=== PATIENT | female | born 1955 | race Caucasian/White ===

== ENCOUNTER 2020-09-08 09:31 | Outpatient (CLI) | payer OTHER, SELFPAY | END 2020-09-08 09:32 | disposition home or self-care (01) | LOC: ANHCOVIDVC 09:32 | PROVIDERS: PCP Family Medicine | DX: Z23 Encounter for immunization (principal) | CPT/HCPCS: 0001A; 91300 ==

== ENCOUNTER 2020-09-29 09:30 | Outpatient (CLI) | payer OTHER, SELFPAY | END 2020-09-29 09:31 | disposition home or self-care (01) | LOC: ANHCOVIDVC 09:30 | PROVIDERS: PCP Family Medicine | DX: Z23 Encounter for immunization (principal) | CPT/HCPCS: 0002A; 91300 ==

== ENCOUNTER 2020-10-03 12:03 | Outpatient (CLI) | payer OTHER, SELFPAY ==
--- NOTE | ~2020-10-03 | XR_ITS ---
EXAMINATION:XR cervical spine 4-5V DATE: 10/03/2020 12:19 INDICATION: Neck pain TECHNIQUE: AP, lateral, lateral swimmers and odontoid views of the cervical spine are provided. COMPARISON: 10/15/2018 FINDINGS: Alignment is normal. The odontoid is intact. No fracture is identified. There is unchanged moderate loss of intervertebral disc space height at C5-6 and C6-7. The vertebral body heights are ma intained. Small degenerative osteophytes project from the anterior endplates of multiple vertebral rhea dies. There is moderate multilevel facet and uncovertebral joint osteoarthritis Prevertebral soft tis sues are normal. IMPRESSION: 1. Moderate cervical spondylosis without acute findings or significant interval change. Reviewed, dictated and finalized at location A.
== END 2020-10-03 12:04 | disposition home or self-care (01) ==
PROVIDERS: PCP Family Medicine; Visit Provider Physician Assistant
DX: M47.892 Other spondylosis, cervical region (principal)
CPT/HCPCS: 72050

== ENCOUNTER 2021-03-17 19:44 | Emergency (ER) | payer OTHER, SELFPAY ==
--- NOTE | ~2021-03-17 | CT_ITS ---
EXAMINATION: CT brain wo con DATE: 03/18/2021 00:43 INDICATION: Right hemiparesis. TECHNIQUE: Computed tomography (CT) of the head was performed without intravenous contrast. The mA wa s adjusted according to patient size. Iterative reconstruction technique was employed. The dose-lengt h product was 605.33 mGy-cm. COMPARISON: None FINDINGS: There is no intracranial hemorrhage, acute infarction, or abnormal intracranial mass lesion . There are scattered areas of low attenuation in the cerebral white matter, which is within normal l imits for the patient's age. The ventricles are normal in size. There is mild mucosal thickening in t he paranasal sinuses. The orbits are normal. There is a small left mastoid effusion. IMPRESSION: 1. Normal aging brain. Reviewed, dictated and finalized at location A. IMPRESSION: 1. Normal aging brain.
--- NOTE | ~2021-03-17 | XR_ITS ---
EXAMINATION: XR chest 2V DATE: 03/17/2021 20:43 INDICATION: Weakness. Right-sided numbness and sweats. TECHNIQUE: PA and lateral views of the chest were obtained. COMPARISON: None FINDINGS: The lungs are clear with no focal airspace opacities, pulmonary edema, pleural effusion or pneumothor ax. The cardiomediastinal silhouette is normal. There are bridging osteophytes at multiple levels in the midthoracic spine consistent with diffuse idiopathic skeletal hyperostosis (DISH). IMPRESSION: 1. No acute cardiopulmonary disease. Reviewed, dictated and finalized at location A.
[2021-03-17 20:06] VITALS: BP 147/81; PULSE 63; RESP 14; TEMP 36.8; O2SAT 99
--- NOTE | 2021-03-17 20:10 | ECG_ITS ---
Measurements Intervals [place] Rate: 64 P: 44 CT: 172 QRS: -5 QRSD: 82 T: 49 QT: 398 QTc: 411 Interpretive Statements SINUS RHYTHM EARLY PRECORDIAL R/S TRANSITION LOW QRS VOLTAGE IN PRECORDIAL LEADS BORDERLINE T WAVE ABNORMALITY- ANTERIOR LEADS BORDERLINE ECG Electronically Signed On 03-18-2021 6:24:50 CDT by Parminder Anderson D.O.
[2021-03-17 21:21] LABS: Basophils Absolute Auto 0.1 K/mm3 (0.0-0.1); Basophils Percent Auto 0.7 % (0.2-1.2); Eosinophils Percent Auto 0.5 % (0-4.4); Hematocrit 47.1 % (37.0-47.0); Hemoglobin 15.8 g/dL (12.0-15.0); Immature Granulocyte Absolute 0.05 K/mm3 (0.00-0.031); Immature Granulocyte Percent A 0.7 % (0-0.5); Lymphocytes Absolute Auto 1.21 K/mm3 (0.9-3.2); Lymphocytes Percent Auto 15.9 % (18.3-44.2); Mean Corpuscular HGB Conc 33.5 g/dl (32-36); Mean Corpuscular Hemoglobin 30.4 pg (26-34); Mean Corpuscular Volume 90.8 fl (80-100); Mean Platelet Volume 9.6 fl (7.4-10.4); Monocytes Absolute Auto 0.6 K/mm3 (0.1-0.6); Monocytes Percent Auto 8.3 % (2.6-8.5); Neutrophils Absolute Auto 5.6 K/mm3 (1.3-6.7); Neutrophils Percent Auto 73.9 % (45.5-73.1); Platelet Count Result 235 k/mm3 (150-375); Red Blood Count 5.19 M/mm3 (4.2-5.4); Red Cell Distribution Width 13.2 % (11.5-14.5); White Blood Count 7.6 K/mm3 (4.5-10.0)
[2021-03-17 21:26] LABS: Add Urine Microscopic? YES; Appearance Urine Clear (Clear); Bacteria Urine Trace /hpf; Bilirubin Urine Negative (Negative); Blood Urine Negative (Negative); Color Urine Yellow (Yellow); Glucose Urine UA Negative (Negative); Ketones Urine Negative (Negative); Leukocyte Esterase Ur Trace LEU/UL (Negative); Mucus Urine Rare /lpf; Nitrate Urine Negative (Negative); Protein Urine Negative (Negative); Squamous Epithelial Cell Urine Occasional /hpf (Few); Urobilinogen Urine Negative mg/dL (<2.0)
[2021-03-17 21:29] LABS: Alanine Aminotransferase 59 U/L (4-35); Albumin Level 4.7 g/dL (3.5-5.1); Alkaline Phosphatase 140 U/L (38-126); Anion Gap 10 mmol/L (8-16); Aspartate Amino Transferase 51 U/L (14-36); Bilirubin,Total 0.6 mg/dL (0.2-1.3); Blood Urea Nitrogen 18 mg/dL (7-17); Calcium 10.5 mg/dL (8.4-10.2); Carbon Dioxide 28 mmol/L (22-30); Chloride 102 mmol/L (98-107); Estimated CRCL calculation 82 ml/min; Estimated Glomerular Filt Rate > 60; Glucose 212 mg/dL (65-110); Potassium 4.7 mmol/L (3.4-5.0); Sodium 140 mmol/L (137-145)
[2021-03-17 22:08] VITALS: BP 157/100; PULSE 69; RESP 14; O2SAT 97
--- NOTE | 2021-03-18 00:15 | ED.WEAKNESS ---
HPI - Weakness General Chief complaint: Weakness Stated complaint: weakness Time Seen by Provider: 03/18/21 00:14 Source: patient Mode of arrival: ambulatory Limitations: no limitations History of Present Illness HPI Narrative: Patient is 65-year-old female complaining of generalized weakness that started today but states that she has been having the symptoms on and off for the past months . Patient also states that she is been having right arm pain that accompanied by hand numbness that has been constant x1 month. Patient states that she did yard work today which could have aggravated the right arm pain and the numbness. Patient denies any speech or visual disturbance, focal weakness, headache, dizziness, unsteady gait, chest pain, shortness of breath, nausea, vomiting, diaphoresis, fever or chills. Related Data Home Medications Medication Instructions Recorded Confirmed buspirone mg 03/18/21 cetirizine mg 03/18/21 duloxetine mg PO 03/18/21 fenofibrate micronized mg 03/18/21 hydrochlorothiazide 03/18/21 levothyroxine 03/18/21 metformin mg 03/18/21 nystatin-triamcinolone applic TOPICAL 03/18/21 Allergies Allergy/AdvReac Type Severity Reaction Status Date / Time No Known Allergies Allergy Verified 03/18/21 00:46 Review of Systems Review of Systems: All systems reviewed & are unremarkable except as noted in HPI and below Constitutional: Constitutional: Denies body ache(s), Denies chills, Denies excessive sweating, Denies fatigue, Denies fever(s), Denies headache(s), Denies lethargy, Denies malaise and Denies weight loss Eyes: Eyes: Denies blurry vision, Denies change in vision and Denies loss of vision ENT: Denies dizziness, Denies ear discharge, Denies headache(s), Denies lip swelling, Denies epistaxis, Denies nasal congestion, Denies neck pain, Denies throat swelling and Denies tongue swelling Cardiovascular: Cardiovascular: Denies chest pain, Denies chest pain at rest, Denies chest pain with activity, Denies diaphoresis, Denies rapid heart rate, Denies edema, Denies irregular heart rhythm, Denies lightheadedness, Denies palpitations, Denies dyspnea and Denies dyspnea on exertion Respiratory: Respiratory: Denies chest congestion, Denies cough, Denies hemoptysis, Denies dyspnea and Denies dyspnea on exertion Gastrointestinal: Gastrointestinal: Denies abdominal pain, Denies melena, Denies hematochezia, Denies diarrhea, Denies nausea, Denies vomiting and Denies hematemesis Musculoskeletal: Musculoskeletal: Denies abnormal gait, Denies deformity, Denies joint swelling, Denies limited range of motion, Denies neck pain and Denies numbness Neurologic: Denies Abnormal speech present, Denies abnormal gait, Denies confusion, Denies dizziness, Denies headache(s), Denies focal weakness, Denies loss of vision, Denies Other visual disturbances and Denies Sensory deficit (Neuro) Psychiatric: Psychiatric: Denies confusion, Denies depression, Denies auditory hallucinations, Denies homicidal ideation and Denies suicidal ideation Endocrine: Endocrine: Denies cold intolerance, Denies excessive sweating, Denies fatigue, Denies heat intolerance and Denies palpitations Hematologic/Lymphatic: Hematologic/Lymphatic: Denies easy bleeding and Denies easy bruising Allergic/Immunologic: Allergic/Immunologic: Denies lip swelling, Denies throat swelling and Denies tongue swelling PMFSH Comments Past medical history: Diabetes, hypertension, hyperlipidemia Family history: Negative for CVA or [place] Social history: Non-smoker no EtOH or drug use Exam Const: General: cooperative, comfortable, no acute distress, well developed, alert and awake; No confusion Nutritional Appearance: obese Orientation/consciousness: oriented to person, oriented to place, oriented to time, patient oriented x3 and No confusion Limitations: no limitations HENMT: Head: normal to inspection, normocephalic and atraumatic Ears: hearing grossly normal bilaterally, TM n
[2021-03-18 00:42] VITALS: PULSE 64; RESP 20; O2SAT 96
[2021-03-18 02:36] VITALS: BP 176/98; PULSE 60; RESP 18; O2SAT 97
== END 2021-03-18 02:34 | disposition home or self-care (01) ==
PROVIDERS: Emergency Medicine; Emergency Provider Emergency Medicine
DX: R53.1 Weakness (principal); E11.65 Type 2 diabetes mellitus with hyperglycemia; I10 Essential (primary) hypertension; E78.5 Hyperlipidemia, unspecified; Z79.84 Long term (current) use of oral hypoglycemic drugs; R94.31 Abnormal electrocardiogram [ECG] [EKG]
CPT/HCPCS: 36415; 70450; 71046; 80053; 81001; 85025; 87077; 87086; 87088; 87186; 93005; 99284

== ENCOUNTER 2021-06-14 11:56 | Outpatient (CLI) | payer OTHER, SELFPAY ==
--- NOTE | ~2021-06-14 | XR_ITS ---
XR_CERV2-3V_CR DATE: 06/14/2021 12:27 INDICATION: Radiculopathy, cervical region. 1.5 weeks postoperative. TECHNIQUE: AP, open-mouth, lateral, swimmer views COMPARISON: 10/03/2020 cervical spine FINDINGS: Status post anterior and interbody spinal fusion at C4-C7. There is moderately prominent degenerative disease at C7-T1. C1 and C2 are normally aligned and the odontoid process is intact. No fracture or dislocation or lock ed facet. There is mild prevertebral soft tissue swelling, which may be postoperative. No prevertebra l soft tissue subcutaneous emphysema. IMPRESSION: Mild prevertebral soft tissue swelling, which may be postoperative Status post anterior and interbody spinal fusion at C4-C7 Moderately prominent degenerative disc disease at C7-T1 Reviewed, dictated and finalized at Location A. Reviewed, dictated and finalized at location B. G[facility]
== END 2021-06-14 11:57 | disposition home or self-care (01) ==
PROVIDERS: PCP Family Medicine
DX: M47.23 Other spondylosis with radiculopathy, cervicothoracic region (principal); Z98.1 Arthrodesis status; M79.89 Other specified soft tissue disorders
CPT/HCPCS: 72040

== ENCOUNTER → 2021-10-29 10:41 | Outpatient (CLI) | payer MEDICARE, OTHER, SELFPAY ==
--- NOTE | ~2021-10-29 | MM_ITS ---
EXAMINATION: MM screening talita BI w anjum HISTORY: Screening mammogram TECHNIQUE: Craniocaudal and mediolateral oblique 3-D tomosynthesis images were obtained and synthetic 2-D images were generated. CAD analysis was submitted and interpreted. COMPARISON: 11/30/2018, 10/10/2017 bilateral screening mammogram examinations BREAST PARENCHYMAL COMPOSITION: There are scattered areas of fibroglandular density. FINDINGS: Stable mildly nodular appearing fibroglandular stroma including stable approximately 5.6 mm circumscribed nodular density anteriorly in the inner aspect of the mid medial right breast. There i s no evidence of suspicious mass, calcification, or architectural distortion to suggest malignancy in either breast. There has been no suspicious interval change. IMPRESSION: 1. No mammographic evidence of malignancy. 2. Recommend routine screening mammography in one year. BI-RADS Category 2: Benign finding(s). Reviewed, dictated and finalized at location A.
== END ==
PROVIDERS: PCP Physician Assistant; Visit Provider Physician Assistant
DX: Z12.31 Encounter for screening mammogram for malignant neoplasm of breast (principal)
CPT/HCPCS: 77063; 77067

== ENCOUNTER → 2022-09-10 11:14 | Outpatient (CLI) | payer MEDICARE, OTHER, SELFPAY ==
--- NOTE | ~2022-09-10 | XR_ITS ---
EXAMINATION: XR chest 2V 09/10/2022 12:17 INDICATION: Cough and congestion PROCEDURE: 2 view chest COMPARISON: Comparison to multiple prior studies sequentially, with oldest reviewed study dated 04/27. FINDINGS: The lungs are clear. The cardiomediastinal silhouette is within normal limits. There are no pleural effusions. There is no pneumothorax suspected. There are surgical changes of cervicothor acic fusion, partially visualized. IMPRESSION: 1: NO ACUTE CARDIOPULMONARY DISEASE. Reviewed, dictated and finalized at location A.
== END ==
PROVIDERS: PCP Physician Assistant
DX: R05.3 Chronic cough (principal)
CPT/HCPCS: 71046

== ENCOUNTER 2022-09-20 17:54 | Emergency (ER) | payer MEDICARE, OTHER, SELFPAY ==
[2022-09-20 18:14] VITALS: BP 131/60; PULSE 60; RESP 20; TEMP 36.8; O2SAT 100
--- NOTE | 2022-09-20 18:48 | ED.URI ---
HPI - URI/Sore Throat General Chief Complaint: Upper Respiratory Infection Stated Complaint: congestion,rt eye pain Time Seen by Provider: 09/20/22 18:49 Source: patient and RN notes reviewed Mode of arrival: ambulatory Limitations: no limitations History of Present Illness HPI Narrative: 67-year-old female presented for complaint of pain over the right eye, with sudden onset today after taking a nap. Rates pain 6/10, described as sharp and stabbing. She also endorses her chronic decreased hearing has been worse over the past few days with associated stuffy head, sinus congestion, bilateral ear pain, and mild cough for 3 weeks. She was seen by her PCP 10 days ago, chest x-ray was ordered and lisinopril was dc'd. States the cough is improved since stopping the medication. She has been taking cetirizine, Flonase, and Benadryl. Left ear tube in place, follows with cut off saw tender metal. Denies shortness of breath, wheezing, nausea, vomiting, diarrhea, fevers or chills. MD elicited complaint: cough Related Data Home Medications Medication Instructions Recorded Confirmed aspirin 81 mg tablet,delayed 81 mg PO DAILY 06/13/19 09/20/22 release (Aspir-) cetirizine 10 mg chewable tablet 10 mg PO DAILY 06/13/19 09/20/22 fenofibrate micronized 134 mg 134 mg PO DAILY 06/13/19 09/20/22 capsule hydrochlorothiazide 12.5 mg tablet 12.5 mg PO DAILY 06/13/19 09/20/22 krill oil 500 mg capsule 500 mg PO DAILY 06/13/19 09/20/22 levothyroxine 88 mcg tablet 88 mcg PO DAILY 06/13/19 09/20/22 multivitamin with minerals 1 cap PO DAILY 06/13/19 09/20/22 acetaminophen 650 mg 650 mg PO Q12H 07/22/20 09/20/22 tablet,extended release (Tylenol Arthritis Pain) buspirone 7.5 mg tablet 10 mg PO BID 07/22/20 09/20/22 clobetasol 0.05 % topical cream 1 applic topical DAILY 07/22/20 09/20/22 duloxetine 60 mg capsule,delayed 60 mg PO DAILY 07/22/20 09/20/22 release ibuprofen 200 mg capsule (Advil 200 mg PO Q6H PRN Pain 07/22/20 09/20/22 Liqui-Gel) metformin 500 mg tablet 1,000 mg PO DAILY 07/22/20 09/20/22 Allergies Allergy/AdvReac Type Severity Reaction Status Date / Time No Known Allergies Allergy Verified 09/20/22 18:08 Review of Systems Review of Systems: per HPI [facility] Past Medical History Medical History Achilles tendinitis of right lower extremity Alcoholism Anxiety Arthritis BMI greater than 40 Carpal tunnel syndrome Depression Diabetes Type II Drug dependence Ear pain Hearing loss High blood pressure High cholesterol History of depression Hypothyroid IBS (irritable bowel syndrome) Left knee DJD Light headedness NIRANJAN (obstructive sleep apnea) Osteoarthritis Osteoporosis Polycythemia Posterior calcaneal exostosis Right knee DJD Sinus pain Sleep disorder Tooth disorder Urinary frequency UTI (urinary tract infection) Vision loss Wears glasses Weight gain Surgical History Surgical History History of 1979 History of carpal tunnel release bilateral, 1994 History of cholecystectomy 1998 History of ear surgery Ear drums, [id number] History of hysterectomy 2000 Family History Family History Other Arthritis Bladder incontinence Cancer Depression Diabetes mellitus Heart disease Hypertension Nerve disorder Social History Social History Smoking packs per day: 1.5 Smoking cigarettes per day: 30.0 Years smoked: 24 Smoking pack-years: 36.00 Tobacco type: cigarettes Smoking end date: 06/26/97 Alcohol intake: never Alcohol use details: 2 per year Substance use: never Substance use type: does not use Living arrangements: with family Gender identity (if verbalized by the patient): Female Exam Narrative: GENERAL: mildly Ill-appearing, nontoxic
== END 2022-09-20 19:15 | disposition home or self-care (01) ==
PROVIDERS: Emergency Provider Nurse Practitioner Family; PCP Family Medicine
DX: R51.9 Headache, unspecified (principal); H66.002 Acute suppurative otitis media without spontaneous rupture of ear drum, left ear; F17.210 Nicotine dependence, cigarettes, uncomplicated; F41.9 Anxiety disorder, unspecified; F32.A Depression, unspecified; E11.9 Type 2 diabetes mellitus without complications; I10 Essential (primary) hypertension; E78.00 Pure hypercholesterolemia, unspecified; M17.0 Bilateral primary osteoarthritis of knee; M81.0 Age-related osteoporosis without current pathological fracture
CPT/HCPCS: 99213; G0463

== ENCOUNTER 2022-09-22 11:37 | Emergency (ER) | payer MEDICARE, OTHER, SELFPAY ==
[2022-09-22 11:42] VITALS: BP 126/89; PULSE 67; RESP 18; TEMP 36.9; O2SAT 100
--- NOTE | 2022-09-22 11:47 | ECG_ITS ---
Measurements Intervals [place] Rate: 59 P: 56 [place]: 172 QRS: 16 QRSD: 88 T: 55 QT: 403 QTc: 400 Interpretive Statements SINUS BRADYCARDIA LOW QRS VOLTAGE IN PRECORDIAL LEADS BORDERLINE ST-T WAVE ABNORMALITY- ANT/INF LEADS BASELINE WANDER- AVR, AVF, V2, V6 BORDERLINE ECG NO PREVIOUS ECG AVAILABLE FOR COMPARISON Electronically Signed On 09-22-2022 15:26:47 CDT by Parminder Anderson D.O.
--- NOTE | 2022-09-22 12:02 | ED.PSYCH ---
HPI - Psych General Chief Complaint: Psychiatric Symptoms Stated Complaint: SI Time Seen by Provider: 09/22/22 11:56 History of Present Illness HPI Narrative: 67-year-old female history of hypertension, dyslipidemia, hypothyroidism, anxiety and depression presents to the emergency room for evaluation of depression with suicidal ideation. Patient states that she has been depressed for significant length of time, her PCP recently increased her BuSpar. States recently has been having thoughts of hurting herself, does have a plan which includes turning on the gas. Reports having difficulty concentrating. Sleeping issues, overeating, thoughts of hopelessness. Patient is accompanied with family Related Data Home Medications Medication Instructions Recorded Confirmed aspirin 81 mg tablet,delayed 81 mg PO DAILY 06/13/19 09/20/22 release (Aspir-) cetirizine 10 mg chewable tablet 10 mg PO DAILY 06/13/19 09/20/22 fenofibrate micronized 134 mg 134 mg PO DAILY 06/13/19 09/20/22 capsule hydrochlorothiazide 12.5 mg tablet 12.5 mg PO DAILY 06/13/19 09/20/22 krill oil 500 mg capsule 500 mg PO DAILY 06/13/19 09/20/22 levothyroxine 88 mcg tablet 88 mcg PO DAILY 06/13/19 09/20/22 multivitamin with minerals 1 cap PO DAILY 06/13/19 09/20/22 acetaminophen 650 mg 650 mg PO Q12H 07/22/20 09/20/22 tablet,extended release (Tylenol Arthritis Pain) buspirone 7.5 mg tablet 10 mg PO BID 07/22/20 09/20/22 clobetasol 0.05 % topical cream 1 applic topical DAILY 07/22/20 09/20/22 duloxetine 60 mg capsule,delayed 60 mg PO DAILY 07/22/20 09/20/22 release ibuprofen 200 mg capsule (Advil 200 mg PO Q6H PRN Pain 07/22/20 09/20/22 Liqui-Gel) metformin 500 mg tablet 1,000 mg PO DAILY 07/22/20 09/20/22 Allergies Allergy/AdvReac Type Severity Reaction Status Date / Time No Known Allergies Allergy Verified 09/20/22 18:08 Review of Systems Review of Systems: CONSTITUTIONAL: Denies fever, chills, or sweats. EYES: Denies visual changes, redness, or discharge. ENT: Denies rhinorrhea, congestion, sore throat, or otalgia. CARDIOVASCULAR: Denies chest pain, palpitations, or edema. RESPIRATORY: Denies cough or dyspnea. GASTROINTESTINAL: Denies abdominal pain, nausea, vomiting, or diarrhea. GENITOURINARY: Denies dysuria or hematuria. SKIN: Denies rash or itching. MUSCULOSKELETAL: Denies back pain, joint pain, or myalgia. NEUROLOGIC: Denies headache, numbness, dizziness, or weakness. PSYCHIATRIC: Anxiety and depression per [facility] Past Medical History Medical History Achilles tendinitis of right lower extremity Alcoholism Anxiety Arthritis BMI greater than 40 Carpal tunnel syndrome Depression Diabetes Type II Drug dependence Ear pain Hearing loss High blood pressure High cholesterol History of depression Hypothyroid IBS (irritable bowel syndrome) Left knee DJD Light headedness NIRANJAN (obstructive sleep apnea) Osteoarthritis Osteoporosis Polycythemia Posterior calcaneal exostosis Right knee DJD Sinus pain Sleep disorder Tooth disorder Urinary frequency UTI (urinary tract infection) Vision loss Wears glasses Weight gain Surgical History Surgical History History of 1980 History of carpal tunnel release bilateral, 1994 History of cholecystectomy 1998 History of ear surgery Ear drums, [phone] History of hysterectomy 2000 Family History Family History Other Arthritis Bladder incontinence Cancer Depression Diabetes mellitus Heart disease Hypertension Nerve disorder Social History Social History Smoking packs per day: 1.5 Smoking cigarettes per day: 30.0 Years smoked: 24 Smoking pack-years: 36.00 Tobacco type: cigarettes Smoking end date: 06/26/97 Alcohol intake: n
[2022-09-22 12:14] VITALS: TEMP 36.4
[2022-09-22 12:16] LABS: Basophils Percent Auto 0.6 % (0.2-1.2); Eosinophils Absolute Auto 0.1 K/mm3 (0-0.3); Eosinophils Percent Auto 1.5 % (0-4.4); Hematocrit 49.1 % (37.0-47.0); Hemoglobin 15.8 g/dL (12.0-15.0); Immature Granulocyte Absolute 0.04 K/mm3 (0.00-0.031); Immature Granulocyte Percent A 0.7 % (0-0.5); Lymphocytes Absolute Auto 1.41 K/mm3 (0.9-3.2); Lymphocytes Percent Auto 26.1 % (18.3-44.2); Mean Corpuscular HGB Conc 32.2 g/dl (32-36); Mean Corpuscular Hemoglobin 28.7 pg (26-34); Mean Corpuscular Volume 89.3 fl (80-100); Mean Platelet Volume 9.4 fl (7.4-10.4); Monocytes Absolute Auto 0.4 K/mm3 (0.1-0.6); Monocytes Percent Auto 7.2 % (2.6-8.5); Neutrophils Absolute Auto 3.5 K/mm3 (1.3-6.7); Neutrophils Percent Auto 63.9 % (45.5-73.1); Platelet Count Result 289 k/mm3 (150-375); Red Cell Distribution Width 13.7 % (11.5-14.5); White Blood Count 5.4 K/mm3 (4.5-10.0)
[2022-09-22 12:24] LABS: Alanine Aminotransferase 50 U/L (6-35); Albumin Level 5.1 g/dL (3.5-5.1); Alkaline Phosphatase 142 U/L (38-126); Anion Gap 8 mmol/L (8-16); Aspartate Amino Transferase 52 U/L (14-36); Bilirubin,Total 0.8 mg/dL (0.2-1.3); Blood Urea Nitrogen 18 mg/dL (7-17); Carbon Dioxide 29 mmol/L (22-30); Chloride 103 mmol/L (98-107); Estimated CRCL calculation 90 ml/min; Estimated Glomerular Filt Rate > 60; Glucose 136 mg/dL (65-110); Potassium 3.9 mmol/L (3.4-5.0); Sodium 140 mmol/L (137-145)
[2022-09-22 12:29] LABS: Acetaminophen < 10 ug/mL (10-30); Ethanol < 10 mg/dL (<10); Salicylate < 1.0 mg/dL (2-20)
[2022-09-22 12:38] LABS: Amphetamine Screen Urine Negative (Negative); Barbiturate Screen Urine Negative (Negative); Benzodiazepines Screen Urine Negative (Negative); Cannabinoid Screen Urine Negative (Negative); Cocaine Screen Urine Negative (Negative); Methadone Screen Urine Negative (Negative); Opiate Screen Urine Negative (Negative); Phencyclidine Screen Urine Negative (Negative)
[2022-09-22 12:44] LABS: Appearance Urine Cloudy (Clear); Bacteria Urine None Seen /hpf; Bilirubin Urine Negative (Negative); Blood Urine Negative (Negative); Color Urine Yellow (Yellow); Glucose Urine UA Negative (Negative); Ketones Urine Negative (Negative); Leukocyte Esterase Ur Negative LEU/UL (Negative); Need Manual Microscopic Reviewed; Nitrate Urine Negative (Negative); Non Pathogenic Casts 0-2; Protein Urine Negative (Negative); Specific Grav Ur 1.018 (1.001-1.035); Squamous Epithelial Cell Urine Occasional /hpf (Few); Urobilinogen Urine 0.2 mg/dL (<2.0); WBC Urine 0-5 /hpf; pH Urine 5.5 (5.0-9.0)
[2022-09-22 12:45] LABS: Add Urine Microscopic? YES
[2022-09-22 12:53] LABS: SARS-CoV-2 RNA PCR Negative
[2022-09-22 14:38] VITALS: BP 160/98; PULSE 65; RESP 16; O2SAT 99
== END 2022-09-22 14:39 | disposition home or self-care (01) ==
PROVIDERS: Emergency Medicine; Emergency Provider Nurse Practitioner Family; PCP Family Medicine
DX: F32.A Depression, unspecified (principal); Z20.822 Contact with and (suspected) exposure to COVID-19; I10 Essential (primary) hypertension; E03.9 Hypothyroidism, unspecified; E78.00 Pure hypercholesterolemia, unspecified; F41.9 Anxiety disorder, unspecified; E11.9 Type 2 diabetes mellitus without complications; K58.9 Irritable bowel syndrome, unspecified; M17.0 Bilateral primary osteoarthritis of knee; M81.0 Age-related osteoporosis without current pathological fracture; D75.1 Secondary polycythemia; G47.33 Obstructive sleep apnea (adult) (pediatric); Z87.440 Personal history of urinary (tract) infections; Z87.891 Personal history of nicotine dependence; Z90.710 Acquired absence of both cervix and uterus; Z79.899 Other long term (current) drug therapy; Z79.84 Long term (current) use of oral hypoglycemic drugs; Z79.82 Long term (current) use of aspirin; R00.1 Bradycardia, unspecified; R94.31 Abnormal electrocardiogram [ECG] [EKG]
CPT/HCPCS: 36415; 80053; 80307; 81001; 84443; 85025; 93005; 99283; 99284; U0003; U0005

== ENCOUNTER 2022-10-08 15:53 | Emergency (ER) | payer MEDICARE, OTHER, SELFPAY ==
--- NOTE | 2022-10-08 16:17 | ED.EAR ---
HPI - Ear Problem General Chief complaint: Ear Stated complaint: rt ear pain Time Seen by Provider: 10/08/22 16:05 Source: patient Mode of arrival: ambulatory Limitations: no limitations History of Present Illness HPI Narrative: Ms. Bustos is a 67-year-old female patient presenting to the clinic today with complaints of right-sided ear pain x2 days. She reports that she is unable to hear out of it and she has got a lot a pressure in her head. States she has been recently treated for an ear infection of the left ear and was given Augmentin for that. She denies any fever or chills. She is concerned that her eardrum may be ruptured. Related Data Home Medications Medication Instructions Recorded Confirmed cetirizine 10 mg chewable tablet 10 mg PO DAILY 06/13/19 10/08/22 fenofibrate micronized 134 mg 134 mg PO DAILY 06/13/19 10/08/22 capsule hydrochlorothiazide 12.5 mg tablet 12.5 mg PO DAILY 06/13/19 10/08/22 krill oil 500 mg capsule 500 mg PO DAILY 06/13/19 10/08/22 levothyroxine 88 mcg tablet 88 mcg PO DAILY 06/13/19 10/08/22 multivitamin with minerals 1 cap PO DAILY 06/13/19 10/08/22 acetaminophen 650 mg 650 mg PO Q12H 07/22/20 10/08/22 tablet,extended release (Tylenol Arthritis Pain) buspirone 7.5 mg tablet 10 mg PO BID 07/22/20 10/08/22 clobetasol 0.05 % topical cream 1 applic topical DAILY 07/22/20 10/08/22 duloxetine 60 mg capsule,delayed 60 mg PO DAILY 07/22/20 10/08/22 release ibuprofen 200 mg capsule (Advil 200 mg PO Q6H PRN Pain 07/22/20 10/08/22 Liqui-Gel) metformin 500 mg tablet 1,000 mg PO DAILY 07/22/20 10/08/22 Allergies Allergy/AdvReac Type Severity Reaction Status Date / Time No Known Allergies Allergy Verified 10/08/22 16:14 Review of Systems Review of Systems: Pertinent positives per HPI. Patient denies any fever, chills, rash, headache, visual changes, dizziness, cough, shortness of breath, chest pain, palpitations, nausea, vomiting, diarrhea, constipation, abdominal pain, or any urinary issues. [facility] Past Medical History Medical History Achilles tendinitis of right lower extremity Alcoholism Anxiety Arthritis BMI greater than 40 Carpal tunnel syndrome Depression Diabetes Type II Drug dependence Ear pain Hearing loss High blood pressure High cholesterol History of depression Hypothyroid IBS (irritable bowel syndrome) Left knee DJD Light headedness NIRANJAN (obstructive sleep apnea) Osteoarthritis Osteoporosis Polycythemia Posterior calcaneal exostosis Right knee DJD Sinus pain Sleep disorder Tooth disorder Urinary frequency UTI (urinary tract infection) Vision loss Wears glasses Weight gain Surgical History Surgical History History of 1979 History of carpal tunnel release bilateral, 1994 History of cholecystectomy 1998 History of ear surgery Ear drums, [id number] History of hysterectomy 2000 Family History Family History Other Arthritis Bladder incontinence Cancer Depression Diabetes mellitus Heart disease Hypertension Nerve disorder Social History Social History Smoking packs per day: 1.5 Smoking cigarettes per day: 30.0 Years smoked: 24 Smoking pack-years: 36.00 Tobacco type: cigarettes Smoking end date: 06/26/97 Alcohol intake: never Alcohol use details: 2 per year Substance use: never Substance use type: does not use Living arrangements: with family Gender identity (if verbalized by the patient): Female Comments At the time of my signature, I reviewed and agree with the nursing past medical, surgical, social, and family history. There is no relevant family history pertinent to the patient complaint. Exam Narrative: General: Well-developed, well nou
[2022-10-08 17:59] VITALS: BP 137/60; PULSE 72; RESP 18; TEMP 36.5; O2SAT 98
== END 2022-10-08 16:20 | disposition home or self-care (01) ==
PROVIDERS: Emergency Provider Nurse Practitioner Family
DX: H66.91 Otitis media, unspecified, right ear (principal); F41.9 Anxiety disorder, unspecified; M19.90 Unspecified osteoarthritis, unspecified site; E11.9 Type 2 diabetes mellitus without complications; F32.A Depression, unspecified; E78.00 Pure hypercholesterolemia, unspecified; M17.0 Bilateral primary osteoarthritis of knee; M81.0 Age-related osteoporosis without current pathological fracture
CPT/HCPCS: 99213; G0463

== ENCOUNTER → 2023-01-16 12:13 | Outpatient (CLI) | payer MEDICARE, OTHER, SELFPAY ==
--- NOTE | ~2023-01-16 | MM_ITS ---
EXAMINATION: MM screening talita BI w anjum HISTORY: Screening mammogram, family history of breast cancer in her sister. TECHNIQUE: Craniocaudal and mediolateral oblique 3-D tomosynthesis images were obtained and synthetic 2-D images were generated. CAD analysis was submitted and interpreted. COMPARISON: 10/29/2021, 11/30/2018, 10/10/2017 BREAST PARENCHYMAL COMPOSITION: The breasts are almost entirely fatty. FINDINGS: No suspicious mass, calcification, or architectural distortion are identified in either naomi ast to suggest malignancy. There has been no suspicious interval change. IMPRESSION: 1. No mammographic evidence of malignancy. 2. Recommend routine screening mammography in one year. BI-RADS Category 1: Negative Reviewed, dictated and finalized at location A.
== END ==
PROVIDERS: PCP Physician Assistant; Visit Provider Physician Assistant
DX: Z12.31 Encounter for screening mammogram for malignant neoplasm of breast (principal)
CPT/HCPCS: 77063; 77067

== ENCOUNTER 2023-10-14 12:12 | Emergency (ER) | payer MEDICARE, OTHER, SELFPAY ==
--- NOTE | ~2023-10-14 | CT_ITS ---
EXAMINATION: CT BRAIN W/O DATE: 10/14/2023 12:42 INDICATION: Status post fall. Head injury. TECHNIQUE: Computed tomography (CT) of the head was performed without intravenous contrast. The dose- length product was 605.33 mGy-cm. COMPARISON: No prior studies for comparison. FINDINGS: Normal brain parenchymal volume for age. Normal alfredo-white differentiation. No acute intrac ranial hemorrhage, infarction, mass or mass effect. No ventriculomegaly or midline shift. Midline sagittal images demonstrate a normal corpus callosum, c raniovertebral junction and sella turcica. Basilar cisterns are patent. There are nasal fractures. There is deviation of the nasal septum to the left. There is a nasal septa l fracture. IMPRESSION: 1. No acute intracranial abnormality. 2: Mildly displaced nasal fractures. Reviewed, dictated and finalized at location A.
--- NOTE | ~2023-10-14 | CT_ITS ---
EXAMINATION: CT facial & cervical spine wo DATE: 10/14/2023 12:42 INDICATION: Status post fall. Facial and neck pain. TECHNIQUE: Computed tomography (CT) of the maxillofacial region and cervical spine was performed with out intravenous contrast. The dose-length product was 563.29 mGy-cm. Automated exposure control and i terative reconstruction technique were employed. COMPARISON: None FINDINGS: MAXILLOFACIAL CT: There are displaced nasal fractures. There is a nasal septal fracture with deviation to the left. Orb its are intact. Paranasal sinuses are pneumatized. Mandible within normal limits. Pterygoid plates an d zygomatic arches are normal. CERVICAL SPINE CT: Status post anterior cervical fusion and discectomy at C4-C7. There is dextroscoliosis. Odontoid proc ess is normal. There is multilevel uncinate hypertrophy. Lung apices are normal. There is moderate di sc narrowing and endplate hypertrophy at C7-T1. No evidence for perched facet. Craniovertebral juncti on is normal. IMPRESSION: 1. Displaced comminuted nasal fractures. Nasal septal fracture with deviation to the left. Reviewed, dictated and finalized at location A. IMPRESSION: 1. Displaced comminuted nasal fractures. Nasal septal fracture with deviation t o the left.
[2023-10-14 12:20] VITALS: BP 155/77; PULSE 71; RESP 16; TEMP 36.4; O2SAT 97
--- NOTE | 2023-10-14 12:22 | ED.FALL ---
HPI - Fall General Chief Complaint: Fall <Dereck Briscoe APRN - Last Filed: 10/14/23 16:16> Stated Complaint: face vs sidewalk <Dereck Briscoe APRN - Last Filed: 10/14/23 16:16> Time Seen by Provider: 10/14/23 12:21 <Dereck Briscoe APRN - Last Filed: 10/14/23 16:16> Source: patient <Dereck Briscoe APRN - Last Filed: 10/14/23 16:16> Mode of arrival: ambulatory <Dereck Briscoe APRN - Last Filed: 10/14/23 16:16> Limitations: no limitations <Dereck Briscoe APRN - Last Filed: 10/14/23 16:16> History of Present Illness HPI Narrative: Kristal is a 68-year-old female patient presenting to the emergency room today with complaints of falling down face first on the sidewalk just prior to arrival. She has a laceration to the bridge of her nose and abrasion to her forehead and nose. Right-sided epistaxis. Denies loss of consciousness-has some slight neck stiffness <Dereck Briscoe APRN - Last Filed: 10/14/23 16:16> Related Data Home Medications: Home Medications Medication Instructions Recorded Confirmed cetirizine 10 mg chewable tablet 10 mg PO DAILY 06/13/19 10/08/22 fenofibrate micronized 134 mg 134 mg PO DAILY 06/13/19 10/08/22 capsule hydrochlorothiazide 12.5 mg tablet 12.5 mg PO DAILY 06/13/19 10/08/22 krill oil 500 mg capsule 500 mg PO DAILY 06/13/19 10/08/22 levothyroxine 88 mcg tablet 88 mcg PO DAILY 06/13/19 10/08/22 multivitamin with minerals 1 cap PO DAILY 06/13/19 10/08/22 acetaminophen 650 mg 650 mg PO Q12H 07/22/20 10/08/22 tablet,extended release (Tylenol Arthritis Pain) buspirone 7.5 mg tablet 10 mg PO BID 07/22/20 10/08/22 clobetasol 0.05 % topical cream 1 applic topical DAILY 07/22/20 10/08/22 duloxetine 60 mg capsule,delayed 60 mg PO DAILY 07/22/20 10/08/22 release ibuprofen 200 mg capsule (Advil 200 mg PO Q6H PRN Pain 07/22/20 10/08/22 Liqui-Gel) metformin 500 mg tablet 1,000 mg PO DAILY 07/22/20 10/08/22 <Dereck Briscoe APRN - Last Filed: 10/14/23 16:16> Allergies/Adverse Reactions: Allergies Allergy/AdvReac Type Severity Reaction Status Date / Time No Known Allergies Allergy Verified 10/14/23 16:01 <Dereck Briscoe APRN - Last Filed: 10/14/23 16:16> Review of Systems Review of Systems: Pertinent positives per HPI. Patient denies any fever, chills, rash, headache, visual changes, dizziness, cough, runny nose, sore throat, shortness of breath, chest pain, palpitations, nausea, vomiting, diarrhea, constipation, abdominal pain, or any urinary issues. <Dereck Briscoe APRN - Last Filed: 10/14/23 16:16> [facility] Past Medical History Medical History: Medical History Achilles tendinitis of right lower extremity Alcoholism Anxiety Arthritis BMI greater than 40 Carpal tunnel syndrome Depression Diabetes Type II Drug dependence Ear pain Hearing loss High blood pressure High cholesterol History of depression Hypothyroid IBS (irritable bowel syndrome) Left knee DJD Light headedness NIRANJAN (obstructive sleep apnea) Osteoarthritis Osteoporosis Polycythemia Posterior calcaneal exostosis Right knee DJD Sinus pain Sleep disorder Tooth disorder Urinary frequency UTI (urinary tract infection) Vision loss Wears glasses Weight gain <Dereck Briscoe APRN - Last Filed: 10/14/23 16:16> Surgical History Surgical History: Surgical History History of 1979 History of carpal tunnel release bilateral, 1994 History of cholecystectomy 1998 History of ear surgery Ear drums, [id number] History of hysterectomy 2000 <Dereck Briscoe APRN - Last Filed: 10/14/23 16:16> Family History Family History: Family History Other Arthritis Bladder incontinence Cancer Depression
[2023-10-14 12:58] LABS: Glucose Point of Care 176 mg/dl (65-105)
[2023-10-14] MEDS: HYDROcodone/acetaminophen (*CRX) 7.5-325 MG TABLET 1 TAB PO (16:00)
[2023-10-14 16:33] VITALS: BP 152/67; PULSE 67; RESP 20; O2SAT 99
== END 2023-10-14 16:35 | disposition home or self-care (01) ==
PROVIDERS: Emergency Provider Nurse Practitioner Family; PCP Physician Assistant
DX: S02.2XXB Fracture of nasal bones, initial encounter for open fracture (principal); S00.81XA Abrasion of other part of head, initial encounter; R04.0 Epistaxis; I10 Essential (primary) hypertension; E11.9 Type 2 diabetes mellitus without complications; E78.00 Pure hypercholesterolemia, unspecified; E66.01 Morbid (severe) obesity due to excess calories; Z68.42 Body mass index [BMI] 45.0-49.9, adult; K58.9 Irritable bowel syndrome, unspecified; G47.33 Obstructive sleep apnea (adult) (pediatric); M17.0 Bilateral primary osteoarthritis of knee; M81.0 Age-related osteoporosis without current pathological fracture; F41.9 Anxiety disorder, unspecified; F32.A Depression, unspecified; Z87.440 Personal history of urinary (tract) infections; Z87.891 Personal history of nicotine dependence; Z90.49 Acquired absence of other specified parts of digestive tract; Z90.710 Acquired absence of both cervix and uterus; Z79.84 Long term (current) use of oral hypoglycemic drugs; W18.30XA Fall on same level, unspecified, initial encounter
CPT/HCPCS: 12011; 30901; 30903; 70450; 70486; 72125; 82948; 99284; A9270

== ENCOUNTER 2023-10-16 09:11 | Emergency (ER) | payer MEDICARE, OTHER, SELFPAY ==
[2023-10-16 09:26] VITALS: BP 137/67; PULSE 86; RESP 20; TEMP 36.2; O2SAT 96
--- NOTE | 2023-10-16 12:04 | ED.GENADULT ---
HPI - General Adult General Chief complaint: Unspecified Stated complaint: pt here to having nasal packing removed Time Seen by Provider: 10/16/23 11:50 History of Present Illness HPI narrative: Kristal Bustos is a 68 y/o female who presents today to get her rhino rockets removed from her nose. She was evaluated here 2 days ago after a fall and suffered nasal bone fracture/ and could not get her nose to stop bleeding and two rhino rockets were placed and told to return for removal if she could not get in to see her ENT Dr. Delong. She tried to get in to see her ENT and he will not see her since he is not affiliated with this [facility]. She denies any other complaints/ concerns with her nose / fall or injury Related Data Home Medications Medication Instructions Recorded Confirmed cetirizine 10 mg chewable tablet 10 mg PO DAILY 06/13/19 10/08/22 fenofibrate micronized 134 mg 134 mg PO DAILY 06/13/19 10/08/22 capsule hydrochlorothiazide 12.5 mg tablet 12.5 mg PO DAILY 06/13/19 10/08/22 krill oil 500 mg capsule 500 mg PO DAILY 06/13/19 10/08/22 levothyroxine 88 mcg tablet 88 mcg PO DAILY 06/13/19 10/08/22 multivitamin with minerals 1 cap PO DAILY 06/13/19 10/08/22 acetaminophen 650 mg 650 mg PO Q12H 07/22/20 10/08/22 tablet,extended release (Tylenol Arthritis Pain) buspirone 7.5 mg tablet 10 mg PO BID 07/22/20 10/08/22 clobetasol 0.05 % topical cream 1 applic topical DAILY 07/22/20 10/08/22 duloxetine 60 mg capsule,delayed 60 mg PO DAILY 07/22/20 10/08/22 release ibuprofen 200 mg capsule (Advil 200 mg PO Q6H PRN Pain 07/22/20 10/08/22 Liqui-Gel) metformin 500 mg tablet 1,000 mg PO DAILY 07/22/20 10/08/22 Allergies Allergy/AdvReac Type Severity Reaction Status Date / Time No Known Allergies Allergy Verified 10/16/23 09:12 Review of Systems Review of Systems: All systems reviewed & are unremarkable except as noted in HPI and below PMFSH Past Medical History Medical History Achilles tendinitis of right lower extremity Alcoholism Anxiety Arthritis BMI greater than 40 Carpal tunnel syndrome Depression Diabetes Type II Drug dependence Ear pain Hearing loss High blood pressure High cholesterol History of depression Hypothyroid IBS (irritable bowel syndrome) Left knee DJD Light headedness NIRANJAN (obstructive sleep apnea) Osteoarthritis Osteoporosis Polycythemia Posterior calcaneal exostosis Right knee DJD Sinus pain Sleep disorder Tooth disorder Urinary frequency UTI (urinary tract infection) Vision loss Wears glasses Weight gain Surgical History Surgical History History of 1979 History of carpal tunnel release bilateral, 1994 History of cholecystectomy 1998 History of ear surgery Ear drums, [id number] History of hysterectomy 2000 Family History Family History Other Arthritis Bladder incontinence Cancer Depression Diabetes mellitus Heart disease Hypertension Nerve disorder Social History Social History Smoking packs per day: 1.5 Smoking cigarettes per day: 30.0 Years smoked: 24 Smoking pack-years: 36.00 Tobacco type: cigarettes Smoking end date: 06/26/97 Alcohol intake: never Alcohol use details: 2 per year Substance use: never Substance use type: does not use Living arrangements: with family Gender identity (if verbalized by the patient): Female Exam Narrative: GENERAL: Well-appearing, well-nourished, and in no acute distress. HEAD: Normocephalic, atraumatic. EYES: PERRLA and EOMI. ENT Mucous membranes moist. Oropharynx without tonsillar hypertrophy exudate or other lesions. Bilateral rhino rockets in place and saturated with blood exteriorly NECK: Supple. No adenopathy or masses. No carotid bruits or JVD CHEST
[2023-10-16 12:57] VITALS: BP 135/62; PULSE 85; RESP 16; O2SAT 98
== END 2023-10-16 12:58 | disposition home or self-care (01) ==
PROVIDERS: Emergency Provider Nurse Practitioner Family; PCP Physician Assistant
DX: Z48.00 Encounter for change or removal of nonsurgical wound dressing (principal); I10 Essential (primary) hypertension; E11.9 Type 2 diabetes mellitus without complications; E78.00 Pure hypercholesterolemia, unspecified; E66.01 Morbid (severe) obesity due to excess calories; Z68.42 Body mass index [BMI] 45.0-49.9, adult; K58.9 Irritable bowel syndrome, unspecified; G47.33 Obstructive sleep apnea (adult) (pediatric); M17.0 Bilateral primary osteoarthritis of knee; M81.0 Age-related osteoporosis without current pathological fracture; F41.9 Anxiety disorder, unspecified; F32.A Depression, unspecified; Z87.440 Personal history of urinary (tract) infections; Z87.891 Personal history of nicotine dependence; Z90.49 Acquired absence of other specified parts of digestive tract; Z90.710 Acquired absence of both cervix and uterus; Z79.84 Long term (current) use of oral hypoglycemic drugs
CPT/HCPCS: 99281

== ENCOUNTER 2023-10-20 09:30 | Outpatient (CLI) | payer MEDICARE, OTHER, SELFPAY ==
--- NOTE | 2023-10-20 09:48 | ECG_ITS ---
SEE SCANNED COPY FOR CONFIRMED REPORT MTDD
[2023-10-20 10:08] LABS: Hematocrit 43.4 % (37.0-47.0); Hemoglobin 14.1 g/dL (12.0-15.0)
[2023-10-20 10:18] LABS: Anion Gap 6 mmol/L (4-12); Blood Urea Nitrogen 20 mg/dL (7-17); Calcium 10.7 mg/dL (8.4-10.2); Carbon Dioxide 29 mmol/L (22-30); Chloride 101 mmol/L (98-107); Estimated Glomerular Filt Rate 45; Glucose 174 mg/dL (65-110); INR 1.1; Potassium 4.8 mmol/L (3.4-5.0); Prothrombin Time 14.1 Seconds (11.1-14.7); Sodium 136 mmol/L (137-145)
[2023-10-20 10:19] LABS: Partial Thromboplastin Time 31.6 Seconds (22.3-36.8)
== END 2023-10-20 09:31 | disposition home or self-care (01) ==
LOC: ANHSURGERY 09:36
PROVIDERS: Anesthesiology; PCP Physician Assistant; Visit Provider Otolaryngology
DX: Z01.818 Encounter for other preprocedural examination (principal); D45 Polycythemia vera; E11.9 Type 2 diabetes mellitus without complications; I10 Essential (primary) hypertension
CPT/HCPCS: 36415; 80048; 85014; 85018; 85610; 85730; 93005

== ENCOUNTER 2023-10-23 03:34 | Day surgery (SDC) | payer MEDICARE, OTHER, SELFPAY ==
--- NOTE | 2023-10-19 09:42 | PC.NURSE ---
Report to the Outpatient Waiting Room, entrance under the green pavilion located off [facility], at time _1200 on date _10/23/23 . Planned Procedure Time: _2 PM . Time changes happen often and if your time is changed the preop area will call you the afternoon before. - You and your visitor will be asked to self-screen and do not enter if you have any COVID symptoms. - A mask is optional within the hospital at this time. Patients may have clear liquids (water, carbonated beverages, clear teas, apple juice) until 3 hours prior to surgery (11:00 AM )with a maximum of 20 ounces. - No food from midnight until time of surgery - Infants may have breast milk until 4 hours before surgery, formula 6 hours prior to surgery. - Children will be allowed to drink immediately following surgery. If applicable, please bring a bottle or sippy cup to assist with drinking. Juice, water, soda, and popsicles are readily available. For infants on formula, please bring formula the day of surgery. Pacifiers are allowed. Take the following medications with a SIP of water the morning of surgery: ___BUSPIRONE,DULOXETINE,LEVOTHYROXINE DO NOT STOP ANY OF YOUR OTHER PRESCRIPTION MEDICATIONS PRIOR TO SURGERY ?EXCEPT THE FOLLOWING Medications to discontinue per physician _HOLD ALL VITAMINS AND SUPPLEMENTS 3 DAYS PRE OP.LAST DOSE 10/19/23 Please no make-up, nail marshallese, hairspray, perfume, deodorant, or body powder the day of surgery. No jewelry (including any body piercings) or valuables the day of surgery, leave them at home. Please take a shower or bath the night before, or the morning of, surgery with an antibacterial soap. Wear comfortable, loose fitting clothing. Children are encouraged to wear pajamas. - Jewelry must be removed prior to entering the operating room. Rings and piercings that are not removed may be cut off. - The hospital will not accept responsibility for valuables. - Please leave all valuables, including medications, at home the day of surgery. If you are going home after surgery, a licensed class c driver must drive you home. - NO public transportation without another adult if you receive anesthesia. - We recommend that an adult stay with you for 24 hours following discharge. - We also recommend that you do not drive, make important decision, drink alcoholic beverages, or take any drugs that were not prescribed by your health care provider for at least 24 hours after your discharge time Follow any additional instructions given to you from your surgeon. If you or anyone in your household have experienced Covid symptoms in the past week, please notify your surgeon or the nurse liaison at the phone number below for possible testing. Telephone instructions given to ___PATIENT and asked if any additional questions and then verbalized understanding. Patient advised to call surgeon office or pre surgery nurse liaison [phone] if any additional questions.
[2023-10-19 09:57] VITALS: BMI 48.0
[2023-10-23] VITALS (8 sets, daily range): BP systolic 111–142; BP diastolic 58–91; PULSE 62–67; RESP 14–16; TEMP 36.8; O2SAT 96–100; BMI 45.8
[2023-10-23 12:34] LABS: Glucose Point of Care 105 mg/dl (65-105)
[2023-10-23] MEDS: OXYMETAZOLINE HCL 0.05% NAS 15 ML BTL (*BKC) 1 SPRAY NASAL (13:01)
[2023-10-23] MEDS: ACETAMINOPHEN 500 MG TABLET 1000 MG PO (13:01)
--- NOTE | 2023-10-23 13:04 | WPDANESEPPF ---
Anes - Initial Pre Proc Eval Procedure: Operation Date: 10/23/23 14:00 Proposed Procedures p Closed Reduction of Nasal Bone and Septal Fracture - Rico Upton MD Date/Time: 10/23/23 13:04 Surgeon: Rico Upton MD Pre Op Diagnosis: nasal fracture Patient Data Age: 68 Gender: F Height: 1.63 m Weight: 127.05 kg Allergies Allergy/AdvReac Type Severity Reaction Status Date / Time No Known Allergies Allergy Verified 10/19/23 09:21 Home Medications Medication Instructions Recorded Confirmed Type cetirizine 10 mg chewable tablet 10 mg PO DAILY 06/13/19 10/19/23 History fenofibrate micronized 134 mg 134 mg PO DAILY 06/13/19 10/19/23 History capsule krill oil 500 mg capsule 500 mg PO DAILY 06/13/19 10/19/23 History multivitamin with minerals 1 cap PO DAILY 06/13/19 10/19/23 History acetaminophen 650 mg 650 mg PO Q12H 07/22/20 10/19/23 History tablet,extended release (Tylenol Arthritis Pain) buspirone 7.5 mg tablet 15 mg PO BID 07/22/20 10/19/23 History clobetasol 0.05 % topical cream 1 applic topical DAILY 07/22/20 10/19/23 History duloxetine 60 mg capsule,delayed 60 mg PO DAILY 07/22/20 10/19/23 History release metformin 500 mg tablet 1,000 mg PO DAILY 07/22/20 10/19/23 History fluticasone propionate 50 2 spray intranasal DAILY 10/19/23 10/19/23 History mcg/actuation nasal spray,suspension (Flonase Allergy Relief) glipizide 10 mg tablet, extended 10 mg PO DAILY 10/19/23 10/19/23 History release 24 hr hydrochlorothiazide 25 mg tablet 25 mg PO DAILY 10/19/23 10/19/23 History levothyroxine 100 mcg tablet 100 mcg PO DAILY 10/19/23 10/19/23 History losartan 50 mg tablet 50 mg PO DAILY 10/19/23 10/19/23 History semaglutide 1 mg/dose (4 mg/3 mL) 1 mg subcut WEEKLY 10/19/23 10/19/23 History subcutaneous pen injector (Ozempic) Laboratory Tests 10/23/23 12:32 POC Capillary Glucose 105 mg/dl (65-105) Patient hx anesthesia problems: none Family hx anesthesia problems: none Results Review: All pre-operative results and documents have been reviewed as part of the pre-operative evaluation. [facility] Past Medical History Medical History Achilles tendinitis of right lower extremity Alcoholism Anxiety Arthritis BMI greater than 40 Carpal tunnel syndrome Depression Diabetes Type II Drug dependence Ear pain Hearing loss High blood pressure High cholesterol History of depression Hypothyroid IBS (irritable bowel syndrome) Left knee DJD Light headedness NIRANJAN (obstructive sleep apnea) Osteoarthritis Osteoporosis Polycythemia Posterior calcaneal exostosis Right knee DJD Sinus pain Sleep disorder Tooth disorder Urinary frequency UTI (urinary tract infection) Vision loss Wears glasses Weight gain Surgical History Surgical History History of 1979 History of carpal tunnel release bilateral, 1994 History of cholecystectomy 1998 History of ear surgery Ear drums, [id number] History of hysterectomy 2000 Family History Family History Other Arthritis Bladder incontinence Cancer Depression Diabetes mellitus Heart disease Hypertension Nerve disorder Social History Social History Smoking packs per day: 1.5 Smoking cigarettes per day: 30.0 Years smoked: 25 Smoking pack-years: 37.50 Smoking status: Former smoker Tobacco type: cigarettes Smoking end date: 06/26/97 Alcohol intake: never Alcohol use details: 2 per year Substance use: never Substance use type: does not use Living arrangements: with family Gender identity (if verbalized by the patient): Female Spiritual care concerns: No Anes - Eval Final PreProcedure Day of Procedure 10/23/23 13:04 Patient weight: morbidly obese H
[2023-10-23] MEDS: LACTATED RINGERS 1,000 ML 30 ML IV CONT (13:07)
--- NOTE | 2023-10-23 13:20 | WPDHPUPDATE1 ---
History and Physical Update Update Date/Time: 10/23/23 13:20 History and Physical has been reviewed, including an updated exam of the patient. There are NO changes in the patient's condition. Risks, benefits, and alternatives have been discussed and questions answered. Patient agrees to proceed with procedure.
[2023-10-23] MEDS: ceFAZolin 3 GM/D5W 100 ML 100 ML IVPB (13:45)
[2023-10-23] MEDS: LIDO 1%/EPINEPHRINE 1:100,000 50 ML VIAL INFILTRATE (13:52)
[2023-10-23 14:21] LABS: Glucose Point of Care 107 mg/dl (65-105)
--- NOTE | 2023-10-23 14:22 | P.OP_ITS ---
Procedure Note - Detailed Date of Procedure 10/23/23 Pre-op Diagnosis nasal fracture Post-op Diagnosis Same Procedure Performed Closed reduction nasal fracture and septal fracture Surgeon Rico Upton MD Anesthesia General Indications Nasal fracture, septal fracture Findings Left septal fracture, nasal bone fracture bilaterally. Nasal splint, no doyles needed. Description of Procedure On the date of the procedure, the patient was identified in the preoperative holding area. All questions were answered, consent was signed and verified and they were then brought to the OR and placed under general anesthesia via ETT. A timeout was performed verifying the correct patient identity and procedure to be performed which they were. The patient was prepped and draped for closed reduction of nasal bone fracture. The nasal bones were depressed and fractured bilaterally. Septum was fractured to the left. 1% lidocaine with 1:100,000 epinephrine was then infiltrated into the septum, turbinates, nasal dorsum via intercartilaginous injection and then bilateral infratrochlear nerve block performed. Afrin soaked cottonoids were placed bilaterally and allowed to sit for 5 minutes. Then, using a boise elevator to elevate the nasal bones, they were then reduced using digital manipulation externally combined with intranasal manipulation from the elevator. Several attempts made until satisfactory reduction of nasal bones. The appearance of the nasal bones were satisfactory. The nasal septum was pushed back to midline which was significantly straightened and remained so. Turbinates outfractured bilaterally. Afrin soaked cottonoids replaced for 5 minutes and hemostasis was obtained. Mastasol was applied to the skin, steri strips fashioned to cover the soft tissue envelope of the nose. A sara splint was then fashioned and placed over the nose. The cottonoids were removed. Care of the patient was returned to anesthesia who woke him up, removed the LMA and transferred them to PACU for r ecovery in stable condition without complication. Estimated Blood Loss 5 Drains No Packing No Pathology None sent Complications No immediate complications Condition Stable Disposition PACU
== END 2023-10-23 15:58 | disposition home or self-care (01) ==
PROVIDERS: PCP Physician Assistant; Visit Provider Otolaryngology
PROC: 0NSBXZZ Reposition Nasal Bone, External Approach (ICD-10-PCS; CPT 21315; principal; 2023-10-23 14:00)
DX: S02.2XXA Fracture of nasal bones, initial encounter for closed fracture (principal); I10 Essential (primary) hypertension; E11.9 Type 2 diabetes mellitus without complications; E78.00 Pure hypercholesterolemia, unspecified; F32.A Depression, unspecified; F41.9 Anxiety disorder, unspecified; E03.9 Hypothyroidism, unspecified; K58.9 Irritable bowel syndrome, unspecified; G47.33 Obstructive sleep apnea (adult) (pediatric); M81.0 Age-related osteoporosis without current pathological fracture; E66.01 Morbid (severe) obesity due to excess calories; Z68.42 Body mass index [BMI] 45.0-49.9, adult; Z79.84 Long term (current) use of oral hypoglycemic drugs; Z79.85 Long-term (current) use of injectable non-insulin antidiabetic drugs; Z98.890 Other specified postprocedural states; Z90.49 Acquired absence of other specified parts of digestive tract; Z87.891 Personal history of nicotine dependence; Z80.3 Family history of malignant neoplasm of breast; Z82.49 Family history of ischemic heart disease and other diseases of the circulatory system; W19.XXXA Unspecified fall, initial encounter
CPT/HCPCS: 21320; 82948; A9270; J0330; J0690; J1100; J2250; J2405; J2704; J3010; J7120

== ENCOUNTER 2024-02-23 14:55 | Outpatient (CLI) | payer MEDICARE, OTHER, SELFPAY ==
--- NOTE | ~2024-02-23 | MM_ITS ---
EXAMINATION: MM screening [facility] BI w anjum HISTORY: Screening TECHNIQUE: Craniocaudal and mediolateral oblique 3-D tomosynthesis images were obtained and synthetic 2-D images were generated. CAD analysis was submitted and interpreted. COMPARISON: Comparison to multiple prior studies sequentially, with oldest reviewed study dated 12/2018. BREAST PARENCHYMAL COMPOSITION: There are scattered areas of fibroglandular density. FINDINGS: There is no evidence of suspicious mass, calcification, or architectural distortion to sugg est malignancy in either breast. There has been no suspicious interval change. IMPRESSION: 1. No mammographic evidence of malignancy. 2. Recommend routine screening mammography in one year. BI-RADS Category 1: Negative Reviewed, dictated and finalized at location B.
== END 2024-02-23 14:56 | disposition home or self-care (01) ==
PROVIDERS: PCP Physician Assistant; Visit Provider Physician Assistant
DX: Z12.31 Encounter for screening mammogram for malignant neoplasm of breast (principal)
CPT/HCPCS: 77063; 77067

== ENCOUNTER 2024-03-28 08:49 | Emergency (ER) | payer MEDICARE, OTHER, SELFPAY ==
[2024-03-28 09:02] VITALS: BP 127/72; PULSE 65; RESP 20; TEMP 36.4; O2SAT 98
--- NOTE | 2024-03-28 09:09 | ED.URI ---
HPI - URI/Sore Throat General Chief Complaint: Skin/Abscess/Foreign Body Stated Complaint: sinus infection Time Seen by Provider: 03/28/24 09:10 Source: patient Mode of arrival: ambulatory Limitations: no limitations History of Present Illness HPI Narrative: Patient is a 61-year-old presents with 2 weeks sinus pressure, pain and congestion. Patient states prior to that she had 2 weeks of cold-like symptoms resolved. Patient then got flu shot. Denies any fever, chills, nausea vomiting, diarrhea sore throat, cough. Patient also report intermittent ear pain and pressure. Patient also complaining wound to back of head hairline she has had for past month. Patient states her CPAP rubs on is tender to touch. Related Data Home Medications Medication Instructions Recorded Confirmed cetirizine 10 mg chewable tablet 10 mg PO DAILY 06/13/19 03/28/24 fenofibrate micronized 134 mg 134 mg PO DAILY 06/13/19 03/28/24 capsule krill oil 500 mg capsule 500 mg PO DAILY 06/13/19 03/28/24 multivitamin with minerals 1 cap PO DAILY 06/13/19 03/28/24 acetaminophen 650 mg 650 mg PO Q12H 07/22/20 03/28/24 tablet,extended release (Tylenol Arthritis Pain) buspirone 7.5 mg tablet 15 mg PO BID 07/22/20 03/28/24 duloxetine 60 mg capsule,delayed 90 mg PO DAILY 07/22/20 03/28/24 release metformin 500 mg tablet 500 mg PO DAILY 07/22/20 03/28/24 fluticasone propionate 50 2 spray intranasal DAILY 10/19/23 03/28/24 mcg/actuation nasal spray,suspension (Flonase Allergy Relief) glipizide 10 mg tablet, extended 10 mg PO DAILY 10/19/23 03/28/24 release 24 hr hydrochlorothiazide 25 mg tablet 25 mg PO DAILY 10/19/23 03/28/24 levothyroxine 100 mcg tablet 100 mcg PO DAILY 10/19/23 03/28/24 losartan 50 mg tablet 50 mg PO DAILY 10/19/23 03/28/24 semaglutide 1 mg/dose (4 mg/3 mL) 2 mg subcut WEEKLY 10/19/23 03/28/24 subcutaneous pen injector (Ozempic) Allergies Allergy/AdvReac Type Severity Reaction Status Date / Time No Known Allergies Allergy Verified 03/28/24 09:17 Review of Systems Review of Systems: All systems reviewed & are unremarkable except as noted in HPI and below Constitutional: Constitutional: Denies body ache(s), Denies chills, Denies fatigue, Denies fever(s), Denies headache(s), Denies malaise and Denies weakness Eyes: Eyes: Denies blurry vision, Denies itchy eyes and Denies loss of vision ENT: Reports otalgia, Denies headache(s), Reports nasal congestion, Reports sinus pain, Reports sinus pressure and Denies sore throat Cardiovascular: Cardiovascular: Denies chest pain, Denies irregular heart rhythm and Denies dyspnea Respiratory: Respiratory: Reports cough and Denies dyspnea Gastrointestinal: Gastrointestinal: Denies abdominal pain, Denies diarrhea, Denies nausea and Denies vomiting Musculoskeletal: Musculoskeletal: Denies back pain, Denies myalgias and Denies arthralgias Integumentary/Breasts: Skin/Breast: Denies pruritus and Denies rash Neurologic: Denies headache(s), Denies loss of vision and Denies weakness Psychiatric: Psychiatric: Reports no additional psychiatric complaints Endocrine: Endocrine: Denies fatigue Allergic/Immunologic: Allergic/Immunologic: Denies itchy eyes PMFSH Past Medical History Medical History Achilles tendinitis of right lower extremity Alcoholism Anxiety Arthritis BMI greater than 40 Carpal tunnel syndrome Depression Diabetes Type II Drug dependence Ear pain Hearing loss High blood pressure High cholesterol History of depression Hypothyroid IBS (irritable bowel syndrome) Left knee DJD Light headedness NIRANJAN (obstructive sleep apnea) Osteoarthritis Osteoporosis Polycythemia Posterior calcaneal exostosis Right knee DJD Sinus pain Sleep disorder Tooth disorder Urinary frequency UTI (urinary tract infection) Vision loss Wears glasses Weight gain Surgical History Surgical History (Reviewed 03/28/24 @ 09:10
== END 2024-03-28 09:40 | disposition home or self-care (01) ==
PROVIDERS: Emergency Provider Nurse Practitioner Family; PCP Physician Assistant
DX: L73.9 Follicular disorder, unspecified (principal); J01.10 Acute frontal sinusitis, unspecified; Z87.891 Personal history of nicotine dependence; M19.90 Unspecified osteoarthritis, unspecified site; E11.9 Type 2 diabetes mellitus without complications; I10 Essential (primary) hypertension; E78.00 Pure hypercholesterolemia, unspecified; E03.9 Hypothyroidism, unspecified; M81.0 Age-related osteoporosis without current pathological fracture; M17.0 Bilateral primary osteoarthritis of knee; F41.9 Anxiety disorder, unspecified; F32.A Depression, unspecified; G47.30 Sleep apnea, unspecified
CPT/HCPCS: 99213; G0463

== ENCOUNTER 2024-06-16 11:33 | Emergency (ER) | payer MEDICARE, OTHER, SELFPAY ==
[2024-06-16 11:46] VITALS: BP 139/51; PULSE 63; RESP 18; TEMP 36.1; O2SAT 99
--- NOTE | 2024-06-16 12:21 | ED_ITS ---
HPI - URI/Sore Throat General Chief Complaint: Upper Respiratory Infection Stated Complaint: cold symptoms and ear clogging Time Seen by Provider: 06/16/24 12:21 Source: patient, RN notes reviewed and old records reviewed Mode of arrival: ambulatory Limitations: no limitations History of Present Illness HPI Narrative: 69 year old female who presents to [facility] with complaints of cold symptoms and bilateral ears feel clogged with decreased hearing and discomfort for the past 3 days. Patient also reports some sinus congestion and drainage, states some discomfort to right gums and palate states has been exposed to strep from grandson. Patient denies any acute cough denies any chest pain or any acute shortness of breath. Pateint reports chronic left ear infections since tube in ear fell out. states some drainage left ear. MD elicited complaint: rhinorrhea, nasal congestion and other (ears feel clogged) Pertinent past history: other (chronic ear problems) Onset (ago): day(s) (3) Pain scale (0-10): 4 Description of mucous: clear Able to tolerate fluids by mouth: Yes Treatments prior to arrival: acetaminophen and ibuprofen Related Data Home Medications ?Medication ?Instructions ?Recorded ?Confirmed ?Last Taken ?Type cetirizine 10 mg chewable tablet 10 mg PO DAILY 06/13/19 03/28/24 10/22/23 History fenofibrate micronized 134 mg 134 mg PO DAILY 06/13/19 03/28/24 10/22/23 History capsule krill oil 500 mg capsule 500 mg PO DAILY 06/13/19 03/28/24 3 Days Ago History ~10/20/23 multivitamin with minerals 1 cap PO DAILY 06/13/19 03/28/24 3 Days Ago History ~10/20/23 acetaminophen 650 mg 650 mg PO Q12H 07/22/20 03/28/24 10/22/23 History tablet,extended release (Tylenol Arthritis Pain) buspirone 7.5 mg tablet 15 mg PO BID 07/22/20 03/28/24 10/23/23 History duloxetine 60 mg capsule,delayed 90 mg PO DAILY 07/22/20 03/28/24 10/23/23 History release metformin 500 mg tablet 500 mg PO DAILY 07/22/20 03/28/24 10/22/23 History fluticasone propionate 50 2 spray intranasal DAILY 10/19/23 03/28/24 10/22/23 History mcg/actuation nasal spray,suspension (Flonase Allergy Relief) glipizide 10 mg tablet, extended 10 mg PO DAILY 10/19/23 03/28/24 10/22/23 History release 24 hr hydrochlorothiazide 25 mg tablet 25 mg PO DAILY 10/19/23 03/28/24 10/22/23 History levothyroxine 100 mcg tablet 100 mcg PO DAILY 10/19/23 03/28/24 10/23/23 History losartan 50 mg tablet 50 mg PO DAILY 10/19/23 03/28/24 10/22/23 History semaglutide 1 mg/dose (4 mg/3 mL) 2 mg subcut WEEKLY 10/19/23 03/28/24 10/21/23 History subcutaneous pen injector (Ozempic) clobetasol 0.05 % topical ointment topical 06/16/24 Unknown History Allergies Allergy/AdvReac Type Severity Reaction Status Date / Time No Known Allergies Allergy Verified 06/16/24 12:05 Review of Systems Review of Systems: CONSTITUTIONAL: Denies malaise, chills, sweats, or fever. EYES: Denies visual changes, redness, or discharge. ENT: Reports rhinorrhea, congestion, sinus pain,bilateral otalgia with decreased hearing, and sore throat. CARDIOVASCULAR: Denies chest pain, palpitations, or edema. RESPIRATORY: Reports cough.? Denies dyspnea. GASTROINTESTINAL: Denies abdominal pain, nausea, vomiting, diarrhea SKIN: Denies rash or itching. MUSCULOSKELETAL: Denies myalgia. NEUROLOGIC: Denies headache. All systems reviewed & are unremarkable except as noted in HPI and below PMFSH Past Medical History Medical History BMI greater than 40 Left knee DJD Right knee DJD Polycythemia UTI (urinary tract infection) Urinary frequency IBS (irritable bowel syndrome) Ear pain Wears glasses Light headedness Diabetes Type II NIRANJAN (obstructive sleep apnea) Posterior calcaneal exostosis Achilles tendinitis of right lower extremity Osteoporosis Alcoholism Depression Sinus pain Tooth disorder Weight gain Carpal tunnel syndrome Drug dependence Osteoarthritis Arthritis Sleep disorder History of depression Anxiety High cholesterol High blood pressure Hypothyroid Vision loss Hearing loss Surgical History Surgical History History of ear surgery Ear drums, [id number] History of hysterectomy 2000 History of cholecystectomy 1998 History of 1979 History of carpal tunnel release bilateral, 1994 Family History Family History Other Arthritis Bladder incontinence Cancer Depression Diabetes mellitus Heart disease Hypertension Nerve disorder Social History Social History Smoking packs per day: 1.5 Smoking cigarettes per day: 30.0 Years smoked: 25 Smoking pack-years: 37.50 Smoking status: Former smoker Tobacco type: cigarettes Smoking end date: 06/26/97 Alcohol intake: never Alcohol use details: 2 per year Substance use: never Substance use type: does not use Living arrangements: with family Gender identity (if verbalized by the patient): Female Spiritual care concerns: No Comments At time of signature, agree with nursing past medical, surgical, social and family history. There is no relevant family history pertinent to the presenting complaint Exam Narrative: GENERAL: Well-appearing, well-nourished, obese and in no acute distress. HEAD: Normocephalic EYES: PERRLA, conjunctivae clear ENT: Nares clear, turbinates edematous and erythematous, clear discharge. Mucous membranes moist. left TM red with purulent drainage, Right TM pearly alfredo with dull light reflex ; no tragal tenderness. Oropharynx erythematous without lesions. Tonsils not present and throat without exudate, no drooling, no hoarseness, no trismus, uvula midline.post nasal drainage NECK: Supple. No lymphadenopathy CHEST: Decreased breath sounds to auscultation, breath sounds equal. No wheezing, rhonchi, rales, or stridor. No respiratory distress, speaks in full sentences.no tachypnea, SAO2 99% on room air HEART: Regular rate and rhythm. No murmur heard. SKIN: Warm, dry, no rash. NEURO: Alert and oriented x3. PSYCH: Normal mood and affect Course Course Emergency Course: Patient is aware of diagnosis, understands and agrees to treatment plan.? Anticipatory guidance given.? Patient agrees to follow-up as directed and is aware of reasons to seek care at the emergency department. Portions of this record may have been created with voice recognition software Level of Care: [facility] Visit Vital Signs Vital signs: Vital Signs Temperature 36.1 C L 06/16/24 11:46 Pulse Rate 63 06/16/24 11:46 Respiratory Rate 18 06/16/24 11:46 Blood Pressure 139/51 L 06/16/24 11:46 Pulse Oximetry 99 06/16/24 11:46 Oxygen Delivery Room Air 06/16/24 11:46 Temperature 36.1 C L 06/16/24 11:46 Pulse Rate 63 06/16/24 11:46 Respiratory Rate 18 06/16/24 11:46 Blood Pressure 139/51 L 06/16/24 11:46 Pulse Oximetry 99 06/16/24 11:46 Oxygen Delivery Room Air 06/16/24 11:46 Reviewed MDM - URI/Sore Throat MDM Narrative Medical decision making narrative: Differential diagnosis considered: Welch virus, strep pharyngitis, allergic rhinitis, upper respiratory tract infection, sinusitis, rhinosinusitis, nasopharyngitis. viral pharyngitis, otitis media, otitis externa, pneumonia, bronchitis, viral cough syndrome, viral syndrome, and influenza.? Exam findings show no acute concerns or changes; patient is non-toxic appearing and is in no distress.? Patient is appropriate for outpatient treatment and follow-up. Differential Diagnosis Differential diagnosis: Likely upper respiratory infection, otitis media, viral infection and pharyngitis Medical Records Attestation: I reviewed the patient's medical records. Lab Data Attestation: I reviewed the patient's lab results. Critical Care Time Critical Care Time Critical Care Time: No Discharge Plan Discharge Clinical Impression: Acute left otitis media Patient Disposition: Home, Self-Care Condition: Stable Instructions: Antibiotic Form, Ear Infection (GEN) Additional Instructions: Increase fluids especially juices and water Sars-vrg-[id number] cough and cold medicine of your choice for your symptoms Zyrtec Claritin or Frahana daily may include Coricidin brand decongestant heat to the face 20-30 minutes 4-6 times a day for pain Salt water gargles, throat lozenges or throat sprays as desired Antibiotic as directed--finished the medication ear drops as prescribed If your symptoms persist, change or worsen significantly before you can contact your personal physician then please, without delay, go to the emergency department for further evaluation. Follow-up with PCP in 7-10 days or sooner if needed Follow up with PCP soon in regards to your blood pressure which is elevated above threshold for referral. Blood pressure above 120/80 may indicate pre- hypertension. 139/51 Tylenol or ibuprofen for any fever pain Patient Language: Micronesian Prescriptions: New ofloxacin 0.3 % drops 5 drp LEFT EAR BID 7 Days Qty: 10 0RF amoxicillin-pot clavulanate 875-125 mg tablet 1 tablet PO Q12H Qty: 20 0RF Rx Instructions: take all doses of this medication take with food recommend probiotics or eating activia yogurt while on this med No Action clobetasol 0.05 % ointment TOPICAL fenofibrate micronized 134 mg capsule 134 mg PO DAILY krill oil 500 mg capsule 500 mg PO DAILY multivitamin with minerals Capsule 1 cap PO DAILY cetirizine 10 mg tablet,chewable 10 mg PO DAILY metformin 500 mg tablet 500 mg PO DAILY duloxetine 60 mg capsule,delayed release(DR/EC) 90 mg PO DAILY Patient Comments: per patient home medication list 07/22/20 buspirone 7.5 mg tablet 15 mg PO BID acetaminophen [Tylenol Arthritis Pain] 650 mg tablet extended release 650 mg PO Q12H levothyroxine 100 mcg tablet 100 mcg PO DAILY Ozempic 1 mg/dose (4 mg/3 mL) pen injector 2 mg SUBCUT WEEKLY Patient Comments: TAKES ON FRIDAYS losartan 50 mg tablet 50 mg PO DAILY hydrochlorothiazide 25 mg tablet 25 mg PO DAILY glipizide 10 mg tablet extended release 24hr 10 mg PO DAILY fluticasone propionate [Flonase Allergy Relief] 50 mcg/actuation [place],Suspension 2 spray INTRANASAL DAILY Rx Instructions: administer into each nostril Follow-up/Referrals: Magdaleno,Franny Ulrich PA-C [Primary Care Provider] - Time of Disposition: 12:50 Quality [place] Scale Eyes: Open Verbal: Oriented and Alert Motor: Follows Commands [place] Total Score: 15
--- OUTSIDE RECORDS SUMMARY | 2024-06-23 15:08 | XMS_ITS | Continuity of Care Document ---
Author Name [facility] Organization [facility] Care Team Providers Care Hoist Cylinder Loader Name Role Phone [facility] Unavailable Unavailable Problems Combined list of problems from Department of [facility] and [facility] facilities. It does not include entries that were removed or entered in error. Problem Status Onset Date Problem Type Date of Resolution Comments Source Allergic Rhinitis ([facility] [id number]) Active Condition [facility] Anxiety ([facility] [id number]) Active Condition [facility] Depression ([facility] [id number]) Active Condition [facility] Diabetes Mellitus Type 2 ([facility] [id number]) Active Condition [facility] HTN - Hypertension ([facility] [id number]) Active Condition [facility] Hyperlipidemia ([facility] [id number]) Active Condition [facility] Hypothyroidism ([facility] [id number]) Active Condition [facility] Pain of right knee Active Condition [facility] Pes planus Active Condition [facility] surgeries Active Condition May 23 Entered By: ALYSSA HILARIO Comment: neck surgery C 2-3-4May 23, 2022 Entered By: ALYSSA HILARIO Comment: total hysterectomy 2021 Entered By: ALYSSA HILARIO Comment: cholecstectomy 2021 Entered By: ALYSSA HILARIO Comment: tonsillectomy-198 2021 Entered By: ALYSSA HILARIO Comment: Carpel tunnel b/l [facility] UI - Urinary incontinence Active Condition May 23, 2022 Entered By: ALYSSA HILARIO Comment: history of sleeve surgery [facility] Medications Combined list of outpatient medications from Department of [facility] and [facility] facilities.Medications provided include 1) outpatient medications from the last 15 months, and 2) patient-reported medications. Medication Details Route Status Patient Instructions Prescription Expires Prescription Number Last Dispense Date Ordering Provider Order Date Order Qty Source ACETAMINOPH EN 500MG TAB TAKE ONE TABLET BY MOUTH FOUR TIMES A DAY NEEDED ORAL ACTIVE HECTOR HILARIO A 2021 [facility] BUSPIRONE HCL 10MG TAB TAKE ONE TABLET BY MOUTH TWICE A DAY ORAL ACTIVE HECTOR HILARIO A 2021 [facility] CETIRIZINE HCL 10MG TAB TAKE ONE TABLET BY MOUTH ONCE A DAY ORAL ACTIVE HECTOR HILARIO A 2021 [facility] CLOBETASOL PROPIONATE 0.05% OINT,TOP APPLY LIGHTLY TO AFFECTED AREA(S) TWICE A DAY NEEDED [place] ACTIVE HECTOR HILARIO A 2021 [facility] CYCLOBENZAP RINE HCL 10MG TAB TAKE ONE TABLET BY MOUTH THREE TIMES A DAY NEEDED ORAL ACTIVE HECTOR HILARIO A 2022 [facility] DULOXETINE HCL 60MG CAP,EC TAKE 1 CAPSULE BY MOUTH ONCE A DAY ORAL ACTIVE HECTOR HILARIO A 2021 [facility] FENOFIBRATE 67MG CAP TAKE 2 CAPSULES BY MOUTH ONCE A DAY ORAL ACTIVE HECTOR HILARIO A 2021 [facility] FISH OIL 1000MG (500MG DHA/EPA) CAP,ORAL TAKE 1 CAPSULE BY MOUTH ONCE A DAY ORAL ACTIVE HECTOR HILARIO A 2021 [facility] FLUTICASONE PROPIONATE 50MCG/SPRAY SOLN,NASAL, 16GM INSTILL 1 SPRAY IN NOSTRIL( S) ONCE A DAY NEEDED NASAL ACTIVE HECTOR HILARIO A 2021 [facility] GLIPIZIDE 10MG TAB,SA TAKE ONE TABLET BY MOUTH EVERY MORNING ORAL ACTIVE HECTOR HILARIO A 2021 [facility] GLUCOSAMINE CAP/TAB TAKE BY MOUTH ONCE A DAY ORAL ACTIVE HECTOR HILARIO A 2021 [facility] HYDROCHLORO THIAZIDE 25MG TAB TAKE ONE TABLET BY MOUTH ONCE A DAY ORAL ACTIVE HECTOR HILARIO A 2021 [facility] LEVOTHYROXI NE NA 100MCG TAB (SYNTHROID) TAKE ONE TABLET BY MOUTH EVERY MORNING BEFORE A MEAL ORAL ACTIVE HECTOR HILARIO A 2021 [facility] METFORMIN HCL 500MG 24HR TAB,SA TAKE TWO TABLETS BY MOUTH ONCE A DAY ORAL ACTIVE HECTOR HILARIOA A 2021 [facility] MULTIVITAMI NS CAP/TAB TAKE ONE TABLET BY MOUTH ONCE A DAY ORAL ACTIVE HECTOR HILARIO A 2021 [facility] NYSTATIN [id number] PWDR,TOP APPLY LIGHTLY TO AFFECTED AREA(S) THREE TIMES A DAY [place] L ACTIVE HECTOR HILARIO A 2021 [facility] Allergies, Adverse Reactions, Alerts Combined list of allergies from Department of Defense and [facility] facilities. It does not include entries that were removed or entered in error. Substance Category Reaction Severity Reaction type Status Date Reported Comments Source DUST MITE FECES Propensity to adverse reaction (finding) Rhinitis active [address] [place] [address] MOLD Propensity to adverse reaction (finding) Rhinitis active [address] [place] [address] POLLEN Propensity to adverse reaction (finding) Rhinitis active [address] [place] [address] Social History Combined list of available smoking, tobacco, and other social history from [facility] facilities. Social History Type Response Date Comment Sourc e Tobacco smoking status [facility]IS [facility] FORMER USER 05/18/2022 [facility] of [facility]
--- OUTSIDE RECORDS SUMMARY | 2024-06-23 15:08 | XMS_ITS | Patient Health Summary ---
Author Organization [facility] Address [address] [place] [address] Care Team Providers Care Formula Mixer Name Role Phone Alex Browne MD Primary Care Provider Unav ailable Note from [facility],non-owned Affiliates and Associated Physician Practices is amultiple site organization consisting of ambulatory clinics and hospital sitesin [place], [place], [place] and [place]. This disclosure is being madepursuant to the Care Everywhere program and may not contain all information available regarding this patient. Last updated 18.[facility] Allergies * Levofloxacin(Other) Medications * Be aware that medications may not be up to date on this document. Alwaysverify current medications with the patient. * hydrochlorothiazide (MICROZIDE) 12.5 MG capsule Take 12.5 mg by mouth once daily. * levothyroxine (SYNTHROID) 75 MCG tablet Take 75 mcg by mouth daily before breakfast. * fenofibrate micronized (LOFIBRA) 134 MG capsule Take 134 mg by mouth once daily. Take with largest meal of the day. * fexofenadine (ALFRED) 180 MG tablet Take 180 mg by mouth once daily. * citalopram (CELEXA) 20 MG tablet Take 20 mg by mouth once daily. * citalopram (CELEXA) 10 MG tablet Take 10 mg by mouth once daily. * omeprazole (PRILOSEC) 20 MG capsule Take 20 mg by mouth daily before breakfast. * oxyCODONE-acetaminophen (PERCOCET) 5-325 MG tablet(Started 09/23/2013) Take 1 Tab by mouth every 6 hours as needed for Pain. * ibuprofen (MOTRIN) 600 MG tablet(Started 09/23/2013) Take 1 Tab by mouth every 6 hours as needed for Pain. Social History Tobacco Use Types Packs/Day Years Used Date Smoking Tobacco: Never Smokeless Tobacco: Never Alcohol Use Standard Drinks/Week Comments No 0 (1 standard drink = 0.6 oz pur e alcohol) Sex and Gender Information Value Date Recorded Sex Assigned at Not on file Gender Identity Not on file Sexual Orientation Not on file Last Filed Vital Signs Vital Sign Reading Time Taken Comments Blood Pressure 130/80 10/08/2013 11:15 AM CDT Pulse 60 09/23/2013 2:15 PM CDT Temperature 36.3 ??C (97.4 ??F) 09/23/2013 1:32 PM CD T Respiratory Rate 16 09/23/2013 2:15 PM CDT Oxygen Saturation 97% 09/23/2013 2:15 PM CDT Inhaled Oxygen Concentration - - Weight 116.1 kg (256 lb) 10/08/2013 11:15 AM CDT Height 162.6 cm (5' 4 ) 10/08/2013 11:15 AM CDT Body Mass Index 43.94 10/08/2013 11:15 AM CDT Medical Devices Implanted Type Area Appliance Technician Device Identifier Shelf Expiration Date Model / Serial / Lot Slng Walnut Subfascial Implanted:Qty: 1 on 09/23/2013 by Briseyda Brown MD at [facility] N/A: Vagina [employer] Systems 06/07/2016 [id number] / / [id number] Description:Implanted mid-ur ethral Procedures * PATHOLOGY TISSUE EXAM (STL)(Performed 09/23/2013) Performed for Female stress incontinence * BIOPSY VULVA(Performed 09/23/2013) Performed for Female stress incontinence, Acute lymphadenitis * CYSTOSCOPY (FLEXIBLE/RIGID)(Performed 09/23/2013) Performed for Female stress incontinence, Acute lymphadenitis * SLING OPERATION TRANSOBTURATOR(Performed 09/23/2013) Performed for Female stress incontinence, Acute lymphadenitis * BASIC METABOLIC PANEL (CALCIUM TOTAL)(Performed 09/23/2013) Performed for Preop examination * PATHOLOGY/GENETICS HISTORICAL-ONBASE(Performed 09/23/2013) * CBC W AUTO DIFFERENTIAL(Performed 09/03/2013) Performed for Female stress incontinence, Lichenification And Lichen Simplex Chronicus * XR CHEST 2VW(Performed 09/03/2013) Performed for Female stress incontinence * URINALYSIS - POINT OF CARE (AMB) [facility](Performed 09/03/2013) * LAB HISTORICAL RESULTS-ONBASE(Performed 09/03/2013) * CULTURE URINE COMPREHENSIVE(Performed 09/03/2013) * URINALYSIS - POINT OF CARE (AMB) [facility](Performed 08/28/2013) Results * GROSS + MICRO EXAM (STL) (09/23/2013 11:35 AM CDT) Case Report Surgical Pathology Report ? Case: [id number] ? -- Authorizing Provider: ??Briseyda Brown MD ?Ordering Provider: ?? Briseyda Brown MD ? Ordering Location: ? [facility] ? Collected: ? 09/23/2013 11:35 AM ? Pathologist: ? Yue Willard MD ? Received: ?09/23/2013 12:24 PM ?Signed Out: ?09/24/2013 ??1:38 PM (Final) ? Specimen: ?Labia Biopsy ? 09/24/2013 1:38 PM CDT [facility] Final Diagnosis 1. ??Vulva, biopsy: -- ??Lichen sclerosis et atrophicus -- ??Negative for dysplasia /elder 09/24/2013 1:38 PM T [facility] Gross Description Submitted fixed in formalin in one container labeled with the patient's name, Kristal Bustos, and vulva biopsy are two soft, yellow-mullen tissue fragments each measuring 0.4 cm in greatest dimension. The specimen is submitted in toto as A1. JULIANA/andrew 09/24/2013 1:38 PM CDT [facility] Microscopic Description Microscopic examination reveals vulvar tissue surfaced by stratified squamous mucosa that is atrophic and free of cytologic atypia or dysplasia. ??The underlying tissue shows hyalinization and homogenization ??with a mild chronic inflammatory infiltrate noted. 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 ??There is no evidence of granulomata or neoplasia. /alj 09/24/2013 1:38 PM CDT [facility] Synoptic Report 09/24/2013 1:38 PM CDT [facility] Pathology/Cytolo gy BIOPSY SPECIMEN / Unknown 09/23/2013 11:35 AM CDT 09/23/2013 12:24 PM CDT Briseyda Brown MD LAB - PATHOLOGY/CYTO LOGY ORDERABLES [facility] [address] [place] [address] * (ABNORMAL) BASIC METABOLIC PANEL (CALCIUM TOTAL) (09/23/2013 9:35 AM CDT) Glucose 97 74 - 106 mg/dL 09/23/2013 10:45 AM CDT [facility] Sodium 140 136 - 145 mmol/L 09/23/2013 10:45 AM CDT [facility] Potassium 3.7 3.5 - 5.1 mmol/L 09/23/2013 10:45 AM CDT [facility] Chloride 108(H) 98 - 107 mmol/L 09/23/2013 10:45 AM CDT [facility] CO2 27 22 - 31 mmol/L 09/23/2013 10:45 AM CDT [facility] Calcium 9.2 8.5 - 10.1 mg/dL 09/23/2013 10:45 AM CDT [facility] Anion Gap 5 5 - 15 mmol/L 09/23/2013 10:45 AM CDT [facility] BUN 20 7 - 21 mg/dL 09/23/2013 10:45 AM CDT [facility] Creatinine 0.63 0.50 - 1.30 mg/dL 09/23/2013 10:45 AM CDT [facility] eGFR by MDRD >60 >60 mL/min/1.7 3m2 09/23/2013 10:45 AM CDT [facility] eGFR by MDRD >60 >60 mL/min/1.7 3m2 09/23/2013 10:45 AM CDT [facility] Blood BLOOD SPECIMEN / Unknown Venipuncture / Unknown 09/23/2013 9:35 AM CDT 09/23/2013 10:05 AM CDT Lloyd Alexander DO LAB - CHEMISTRY BRYCE ROSAS [facility] [address] [place] [address] * PATHOLOGY/GENETICS HISTORICAL-ONBASE (09/23/2013) 09/23/2013 Narrative [facility] - 09/25/2013 9:00 AM CDT Historical Provider LAB - CHEMISTRY O RDERABLES [facility] [address] * (ABNORMAL) CBC W AUTO DIFFERENTIAL (09/03/2013 11:26 AM CDT) WBC 6.2 4.4 - 10.7 x10^9/L 09/03/2013 12:06 PM CDT [facility] RBC 5.30(H) 3.80 - 5.20 x10^12/L 09/03/2013 12:06 PM CDT [facility] Hemoglobin 15.8(H) 12.0 - 15.6 gm/dL 09/03/2013 12:06 PM CDT [facility] Hematocrit 46.5(H) 35.9 - 45.5 % 09/03/2013 12:06 PM CDT [facility] MCV 87.7 80.7 - 98.3 fl 09/03/2013 12:06 PM CDT [facility] MCH 29.8 26.7 - 34.0 pg 09/03/2013 12:06 PM CDT [facility] MCHC 34.0 30.8 - 35.9 gm/dL 09/03/2013 12:06 PM CDT [facility] Platelet Count 282 153 - 416 x10^9/L 09/03/2013 12:06 PM CDT [facility] RDW-CV 13.2 12.1 - 14.9 % 09/03/2013 12:06 PM CDT [facility] MPV 10.0 9.4 - 12.9 fl 09/03/2013 12:06 PM CDT [facility] Neutrophils % 58.1 44.0 - 73.0 % 09/03/2013 12:06 PM CDT [facility] Lymphocytes % 28.2 20.0 - 43.0 % 09/03/2013 12:06 PM CDT [facility] Monocytes % 10.9 5.0 - 13.0 % 09/03/2013 12:06 PM CDT [facility] Eosinophils % 1.8 0.0 - 6.0 % 09/03/2013 12:06 PM CDT [facility] Basophils % 0.5 0.0 - 2.0 % 09/03/2013 12:06 PM CDT [facility] Immature Granulocytes 0.5 0 - 1 % 09/03/2013 12:06 PM CDT [facility] Neutrophil Absolute 3.58 2.01 - 7.14 x10^9/L 09/03/2013 12:06 PM CDT [facility] Lymphocytes Absolute 1.74 1.07 - 3.94 x10^9/L 09/03/2013 12:06 PM CDT [facility] Monocytes Absolute 0.67 0.26 - 1.07 x10^9/L 09/03/2013 12:06 PM CDT [facility] Eosinophils Absolute 0.11 0 - 0.47 x10^9/L 09/03/2013 12:06 PM CDT [facility] Basophils Absolute 0.03 0 - 0.08 x10^9/L 09/03/2013 12:06 PM CDT [facility] Immature Granulocytes Absolute 0.03 0.00 - 0.06 x10^9/L 09/03/2013 12:06 PM CDT [facility] nRBC Auto 0 /100 WBC 09/03/2013 12:06 PM CDT [facility] Blood BLOOD SPECIMEN / Unknown Venipuncture / Unknown 09/03/2013 11:26 AM CDT 09/03/2013 11:42 AM CDT Briseyda Brown MD LAB - HEMATOLOGY ORD ERABLES Performing Organization Address [facility]/State/[facility] Co de Phone Number [facility] [address] [place] [address] * XR CHEST PA AND LATERAL ROUTINE CHEST (09/03/2013 11:10 AM CDT) Anatomical Region Laterality Modality Chest Radiographic Liz ging 09/03/2013 11:0 9 AM CDT Impressions 09/03/2013 11:10 AM CDT Clear lungs. Narrative 09/03/2013 11:10 AM CDT Chest x-ray 2 views. History: Cough. 2 views of the chest show normal heart size with normal vessels. Lungs are clear. Procedure Note Moy Rey MD - 09/03/2013 Chest x-ray 2 views. History: Cough. 2 views of the chest show normal heart size with normal vessels. Lungs are clear. IMPRESSION Clear lungs. Briseyda Brown MD DIAGNOSTIC IMAGING O RDERABLES * LAB HISTORICAL RESULTS-ONBASE (09/03/2013) 09/03/2013 [facility] - 09/04/2013 10:30 AM CDT Historical Provider LAB - CHEMISTRY O RDERABLES Performing Organization Address [facility] Co de Phone Number [facility] [address] * URINALYSIS - POINT OF CARE (AMB) [facility] (09/03/2013) Only the most recent of2 resultswithin the time period is included. Glucose UA [facility] Bilirubin UA PO[facility] Ketones UA [facility] Specific [place] UA [facility] Blood Urine POCT [facility] pH UA [facility] Protein [facility]A [facility] Urobilinogen UA [facility] Nitrite UA [facility] WBC UA [facility] Urine specimen (specimen) 09/03/2013 Narrative [facility] - 09/03/2013 PVR approx 10 cc's dip positive for leukocytes ( mod amount ) culture sent Briseyda Brown MD LAB - POINT OF CARE ORDERABLES Performing Organization Address [facility]/ZIP Co de Phone Number [facility] * CULTURE URINE COMPREHENSIVE (09/03/2013 12:00 AM CDT) Culture Urine Comprehensive Final report [facility] ([employer]) Result 1 Escherichia coli [facility] ([place]) Comment:1,000 Colonies/mL Antimicrobial Susceptibility [facility] ([employer]) Comment: ?? S = Susceptible; I = Intermediate; R = Resistant ? P = Positive; N = Negative ?MICS are expressed in micrograms per mL ?? Antibiotic ? RSLT#1 ?RSLT#2 ?RSLT#3 ?RSLT#4 Amoxicillin/Clavulanic Acid ?S<=2 Ampicillin ? S =4 Cefepime ? S<=1 Ceftriaxone ?S<=1 Cefuroxime ? S =4 Cephalothin ?I =16 Ciprofloxacin ?S<=0.25 Ertapenem ?S<=0.5 Gentamicin ? S<=1 Imipenem ? S<=1 Levofloxacin ? S<=0.12 Nitrofurantoin ? S<=16 Piperacillin ? S<=4 Tetracycline ? S<=1 Tobramycin ? S<=1 Trimethoprim/Sulfa ? S<=20 Urine specimen (specimen) 09/03/2013 09/03/2013 5:07 PM CDT Narrative [facility] ([facility]) - 09/05/2013 3:21 PM CDT From a straight cath Performed at: ??01 - [facility] [place] [id number] [facility], [place], [place] ??[id number] Buyer Assistant: Jose M Armas MD, Phone: ??[phone] Briseyda Brown MD LAB - MICROBIOLOGY O RDERABLES [facility] ([facility]) Care Teams Formula Mixer Relationship Specialty Start Date End Date Alex Browne MD PCP - General Family Medicine 09/03/13
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
--- OUTSIDE RECORDS SUMMARY | 2024-06-23 15:08 | XMS_ITS | Encounter Summary ---
Author Organization [facility] Address [address] [place] [address] Care Team Providers Care Women'S Garment Fitter Name Role Phone Alex Browne MD Primary Care Provider Unav ailable Reason for Visit * Auth/Cert - Closed Specialty Diagnoses / Procedures Referred By Michelle lozano Referred To Contact Diagnoses Female stress incontinence Acute lymphadenitis Procedures SLING OPERATION TRANSOBTURATOR CYSTOSCOPY Referral ID Status Reason Start Date Expiration Date Visits Re quested Visits Authorized [id number] Closed 1 1 Encounter Details Date Type Department Care Team (Late st Contact Info) Description 09/23/2013 10:40 AM CDT Anesthesia Event [facility] [address] [place] [address] Lloyd Alexander, DO [address] [facility] [address] Sarai Castellanos MD [address] [place] [address] Anesthesia Record Procedure Summary Procedure Name Responsible Anesthesiologist Anesthesia Start Time Anesthesia Stop Time SLING OPERATION TRANSOBTURATOR (Vagina ) Lloyd Alexander DO 09/23/13 1040 09/23/13 1157 Events Date Time Event Comment 09/23/2013 1023 1040 An Start 1040 An Start Data 1045 An Induction 1046 LMA 1146 AN LMA REMOVE 1148 an stop data 1148 Elect Sign The providers l isted as staff are the responsible providers for the case. 1149 ANPTO2 1157 An Stop Meds Name Total midazolam 1 mg/mL injection 2 mg fentaNYL injection 150 mcg lidocaine 2% injection 50 mg propofol (DIPRIVAN) injection 150 mg ondansetron injection 4 mg ketorolac (TORADOL) 30 mg/ml injection 3 0 mg ceFAZolin (ANCEF) IVPB 2 g 2 g dexamethasone (DECADRON) 4 mg/ml injecti on 4 mg atropine 0.4 mg/ml injection 0.4 mg scopolamine (TRANSDERM-SCOP) 1.5 MG patc h 1.5 mg 1.5 patch indigotindisulfonate (INDIGO CARMINE) 8 mg/ml injection 5 mL lactated ringers infusion 900 mL * Agents Name Insp. N2O Exp. Sevoflurane O2 Air Insp. Sevoflurane * Blood No blood administrations on file. Lines, Drains, and Airways Type Details Placement Removal Urethral Catheter 09/23/13; Surgery; General Anesthesia, Sedated 09/23/13 0000 by Osmany Angel RN Peripheral IV Date: 09/23/13; Time : 939; Orientation: Right; Placed By: Alex Connor RN; Tolerance: Well 09/23/13 0940 by Salud Lancaster RN 09/23/13 1440 by Tammy Connor RN LMA juan diego; Standard IV ; easy with oral airway mask; LMA; 4.0; CO2 Monitor, Bilateral breath sounds, Chest Auscultation; 09/23/13; 1146; juan [place]go 09/23/13 1050 by 09/23/13 1146 by Juan Dumont APRN-TAVIA RETIRED Procedural Site 09/23/13; 1056; Perineum; Other (Comment) (2 trocar sites); 09/23/13; 213009/23/13 1056 by Stella Kline RN 09/23/13 2131 by Generic, Auto Release documented in this encounter Social History Tobacco Use Types Packs/Day Years Used Date Smoking Tobacco: Never Smokeless Tobacco: Never Alcohol Use Standard Drinks/Week Comments No 0 (1 standard drink = 0.6 oz pur e alcohol) Sex and Gender Information Value Date Recorded Sex Assigned at Not on file Gender Identity Not on file Sexual Orientation Not on file documented as of this encounter Progress Notes * Lloyd Alexander DO - 09/23/2013 2:30 PM CDT ANESTHESIA POSTPROCEDURE EVALUATION Kristal Bustos is a 58 y.o. female Temp: 36.3 ??C Pulse: 60 Resp: 16 BP: 121/56 mmHg SpO2: 97 % Pain Rating Score #: 0 A postop evaluation was performed on this patient with the following assessment: no apparent anesthesia complications Mental status: sufficiently recovered from acute administration of anesthesia to participate in theevaluation and neurologic status has returned to expected level of consciousness. Level of consciousness: awake General appearance: in no acute distress Respiratory function: natural airway. Cardiac: stable Pain: comfortable/acceptable PONV: None Postop hydration: adequate. Final anesthesia type: general Patient may be released from anesthesia care. documented in this encounter Consult Notes * Alina Mccarthy APRN-SCHOOL LUNCH MANAGER - 09/23/2013 10:03 AM CDT Pre-anesthesia Evaluation Procedure(s) (LRB): SLING OPERATION TRANSOBTURATOR (N/A) CYSTOSCOPY () Vital Signs: Temp: [36.6 ??C] Pulse: [51] Resp: [16] BP: (135)/(68) SpO2: [97 %] BMI: Estimated Body mass index is 43.75 kg/(m^2) as calculated from the following: Height as of an earlier encounter on 09/23/13: 5' 4 (1.626 m). Weight as of an earlier encounter on 09/23/13: 255 lb(115.667 kg). History: Past Medical History Diagnosis Date ??? Arthritis ??? Depression ??? Heartburn ??? Cataract ??? HTN (hypertension) ??? Thyroid disease Past Surgical History Procedure Date ??? section ??? Tonsillectomy and adenoidectomy ??? Hysterectomy, total abdominal ??? Salpingo-oophorectomy ??? Cholecystectomy, laparoscopic reports that she has never smoked. She has never used smokeless tobacco. She reports that she does not drink alcohol or use illicit drugs. Allergies: is allergic to levaquin. Medications: Prescriptions prior to admission Medication Sig Dispense Refill ??? hydrochlorothiazide (MICROZIDE) 12.5 MG capsule Take 12.5 mg by mouth once daily. ??? levothyroxine (SYNTHROID) 75 MCG tablet Take 75 mcg by mouth daily before breakfast. ??? fenofibrate micronized (LOFIBRA) 134 MG capsule Take 134 mg by mouth once daily. Take with largest meal of the day. ??? fexofenadine (ALFRED) 180 MG tablet Take 180 mg by mouth once daily. ??? citalopram (CELEXA) 20 MG tablet Take 20 mg by mouth once daily. ??? citalopram (CELEXA) 10 MG tablet Take 10 mg by mouth once daily. ??? omeprazole (PRILOSEC) 20 MG capsule Take 20 mg by mouth daily before breakfast. No current facility-administered medications for this visit. No current outpatient prescriptions on file. Facility-Administered Medications Ordered in Other Visits: lactated ringers infusion, , Intravenous, pre-OP continuous, Sarai Castellanos MD, Last Rate: 20 mL/hr at 09/23/13 0940, 20 mL/hr at 09/23/13 0940; ceFAZolin (ANCEF) IVPB 2 g, 2 g, Intravenous, pre-OP once, Briseyda Brown MD Physical Exam: NPO status: no solids since midnight and no liquids within 2 hours Oriented to person, place and time Airway: II TM distance: >3 FB Mouth opening: >2.5 FB Neck ROM: full Dental exam findings: normal/ok Pulmonary exam: breath sounds CTA Heart sounds: S1 S2 Negative for anesthesia complications Reviewed labs Plan for Anesthesia: ASA Score: 2. Anesthesia plan: general Planned method of induction: intravenous Planned postop destination: PACU Anesthesia plan, risks and benefits discussed with patient Anesthesia consent: obtained Discussed anesthesia plan with: anesthesiologist. No results found for this basename: SODIUM:3,POTASSIUM:3,CHLORIDE:3,CO2:3,BUN:3,CREATININE:3,GLUCOSE:3,CALCIUM:3 in the last 29887 hours Component Name 09/03/13 1126 WBC 6.2 RBC 5.30* HGB 15.8* HCT 46.5* MCV 87.7 MCHC 34.0 RDW -- RDWCV 13.2 PLTCOUNT 282 NEUTPCT 58.1 LYMPHPCT 28.2 MONOCYTPCT 10.9 EOSINPCT 1.8 BASOPHILPCT 0.5 GRANSIMMPCT 0.5 LYMPHABS 1.74 MONOCYTABS 0.67 EOSINABS 0.11 BASOABS 0.03 IMMGRANSABS 0.03 NRBCAUTO 0 documented in this encounter Plan of Treatment Not on file documented as of this encounter Visit Diagnoses Not on filedocumented in this encounter Administered Medications Inactive Administered Medications - up to 3 most recent administrations Medication Order MAR Action Action Date Dose Rate Site atropine injection PRN, Other, Starting on Mon09/23/13 at 1104, Until Mon09/23/13 at 1157, Anesthesia Intra-op $ Given 09/23/2013 11:04 AM CDT 0.4 mg ceFAZolin (ANCEF) IVPB 2 g 2 g, at 100 mL/hr, Intravenous, PRE-OP ONCE, 1 dose, Before reconstitution, protect from light, Pre-op $ Given 09/23/2013 10:47 AM CDT 2 g dexamethasone (DECADRON) injection PRN, Nausea/Vomiting, Starting on Mon09/23/13 at 1054, Until Mon09/23/13 at 1157, Anesthesia Intra-op $ Given 09/23/2013 10:54 AM CDT 4 mg fentaNYL (SUBLIMAZE) injection PRN, Starting on Mon09/23/13 at 1050, Until Mon09/23/13 at 1157, Anesthesia Intra-op $ Given 09/23/2013 11:43 AM CDT 50 mcg $ Given 09/23/2013 11:02 AM CDT 50 mcg $ Given 09/23/2013 10:50 AM CDT 50 mcg indigotindisulfonate (INDIGO CARMINE) injection PRN, Starting on Mon09/23/13 at 1123, Until Mon09/23/13 at 1157, Anesthesia Intra-op $ Given 09/23/2013 11:23 AM CDT 5 mL ketorolac (TORADOL) injection PRN, Starting on Mon09/23/13 at 1134, Until Mon09/23/13 at 1157, Anesthesia Intra-op $ Given 09/23/2013 11:34 AM CDT 30 mg lidocaine (XYLOCAINE) 2 % injection PRN, Starting on Mon09/23/13 at 1045, Until Mon09/23/13 at 1157, Anesthesia Intra-op $ Given 09/23/2013 10:45 AM CDT 50 mg midazolam (VERSED) injection PRN, Starting on Mon09/23/13 at 1039, Until Mon09/23/13 at 1157, Anesthesia Intra-op $ Given 09/23/2013 10:39 AM CDT 2 mg ondansetron (ZOFRAN) injection PRN, Nausea/Vomiting, Starting on Mon09/23/13 at 1124, Until Mon09/23/13 at 1157, Anesthesia Intra-op $ Given 09/23/2013 11:24 AM CDT 4 mg propofol (DIPRIVAN) injection PRN, Starting on Mon09/23/13 at 1045, Until Mon09/23/13 at 1157, Anesthesia Intra-op $ Given 09/23/2013 10:45 AM CDT 150 mg scopolamine (TRANSDERM-SCOP) 1.5 MG patch 1.5 mg 1.5 mg, Administer over 72 Hours, PRE-OP ONCE, 1 dose, Apply patch behind the ear, do not cut patch, only 1 patch should be worn at a time and remove old patch before applying new patch.This patch may contain metal and is not compatible with MRI. Notify radiology of patch location upon arrival to MRI. $ Given 09/23/2013 10:39 AM CDT 1.5 patches documented in this encounter Care Teams Women'S Garment Fitter Relationship Specialty Start Date End Date Alex Browne MD PCP - General Family Medicine 09/03/13 documented as of this encounter
--- OUTSIDE RECORDS SUMMARY | 2024-06-23 15:08 | XMS_ITS | Referral Summary ---
Author Organization [facility] Address [address] [place] [address] [place] [address] Care Team Providers Care Merchandising Execution Manager Name Role Phone Alex Browne MD Primary Care Provider Unav ailable Source Comments [facility],non-owned Affiliates and Associated Physician Practices is amultiple site organization consisting of ambulatory clinics and hospital sitesin [place], [place], [place] and [place]. This disclosure is being madepursuant to the Care Everywhere program and may not contain all information available regarding this patient. Last updated 18.[facility] Allergies Active Allergy Reactions Criticality Noted Date Comments Levofloxacin Other 09/23/2013 Makes her anxious Medications * Be aware that medications may not be up to date on this document. Alwaysverify current medications with the patient. Medication Sig Dispensed Refills Start Date End Date Status hydrochlorothiazide (MICROZIDE) 12.5 MG capsule Take 12.5 mg by mouth once daily. Active levothyroxine (SYNTHROID) 75 MCG tablet Take 75 mcg by mouth daily before breakfast. Active fenofibrate micronized (LOFIBRA) 134 MG capsule Take 134 mg by mouth once daily. Take with largest meal of the day. Active fexofenadine (ALFRED) 180 MG tablet Take 180 mg by mouth once daily. Active citalopram (CELEXA) 20 MG tablet Take 20 mg by mouth once daily. Active citalopram (CELEXA) 10 MG tablet Take 10 mg by mouth once daily. Active omeprazole (PRILOSEC) 20 MG capsule Take 20 mg by mouth daily before breakfast. Active oxyCODONE-acetaminophe n (PERCOCET) 5-325 MG tablet Take 1 Tab by mouth every 6 hours as needed for Pain. 15 Tab 0 09/23/2013 Active ibuprofen (MOTRIN) 600 MG tablet Take 1 Tab by mouth every 6 hours as needed for Pain. 90 Tab 0 09/23/2013 Active Social History Tobacco Use Types Packs/Day Years [...] Mass Index 43.94 10/08/2013 11:15 AM CDT Plan of Treatment Not on file Medical Devices Implanted Type Area Seed Cleaning Machine Operator Device Identifier Shelf Expiration Date Model / Serial / Lot Slng [place] Subfascial Implanted:Qty: 1 on 09/23/2013 by Briseyda Brown MD at [facility] N/A: Vagina [employer] 06/07/2016 [id number] / / [id number] Description:Implanted mid-ur ethral Care Teams Merchandising Execution Manager Relationship Specialty Start Date End Date Alex Browne MD PCP - General Family Medicine 09/03/13
--- OUTSIDE RECORDS SUMMARY | 2024-06-23 15:08 | XMS_ITS | Clinical Summary ---
Author Organization [facility] Address [address] [place] [address] [place] [address] Care Team Providers Care Consulting Intern Name Role Phone Alex Browne MD Primary Care Provider Unav ailable Source Comments [facility],non-owned Affiliates and Associated Physician Practices is amultiple site organization consisting of ambulatory clinics and hospital sitesin [place], [place], [place] and [place]. This disclosure is being madepursuant to the Care Everywhere program and may not contain all information available regarding this patient. Last updated 18.[facility] Allergies Active Allergy Reactions Criticality Noted Date [...] for Pain. 90 Tab 0 09/23/2013 Active Family History Medical History Relation Name Comments Depression Brother Depression Father Diabetes Father CAD (Coronary Artery Disease) Mother Depression Mother Diabetes Mother Depression Sister Relation Name Status Comments Brother Father Mother Sister Social History Tobacco Use Types Packs/Day Years [...] 10/08/2013 11:15 AM CDT Plan of Treatment Health Maintenance Due Date Last Done Comments BONE DENSITY TESTING 1955 COLOGUARD (AGES 45-75) - COL ON CA SCREENING 1956 COLON MONITORING 1956 COLONOSCOPY - COLON CA SCREENING 1956 CT COLONOGRAPHY - COLON CA SCREENING 1956 Colorectal Cancer Screening 1956 FIT - COLON CA SCREENING 1956 FLEX SIG - COLON CA SCREENING 1956 LIPID TESTING 1956 MAMMOGRAM 1955 MEDICARE AWV ? 12 MONTHS 1956 HEPATITIS C SCREENING 03/19/1974 DTAP/TDAP/TD VACCINES (1 - Tdap) 1975 ZOSTER VACCINE (1 of 2) 2006 Respiratory Syncytial Virus (RSV) Vaccine Pt: or over 60 yrs (1 - Risk 60-74 years 1-dose series) 2016 PNEUMOCOCCAL VACCINE 65+ (1 of 1 - PCV) 2021 DEPRESSION SCREENING 06/26/2023 COVID-19 VACCINE ( - 2023-2 5 season) 2024 INFLUENZA VACCINE (#1) 2024 HEPATITIS B VACCINE Aged Out No longe r eligible based on patient's age to complete this topic HIB VACCINE Aged Out No longer eligi ble based on patient's age to complete this topic HPV VACCINE Aged Out No longer eligi ble based on patient's age to complete this topic MENINGOCOCCAL VACCINE Aged Out No yecenia venkatesh eligible based on patient's age to complete this topic Medical Devices Implanted Type Area Work Order Clerk Device Identifier Shelf Expiration Date Model / Serial / Lot Slng [place] Subfascial Implanted:Qty: 1 on 09/23/2013 by Briseyda Brown MD at [facility] N/A: [facility] 06/07/2016 [id number] / / [id number] Description:Implanted mid-ur ethral Care Teams Consulting Intern Relationship Specialty Start Date End Date Alex Browne MD PCP - General Family Medicine 09/03/13
--- OUTSIDE RECORDS SUMMARY | 2024-06-23 15:08 | XMS_ITS | Continuity of Care Document ---
Author Organization [facility] Address [address] [place] [id number] Care Team Providers Care Clothes Drier Repairer Name Role Phone Franny Dolan Primary Care Physician Encounter [facility] Financial Number [id number] Date(s): 06/03/21 - 06/03/[address] [id number] Discharge Disposition: Home or Self Care Attending Physician: Martha Wolff MD Admitting Physician: Martha Wolff MD Referring Physician: Franny Dolan Allergies, Adverse Reactions, Alerts No Known Allergies Functional Status 06/03/21 Activity Assistance Independent Medications Bactrim DS (800 mg-160 mg) oral tablet 1 tablet(s), Oral, bid, 10 day(s), 20 tablet(s), Tablet(s), 0, 0, 06/13/2021 1045, Print Requisition Start Date: 06/03/21 Stop Date: 06/13/21 Status: Ordered busPIRone 7.5 mg oral tablet 7.5 mg, 1 tablet(s), Oral, bid, Tablet(s) Start Date: 05/31/21 Status: Ordered Colace 100 mg oral capsule 100 mg, 1 capsule(s), Oral, bid, PRN, 60 capsule(s), Capsule(s), 0, 0, for constipation, Print Requisition Start Date: 06/03/21 Status: Ordered cyclobenzaprine 10 mg oral tablet 10 mg, 1 tablet(s), Oral, tid, 14 day(s), 90 tablet(s), Tablet(s), 0, 0, 06/17/2021 1047, Print Requisition Start Date: 06/03/21 Stop Date: 06/17/21 Status: Ordered DULoxetine 60 mg oral delayed release capsule 60 mg, 1 capsule(s), Oral, daily, Capsule(s) Start Date: 05/31/21 Status: Ordered fenofibrate 134 mg oral capsule 134 mg, 1 capsule(s), Oral, daily with breakfast, 30 capsule(s), Capsule(s), 0 Start Date: 05/31/21 Status: Ordered Flonase 50 mcg/inh nasal spray 1 spray(s), Nasal, daily, [place] Start Date: 05/31/21 Status: Ordered Glucosamine Chondroitin oral capsule See Instructions, 0, Instructions Replace Required Details Start Date: 06/03/21 Status: Ordered hydroCHLOROthiazide 12.5 mg oral tablet 12.5 mg, 1 tablet(s), Oral, daily Start Date: 05/31/21 Status: Ordered levothyroxine 100 mcg (0.1 mg) oral tablet 100 mcg, 1 tablet(s), Oral, daily before breakfast, Tablet(s) Start Date: 05/31/21 Status: Ordered MegaKrill oral capsule 1 tab, Oral, daily Start Date: 05/31/21 Status: Ordered metFORMIN 500 mg oral tablet 500 mg, 1 tablet(s), Oral, qhs, Tablet(s) Start Date: 05/31/21 Status: Ordered Multivitamin oral tablet 1 tablet(s), Oral, daily, 30 tablet(s), Tablet(s), 0 Start Date: 06/03/21 Status: Ordered oxyCODONE 10 mg oral tablet 1-2 tablet(s), Oral, [id number], PRN, 7 day(s), 90 tablet(s), Tablet(s), 0, 0, pain, 06/10/2021 1045, Print Requisition Start Date: 06/03/21 Stop Date: 06/10/21 Status: Ordered Tylenol Extra Strength 500 mg oral tablet 1,000 mg, 2 tablet(s), Oral, [id number], PRN, 120 tablet(s), Tablet(s), 0, for pain Start Date: 06/03/21 Status: Ordered ZyrTEC 10 mg oral tablet 10 mg, 1 tablet(s), Oral, daily, 90 tablet(s), Tablet(s), 0 Start Date: 05/31/21 Status: Ordered Mental Status 06/03/21 Orientation Oriented x 4 Problem List Diagnosis Diagnosis Type Effective Dates Health Status Clinical Service Informant Encounter for other specified special examinations 06/03/21 Non-Specified Procedures Procedure Date Related Diagnosis Body Site Status bladder sling 06/26/13 Completed Completed carpal tunnel release bilat Completed cholecystectomy Completed hysterectomy Completed tonsilectomy Completed Results Laboratory List Name Date Basic Metabolic Profile 06/03/21 Most recent to oldest [Reference Range]: 1 BUN [7-17 mg/dL] 12 mg/dL (06/03/21 5:48 AM) Calcium [8.4-10.2 mg/dL] 9.8 mg/dL (06/03/21 5:48 AM) Chloride [98-107 mmol/L] 99 mmol/L (06/03/21 5:48 AM) CO2 [22-30 mmol/L] 30 mmol/L (06/03/21 5:48 AM) Glucose [74-106 mg/dL] 161 mg/dL *H* (06/03/21 5:48 AM) Potassium [3.5-4.9 mmol/L] 4.4 mmol/L (06/03/21 5:48 AM) Sodium [137-145 mmol/L] 136 mmol/L *L* (06/03/21 5:48 AM) Creatinine [0.5-1.0 mg/dL] 0.7 mg/dL (06/03/21 5:48 AM) eGFR(4vMDRD) [>=60 mL/min/1.73m2] >60 mL /min/1.73m2 (06/03/21 5:48 AM) eCrCl(C-Gault) 1.3 mL/min/kg (06/03/21 5:48 AM) Anion Gap [7-16 mmol/L] 7 mmol/L (06/03/21 5:48 AM) Radiology Reports * Exam Date Time Procedure Performing Provider Status 06/03/21 10:50 AM FLUORO IN OR RM OVER 120 MINUTES Emma Gill Solar [employer] Sales Specialist; Auth (Verified) Notes: (FLUORO IN OR RM OVER 120 MINUTES) Reason For Exam: c4-7 fusion FLUORO IN OR RM OVER 120 MINUTES Fluoroscopic Guidance provided Intraoperatively DATE: 06/03/2021 10:50 HISTORY: Intraoperative guidance required PROCEDURE: Fluoroscopic images acquired during the operative procedure. Documentation of the surgical procedure will be provided by the Surgeon or the designee. IMPRESSION: Fluoroscopic guidance provided. Please see the Surgeon's Note for full details of the procedure performed. Dictating Physician: Checo Tubbs MD Releasing Physician: Checo Tubbs MD Signature Electronically Authorized Authorized Date/Time: 03-JUN-2021 11:23 am * Exam Date Time Procedure Performing Provider Status 04/14/21 7:35 AM MRI CERVICAL SPINE W/O CONTRAST Balbmichael wilhelm, Emma [employer] Sales Specialist; Modified Notes: (MRI CERVICAL SPINE W/O CONTRAST) Reason For Exam: outside MRI REFERENCE OUTSIDE EXAM ALICIAFREDRICK BOYCE The MRI REFERENCE OUTSIDE EXAM was imported on 04/14/2021 for reference only of an MRI C-spine from [facility]. This exam was not performed at [facility] or [facility]. No external report was available when this exam was imported to PACS. Dictating Physician: Radiology, Department OF Releasing Physician: Radiology, Department OF Signature Electronically Authorized Authorized Date/Time: 03-JUN-2021 09:37 am * Exam Date Time Procedure Performing Provider Status 10/03/20 7:35 AM CERVICAL SPINE 4 OR 5 VIEWS [email or web address]; Modified Notes: (CERVICAL SPINE 4 OR 5 VIEWS) Reason For Exam: outside X-RAY REFERENCE OUTSIDE EXAM ALICIA Lani BOYCE The X-RAY REFERENCE OUTSIDE EXAM was imported on 10/03/2020 for reference only of C-spine radiographs from [facility]. This exam was not performed at [facility] or [facility]. No external report was available when this exam was imported to PACS. Dictating Physician: Radiology, Department OF Releasing Physician: Radiology, Department OF Signature Electronically Authorized Authorized Date/Time: 03-JUN-2021 09:36 am Vital Signs Most recent to oldest [Reference Range]: 1 2 3 Temperature Axillary [35.8-36.7 DegC] 36.6 DegC (06/03/21 10:50 AM) Temperature Tympanic [35.8-37.3 DegC] 36.5 DegC (06/03/21 5:28 AM) Peripheral Pulse Rate [60-100 bpm] 57 bpm *L* (06/03/21 5:28 AM) Respiratory Rate [14-22 br/min] 16 br/min (06/03/21 4:35 PM) 16 br/min (06/03/21 3:00 PM) 16 br/min (06/03/21 1:40 PM) Blood Pressure [89-139/60-90 mm Hg] 138/56mm Hg (06/03/21 4:35 PM) 138/56mm Hg (06/03/21 3:00 PM) 143/90mm Hg *H* (06/03/21 1:40 PM) Oxygen Therapy Room air (06/03/21 4:35 PM) Room air (06/03/21 3:00 PM) Room air (06/03/21 12:15 PM) Height 163 cm (06/03/21 5:45 AM) 163 cm (06/03/21 5:31 AM) 163 cm (06/03/21 5:28 AM) Weight 126.2 kg (06/03/21 5:45 AM) 126.2 kg (06/03/21 5:31 AM) 126.2 kg (06/03/21 5:28 AM) Social History Social History Type Response Alcohol Current some day alc ohol user, 1-2 times per month Substance Abuse Never drug user Smoking Status Former smoker;Never; Tobacco Cessation Counseling Requested N/A; Stopped at age: 35; entered on: 05/31/21 Sex Medical Equipment Implanted Date:06/03/21Target Site:Unknown Description Quantity MRI Company Model DPH-GRAFT SOFT TISSUE OSTEOAMP 5CC 1 B [employer] Unknown SWATHI:No Information Assigning Authority: FDA CRYSTAL TIBOND INTERBODY 3 [employer] Unknown SWATHI:No Information Assigning Authority: FDA 42mm 3-LEVEL CERVICAL PLATE 1 [employer] Unknown SWATHI:No Information Assigning Authority: FDA SCREW SELF DRILLING VARIABLE 4.0MM X 14MM 6 ZAVATION Unknown SWATHI:No Information Assigning Authority: FDA 14mm FIXED ANGLE SCREW 2 NEWAGE Un known SWATHI:No Information Assigning Authority: FDA
--- OUTSIDE RECORDS SUMMARY | 2024-06-23 15:08 | XMS_ITS | Encounter Summary ---
Author Organization [facility] Address [facility] [place] [address] Care Team Providers Care Contact Center Director Name Role Phone Alex Browne MD Primary Care Provider Unav ailable Reason for Visit * Auth/Cert - Closed Specialty Diagnoses / Procedures Referred By Michelle lozano Referred To Contact Diagnoses Female stress incontinence Acute lymphadenitis Procedures SLING OPERATION TRANSOBTURATOR CYSTOSCOPY Referral ID Status Reason Start Date Expiration Date Visits Re quested Visits Authorized [id number] Closed 1 1 Encounter Details Date Type Department Care Team (Late st Contact Info) Description 09/23/2013 10:30 AM CDT - 09/23/2013 12:00 PM CDT Surgery [facility] [address] [place] [address] Briseyda Brown MD [address] [place] [address] SLING OPERATION TRANSOBTURATOR Surgery Details Date/Time Status Location OR Service Patient Class Case Class Case Type Trauma Case? 09/23/2013 10:30 AM Posted [facility] 10 Gynecology Surgery Day Care Elective > 5 days Panel 1 Procedure LRB Anes Op Region Wound Class Comments SLING OPERATION TRANSOBTURATOR N/A Vagina Clean Contaminated CYSTOSCOPY (FLEXIBLE/RIGID) Bladder Cl agustin Contaminated BIOPSY VULVA General Vulva Clean Contaminate d Surgeon Surgeon Role Service Panel Briseyda Brown MD Primary Gynecology 1 Jenna Nunes MD Resident - Assisting Gynecolo gy 1 documented in this encounter Social History Tobacco [...] encounter Discharge Instructions * Discharge Instructions* Tammy Connor RN - 09/23/2013 1:35 PM CDT Post-Operative [...] a problem. Phone numbers Dr. Brown - [phone] (office) [phone] (exchange) Tammy Tomlinson R.N. - [phone] Rupal Goodwin LPN - [phone] During the daytime hours, if I am not available, my partners in Urogynecology can help. They are Dr. Tammy Ballard, Dr. Lowell Harvey, Dr. Baxter. After hours, if I am not available, my partners in the Department of Obstetrics and Gynecology at [facility] will assist in answering your questions. Discharge [...] documented in this encounter H&P Notes * rBiseyda Brown MD - 09/16/2013 2:50 PM CDT [...] for this basename: ABORH in the last [id number] hours Component Name 09/03/13 1126 WBC 6.2 [...] 86 Leakage amount: moderate Voiding pressure study (SPICE MIXER): She voided via detrusor contraction and valsalva. [...] and vulvar biopsies x2 Surgeon: Dr. Brown Well Flow Operator: Jenna Nunes MD Type of anesthesia: General Complications: none EBL: 75 cc Urine output: 50 cc Drains: sandra catheter IV Fluids: crystalloid 1000 cc Brief findings: Intact bladder with bilateral ureteral jets noted on cystoscopy. The patient was taken to the operating room where general anesthesia was found to be adequate. She was then positioned in the dorsal lithotomy position in [facility]. She was prepped and draped in the [...] the documentation above. Briseyda Brown MD, PhD Sales Support Administrator, Department of Obstetrics And Gynecology Division of Female Pelvic Medicine and Reconstructive Surgery [facility] cc: Briseyda Brown MD, PhD documented in [...] Case Report Surgical Pathology Report ? Case: [id number] ? -- Authorizing Provider: ??Briseyda Brown MD ?Ordering Provider: ?? Briseyda Brown MD ? Ordering Location: ? [facility] ? Collected: ? 09/23/2013 11:35 AM ? Pathologist: ? Yue Willard MD ? Received: ?09/23/2013 12:24 PM ?Signed Out: ?09/24/2013 ??1:38 PM (Final) ? Specimen: ?Labia Biopsy ? 09/24/2013 1:38 PM CDT [facility] Final Diagnosis 1. ??Vulva, biopsy: -- ??Lichen sclerosis et atrophicus -- ??Negative for dysplasia GM/alj 09/24/2013 1:38 PM CDT [facility] Gross Description Submitted fixed in formalin in one container labeled with the patient's name, Kristal Bustos, and vulva biopsy are two soft, yellow-mullen tissue fragments each measuring 0.4 cm in greatest dimension. The specimen is submitted in toto as A1. JULIANA/andrew 09/24/2013 1:38 PM CDT [facility] Microscopic Description Microscopic examination reveals vulvar tissue surfaced by stratified squamous mucosa that is atrophic and free of cytologic atypia or dysplasia. ??The underlying tissue shows hyalinization and homogenization ??with a mild chronic inflammatory infiltrate noted. 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 ??There is no evidence of granulomata or neoplasia. GM/alj 09/24/2013 1:38 PM CDT [facility] Synoptic Report 09/24/2013 1:38 PM CDT [facility] Pathology/Cytolo gy BIOPSY SPECIMEN / Unknown 09/23/2013 11:35 AM CDT 09/23/2013 12:24 PM CDT Briseyda Brown MD LAB - PATHOLOGY/CYTO LOGY ORDERABLES [facility] [address] [place] [address] * (ABNORMAL) BASIC METABOLIC PANEL (CALCIUM TOTAL) (09/23/2013 9:35 AM CDT) Glucose 97 74 - 106 mg/dL 09/23/2013 10:45 AM CDT [facility] Sodium 140 136 - 145 mmol/L 09/23/2013 10:45 AM CDT [facility] Potassium 3.7 3.5 - 5.1 mmol/L 09/23/2013 10:45 AM CDT [facility] Chloride 108(H) 98 - 107 mmol/L 09/23/2013 10:45 AM CDT [facility] CO2 27 22 - 31 mmol/L 09/23/2013 10:45 AM CDT [facility] Calcium 9.2 8.5 - 10.1 mg/dL 09/23/2013 10:45 AM CDT [facility] Anion Gap 5 5 - 15 mmol/L 09/23/2013 10:45 AM CDT [facility] BUN 20 7 - 21 mg/dL 09/23/2013 10:45 AM CDT [facility] Creatinine 0.63 0.50 - 1.30 mg/dL 09/23/2013 10:45 AM CDT [facility] eGFR by MDRD >60 >60 mL/min/1.7 3m2 09/23/2013 10:45 AM CDT [facility] eGFR by MDRD >60 >60 mL/min/1.7 3m2 09/23/2013 10:45 AM CDT [facility] Blood BLOOD SPECIMEN / Unknown Venipuncture / Unknown 09/23/2013 9:35 AM CDT 09/23/2013 10:05 AM CDT Lloyd Alexander DO LAB - CHEMISTRY BRYCE ROSAS Performing Organization Address City/State/[facility] Co de Phone Number [facility] [address] [place] [address] documented in this encounter Visit Diagnoses Diagnosis Female stress incontinence- Primary Preop examination Preoperative examination, unspecified Female stress incontinence Acute lymphadenitis documented in this encounter Administered Medications Inactive Administered Medications - up to 3 most recent administrations Medication Order MAR Action Action Date Dose Rate Site 0.9% NaCl infusion PRN, Starting on Mon09/23/13 at 1134, Until Mon09/23/13 at 1154, Intra-op $ Given 09/23/2013 11:34 AM CDT 250 mL Operative Site 0.9% nacl irrigation solution PRN, Other, Starting on Mon09/23/13 at 1111, Until Mon09/23/13 at 1154, Intra-op $ Given 09/23/2013 11:11 AM CDT 1,000 mL Operative Site bupivacaine 0.5% - epinephrine 1:200,000 (PF) injection PRN, Starting on Mon09/23/13 at 1134, Until Mon09/23/13 at 1154, Intra-op $ Given 09/23/2013 11:34 AM CDT 7 mL Operative Site lactated ringers infusion at 20 mL/hr, [...] Pre-op 1047 ($ Given - Prov ider: Devi Pickard APRN-SUPERVISING FLOORPERSON) scopolamine (TRANSDERM-SCOP) 1.5 MG patch 1.5 mg [...] MRI. 1039 ($ Given - Prov ider: Devi Pickard APRN-TAVIA) Continuous Medication Order 09/21/2013 09/22/2013 09/23/2013 lactated ringers infusion (CANCELED) at 20 mL/hr, Intravenous, PRE-OP CONTINUOUS, Starting on Mon09/23/13 at 0930, Until Mon09/23/13 at 1631, Pre-op 0940 ($ New Bag/Syri nge - Provider: Tammy Connor RN)1154 (Anesthesia Volume Adjustment - Provider: Devi Pickard APRN-TAVIA) lactated ringers infusion (CANCELED) at 125 mL/hr, Intravenous, CONTINUOUS, Starting on Mon09/23/13 at 1200, Until Mon09/23/13 at 1631, PACU 1203 ($ New Bag/Syri nge - Provider: Osmany Angel, ERNESTO) PRN Medication Order 09/21/2013 09/22/2013 09/23/2013 0.9% [...] MD) documented in this encounter Care Teams Contact Center Director Relationship Specialty Start Date End Date Alex Browne MD PCP - General Family Medicine 09/03/13 documented as of this encounter
--- OUTSIDE RECORDS SUMMARY | 2024-06-23 15:09 | XMS_ITS | Encounter Summary ---
Author Organization [facility] Address [address] [place] [address]. [place] [address] [place] [address] Care Team Providers Care Metal Bonding Worker Name Role Phone Franny Dolan PA-C Primary Care Provider +1- [phone] Reason for Visit * Reason Onset Date Comments Refill Request 03/27/2024 Encounter Details Date Type Department Care Team (Late st Contact Info) Description 03/27/2024 Telephone [facility] Family Medicine - [place] [address] [place] [address] Franny Dolan PA-C [address] [place] [address] Refill Request Social History Tobacco Use Types Packs/Day Years Used Date Smoking Tobacco: Former Cigarettes Q uit: 1997 Smokeless Tobacco: Never Alcohol Use Standard Drinks/Week Comments Not Currently 0 (1 standard drink = 0.6 oz pur e alcohol) holidays only PHQ-2 Answer Date Recorded Patient Health Questionnaire-2 Score 6 11/28/2023 Comments No Sex and Gender Information Value Date Recorded Sex Assigned at Not on file Legal Sex Female 6:13 PM CDT Gender Identity Not on file Sexual Orientation Not on file documented as of this encounter Progress Notes * Debbie Medina - 03/27/2024 11:01 AM CDT Pt needs a refill on the following please and [facility] Metformin 500mg Hydrochlorothiazide 25mg Cetirizine 10mg Pt is out of metformin and is wanting to know if she can have a 2 week supply sent to [facility] in [place] to hold her over until she gets her [facility] order in documented in this encounter Plan of Treatment Upcoming Encounters Date Type Department Care Team (Late st Contact Info) Description 11/07/2024 9:40 AM CDT Office Visit [facility] Family Medicine - [place] [phone] Franny Dolan PA-C [address] [place] [address] documented as of this encounter Visit Diagnoses Diagnosis Type 2 diabetes mellitus with hyperglycemia, without long-term current use of insulin ([facility])- Primary Allergies Essential hypertension Unspecified essential hypertension documented in this encounter Additional Health Concerns Assessment Noted Time PHQ-9 Depression Total Score: 22 024 9:46 AM CDT documented as of this encounter Care Teams Metal Bonding Worker Relationship Specialty Start Date End Date Franny Dolan PA-C [address] [place] [address] PCP - General PHYSICIAN POINT OF CARE SPECIALIST 02/05/21 documented as of this encounter
--- OUTSIDE RECORDS SUMMARY | 2024-06-23 15:09 | XMS_ITS | Encounter Summary ---
Author Organization [facility] Address [address] [place] [address]. [place], [place] [address] [place] [address] Care Team Providers Care Service Restorer Emergency Name Role Phone Franny Dolan PA-C Primary Care Provider +1- [phone] Encounter Details Date Type Department Care Team (Latest Contact Info) Description 02/08/2024 Scan [facility] SRVCS Scanned, Doc Med Group Social History Tobacco Use Types Packs/Day Years [...] on file documented as of this encounter Plan of Treatment Upcoming Encounters Date Type Department Care Team (Late st Contact Info) Description 11/07/2024 9:40 AM CDT Office Visit [facility] Family Medicine - [place] [address] [place] [phone] Franny Dolan PA-C [address] [place] [address] documented as of this encounter Visit Diagnoses Not on filedocumented in this encounter Additional Health Concerns Assessment Noted Time PHQ-9 Depression Total Score: 22 024 9:46 AM CDT documented as of this encounter Care Teams Service Restorer Emergency Relationship Specialty Start Date End Date Franny Dolan PA-C [address] [place] [address] PCP - General PHYSICIAN PAINTER AND DECORATOR APPRENTICE 02/05/21 documented as of this encounter
--- OUTSIDE RECORDS SUMMARY | 2024-06-23 15:09 | XMS_ITS | Encounter Summary ---
Author Organization [facility] Address [address] [place] [address]. [place], [place] [address] [place] [address] Care Team Providers Care It Solutions Sales Consultant Name Role Phone Franny Dolan PA-C Primary Care Provider +1- [phone] Encounter Details Date Type Department Care Team (Latest Contact Info) Description 05/01/2024 Travel Social History Tobacco Use Types Packs/Day Years [...] Description 11/07/2024 9:40 AM CDT Office Visit [facility] Family Medicine - [place] [address] [place] [phone] Franny Dolan PA-C [address] [place] [phone] documented as of this encounter Visit Diagnoses Not on filedocumented in this encounter Additional Health Concerns Assessment Noted Time PHQ-9 Depression Total Score: 22 024 9:46 AM CDT documented as of this encounter Care Teams It Solutions Sales Consultant Relationship Specialty Start Date End Date Franny Dolan PA-C [address] [place] [address] PCP - General PHYSICIAN PER DIEM INTERPRETER 02/05/21 documented as of this encounter
--- OUTSIDE RECORDS SUMMARY | 2024-06-23 15:09 | XMS_ITS | Encounter Summary ---
Author Organization [facility] Address [address] [facility] [place] [address] Care Team Providers Care Plaster Molder Name Role Phone Alex Browne MD Primary Care Provider Unav ailable Encounter Details Date Type Department Care Team (Latest Contact Info) Description 09/03/2013 10:50 AM CDT - 09/03/2013 11:59 PM CDT Hospital Encounter [facility] Health Imaging Services [address] [place] [address] Briseyda Brown MD [address] [place] [address] Discharge Disposition: Home or Self Care Social History Tobacco Use Types Packs/Day Years Used Date Smoking Tobacco: Never Assessed Sex and Gender Information Value Date Recorded Sex Assigned at Not on file Gender Identity Not on file Sexual Orientation Not on file documented as of this encounter Miscellaneous Notes * Miscellaneous Scans - Document, Scanned - 09/09/2013 8:48 AM CDT * Miscellaneous Scans - Document, Scanned - 09/09/2013 8:20 AM CDT * Miscellaneous Scans - Document, Scanned - 09/05/2013 8:54 AM CDT documented in this encounter Plan of Treatment Not on file documented as of this encounter Procedures Procedure Name Priority Date/Time Associated Diagnosis Comments CBC W AUTO DIFFERENTIAL Routine 09/03/2013 11:26 AM CDT Female stress incontinence Lichenification And Lichen Simplex Chronicus XR CHEST 2VW Routine 09/03/2013 11:10 AM CDT Female stress incontinence documented in this encounter Results * (ABNORMAL) CBC W AUTO DIFFERENTIAL (09/03/2013 11:26 AM CDT) WBC 6.2 4.4 - 10.7 x10^9/L 09/03/2013 12:06 PM CDT [facility] RBC 5.30(H) 3.80 - 5.20 x10^12/L 09/03/2013 12:06 PM CDT [facility] Hemoglobin 15.8(H) 12.0 - 15.6 gm/dL 09/03/2013 12:06 PM CDT [facility] Hematocrit 46.5(H) 35.9 - 45.5 % 09/03/2013 12:06 PM CDT [facility] MCV 87.7 80.7 - 98.3 fl 09/03/2013 12:06 PM CDT [facility] MCH 29.8 26.7 - 34.0 pg 09/03/2013 12:06 PM CDT [facility] MCHC 34.0 30.8 - 35.9 gm/dL 09/03/2013 12:06 PM CDT [facility] Platelet Count 282 153 - 416 x10^9/L 09/03/2013 12:06 PM CDT [facility] RDW-CV 13.2 12.1 - 14.9 % 09/03/2013 12:06 PM CDT [facility] MPV 10.0 9.4 - 12.9 fl 09/03/2013 12:06 PM CDT [facility] Neutrophils % 58.1 44.0 - 73.0 % 09/03/2013 12:06 PM CDT [facility] Lymphocytes % 28.2 20.0 - 43.0 % 09/03/2013 12:06 PM CDT [facility] Monocytes % 10.9 5.0 - 13.0 % 09/03/2013 12:06 PM CDT [facility] Eosinophils % 1.8 0.0 - 6.0 % 09/03/2013 12:06 PM CDT [facility] Basophils % 0.5 0.0 - 2.0 % 09/03/2013 12:06 PM CDT [facility] Immature Granulocytes 0.5 0 - 1 % 09/03/2013 12:06 PM CDT [facility] Neutrophil Absolute 3.58 2.01 - 7.14 x10^9/L 09/03/2013 12:06 PM CDT [facility] Lymphocytes Absolute 1.74 1.07 - 3.94 x10^9/L 09/03/2013 12:06 PM CDT [facility] Monocytes Absolute 0.67 0.26 - 1.07 x10^9/L 09/03/2013 12:06 PM CDT [facility] Eosinophils Absolute 0.11 0 - 0.47 x10^9/L 09/03/2013 12:06 PM CDT [facility] Basophils Absolute 0.03 0 - 0.08 x10^9/L 09/03/2013 12:06 PM CDT [facility] Immature Granulocytes Absolute 0.03 0.00 - 0.06 x10^9/L 09/03/2013 12:06 PM CDT [facility] nRBC Auto 0 /100 WBC 09/03/2013 12:06 PM CDT [facility] Blood BLOOD SPECIMEN / Unknown Venipuncture / Unknown 09/03/2013 11:26 AM CDT 09/03/2013 11:42 AM CDT Briseyda Brown MD LAB - HEMATOLOGY ORD ERABLES Performing Organization Address City/State/[facility] Co de Phone Number [facility] [address] [place] [address] * XR CHEST PA AND LATERAL ROUTINE [...] Briseyda Brown MD DIAGNOSTIC IMAGING O RDERABLES documented in this encounter Visit Diagnoses Diagnosis Female stress incontinence- Primary Lichenification and lichen simplex chronicus documented in this encounter Care Teams Plaster Molder Relationship Specialty Start Date End Date Alex Browne MD PCP - General Family Medicine 09/03/13 documented as of this encounter
--- OUTSIDE RECORDS SUMMARY | 2024-06-23 15:09 | XMS_ITS | Encounter Summary ---
Author Organization [facility] Address [address] [place] [address]. [place], [place] [address] [place] [address] Care Team Providers Care Store Manager Name Role Phone Franny Dolan PA-C Primary Care Provider +1- [phone] Encounter Details Date Type Department Care Team (Latest Contact Info) Description 03/28/2024 Scan [facility] SRVCS Scanned, Doc [...] Description 11/07/2024 9:40 AM CDT Office Visit [facility] Family Medicine - [place] [address] [place] [phone] Franny Dolan PA-C [address] [place] [address] documented as of this encounter Visit Diagnoses Not on filedocumented in this encounter Additional Health Concerns Assessment Noted Time PHQ-9 Depression Total Score: 22 024 9:46 AM CDT documented as of this encounter Care Teams Store Manager Relationship Specialty Start Date End Date Franny Dolan PA-C [address] [place] [address] PCP - General PHYSICIAN SULFIDE HEAD OPERATOR 02/05/21 documented as of this encounter
--- OUTSIDE RECORDS SUMMARY | 2024-06-23 15:09 | XMS_ITS | Encounter Summary ---
Author Organization [facility] Address [address] [place] [address]. [place] [address] [place] [address] Care Team Providers Care It Applications Manager Name Role Phone Franny Dolan PA-C Primary Care Provider +1- [phone] Reason for Visit * Reason Comments Mammogram (SCAN) Encounter Details Date Type Department Care Team (Late Contact Info) Description 02/23/2024 Scan [facility] SRVCS Scanned, Doc Med Group Mammogram (SCAN) Social History Tobacco Use Types Packs/Day Years [...] Encounters Date Type Department Care Team (Late Contact Info) Description 11/07/2024 9:40 AM CDT Office Visit [facility] Family Medicine - [place] [address] [place] [phone] Franny Dolan PA-C [address] [place] [address] documented as of this encounter Procedures Procedure Name Priority Date/Time Associated Diagnosis Comments MAMMOGRAM GENERIC (SCAN ORDER) 02/23/2024 documented in this encounter Results * MAMMOGRAM GENERIC (SCAN ORDER) (02/23/2024) Anatomical Region Laterality Modality Other 02/23/2024 us Doc Med Group Scanned SCANNING Final Resu lt documented in this encounter Visit Diagnoses Not on filedocumented in this encounter Additional Health Concerns Assessment Noted Time PHQ-9 Depression Total Score: 22 024 9:46 AM CDT documented as of this encounter Care Teams It Applications Manager Relationship Specialty Start Date End Date Franny Dolan PA-C [address] [place] [address] PCP - General PHYSICIAN ENDLESS STEAMER TENDER 02/05/21 documented as of this encounter
--- OUTSIDE RECORDS SUMMARY | 2024-06-23 15:09 | XMS_ITS | Encounter Summary ---
Author Organization [facility] Address [address] [place] [address]. [place] [address] [place] [address] Care Team Providers Care Machine Adjuster Helper Name Role Phone Kami Edmond PA-C Primary Care Provider [phone] Reason for Visit * Reason Comments Follow Up Patient is here for follow up of lab results Encounter Details Date Type Department Care Team (Late st Contact Info) Description 05/01/2024 10:40 AM ENGINEERING MGR Office Visit [facility] - [place] [phone] Kami Edmond PA-C [address] [place] [id number] Follow Up (Patient is here for follow up of lab results) Social History Tobacco Use Types Packs/Day Years [...] Sign Reading Time Taken Comments Blood Pressure 120/75 05/01/2024 10:47 AM ENGINEERING MGR Pulse 60 05/01/2024 10:47 AM ENGINEERING MGR Temperature 36.4 ??C (97.5 ??F) 05/01/2024 1 0:47 AM ENGINEERING MGR Respiratory Rate 18 05/01/2024 10:4 7 AM ENGINEERING MGR Oxygen Saturation 98% 05/01/2024 10: 47 AM ENGINEERING MGR Inhaled Oxygen Concentration - - Weight 121.8 kg (268 lb 9.6 oz) 024 10:47 AM ENGINEERING MGR Height 162.6 cm (5' 4 ) 05/01/2024 10:4 7 AM ENGINEERING MGR per pt Body Mass Index 46.11 05/01/2024 10:47 AM ENGINEERING MGR documented in this encounter Progress Notes * Kami Edmond PA-C - 05/01/2024 10:40 AM CST Reason for Visit: Follow Up (Patient is here for follow up of lab results) History of Present Illness: Patient here for follow up depression/anxiety/HTN/DM. Takes medication daily without side effects. She feels the cymbalta is helping. Feels cymbalta is helping the depression/anxiety. Denies any crying episodes, depressive mood, anxiety or suicide thoughts on the medication. Sleeps and eats well. Does try to follow diet and walks some, but she stress eats so she needs to work on that. Tolerating ozempic well. A1c was 6. Last eye exam was earlier this year. She wears her CPAP for NIRANJAN. Denies anyother complaints. ROS: Review of Systems Constitutional: Negative for fever. Respiratory: Negative for shortness of breath. Cardiovascular: Negative for chest pain. Gastrointestinal: Negative for abdominal pain, blood in stool, constipation, diarrhea, nausea and vomiting. Genitourinary: Negative for dysuria, frequency and hematuria. Psychiatric/Behavioral: Negative for suicidal ideas. All other systems reviewed and are negative. Medications: Current Outpatient Medications: acetaminophen CR 650 MG Tab CR 8 hr tablet, Take 1 tablet (650 mg total) by mouth., Disp: , Rfl: busPIRone (BUSPAR) 15 MG tablet, take 1 tablet twice a day, Disp: 180 tablet, Rfl: 1 cetirizine (ZYRTEC) 10 MG tablet, Take 1 tablet (10 mg total) by mouth daily., Disp: 90 tablet, Rfl: 3 clobetasol (TEMOVATE) 0.05 % ointment, Apply topically 2 (two) times daily., Disp: , Rfl: DULoxetine (CYMBALTA) 60 MG capsule, TAKE 1 CAPSULE DAILY, Disp: 90 capsule, Rfl: 1 Fenofibrate 134 MG Cap, Take 1 capsule by mouth daily with breakfast., Disp: 90 capsule, Rfl: 1 fluticasone propionate 50 MCG/ACT nasal spray, 2 sprays by Nasal route daily., Disp: , Rfl: glipiZIDE XL 10 MG 24 hr tablet, Take 1 tablet (10 mg total) by mouth daily with breakfast. Do not break or crush tablet, Disp: 90 tablet, Rfl: 1 glucosamine-chondroitin 500-400 mg Tab tablet, Take 1 tablet by mouth 3 (three) times daily., Disp:, Rfl: hydroCHLOROthiazide (HYDRODIURIL) 25 MG tablet, Take 1 tablet (25 mg total) by mouth every morning., Disp: 90 tablet, Rfl: 1 KRILL OIL OR, , Disp: , Rfl: levothyroxine (SYNTHROID) 100 MCG tablet, Take 1 tablet (100 mcg total) by mouth every morning., Disp: 90 tablet, Rfl: 3 losartan (COZAAR) 50 MG tablet, Take 1 tablet (50 mg total) by mouth daily., Disp: 90 tablet, Rfl: 3 metFORMIN ER (GLUCOPHAGE-XR) 500 MG 24 hr tablet, Take 1 tablet (500 mg total) by mouth daily with breakfast., Disp: 90 tablet, Rfl: 1 Multiple Vitamin (MULTIVITAMIN) capsule, Take 1 capsule by mouth daily., Disp: , Rfl: mupirocin (BACTROBAN) 2 % ointment, Apply topically 2 (two) times daily., Disp: , Rfl: OZEMPIC 2 mg/dose injection (PEN), INJECT 2MG INTO THE SKIN ONCE A WEEK, Disp: 9 mL, Rfl: 0 Review of patient's allergies indicates: Allergen Reactions Pollen Extract Runny Nose Dust Mite Extract Runny Nose Molds & Smuts Runny Nose Past Medical History: Diagnosis Date Chronic kidney disease Depression Diabetes mellitus ([facility]/HCC) Disease of thyroid gland Hypertension Polycythemia vera ([facility] HHS/HCC) Past Surgical History: Procedure Laterality Date BACK SURGERY CATARACT EXTRACTION Bilateral COLONOSCOPY STOMA DX INCLUDING COLLJ SPEC SPX FOOT FRACTURE SURGERY 1997 Metatarsal HC KIT BLADDER SLING/SUSPENSION 2013 HYSTERECTOMY 2000 LAPAROSCOPIC CHOLECYSTECTOMY 2002 Social History Socioeconomic History Marital status: Tobacco Use Smoking status: Former Current packs/day: 0.00 Types: Cigarettes Quit date: 1997 Years since quittin.8 Smokeless tobacco: Never Vaping Use Vaping status: Never Used Substance and Sexual Activity Alcohol use: Not Currently Comment: holidays only Drug use: Never E-Cigarettes Questions Responses E-Cigarette Use Never User E-cigarette/Vaping Substances Questions Responses Nicotine No THC No CBD No Flavoring No E-cigarette/Vaping Devices Questions Responses Disposable No Pre-filled or Refillable Cartridge No Refillable Tank No Pre-filled Pod No Family History Problem Relation Name Age of Onset Diabetes Mother Hypertension Mother Heart Disease Mother Diabetes Father Hypertension Father Heart Disease Father Lung Disease Father Other (breast cancer) Sister Cervical cancer Sister Liver cancer Brother Family Status Relation Name Status Mother Father Sister Sister Alive Brother (Not Specified) No partnership data on file Physical Exam Vitals reviewed. Constitutional: Appearance: Normal appearance. She is obese. Neck: Thyroid: No thyromegaly. Cardiovascular: Rate and Rhythm: Normal rate and regular rhythm. Pulmonary: Effort: Pulmonary effort is normal. Breath sounds: Normal breath sounds. Musculoskeletal: Right lower leg: No edema. Left lower leg: No edema. Neurological: Mental Status: She is alert. Psychiatric: Mood and Affect: Mood normal. Filed Vitals: 05/01/24 1047 BP: 120/75 Pulse: 60 Resp: 18 Temp: 97.5 ??F (36.4 ??C) TempSrc: Skin SpO2: 98% Weight: 121.8 kg (268 lb 9.6 oz) Height: 1.626 m (5' 4 ) Diagnoses/Impression: 1. Essential hypertension CBC W/DIFF AUTOMATED COMPREHENSIVE METABOLIC PANEL 2. Generalized anxiety disorder 3. Moderate episode of recurrent major depressive disorder ([facility] HHS/[facility]) 4. Type 2 diabetes mellitus with hyperglycemia, without long-term current use of insulin ([facility] HHS/[facility]) COMPREHENSIVE METABOLIC PANEL ALBUMIN URINE RANDOM W/CREATININE HEMOGLOBIN, GLYCOSYLATED 5. Mixed hyperlipidemia LIPID PANEL Recommendations and Plan: Discussed labs with patient. Continue same meds for HTN, anxiety, depression, DM, and hyperlipidemia. Discussed diet and exercise. Will have covid and RSV vaccine at pharmacy. Will follow up in 6 months. Orders Placed This Encounter CBC W/DIFF AUTOMATED COMPREHENSIVE METABOLIC PANEL LIPID PANEL ALBUMIN URINE RANDOM W/CREATININE HEMOGLOBIN, GLYCOSYLATED mupirocin (BACTROBAN) 2 % ointment Reviewed and updated this visit by provider: Tobacco Allergies Meds Problems Med Hx Surg Hx Fam Hx KAMI EDMOND PA-C Referring Provider: No ref. provider found PCP: KAMI EDMOND PA-C NEERING MGR documented in this encounter Plan of Treatment Upcoming Encounters Date Type Department Care Team (Late st Contact Info) Description 11/07/2024 9:40 AM CDT Office Visit [facility] Family Medicine - [place] [phone] Kami Edmond PA-C [address] [place] [id number] Scheduled Orders Name Type Priority Associated Diagnoses Orde r Schedule CBC W/DIFF AUTOMATED Lab Routine Essential hypertension Expected: 10/29/2024, Expires: 05/01/2025 COMPREHENSIVE METABOLIC PANEL Lab Routine Essential hypertension Type 2 diabetes mellitus with hyperglycemia, without long-term current use of insulin ([facility]) Expected: 10/29/2024, Expires: 05/01/2025 LIPID PANEL Lab Routine Mixed hyperlipidemia Expected: 10/29/2024, Expires: 05/01/2025 ALBUMIN URINE RANDOM W/CREATININE Lab Routine Type 2 diabetes mellitus with hyperglycemia, without long-term current use of insulin ([facility]) Expected: 10/29/2024, Expires: 05/01/2025 HEMOGLOBIN, GLYCOSYLATED Lab Routine Type 2 diabetes mellitus with hyperglycemia, without long-term current use of insulin ([facility]) Expected: 10/29/2024, Expires: 05/01/2025 documented as of this encounter Visit Diagnoses Diagnosis Essential hypertension- Primary Unspecified essential hypertension Generalized anxiety disorder Moderate episode of recurrent major depressive disorder ([facility]) Type 2 diabetes mellitus with hyperglycemia, without long-term current use of insulin ([facility]) Mixed hyperlipidemia documented in this encounter Additional Health Concerns Assessment Noted Time PHQ-9 Depression Total Score: 22 024 9:46 AM CDT documented as of this encounter Care Teams Machine Adjuster Helper Relationship Specialty Start Date End Date Kami Edmond PA-C [address] [place] [id number] PCP - General PHYSICIAN ENGAGEMENT ENGINEER 02/05/21 documented as of this encounter
--- OUTSIDE RECORDS SUMMARY | 2024-06-23 15:09 | XMS_ITS | Clinical Summary ---
Author Organization [facility] Address [address] [place] [address]. [place] [address] [place] [address] Care Team Providers Care Infrastructure Software Engineer Name Role Phone Franny Dolan PA-C Primary Care Provider [phone]- [phone] Allergies Active Allergy Reactions Criticality Noted Date Comments Dust Mite Extract Runny Nose Low 02/20/2018 Molds & Smuts Runny Nose Low 02/20/2018 Pollen Extract Runny Nose 02/20/2018 Medications acetaminophen CR 650 MG Tab CR 8 hr tablet Take 1 tablet (650 mg total) by mouth. Active fluticasone propionate 50 MCG/ACT nasal spray 2 sprays by Nasal route daily. Active glucosamine-chond roitin 500-400 mg Tab tablet Take 1 tablet by mouth 3 (three) times daily. Active Multiple Vitamin (MULTIVITAMIN) capsule Take 1 capsule by mouth daily. Active KRILL OIL OR Active clobetasol (TEMOVATE) 0.05 % ointment Apply topically 2 (two) times daily. 05/23/20 22 Active levothyroxine (SYNTHROID) 100 MCG tabletIndications :Acquired hypothyroidism Take 1 tablet (100 mcg total) by mouth every morning. 90 tablet 3 10/18/19 24 Active losartan (COZAAR) 50 MG tabletIndications :Essential hypertension Take 1 tablet (50 mg total) by mouth daily. 90 tablet 3 10/18/19 24 Active DULoxetine (CYMBALTA) 60 MG capsuleIndication s:Moderate episode of recurrent major depressive disorder (CMS/HCC HHS/HCC),Generali zed anxiety disorder TAKE 1 CAPSULE DAILY 90 capsule 1 03/19/20 24 Active cetirizine (ZYRTEC) 10 MG tabletIndications :Allergies Take 1 tablet (10 mg total) by mouth daily. 90 tablet 3 03/27/20 24 Active metFORMIN ER (GLUCOPHAGE-XR) 500 MG 24 hr tabletIndications :Type 2 diabetes mellitus with hyperglycemia, without long-term current use of insulin ([facility] HHS/HCC) Take 1 tablet (500 mg total) by mouth daily with breakfast. 90 tablet 1 03/27/20 24 Active hydroCHLOROthiazi de (HYDRODIURIL) 25 MG tabletIndications :Essential hypertension Take 1 tablet (25 mg total) by mouth every morning. 90 tablet 1 03/27/20 24 Active busPIRone (BUSPAR) 15 MG tabletIndications :Generalized anxiety disorder take 1 tablet twice a day 180 tablet 1 04/17/20 24 Active mupirocin (BACTROBAN) 2 % ointment Apply topically 2 (two) times daily. 03/28/20 24 Active OZEMPIC 2 mg/dose injection (PEN)Indications: Type 2 diabetes mellitus with hyperglycemia, without long-term current use of insulin (CMS/HCC HHS/HCC),Morbid (severe) obesity due to excess calories ([facility]/HCC HHS/HCC) INJECT 2MG INTO THE SKIN ONCE A WEEK 9 mL 05/13/20 24 Active fenofibrate micronized (LOFIBRA) 134 MG capsuleIndication s:Mixed hyperlipidemia TAKE 1 CAPSULE DAILY WITH BREAKFAST 90 capsule 3 06/11/20 24 Active glipiZIDE XL (GLUCOTROL XL) 10 MG 24 hr tabletIndications :Type 2 diabetes mellitus with hyperglycemia, without long-term current use of insulin ([facility]/HCC HHS/HCC) TAKE 1 TABLET DAILY WITH BREAKFAST. DO NOT BREAK OR CRUSH TABLET 90 tablet 3 06/11/20 24 Active glipiZIDE XL 10 MG 24 hr tabletIndications :Type 2 diabetes mellitus with hyperglycemia, without long-term current use of insulin ([facility]/HCC HHS/HCC) Take 1 tablet (10 mg total) by mouth daily with breakfast. Do not break or crush tablet 90 tablet 1 01/01/20 24 024 Discontinued Fenofibrate 134 MG CapIndications:Mi xed hyperlipidemia Take 1 capsule by mouth daily with breakfast. 90 capsule 1 01/01/20 24 024 Discontinued Active Problems Problem Noted Date Diagnosed Date History of colon polyps 10/18/2022 Type 2 diabetes mellitus wit h hyperglycemia ([facility]) 05/30/2022 Generalized anxiety disorder 03/30/2022 Morbid (severe) obesity due to excess calories ([facility]) 03/02/2022 Body mass index (BMI) 45.0-49.9, adult ([facility]) 03/02/2022 Allergic conjunctivitis of both eyes 11/30/2021 Yeast infection of the skin 08/30/2021 Fatty liver 03/21/2021 Acquired hypothyroidism 02/09/2021 Allergies 02/09/2021 Moderate episode of recurren t major depressive disorder ([facility]) 02/09/2021 Essential hypertension 02/09/2021 Hyperlipidemia 02/09/2021 NIRANJAN (obstructive sleep apnea) 10/19/2020 Overview (02/09/2021): Last Assessment & Plan: Patient continue to wear her CPAP at 15 cm water pressure while sleeping. Her DME is [facility]. Secondary polycythemia 02/20/2018 Encounters Date Type Department Care Team Description 05/01/2024 10:40 AM INTERNAL COMMUNICATIONS SPECIALIST Office Visit [address] [phone] Franny Dolan PA-C Follow Up (Patient is here for follow up of lab results) 05/01/2024 Travel 03/28/2024 Scan Whistle INFO SRVCS Scanned, [facility] 03/27/[address] [phone] Franny Dolan PA-C Refill Request from Last 3 Months Immunizations Name Administration Dates Next Due Fluad influenza vaccine, Poli drivalent (aIIV4), Inactivated, adjuvanted, preservative free, 0.5 mL,IM use 04/05/2021 Flucelvax 6 Months+ (Prefill ed Syringe) 04/09/2019,04/02/2018 Fluzone High Dose - >Age 65 (Prefilled Syringe) 04/10/2022 Influenza (Generic) 06/04/2018 Influenza Adult (Generic) 03/28/2023,04/2021,03/15/2020,2018,04/02/2018,03/12/2017,03/26/2016 Pneumococcal (Pneumovax 23) 08/30/2021 Shingrix 03/26/2022,01/21/2022 Tdap (Generic) 02/08/2022 Family History Medical History Relation Comments Liver cancer Brother Diabetes Father Heart Disease Father Hypertension Father Lung Disease Father Diabetes Mother Heart Disease Mother Hypertension Mother breast cancer Sister 1 Cervical cancer Sister 2 Relation Status Comments Brother Father Mother Sister 1 Sister 2 Alive Social History Tobacco Use Types Packs/Day Years Used Date Smoking Tobacco: Former Cigarettes Q uit: 1997 Smokeless Tobacco: Never Tobacco Cessation:Counseling Given: Not Answered Alcohol Use Standard Drinks/Week Comments Not Currently [...] Comments Blood Pressure 120/75 05/01/2024 10:47 AM INTERNAL COMMUNICATIONS SPECIALIST Pulse 60 05/01/2024 10:47 AM INTERNAL COMMUNICATIONS SPECIALIST Temperature 36.4 ??C (97.5 ??F) 05/01/2024 1 0:47 AM INTERNAL COMMUNICATIONS SPECIALIST Respiratory Rate 18 05/01/2024 10:4 7 AM INTERNAL COMMUNICATIONS SPECIALIST Oxygen Saturation 98% 05/01/2024 10: 47 AM INTERNAL COMMUNICATIONS SPECIALIST Inhaled Oxygen Concentration - - Weight 121.8 kg (268 lb 9.6 oz) 024 10:47 AM INTERNAL COMMUNICATIONS SPECIALIST Height 162.6 cm (5' 4 ) 05/01/2024 10:4 7 AM INTERNAL COMMUNICATIONS SPECIALIST per pt Body Mass Index 46.11 05/01/2024 10:47 AM INTERNAL COMMUNICATIONS SPECIALIST Plan of Treatment Upcoming Encounters Date Type Department Care Team (Late st Contact Info) Description 11/07/2024 9:40 AM CDT Office Visit [facility] Family Medicine - [place] [phone] Franny Dolan PA-C [address] [place] [address] [phone] Health Maintenance Due Date Last Done Comments Kidney Health Evaluation 1955 RSV Immunization or 60+ Years (1 - Risk 60-74 years 1-dose series) 2016 Annual Medicare Wellness Visit 2021 Pneumococcal Vaccine: 65+ Years (2 of 2 - PCV) 08/30/2022 08/30/2021 COVID-19 Vaccine ( season) 2024 04/18/2023, 02/19/2022, 08/09/2021, Additional history exists Lipid Panel 08/23/2024 08/24/2023, 09/25, 11/24/2021, Additional history exists Hemoglobin A1C 10/24/2024 04/26/2024, 10/26, 08/24/2023, Additional history exists Diabetes: Retinopathy Eye Exam 04/27/2025 04/27/2023, 11/28/2021 Influenza Adult (#1) 2025 03/28/2023, 04/10/2022, 04/05/2021, Additional history exists Postponed from 03/26/2024 (Awaiting Documentation) Mammogram Screening 02/22/2026 02/23/2024, 01/16/2023, 10/29/2021, Additional history exists Colorectal Cancer Screening Colonoscopy (10 Years) 02/22/2027 02/22/2017 DTaP, Tdap and Td Vaccines (2 - Td or Tdap) 02/09/2032 02/08/2022 Dexa Scan (General) Completed 09/27/2016, 7 Zoster Vaccines Completed 03/26/2022, 01/21/2022 Hepatitis C Completed 01/24/2023 Meningococcal Vaccine Aged Out No yecenia venkatesh eligible based on patient's age to complete this topic RSV Immunizations Under 20 Months Aged Out No longer eligible based on patient's age to complete this topic Procedures Procedure Name Priority Date/Time Associated Diagnosis Comments COMPREHENSIVE METABOLIC PANEL Routine 04/26/2024 7:06 AM CDT Essential hypertension Type 2 diabetes mellitus with hyperglycemia, without long-term current use of insulin ([facility]/HCC HHS/HCC) HEMOGLOBIN, GLYCOSYLATED Routine 04/26/2024 7:06 AM CDT Type 2 diabetes mellitus with hyperglycemia, without long-term current use of insulin (CMS/HCC HHS/HCC) MAMMOGRAM GENERIC (SCAN ORDER) 02/23/2024 LIPID PANEL Routine 08/24/2023 7:50 AM INTERNAL COMMUNICATIONS SPECIALIST Mixed hyperlipidemia DIABETIC RETINOPATHY EXAM (NEGATIVE)(SCAN ORDER) Routine 04/27/2023 HEPATITIS C ANTIBODY W/RFX TO HCV RNA Routine 01/24/2023 8:15 AM CDT Need for hepatitis C screening test Elevated LFTs COLONOSCOPY GENERIC (SCAN ORDER) 02/22/2017 BONE DENSITY GENERIC (SCAN ORDER) 09/27/2016 from Last 3 Months or Most Recently Relevant to Health Maintenance Results * (ABNORMAL) HEMOGLOBIN, GLYCOSYLATED (04/26/2024 7:06 AM CDT) HGB A1C 6.0(H) <5.7 % of total Hgb [facility] [place] Comment: For someone without known diabetes, a hemoglobin A1c value between 5.7% and 6.4% is consistent with prediabetes and should be confirmed with a follow-up test. For someone with known diabetes, a value <7% indicates that their diabetes is well controlled. A1c targets should be individualized based on duration of diabetes, age, comorbid conditions, and other considerations. This assay result is consistent with an increased risk of diabetes. Currently, no consensus exists regarding use of hemoglobin A1c for diagnosis of diabetes for children. 04/26/2024 7:06 AM CDT 04/26/2024 7:07 AM CDT Narrative [facility] [place] [facility] - 04/27/2024 7:50 AM CDT FASTING:YES FASTING: YES Resulting Agency Comment Performing Organization Information: ?Site ID: [place] ?Name: [facility] ?Address: [address] [place] [address] ?Director: Shante Salvador us Franny Dolan PA-C LABORATORY Final Resu lt [facility] [place] [place] [address] [place] [address], * COMPREHENSIVE METABOLIC PANEL (04/26/2024 7:06 AM CDT) GLUCOSE 85 65 - 99 mg/dL [facility] [employer] [facility] Comment: ? Fasting reference interval BUN 12 7 - 25 mg/dL [facility] CREATININE S/P/B 0.76 0.50 - 1.05 mg/dL [facility] GFR ESTIMATE 85 > OR = 60 mL/min/1. 73m2 [facility] BUN CREATININE RATIO SEE NOTE: (calc) [facility] Comment: ?? Not Reported: BUN and Creatinine are within ?? reference range. ? SODIUM S/P/B 136 135 - 146 mmol/L [facility] POTASSIUM S/P/B 3.9 3.5 - 5.3 mmol/L [facility] A[place] CHLORIDE S/P/B 100 98 - 110 mmol/L [facility] CO2 30 20 - 32 mmol/L [facility] CALCIUM S/P/B 9.9 8.6 - 10.4 mg/dL [facility] TOTAL PROTEIN S/P/B 6.7 6.1 - 8.1 g/dL [facility] ALBUMIN S/P/B 4.2 3.6 - 5.1 g/dL [facility] [place] GLOBULIN 2.5 1.9 - 3.7 g/dL (calc) [facility] ALBUMIN/GLOBULI N RATIO 1.7 1.0 - 2.5 (calc) [facility] BILIRUBIN TOTAL S/P/B 0.5 0.2 - 1.2 mg/dL [facility] ALKALINE PHOSPHATASE S/P/B 92 37 - 153 U/L [facility] AST 28 10 - 35 U/L [facility] ALT 29 6 - 29 U/L [facility] 04/26/2024 7:06 AM CDT 04/26/2024 7:07 AM CDT Narrative [facility] [place] - 04/27/2024 7:50 AM CDT FASTING:YES FASTING: YES Resulting Agency Comment Performing Organization Information: ?Site ID: [place] ?Name: [facility] ?Address: [address] [address] ?Director: Shante Salvador MD Franny Dolan PAWilliamC LABORATORY Final Resu lt [facility] [place] [address] [id number], [place] * MAMMOGRAM GENERIC (SCAN ORDER) (02/23/2024) Anatomical Region Laterality Modality Other 02/23/2024 us [facility] Scanned SCANNING Final Resu lt * LIPID PANEL (08/24/2023 7:50 AM INTERNAL COMMUNICATIONS SPECIALIST) CHOLESTEROL 133 <200 mg/dL [facility] HDL 58 > OR = 50 mg/dL [facility] TRIGLYCERIDES 145 <150 mg/dL [facility] LDL (CALCULATED) 52 mg/dL (calc) [facility] Comment: Reference range: <100 Desirable range <100 mg/dL for primary prevention; ?? <70 mg/dL for patients with CHD or diabetic patients with > or = 2 CHD risk factors. LDL-C is now calculated using the Prakash calculation, which is a validated novel method providing better accuracy than the Friedewald equation in the estimation of LDL-C. Trino SS et al. CELSA. 2013;310(19): 6081-7550 (http://education.[employer] Guru.[employer]/faq/FDZ660) CHOL/HDL RATIO 2.3 <5.0 (calc) [facility] NON HDL CHOLESTEROL 75 <130 mg/dL (calc) [facility] Comment: For patients with diabetes plus 1 major ASCVD risk factor, treating to a non-HDL-C goal of <100 mg/dL (LDL-C of <70 mg/dL) is considered a therapeutic option. 08/24/2023 7:50 AM INTERNAL COMMUNICATIONS SPECIALIST 08/24/2023 7:51 AM INTERNAL COMMUNICATIONS SPECIALIST Narrative [facility] - 08/25/2023 3:40 AM INTERNAL COMMUNICATIONS SPECIALIST FASTING:YES FASTING: YES Resulting Agency Comment Performing Organization Information: ?Site ID: [place] ?Name: [facility] ?Address: [address] [place] [address] ?Director: Shante Salvador MD Franny TROYC LABORATORY Final Resu lt [facility] [place] [facility] [address] [place] [address], [place] * DIABETIC RETINOPATHY EXAM (NEGATIVE)(SCAN) (04/27/2023) [facility] Scanned SCANNING Final Resu lt Performing Organization Address City/[facility]/ZIP Co de Phone Number [facility] ON[facility] * HEPATITIS C ANTIBODY W/RFX TO HCV RNA (01/24/2023 8:15 AM CDT) HEPATITIS C AB NON-REACT SULAIMAN NON-REACT SULAIMAN [facility] Comment: HCV antibody was non-reactive. There is no laboratory evidence of HCV infection. In most cases, no further action is required. However, if recent HCV exposure is suspected, a test for HCV RNA (test code 69998) is suggested. For additional information please refer to http://education.[employer]/faq/AFM49g5 (This link is being provided for informational/ educational purposes only.) 01/24/2023 8:15 AM CDT 01/24/2023 8:17 AM CDT Narrative [facility] [place] - 01/25/2023 3:32 AM CDT FASTING:YES FASTING: YES Resulting Agency Comment Performing Organization Information: ?Site ID: [place] ?Name: [facility] ?Address: [address] [address] ?Director: Shante Salvador MD us Franny Dolan PA-C LABORATORY Final Resu lt [facility] [address] [address], * COLONOSCOPY GENERIC (02/22/2017) 02/22/2017 Narrative 02/22/2017 Ordered by an unspecified provider. us Documents Scanned SCANNING Final Result * BONE DENSITY GENERIC (09/27/2016) Anatomical Region Laterality Modality Other 09/27/2016 Narrative 09/27/2016 Ordered by an unspecified provider. us Documents Scanned SCANNING Final Result from Last 3 Months or Most Recently Relevant to Health Maintenance Insurance MEDICARE Care Teams Infrastructure Software Engineer Relationship Specialty Start Date End Date Franny Dolan PA-C [address] [place] [phone] PCP - General PHYSICIAN REEL TENDER 02/05/21
--- OUTSIDE RECORDS SUMMARY | 2024-06-23 15:09 | XMS_ITS | Encounter Summary ---
Author Organization [facility] Address [address] [place] [address]. [place], [place] [id number] [place] [address] Care Team Providers Care Non Cdl Driver Name Role Phone Franny Dolan PA-C Primary Care Provider [phone]- [phone] Encounter Details Date Type Department Care Team (Latest Contact Info) Description 01/29/2024 Travel Social History Tobacco Use Types Packs/Day [...] Description 11/07/2024 9:40 AM CDT Office Visit [facility] Family Medicine - [place] [address] [place] [phone] Franny Dolan PA-C [address] [place] [address] [phone] documented as of this encounter Visit Diagnoses Not on filedocumented in this encounter Additional Health Concerns Assessment Noted Time PHQ-9 Depression Total Score: 22 024 9:46 AM CDT documented as of this encounter Care Teams Non Cdl Driver Relationship Specialty Start Date End Date Franny Dolan PA-C [address] [place] [id number] PCP - General PHYSICIAN HUMAN RESOURCES ADMINISTRATOR 02/05/21 documented as of this encounter
--- OUTSIDE RECORDS SUMMARY | 2024-06-23 15:09 | XMS_ITS | Encounter Summary ---
Author Organization [facility] Address [address] [place] [address]. [place], [place] [address] [place] [address] Care Team Providers Care Nuclear Fuel Processing Technician Name Role Phone Kami Edmond PA-C Primary Care Provider +1- [phone] Reason for Referral * Imaging (Routine) - Authorized Specialty Diagnoses / Procedures Referred By Michelle t Referred To Contact RADIOLOGY Diagnoses Screening mammogram, encounter for Procedures MG SCREENING W JUAN WENDY DIGI Kami Edmond PA-C [address] [place] [address] Phone: tel: fax: [place] [address] Phone: tel: fax: Referral ID Status Reason Start Date Expiration Date V isits Requested Visits Authorized [id number] Authorized 01/29/2024 03/30/2025 1 1 Reason for Visit * Reason Comments Hypertension Diabetes Pt presents for foll ow up Encounter Details Date Type Department Care Team (Late st Contact Info) Description 01/29/2024 10:20 AM CDT Office Visit [facility] Family Medicine - [address] [phone] aKmi Edmond PA-C [address] [place] [address] Hypertension; Diabetes (Pt presents for follow up ) Social History Tobacco Use Types Packs/Day Years [...] Sign Reading Time Taken Comments Blood Pressure 106/61 01/29/2024 10:29 AM CDT Pulse 65 01/29/2024 10:29 AM CDT Temperature 36.4 ??C (97.6 ??F) 01/29/2024 1 0:29 AM CDT Respiratory Rate - - Oxygen Saturation 96% 01/29/2024 10: 29 AM CDT Inhaled Oxygen Concentration - - Weight 121.3 kg (267 lb 6.4 oz) 024 10:29 AM CDT Height 162.6 cm (5' 4 ) 01/29/2024 10:2 9 AM CDT Body Mass Index 45.9 01/29/2024 10:29 AM CDT documented in this encounter Progress Notes * Kami Edmond PA-C - 01/29/2024 10:20 AM CDT Reason for Visit: Hypertension and Diabetes (Pt presents for follow up ) History of Present Illness: Patient here for follow up depression/anxiety/HTN. Takes medication daily without side effects. Shefeels the increased cymbalta helped a lot. Feels cymbalta is helping the depression/anxiety. Deniesany crying episodes, depressive mood, anxiety or suicide thoughts on the medication. Sleeps and eats well. Does try to follow diet and walks some. Tolerating ozempic well. She wears her CPAP for NIRANJAN.Denies any other complaints. ROS: Review of Systems Constitutional: Negative [...] , Rfl: busPIRone (BUSPAR) 15 MG tablet, Take 1 tablet (15 mg total) by mouth 2 (two) times daily., Disp: 180 tablet, Rfl: 1 cetirizine (ZYRTEC) 10 MG tablet, Take 1 tablet (10 mg total) by mouth daily., Disp: 90 tablet, Rfl: 3 clobetasol (TEMOVATE) 0.05 % ointment, Apply topically 2 (two) times daily., Disp: , Rfl: DULoxetine (CYMBALTA) 30 MG capsule, Take 1 capsule (30 mg total) by mouth daily., Disp: 90 capsule, Rfl: 1 DULoxetine (CYMBALTA) 60 MG capsule, Take 1 capsule (60 mg total) by mouth daily., Disp: 90 capsule, Rfl: 1 Fenofibrate 134 [...] Disp:, Rfl: hydroCHLOROthiazide (HYDRODIURIL) 25 MG tablet, take 1 tablet every morning, Disp: 90 tablet, Rfl: 3 KRILL OIL OR, , Disp: , Rfl: [...] total) by mouth daily with breakfast., Disp: , Rfl: Multiple Vitamin (MULTIVITAMIN) capsule, Take 1 capsule by mouth daily., Disp: , Rfl: nystatin (MYCOSTATIN) powder, Apply topically 3 (three) times daily., Disp: 60 g, Rfl: 1 semaglutide (OZEMPIC) 2 mg/dose injection (PEN), Inject 2 mg into the skin once a week. Indications: Diabetes, Disp: 9 mL, Rfl: 0 Review of patient's allergies indicates: Allergen Reactions Pollen Extract Runny Nose Dust Mite Extract Runny Nose Molds & Smuts Runny Nose Past Medical History: Diagnosis Date Chronic kidney disease Depression Diabetes mellitus ([facility] HHS/HCC) Disease of thyroid gland Hypertension Polycythemia vera ([facility]) Past Surgical History: Procedure Laterality Date BACK SURGERY CATARACT EXTRACTION Bilateral COLONOSCOPY STOMA DX INCLUDING COLLJ SPEC SPX FOOT FRACTURE SURGERY 1997 Metatarsal HC KIT BLADDER SLING/SUSPENSION 2013 HYSTERECTOMY 2000 LAPAROSCOPIC CHOLECYSTECTOMY 2002 Social History Socioeconomic History Marital status: Tobacco Use Smoking status: Former Current packs/day: 0.00 Types: Cigarettes Quit date: 1997 Years since quittin.6 Smokeless tobacco: Never Vaping Use Vaping status: [...] Mood and Affect: Mood normal. Filed Vitals: 01/29/24 1029 BP: 106/61 Pulse: 65 Temp: 97.6 ??F (36.4 ??C) TempSrc: Temporal SpO2: 96% Weight: 121.3 kg (267 lb 6.4 oz) Height: 1.626 m (5' 4 ) Diagnoses/Impression: 1. Essential hypertension COMPREHENSIVE METABOLIC PANEL 2. Morbid (severe) obesity due to excess calories ([facility]) 3. Type 2 diabetes mellitus with hyperglycemia, without long-term current use of insulin ([facility]) HEMOGLOBIN, GLYCOSYLATED COMPREHENSIVE METABOLIC PANEL 4. Generalized anxiety disorder 5. Moderate episode of recurrent major depressive disorder ([facility]) 6. NIRANJAN (obstructive sleep apnea) 7. Screening mammogram, encounter for MG SCREENING W JUAN WENDY DIGI Recommendations and Plan: Discussed labs with patient. Continue same meds for HTN, DM, anxiety, and depression. Discussed diet and exercise for obesity. Will continue to wear her CPAP for NIRANJAN. Will have covid vaccine at pharmacy. Will follow up in 3 months. Orders Placed This Encounter HEMOGLOBIN, GLYCOSYLATED COMPREHENSIVE METABOLIC PANEL MG SCREENING W JUAN WENDY DIGI Reviewed and updated this visit by provider: Tobacco Allergies Meds Problems Med Hx Surg Hx Fam Hx KAMI EDMOND PA-C Referring Provider: No ref. provider found PCP: KAMI EDMOND PA-C documented in this encounter Plan of Treatment Upcoming Encounters Date Type Department Care Team (Late st Contact Info) Description 11/07/2024 9:40 AM CDT Office Visit [facility] Family Medicine - [address] [phone] Kami Edmond PA-C [address] [place] [phone] Scheduled Orders Name Type Priority Associated Diagnoses Orde r Schedule MG SCREENING W JUAN WENDY DIGI MAMMO Routine Screening mammogram, encounter for Expected: 01/29/2024, Expires: 03/30/2025 documented as of this encounter Procedures Procedure Name Priority Date/Time Associated Diagnosis Comments HEMOGLOBIN, GLYCOSYLATED Routine 04/26/2024 7:06 AM CDT Type 2 diabetes mellitus with hyperglycemia, without long-term current use of insulin ([facility] HHS/HCC) COMPREHENSIVE METABOLIC PANEL Routine 04/26/2024 7:06 AM CDT Essential hypertension Type 2 diabetes mellitus with hyperglycemia, without long-term current use of insulin ([facility] HHS/HCC) documented in this encounter Results * COMPREHENSIVE METABOLIC PANEL (04/26/2024 7:06 AM CDT) Pathologist [facility] GLUCOSE 85 65 - 99 mg/dL [employer] [facility] Comment: ? Fasting reference interval BUN 12 7 - 25 mg/dL [facility] CREATININE S/P/B 0.76 0.50 - 1.05 mg/dL [facility] GFR ESTIMATE 85 > OR = 60 mL/min/1. 73m2 [facility] [employer] [facility] BUN CREATININE RATIO SEE NOTE: (calc) [facility] Comment: ?? Not Reported: BUN and Creatinine are within ?? reference range. ? SODIUM S/P/B 136 135 - 146 mmol/L [facility] POTASSIUM S/P/B 3.9 3.5 - 5.3 mmol/L [facility] CHLORIDE S/P/B 100 98 - 110 mmol/L [facility] ANALISA CO2 30 20 - 32 mmol/L [facility] CALCIUM S/P/B 9.9 8.6 - 10.4 mg/dL [facility] TOTAL PROTEIN S/P/B 6.7 6.1 - 8.1 g/dL [facility] ALBUMIN S/P/B 4.2 3.6 - 5.1 g/dL [facility] GLOBULIN 2.5 1.9 - 3.7 g/dL (calc) [facility] ALBUMIN/GLOBULI N RATIO 1.7 1.0 - 2.5 (calc) [facility] BILIRUBIN TOTAL S/P/B 0.5 0.2 - 1.2 mg/dL [facility] ALKALINE PHOSPHATASE S/P/B 92 37 - 153 U/L [facility] AST 28 10 - 35 U/L [facility] ALT 29 6 - 29 U/L [facility] 04/26/2024 7:06 AM CDT 04/26/2024 7:07 AM CDT Narrative [facility] - 04/27/2024 7:50 AM CDT FASTING:YES FASTING: YES Resulting Agency Comment Performing Organization Information: ?Site ID: [id number] ?Name: [facility] Yol[facility] ?Address: [address] [address] ?Director: Shante Salvador MD us Kami Edmond PA-C LABORATORY Final Resu lt Performing Organization Address City/[facility]/ZIP Co de Phone Number [facility] [place] [address] [address], * (ABNORMAL) HEMOGLOBIN, GLYCOSYLATED (04/26/2024 7:06 AM CDT) HGB A1C 6.0(H) <5.7 % of total Hgb [facility] [place] Comment: For someone without known diabetes, [...] Performing Organization Information: ?Site ID: [id number] ?Name: [facility]ane[facility]ika[facility] ?Address: [address] [address] ?Director: Shante Salvador us Kami Edmond PA-C LABORATORY Final Resu lt [facility] [place] [id number] [place] [phone], documented in this encounter Visit Diagnoses Diagnosis Essential hypertension- Primary Unspecified essential hypertension Morbid (severe) obesity due to excess calories ([facility]) Type 2 diabetes mellitus with hyperglycemia, without long-term current use of insulin ([facility]) Generalized anxiety disorder Moderate episode of recurrent major depressive disorder ([facility]) NIRANJAN (obstructive sleep apnea) Obstructive sleep apnea (adult) (pediatric) Screening mammogram, encounter for documented in this encounter Additional Health Concerns Assessment Noted Time PHQ-9 Depression Total Score: 22 024 9:46 AM CDT documented as of this encounter Care Teams Nuclear Fuel Processing Technician Relationship Specialty Start Date End Date Kami Edmond PA-C [address] [place] [address]. [place] [address] PCP - General PHYSICIAN BELT CLEANER 02/05/21 documented as of this encounter
--- OUTSIDE RECORDS SUMMARY | 2024-06-23 15:10 | XMS_ITS | Encounter Summary ---
Author Organization [facility] Address [address] [place] [address]. [place], [place] [address] [place] [address] Care Team Providers Care Utility Systems Repairer Operator Name Role Phone Franny Dolan PA-C Primary Care Provider +1- [phone] Encounter Details Date Type Department Care Team (Latest Contact Info) Description 05/29/2023 Scan [facility] HEALTH INFO SRVCS Scanned, Doc Med Group Social History Tobacco Use Types Packs/Day Years Used Date Smoking Tobacco: Former Cigarettes Q uit: 1997 Smokeless Tobacco: Never Alcohol Use Standard Drinks/Week Comments Not Currently 0 (1 standard drink = 0.6 oz pur e alcohol) holidays only PHQ-2 Answer Date Recorded Patient Health Questionnaire-2 Score 1 01/03/2023 Comments No Sex and Gender Information Value Date Recorded Sex Assigned at Not on file Legal Sex Female 6:13 PM CDT Gender Identity Not on file Sexual Orientation Not on file documented as of this encounter Plan of Treatment Upcoming Encounters Date Type Department Care Team (Late st Contact Info) Description 11/07/2024 9:40 AM CDT Office Visit [facility] Family Medicine - [place] [address] [place] [phone] Franny Dolan PA-C [address] [place] [address] documented as of this encounter Visit Diagnoses Not on filedocumented in this encounter Additional Health Concerns Assessment Noted Time PHQ-9 Depression Total Score: 13 023 8:53 AM PROTOHISTORIAN documented as of this encounter Care Teams Utility Systems Repairer Operator Relationship Specialty Start Date End Date Franny Dolan PA-C [address] [place] [address] PCP - General PHYSICIAN SIDEWALK INSPECTOR 02/05/21 documented as of this encounter
--- OUTSIDE RECORDS SUMMARY | 2024-06-23 15:10 | XMS_ITS | Encounter Summary ---
Author Organization [facility] Address [address] [place] [address]. [place], [place] [address] [place] [address] Care Team Providers Care Prize Fighter Name Role Phone Kami Edmond PA-C Primary Care Provider +1- [phone] Reason for Referral * Imaging (Routine) - Closed Specialty Diagnoses / Procedures Referred By Michelle lozano Referred To Contact RADIOLOGY Diagnoses Elevated LFTs Procedures US ABD LIMITED Kami Edmond PA-C [address] [place] [address] Phone: tel: fax: Referral ID Status Reason Start Date Expiration Date Visits Re quested Visits Authorized [id number] Closed 01/30/2023 01/31/2024 1 1 Reason for Visit * Imaging (Routine) - Closed Specialty Diagnoses / Procedures Referred By Michelle lozano Referred To Contact RADIOLOGY Diagnoses Elevated LFTs Procedures US ABD LIMITED Kami Edmond PA-C [address] [place] [address] Phone: tel: fax: Referral ID Status Reason Start Date Expiration Date Visits Re quested Visits Authorized [id number] Closed 01/30/2023 01/31/2024 1 1 Encounter Details Date Type Department Care Team (Late st Contact Info) Description 04/20/2023 1:44 PM CDT - 04/20/2023 11:59 PM CDT Hospital Encounter [facility] [address] [place] [address] Kami Edmond PA-C [address] [place] [address] Discharge Disposition: Home or Self Care (Routine Discharge) Social History Tobacco Use Types Packs/Day Years [...] on file documented as of this encounter Medications at Time of Discharge acetaminophen CR 650 MG Tab CR 8 hr tablet Take 1 tablet (650 mg total) by mouth. clobetasol (TEMOVATE) 0.05 % ointment Apply topically 2 (two) times daily. 05/23/2022 fluticasone propionate 50 MCG/ACT nasal spray 2 sprays by Nasal route daily. glucosamine-chondroi tin 500-400 mg Tab tablet Take 1 tablet by mouth 3 (three) times daily. KRILL OIL OR Multiple Vitamin (MULTIVITAMIN) capsule Take 1 capsule by mouth daily. busPIRone (BUSPAR) 15 MG tabletIndications:Ge neralized anxiety disorder Take 1 tablet (15 mg total) by mouth 2 (two) times daily. 180 tablet 1 01/30/2023 4 cetirizine (ZYRTEC) 10 MG tabletIndications:Al lergies Take 1 tablet (10 mg total) by mouth daily. 90 tablet 3 02/14/2022 3 DULoxetine (CYMBALTA) 60 MG capsuleIndications:A nxiety,Moderate episode of recurrent major depressive disorder (CMS/HCC HHS/HCC) TAKE 1 CAPSULE(60 MG) BY MOUTH DAILY 90 capsule 1 07/04/2022 3 Fenofibrate 134 MG CapIndications:Mixed hyperlipidemia Take 1 capsule by mouth daily with breakfast. 90 capsule 1 01/30/2023 4 glipiZIDE XL (GLUCOTROL XL) 10 MG 24 hr tabletIndications:Ty pe 2 diabetes mellitus with hyperglycemia, without long-term current use of insulin ([facility] HHS/HCC) TAKE 1 TABLET BY MOUTH TWICE DAILY. DO NOT BREAK OR CRUSH TABLET 180 tablet 1 01/30/2023 4 hydroCHLOROthiazide (HYDRODIURIL) 25 MG tabletIndications:Es sential hypertension Take 1 tablet (25 mg total) by mouth every morning. 90 tablet 1 01/30/2023 3 levothyroxine (SYNTHROID) 100 MCG tabletIndications:Ac quired hypothyroidism Take 1 tablet (100 mcg total) by mouth every morning. 90 tablet 1 01/30/2023 3 losartan (COZAAR) 50 MG tabletIndications:Es sential hypertension Take 1 tablet (50 mg total) by mouth daily. 90 tablet 1 04/03/2023 4 metFORMIN ER (GLUCOPHAGE-XR) 500 MG 24 hr tabletIndications:Ty pe 2 diabetes mellitus with hyperglycemia, without long-term current use of insulin ([facility] HHS/HCC) TAKE 2 TABLETS EVERY DAY WITH BREAKFAST 180 tablet 1 04/17/2023 4 nystatin (MYCOSTATIN) powderIndications:Ye ast infection of the skin Apply topically 3 (three) times daily. 60 g 1 05/30/2022 4 semaglutide (OZEMPIC) 2 MG/3ML injection (PEN)Indications:Valentine betes Mellitus Inject 0.25 mg into the skin every 7 days. Indications: Diabetes 3 mL 1 03/09/2023 3 semaglutide (OZEMPIC) 2 MG/3ML injection (PEN)Indications:Valentine betes Mellitus Inject 0.5 mg into the skin every 7 days. Indications: Diabetes 3 mL 1 04/03/2023 4 documented as of this encounter Plan of Treatment Upcoming Encounters Date Type Department Care Team (Late st Contact Info) Description 11/07/2024 9:40 AM CDT Office Visit [facility] Family Medicine - [place] [place] [address] Kami Edmond PA-C [address] [place] [address] documented as of this encounter Procedures Procedure Name Priority Date/Time Associated Diagnosis Comments US ABD LIMITED Routine 04/20/2023 2:36 PM CDT Elevated LFTs documented in this encounter Results * US ABD LIMITED (04/20/2023 2:36 PM CDT) Anatomical Region Laterality Modality Abdomen Ultrasound 04/21/2023 11:4 9 AM CDT Impressions 04/21/2023 11:52 AM CDT =====IMPRESSION:===== 1. Findings of mild diffuse hepatic steatosis. No significant focal intrahepatic lesion. 2. Status post cholecystectomy, no biliary duct dilatation. Ordered By: KAMI EDMOND Interpreted By: Rashaun Crews MD, 04/21/2023 11:49 AM Narrative 04/21/2023 11:52 AM CDT EXAMINATION: Limited abdomen ultrasound: RUQ EXAM DATE/TIME: 04/20/2023 2:05 PM REASON FOR EXAM: ??elevated lfts, status post cholecystectomy ?? COMPARISON: None TECHNIQUE: An ultrasound examination of the RUQ was performed to assess grayscale appearance, color-flow characteristics and spectral doppler analysis. FINDINGS: Liver: There is mild diffuse increased liver echogenicity suggesting hepatic steatosis. No significant focal intrahepatic lesion. No gross abnormal nodular surface contour of the liver. Liver measures 17cm. in length. Pancreas: Obscured by bowel gas. Portal vein: Spectral analysis reveals normal hepatopedal flow. Gallbladder: Surgically absent ?? Common bile duct ??Suboptimally visualized due to overlying bowel gas. Common bile duct measures 0.8cm in diameter Right kidney: Small right renal cyst incidentally noted. This has a benign appearance and would not require any additional imaging evaluation. Other findings: No ascites. Procedure Note Rashaun Crews MD - 04/21/2023 EXAMINATION: Limited abdomen ultrasound: RUQ EXAM DATE/TIME: 04/20/2023 2:05 PM REASON FOR EXAM: elevated lfts, status post cholecystectomy COMPARISON: None TECHNIQUE: An ultrasound examination of the RUQ was performed to assessgrayscale appearance, color-flow characteristics and spectral doppleranalysis. FINDINGS: Liver: There is mild diffuse increased liver echogenicity suggestinghepatic steatosis. No significant focal intrahepatic lesion. No grossabnormal nodular surface contour of the liver. Liver measures 17cm. inlength. Pancreas: Obscured by bowel gas. Portal vein: Spectral analysis reveals normal hepatopedal flow. Gallbladder: Surgically absent Common bile duct Suboptimally visualized due to overlying bowel gas.Common bile duct measures 0.8cm in diameter Right kidney: Small right renal cyst incidentally noted. This has a benignappearance and would not require any additional imaging evaluation. Other findings: No ascites. =====IMPRESSION:===== 1. Findings of mild diffuse hepatic steatosis. No significant focalintrahepatic lesion. 2. Status post cholecystectomy, no biliary duct dilatation. Ordered By: KAMI EDMOND Interpreted By: Rashaun Crews MD, 04/21/2023 11:49 AM us Kami Edmond PA-C ULTRASOUND Final Resu lt documented in this encounter Visit Diagnoses Diagnosis Elevated LFTs Other abnormal blood chemistry documented in this encounter Additional Health Concerns Assessment Noted Time PHQ-9 Depression Total Score: 13 023 8:53 AM FIELD OPERATIONS COORDINATOR documented as of this encounter Care Teams Prize Fighter Relationship Specialty Start Date End Date Kami Edmond PA-C [address] [place] [address]. [place] [address] PCP - General PHYSICIAN FOLDER AND NOTCHER 02/05/21 documented as of this encounter
--- OUTSIDE RECORDS SUMMARY | 2024-06-23 15:10 | XMS_ITS | Encounter Summary ---
Author Organization [facility] Address [address] [place] [address]. [place], [place] [address] [place] [address] Care Team Providers Care Colorer Machine Name Role Phone Kami Edmond PA-C Primary Care Provider +1- [phone] Reason for Visit * Reason Onset Date Comments Medication Request 04/24/2023 Encounter Details Date Type Department Care Team (Late st Contact Info) Description 04/24/2023 Telephone [facility] Family Medicine - [employer] [address] [place] [address] Kami Edmond PA-C [address] [place] [address] Medication Request Social History Tobacco Use Types Packs/Day [...] as of this encounter Progress Notes * Lyndsey Steve - 04/24/2023 10:19 AM CDT .Refill request Kristal Bustos a patient of KAMI M MAYITO, PA-C requests a refill of cetirizine (ZYRTEC) 10 MG tablet 90day supply The patient would like this sent to the following pharmacy: [facility] - [place], [place] - [address] [facility] [address] [facility] [address] The next office visit: Next visit with KAMI EDMOND in FAMILY PRACTICE is on: 05/29/2023 in [facility] The last office visit: Last visit with KAMI EDMOND in FAMILY PRACTICE was on: 04/03/2023 in [place] [facility] documented in this encounter Plan of Treatment Upcoming Encounters Date Type Department Care Team (Late st Contact Info) Description 11/07/2024 9:40 AM CDT Office Visit [facility] Family Medicine - [address] [phone] Kami Edmond PA-C [address] [place] [address] documented as of this encounter Visit Diagnoses Diagnosis Allergies documented in this encounter Additional Health Concerns Assessment Noted Time PHQ-9 Depression Total Score: 13 023 8:53 AM COLD ROLL PACKER SHEET IRON documented as of this encounter Care Teams Colorer Machine Relationship Specialty Start Date End Date Kami Edmond PA-C [address] [place] [address] PCP - General PHYSICIAN MACHINE STACKER 02/05/21 documented as of this encounter
--- OUTSIDE RECORDS SUMMARY | 2024-06-23 15:10 | XMS_ITS | Encounter Summary ---
Author Organization [facility] Address [address] [place] [address]. [place], [place] [address] [place] [address] Care Team Providers Care Counterintelligence Specialist Name Role Phone Franny Dolan PA-C Primary Care Provider +1- [phone] Encounter Details Date Type Department Care Team (Latest Contact Info) Description 10/17/2023 Scan [facility] INFO SRVCS Scanned, Doc [...] Description 11/07/2024 9:40 AM CDT Office Visit [facility] Medical Group Family Medicine - [place] 100 [place] [phone] Franny Dolan PA-C 100 [place] [address] documented as of this encounter Visit Diagnoses Not on filedocumented in this encounter Additional Health Concerns Assessment Noted Time PHQ-9 Depression Total Score: 13 023 8:53 AM DRAW END HAND documented as of this encounter Care Teams Counterintelligence Specialist Relationship Specialty Start Date End Date Franny Dolan PA-C [address] [place] [address] PCP - General PHYSICIAN PERSONALIZED LIVING MANAGER 02/05/21 documented as of this encounter
--- OUTSIDE RECORDS SUMMARY | 2024-06-23 15:10 | XMS_ITS | Encounter Summary ---
Author Organization [facility] Address [address] [place] [address]. [place], [place] [address] [place] [address] Care Team Providers Care Switchboard Operator Name Role Phone Franny Dolan PA-C Primary Care Provider +1- [phone] Encounter Details Date Type Department Care Team (Latest Contact Info) Description 08/28/2023 Travel Social History Tobacco Use Types Packs/Day [...] Description 11/07/2024 9:40 AM CDT Office Visit [facility] Medical [facility] Family Medicine - [place] [address] [place] [phone] Franny Dolan PA-C [address] [place] [phone] documented as of this encounter Visit Diagnoses Not on filedocumented in this encounter Additional Health Concerns Assessment Noted Time PHQ-9 Depression Total Score: 13 023 8:53 AM DIRECTOR PHARMACEUTICAL documented as of this encounter Care Teams Switchboard Operator Relationship Specialty Start Date End Date Franny Dolan PA-C [address] [place] [address] PCP - General PHYSICIAN CHAIR MENDER 02/05/21 documented as of this encounter
--- OUTSIDE RECORDS SUMMARY | 2024-06-23 15:10 | XMS_ITS | Encounter Summary ---
Author Organization [facility] Address [address] [place] [address]. [place], [place] [address] [place] [address] Care Team Providers Care Fur Puller Name Role Phone Franny Dolan PA-C Primary Care Provider +1- [phone] Encounter Details Date Type Department Care Team (Latest Contact Info) Description 10/31/2023 Scan [facility] INFO SRVCS Scanned, Doc [...] Description 11/07/2024 9:40 AM CDT Office Visit [facility] Medical Group Family Medicine - [place] 100 [place] [phone] Franny Dolan PA-C 100 [place] [address] documented as of this encounter Visit Diagnoses Not on filedocumented in this encounter Additional Health Concerns Assessment Noted Time PHQ-9 Depression Total Score: 13 023 8:53 AM VP AD SALES WEST documented as of this encounter Care Teams Fur Puller Relationship Specialty Start Date End Date Franny Dolan PA-C [address] [place] [address] PCP - General PHYSICIAN CREW SCHEDULER 02/05/21 documented as of this encounter
--- OUTSIDE RECORDS SUMMARY | 2024-06-23 15:10 | XMS_ITS | Encounter Summary ---
Author Organization [facility] Address [address] [place] [address]. [place] [address] [place] [address] Care Team Providers Care First Helper Name Role Phone Kami Edmond PA-C Primary Care Provider +1- [phone] Reason for Visit * Reason Onset Date Comments Refill Request 01/01/2024 Encounter Details Date Type Department Care Team (Late st Contact Info) Description 01/01/2024 Telephone [facility] Medical Group Family Medicine - [place] 100 [place] [address] Kami Edmond PA-C 100 [place] [address] Refill Request Social History Tobacco [...] as of this encounter Progress Notes * Kelsey De La Paz - 01/01/2024 10:24 AM CDT Medication and strength: Glipizide 10 mg Fenofibrate 134 mg [facility] Call back #: [phone] Last office visit at this office: Last visit with AKMI EDMOND in FAMILY PRACTICE was on: 11/28/2023 in [facility] Future appointment scheduled: Future Appointments Date Time Provider Department Center 01/29/2024 10:20 AM Kami Edmond PA-C [facility] documented in this encounter Plan of Treatment Upcoming Encounters Date Type Department Care Team (Late st Contact Info) Description 11/07/2024 9:40 AM CDT Office Visit [facility] Medical Group Family Medicine - [place] [phone] Kami Edmond PA-C [address] [place] [address] documented as of this encounter Visit Diagnoses Diagnosis Type 2 diabetes mellitus with hyperglycemia, without long-term current use of insulin ([facility])- Primary Mixed hyperlipidemia documented in this encounter Additional Health Concerns Assessment Noted Time PHQ-9 Depression Total Score: 22 024 9:46 AM CDT documented as of this encounter Care Teams First Helper Relationship Specialty Start Date End Date Kami Edmond PA-C [address] [place] [address] [phone] PCP - General PHYSICIAN STENO TYPIST 02/05/21 documented as of this encounter
--- OUTSIDE RECORDS SUMMARY | 2024-06-23 15:10 | XMS_ITS | Encounter Summary ---
Author Organization [facility] Address [address] [place] [address]. [place], [place] [address] [place] [address] Care Team Providers Care Conference Planning Manager Name Role Phone Franny Dolan PA-C Primary Care Provider +1- [phone] Encounter Details Date Type Department Care Team (Latest Contact Info) Description 10/16/2023 Scan [facility] INFO SRVCS Scanned, Doc [...] Description 11/07/2024 9:40 AM CDT Office Visit [facility] Medical Group Family Medicine - [place] 100 [place] [phone] Franny Dolan PA-C 100 [place] [address] documented as of this encounter Visit Diagnoses Not on filedocumented in this encounter Additional Health Concerns Assessment Noted Time PHQ-9 Depression Total Score: 13 023 8:53 AM CRUDE OIL TREATER documented as of this encounter Care Teams Conference Planning Manager Relationship Specialty Start Date End Date Franny Dolan PA-C [address] [place] [address] PCP - General PHYSICIAN WORK DISTRIBUTOR 02/05/21 documented as of this encounter
--- OUTSIDE RECORDS SUMMARY | 2024-06-23 15:10 | XMS_ITS | Encounter Summary ---
Author Organization [facility] Address [address] [place] [address]. [place], [place] [address] [place] [address] Care Team Providers Care Industrial Controller Name Role Phone Franny Dolan PA-C Primary Care Provider +1- [phone] Encounter Details Date Type Department Care Team (Latest Contact Info) Description 11/02/2023 Scan [facility] INFO SRVCS Scanned, Doc [...] Description 11/07/2024 9:40 AM CDT Office Visit [facility] Medical Group Family Medicine - [place] 100 [place] [phone] Franny Dolan PA-C 100 [place] [address] documented as of this encounter Visit Diagnoses Not on filedocumented in this encounter Additional Health Concerns Assessment Noted Time PHQ-9 Depression Total Score: 13 023 8:53 AM ALL SOURCE COLLECTION MANAGER documented as of this encounter Care Teams Industrial Controller Relationship Specialty Start Date End Date Franny Dolan PA-C [address] [place] [address] PCP - General PHYSICIAN PUBLISHING SPECIALIST 02/05/21 documented as of this encounter
--- OUTSIDE RECORDS SUMMARY | 2024-06-23 15:10 | XMS_ITS | Encounter Summary ---
Author Organization [facility] Address [address] [place] [address]. [place] [address] [place] [address] Care Team Providers Care Machining Engineer Name Role Phone Kami Edmond PA-C Primary Care Provider +1- [phone] Reason for Visit * Reason Onset Date Comments Medication Problem 06/30/2023 Encounter Details Date Type Department Care Team (Late st Contact Info) Description 06/30/2023 Telephone [facility] Medical Group Family Medicine - [place] 100 [place] [address] Kami Edmond PA-C 100 [place] [address] Medication Problem Social History Tobacco Use Types Packs/Day Years [...] as of this encounter Progress Notes * Ann Armstrong MA - 06/30/2023 2:39 PM CST Rx sent POSTING SUPERVISOR * Lyndsey Steve - 06/30/2023 10:57 AM CST Refill request Kristal Bustos a patient of KAMI EDMOND PA-C requests a refill of DULoxetine (CYMBALTA) 60 MG capsule 90 day supply The patient would like this sent to the following pharmacy: [facility] - [place] [address] [facility] [address] The next office visit: Next visit with KAMI EDMOND in FAMILY PRACTICE is on: 08/28/2023 in [facility] The last office visit: Last visit with KAMI EDMOND in FAMILY PRACTICE [facility] POST[facility] SUPERVISOR POSTING SUPERVISOR documented in this encounter Plan of Treatment Upcoming Encounters Date Type Department Care Team (Late st Contact Info) Description 11/07/2024 9:40 AM CDT Office Visit [facility] Medical Group Family Medicine - [address] [phone] Kami Edmond PA-C [address] [place] [address] documented as of this encounter Visit Diagnoses Diagnosis Moderate episode of recurrent major depressive disorder ([facility]) Generalized anxiety disorder documented in this encounter Additional Health Concerns Assessment Noted Time PHQ-9 Depression Total Score: 13 023 8:53 AM BILLPOSTING SUPERVISOR documented as of this encounter Care Teams Machining Engineer Relationship Specialty Start Date End Date Kami Edmond PA-C [address] [place] [address] PCP - General PHYSICIAN FILING MACHINE OPERATOR 02/05/21 documented as of this encounter
--- OUTSIDE RECORDS SUMMARY | 2024-06-23 15:10 | XMS_ITS | Encounter Summary ---
Author Organization [facility] Address [address] [place] [address]. [place] [address] [place] [address] Care Team Providers Care Shipping Clerk Name Role Phone Kami Edmond PA-C Primary Care Provider +1- [phone] Reason for Visit * Reason Onset Date Comments Medication Request 10/18/2023 Encounter Details Date Type Department Care Team (Late st Contact Info) Description 10/18/2023 Telephone [facility] Medical Group Family Medicine - [place] 100 [place] [address] Kami Edmond PA-C 100 [place] [address] Medication Request Social History Tobacco [...] as of this encounter Progress Notes * Kami Edmond PA-C - 10/18/2023 4:39 PM CDT Scripts signed * Ann Armstrong MA - 10/18/2023 9:19 AM CDT RX's pended for physician approval * Lyndsey Steve - 10/18/2023 8:53 AM CDT .Refill request Kristal Bustos a patient of KAMI EDMOND PA-C requests a refill of levothyroxine (SYNTHROID) 100 MCG tablet 90 day supply losartan (COZAAR) 50 MG tablet 90 day suuply The patient would like this sent to the following pharmacy: [facility] - [address] [address] The next office visit: Next visit with KAMI EDMOND in FAMILY PRACTICE is on: 11/28/2023 in [facility] The last office visit: Last visit with KAMI EDMOND in FAMILY PRACTICE was on: 08/28/2023 in [facility] documented in this encounter Plan of Treatment Upcoming Encounters Date Type Department Care Team (Late st Contact Info) Description 11/07/2024 9:40 AM CDT Office Visit [facility] Medical Group Family Medicine - [place] [address] Kami Edmond PA-C [address] [place] [address] documented as of this encounter Visit Diagnoses Diagnosis Acquired hypothyroidism Unspecified hypothyroidism Essential hypertension Unspecified essential hypertension documented in this encounter Additional Health Concerns Assessment Noted Time PHQ-9 Depression Total Score: 13 023 8:53 AM SCORER HELPER documented as of this encounter Care Teams Shipping Clerk Relationship Specialty Start Date End Date Kami Edmond PA-C [address] [place] [address] PCP - General PHYSICIAN ASSISTANT CONTROLLER 02/05/21 documented as of this encounter
--- OUTSIDE RECORDS SUMMARY | 2024-06-23 15:10 | XMS_ITS | Encounter Summary ---
Author Organization [facility] Address [address] [place] [address]. [place] [address] [place] [address] Care Team Providers Care Supervisor Briar Shop Name Role Phone Kami Edmond PA-C Primary Care Provider +1- [phone] Reason for Visit * Reason Onset Date Comments Refill Request 11/07/2023 Encounter Details Date Type Department Care Team (Late st Contact Info) Description 11/07/2023 Telephone [facility] Medical Group Family Medicine - [place] 100 [place] [address] Kami Edmond PA-C 100 [place] [address] Refill Request Social History Tobacco [...] Notes * Kelsey De La Paz - 11/07/2023 10:01 AM CDT Medication and strength: buspirone 15 mg [facility] Call back #: [phone] Pt said [facility] and had to be initiated from the provider office Last office visit at this office: Last visit with KAMI EDMOND in FAMILY PRACTICE was on: 08/28/2023 in [facility] Future appointment scheduled: Future Appointments Date Time Provider Department Center 11/28/2023 9:40 AM Kami Edmond PA-C [facility] documented in this encounter Plan of Treatment Upcoming Encounters Date Type Department Care Team (Late st Contact Info) Description 11/07/2024 9:40 AM CDT Office Visit [facility] Medical Group Family Medicine - [place] [phone] Kami Edmond PA-C [address] [place] [address] documented as of this encounter Visit Diagnoses Diagnosis Generalized anxiety disorder documented in this encounter Additional Health Concerns Assessment Noted Time PHQ-9 Depression Total Score: 13 023 8:53 AM ACCOUNT DEVELOPMENT SPECIALIST documented as of this encounter Care Teams Supervisor Briar Shop Relationship Specialty Start Date End Date Kami Edmond PA-C [address] [place] [address] PCP - General PHYSICIAN COLLEGE ARCHIVIST 02/05/21 documented as of this encounter
--- OUTSIDE RECORDS SUMMARY | 2024-06-23 15:10 | XMS_ITS | Encounter Summary ---
Author Organization [facility] Address [address] [place] [address]. [place], [place] [address] [place] [address] Care Team Providers Care Bridge Contractor Name Role Phone Franny Dolan PA-C Primary Care Provider +1- [phone] Encounter Details Date Type Department Care Team (Latest Contact Info) Description 04/18/2023 Scan [facility] INFO SRVCS Scanned, Doc [...] Description 11/07/2024 9:40 AM CDT Office Visit [facility] Medical Group Family Medicine - [place] 100 [place] [phone] Franny Dolan PA-C 100 [place] [address] documented as of this encounter Visit Diagnoses Not on filedocumented in this encounter Additional Health Concerns Assessment Noted Time PHQ-9 Depression Total Score: 13 023 8:53 AM GALVANIZER ZINC documented as of this encounter Care Teams Bridge Contractor Relationship Specialty Start Date End Date Franny Dolan PA-C [address] [place] [address] PCP - General PHYSICIAN AIR BRAKE ADJUSTER 02/05/21 documented as of this encounter
--- OUTSIDE RECORDS SUMMARY | 2024-06-23 15:10 | XMS_ITS | Encounter Summary ---
Author Organization [facility] Address [address] [place] [address]. [place] [address] [place] [address] Care Team Providers Care Full Roll Inspector Name Role Phone Kami Edmond PA-C Primary Care Provider +1- [phone] Reason for Visit * Reason Comments Hypertension Hyperlipidemia Diabetes Pt presents for foll ow up with labs Encounter Details Date Type Department Care Team (Late st Contact Info) Description 11/28/2023 9:40 AM CDT Office Visit [facility] Medical Group Family Medicine - [place] [phone] Kami Edmond PA-C [address] [place] [address] [phone] Hypertension; Hyperlipidemia; Diabetes (Pt presents for follow up with labs ) Social History Tobacco Use Types Packs/Day [...] Sign Reading Time Taken Comments Blood Pressure 116/67 11/28/2023 9:39 AM CDT Pulse 62 11/28/2023 9:39 AM CDT Temperature 36.3 ??C (97.4 ??F) 11/28/2023 9:39 AM CD T Respiratory Rate - - Oxygen Saturation 98% 11/28/2023 9:39 AM CDT Inhaled Oxygen Concentration - - Weight 121.3 kg (267 lb 6.4 oz) 11/28/2023 9:39 AM CDT Height - - Body Mass Index 45.9 02/13/2023 10:22 AM CDT documented in this encounter Progress Notes * Kami Edmond PA-C - 11/28/2023 9:40 AM CDT Reason for Visit: Hypertension, Hyperlipidemia, and Diabetes (Pt presents for follow up with labs ) History of Present Illness: Patient here for follow up diabetes/HTN. Takes medications daily. Tries to follow low carb diet andwalks. Checks blood sugars daily. Fasting blood sugars usually under 120. Last HgbA1C was 5.9. Lasteye exam was 04/27/23. Feels gladys is helping the depression and anxiety some, but she still has a lot of depression and down days. Denies any anxiety or suicide thoughts on the medication. Sleeps and eats well. She is seeing concrete pipe plant supervisor. Denies any other concerns. ROS: Review of Systems Constitutional: Negative for fever. Respiratory: Negative for shortness of breath. Cardiovascular: Negative for chest pain. Gastrointestinal: Negative for abdominal pain, blood in stool, constipation, diarrhea, melena, nausea and vomiting. Genitourinary: Negative for dysuria, frequency and hematuria. Psychiatric/Behavioral: Positive for depression. Negative for self-injury and suicidal ideas. The patient is not nervous/anxious. All other systems reviewed and are negative. Medications: Current Outpatient Medications: acetaminophen CR 650 MG Tab CR 8 hr tablet, Take 1 tablet (650 mg total) by mouth., Disp: , Rfl: busPIRone (BUSPAR) 15 MG tablet, Take 1 tablet (15 mg total) by mouth 2 (two) times daily., Disp: 180 tablet, Rfl: 1 cetirizine (ZYRTEC) 10 MG tablet, TAKE 1 TABLET BY MOUTH EVERY DAY, Disp: 90 tablet, Rfl: 3 clobetasol (TEMOVATE) [...] Do not break or crush tablet, Disp: , Rfl: glucosamine-chondroitin 500-400 mg Tab tablet, Take 1 [...] Disp: 60 g, Rfl: 1 semaglutide (OZEMPIC) 1 mg/dose injection (PEN), Inject 1 mg into the skin once a week., Disp: 9 mL, Rfl: 1 semaglutide (OZEMPIC) 2 mg/dose injection (PEN), Inject 2 mg into the skin once a week. Indications: Diabetes, Disp: 9 mL, Rfl: 0 Review of patient's allergies indicates: Allergen Reactions Pollen Extract Runny Nose Dust Mite Extract Runny Nose Molds & Smuts Runny Nose Past Medical History: Diagnosis Date Chronic kidney disease Depression Diabetes mellitus ([facility]/HCC) Disease of thyroid gland Hypertension Polycythemia vera ([facility]HS/[facility]) Past Surgical History: Procedure Laterality Date BACK SURGERY CATARACT EXTRACTION Bilateral COLONOSCOPY STOMA DX INCLUDING COLLJ SPEC SPX FOOT FRACTURE SURGERY 1998 Metatarsal HC KIT BLADDER SLING/SUSPENSION 2014 HYSTERECTOMY 2001 LAPAROSCOPIC CHOLECYSTECTOMY 2003 Social History Socioeconomic History Marital status: Tobacco Use Smoking status: Former Current packs/day: 0.00 Types: Cigarettes Quit date: 1997 Years since quittin.4 Smokeless tobacco: Never Vaping Use Vaping status: [...] Mood and Affect: Mood normal. Filed Vitals: 11/28/23 0939 BP: 116/67 Pulse: 62 Temp: 97.4 ??F (36.3 ??C) TempSrc: Temporal SpO2: 98% Weight: 121.3 kg (267 lb 6.4 oz) Diagnoses/Impression: 1. Essential hypertension 2. Type 2 diabetes mellitus with hyperglycemia, without long-term current use of insulin ([facility]) semaglutide (OZEMPIC) 2 mg/dose injection (PEN) 3. Morbid (severe) obesity due to excess calories ([facility]) semaglutide (OZEMPIC) 2 mg/doseinjection (PEN) 4. Generalized anxiety disorder DULoxetine (CYMBALTA) 30 MG capsule 5. Moderate episode of recurrent major depressive disorder (CMS/HCC HHS/HCC) DULoxetine (CYMBALTA) 30 MG capsule Recommendations and Plan: Discussed labs with patient. She will decrease metformin to one daily for DM and increase ozempic to 2 mg weekly for DM and obesity. Continue same meds for HTN. Discussed diet and exercise for obesity. She will increase cymbalta to 90 mg taking a 30 mg and a 60 mg pill together for anxiety and depression. Will follow up in 2 months. Orders Placed This Encounter metFORMIN ER (GLUCOPHAGE-XR) 500 MG 24 hr tablet DULoxetine (CYMBALTA) 30 MG capsule semaglutide (OZEMPIC) 2 mg/dose injection (PEN) Reviewed and updated this visit by provider: Tobacco Allergies Meds Problems Med Hx Surg Hx Fam Hx KAMI EDMOND PA-C Referring Provider: No ref. provider found PCP: KAMI EDMOND PA-C documented in this encounter Plan of Treatment Upcoming Encounters Date Type Department Care Team (Late st Contact Info) Description 11/07/2024 9:40 AM CDT Office Visit [facility] Medical Group Family Medicine - [place] [phone] Kami Edmond PA-C [address] [place] [address] documented as of this encounter Visit Diagnoses Diagnosis Essential hypertension- Primary Unspecified essential hypertension Type 2 diabetes mellitus with hyperglycemia, without long-term current use of insulin (CMS/HCC HHS/HCC) Morbid (severe) obesity due to excess calories (CMS/HCC HHS/HCC) Generalized anxiety disorder Moderate episode of recurrent major depressive disorder (CMS/[facility] HHS/HCC) documented in this encounter Additional Health Concerns Assessment Noted Time PHQ-9 Depression Total Score: 22 024 9:46 AM CDT documented as of this encounter Care Teams Full Roll Inspector Relationship Specialty Start Date End Date Kami Edmond PA-C [address] [place] [address] PCP - General PHYSICIAN GLOBAL HEAD ADVERTISER SOLUTIONS 02/05/21 documented as of this encounter
--- OUTSIDE RECORDS SUMMARY | 2024-06-23 15:10 | XMS_ITS | Encounter Summary ---
Author Organization [facility] Address [address] [place] [address]. [place], [place] [address] [place] [address] Care Team Providers Care Portrait Studio Photographer Name Role Phone Franny Dolan PA-C Primary Care Provider +1- [phone] Encounter Details Date Type Department Care Team (Latest Contact Info) Description 05/29/2023 Travel Social History Tobacco Use Types Packs/Day [...] Description 11/07/2024 9:40 AM CDT Office Visit [facility] Medical Group Family Medicine - [place] [address] [place] [phone] Franny Dolan PA-C [address] [place] [address] [phone] documented as of this encounter Visit Diagnoses Not on filedocumented in this encounter Additional Health Concerns Assessment Noted Time PHQ-9 Depression Total Score: 13 023 8:53 AM LINK TRAINER OPERATOR documented as of this encounter Care Teams Portrait Studio Photographer Relationship Specialty Start Date End Date Franny Dolan PA-C [address] [place] [address] PCP - General PHYSICIAN MICRO PHOTOGRAPHER 02/05/21 documented as of this encounter
--- OUTSIDE RECORDS SUMMARY | 2024-06-23 15:10 | XMS_ITS | Encounter Summary ---
Author Organization [facility] Address [address] [place] [address]. [place], [place] [id number] [place] [address] Care Team Providers Care Cone Examiner Name Role Phone Kami Edmond PA-C Primary Care Provider +1- [phone] Reason for Visit * Reason Onset Date Comments Medication Request 03/09/2023 Encounter Details Date Type Department Care Team (Late st Contact Info) Description 03/09/2023 Telephone [facility] Medical [facility] Family Medicine - [place] [address] [place] [address] Kami Edmond PA-C 100 [place] [address] Medication Request Social History Tobacco [...] encounter Progress Notes * Lyndsey Steve - 03/09/2023 11:26 AM CDT .Refill request Kristal Bustos a patient of KAMI M MAYITO, PA-C requests a refill of semaglutide (OZEMPIC) 2 MG/3ML injection (PEN) PATIENT IS OUT TMRO The patient would like this sent to the following pharmacy: [facility] - [place], [place] - [address] [facility] [address] The next office visit: Next visit with KAMI EDMOND in FAMILY PRACTICE is on: 04/03/2023 in [facility] The last office visit: Last visit with KAMI EDMOND in FAMILY PRACTICE was on: 01/30/2023 in [facility] documented in this encounter Plan of Treatment Upcoming Encounters Date Type Department Care Team (Late st Contact Info) Description 11/07/2024 9:40 AM CDT Office Visit [facility] Medical Group Family Medicine - [place] [phone] Kami Edmond PA-C [address] [place] [address] documented as of this encounter Visit Diagnoses Diagnosis Type 2 diabetes mellitus with hyperglycemia, without long-term current use of insulin ([facility]) documented in this encounter Additional Health Concerns Assessment Noted Time PHQ-9 Depression Total Score: 13 023 8:53 AM LOOM CLEANER documented as of this encounter Care Teams Cone Examiner Relationship Specialty Start Date End Date Kami Edmond PA-C [address] [place] [id number] PCP - General PHYSICIAN BRAILLE TYPIST 02/05/21 documented as of this encounter
--- OUTSIDE RECORDS SUMMARY | 2024-06-23 15:10 | XMS_ITS | Encounter Summary ---
Author Organization [facility] Address [address] [place] [address]. [place], [place] [address] [place] [address] Care Team Providers Care Tack Coverer Name Role Phone Franny Dolan PA-C Primary Care Provider +1- [phone] Encounter Details Date Type Department Care Team (Latest Contact Info) Description 08/17/2023 Scan [facility] INFO SRVCS Scanned, Doc [...] Description 11/07/2024 9:40 AM CDT Office Visit [facility] Medical [facility] Family Medicine - [place] 100 [place] [phone] Franny Dolan PA-C 100 [place] [address] documented as of this encounter Visit Diagnoses Not on filedocumented in this encounter Additional Health Concerns Assessment Noted Time PHQ-9 Depression Total Score: 13 023 8:53 AM CURRENCY EXCHANGE SPECIALIST documented as of this encounter Care Teams Tack Coverer Relationship Specialty Start Date End Date Franny Dolan PA-C [address] [place] [address] PCP - General PHYSICIAN PLANE TENDER 02/05/21 documented as of this encounter
--- OUTSIDE RECORDS SUMMARY | 2024-06-23 15:10 | XMS_ITS | Encounter Summary ---
Author Organization [facility] Address [address] [place] [address]. [place] [address] [place] [address] Care Team Providers Care Account Review Specialist Name Role Phone Franny Dolan PA-C Primary Care Provider +1- [phone] Reason for Visit * Reason Comments Procedure (SCAN) Encounter Details Date Type Department Care Team (Late Contact Info) Description 10/23/2023 Scan HEALTH INFO SRVCS Scanned, Doc Med Group Procedure (SCAN) Social History Tobacco Use Types Packs/Day [...] Description 11/07/2024 9:40 AM CDT Office Visit [facility] Medical Group Family Medicine - [place] [address] [place] [phone] Franny Dolan PA-C [address] [place] [address] documented as of this encounter Procedures Procedure Name Priority Date/Time Associated Diagnosis Comments PROCEDURE GENERIC (SCAN ORDER) 10/23/2023 documented in this encounter Results * PROCEDURE GENERIC (SCAN ORDER) (10/23/2023) 10/23/2023 us Doc Med Group Scanned SCANNING Final Resu lt documented in this encounter Visit Diagnoses Not on filedocumented in this encounter Additional Health Concerns Assessment Noted Time PHQ-9 Depression Total Score: 13 023 8:53 AM GEOSPATIAL TECHNOLOGIST documented as of this encounter Care Teams Account Review Specialist Relationship Specialty Start Date End Date Franny Dolan PA-C [address] [place] [id number] PCP - General PHYSICIAN CCTV TECHNICIAN 02/05/21 documented as of this encounter
--- OUTSIDE RECORDS SUMMARY | 2024-06-23 15:10 | XMS_ITS | Encounter Summary ---
Author Organization [facility] Address [address] [place] [address]. [place] [address] [place] [address] Care Team Providers Care Applications Packager Name Role Phone Franny Dolan PA-C Primary Care Provider +1- [phone] Reason for Visit * Reason Comments Dilated Eye Exam (SCAN) Encounter Details Date Type Department Care Team (Late Contact Info) Description 04/27/2023 Scan HEALTH INFO SRVCS Scanned, Doc Med Group Dilated Eye Exam (SCAN) Social History Tobacco Use Types Packs/Day [...] Description 11/07/2024 9:40 AM CDT Office Visit [facility] Medical [facility] Family Medicine - [place] 100 [place] [phone] Franny Dolan PA-C 100 [place] [address] documented as of this encounter Procedures Procedure Name Priority Date/Time Associated Diagnosis Comments DIABETIC RETINOPATHY EXAM (NEGATIVE)(SCAN ORDER) Routine 04/27/2023 documented in this encounter Results * DIABETIC RETINOPATHY EXAM (NEGATIVE)(SCAN) (04/27/2023) us Doc Med Group Scanned SCANNING Final Resu lt [facility] documented in this encounter Visit Diagnoses Not on filedocumented in this encounter Additional Health Concerns Assessment Noted Time PHQ-9 Depression Total Score: 13 023 8:53 AM HOT BILLET SHEAR OPERATOR documented as of this encounter Care Teams Applications Packager Relationship Specialty Start Date End Date Franny Doaln PA-C [address] [place] [address] PCP - General PHYSICIAN PATENT LEGAL ASSISTANT 02/05/21 documented as of this encounter
--- OUTSIDE RECORDS SUMMARY | 2024-06-23 15:10 | XMS_ITS | Encounter Summary ---
Author Organization [facility] Address [address] [place] [address]. [place], [place] [address] [place] [address] Care Team Providers Care K9 Handler Name Role Phone Franny Dolan PA-C Primary Care Provider +1- [phone] Encounter Details Date Type Department Care Team (Latest Contact Info) Description 10/10/2023 Scan [facility] HEALTH INFO SRVCS Scanned, Doc [...] 9:40 AM CDT Office Visit [facility] Medical [facility] Family Medicine - [place] [address] [place] [phone] Franny Dolan PA-C [address] [place] [address] documented as of this encounter Visit Diagnoses Not on filedocumented in this encounter Additional Health Concerns Assessment Noted Time PHQ-9 Depression Total Score: 13 023 8:53 AM LIME HIDE INSPECTOR documented as of this encounter Care Teams K9 Handler Relationship Specialty Start Date End Date Franny Dolan PA-C [address] [place] [address] PCP - General PHYSICIAN BREADMAN 02/05/21 documented as of this encounter
--- OUTSIDE RECORDS SUMMARY | 2024-06-23 15:10 | XMS_ITS | Encounter Summary ---
Author Organization [facility] Address [address] [place] [address]. [place] [address] [place] [address] Care Team Providers Care Plant Utilities Engineer Name Role Phone Franny Dolan PA-C Primary Care Provider +1- [phone] Reason for Visit * Reason Comments Image (SCAN) Encounter Details Date Type Department Care Team (Latest Contact Info) Description 02/17/2023 Scan HEALTH INFO SRVCS Scanned, Doc Med Group Image (SCAN) Social History Tobacco Use Types Packs/Day [...] Description 11/07/2024 9:40 AM CDT Office Visit [facility] Medical Group Family Medicine - [place] 100 [place] [phone] Franny Dolan PA-C 100 [place] [address] documented as of this encounter Procedures Procedure Name Priority Date/Time Associated Diagnosis Comments ULTRASOUND GENERIC (SCAN ORDER) Routine 02/17/2023 documented in this encounter Results * ULTRASOUND (02/17/2023) Anatomical Region Laterality Modality Other us Doc Med Group Scanned SCANNING Final Resu lt documented in this encounter Visit Diagnoses Not on filedocumented in this encounter Additional Health Concerns Assessment Noted Time PHQ-9 Depression Total Score: 13 023 8:53 AM GRAVEL WHEELER documented as of this encounter Care Teams Plant Utilities Engineer Relationship Specialty Start Date End Date Franny Dolan PA-C [address] [place] [address] PCP - General PHYSICIAN KENNEL HELPER 02/05/21 documented as of this encounter
--- OUTSIDE RECORDS SUMMARY | 2024-06-23 15:10 | XMS_ITS | Encounter Summary ---
Author Organization [facility] Address [address] [place] [address]. [place], [place] [address] [place] [address] Care Team Providers Care Billet Cutter Name Role Phone Franny Dolan PA-C Primary Care Provider +1- [phone] Encounter Details Date Type Department Care Team (Latest Contact Info) Description 11/28/2023 Travel Social History Tobacco Use Types Packs/Day [...] Description 11/07/2024 9:40 AM CDT Office Visit [facility] Medical Group Family Medicine - [place] [address] [place] [phone] Franny Dolan PA-C [address] [place] [phone] documented as of this encounter Visit Diagnoses Not on filedocumented in this encounter Additional Health Concerns Assessment Noted Time PHQ-9 Depression Total Score: 22 024 9:46 AM CDT documented as of this encounter Care Teams Billet Cutter Relationship Specialty Start Date End Date Franny Dolan PA-C [address] [place] [address] PCP - General PHYSICIAN CUTTING MACHINE OPERATOR 02/05/21 documented as of this encounter
--- OUTSIDE RECORDS SUMMARY | 2024-06-23 15:10 | XMS_ITS | Encounter Summary ---
Author Organization [facility] Address [address] [place] [address]. [place], [place] [id number] [place] [address] Care Team Providers Care Railroad Purchasing Agent Name Role Phone Kami Edmond PA-C Primary Care Provider +1- [phone] Reason for Visit * Reason Comments Diabetes Hypertension Encounter Details Date Type Department Care Team (Late st Contact Info) Description 05/29/2023 10:00 AM RADIUS CORNER MACHINE OPERATOR Office Visit [facility] Family Medicine - [place] [address] [place] [phone] Kami Edmond PA-C [address] [place] [phone] Diabetes; Hypertension Social History Tobacco Use Types Packs/Day Years [...] Sign Reading Time Taken Comments Blood Pressure 135/80 05/29/2023 10:24 AM RADIUS CORNER MACHINE OPERATOR Pulse 61 05/29/2023 9:54 AM RADIUS CORNER MACHINE OPERATOR Temperature 36.3 ??C (97.4 ??F) 05/29/2023 9:54 AM CS T Respiratory Rate - - Oxygen Saturation 98% 05/29/2023 9:54 AM RADIUS CORNER MACHINE OPERATOR Inhaled Oxygen Concentration - - Weight 124.5 kg (274 lb 6.4 oz) 05/29/2023 9:54 AM RADIUS CORNER MACHINE OPERATOR Height - - Body Mass Index 47.1 02/13/2023 10:22 AM CDT documented in this encounter Progress Notes * Kami Edmond PA-C - 05/29/2023 10:00 AM CST Reason for Visit: Diabetes and Hypertension History of Present Illness: Patient here for follow up diabetes/HTN. Takes medications daily. Tries to follow low carb diet andwalks sometimes. Checks blood sugars daily. Fasting blood sugars usually 100-150. Last HgbA1C was 6.1. Last eye exam was 04/27/23. She is scheduled for cataracts surgery on 07/05/23 and needs clearanceform completed. She doesn't take blood thinners and is former smoker. She doesn't have CP or SOB and doesn't see rn postpartum or sweat band separator for any chronic heart or lung conditions. Feels cymbaltais helping the depression and anxiety. Denies any crying episodes, depressive mood, anxiety or suicide thoughts on the medication. Sleeps and eats well. 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 She is seeing television announcer for it. ROS: Review of Systems Constitutional: Negative for [...] , Rfl: DULoxetine (CYMBALTA) 60 MG capsule, Take 1 capsule (60 mg total) by mouth daily., Disp: 30 capsule, Rfl: 0 Fenofibrate 134 MG Cap, Take 1 capsule by mouth daily with breakfast., Disp: 90 capsule, Rfl: 1 fluticasone propionate 50 MCG/ACT nasal spray, 2 sprays by Nasal route daily., Disp: , Rfl: glipiZIDE XL (GLUCOTROL XL) 10 MG 24 hr tablet, TAKE 1 TABLET BY MOUTH TWICE DAILY. DO NOT BREAK ORCRUSH TABLET, Disp: 180 tablet, Rfl: 1 glucosamine-chondroitin 500-400 mg Tab [...] every morning., Disp: 90 tablet, Rfl: 1 losartan (COZAAR) 50 MG tablet, Take 1 tablet (50 mg total) by mouth daily., Disp: 90 tablet, Rfl: 1 metFORMIN ER (GLUCOPHAGE-XR) 500 MG 24 hr tablet, TAKE 2 TABLETS EVERY DAY WITH BREAKFAST, Disp: 180 tablet, Rfl: 1 Multiple Vitamin (MULTIVITAMIN) capsule, Take 1 capsule by mouth daily., Disp: , Rfl: nystatin (MYCOSTATIN) powder, Apply topically 3 (three) times daily., Disp: 60 g, Rfl: 1 semaglutide (OZEMPIC) 2 MG/3ML injection (PEN), Inject 0.5 mg into the skin every 7 days. Indications: Diabetes, Disp: 3 mL, Rfl: 1 Review of patient's allergies indicates: Allergen Reactions Pollen Extract Runny Nose Dust Mite Extract Runny Nose Molds & Smuts Runny Nose Past Medical History: Diagnosis Date Chronic kidney disease Depression Diabetes mellitus (HHS/HCC) (CMS/HCC) Disease of thyroid gland Hypertension Polycythemia vera (CMS/HCC) Past Surgical History: Procedure Laterality Date BACK SURGERY COLONOSCOPY FOOT FRACTURE SURGERY 1997 Metatarsal HC KIT BLADDER SLING/SUSPENSION 2013 HYSTERECTOMY 2000 LAPAROSCOPIC CHOLECYSTECTOMY 2003 Social History Socioeconomic History Marital status: Tobacco Use Smoking status: Former Types: Cigarettes Quit date: 1997 Years since quittin.9 Smokeless tobacco: Never Vaping Use Vaping Use: Never used Substance and Sexual Activity Alcohol use: Not [...] Father Sister Sister Alive Brother (Not Specified) Physical Exam Vitals reviewed. Constitutional: Appearance: Normal appearance. HENT: Head: Normocephalic. Neck: Thyroid: No thyromegaly. Cardiovascular: Rate and Rhythm: Normal rate and regular rhythm. Pulmonary: Effort: Pulmonary effort is normal. Breath sounds: Normal breath sounds. Musculoskeletal: Right lower leg: No edema. Left lower leg: No edema. Neurological: General: No focal deficit present. Mental Status: She is alert and oriented to person, place, and time. Psychiatric: Mood and Affect: Mood normal. Filed Vitals: 05/29/23 0954 05/29/23 1024 BP: (!) 142/77 135/80 Pulse: 61 Temp: 97.4 ??F (36.3 ??C) TempSrc: Temporal SpO2: 98% Weight: 124.5 kg (274 lb 6.4 oz) Diagnoses/Impression: 1. Essential hypertension COMPREHENSIVE METABOLIC PANEL CBC W/DIFF AUTOMATED 2. Moderate episode of recurrent major depressive disorder (CMS/HCC) DULoxetine (CYMBALTA) 60 MG capsule 3. Type 2 diabetes mellitus with hyperglycemia, without long-term current use of insulin (HHS/HCC) (CMS/HCC) COMPREHENSIVE METABOLIC PANEL HEMOGLOBIN, GLYCOSYLATED 4. Morbid (severe) obesity due to excess calories (CMS/HCC) 5. Generalized anxiety disorder DULoxetine (CYMBALTA) 60 MG capsule 6. Acquired hypothyroidism THYROID STIM HORMONE, TSH THYROXINE, FREE (FT4) 7. Mixed hyperlipidemia LIPID PANEL 8. Preoperative clearance 9. Age-related cataract of both eyes, unspecified age-related cataract type Recommendations and Plan: Discussed labs with patient. Continue same meds for depression, anxiety, HTN, DM, hypothyroid, and hyperlipidemia. Discussed diet and exercise for obesity. She is cleared for cataracts surgery, see form. She will have RSV vaccine at pharmacy. She will follow up in 3 months. Orders Placed This Encounter COMPREHENSIVE METABOLIC PANEL HEMOGLOBIN, GLYCOSYLATED LIPID PANEL THYROID STIM HORMONE, TSH THYROXINE, FREE (FT4) CBC W/DIFF AUTOMATED DULoxetine (CYMBALTA) 60 MG capsule Reviewed and updated this visit by provider: Tobacco Allergies Meds Problems Med Hx Surg Hx Fam Hx KAMI EDMOND PA-C Referring Provider: No ref. provider found PCP: KAMI EDMOND PA-C US CORNER MACHINE OPERATOR documented in this encounter Plan of Treatment Upcoming Encounters Date Type Department Care Team (Late st Contact Info) Description 11/07/2024 9:40 AM CDT Office Visit [facility] Family Medicine - [place] [phone] Kami Edmond PA-C [address] [place] [phone] documented as of this encounter Procedures Procedure Name Priority Date/Time Associated Diagnosis Comments HEMOGLOBIN, GLYCOSYLATED Routine 08/24/2023 7:50 AM RADIUS CORNER MACHINE OPERATOR Type 2 diabetes mellitus with hyperglycemia, without long-term current use of insulin ([facility] HHS/[facility]) COMPREHENSIVE METABOLIC PANEL Routine 08/24/2023 7:50 AM RADIUS CORNER MACHINE OPERATOR Essential hypertension Type 2 diabetes mellitus with hyperglycemia, without long-term current use of insulin ([facility] HHS/HCC) LIPID PANEL Routine 08/24/2023 7:50 AM RADIUS CORNER MACHINE OPERATOR Mixed hyperlipidemia CBC W/DIFF AUTOMATED Routine 08/24/2023 7:50 AM RADIUS CORNER MACHINE OPERATOR Essential hypertension THYROXINE, FREE (FT4) Routine 08/24/2023 7:50 AM RADIUS CORNER MACHINE OPERATOR Acquired hypothyroidism THYROID STIM HORMONE TSH Routine 08/24/2023 7:50 AM RADIUS CORNER MACHINE OPERATOR Acquired hypothyroidism documented in this encounter Results * (ABNORMAL) CBC W/DIFF AUTOMATED (08/24/2023 7:50 AM RADIUS CORNER MACHINE OPERATOR) WBC 5.3 3.8 - 10.8 Thousand/ uL [facility] RBC 5.38(H) 3.80 - 5.10 Million/u L [facility] HGB 16.0(H) 11.7 - 15.5 g/dL [facility] HCT 47.1(H) 35.0 - 45.0 % [facility] MCV 87.5 80.0 - 100.0 fL [facility] MCH 29.7 27.0 - 33.0 pg [facility] MCHC 34.0 32.0 - 36.0 g/dL [facility] RDW 12.9 11.0 - 15.0 % [facility] PLT 290 140 - 400 Thousand/ uL [facility] MPV 10.1 7.5 - 12.5 fL [facility] ABS. NEUTROPHILS 2,984 1,500 - 7,800 cells/uL [facility] ABS. LYMPHOCYTES 1,648 850 - 3,900 cells/uL [facility] ABS. MONOCYTES 557 200 - 950 cells/uL [facility] ABS. EOSINOPHILS 80 15 - 500 cells/uL [facility] ABS. BASOPHILS 32 0 - 200 cells/uL [facility] SEG NEUTROPHILS 56.3 % [facility] LYMPHOCYTES 31.1 % [facility] MONOCYTES 10.5 % [facility] EOSINOPHILS 1.5 % [facility] BASOPHILS 0.6 % [facility] 08/24/2023 7:50 AM RADIUS CORNER MACHINE OPERATOR 08/24/2023 7:51 AM RADIUS CORNER MACHINE OPERATOR Narrative [facility] - 08/25/2023 3:40 AM RADIUS CORNER MACHINE OPERATOR FASTING:YES FASTING: YES Resulting Agency Comment Performing Organization Information: ?Site ID: [place] ?Name: [facility] ?Address: [address] [address] ?Director: Shante Salvador MD Kami Edmond PA-C LABORATORY Final Resu lt [facility] [address] [place] [address], * THYROXINE, FREE (FT4) (08/24/2023 7:50 AM RADIUS CORNER MACHINE OPERATOR) FREE T4 1.2 0.8 - 1.8 ng/dL [facility] 08/24/2023 7:50 AM RADIUS CORNER MACHINE OPERATOR 08/24/2023 7:51 AM RADIUS CORNER MACHINE OPERATOR Narrative [facility] - 08/25/2023 3:40 AM RADIUS CORNER MACHINE OPERATOR FASTING:YES FASTING: YES Resulting Agency Comment Performing Organization Information: ?Site ID: [place] ?Name: [facility] ?Address: [address] [place] [id number] ?Director: Shante Salvador MD Kami Edmond PA-C LABORATORY Final Resu lt Performing Organization Address City/[facility]/ZIP Co de Phone Number [facility] [address] [facility] [place] [address], [place] * THYROID STIM HORMONE, TSH (08/24/2023 7:50 AM RADIUS CORNER MACHINE OPERATOR) TSH 0.71 0.40 - 4.50 mIU/L [facility] 08/24/2023 7:50 AM RADIUS CORNER MACHINE OPERATOR 08/24/2023 7:51 AM RADIUS CORNER MACHINE OPERATOR Narrative [facility] - 08/25/2023 3:40 AM RADIUS CORNER MACHINE OPERATOR FASTING:YES FASTING: YES Resulting Agency Comment Performing Organization Information: ?Site ID: [place] ?Name: [facility] ?Address: [address] [place] [phone] ?Director: Shante Salvador MD Kami M Magdaleno PA-C LABORATORY Final Resu lt Performing Organization Address City/[facility]/ZIP Co de Phone Number [facility] [address] [address], [place] * LIPID PANEL (08/24/2023 7:50 AM RADIUS CORNER MACHINE OPERATOR) CHOLESTEROL 133 <200 mg/dL [facility] HDL 58 > OR = 50 mg/dL [facility] TRIGLYCERIDES 145 <150 mg/dL [facility] LDL (CALCULATED) 52 mg/dL (calc) [facility] Comment: Reference range: <100 Desirable range <100 mg/dL for primary prevention; ?? <70 mg/dL for patients with CHD or diabetic patients with > or = 2 CHD risk factors. LDL-C is now calculated using the Prakash calculation, which is a validated novel method providing better accuracy than the Friedewald equation in the estimation of LDL-C. Trnio LOPEZ et al. CELSA. 2013;310(19): 1841-4816 (http://education.[employer]/faq/WWT778) CHOL/HDL RATIO 2.3 <5.0 (calc) [facility] NON HDL CHOLESTEROL 75 <130 mg/dL (calc) [facility] Comment: For patients with diabetes plus 1 major ASCVD risk factor, treating to a non-HDL-C goal of <100 mg/dL (LDL-C of <70 mg/dL) is considered a therapeutic option. 08/24/2023 7:50 AM RADIUS CORNER MACHINE OPERATOR 08/24/2023 7:51 AM RADIUS CORNER MACHINE OPERATOR Narrative [facility] - 08/25/2023 3:40 AM RADIUS CORNER MACHINE OPERATOR FASTING:YES FASTING: YES Resulting Agency Comment Performing Organization Information: ?Site ID: [place] ?Name: [facility] ?Address: [address] [place] [address] ?Director: Shante Salvador MD Kami Edmond PA-C LABORATORY Final Resu lt Performing Organization Address City/[facility]/ZIP Co de Phone Number [facility] [address] [place] [address], * HEMOGLOBIN, GLYCOSYLATED (08/24/2023 7:50 AM RADIUS CORNER MACHINE OPERATOR) HGB A1C 5.5 <5.7 % of total Hgb [facility] [place] Comment: For the purpose of screening for the presence of diabetes: <5.7% ? Consistent with the absence of diabetes 5.7-6.4% ?Consistent with increased risk for diabetes ?(prediabetes) > or =6.5% ??Consistent with diabetes This assay result is consistent with a decreased risk of diabetes. Currently, no consensus exists regarding use of hemoglobin A1c for diagnosis of diabetes in children. According to [place] Diabetes Association (ADA) guidelines, hemoglobin A1c <7.0% represents optimal control in non- diabetic patients. Different metrics may apply to specific patient populations. Standards of Medical Care in Diabetes(ADA). ? This test was performed on the [employer] Knife Operator c8000 platform. Please be advised that [facility] will move hemoglobin A1c testing to the [employer] platform soon. In general, direct comparison of the results from different platforms is not recommended. 08/24/2023 7:50 AM RADIUS CORNER MACHINE OPERATOR 08/24/2023 7:51 AM RADIUS CORNER MACHINE OPERATOR Narrative [facility] - 08/25/2023 3:40 AM RADIUS CORNER MACHINE OPERATOR FASTING:YES FASTING: YES Resulting Agency Comment Performing Organization Information: ?Site ID: [place] ?[facility] ?Address: [address] [place] [phone] ?Director: Shante Salvador us Kami Edmond PA-C LABORATORY Final Resu lt [facility] [address], * (ABNORMAL) COMPREHENSIVE METABOLIC PANEL (08/24/2023 7:50 AM RADIUS CORNER MACHINE OPERATOR) GLUCOSE 138(H) 65 - 99 mg/dL [facility] Comment: ? Fasting reference interval For someone without known diabetes, a glucose value >125 mg/dL indicates that they may have diabetes and this should be confirmed with a follow-up test. BUN 14 7 - 25 mg/dL [facility] CREATININE S/P/B 0.90 0.50 - 1.05 mg/dL [facility] GFR ESTIMATE 70 > OR = 60 mL/min/1. 73m2 [facility] BUN CREATININE RATIO SEE NOTE: 6 (calc) [facility] Comment: ?? Not Reported: BUN and Creatinine are within ?? reference range. ? SODIUM S/P/B 138 135 - 146 mmol/L [facility] POTASSIUM S/P/B 4.8 3.5 - 5.3 mmol/L [facility] CHLORIDE S/P/B 100 98 - 110 mmol/L [facility] CO2 30 20 - 32 mmol/L [facility] CALCIUM S/P/B 10.3 8.6 - 10.4 mg/dL [facility] TOTAL PROTEIN S/P/B 7.1 6.1 - 8.1 g/dL [facility] ALBUMIN S/P/B 4.5 3.6 - 5.1 g/dL [facility] GLOBULIN 2.6 1.9 - 3.7 g/dL (calc) [facility] ALBUMIN/GLOBULI N RATIO 1.7 1.0 - 2.5 (calc) [facility] BILIRUBIN TOTAL S/P/B 0.6 0.2 - 1.2 mg/dL [facility] ALKALINE PHOSPHATASE S/P/B 94 37 - 153 U/L [facility] AST 35 10 - 35 U/L [facility] ALT 34(H) 6 - 29 U/L [facility] 08/24/2023 7:50 AM RADIUS CORNER MACHINE OPERATOR 08/24/2023 7:51 AM RADIUS CORNER MACHINE OPERATOR Narrative [facility] - 08/25/2023 3:40 AM RADIUS CORNER MACHINE OPERATOR FASTING:YES FASTING: YES Resulting Agency Comment Performing Organization Information: ?Site ID: [place] ?Name: [facility] ?Address: [address] [address] ?Director: Shante Salvador MD us Kami Edmond PA-C LABORATORY Final Resu lt [facility] [address] [place] [address], documented in this encounter Visit Diagnoses Diagnosis Essential hypertension- Primary Unspecified essential hypertension Moderate episode of recurrent major depressive disorder ([facility]) Type 2 diabetes mellitus with hyperglycemia, without long-term current use of insulin ([facility]) Morbid (severe) obesity due to excess calories ([facility]) Generalized anxiety disorder Acquired hypothyroidism Unspecified hypothyroidism Mixed hyperlipidemia Preoperative clearance Preoperative examination, unspecified Age-related cataract of both eyes, unspecified age-related cataract type documented in this encounter Additional Health Concerns Assessment Noted Time PHQ-9 Depression Total Score: 13 023 8:53 AM RADIUS CORNER MACHINE OPERATOR documented as of this encounter Care Teams Railroad Purchasing Agent Relationship Specialty Start Date End Date Kami Edmond PA-C [address] [place] [address] PCP - General PHYSICIAN DOWELER 02/05/21 documented as of this encounter
--- OUTSIDE RECORDS SUMMARY | 2024-06-23 15:10 | XMS_ITS | Encounter Summary ---
Author Organization [facility] Address [address] [place] [address]. [place], [place] [address] [place] [address] Care Team Providers Care Casino Slot Supervisor Name Role Phone Franny Dolan PA-C Primary Care Provider +1- [phone] Encounter Details Date Type Department Care Team (Latest Contact Info) Description 04/20/2023 Travel Social History Tobacco Use Types Packs/Day [...] [facility] Family Medicine - [place] [address] [place] [phone] Franny Dolan PA-C [address] [place] [phone] documented as of this encounter Visit Diagnoses Not on filedocumented in this encounter Additional Health Concerns Assessment Noted Time PHQ-9 Depression Total Score: 13 023 8:53 AM DEPARTMENT HELPER documented as of this encounter Care Teams Casino Slot Supervisor Relationship Specialty Start Date End Date Franny Dolan PA-C [address] [place] [address] PCP - General PHYSICIAN HEART SURGEON 02/05/21 documented as of this encounter
--- OUTSIDE RECORDS SUMMARY | 2024-06-23 15:10 | XMS_ITS | Encounter Summary ---
Author Organization [facility] Address [address] [place] [address]. [place], [place] [phone] [place] [address] Care Team Providers Care Telegraphic Service Dispatcher Name Role Phone Franny Dolan PA-C Primary Care Provider +1- [phone] Encounter Details Date Type Department Care Team (Latest Contact Info) Description 04/03/2023 Travel Social History Tobacco Use Types Packs/Day [...] Description 11/07/2024 9:40 AM CDT Office Visit [facility] Family Medicine - [place] [address] [place] [phone] Franny Dolan PA-C [address] [place] [address] [phone] documented as of this encounter Visit Diagnoses Not on filedocumented in this encounter Additional Health Concerns Assessment Noted Time PHQ-9 Depression Total Score: 13 023 8:53 AM FELT CARBONIZER documented as of this encounter Care Teams Telegraphic Service Dispatcher Relationship Specialty Start Date End Date Franny Dolan PA-C [address] [place] [phone] PCP - General PHYSICIAN SALVAGE MEND WORKER 02/05/21 documented as of this encounter
--- OUTSIDE RECORDS SUMMARY | 2024-06-23 15:10 | XMS_ITS | Encounter Summary ---
Author Organization [facility] Address [address] [place] [address]. [place] [address] [place] [address] Care Team Providers Care Fiscal Services Director Name Role Phone Franny Dolan PA-C Primary Care Provider +1- [phone] Encounter Details Date Type Department Care Team (Late st Contact Info) Description 04/27/2023 [place] Message Enc [address] [phone] Franny Dolan PA-C [address] [place] [phone] results Social History Tobacco Use Types Packs/Day Years Used Date Smoking Tobacco: Former Cigarettes Q uit: 1998 Smokeless Tobacco: Never Alcohol Use Standard Drinks/Week [...] Description 11/07/2024 9:40 AM CDT Office Visit [address] [phone] Franny Dolan PA-C [address] [place] [address] documented as of this encounter Visit Diagnoses Not on filedocumented in this encounter Additional Health Concerns Assessment Noted Time PHQ-9 Depression Total Score: 13 023 8:53 AM WHEEL ALIGNMENT TECHNICIAN documented as of this encounter Care Teams Fiscal Services Director Relationship Specialty Start Date End Date Franny Dolan PA-C [address] [place] [address] - [address] PH[address] GRADER OPERATOR 02/05/21 documented as of this encounter
--- OUTSIDE RECORDS SUMMARY | 2024-06-23 15:10 | XMS_ITS | Encounter Summary ---
Author Organization [facility] Address [address] [place] [address]. [place] [address] [place] [address] Care Team Providers Care Refuse Laborer Name Role Phone Franny Dolan PA-C Primary Care Provider +1- [phone] Reason for Visit * Reason Comments CT (SCAN) Encounter Details Date Type Department Care Team (Latest Contact Info) Description 10/14/2023 Scan [facility] Scanned, Doc Med Group CT (SCAN) Social History Tobacco Use Types Packs/Day [...] Description 11/07/2024 9:40 AM CDT Office Visit [facility] Medical Group Family Medicine - [place] [address] [place] [phone] Franny Dolan PA-C [address] [place] [address] documented as of this encounter Procedures Procedure Name Priority Date/Time Associated Diagnosis Comments CT GENERIC 10/14/2023 CT GENERIC 10/14/2023 documented in this encounter Results * CT GENERIC (10/14/2023) Anatomical Region Laterality Modality Other 10/14/2023 us Doc Med Group Scanned SCANNING Final Resu lt * CT GENERIC (10/14/2023) Anatomical Region Laterality Modality Other 10/14/2023 us Doc Med Group Scanned SCANNING Final Resu lt documented in this encounter Visit Diagnoses Not on filedocumented in this encounter Additional Health Concerns Assessment Noted Time PHQ-9 Depression Total Score: 13 023 8:53 AM SOCIAL WORKER MASTERS documented as of this encounter Care Teams Refuse Laborer Relationship Specialty Start Date End Date Franny Dolan PA-C [address] [place] [address]. [place] [address] PCP - General PHYSICIAN PATTERNMAKER HELPER 02/05/21 documented as of this encounter
--- OUTSIDE RECORDS SUMMARY | 2024-06-23 15:10 | XMS_ITS | Encounter Summary ---
Author Organization [facility] Address [address] [place] [address]. [place] [address] [place] [address] Care Team Providers Care Vehicle Dismantler Name Role Phone Kami Edmond PA-C Primary Care Provider +1- [phone] Reason for Visit * Reason Onset Date Comments Refill Request 12/05/2023 Encounter Details Date Type Department Care Team (Late st Contact Info) Description 12/05/2023 Telephone [facility] Family Medicine - [place] [address] [place] [address] Kami Edmond PA-C 100 [place] [address] Refill Request Social History Tobacco [...] Notes * Kelsey De La Paz - 12/05/2023 9:00 AM CDT Medication and strength: cetrizine 10 mg Pharmacy: [facility] Call back #: [phone] Last office visit at this office: Last visit with KAMI EDMOND in FAMILY PRACTICE was on: 11/28/2023 in [facility] Future appointment scheduled: Future Appointments Date Time Provider Department Center 01/29/2024 10:20 AM Kami Edmond PA-C [id number] documented in this encounter Plan of Treatment Upcoming Encounters Date Type Department Care Team (Late st Contact Info) Description 11/07/2024 9:40 AM CDT Office Visit [facility] Family Medicine - [place] [address] Kami Emdond PA-C [address] [place] [address] documented as of this encounter Visit Diagnoses Diagnosis Allergies documented in this encounter Additional Health Concerns Assessment Noted Time PHQ-9 Depression Total Score: 22 024 9:46 AM CDT documented as of this encounter Care Teams Vehicle Dismantler Relationship Specialty Start Date End Date Kami Edmond PA-C [address] [place] [address] PCP - General PHYSICIAN SOCIAL WORK COORDINATOR 02/05/21 documented as of this encounter
--- OUTSIDE RECORDS SUMMARY | 2024-06-23 15:10 | XMS_ITS | Encounter Summary ---
Author Organization [facility] Address [address] [place] [address]. [place] [address] [place] [address] Care Team Providers Care Accounting System Expert Name Role Phone Kami Edmond PA-C Primary Care Provider +1- [phone] Reason for Visit * Reason Comments Hypertension Hyperlipidemia Diabetes Hypothyroidism Pt presents for foll ow up w labs Encounter Details Date Type Department Care Team (Late st Contact Info) Description 08/28/2023 9:40 AM BULK DELIVERY DRIVER Office Visit [facility] Family Medicine - [place] [phone] Kami Edmond PA-C [address] [place] [phone] Hypertension; Hyperlipidemia; Diabetes; Hypothyroidism (Pt presents for follow up w labs ) Social History Tobacco Use Types Packs/Day Years Used Date Smoking Tobacco: Former Cigarettes Q uit: 1998 Smokeless Tobacco: Never Tobacco Cessation:Counseling Given: Not [...] Reading Time Taken Comments Blood Pressure 135/80 08/28/2023 9:58 AM BULK DELIVERY DRIVER Pulse 61 08/28/2023 9:32 AM BULK DELIVERY DRIVER Temperature 36.4 ??C (97.5 ??F) 08/28/2023 9:32 AM CS T Respiratory Rate - - Oxygen Saturation 98% 08/28/2023 9:32 AM BULK DELIVERY DRIVER Inhaled Oxygen Concentration - - Weight 125.2 kg (276 lb) 08/28/2023 9:32 AM BULK DELIVERY DRIVER Height - - Body Mass Index 47.38 02/13/2023 10:22 AM CDT documented in this encounter Progress Notes * Kami Edmond PA-C - 08/28/2023 9:40 AM CST Reason for Visit: Hypertension, Hyperlipidemia, Diabetes, and Hypothyroidism (Pt presents for follow up w labs ) History of Present Illness: Patient here for follow up diabetes/HTN. Takes medications daily. Tries to follow low carb diet andwalks sometimes. Checks blood sugars daily. Fasting blood sugars usually 100-120. Last HgbA1C was 5.5. Last eye exam was 04/27/23. Feels mota is helping the depression and anxiety. Denies any crying episodes, depressive mood, anxiety or suicide thoughts on the medication. Sleeps and eats well. She is seeing [employer]. She tripped walking in June, but it aggrevated her sciatica again. Shetakes tylenol for it. She is a little better, but the sciatica goes down the right leg from her back when she moves. She does exercises at home for sciatica as she has had it in the past. She feels like her left is clogged and somewhat painful. She had a cold in Jul and had drainage from it. ROS: Review of Systems Constitutional: Negative for fever. HENT: Positive for ear pain. Negative for congestion, ear discharge, hearing loss and sore throat. Respiratory: Negative for cough and shortness of breath. Cardiovascular: Negative for chest pain. Gastrointestinal: Negative for abdominal pain, blood in stool, constipation, diarrhea, melena, nausea and vomiting. Genitourinary: Negative for dysuria, frequency and hematuria. Musculoskeletal: Positive for back pain. Psychiatric/Behavioral: Negative for suicidal ideas. All other systems reviewed and are negative. Medications: Current Outpatient Medications: acetaminophen CR 650 MG Tab CR 8 hr tablet, Take 1 tablet (650 mg total) by mouth., Disp: , Rfl: amoxicillin-clavulanate (AUGMENTIN) 875-125 MG tablet, Take 1 tablet (875 mg total) by mouth 2 (two) times daily for 10 days., Disp: 20 tablet, Rfl: 0 busPIRone (BUSPAR) 15 MG tablet, Take 1 tablet (15 mg total) by mouth 2 (two) times daily., Disp: 180 tablet, Rfl: 1 cetirizine (ZYRTEC) 10 MG tablet, TAKE 1 TABLET BY MOUTH EVERY DAY, Disp: 90 tablet, Rfl: 3 clobetasol (TEMOVATE) 0.05 % ointment, Apply topically 2 (two) times daily., Disp: , Rfl: cyclobenzaprine (FLEXERIL) 10 MG tablet, Take 1 tablet (10 mg total) by mouth 3 (three) times dailyas needed for Muscle Spasms., Disp: 30 tablet, Rfl: 0 DULoxetine (CYMBALTA) 60 MG capsule, Take 1 capsule (60 mg total) by mouth daily., Disp: 90 capsule, Rfl: 1 Fenofibrate 134 MG Cap, Take 1 capsule by mouth daily with breakfast., Disp: 90 capsule, Rfl: 1 fluconazole (DIFLUCAN) 150 MG tablet, Take 1 tablet (150 mg total) by mouth once for 1 dose., Disp:2 tablet, Rfl: 0 fluticasone propionate 50 MCG/ACT nasal spray, 2 [...] , Rfl: levothyroxine (SYNTHROID) 100 MCG tablet, take 1 tablet every morning, Disp: 90 tablet, Rfl: 3 losartan (COZAAR) [...] a week., Disp: 9 mL, Rfl: 1 Review of patient's allergies indicates: Allergen Reactions Pollen Extract Runny Nose Dust Mite Extract Runny Nose Molds & Smuts Runny Nose Past Medical History: Diagnosis Date Chronic kidney disease Depression Diabetes mellitus (HHS/HCC) ([facility]/HCC) Disease of thyroid gland Hypertension Polycythemia vera ([facility]/HCC) Past Surgical History: Procedure Laterality Date BACK SURGERY CATARACT EXTRACTION Bilateral COLONOSCOPY FOOT FRACTURE SURGERY 1997 Metatarsal HC KIT BLADDER SLING/SUSPENSION 2014 HYSTERECTOMY 2001 LAPAROSCOPIC CHOLECYSTECTOMY 2003 Social History Socioeconomic History Marital status: Tobacco Use Smoking status: Former Types: Cigarettes Quit date: 1997 Years since quittin.1 Smokeless tobacco: Never Vaping Use Vaping Use: [...] Constitutional: Appearance: Normal appearance. HENT: Head: Normocephalic. Right Ear: Tympanic membrane normal. Comments: Left tm red Mouth/Throat: Mucous membranes are moist. No posterior oropharyngeal erythema. Oropharynx is clear. Neck: Thyroid: No thyromegaly. Cardiovascular: Rate and Rhythm: Normal rate and regular rhythm. Pulmonary: Effort: Pulmonary effort is normal. Breath sounds: Normal breath sounds. Musculoskeletal: Lumbar back: Tenderness present. Decreased range of motion. Right lower leg: No edema. Left lower leg: No edema. Neurological: Mental Status: She is alert. Psychiatric: Mood and Affect: Mood normal. Filed Vitals: 08/28/23 0932 08/28/23 0958 BP: (!) 143/81 135/80 Pulse: 61 Temp: 97.5 ??F (36.4 ??C) TempSrc: Temporal SpO2: 98% Weight: 125.2 kg (276 lb) Diagnoses/Impression: 1. Essential hypertension COMPREHENSIVE METABOLIC PANEL losartan (COZAAR) 50 MG tablet 2. Type 2 diabetes mellitus with hyperglycemia, without long-term current use of insulin ([facility]/HCC) ([facility]) COMPREHENSIVE METABOLIC PANEL HEMOGLOBIN, GLYCOSYLATED semaglutide (OZEMPIC) 1 mg/dose injection (PEN) 3. Morbid (severe) obesity due to excess calories ([facility]) semaglutide (OZEMPIC) 1 mg/dose injection (PEN) 4. Mixed hyperlipidemia 5. Acquired hypothyroidism 6. Moderate episode of recurrent major depressive disorder ([facility]) DULoxetine (CYMBALTA) 60 MG capsule 7. Generalized anxiety disorder DULoxetine (CYMBALTA) 60 MG capsule 8. Sciatica of right side cyclobenzaprine (FLEXERIL) 10 MG tablet 9. Acute otitis media, unspecified otitis media type amoxicillin-clavulanate (AUGMENTIN) 875-125 MGtablet 10. Acute vaginitis fluconazole (DIFLUCAN) 150 MG tablet Recommendations and Plan: Discussed labs with patient. She will increase ozempic to 1 mg daily for DM and obesity. Continue same meds for HTN, DM, hyperlipidemia, hypothyroid, depression, and anxiety. Discussed diet and exercise for obesity. She will take flexeril for sciatica, warned of drowsiness and will call if not better. She will take augmentin for otitis media and she will follow up with ENT if not better. Will follow up in 6 months. Orders Placed This Encounter COMPREHENSIVE METABOLIC PANEL HEMOGLOBIN, GLYCOSYLATED glipiZIDE XL 10 MG 24 hr tablet semaglutide (OZEMPIC) 1 mg/dose injection (PEN) losartan (COZAAR) 50 MG tablet DULoxetine (CYMBALTA) 60 MG capsule cyclobenzaprine (FLEXERIL) 10 MG tablet fluconazole (DIFLUCAN) 150 MG tablet amoxicillin-clavulanate (AUGMENTIN) 875-125 MG tablet Reviewed and updated this visit by provider: Tobacco Allergies Meds Problems Med Hx Surg Hx Fam Hx KAMI EDMOND PA-C Referring Provider: No ref. provider found PCP: KAMI EDMOND PA-C DELIVERY DRIVER documented in this encounter Plan of Treatment Upcoming Encounters Date Type Department Care Team (Late st Contact Info) Description 11/07/2024 9:40 AM CDT Office Visit [facility] Family Medicine - [place] [phone] Kami Edmond PA-C [address] [place] [address] documented as of this encounter Procedures Procedure Name Priority Date/Time Associated Diagnosis Comments HEMOGLOBIN, GLYCOSYLATED Routine 11/23/2023 7:35 AM CDT Type 2 diabetes mellitus with hyperglycemia, without long-term current use of insulin ([facility] HHS/HCC) COMPREHENSIVE METABOLIC PANEL Routine 11/23/2023 7:35 AM CDT Essential hypertension Type 2 diabetes mellitus with hyperglycemia, without long-term current use of insulin ([facility] HHS/[facility]) documented in this encounter Results * (ABNORMAL) HEMOGLOBIN, GLYCOSYLATED (11/23/2023 7:35 AM CDT) HGB A1C 5.9(H) <5.7 % of total Hgb [facility] [place] Comment: For someone without known diabetes, [...] A1c for diagnosis of diabetes for children. ? This test was performed on the Naila prema c503 platform. Effective 09/11/23, a change in test platforms from the Garza Sausage Tier to the Naila prema c503 may have shifted HbA1c results compared to historical results. Based on laboratory validation testing conducted at [facility], the Naila platform relative to the Garza platform had an average increase in HbA1c value of < or = 0.3%. This difference is within accepted variability established by the National Glycohemoglobin Standardization Program. Note that not all individuals will have had a shift in their results and direct comparisons between historical and current results for testing conducted on different platforms is not recommended. 11/23/2023 7:35 AM CDT 11/23/2023 7:36 AM CDT Narrative Resulting Agency Comment Performing Organization Information: ?Site ID: [place] ?Name: [facility] ?Address: [address] [place] [id number] ?Director: Shante Salvador Kami Edmond PA-C LABORATORY Final Resu lt [facility] [id number] * (ABNORMAL) COMPREHENSIVE METABOLIC PANEL (11/23/2023 7:35 AM CDT) GLUCOSE 130(H) 65 - 99 mg/dL [facility] Comment: ? Fasting reference interval For someone without known diabetes, a glucose value >125 mg/dL indicates that they may have diabetes and this should be confirmed with a follow-up test. BUN 14 7 - 25 mg/dL [facility] CREATININE S/P/B 0.84 0.50 - 1.05 mg/dL [facility] GFR ESTIMATE 76 > OR = 60 mL/min/1. 73m2 [facility] BUN CREATININE RATIO SEE NOTE: (calc) [facility] Comment: ?? Not Reported: BUN and Creatinine are within ?? reference range. ? SODIUM S/P/B 138 135 - 146 mmol/L [facility] POTASSIUM S/P/B 4.8 3.5 - 5.3 mmol/L [facility] CHLORIDE S/P/B 102 98 - 110 mmol/L [facility] CO2 26 20 - 32 mmol/L [facility] CALCIUM S/P/B 9.8 8.6 - 10.4 mg/dL [facility] TOTAL PROTEIN S/P/B 6.5 6.1 - 8.1 g/dL [facility] ALBUMIN S/P/B 4.2 3.6 - 5.1 g/dL [facility] GLOBULIN 2.3 1.9 - 3.7 g/dL (calc) [facility] ALBUMIN/GLOBULI N RATIO 1.8 1.0 - 2.5 (calc) [facility] BILIRUBIN TOTAL S/P/B 0.6 0.2 - 1.2 mg/dL [facility] ALKALINE PHOSPHATASE S/P/B 92 37 - 153 U/L [facility] AST 31 10 - 35 U/L [facility] ALT 31(H) 6 - 29 U/L [facility] 11/23/2023 7:35 AM CDT 11/23/2023 7:36 AM CDT Narrative Resulting Agency Comment Performing Organization Information: ?Site ID: [place] ?Name: [facility] ?Address: [address] [place] [address] ?Director: Shante Salvador MD us Kami Edmond PA-C LABORATORY Final Resu lt [facility] [address] [place], [place] [address] documented in this encounter Visit Diagnoses Diagnosis Essential hypertension- Primary Unspecified essential hypertension Type 2 diabetes mellitus with hyperglycemia, without long-term current use of insulin ([facility]) Morbid (severe) obesity due to excess calories ([facility]) Mixed hyperlipidemia Acquired hypothyroidism Unspecified hypothyroidism Moderate episode of recurrent major depressive disorder ([facility]) Generalized anxiety disorder Sciatica of right side Sciatica Acute otitis media, unspecified otitis media type Acute vaginitis Vaginitis and vulvovaginitis, unspecified documented in this encounter Additional Health Concerns Assessment Noted Time PHQ-9 Depression Total Score: 13 07/26/ 023 8:53 AM BULK DELIVERY DRIVER documented as of this encounter Care Teams Accounting System Expert Relationship Specialty Start Date End Date Kami Edmond PA-C [address] [place] [id number] PCP - General PHYSICIAN GAS PLANT REPAIRER 02/05/21 documented as of this encounter
--- OUTSIDE RECORDS SUMMARY | 2024-06-23 15:10 | XMS_ITS | Encounter Summary ---
Author Organization [facility] Address [address] [place] [address]. [place] [address] [place] [address] Care Team Providers Care Information Systems Planner Name Role Phone Kami Edmond PA-C Primary Care Provider +1- [phone] Reason for Visit * Reason Onset Date Comments Medication Request 07/18/2023 Encounter Details Date Type Department Care Team (Late st Contact Info) Description 07/18/2023 Telephone [facility] Family Medicine - [place] [address] [place] [address] Kami Edmond PA-C 100 [place] [address] Medication Request Social History Tobacco [...] Progress Notes * Ann Armstrong MA - 07/18/2023 10:23 AM CST Rx sent ERT PIANIST * Lyndsey Steve - 07/18/2023 9:33 AM CST .Refill request Kristal Raygozaa Juli a patient of KAMI EDMOND PA-C requests a refill of semaglutide (OZEMPIC) 2 MG/3ML injection (PEN) she won't have enough for Monday07/21/23 Please call with any questions [phone] The patient would like this sent to the following pharmacy: [id number] - [place], [place] - [address] [facility] [address] [facility] [id number] The next office visit: Next visit with KAMI EDMOND in FAMILY PRACTICE is on: 08/28/2023 in [facility] The last office visit: Last visit with KAMI EDMOND in FAMILY PRACTICE was on: 05/29/2023 in [facility] ERT PIANIST documented in this encounter Plan of Treatment Upcoming Encounters Date Type Department Care Team (Late st Contact Info) Description 11/07/2024 9:40 AM CDT Office Visit [facility] Family Medicine [address] [phone] Kami Edmond PA-C [address] [place] [address] documented as of this encounter Visit Diagnoses Diagnosis Type 2 diabetes mellitus with hyperglycemia, unspecified whether watermaster insulin use ([facility]) documented in this encounter Additional Health Concerns Assessment Noted Time PHQ-9 Depression Total Score: 13 023 8:53 AM CONCERT PIANIST documented as of this encounter Care Teams Information Systems Planner Relationship Specialty Start Date End Date Kami Edmond PA-C [address] [place] [address] PCP - General PHYSICIAN ORGANIC SECTION TECHNICAL LEAD 02/05/21 documented as of this encounter
--- OUTSIDE RECORDS SUMMARY | 2024-06-23 15:10 | XMS_ITS | Encounter Summary ---
Author Organization [facility] Address [address] [place] [address]. [place], [place] [address] [place] [address] Care Team Providers Care Lease Administration Supervisor Name Role Phone Franny Dolan PA-C Primary Care Provider +1- [phone] Encounter Details Date Type Department Care Team (Latest Contact Info) Description 01/20/2024 Scan [facility] SRVCS Scanned, Doc [...] 9:40 AM CDT Office Visit [facility] Family Medicine - [place] 100 [place] [phone] Franny Dolan PA-C [address] [place] [address] documented as of this encounter Visit Diagnoses Not on filedocumented in this encounter Additional Health Concerns Assessment Noted Time PHQ-9 Depression Total Score: 22 024 9:46 AM CDT documented as of this encounter Care Teams Lease Administration Supervisor Relationship Specialty Start Date End Date Franny Dolan PA-C [address] [place] [address] PCP - General PHYSICIAN CYBER OPERATOR 02/05/21 documented as of this encounter
--- OUTSIDE RECORDS SUMMARY | 2024-06-23 15:10 | XMS_ITS | Encounter Summary ---
Author Organization [facility] Address [address] [place] [address]. [place], [place] [address] [place] [address] Care Team Providers Care Polymer Engineer Name Role Phone Franny Dolan PA-C Primary Care Provider +1- [phone] Encounter Details Date Type Department Care Team (Latest Contact Info) Description 09/08/2023 Scan [facility] INFO SRVCS Scanned, Doc [...] Description 11/07/2024 9:40 AM CDT Office Visit [facility] Family Medicine - [place] [address] [place] [phone] Franny Dolan PA-C [address] [place] [address] documented as of this encounter Visit Diagnoses Not on filedocumented in this encounter Additional Health Concerns Assessment Noted Time PHQ-9 Depression Total Score: 13 023 8:53 AM BEHAVIORAL HEALTH PROFESSIONAL documented as of this encounter Care Teams Polymer Engineer Relationship Specialty Start Date End Date Franny Dolan PA-C [address] [place] [address] PCP - General PHYSICIAN SHIPPING LEAD PERSON 02/05/21 documented as of this encounter
--- OUTSIDE RECORDS SUMMARY | 2024-06-23 15:10 | XMS_ITS | Encounter Summary ---
Author Organization [facility] Address [address] [place] [address]. [place] [address] [place] [address] Care Team Providers Care Service Now Developer Name Role Phone Kami Edmond PA-C Primary Care Provider +1- [phone] Reason for Visit * Reason Comments Hypertension Pt presents for foll ow up Diabetes Encounter Details Date Type Department Care Team (Late st Contact Info) Description 04/03/2023 11:20 AM CDT Office Visit [facility] Family Medicine - [place] [phone] Kami Edmond PA-C [address] [place] [phone] Hypertension (Pt presents for follow up ); Diabetes Social History Tobacco Use Types Packs/Day Years [...] Sign Reading Time Taken Comments Blood Pressure 145/80 04/03/2023 11:36 AM CDT Pulse 61 04/03/2023 11:02 AM CDT Temperature 36.7 ??C (98 ??F) 04/03/2023 11:02 AM CDT Respiratory Rate - - Oxygen Saturation 98% 04/03/2023 11:02 AM CDT Inhaled Oxygen Concentration - - Weight 125 kg (275 lb 9.6 oz) 04/03/2023 11:02 A M CDT Height - - Body Mass Index 47.31 02/13/2023 10:22 AM CDT documented in this encounter Progress Notes * Kami Edmond PA-C - 04/03/2023 11:20 AM CDT Reason for Visit: Hypertension (Pt presents for follow up ) and Diabetes History of Present Illness: Patient here for follow up diabetes/HTN. Takes medications daily. She started ozempic and has been tolerating it well. Tries to follow low carb diet. Hasn't been testing her BS daily. Last HgbA1C was8.8. Last eye exam was over a year. Her BP is high at home also. Denies any complaints. ROS: Review of Systems Respiratory: Negative for shortness of breath. Cardiovascular: Negative for chest pain. Psychiatric/Behavioral: Negative for suicidal ideas. All [...] DULoxetine (CYMBALTA) 60 MG capsule, TAKE 1 CAPSULE(60 MG) BY MOUTH DAILY, Disp: 90 capsule, Rfl: 1 Fenofibrate [...] (GLUCOPHAGE-XR) 500 MG 24 hr tablet, Take 2 tablets (1,000 mg total) by mouth daily with breakfast., Disp: 90 tablet, Rfl: 1 Multiple Vitamin (MULTIVITAMIN) capsule, Take 1 capsule by mouth daily., Disp: , Rfl: nystatin (MYCOSTATIN) powder, Apply topically 3 (three) times daily., Disp: 60 g, Rfl: 1 semaglutide (OZEMPIC) 2 MG/3ML injection (PEN), Inject 0.25 mg into the skin every 7 days. Indications: Diabetes, Disp: 3 mL, Rfl: 1 semaglutide (OZEMPIC) 2 MG/3ML injection [...] Metatarsal HC KIT BLADDER SLING/SUSPENSION 2013 HYSTERECTOMY 2001 LAPAROSCOPIC CHOLECYSTECTOMY 2003 Social History Socioeconomic History Marital status: Tobacco Use Smoking status: Former Types: Cigarettes Quit date: 1997 Years since quittin.7 Smokeless tobacco: Never Vaping Use Vaping Use: [...] Exam Vitals reviewed. Constitutional: Appearance: Normal appearance. Neck: Thyroid: No thyromegaly. Cardiovascular: Rate and Rhythm: Normal rate and regular rhythm. Pulmonary: Effort: Pulmonary effort is normal. Breath sounds: Normal breath sounds. Musculoskeletal: Right lower leg: No edema. Left lower leg: No edema. Neurological: Mental Status: She is alert. Psychiatric: Mood and Affect: Mood normal. Filed Vitals: 04/03/23 1102 04/03/23 1136 BP: (!) 148/88 (!) 145/80 Pulse: 61 Temp: 98 ??F (36.7 ??C) TempSrc: Temporal SpO2: 98% Weight: 125 kg (275 lb 9.6 oz) Diagnoses/Impression: 1. Essential hypertension COMPREHENSIVE METABOLIC PANEL losartan (COZAAR) 50 MG tablet 2. Type 2 diabetes mellitus with hyperglycemia, unspecified whether alf insulin use (HHS/HCC)([facility]) COMPREHENSIVE METABOLIC PANEL HEMOGLOBIN, GLYCOSYLATED ALBUMIN URINE RANDOM semaglutide (OZEMPIC) 2 MG/3ML injection (PEN) 3. Morbid (severe) obesity due to excess calories ([facility]) 4. Elevated LFTs Recommendations and Plan: Continue same meds for HTN and DM. She will add losartan for HTN. She will increase ozempic to 05. Mg weekly for DM. Discussed limiting salt and cafeine. Discussed monitoring blood pressure at home and call if above 140/90 consistently. Needs to bring blood pressure log to follow up appointment to [facility] par[facility]. Can also bring blood pressure machine to visit to check for accuracy in the office. Discussed diet and exercise for diabetes and obesity. She has eye exam scheduled. She will have covid and RSV at pharmacy. She was given US abdominal order printout and scheduling phone number to call herselfto schedule. She will follow up in May. Orders Placed This Encounter COMPREHENSIVE METABOLIC PANEL HEMOGLOBIN, GLYCOSYLATED ALBUMIN URINE RANDOM clobetasol (TEMOVATE) 0.05 % ointment semaglutide (OZEMPIC) 2 MG/3ML injection (PEN) losartan (COZAAR) 50 MG tablet Reviewed and updated this visit [...] [facility] [place] [phone] Kami Edmond PA-C [address] [place] [phone] documented as of this encounter Procedures Procedure Name Priority Date/Time Associated Diagnosis Comments HEMOGLOBIN, GLYCOSYLATED Routine 05/02/2023 8:39 AM AVIATION MAINTENANCE INSTRUCTOR Type 2 diabetes mellitus with hyperglycemia, unspecified whether mainframe architect insulin use ([facility]) ALBUMIN URINE RANDOM W/CREATININE Routine 05/02/2023 8:39 AM AVIATION MAINTENANCE INSTRUCTOR Type 2 diabetes mellitus with hyperglycemia, unspecified whether alf insulin use ([facility]) COMPREHENSIVE METABOLIC PANEL Routine 05/02/2023 8:39 AM AVIATION MAINTENANCE INSTRUCTOR Essential hypertension Type 2 diabetes mellitus with hyperglycemia, unspecified whether mainframe architect insulin use ([facility]) documented in this encounter Results * ALBUMIN URINE RANDOM (05/02/2023 8:39 AM AVIATION MAINTENANCE INSTRUCTOR) CREATININE RANDOM (U) 116 20 - 275 mg/dL [facility] MICROALBUMIN (U) 0.8 See Note: mg/dL [facility] Comment: Reference Range: Reference Range Not established MICROALB/CREAT 7 <30 mcg/mg creat [facility] Comment: The ADA defines abnormalities in albumin excretion as follows: Albuminuria Category ?Result (mcg/mg creatinine) Normal to Mildly increased ?? <30 Moderately increased ? 30-299 Severely increased ? > OR = 300 The ADA recommends that at least two of three specimens collected within a 3-6 month period be abnormal before considering a patient to be within a diagnostic category. URINE SPECIMEN / Unknown 05/02/2023 8:39 AM AVIATION MAINTENANCE INSTRUCTOR 05/02/2023 8:40 AM AVIATION MAINTENANCE INSTRUCTOR Narrative [facility] - [facility] - 05/03/2023 3:56 PM AVIATION MAINTENANCE INSTRUCTOR FASTING:YES FASTING: YES Resulting Agency Comment Performing Organization Information: ?Site ID: [id number] ?Name: [facility] ?Address: [address] [facility] [place] [address] ?Director: Shante Salvador MD us Kami Edmond PA-C URINE ORDERABLES Final Res ult [facility] - [facility] [address] [place], [place] [address] * (ABNORMAL) HEMOGLOBIN, GLYCOSYLATED (05/02/2023 8:39 AM AVIATION MAINTENANCE INSTRUCTOR) HGB A1C 6.1(H) <5.7 % of total Hgb [facility] [place] Comment: For someone without known diabetes, [...] A1c for diagnosis of diabetes for children. 05/02/2023 8:39 AM AVIATION MAINTENANCE INSTRUCTOR 05/02/2023 8:40 AM AVIATION MAINTENANCE INSTRUCTOR Narrative [facility] - [facility] ORDERS - 05/03/2023 3:56 PM AVIATION MAINTENANCE INSTRUCTOR FASTING:YES FASTING: YES Resulting Agency Comment Performing Organization Information: ?Site ID: SL ?Name: [facility] ?Address: [facility] [address] ?Director: Shante Salvador us Kami Edmond PA-C LABORATORY Final Resu lt [facility] - [facility] [address], * (ABNORMAL) COMPREHENSIVE METABOLIC PANEL (05/02/2023 8:39 AM AVIATION MAINTENANCE INSTRUCTOR) GLUCOSE 89 65 - 99 mg/dL [facility] Comment: ? Fasting reference interval BUN 16 7 - 25 mg/dL [facility] CREATININE S/P/B 0.83 0.50 - 1.05 mg/dL [facility] GFR ESTIMATE 77 > OR = 60 mL/min/1. 73m2 [facility] BUN CREATININE RATIO SEE NOTE: (calc) [facility] Comment: ?? Not Reported: BUN and Creatinine are within ?? reference range. ? SODIUM S/P/B 139 135 - 146 mmol/L [facility] POTASSIUM S/P/B 4.3 3.5 - 5.3 mmol/L [facility] CHLORIDE S/P/B 101 98 - 110 mmol/L [facility] CO2 29 20 - 32 mmol/L [facility] CALCIUM S/P/B 10.3 8.6 - 10.4 mg/dL [facility] TOTAL PROTEIN S/P/B 7.1 6.1 - 8.1 g/dL [facility] ALBUMIN S/P/B 4.3 3.6 - 5.1 g/dL [facility] GLOBULIN 2.8 1.9 - 3.7 g/dL (calc) [facility] ALBUMIN/GLOBULI N RATIO 1.5 1.0 - 2.5 (calc) [facility] BILIRUBIN TOTAL S/P/B 0.7 0.2 - 1.2 mg/dL [facility] ALKALINE PHOSPHATASE S/P/B 99 37 - 153 U/L [facility] AST 36(H) 10 - 35 U/L [facility] ALT 35(H) 6 - 29 U/L [facility] 05/02/2023 8:39 AM AVIATION MAINTENANCE INSTRUCTOR 05/02/2023 8:40 AM AVIATION MAINTENANCE INSTRUCTOR Narrative [facility] - [facility] ORDERS - 05/03/2023 3:56 PM AVIATION MAINTENANCE INSTRUCTOR FASTING:YES FASTING: YES Resulting Agency Comment Performing Organization Information: ?Site ID: [id number] ?Name: [facility] ?Address: [address] [place] [address] ?Director: Shante Salvador MD us Kami Edmond PA-C LABORATORY Final Resu lt [facility] - [facility]DERS [facility] [address] [place] [address], documented in this encounter Visit Diagnoses Diagnosis Essential hypertension- Primary Unspecified essential hypertension Type 2 diabetes mellitus with hyperglycemia, unspecified whether alf insulin use ([facility] HHS/HCC) Morbid (severe) obesity due to excess calories ([facility]) Elevated LFTs Other abnormal blood chemistry documented in this encounter Additional Health Concerns Assessment Noted Time PHQ-9 Depression Total Score: 13 023 8:53 AM AVIATION MAINTENANCE INSTRUCTOR documented as of this encounter Care Teams Service Now Developer Relationship Specialty Start Date End Date Kami Edmond PA-C [address] [place] [address]. [place] [address] PCP - General PHYSICIAN MATHEMATICS TEACHER 02/05/21 documented as of this encounter
--- OUTSIDE RECORDS SUMMARY | 2024-06-23 15:11 | XMS_ITS | Encounter Summary ---
Author Organization [facility] Address [address] [place] [address]. [place] [address] [place] [address] Care Team Providers Care Buggy Loader Name Role Phone Franny Dolan PA-C Primary Care Provider +1- [phone] Reason for Visit * Reason Comments PFT (SCAN) Encounter Details Date Type Department Care Team (Latest Contact Info) Description 12/22/2022 Scan [facility] Scanned, Doc Med Group PFT (SCAN) Social History Tobacco Use Types Packs/Day Years Used Date Smoking Tobacco: Former Cigarettes Q uit: 1997 Smokeless Tobacco: Never Alcohol Use Standard Drinks/Week Comments Not Currently 0 (1 standard drink = 0.6 oz pur e alcohol) holidays only PHQ-2 Answer Date Recorded Patient Health Questionnaire-2 Score 4 07/26/2022 Comments No Sex and Gender Information Value [...] [facility] Family Medicine - [place] [address] [place] [phone] Franny Dolan PA-C [address] [place] [address] documented as of this encounter Procedures Procedure Name Priority Date/Time Associated Diagnosis Comments PFT GENERIC (SCAN ORDER) 12/22/2022 documented in this encounter Results * PFT GENERIC (12/22/2022) 12/22/2022 us Doc Med Group Scanned SCANNING Final Resu lt documented in this encounter Visit Diagnoses Not on filedocumented in this encounter Additional Health Concerns Assessment Noted Time PHQ-9 Depression Total Score: 13 023 8:53 AM WOUND SPECIALIST documented as of this encounter Care Teams Buggy Loader Relationship Specialty Start Date End Date Franny Dolan PA-C [address] [place] [phone] PCP - General PHYSICIAN TRAVEL CLERK 02/05/21 documented as of this encounter
--- OUTSIDE RECORDS SUMMARY | 2024-06-23 15:11 | XMS_ITS | Encounter Summary ---
Author Organization [facility] Address [address] [place] [address]. [place], [place] [address] [place] [address] Care Team Providers Care Building Energy Consultant Name Role Phone Kami Edmond PA-C Primary Care Provider +1- [phone] Reason for Referral * Consultation (Routine) - Closed Specialty Diagnoses / Procedures Referred By Contpascual t Referred To Contact Sewer - Foot & Ankle Surgery / PODIATRY Diagnoses Encounter for nail care Procedures OFFICE/OUTPT VISIT,NEW,LEVL III OFFICE/OUTPT VISIT,NEW,LEVL IV OFFICE/OUTPT VISIT,NEW,LEVL V OFFICE/OUTPT VISIT,EST,LEVL III OFFICE/OUTPT VISIT,EST,LEVL IV OFFICE/OUTPT VISIT,EST,LEVL V Kami Edmond PA-C [address] [place] [address] Phone: tel: fax: Lakhwinder Whitehead DPM Phone: tel: fax: Referral ID Status Reason Start Date Expiration Date V isits Requested Visits Authorized [id number] Closed Specialty Services 01/30/2023 03/01/2024 99 99 * Imaging (Routine) - Closed Specialty Diagnoses / Procedures Referred By Contpascual t Referred To Contact RADIOLOGY Diagnoses Elevated LFTs Procedures US ABD LIMITED Kami Edmond PA-C [address] [place] [address] Phone: tel: fax: Referral ID Status Reason Start Date Expiration Date Visits Re quested Visits Authorized [id number] Closed 01/30/2023 01/31/2024 1 1 Reason for Visit * Reason Comments Hypertension Encounter Details Date Type Department Care Team (Late st Contact Info) Description 01/30/2023 11:20 AM CDT Office Visit [facility] Family Medicine - [place] [address] [place] [phone] Kami Edmond PA-C [address] [place] [address] Hypertension Social History Tobacco Use Types Packs/Day [...] Sign Reading Time Taken Comments Blood Pressure 145/90 01/30/2023 11:59 AM CDT Pulse 62 01/30/2023 11:17 AM CDT Temperature 36.4 ??C (97.5 ??F) 01/30/2023 1 1:17 AM CDT Respiratory Rate - - Oxygen Saturation 97% 01/30/2023 11: 17 AM CDT Inhaled Oxygen Concentration - - Weight 128.2 kg (282 lb 9.6 oz) 023 11:17 AM CDT Height - - Body Mass Index 48.51 01/03/2023 10:03 AM CDT documented in this encounter Progress Notes * Kami Edmond PA-C - 01/30/2023 11:20 AM CDT Reason for Visit: Hypertension History of Present Illness: Patient here for follow up diabetes/HTN/hyperlipidemia. Takes medications daily. Her diet hasn't been as good lately. Checks blood sugars daily. Fasting blood sugars usually 150-160. Last HgbA1C was 8.8. She needs referral to hydraulic riveter for diabetic nail care. She has been having left ear pain and drainage for a few days. Denies fever, congestion, sore throat, and cough. She has vertigo when she moves only, but thinks it is related to her ear pain. Denies any complaints. ROS: Review of Systems Constitutional: Negative for fever. HENT: Positive for ear discharge and ear pain. Negative for congestion and sore throat. Respiratory: Negative for shortness of breath. Cardiovascular: Negative for chest pain. Psychiatric/Behavioral: Negative for self-injury and suicidal ideas. All other systems reviewed and are negative. Medications: Current Outpatient Medications: acetaminophen CR 650 MG Tab CR 8 hr tablet, Take 1 tablet (650 mg total) by mouth., Disp: , Rfl: azithromycin (ZITHROMAX) 250 MG tablet, Take 2 tablets by mouth on day one then 1 daily for four days., Disp: 6 tablet, Rfl: 0 busPIRone (BUSPAR) 15 MG tablet, Take 1 tablet (15 mg total) by mouth 2 (two) times daily., Disp: 180 tablet, Rfl: 1 cetirizine (ZYRTEC) 10 MG tablet, Take 1 tablet (10 mg total) by mouth daily., Disp: 90 tablet, Rfl: 3 DULoxetine (CYMBALTA) 60 MG capsule, TAKE 1 [...] every morning., Disp: 90 tablet, Rfl: 1 levothyroxine (SYNTHROID) 100 MCG tablet, Take 1 tablet (100 mcg total) by mouth every morning., Disp: 90 tablet, Rfl: 1 meclizine (ANTIVERT) 12.5 MG tablet, Take 1 tablet (12.5 mg total) by mouth 3 (three) times daily as needed., Disp: 30 tablet, Rfl: 0 metFORMIN ER (GLUCOPHAGE-XR) 500 MG 24 hr [...] days. Indications: Diabetes, Disp: 3 mL, Rfl: 0 Review of patient's allergies indicates: Allergen Reactions Pollen Extract Runny Nose Dust Mite Extract Runny Nose Molds & Smuts Runny Nose Past Medical History: Diagnosis Date Depression Diabetes mellitus ([facility]HCC) ([facility]) Disease of thyroid gland Hypertension Polycythemia vera (HHS/HCC) ([facility]/HCC) Past Surgical History: Procedure Laterality Date BACK SURGERY COLONOSCOPY HC KIT BLADDER SLING/SUSPENSION 2014 HYSTERECTOMY 2001 LAPAROSCOPIC CHOLECYSTECTOMY 2003 Social History Socioeconomic History Marital status: Tobacco Use Smoking status: Former Types: Cigarettes Quit date: 1997 Years since quittin.6 Smokeless tobacco: Never Vaping Use Vaping Use: [...] Relation Name Age of Onset Diabetes Mother Diabetes Father Family Status Relation Name Status Mother Father Physical Exam Vitals reviewed. Constitutional: Appearance: Normal appearance. HENT: Head: Normocephalic. Right Ear: Tympanic membrane normal. Comments: Left TM red, blue tube present Mouth/Throat: Mucous membranes are moist. No posterior oropharyngeal erythema. Oropharynx is clear. Neck: Thyroid: No thyromegaly. Cardiovascular: Rate and Rhythm: Normal rate and regular rhythm. Pulmonary: Effort: Pulmonary effort is normal. Breath sounds: Normal breath sounds. Musculoskeletal: Right lower leg: No edema. Left lower leg: No edema. Neurological: Mental Status: She is alert. Psychiatric: Mood and Affect: Mood normal. Filed Vitals: 01/30/23 1117 01/30/23 1159 BP: (!) 158/72 (!) 145/90 Pulse: 62 Temp: 97.5 ??F (36.4 ??C) TempSrc: Temporal SpO2: 97% Weight: 128.2 kg (282 lb 9.6 oz) Diagnoses/Impression: 1. Elevated LFTs US ABD LIMITED 2. Type 2 diabetes mellitus with hyperglycemia, without long-term current use of insulin (HHS/HCC) ([facility]/HCC) semaglutide (OZEMPIC) 2 MG/3ML injection (PEN) glipiZIDE XL (GLUCOTROL XL) 10 MG 24 hr tablet metFORMIN ER (GLUCOPHAGE-XR) 500 MG 24 hr tablet 3. Mixed hyperlipidemia Fenofibrate 134 MG Cap 4. Essential hypertension hydroCHLOROthiazide (HYDRODIURIL) 25 MG tablet 5. Acquired hypothyroidism levothyroxine (SYNTHROID) 100 MCG tablet 6. Generalized anxiety disorder busPIRone (BUSPAR) 15 MG tablet 7. Encounter for nail care Ambulatory referral to Podiatry ([facility]) 8. Non-recurrent acute serous otitis media of left ear azithromycin (ZITHROMAX) 250 MG tablet 9. Vertigo meclizine (ANTIVERT) 12.5 MG tablet Recommendations and Plan: Discussed labs with patient. Continue same meds for hyperlipidemia, HTN, hypothyroid, and anxiety. Continue same meds for DM and add ozempic weekly for DM. Discussed diet and exercise for DM. She will have liver US for elevated LFTs and recommended weight loss for possible fatty liver. Discussed limiting salt and cafeine. Discussed monitoring blood pressure at home and call if above 140/90 consistently. Needs to bring blood pressure log to follow up appointment to review. Can also bring blood pressure machine to visit to check for accuracy in the office. She will take zpack for otitis media and follow up with her ENT if not better. She will follow up in 1-2 months. Orders Placed This Encounter Ambulatory referral to Podiatry ([facility]) US ABD LIMITED semaglutide (OZEMPIC) 2 MG/3ML injection (PEN) Fenofibrate 134 MG Cap glipiZIDE XL (GLUCOTROL XL) 10 MG 24 hr tablet hydroCHLOROthiazide (HYDRODIURIL) 25 MG tablet levothyroxine (SYNTHROID) 100 MCG tablet metFORMIN ER (GLUCOPHAGE-XR) 500 MG 24 hr tablet busPIRone (BUSPAR) 15 MG tablet azithromycin (ZITHROMAX) 250 MG tablet meclizine (ANTIVERT) 12.5 MG tablet Reviewed and updated this visit by provider: Tobacco Allergies Meds Problems Med Hx Surg Hx Fam Hx KAMI EDMOND PA-C Referring Provider: No ref. provider found PCP: KAMI EDMOND PA-C Cosigned by Alexx Pires II, MD at 01/30/2023 9:36 PM CDT documented in this encounter Plan of Treatment Upcoming Encounters Date Type Department Care Team (Late st Contact Info) Description 11/07/2024 9:40 AM CDT Office Visit [facility] Family Medicine - [address] [phone] Kami Edmond PA-C [address] [place] [phone] Scheduled Referrals Name Type Priority Associated Diagnoses Orde r Schedule Ambulatory referral to Podiatry ([facility]) Referral Routine Encounter for nail care Ordered: 01/30/2023 documented as of this encounter Results * US ABD LIMITED [...] in this encounter Visit Diagnoses Diagnosis Elevated LFTs- Primary Other abnormal blood chemistry Type 2 diabetes mellitus with hyperglycemia, without long-term current use of insulin ([facility] HHS/HCC) Mixed hyperlipidemia Essential hypertension Unspecified essential hypertension Acquired hypothyroidism Unspecified hypothyroidism Generalized anxiety disorder Encounter for nail care Non-recurrent acute serous otitis media of left ear Vertigo Dizziness and giddiness Elevated LFTs Other abnormal blood chemistry documented in this encounter Additional Health Concerns Assessment Noted Time PHQ-9 Depression Total Score: 13 023 8:53 AM REGISTERED NURSE NURSERY documented as of this encounter Care Teams Building Energy Consultant Relationship Specialty Start Date End Date Kami Edmond PA-C [address] [place] [address] PCP - General PHYSICIAN ACCOUNT ADMINISTRATOR 02/05/21 documented as of this encounter
--- OUTSIDE RECORDS SUMMARY | 2024-06-23 15:11 | XMS_ITS | Encounter Summary ---
Author Organization [facility] Address [address] [place] [address]. [place], [place] [id number] [place] [address] Care Team Providers Care Customer Specialist Name Role Phone Franny Dolan PA-C Primary Care Provider +1- [phone] Reason for Referral * Procedure (Routine) - Closed Specialty Diagnoses / Procedures Referred By Contac t Referred To Contact Diagnoses Chronic cough Dyspnea, unspecified type Procedures Complete PFT (pre/post [place], Lung Vol, Diff Capacity) (08794, 41911, 86674, 54191) Franny Dolan PA-C [address] [place] [address] Phone: tel: fax: Referral ID Status Reason Start Date Expiration Date Visits Re quested Visits Authorized [id number] Closed 08/17/2022 09/17/2023 1 1 Reason for Visit * Procedure (Routine) - Closed Specialty Diagnoses / Procedures Referred By Contac t Referred To Contact Diagnoses Chronic cough Dyspnea, unspecified type Procedures Complete PFT (pre/post [place], Lung Vol, Diff Capacity) (33893, 83236, 63644, 32535) Franny Dolan PA-C [address] [place] [address] Phone: tel: fax: Referral ID Status Reason Start Date Expiration Date Visits Re quested Visits Authorized [id number] Closed 08/17/2022 09/17/2023 1 1 Encounter Details Date Type Department Care Team (Late st Contact Info) Description 12/22/2022 5:35 AM CDT - 12/22/2022 11:59 PM CDT Hospital Encounter [facility] Respiratory Therapy [address] [place] [address] Franny Dolan PA-C [address] [place] [address] Discharge Disposition: Home or Self Care (Routine [...] tablet by mouth 3 (three) times daily. Multiple Vitamin (MULTIVITAMIN) capsule Take 1 capsule by mouth daily. busPIRone (BUSPAR) 15 MG tabletIndications:Ge neralized anxiety disorder Take 1 tablet (15 mg total) by mouth 2 (two) times daily. 180 tablet 1 08/17/2022 3 cetirizine (ZYRTEC) 10 MG tabletIndications:Al lergies Take 1 tablet (10 mg total) by mouth daily. 90 tablet 3 02/14/2022 3 DULoxetine (CYMBALTA) 60 MG capsuleIndications:A nxiety,Moderate episode of recurrent major depressive disorder ([facility] HHS/HCC) TAKE 1 CAPSULE(60 MG) BY MOUTH DAILY 90 capsule 1 07/04/2022 3 fenofibrate micronized 134 MG capsuleIndications:M ixed hyperlipidemia Take 1 capsule (134 mg total) by mouth daily. with food. 90 capsule 3 01/05/2022 3 glipiZIDE XL (GLUCOTROL XL) 10 MG 24 hr tabletIndications:Ty pe 2 diabetes mellitus without complication, without long-term current use of insulin ([facility] HHS/HCC) TAKE 1 TABLET BY MOUTH TWICE DAILY. DO NOT BREAK OR CRUSH TABLET 180 tablet 1 09/15/2022 3 hydroCHLOROthiazide (HYDRODIURIL) 25 MG tabletIndications:Es sential hypertension TAKE 1 TABLET(25 MG) BY MOUTH EVERY MORNING 30 tablet 5 06/28/2022 3 levothyroxine (SYNTHROID) 100 MCG tabletIndications:Ac quired hypothyroidism TAKE 1 TABLET BY MOUTH EVERY MORNING 90 tablet 1 11/03/2022 3 metFORMIN ER (GLUCOPHAGE XR) 500 MG 24 hr tabletIndications:Ty pe 2 diabetes mellitus without complication, without long-term current use of insulin ([facility] HHS/HCC) Take 1 tablet (500 mg total) by mouth daily with breakfast. 30 tablet 5 05/30/2022 3 nystatin (MYCOSTATIN) powderIndications:Ye ast infection of the skin Apply topically 3 (three) times daily. 60 g 1 05/30/2022 4 documented as of this encounter Procedure Notes * Jessi Pineda MD - 12/22/2022 6:00 AM CDTAssociated Order(s): PULMONARY FUNCTION TEST [facility] PULMONARY FUNCTION TEST REPORT Kristal Bustos INTERPRETATION Please see scanned PFT report for raw values, flow-volume loop, and therapist's comments. Spirometry: Prebronchodilator FVC 3.00 L, 102% predicted. FEV1 2.31 L, 100% predicted. FEV1/FVC 77%. Postbronchodilator FVC 2.83 L, 96% predicted. FEV1 2.24 L, 97% predicted. FEV1/FVC 79%. Less than significant response to bronchodilator. Lung volumes: TLC 93% predicted, RV 83% predicted, ERV 149% predicted. Diffusing capacity: Unadjusted DLCO 103% predicted. IMPRESSION: 1. Spirometry within normal limits 2. Less than significant response to bronchodilators this does not preclude use, clinical correlation advised 3. Total lung capacity within normal limits 4. Unadjusted DLCO within normal limits JESSI PINEDA MD documented in this encounter Plan of Treatment Upcoming Encounters Date Type Department Care Team (Late st Contact Info) Description 11/07/2024 9:40 AM CDT Office Visit [facility] Family Medicine - [place] [address] [place] [phone] Franny Dolan PA-C [address] [place] [address] documented as of this encounter Procedures Procedure Name Priority Date/Time Associated Diagnosis Comments PULMONARY FUNCTION TEST Routine 12/22/2022 6:00 AM CDT Chronic cough Dyspnea, unspecified type documented in this encounter Results * Complete PFT (pre/post [place], Lung Vol, Diff Capacity) (22166, 10068, 17216, 83780) (12/22/2022 6:00 AM CDT) Narrative [facility] - 12/22/2022 6:00 AM CDT Jessi Pineda MD ? 12/25/2022 ??8:46 AM ?? [facility] PULMONARY FUNCTION TEST REPORT Kristal Bustos INTERPRETATION Please see scanned PFT report for raw values, flow-volume loop, and therapist's comments. Spirometry: Prebronchodilator FVC 3.00 L, 102% predicted. ??FEV1 2.31 L, 100% predicted. ??FEV1/FVC 77%. Postbronchodilator FVC 2.83 L, 96% predicted. ??FEV1 2.24 L, 97% predicted. ??FEV1/FVC 79%. Less than significant response to bronchodilator. Lung volumes: TLC 93% predicted, RV 83% predicted, ERV 149% predicted. Diffusing capacity: Unadjusted DLCO 103% predicted. IMPRESSION: 1. ??Spirometry within normal limits 2. ??Less than significant response to bronchodilators this does not preclude use, clinical correlation advised 3. ??Total lung capacity within normal limits 4. ??Unadjusted DLCO within normal limits JESSI PINEDA MD Procedure Note Jessi Pineda MD - 12/22/2022 6:00 AM CDT [facility] PULMONARY FUNCTION TEST REPORT Kristal Bustos INTERPRETATION Please see scanned PFT report for raw values, flow-volume loop, andtherapist's comments. Spirometry: Prebronchodilator FVC 3.00 L, 102% predicted. FEV1 2.31 L, 100%predicted. FEV1/FVC 77%. Postbronchodilator FVC 2.83 L, 96% predicted. FEV1 2.24 L, 97% predicted.FEV1/FVC 79%. Less than significant response to bronchodilator. Lung volumes: TLC 93% predicted, RV 83% predicted, ERV 149% predicted. Diffusing capacity: Unadjusted DLCO 103% predicted. IMPRESSION: 1. Spirometry within normal limits 2. Less than significant response to bronchodilators this does notpreclude use, clinical correlation advised 3. Total lung capacity within normal limits 4. Unadjusted DLCO within normal limits JESSI PINEDA MD us Franny Dolan PA-C PFT ORDERABLES Final Resu lt [facility] [address] [place] [address], [place] [phone] documented in this encounter Visit Diagnoses Diagnosis Chronic cough Cough Dyspnea, unspecified type documented in this encounter Administered Medications Inactive Administered Medications - up to 3 most recent administrations Medication Order MAR Action Action Date Dose Rate Site albuterol sulfate HFA 108 (90 Base) MCG/ACT inhaler 2 puff 2 puff, Inhalation, Once, 1 dose, On Dara 12/22/22 at 0600 Given 12/22/2022 6:10 AM CDT 2 puffs documented in this encounter Additional Health Concerns Assessment Noted Time PHQ-9 Depression Total Score: 13 023 8:53 AM SERVER SECURITY ADMINISTRATOR documented as of this encounter Care Teams Customer Specialist Relationship Specialty Start Date End Date Franny Dolan PA-C [address] [place] [address]. [place] [address] PCP - General PHYSICIAN ENGINE TURNER 02/05/21 documented as of this encounter
--- OUTSIDE RECORDS SUMMARY | 2024-06-23 15:11 | XMS_ITS | Encounter Summary ---
Author Organization [facility] Address [address] [place] [address]. [place] [address] [place] [address] Care Team Providers Care Manual Equipment Mechanic Name Role Phone Franny Dolan PA-C Primary Care Provider +1- [phone] Reason for Visit * Reason Comments New Patient Pt here for toenail fungus left foot. Thinks she may have injured it a while ago. * Consultation (Routine) - Closed Specialty Diagnoses / Procedures Referred By Michelle lozano Referred To Contact Carpet Technician - Foot & Ankle Surgery / PODIATRY Diagnoses Encounter for nail care Procedures OFFICE/OUTPT VISIT,NEW,LEVL III OFFICE/OUTPT VISIT,NEW,LEVL IV OFFICE/OUTPT VISIT,NEW,LEVL V OFFICE/OUTPT VISIT,EST,LEVL III OFFICE/OUTPT VISIT,EST,LEVL IV OFFICE/OUTPT VISIT,EST,LEVL V Franny Dolan PA-C [address] [place] [address] Phone: tel: fax: Lakhwinder Whitehead DPM Phone: tel: fax: Referral ID Status Reason Start Date Expiration Date V isits Requested Visits Authorized [id number] Closed Specialty Services 01/30/2023 03/01/2024 99 99 Encounter Details Date Type Department Care Team (Late st Contact Info) Description 02/13/2023 10:00 AM CDT Office Visit [facility] - [place] [address] [place] [address] Adore Barahona NP-C [address] [place] [address] New Patient (Pt here for toenail fungus left foot. Thinks she may have injured it a while ago. ) Social History Tobacco Use Types Packs/Day Years Used Date Smoking Tobacco: Former Cigarettes Q uit: 1997 Smokeless Tobacco: Never Tobacco Cessation:Counseling Given: No Alcohol Use Standard Drinks/Week Comments Not Currently [...] Sign Reading Time Taken Comments Blood Pressure 164/90 02/13/2023 10:22 AM CDT Pulse 59 02/13/2023 10:22 AM CDT Temperature - - Respiratory Rate - - Oxygen Saturation 97% 02/13/2023 10:22 AM CDT Inhaled Oxygen Concentration - - Weight 125.6 kg (277 lb) 02/13/2023 10:22 AM CDT Height 162.6 cm (5' 4 ) 02/13/2023 10:22 AM CDT Body Mass Index 47.55 02/13/2023 10:22 AM CDT documented in this encounter Progress Notes * DIMAS Landry - 02/13/2023 10:00 AM CDTSummary: gc Podiatry Visit Form Reason for Visit: New Patient (Pt here for toenail fungus left foot. Thinks she may have injured it a while ago. ) History of Present Illness: Patient is here today for diabetic foot check and concerns for thick toenail and fungal infection. Last hgb A1c was 8.2. She does check feet daily. He/She does/doesn't moisturize feet daily. ROS: Review of Systems All other systems reviewed and are negative. [...] every morning., Disp: 90 tablet, Rfl: 1 metFORMIN ER [...] Indications: Diabetes, Disp: 3 mL, Rfl: 0 azithromycin (ZITHROMAX) 250 MG tablet, Take 2 tablets by mouth on day one then 1 daily for four days., Disp: 6 tablet, Rfl: 0 Review of patient's allergies indicates: Allergen Reactions Pollen Extract Runny Nose Dust Mite Extract Runny Nose Molds & Smuts Runny Nose Past Medical History: Diagnosis Date Chronic kidney disease Depression Diabetes mellitus ([facility]/HCC) ([facility]) Disease of thyroid gland Hypertension Polycythemia vera ([facility]/HCC) ([facility]) Past Surgical History: Procedure Laterality Date BACK SURGERY COLONOSCOPY FOOT FRACTURE SURGERY 1997 Metatarsal HC KIT BLADDER SLING/SUSPENSION 2014 HYSTERECTOMY 2000 LAPAROSCOPIC CHOLECYSTECTOMY 2002 Social History Socioeconomic History Marital status: Tobacco Use Smoking status: Former Types: Cigarettes Quit date: 1997 Years since quittin.6 Smokeless tobacco: Never Vaping Use Vaping Use: Never used Substance and Sexual Activity Alcohol use: Not Currently Comment: holidays only Drug use: Never Family History Problem Relation Name Age of Onset Diabetes Mother Hypertension Mother Heart Disease Mother Diabetes Father Hypertension Father Heart Disease Father Lung Disease Father Other (breast cancer) Sister Cervical cancer Sister Liver cancer Brother Constitutional: No distress Psych: Mood & Effect: Oriented To: person, place, time Vascular: Dorsalis pedis, posterior tibial pulse 2/4 bilateral. CFT less than 3 seconds bilateral digits 1-5 bilateral. Musculoskeletal: Dorsiflexors, plantar flexors, inverters and everters to both lower extremities 5/5 bilateral and symmetrical. Pronation bilateral. Range of Motion: Subtalar, midtarsal and MTPJ range of motion normal bilateral and symmetrical. Decreased ankle joint dorsiflexion bilateral. Gait/Station: Stable Dermatologic Inspection: Normal hair growth and good skin turgor. Nails: Left 4th nail thick and discolored Neurologic: Sharp, dull sensations are intact bilateral. DTRs are normal bilateral and symmetrical.Normal plantar response. Diagnoses/Impression: 1. Type 2 diabetes mellitus with diabetic polyneuropathy, without long-term current use of insulin ([facility]) ([facility]) 2. Onychomycosis 3. Onychogryphosis 4. Callus of foot Recommendations and Plan: Pathology and treatment options were discussed with the patient today. GAS sent. Use Cerave SA to heels and other severe dry areas. Patient was educated on importance of moisturizing feet twice a dayand checking feet daily for any callus or other skin changes. The importance of good glycemic control discussed. Follow-up in 6-12 months for DM foot check-sooner if needed. ADORE BARAHONA documented in this encounter Plan of Treatment Upcoming Encounters Date Type Department Care Team (Late st Contact Info) Description 11/07/2024 9:40 AM CDT Office Visit [facility] Family Medicine - [place] [address] [place] [address] Franny Dolan PA-C [address] [place] [address] documented as of this encounter Results * Pathology (02/15/2023 12:00 AM CDT) COPATH REPORT ?[facility] ? [address] ? [place], [place] ??[id number] ? [id number] ? Department of Pathology ? Pathology Report ? SURGICAL FINAL REPORT Patient Name: ALICIA BOYCE ? : 1955 (Age: 67) ? Location: [facility] Gender: F ?Collected Date: 02/15/2023 [facility] Rec #: [id number] ?Date Received: 02/15/2023 Date Reported: 02/16/2023 Provider: AODRE COCHRAN Specimen(s) Toenail Final Pathologic Diagnosis TOENAIL CLIPPINGS: ? PARAKERATOTIC SCALE ? GMS STAIN IS POSITIVE FOR HYPHAE FUNGAL FORMS Electronically Signed Out ? JEMIMA MELARA MD Pathologist ATB:pb Microscopic Description: GMS stain is examined. The special stain control(s) performed as expected. Clinical History Onychomycosis Gross Description Received is a single formalin-filled container labeled with the patient's name (Alicia Boyce), date of (1955), and additionally labeled toenail clippings. ??The specimen consists of seven fragments of friable white-mullen to yellow-white nail, ranging from 0.3 cm up to 1.7 cm in greatest dimension, with a thickness up to 0.2 cm. ??The specimen is submitted in toto in following fixation with DINO. :pb Billing Fee Code(s): 84854, [address] [facility] 02/15/2023 02/15/2023 11: 00 AM CDT Comment:Toenail us Adore Barahona CUTTER INSPECTOR-C PATHOLOGY/CYTOLOGY ORDERABL ES Final Result [facility] [address] [place] [address], documented in this encounter Visit Diagnoses Diagnosis Type 2 diabetes mellitus with diabetic polyneuropathy, without long-term current use of insulin ([facility])- Primary Onychomycosis Dermatophytosis of nail Onychogryphosis Other specified disease of nail Callus of foot Corns and callosities documented in this encounter Additional Health Concerns Assessment Noted Time PHQ-9 Depression Total Score: 13 023 8:53 AM AIR EXPORT AGENT documented as of this encounter Care Teams Manual Equipment Mechanic Relationship Specialty Start Date End Date Franny Dolan PA-C [address] [place] [address] PCP - General PHYSICIAN GARMENT FINISHER 02/05/21 documented as of this encounter
--- OUTSIDE RECORDS SUMMARY | 2024-06-23 15:11 | XMS_ITS | Encounter Summary ---
Author Organization [facility] Address [address] [place] [address]. [place] [address] [place] [address] Care Team Providers Care Film Archivist Name Role Phone Franny Dolan PA-C Primary Care Provider +1- [phone] Reason for Visit * Reason Comments ECG (SCAN) Encounter Details Date Type Department Care Team (Latest Contact Info) Description 02/17/2023 Scan [facility] HE[facility] INFO SRVCS Scanned, Doc Med Group ECG (SCAN) Social History Tobacco Use Types Packs/Day [...] Description 11/07/2024 9:40 AM CDT Office Visit [facility] Family Medicine - [place] [address] [place] [phone] Franny Dolan PA-C [address] [place] [address] documented as of this encounter Procedures Procedure Name Priority Date/Time Associated Diagnosis Comments ECG GENERIC (SCAN ORDER) 02/17/2023 documented in this encounter Results * ECG GENERIC (02/17/2023) 02/17/2023 us Doc Med Group Scanned SCANNING Final Resu lt documented in this encounter Visit Diagnoses Not on filedocumented in this encounter Additional Health Concerns Assessment Noted Time PHQ-9 Depression Total Score: 13 023 8:53 AM REDUCER documented as of this encounter Care Teams Film Archivist Relationship Specialty Start Date End Date Franny Dolan PA-C [address] [place] [phone] PCP - General PHYSICIAN MACHINE LEARNING INTERN 02/05/21 documented as of this encounter
--- OUTSIDE RECORDS SUMMARY | 2024-06-23 15:11 | XMS_ITS | Encounter Summary ---
Author Organization [facility] Address [address] [place] [address]. [place], [place] [address] [place] [address] Care Team Providers Care Electrical Engineering Technologist Name Role Phone Franny Dolan PA-C Primary Care Provider +1- [phone] Encounter Details Date Type Department Care Team (Latest Contact Info) Description 09/22/2022 Scan [facility] INFO SRVCS Scanned, Doc Med Group Social History Tobacco Use Types Packs/Day Years Used Date Smoking Tobacco: Former Cigarettes Q uit: 1997 Smokeless Tobacco: Never Alcohol Use Standard Drinks/Week Comments Yes 0 (1 standard drink = 0.6 oz [...] Description 11/07/2024 9:40 AM CDT Office Visit [facility] Family Medicine - [place] [address] [place] [phone] Franny Dolan PA-C [address] [place] [address] documented as of this encounter Visit Diagnoses Not on filedocumented in this encounter Additional Health Concerns Assessment Noted Time PHQ-9 Depression Total Score: 13 023 8:53 AM PELOTA MAKER documented as of this encounter Care Teams Electrical Engineering Technologist Relationship Specialty Start Date End Date Franny Dolan PA-C [address] [place] [address] PCP - General PHYSICIAN HIGH SCHOOL SOCIAL STUDIES TEACHER 02/05/21 documented as of this encounter
--- OUTSIDE RECORDS SUMMARY | 2024-06-23 15:11 | XMS_ITS | Encounter Summary ---
Author Organization [facility] Address [address] [place] [address]. [place], [place] [address] [place] [address] Care Team Providers Care [place] Police Lieutenant Name Role Phone Franny Dolan PA-C Primary Care Provider +1- [phone] Encounter Details Date Type Department Care Team (Latest Contact Info) Description 12/22/2022 Travel Social History Tobacco Use Types Packs/Day [...] Description 11/07/2024 9:40 AM CDT Office Visit [facility] Family Medicine - [place] [address] [place] [phone] Franny Dolan PA-C [address] [place] [phone] documented as of this encounter Visit Diagnoses Not on filedocumented in this encounter Additional Health Concerns Assessment Noted Time PHQ-9 Depression Total Score: 13 023 8:53 AM STEAM STATION SUPERVISOR documented as of this encounter Care Teams [place] [employer] Lieutenant Relationship Specialty Start Date End Date Franny Dolan PA-C [address] [place] [address] PCP - General PHYSICIAN PIERCING MACHINE OPERATOR 02/05/21 documented as of this encounter
--- OUTSIDE RECORDS SUMMARY | 2024-06-23 15:11 | XMS_ITS | Encounter Summary ---
Author Organization [facility] Address [address] [place] [address]. [place] [address] [place] [address] Care Team Providers Care Switchboard Operator Supervisor Name Role Phone Franny Dolan PA-C Primary Care Provider +1- [phone] Reason for Visit * Reason Comments Image (SCAN) Encounter Details Date Type Department Care Team (Latest Contact Info) Description 09/10/2022 Scan HEALTH INFO SRVCS Scanned, Doc Med [...] on file Sexual Orientation Not on file COVID-19 Exposure Response Date Recorded In the last 10 days, have yo u been in contact with someone who was confirmed or suspected to have Coronavirus/COVID-19? No / Unsure 08/17/2022 10:34 AM GAS BLENDER documented as of this encounter Plan of Treatment Upcoming Encounters Date Type Department Care Team (Late st Contact Info) Description 11/07/2024 9:40 AM CDT Office Visit [facility] Family Medicine - [place] [address] [place] [phone] Franny Dolan PA-C [address] [place] [address] documented as of this encounter Procedures Procedure Name Priority Date/Time Associated Diagnosis Comments IMAGE GENERIC 09/10/2022 documented in this encounter Results * IMAGE GENERIC (09/10/2022) Anatomical Region Laterality Modality Other 09/10/2022 us Doc Med Group Scanned SCANNING Final Resu lt documented in this encounter Visit Diagnoses Not on filedocumented in this encounter Additional Health Concerns Assessment Noted Time PHQ-9 Depression Total Score: 13 023 8:53 AM GAS BLENDER documented as of this encounter Care Teams Switchboard Operator Supervisor Relationship Specialty Start Date End Date Franny Dolan PA-C [address] [place] [address] [place] [address] PCP - General PHYSICIAN FOOTWEAR STITCHER 02/05/21 documented as of this encounter
--- OUTSIDE RECORDS SUMMARY | 2024-06-23 15:11 | XMS_ITS | Encounter Summary ---
Author Organization [facility] Address [address] [place] [address]. [place], [place] [phone] [place] [address] Care Team Providers Care Storm Sash Maker Name Role Phone Franny Dolan PA-C Primary Care Provider +1- [phone] Encounter Details Date Type Department Care Team (Latest Contact Info) Description 09/20/2022 Scan [facility] HE[facility] INFO SRVCS Scanned, Doc [...] Description 11/07/2024 9:40 AM CDT Office Visit [facility] Family Medicine - [place] [address] [place] [phone] Franny Dolan PA-C [address] [place] [address] documented as of this encounter Visit Diagnoses Not on filedocumented in this encounter Additional Health Concerns Assessment Noted Time PHQ-9 Depression Total Score: 13 023 8:53 AM RESEARCH LIBRARIAN documented as of this encounter Care Teams Storm Sash Maker Relationship Specialty Start Date End Date Franny Dolan PA-C [address] [place] [address] PCP - General PHYSICIAN CHARGING OPERATOR 02/05/21 documented as of this encounter
--- OUTSIDE RECORDS SUMMARY | 2024-06-23 15:11 | XMS_ITS | Encounter Summary ---
Author Organization [facility] Address [address] [place] [address]. [place], [place] [address] [place] [address] Care Team Providers Care Electronic Gaming Device Supervisor Name Role Phone Franny Dolan PA-C Primary Care Provider +1- [phone] Encounter Details Date Type Department Care Team (Latest Contact Info) Description 02/13/2023 Travel Social History Tobacco Use Types Packs/Day [...] [facility] Family Medicine - [place] [address] [place] [phone] Franny Dolan PA-C [address] [place] [address] [phone] documented as of this encounter Visit Diagnoses Not on filedocumented in this encounter Additional Health Concerns Assessment Noted Time PHQ-9 Depression Total Score: 13 023 8:53 AM PLATE ROLLER documented as of this encounter Care Teams Electronic Gaming Device Supervisor Relationship Specialty Start Date End Date Franny Dolan PA-C [address] [place] [phone] PCP - General PHYSICIAN GUIDE TOUR 02/05/21 documented as of this encounter
--- OUTSIDE RECORDS SUMMARY | 2024-06-23 15:11 | XMS_ITS | Encounter Summary ---
Author Organization [facility] Address [address] [place] [address]. [place] [address] [place] [address] Care Team Providers Care Game Programer Name Role Phone Franny Dolan PA-C Primary Care Provider +1- [phone] Encounter Details Date Type Department Care Team (Latest Contact Info) Description 10/18/2022 Travel Social History Tobacco Use Types Packs/Day [...] suspected to have Coronavirus/COVID-19? No / Unsure 10/18/2022 11:20 AM CDT documented as of this encounter Plan of Treatment Upcoming Encounters Date Type Department Care Team (Late st Contact Info) Description 11/07/2024 9:40 AM CDT Office Visit [facility] Family Medicine - [place] [address] [place] [phone] Franny Dolan PA-C [address] [place] [address] documented as of this encounter Visit Diagnoses Not on filedocumented in this encounter Additional Health Concerns Assessment Noted Time PHQ-9 Depression Total Score: 13 023 8:53 AM CREDIT REPORT CHECKER documented as of this encounter Care Teams Game Programer Relationship Specialty Start Date End Date Franny Dolan PA-C [address] [place] [address] PCP - General PHYSICIAN MATERIAL HANDLING CREW SUPERVISOR 02/05/21 documented as of this encounter
--- OUTSIDE RECORDS SUMMARY | 2024-06-23 15:11 | XMS_ITS | Encounter Summary ---
Author Organization [facility] Address [address] [place] [address]. [place], [place] [address] [place] [address] Care Team Providers Care Lead Web Application Developer Name Role Phone Franny Dolan PA-C Primary Care Provider +1- [phone] Encounter Details Date Type Department Care Team (Latest Contact Info) Description 01/30/2023 Travel Social History Tobacco Use Types Packs/Day [...] Description 11/07/2024 9:40 AM CDT Office Visit [facility] Family Medicine - [place] [address] [place] [phone] Franny Dolan PA-C [address] [place] [address] [phone] documented as of this encounter Visit Diagnoses Not on filedocumented in this encounter Additional Health Concerns Assessment Noted Time PHQ-9 Depression Total Score: 13 023 8:53 AM MAINTENANCE REPRESENTATIVE documented as of this encounter Care Teams Lead Web Application Developer Relationship Specialty Start Date End Date Franny Dolan PA-C [address] [place] [address] PCP - General PHYSICIAN FREEZING MACHINE OPERATOR 02/05/21 documented as of this encounter
--- OUTSIDE RECORDS SUMMARY | 2024-06-23 15:11 | XMS_ITS | Encounter Summary ---
Author Organization [facility] Address [address] [place] [address]. [place], [place] [address] [place] [address] Care Team Providers Care Seismic Prospecting Supervisor Name Role Phone Franny Dolan PA-C Primary Care Provider +1- [phone] Encounter Details Date Type Department Care Team (Latest Contact Info) Description 01/03/2023 Travel Social History Tobacco Use Types Packs/Day [...] Description 11/07/2024 9:40 AM CDT Office Visit [facility] Family Medicine - [place] [address] [place] [phone] Franny Dolan PA-C [address] [place] [address] [phone] documented as of this encounter Visit Diagnoses Not on filedocumented in this encounter Additional Health Concerns Assessment Noted Time PHQ-9 Depression Total Score: 13 023 8:53 AM DINING SERVICE SUPERVISOR documented as of this encounter Care Teams Seismic Prospecting Supervisor Relationship Specialty Start Date End Date Franny Dolan PA-C [address] [place] [address] PCP - General PHYSICIAN RN REHABILITATION 02/05/21 documented as of this encounter
--- OUTSIDE RECORDS SUMMARY | 2024-06-23 15:11 | XMS_ITS | Encounter Summary ---
Author Organization [facility] Address [address] [place] [address]. [place], [place] [address] [place] [address] Care Team Providers Care Clay Miller Name Role Phone Franny Dolan PA-C Primary Care Provider +1- [phone] Encounter Details Date Type Department Care Team (Latest Contact Info) Description 02/14/2023 5:49 PM CDT - 02/14/2023 11:59 PM CDT Hospital Encounter [facility] [address] [place] [address] Adore Wise, RIP AND GROOVE MACHINE OPERATOR-C [address] [place] [address] Discharge Disposition: Home or Self Care (Routine [...] capsule Take 1 capsule by mouth daily. azithromycin (ZITHROMAX) 250 MG tabletIndications:No n-recurrent acute serous otitis media of left ear Take 2 tablets by mouth on day one then 1 daily for four days. 6 tablet 01/30/2023 3 busPIRone (BUSPAR) 15 MG tabletIndications:Ge neralized anxiety disorder Take 1 tablet (15 mg total) by mouth 2 (two) times daily. 180 tablet 1 01/30/2023 4 cetirizine (ZYRTEC) 10 MG tabletIndications:Al lergies Take 1 tablet (10 mg total) by mouth daily. 90 tablet 3 02/14/2022 3 DULoxetine (CYMBALTA) 60 MG capsuleIndications:A nxiety,Moderate episode of recurrent major depressive disorder ([facility]/HCC HHS/HCC) TAKE 1 CAPSULE(60 MG) BY MOUTH DAILY 90 capsule 1 07/04/2022 3 Fenofibrate 134 MG CapIndications:Mixed hyperlipidemia Take 1 capsule by mouth daily with breakfast. 90 capsule 1 01/30/2023 4 glipiZIDE XL (GLUCOTROL XL) 10 MG 24 hr tabletIndications:Ty pe 2 diabetes mellitus with hyperglycemia, without long-term current use of insulin ([facility] HHS/HCC) TAKE 1 TABLET BY MOUTH TWICE DAILY. DO NOT BREAK OR CRUSH TABLET 180 tablet 1 01/30/2023 4 hydroCHLOROthiazide (HYDRODIURIL) 25 MG tabletIndications:Es sential hypertension Take 1 tablet (25 mg total) by mouth every morning. 90 tablet 1 01/30/2023 3 levothyroxine (SYNTHROID) 100 MCG tabletIndications:Ac quired hypothyroidism Take 1 tablet (100 mcg total) by mouth every morning. 90 tablet 1 01/30/2023 3 metFORMIN ER (GLUCOPHAGE-XR) 500 MG 24 hr tabletIndications:Ty pe 2 diabetes mellitus with hyperglycemia, without long-term current use of insulin ([facility]/HCC [facility]/HCC) Take 2 tablets (1,000 mg total) by mouth daily with breakfast. 90 tablet 1 01/30/2023 3 nystatin (MYCOSTATIN) powderIndications:Ye ast infection of the skin Apply topically 3 (three) times daily. 60 g 1 05/30/2022 4 semaglutide (OZEMPIC) 2 MG/3ML injection (PEN)Indications:Valentine betes Mellitus Inject 0.25 mg into the skin every 7 days. Indications: Diabetes 3 mL 01/30/2023 3 documented as of this encounter Plan of Treatment Upcoming Encounters Date Type Department Care Team (Late st Contact Info) Description 11/07/2024 9:40 AM CDT Office Visit [facility] Family Medicine - [place] [address] [place] [phone] Franny Dolan PA-C [address] [place] [address] documented as of this encounter Procedures Procedure Name Priority Date/Time Associated Diagnosis Comments PATHOLOGY Routine 02/15/2023 12:00 AM CDT Onychomycosis documented in this encounter Results * Pathology (02/15/2023 12:00 AM CDT) COPATH REPORT ?[facility] ? [address] [facility]. ? [place], [place] ??[address] ? [id number] ? Department of Pathology ? Pathology Report ? SURGICAL FINAL REPORT Patient Name: ALICIA BOYCE ? : 1955 (Age: 67) ? Location: [facility] Gender: F ?Collected Date: 02/15/2023 Med Rec #: [id number] ?Date Received: 02/15/2023 Date Reported: 02/16/2023 Provider: ADORE COCHRAN Specimen(s) Toenail Final Pathologic Diagnosis TOENAIL [...] fixation with DINO. :pb Billing Fee Code(s): 51909, [address]179 [facility] 02/15/2023 02/15/2023 11: 00 AM CDT Comment:Toenail us Adore Wise RIP AND GROOVE MACHINE OPERATOR-C PATHOLOGY/CYTOLOGY ORDERABL ES Final Result [facility] [address] [place] [address], documented in this encounter Visit Diagnoses Diagnosis Onychomycosis Dermatophytosis of nail documented in this encounter Additional Health Concerns Assessment Noted Time PHQ-9 Depression Total Score: 13 023 8:53 AM ADULT LITERACY INSTRUCTOR documented as of this encounter Care Teams Clay Miller Relationship Specialty Start Date End Date Franny Dolan PA-C [address] [place] [address] [phone] PCP - General PHYSICIAN SEISMIC INTERPRETER 02/05/21 documented as of this encounter
--- OUTSIDE RECORDS SUMMARY | 2024-06-23 15:11 | XMS_ITS | Encounter Summary ---
Author Organization [facility] Address [address] [place] [address]. [place] [address] [place] [address] Care Team Providers Care Gasoline Engine Inspector Name Role Phone Franny Dolan PA-C Primary Care Provider +1- [phone] Encounter Details Date Type Department Care Team (Late st Contact Info) Description 12/27/2022 Universal Roboticst Message Enc [address] [phone] Franny Dolan PA-C [address] [place] [address] results Social History Tobacco Use Types [...] Description 11/07/2024 9:40 AM CDT Office Visit [address] [phone] Franny Dolan PA-C [address] [place] [address] documented as of this encounter Visit Diagnoses Not on filedocumented in this encounter Additional Health Concerns Assessment Noted Time PHQ-9 Depression Total Score: 13 023 8:53 AM RN CLINICAL documented as of this encounter Care Teams Gasoline Engine Inspector Relationship Specialty Start Date End Date Franny Dolan PA-C [address] [place] [address] PCP - General PHYSICIAN TOOL AND DIE ENGINEER 02/05/21 documented as of this encounter
--- OUTSIDE RECORDS SUMMARY | 2024-06-23 15:11 | XMS_ITS | Encounter Summary ---
Author Organization [facility] Address [address] [place] [address]. [place], [place] [address] [place] [address] Care Team Providers Care Employment Training Specialist Name Role Phone Kami Edmond PA-C Primary Care Provider +1- [phone] Reason for Referral * Consultation (Routine) - Closed Specialty Diagnoses / Procedures Referred By Contact Referred To Contact GASTROENTEROLOGY Diagnoses Screening for colon cancer History of colon polyps Procedures OFFICE/OUTPT VISIT,NEW,LEVL III OFFICE/OUTPT VISIT,NEW,LEVL IV OFFICE/OUTPT VISIT,NEW,LEVL V OFFICE/OUTPT VISIT,EST,LEVL III OFFICE/OUTPT VISIT,EST,LEVL IV OFFICE/OUTPT VISIT,EST,LEVL V Kami Edmond PA-C [address] [place] [address] Phone: tel: fax: [facility] - [facility] [address] [facility], [address] [place] [address] Phone: tel: fax: Referral ID Status Reason Start Date Expiration Date Visits Re quested Visits Authorized [id number] Closed 10/18/2022 11/19/2023 1 1 Scheduling Instructions Needs repeat colonoscopy * Imaging (Routine) - Closed Specialty Diagnoses / Procedures Referred By Contac t Referred To Contact RADIOLOGY Diagnoses Screening mammogram, encounter for Procedures MG SCREENING W JUAN WENDY DIGI Kami Edmond PA-C [address] [place] [address] Phone: tel: fax: [facility] [address] [facility] [address] [place] [address] Phone: tel: fax: Referral ID Status Reason Start Date Expiration Date V isits Requested Visits Authorized [id number] Closed Mammogram 10/18/2022 10/19/2023 99 99 Reason for Visit * Reason Comments Hypertension Pt presents to f.u f or htn and labs Encounter Details Date Type Department Care Team (Late st Contact Info) Description 10/18/2022 11:40 AM CDT Office Visit [facility] Medical Group Family Medicine [address] [phone] Kami Edmond PA-C [address] [place] [address] [phone] Hypertension (Pt presents to f.u for htn and labs ) Social History Tobacco Use Types [...] AM CDT documented as of this encounter Last Filed Vital Signs Vital Sign Reading Time Taken Comments Blood Pressure 129/70 10/18/2022 11:28 AM CDT Pulse 59 10/18/2022 11:28 AM CDT Temperature 36.2 ??C (97.2 ??F) 10/18/2022 1 1:28 AM CDT Respiratory Rate - - Oxygen Saturation 96% 10/18/2022 11: 28 AM CDT Inhaled Oxygen Concentration - - Weight 126.7 kg (279 lb 6.4 oz) 023 11:28 AM CDT Height - - Body Mass Index 46.49 08/17/2022 11:04 AM ADMISSIONS MANAGER RN documented in this encounter Progress Notes * Kami Edmond PA-C - 10/18/2022 11:40 AM CDT Reason for Visit: Hypertension (Pt presents to . for htn and labs ) History of Present Illness: Patient here for follow up diabetes/HTN/hyperlipidemia/hypothyroid. Takes medications daily. Tries to follow low carb diet and exercise. Last HgbA1C was 6.8. Her cough has went away with stopping lisinopril. Denies any complaints. ROS: Review of Systems Respiratory: Negative for cough and shortness of [...] MOUTH DAILY, Disp: 90 capsule, Rfl: 1 fenofibrate micronized 134 MG capsule, Take 1 capsule (134 mg total) by mouth daily. with food., Disp: 90 capsule, Rfl: 3 fluticasone propionate 50 MCG/ACT nasal spray, 2 sprays by Nasal route daily., Disp: , Rfl: glipiZIDE XL (GLUCOTROL XL) 10 MG 24 hr tablet, TAKE 1 TABLET BY MOUTH TWICE DAILY. DO NOT BREAK ORCRUSH TABLET, Disp: 180 tablet, Rfl: 1 glucosamine-chondroitin 500-400 mg Tab tablet, Take 1 tablet by mouth 3 (three) times daily., Disp:, Rfl: hydroCHLOROthiazide (HYDRODIURIL) 25 MG tablet, TAKE 1 TABLET(25 MG) BY MOUTH EVERY MORNING, Disp: 30 tablet, Rfl: 5 levothyroxine (SYNTHROID) 100 MCG tablet, Take 1 tablet (100 mcg total) by mouth every morning., Disp: 90 tablet, Rfl: 1 metFORMIN ER (GLUCOPHAGE XR) 500 MG 24 hr tablet, Take 1 tablet (500 mg total) by mouth daily with breakfast., Disp: 30 tablet, Rfl: 5 Multiple Vitamin (MULTIVITAMIN) capsule, Take 1 capsule by mouth daily., Disp: , Rfl: nystatin (MYCOSTATIN) powder, Apply topically 3 (three) times daily., Disp: 60 g, Rfl: 1 Review of patient's allergies indicates: Allergen Reactions Pollen Extract Runny Nose Dust Mite Extract Runny Nose Molds & Smuts Runny Nose Past Medical History: Diagnosis Date Diabetes mellitus (CMS/HCC) Disease of thyroid gland Hypertension History reviewed. No pertinent surgical history. Social History Socioeconomic History Marital status: Tobacco Use Smoking status: Former Types: Cigarettes Quit date: 1997 Years since quittin.3 Smokeless tobacco: Never Vaping Use Vaping Use: [...] Mood and Affect: Mood normal. Filed Vitals: 10/18/22 1128 BP: 129/70 Pulse: (!) 59 Temp: 97.2 ??F (36.2 ??C) TempSrc: Temporal SpO2: 96% Weight: 126.7 kg (279 lb 6.4 oz) Diagnoses/Impression: 1. Essential hypertension 2. Type 2 diabetes mellitus without complication, without long-term current use of insulin (CMS/HCC) HEMOGLOBIN, GLYCOSYLATED COMPREHENSIVE METABOLIC PANEL 3. Need for hepatitis C screening test HEPATITIS C ANTIBODY W/RFX TO HCV RNA 4. Elevated LFTs COMPREHENSIVE METABOLIC PANEL HEPATITIS C ANTIBODY W/RFX TO HCV RNA 5. Screening mammogram, encounter for MG SCREENING W JUAN WENDY DIGI 6. Screening for colon cancer Ambulatory referral to Gastroenterology ( ) 7. History of colon polyps Ambulatory referral to Gastroenterology ( ) 8. Mixed hyperlipidemia 9. Acquired hypothyroidism 10. Morbid (severe) obesity due to excess calories (CMS/HCC) Recommendations and Plan: Discussed labs with patient. Continue same meds for HTN, DM, hyperlipidemia, and hypothyroid. Discussed diet and exercise for obesity. She will follow up in 3 months. Orders Placed This Encounter HEMOGLOBIN, GLYCOSYLATED COMPREHENSIVE METABOLIC PANEL HEPATITIS C ANTIBODY W/RFX TO HCV RNA Ambulatory referral to Gastroenterology ( ) MG SCREENING W JUAN WENDY DIGI DISCONTD: busPIRone (BUSPAR) 10 MG tablet Reviewed and updated this visit by provider: Tobacco Allergies Meds Problems Med Hx Surg Hx Fam Hx KAMI EDMOND PA-C Referring Provider: No ref. provider found PCP: KAMI EDMOND PA-C documented in this encounter Plan of Treatment Upcoming Encounters Date Type Department Care Team (Late st Contact Info) Description 11/07/2024 9:40 AM CDT Office Visit [facility] Family Medicine - [place] [phone] Kami Edmond PA-C [address] [place] [address] [phone] Scheduled Referrals Name Type Priority Associated Diagnoses Orde r Schedule Ambulatory referral to Gastroenterology ([facility] [place]) Referral Routine Screening for colon cancer History of colon polyps Ordered: 10/18/2022 documented as of this encounter Procedures Procedure Name Priority Date/Time Associated Diagnosis Comments HEPATITIS C ANTIBODY W/RFX TO HCV RNA Routine 01/24/2023 8:15 AM CDT Need for hepatitis C screening test Elevated LFTs HEMOGLOBIN, GLYCOSYLATED Routine 01/24/2023 8:15 AM CDT Type 2 diabetes mellitus without complication, without long-term current use of insulin (CMS/HCC HHS/HCC) COMPREHENSIVE METABOLIC PANEL Routine 01/24/2023 8:15 AM CDT Type 2 diabetes mellitus without complication, without long-term current use of insulin (CMS/HCC HHS/HCC) Elevated LFTs MG SCREENING W JUAN WENDY DIGI Routine 01/16/2023 12:00 AM CDT Screening mammogram, encounter for documented in this encounter Results * HEPATITIS C ANTIBODY W/RFX TO HCV RNA (01/24/2023 8:15 AM CDT) HEPATITIS C AB NON-REACT SULAIMAN NON-REACT SULAIMAN [facility] Comment: HCV antibody was non-reactive. There is no laboratory evidence of HCV infection. In most cases, no further action is required. However, if recent HCV exposure is suspected, a test for HCV RNA (test code 22829) is suggested. For additional information please refer to http://education.Accellion.PaymentWorks/faq/EQN13e1 (This link is being provided for informational/ educational purposes only.) 01/24/2023 8:15 AM CDT 01/24/2023 8:17 AM CDT Narrative [facility] - 01/25/2023 3:32 AM CDT FASTING:YES FASTING: YES Resulting Agency Comment Performing Organization Information: ?Site ID: [id number] ?Name: [facility] ?Address: [address] [address] ?Director: Shante Salvador MD us Kami Edmond PA-C LABORATORY Final Resu lt [employer] [facility] [address] [address] [id number], * (ABNORMAL) COMPREHENSIVE METABOLIC PANEL (01/24/2023 8:15 AM CDT) GLUCOSE 173(H) 65 - 99 mg/dL [place] Comment: ? Fasting reference interval For someone without known diabetes, a glucose value >125 mg/dL indicates that they may have diabetes and this should be confirmed with a follow-up test. BUN 16 7 - 25 mg/dL [place] CREATININE S/P/B 0.83 0.50 - 1.05 mg/dL [place] GFR ESTIMATE 78 > OR = 60 mL/min/1. 73m2 [place] BUN CREATININE RATIO SEE NOTE: (calc) [place] Comment: ?? Not Reported: BUN and Creatinine are within ?? reference range. ? SODIUM S/P/B 137 135 - 146 mmol/L [place] POTASSIUM S/P/B 4.5 3.5 - 5.3 mmol/L [place] CHLORIDE S/P/B 98 98 - 110 mmol/L [place] CO2 30 20 - 32 mmol/L [place] CALCIUM S/P/B 10.6(H) 8.6 - 10.4 mg/dL [place] TOTAL PROTEIN S/P/B 7.5 6.1 - 8.1 g/dL [place] ALBUMIN S/P/B 4.6 3.6 - 5.1 g/dL [place] GLOBULIN 2.9 1.9 - 3.7 g/dL (calc) [place] ALBUMIN/GLOBULIN RATIO 1.6 1.0 - 2.5 (calc) [place] BILIRUBIN TOTAL S/P/B 0.9 0.2 - 1.2 mg/dL [facility] [employer], [place] ALKALINE PHOSPHATASE S/P/B 135 37 - 153 U/L [facility] [employer], [place] AST 55(H) 10 - 35 U/L [place] ALT 46(H) 6 - 29 U/L [facility] [employer], [place] 01/24/2023 8:15 AM CDT 01/24/2023 8:17 AM CDT Narrative [facility] - 01/25/2023 3:32 AM CDT FASTING:YES FASTING: YES Resulting Agency Comment Performing Organization Information: ?Site ID: [id number] ?Name: [facility] ?Address: [address] [place] [id number] ?Director: Shante Salvador us Kami Edmond PA-C LABORATORY Final Resu lt [facility] [address] [address], * (ABNORMAL) HEMOGLOBIN, GLYCOSYLATED (01/24/2023 8:15 AM CDT) HGB A1C 8.8(H) <5.7 % of total Hgb [facility] [employer], [place] Comment: For someone without known diabetes, a hemoglobin A1c value of 6.5% or greater indicates that they may have diabetes and this should be confirmed with a follow-up test. For someone with known diabetes, a value <7% indicates that their diabetes is well controlled and a value greater than or equal to 7% indicates suboptimal control. A1c targets should be individualized based on duration of diabetes, age, comorbid conditions, and other considerations. Currently, no consensus exists regarding use of hemoglobin A1c for diagnosis of diabetes for children. ?? 01/24/2023 8:15 AM CDT 01/24/2023 8:17 AM CDT Narrative [facility] - 01/25/2023 3:32 AM CDT FASTING:YES FASTING: YES Resulting Agency Comment Performing Organization Information: ?Site ID: [id number] ?Name: [facility] ?Address: [facility] [place] [address] ?Director: Shante Salvador us Kami Edmond PA-C LABORATORY Final Resu lt [facility] [address] [place] [address], [place] * MG SCREENING W JUAN WENDY DIGI (01/16/2023 12:00 AM CDT) Anatomical Region Laterality Modality Breast Bilateral Mammography 01/16/2023 us Kami Edmond PA-C MAMMO Final Resu lt documented in this encounter Visit Diagnoses Diagnosis Essential hypertension- Primary Unspecified essential hypertension Type 2 diabetes mellitus without complication, without long-term current use of insulin (CMS/HCC HHS/HCC) Need for hepatitis C screening test Special screening examination for other specified viral diseases Elevated LFTs Other abnormal blood chemistry Screening mammogram, encounter for Screening for colon cancer Special screening for malignant neoplasms, colon History of colon polyps Personal history of colonic polyps Mixed hyperlipidemia Acquired hypothyroidism Unspecified hypothyroidism Morbid (severe) obesity due to excess calories (CMS/HCC HHS/HCC) documented in this encounter Additional Health Concerns Assessment Noted Time PHQ-9 Depression Total Score: 13 023 8:53 AM ADMISSIONS MANAGER RN documented as of this encounter Care Teams Employment Training Specialist Relationship Specialty Start Date End Date Kami Edmond PA-C [address] [place] [phone] PCP - General PHYSICIAN CONGREGATIONAL CARE PASTOR 02/05/21 documented as of this encounter
--- OUTSIDE RECORDS SUMMARY | 2024-06-23 15:11 | XMS_ITS | Encounter Summary ---
Author Organization [facility] Address [address] [place] [address]. [place] [address] [place] [address] Care Team Providers Care All Source Intelligence Name Role Phone Franny Dolan PA-C Primary Care Provider [phone]- [phone] Reason for Visit * Reason Comments New Patient Referral colon denvere wicho (Hx colon polyps) * Consultation/Treatment (Routine) - Closed Specialty Diagnoses / Procedures Referred By Contact Referred To Contact Nurse Practitioner Family / GASTROENTEROLOGY Diagnoses Screening for colon cancer History of colon polyps Screening for colon cancer/ History of colon polyps Procedures NEW PATIENT Franny Dolan PA-C [address] [place] [address] Phone: tel: fax: Jenna Garza NP [address] [facility] [address] [place] [address] Phone: tel:[phone] fax:[phone] Referral ID Status Reason Start Date Expiration Date Visits Re quested Visits Authorized [id number] Closed 01/03/2023 01/04/2024 99 99 Encounter Details Date Type Department Care Team (Late st Contact Info) Description 01/03/2023 10:00 AM CDT Office Visit [facility] Multispecialty Care - [facility] [address] [place] [address] Franny Dolan PA-C [address] [place] [address] [place] [address] Jenna Garza NP [address] [facility] [address] [place] [address] New Patient (Referral colon screening (Hx colon polyps)) Social History Tobacco Use Types Packs/Day Years [...] Sign Reading Time Taken Comments Blood Pressure 138/82 01/03/2023 11:00 AM CDT Pulse 64 01/03/2023 10:03 AM CDT Temperature 36.1 ??C (97 ??F) 01/03/2023 10:03 AM CDT Respiratory Rate 22 01/03/2023 10:03 AM CDT Oxygen Saturation 97% 01/03/2023 10:03 AM CDT Inhaled Oxygen Concentration - - Weight 125.6 kg (277 lb) 01/03/2023 10:03 AM CDT Height 162.6 cm (5' 4 ) 01/03/2023 10:03 AM CDT Body Mass Index 47.55 01/03/2023 10:03 AM CDT documented in this encounter Patient Instructions * Patient Instructions* Jenna Garza NP - 01/03/2023 10:00 AM CDT It is recommended to consume 20-35 grams of fiber per day and at least 64 ounces/2 liters of water per day. Below are the common foods with fiber content listed for you. This will help with normal bowel movements. ?? 2018 [employer]. and/or its affiliates. All Rights Reserved. Amount of fiber in different foods Food Serving Grams of fiber Fruits Apple (with skin) 1 medium apple 4.4 Banana 1 medium banana 3.1 Oranges 1 orange 3.1 Prunes 1 cup, pitted 12.4 Juices Apple, unsweetened, with added ascorbic acid 1 cup 0.5 Grapefruit, white, canned, sweetened 1 cup 0.2 Grape, unsweetened, with added ascorbic acid 1 cup 0.5 Emanuel 1 cup 0.7 Vegetables Cooked Green beans 1 cup 4.0 Carrots 1/2 cup sliced 2.3 Peas 1 cup 8.8 Potato (baked, with skin) 1 medium potato 3.8 Raw Marion (with peel) 1 cucumber 1.5 Lettuce 1 cup shredded 0.5 Tomato 1 medium tomato 1.5 Spinach 1 cup 0.7 Legumes Baked beans, canned, no salt added 1 cup 13.9 Kidney beans, canned 1 cup 13.6 Larson beans, canned 1 cup 11.6 Lentils, boiled 1 cup 15.6 Breads, pastas, flours Bran muffins 1 medium muffin 5.2 Oatmeal, cooked 1 cup 4.0 White bread 1 slice 0.6 Whole-wheat bread 1 slice 1.9 Pasta and rice, cooked Macaroni 1 cup 2.5 Rice, brown 1 cup 3.5 Rice, white 1 cup 0.6 Spaghetti (regular) 1 cup 2.5 Nuts Almonds 1/2 cup 8.7 Peanuts 1/2 cup 7.9 To learn how much fiber and other nutrients are in different foods, visit the [place] Department of Agriculture (USDA) National Nutrient Database at: http://www.nal.usda.gov/fnic/foodcomp/search/. Created using data from the USDA National Nutrient Database for Standard Reference. Available at http://www.nal.usda.gov/fnic/foodcomp/search/. Graphic 13733 Version 4.0 documented in this encounter Progress Notes * Jenna Garza NP - 01/03/2023 10:00 AM CDT Images from the original note were not included. GASTROENTEROLOGY CONSULT 01/03/2023 11:35 AM Reason for Visit: New Patient (Referral colon screening (Hx colon polyps)) History of Present Illness: Kristal Bustos is a 67-year-old female who presents today for ascreening colonoscopy. Referral placed by PCP HECTOR Mendez. Last colonoscopy was in 2017 withtwo inflammatory colon polyps noted and a 10 year recommended repeat screening. Patient has had several previous colonoscopies all with negative findings per pt report. No family h/o colon CA. Reports chronic intermittent diarrhea for past 6 years. Has noticed a trend with diarrhea, often occurs when she eats take-out or at a restaurant. Reports fecal urgency with the diarrhea. Remaining BM are regular. Typically has a BM daily with diarrhea episode 1-2 times monthly. Denies melena, hematochezia, constipation, abdominal pain, N/V, dysphagia, or heartburn. Appetite appropriate. No unexplained weight loss. S/P cholecystectomy in 2002, however intermittent diarrhea more recent since last colonoscopy. Colonoscopy in 2017 noted mild reactive changes with two inflammatory polyps. Told she has IBS. There has been no changes to her bowel habits or worsening symptoms. No anemia noted in labs. No hx of hepatitis infection. No prior blood transfusions NSAID/Anticoagulant use: None EGD: >10 yrs ago Colonoscopy: 02/22/[address] Shepherd Previous colonoscopies with neg findings per pt report Past Medical History: Diagnosis Date Depression Diabetes mellitus (CMS/HCC) Disease of thyroid gland Hypertension Polycythemia vera (CMS/HCC) Past Surgical History: Procedure Laterality Date BACK SURGERY COLONOSCOPY HC KIT BLADDER SLING/SUSPENSION 2013 HYSTERECTOMY 2001 LAPAROSCOPIC CHOLECYSTECTOMY 2003 Family History Problem Relation Name Age of Onset Diabetes Mother Diabetes Father Social History Tobacco Use Smoking status: Former Types: Cigarettes Quit date: 1997 Years since quittin.5 Smokeless tobacco: Never Vaping Use Vaping Use: Never used Substance Use Topics Alcohol use: Not Currently Comment: holidays only Drug use: Never Outpatient Medications Marked as Taking for the 01/03/23 encounter (Office Visit) with Jenna Garza NP Medication Sig Dispense Refill acetaminophen CR 650 MG Tab CR 8 hr tablet Take 1 tablet (650 mg total) by mouth. busPIRone (BUSPAR) 15 MG tablet Take 1 tablet (15 mg total) by mouth 2 (two) times daily. 180 tablet 1 cetirizine (ZYRTEC) 10 MG tablet Take 1 tablet (10 mg total) by mouth daily. 90 tablet 3 DULoxetine (CYMBALTA) 60 MG capsule TAKE 1 CAPSULE(60 MG) BY MOUTH DAILY 90 capsule 1 Fenofibrate 134 MG Cap TAKE 1 CAPSULE(134 MG) BY MOUTH DAILY WITH FOOD 90 capsule 3 fluticasone propionate 50 MCG/ACT nasal spray 2 sprays by Nasal route daily. glipiZIDE XL (GLUCOTROL XL) 10 MG 24 hr tablet TAKE 1 TABLET BY MOUTH TWICE DAILY. DO NOT BREAK OR CRUSH TABLET 180 tablet 1 glucosamine-chondroitin 500-400 mg Tab tablet Take 1 tablet by mouth 3 (three) times daily. hydroCHLOROthiazide (HYDRODIURIL) 25 MG tablet TAKE 1 TABLET(25 MG) BY MOUTH EVERY MORNING 30 tablet 5 levothyroxine (SYNTHROID) 100 MCG tablet TAKE 1 TABLET BY MOUTH EVERY MORNING 90 tablet 1 metFORMIN ER (GLUCOPHAGE XR) 500 MG 24 hr tablet Take 1 tablet (500 mg total) by mouth daily with breakfast. 30 tablet 5 Multiple Vitamin (MULTIVITAMIN) capsule Take 1 capsule by mouth daily. nystatin (MYCOSTATIN) powder Apply topically 3 (three) times daily. 60 g 1 Review of patient's allergies indicates: Allergen Reactions Pollen Extract Runny Nose Dust Mite Extract Runny Nose Molds & Smuts Runny Nose REVIEW OF SYSTEMS: Review of Systems Constitutional: Negative for fatigue and fever. Respiratory: Negative for shortness of breath. Cardiovascular: Negative for leg swelling. Gastrointestinal: Per HPI Musculoskeletal: Negative for joint swelling. Skin: Negative for rash. Neurological: Negative for dizziness and headaches. Psychiatric/Behavioral: The patient is not nervous/anxious. PHYSICAL EXAM: Filed Vitals: 01/03/23 1003 BP: (!) 142/82 Pulse: 64 Resp: 22 Temp: 97 ??F (36.1 ??C) TempSrc: Temporal SpO2: 97% Weight: 125.6 kg (277 lb) Height: 5' 4 (1.626 m) Wt Readings from Last 1 Encounters: 01/03/23 125.6 kg (277 lb) Physical Exam Vitals reviewed. Constitutional: Appearance: Normal appearance. Cardiovascular: Rate and Rhythm: Normal rate and regular rhythm. Pulmonary: Breath sounds: Normal breath sounds. No wheezing. Abdominal: General: Bowel sounds are normal. There is no distension. Palpations: Abdomen is soft. There is no mass. Tenderness: There is no abdominal tenderness. There is no guarding or rebound. Hernia: No hernia is present. Musculoskeletal: Right lower leg: No edema. Left lower leg: No edema. Skin: General: Skin is warm and dry. Findings: No rash. Neurological: Mental Status: She is alert and oriented to person, place, and time. Psychiatric: Mood and Affect: Mood normal. Behavior: Behavior normal. Labs: Lab Results Component Value Date WBC 5.9 05/13/2021 RBC 5.38 (H) 05/13/2021 HGB 15.7 (H) 05/13/2021 HCT 48.6 (H) 05/13/2021 RDW 12.9 05/13/2021 PLT 259 05/13/2021 NA 138 10/17/2022 K 4.0 10/17/2022 CL 101 10/17/2022 GLU 133 (H) 10/17/2022 BUN 15 10/17/2022 CR 0.77 10/17/2022 GFRNON 75 11/24/2021 GFR 87 11/24/2021 CA 10.0 10/17/2022 ALB 4.1 10/17/2022 ALT 40 (H) 10/17/2022 AST 43 (H) 10/17/2022 ALKP 118 10/17/2022 Imaging: None Endoscopies: 02/22/[address] Shepherd 4 mm ascending colon (inflammatory) polyp; 4-5 mm transverse colon (inflammatory) polyp; 1 cm submucosal lipoma in ascending colon, remaining exam normal Previous colonoscopies with neg findings per pt report EGD >10 yrs ago Assessment 1. Encounter to establish care 2. Irritable bowel syndrome with diarrhea Recommendations/Plan: Reviewed previous colonoscopy findings and recommendations Given there has been no change in patient's bowel habits and she has no additional risk factors indicating more frequent screening patient agrees to wait until 2026 for her next screening colonoscopy Patient advised to f/u if she has any changes to her bowel habits, hematochezia, or anemia to consider soon colonoscopy It is recommended to consume 20-35 grams of fiber per day and at least 64 ounces/2 liters of water per day. All questions answered Risks/Benefits/Options: Risks, benefits and alternatives of the procedure(s) were discussed which can include but are not limited to: discomfort, missing lesions, allergic or adverse reaction to the sedation, perforation ofthe bowel or upper GI tract which may require hospitalization and surgery, bleeding, infection, aspiration. All questions were answered, patient is in agreement to proceed as planned. Orders placed this encounter: No orders of the defined types were placed in this encounter. Jenna Garza NP Gastroenterology Cosigned by Weston Burgos MD at 05/08/2023 6:04 PM INSPECTOR FINAL ASSEMBLY MECHANICAL ECTOR FINAL ASSEMBLY MECHANICAL documented in this encounter Plan of Treatment Upcoming Encounters Date Type Department Care Team (Late st Contact Info) Description 11/07/2024 9:40 AM CDT Office Visit [facility] Medical Group Family Medicine - [address] [phone] Franny Dolan PA-C [address] [place] [address] documented as of this encounter Visit Diagnoses Diagnosis Encounter to establish care- Primary Other reasons for seeking consultation Irritable bowel syndrome with diarrhea Irritable bowel syndrome documented in this encounter Additional Health Concerns Assessment Noted Time PHQ-9 Depression Total Score: 13 023 8:53 AM INSPECTOR FINAL ASSEMBLY MECHANICAL documented as of this encounter Care Teams All Source Intelligence Relationship Specialty Start Date End Date Franny Dolan PA-C [address] [place] [address] PCP - General PHYSICIAN VENUE COORDINATOR 02/05/21 documented as of this encounter
--- OUTSIDE RECORDS SUMMARY | 2024-06-23 15:12 | XMS_ITS | Encounter Summary ---
Author Organization [facility] Address [address] [place] [address]. [place], [place] [id number] [place] [address] Care Team Providers Care Invasive Cardiovascular Technologist Name Role Phone Franny Dolan PA-C Primary Care Provider +1- [phone] Encounter Details Date Type Department Care Team (Latest Contact Info) Description 03/26/2022 Scan [facility] HEALTH INFO SRVCS Scanned, Doc Med Group Social History Tobacco Use Types Packs/Day Years Used Date Smoking Tobacco: Former Cigarettes Q uit: 1997 Smokeless Tobacco: Never Alcohol Use Standard Drinks/Week Comments Yes 0 (1 standard drink = 0.6 oz pur e alcohol) holidays only PHQ-2 Answer Date Recorded PHQ-2 Score - If the patient scores above 3, please move on to questions 3-9 0 11/30/2021 Comments No Sex and Gender Information Value Date Recorded Sex Assigned at Not on file Legal Sex Female 6:13 PM CDT Gender Identity Not on file Sexual Orientation Not on file COVID-19 Exposure Response Date Recorded In the last 10 days, have yo u been in contact with someone who was confirmed or suspected to have Coronavirus/COVID-19? No / Unsure 03/30/2022 10:29 AM CDT documented as of this encounter Plan of Treatment Upcoming Encounters Date Type Department Care Team (Late st Contact Info) Description 11/07/2024 9:40 AM CDT Office Visit [facility] Family Medicine - [place] [address] [place] [phone] Franny Dolan PA-C [address] [place] [address] documented as of this encounter Visit Diagnoses Not on filedocumented in this encounter Additional Health Concerns Assessment Noted Time PHQ-9 Depression Total Score: 0 05/12/20 21 9:32 AM METAL MOULDER documented as of this encounter Care Teams Invasive Cardiovascular Technologist Relationship Specialty Start Date End Date Franny Dolan PA-C [address] [place] [address] [place] [address] PCP - General PHYSICIAN STEWARD DISHWASHER 02/05/21 documented as of this encounter
--- OUTSIDE RECORDS SUMMARY | 2024-06-23 15:12 | XMS_ITS | Encounter Summary ---
Author Organization [facility] Address [address] [place] [address]. [place] [address] [place] [address] Care Team Providers Care Hand Clipper Name Role Phone Franny Dolan PA-C Primary Care Provider +1- [phone] Reason for Visit * Reason Comments Image (SCAN) Encounter Details Date Type Department Care Team (Latest Contact Info) Description 06/14/2021 Scan HEALTH INFO SRVCS Scanned, Documents Image (SCAN) Social History Tobacco Use Types Packs/Day Years Used Date Smoking Tobacco: Former Cigarettes Q uit: 1997 Smokeless Tobacco: Never Alcohol Use Standard Drinks/Week Comments Yes 0 (1 standard drink = 0.6 oz pur e alcohol) holidays only PHQ-2 Answer Date Recorded PHQ-2 Score - If the patient scores above 3, please move on to questions 3-9 0 05/12/2021 Comments No Sex and Gender Information Value Date Recorded Sex Assigned at Not on file Legal Sex Female 6:13 PM CDT Gender Identity Not on file Sexual Orientation Not on file COVID-19 Exposure Response Date Recorded In the last month, have you been in contact with someone who was confirmed or suspected to have Coronavirus / COVID-19? No / Unsure 05/30/2021 2:23 PM NETWORK ENGINEER ADMINISTRATOR documented as of this encounter Plan of Treatment Upcoming Encounters Date Type Department Care Team (Late st Contact Info) Description 11/07/2024 9:40 AM CDT Office Visit [facility] Medical Group Family Medicine - [place] [address] [place] [phone] Franny Dolan PA-C [address] [place] [address] documented as of this encounter Procedures Procedure Name Priority Date/Time Associated Diagnosis Comments IMAGE GENERIC 06/14/2021 documented in this encounter Results * IMAGE GENERIC (06/14/2021) Anatomical Region Laterality Modality Other 06/14/2021 Narrative 06/14/2021 Ordered by an unspecified provider. us Documents Scanned SCANNING Final Result documented in this encounter Visit Diagnoses Not on filedocumented in this encounter Additional Health Concerns Assessment Noted Time PHQ-9 Depression Total Score: 0 05/12/20 9:32 AM NETWORK ENGINEER ADMINISTRATOR documented as of this encounter Care Teams Hand Clipper Relationship Specialty Start Date End Date Franny Dolan PA-C [address] [place] [address] PCP - General PHYSICIAN WATER PUMP SERVICER 02/05/21 documented as of this encounter
--- OUTSIDE RECORDS SUMMARY | 2024-06-23 15:12 | XMS_ITS | Encounter Summary ---
Author Organization [facility] Address [address] [place] [address]. [place] [address] [place] [address] Care Team Providers Care Broker Assistant Name Role Phone Franny Dolan PA-C Primary Care Provider +1- [phone] Encounter Details Date Type Department Care Team (Latest Contact Info) Description 04/05/2021 Scan HEALTH INFO SRVCS Scanned, Documents Social History Tobacco Use Types Packs/Day Years Used Date Smoking Tobacco: Former Cigarettes Q uit: 1997 Smokeless Tobacco: Never Alcohol Use Standard Drinks/Week Comments Yes 0 (1 standard drink = 0.6 oz pur e alcohol) holidays only PHQ-2 Answer Date Recorded PHQ-2 Score - If the patient scores above 3, please move on to questions 3-9 4 02/09/2021 Comments No Sex and Gender Information Value Date Recorded Sex Assigned at Not on file Legal Sex Female 6:13 PM CDT Gender Identity Not on file Sexual Orientation Not on file COVID-19 Exposure Response Date Recorded In the last month, have you been in contact with someone who was confirmed or suspected to have Coronavirus / COVID-19? No / Unsure 03/22/2021 10:56 AM CDT documented as of this encounter Plan of Treatment Upcoming Encounters Date Type Department Care Team (Late st Contact Info) Description 11/07/2024 9:40 AM CDT Office Visit [facility] Medical Group Family Medicine - [place] [address] [place] [phone] Franny Dolan PA-C [address] [place] [address] documented as of this encounter Visit Diagnoses Not on filedocumented in this encounter Additional Health Concerns Assessment Noted Time PHQ-9 Depression Total Score: 13 021 11:45 AM CDT documented as of this encounter Care Teams Broker Assistant Relationship Specialty Start Date End Date Franny Dolan PA-C [address] [place] [address] PCP - General PHYSICIAN OTR REFRIGERATED CDL TRUCK DRIVER 02/05/21 documented as of this encounter
--- OUTSIDE RECORDS SUMMARY | 2024-06-23 15:12 | XMS_ITS | Encounter Summary ---
Author Organization [facility] Address [address] [place] [address]. [place], [place] [address] [place] [address] Care Team Providers Care Vehicle Body Builder Name Role Phone Franny Dolan PA-C Primary Care Provider +1- [phone] Encounter Details Date Type Department Care Team (Latest Contact Info) Description 03/22/2021 Travel Social History Tobacco Use Types Packs/Day [...] Description 11/07/2024 9:40 AM CDT Office Visit [facility] Medical Group Family Medicine - [place] [address] [place] [phone] Franny Dolan PA-C [address] [place] [address] documented as of this encounter Visit Diagnoses Not on filedocumented in this encounter Additional Health Concerns Assessment Noted Time PHQ-9 Depression Total Score: 13 021 11:45 AM CDT documented as of this encounter Care Teams Vehicle Body Builder Relationship Specialty Start Date End Date Franny Dolan PA-C [address] [place] [address] PCP - General PHYSICIAN GROCERY TEAM MEMBER 02/05/21 documented as of this encounter
--- OUTSIDE RECORDS SUMMARY | 2024-06-23 15:12 | XMS_ITS | Encounter Summary ---
Author Organization [facility] Address [address] [place] [address]. [place] [address] [place] [address] Care Team Providers Care Telemarketing Representative Name Role Phone Kami Edmond PA-C Primary Care Provider [phone] Reason for Visit * Reason Comments Anxiety 4 mon follow with la bs Encounter Details Date Type Department Care Team (Late st Contact Info) Description 02/09/2021 10:50 AM CDT Office Visit [facility] Family [facility] - [place] [phone] Kami Edmond PA-C [address] [place] [phone] Anxiety (4 mon follow with labs) Social History Tobacco Use Types Packs/Day Years Used Date Smoking Tobacco: Former Cigarettes Q uit: 1997 Smokeless Tobacco: Never Tobacco Cessation:Counseling Given: No Alcohol Use Standard Drinks/Week Comments Yes 0 [...] have Coronavirus / COVID-19? No / Unsure 02/09/2021 10:19 AM CDT documented as of this encounter Last Filed Vital Signs Vital Sign Reading Time Taken Comments Blood Pressure 135/74 02/09/2021 11:54 AM CDT Pulse 60 02/09/2021 11:48 AM CDT Temperature 35.8 ??C (96.5 ??F) 02/09/2021 11:48 AM C DT Respiratory Rate 20 02/09/2021 11:48 AM CDT Oxygen Saturation 94% 02/09/2021 11:48 AM CDT Inhaled Oxygen Concentration - - Weight 125.2 kg (276 lb) 02/09/2021 11:48 AM CDT Height 165.1 cm (5' 5 ) 02/09/2021 11:48 AM CDT Body Mass Index 45.93 02/09/2021 11:48 AM CDT documented in this encounter Progress Notes * Kami Edmond PA-C - 02/09/2021 10:50 AM CDT Reason for Visit: Anxiety (4 mon follow with labs) History of Present Illness: Patient here for follow up anxiety. She feels anxiety and depression is stable with cymbalta. She denies suicide thoughts, emotional crying, and anxiety with the medication. She is not as good on diet as she was previously. She takes her medications daily. She has been having yeast under her left breast again and needs her cream refilled. She has issues with boils on and off, but currently the ones that were under her arms have healed. No other refills needed today. ROS: Review of Systems Skin: Positive for rash. Psychiatric/Behavioral: Positive for depression. Negative for suicidal ideas. The patient is nervous/anxious. All other systems reviewed and are negative. Medications: Current Outpatient Medications: ??? acetaminophen CR 650 MG Tab CR 8 hr tablet, Take 650 mg by mouth., Disp: , Rfl: ??? aspirin EC (ASPIRIN EC) 81 MG tablet, Take 81 mg by mouth daily., Disp: , Rfl: ??? busPIRone 7.5 MG tablet, Take 1 tablet (7.5 mg total) by mouth 2 (two) times daily., Disp: 180 tablet, Rfl: 1 ??? cetirizine 10 MG tablet, , Disp: , Rfl: ??? clobetasol 0.05 % ointment, Apply topically 2 (two) times daily., Disp: , Rfl: ??? DULoxetine 60 MG capsule, , Disp: , Rfl: ??? fenofibrate micronized 134 MG capsule, Take 134 mg by mouth daily., Disp: , Rfl: ??? fluticasone propionate 50 MCG/ACT nasal spray, 2 sprays by Nasal route daily., Disp: , Rfl: ??? glucosamine-chondroitin 500-400 mg Tab tablet, Take 1 tablet by mouth 3 (three) times daily., Disp: , Rfl: ??? hydroCHLOROthiazide 12.5 MG capsule, Take 12.5 mg by mouth daily., Disp: , Rfl: ??? metFORMIN 500 MG tablet, Take 500 mg by mouth 2 (two) times daily. , Disp: , Rfl: ??? Multiple Vitamin (MULTIVITAMIN) capsule, Take 1 capsule by mouth daily., Disp: , Rfl: ??? nystatin-triamcinolone cream, Apply topically 2 (two) times daily as needed. apply to affected area, Disp: 60 g, Rfl: 1 ??? SYNTHROID 100 MCG tablet, , Disp: , Rfl: Allergies Allergen Reactions ??? Pollen Extract Runny Nose ??? Bee Pollen Runny Nose Tree pollen ??? Dust Mite Extract Runny Nose ? ? Molds & Smuts Runny Nose History reviewed. No pertinent past medical history. History reviewed. No pertinent surgical history. Social History Socioeconomic History ??? Marital status: Spouse name: Not on file ??? Number of children: Not on file ??? Years of education: Not on file ??? Highest education level: Not on file Occupational History ??? Not on file Tobacco Use ??? Smoking status: Former Smoker Quit date: 1998 Years since quittin.6 ??? Smokeless tobacco: Never Used Substance and Sexual Activity ??? Alcohol use: Yes Comment: holidays only ??? Drug use: Never ??? Sexual activity: Not on file Other Topics Concern ??? Not on file Social History Narrative ??? Not on file Social Determinants of Health Financial Resource Strain: ??? Difficulty of Paying Living Expenses: Food Insecurity: ??? Worried About Running Out of Food in the Last Year: ??? Ran Out of Food in the Last Year: Transportation Needs: ??? Lack of Transportation (Medical): ??? Lack of Transportation (Non-Medical): Physical Activity: ??? Days of Exercise per Week: ??? Minutes of Exercise per Session: Stress: ??? Feeling of Stress : Social Connections: ??? Frequency of Communication with Friends and Family: ??? Frequency of Social Gatherings with Friends and Family: ??? Attends [employer] Services: ??? Active Member of Clubs or Organizations: ??? Attends Club or Organization Meetings: ??? Marital Status: Intimate Partner Violence: ??? Fear of Current or Ex-Partner: ??? Emotionally Abused: ??? Physically Abused: ??? Sexually Abused: E-Cigarettes Questions Responses E-Cigarette Use Never User E-cigarette/Vaping Substances Questions Responses Nicotine No THC No CBD No Flavoring No E-cigarette/Vaping Devices Questions Responses Disposable No Pre-filled or Refillable Cartridge No Refillable Tank No Pre-filled Pod No No family history on file. No family status information on file. Physical Exam Vitals reviewed. Constitutional: Appearance: Normal appearance. Neck: Thyroid: No thyromegaly. Cardiovascular: Rate and Rhythm: Normal rate and regular rhythm. Pulmonary: Effort: Pulmonary effort is normal. Breath sounds: Normal breath sounds. Musculoskeletal: Right lower leg: No edema. Left lower leg: No edema. Skin: Comments: Red cutaneous yeast rash present under her left breast Neurological: Mental Status: She is alert. Psychiatric: Mood and Affect: Mood normal. Filed Vitals: 02/09/21 1148 02/09/21 1154 BP: (!) 133/113 135/74 Pulse: 60 Resp: 20 Temp: 96.5 ??F (35.8 ??C) TempSrc: Oral SpO2: 94% Weight: 125.2 kg (276 lb) Height: 5' 5 (1.651 m) Diagnoses/Impression: 1. Hypothyroidism, unspecified type THYROXINE, FREE (FT4) THYROID STIM HORMONE, TSH 2. Anxiety 3. Moderate episode of recurrent major depressive disorder (CMS/HCC) 4. Type 2 diabetes mellitus without complication, without long-term current use of insulin (CMS/HCC) COMPREHENSIVE METABOLIC PANEL HEMOGLOBIN, GLYCOSYLATED ALBUMIN URINE RANDOM 5. Hyperlipidemia, unspecified hyperlipidemia type LIPID PANEL 6. Yeast infection of the skin nystatin-triamcinolone cream Recommendations and Plan: Discuss labs with patient. Continue same meds. Discussed diet and exercise. Orders Placed This Encounter ??? COMPREHENSIVE METABOLIC PANEL ??? HEMOGLOBIN, GLYCOSYLATED ??? THYROXINE, FREE (FT4) ??? LIPID PANEL ??? THYROID STIM HORMONE, TSH ??? ALBUMIN URINE RANDOM ??? DISCONTD: Ibuprofen Powder ??? acetaminophen CR 650 MG Tab CR 8 hr tablet ??? aspirin EC (ASPIRIN EC) 81 MG tablet ??? DISCONTD: cefUROXime 250 MG tablet ??? cetirizine 10 MG tablet ??? DISCONTD: citalopram 10 MG tablet ??? DISCONTD: citalopram 20 MG tablet ??? clobetasol 0.05 % ointment ??? DISCONTD: cyclobenzaprine 10 MG tablet ??? DULoxetine 60 MG capsule ??? DISCONTD: DULoxetine 60 MG capsule ??? DISCONTD: DULoxetine 30 MG capsule ??? DISCONTD: DULoxetine 30 MG capsule ??? fenofibrate micronized 134 MG capsule ??? DISCONTD: fenofibrate micronized 134 MG capsule ??? DISCONTD: fexofenadine 180 MG tablet ??? DISCONTD: fluconazole 150 MG tablet ??? DISCONTD: fluconazole 150 MG tablet ??? fluticasone propionate 50 MCG/ACT nasal spray ??? glucosamine-chondroitin 500-400 mg Tab tablet ??? hydroCHLOROthiazide 12.5 MG capsule ??? DISCONTD: hydroCHLOROthiazide 12.5 MG tablet ??? DISCONTD: levothyroxine 88 MCG tablet ??? SYNTHROID 100 MCG tablet ??? DISCONTD: levothyroxine 75 MCG tablet ??? metFORMIN 500 MG tablet ??? DISCONTD: metFORMIN 500 MG tablet ??? Multiple Vitamin (MULTIVITAMIN) capsule ??? DISCONTD: nystatin-triamcinolone cream ??? DISCONTD: nystatin-triamcinolone cream ??? DISCONTD: omeprazole 20 MG capsule ??? DISCONTD: busPIRone 7.5 MG tablet ??? nystatin-triamcinolone cream Reviewed and updated this visit by provider: Tobacco Allergies Meds Problems Med Hx Surg Hx Fam Hx KAMI EMDOND PA-C Referring Provider: No ref. provider found PCP: KAMI EDMOND PA-C documented in this encounter Plan of Treatment Upcoming Encounters Date Type Department Care Team (Late st Contact Info) Description 11/07/2024 9:40 AM CDT Office Visit [facility] Family Medicine - [place] [phone] Kami Edmond PA-C [address] [place] [phone] documented as of this encounter Procedures Procedure Name Priority Date/Time Associated Diagnosis Comments ALBUMIN URINE RANDOM W/CREATININE Routine 05/05/2021 12:08 PM [employer] SALESPERSON Type 2 diabetes mellitus without complication, without long-term current use of insulin ([facility] HHS/HCC) HEMOGLOBIN, GLYCOSYLATED Routine 05/05/2021 8:19 AM [employer] SALESPERSON Type 2 diabetes mellitus without complication, without long-term current use of insulin ([facility] HHS/HCC) COMPREHENSIVE METABOLIC PANEL Routine 05/05/2021 8:19 AM [employer] SALESPERSON Type 2 diabetes mellitus without complication, without long-term current use of insulin ([facility] HHS/HCC) LIPID PANEL Routine 05/05/2021 8:19 AM [employer] SALESPERSON Hyperlipidemia, unspecified hyperlipidemia type THYROXINE, FREE (FT4) Routine 05/05/2021 8:19 AM [employer] SALESPERSON Hypothyroidism, unspecified type THYROID STIM HORMONE TSH Routine 05/05/2021 8:19 AM [employer] SALESPERSON Hypothyroidism, unspecified type documented in this encounter Results * ALBUMIN URINE RANDOM (05/05/2021 12:08 PM [employer] SALESPERSON) CREATININE RANDOM URINE 66 20 - 275 mg/dL [facility] MICROALBUMIN (U) 0.7 See Note: mg/dL [facility] Comment: Reference Range: Reference Range Not established MICROALB/CREAT 11 <30 mcg/mg creat [facility] Comment: The ADA defines abnormalities in albumin [...] a diagnostic category. URINE SPECIMEN / Unknown 05/05/2021 12:08 PM [employer] SALESPERSON 05/05/2021 12:09 PM [employer] SALESPERSON Kami TROYC URINE ORDERABLES Final Res ult Performing Organization Address [facility] Co de Phone Number [facility] [address] [place] [address] * THYROID STIM HORMONE, TSH (05/05/2021 8:19 AM AUT[employer] SALESPERSON) TSH 2.72 0.40 - 4.50 mIU/L [facility] 05/05/2021 8:19 AM AUT[employer] SALESPERSON 05/05/2021 8:20 AM [employer] SALESPERSON Narrative [facility] - 05/06/2021 4:52 AM [employer] SALESPERSON FASTING:YES FASTING: YES Kami TROYC LABORATORY Final Resu lt Performing Organization Address [facility] Co de Phone Number [facility] [address] [place] [address] * (ABNORMAL) LIPID PANEL (05/05/2021 8:19 AM [employer] SALESPERSON) CHOLESTEROL 147 <200 mg/dL [facility] HDL 57 > OR = 50 mg/dL [facility] TRIGLYCERIDES 195(H) <150 mg/dL [facility] LDL (CALCULATED) 63 mg/dL (calc) [facility] Comment: Reference range: <100 Desirable range <100 mg/dL for primary prevention; ?? <70 mg/dL for patients with CHD or diabetic patients with > or = 2 CHD risk factors. LDL-C is now calculated using the Prakash calculation, which is a validated novel method providing better accuracy than the Friedewald equation in the estimation of LDL-C. Trino SS et al. CELSA. 2013;310(80): 3525-0919 (http://education.[place]ia/faq/XSO353) CHOL/HDL RATIO 2.6 <5.0 (calc) [facility] NON HDL CHOLESTEROL 90 <130 mg/dL (calc) [facility] Comment: For patients with diabetes plus 1 major ASCVD risk factor, treating to a non-HDL-C goal of <100 mg/dL (LDL-C of <70 mg/dL) is considered a therapeutic option. 05/05/2021 8:19 AM [employer] SALESPERSON 05/05/2021 8:20 AM [employer] SALESPERSON Narrative [facility] - 05/06/2021 4:52 AM AUT[employer] SALESPERSON FASTING:YES FASTING: YES Kami Edmond PA-C LABORATORY Final Resu lt Performing Organization Address [facility] Co de Phone Number [facility] [address] [place] [address] * THYROXINE, FREE (FT4) (05/05/2021 8:19 AM [employer] SALESPERSON) Pathologist [facility] FREE T4 1.1 0.8 - 1.8 ng/dL [facility] 05/05/2021 8:1 9 AM [employer] SALESPERSON 05/05/2021 8:20 AM [employer] SALESPERSON Narrative [facility] - 05/06/2021 4:52 AM [employer] SALESPERSON FASTING:YES FASTING: YES Kami Edmond PA-C LABORATORY Final Resu lt Performing Organization Address [facility]/ZIP Co de Phone Number [facility] [address] [place] [address] * (ABNORMAL) HEMOGLOBIN, GLYCOSYLATED (05/05/2021 8:19 AM [employer] SALESPERSON) HGB A1C 6.6(H) <5.7 % of [facility]gb [facility] 05/05/2021 8:19 AM [employer] SALESPERSON 05/05/2021 8:20 AM [employer] SALESPERSON Narrative [facility] - 05/06/2021 4:52 AM [employer] SALESPERSON FASTING:YES FASTING: YES us Kami Edmond PA-C LABORATORY Final Resu lt [facility] [address] [place] [address] * (ABNORMAL) COMPREHENSIVE METABOLIC PANEL (05/05/2021 8:19 AM [employer] SALESPERSON) GLUCOSE 140(H) 65 - 99 mg/dL [facility] Comment: ? Fasting reference interval For someone without known diabetes, a glucose value >125 mg/dL indicates that they may have diabetes and this should be confirmed with a follow-up test. BUN 11 7 - 25 mg/dL [facility] CREATININE S/P/B 0.76 0.50 - 0.99 mg/dL [facility] Comment: For patients >49 years of age, the reference limit for Creatinine is approximately 13% higher for people identified as -Malaysian. EGFR NON-AFR. AMER. 82 > OR = 60 mL/min/1 .73m2 [facility] EGFR AFR. AMER. 95 > OR = 60 mL/min/1 .73m2 [facility] BUN CREATININE RATIO NOT APPLICABLE 6 - 22 (calc) [facility] SODIUM S/P/B 140 135 - 146 mmol/L [facility] POTASSIUM S/P/B 4.5 3.5 - 5.3 mmol/L [facility] CHLORIDE S/P/B 101 98 - 110 mmol/L [facility] CO2 27 20 - 32 mmol/L [facility] CALCIUM S/P/B 10.3 8.6 - 10.4 mg/dL [facility] TOTAL PROTEIN S/P/B 6.8 6.1 - 8.1 g/dL [facility] ALBUMIN S/P/B 4.3 3.6 - 5.1 g/dL [facility] GLOBULIN 2.5 1.9 - 3.7 g/dL (calc) [facility] ALBUMIN/GLOBULIN RATIO 1.7 1.0 - 2.5 (calc) [facility] BILIRUBIN TOTAL S/P/B 0.6 0.2 - 1.2 mg/dL [facility] ALKALINE PHOSPHATASE S/P/B 101 37 - 153 U/L [facility] AST 29 10 - 35 U/L [facility] ALT 37(H) 6 - 29 U/L [facility] 05/05/2021 8:19 AM [employer] SALESPERSON 05/05/2021 8:20 AM [employer] SALESPERSON Narrative [facility] - 05/06/2021 4:52 AM [employer] SALESPERSON FASTING:YES FASTING: YES us Kami Edmond PA-C LABORATORY Final Resu lt [facility] [address] [place] [address] documented in this encounter Visit Diagnoses Diagnosis Hypothyroidism, unspecified type- Primary Anxiety Anxiety state, unspecified Moderate episode of recurrent major depressive disorder ([facility]) Type 2 diabetes mellitus without complication, without long-term current use of insulin ([facility]) Hyperlipidemia, unspecified hyperlipidemia type Yeast infection of the skin Candidiasis of skin and nails documented in this encounter Additional Health Concerns Assessment Noted Time PHQ-9 Depression Total Score: 13 021 11:45 AM CDT documented as of this encounter Care Teams Telemarketing Representative Relationship Specialty Start Date End Date Kami Edmond PA-C [address] [place] [phone] PCP - General PHYSICIAN JAVASCRIPT DEVELOPER 02/05/21 documented as of this encounter
--- OUTSIDE RECORDS SUMMARY | 2024-06-23 15:12 | XMS_ITS | Encounter Summary ---
Author Organization [facility] Address [address] [place] [address]. [place] [address] [place] [address] Care Team Providers Care Limehouse Worker Name Role Phone Kami Edmond PA-C Primary Care Provider +1- [phone] Reason for Visit * Reason Comments Follow Up - Diabetes with labs COVID-19 Need test due to Marifer deangelo Encounter Details Date Type Department Care Team (Late st Contact Info) Description 05/31/2021 10:20 AM COUNTER ATTENDANT Office Visit [facility] Family Medicine - [place] [phone] Kami Edmond PA-C [address] [place] [address] [phone] Follow Up - Diabetes (with labs); COVID-19 (Need test due to Surgery ) Social History Tobacco Use Types Packs/Day [...] COVID-19? No / Unsure 05/30/2021 2:23 PM COUNTER ATTENDANT documented as of this encounter Last Filed Vital Signs Vital Sign Reading Time Taken Comments Blood Pressure 134/76 05/31/2021 10:51 AM COUNTER ATTENDANT Pulse 56 05/31/2021 10:51 AM COUNTER ATTENDANT Temperature 36.6 ??C (97.9 ??F) 05/31/2021 1 0:51 AM COUNTER ATTENDANT Respiratory Rate 18 05/31/2021 10:5 1 AM COUNTER ATTENDANT Oxygen Saturation 98% 05/31/2021 10: 51 AM COUNTER ATTENDANT Inhaled Oxygen Concentration - - Weight 125.7 kg (277 lb 3.2 oz) 021 10:51 AM COUNTER ATTENDANT Height - - Body Mass Index 47.58 05/12/2021 9:32 AM COUNTER ATTENDANT documented in this encounter Progress Notes * Kami Edmond PA-C - 05/31/2021 10:20 AM CST Reason for Visit: Follow Up - Diabetes (with labs) and COVID-19 (Need test due to Surgery ) History of Present Illness: Patient here for follow up diabetes. Takes medications daily. Tries to follow low carb diet. Checksblood sugars a few days a week. Fasting blood sugars usually less than 130. Last HgbA1C was 6.6. Last eye exam was in 2019. Denies any complaints. She is having surgery and needs to have a COVID test done. Feels cymbalta and buspar are helping the depression and anxiety. Denies any crying episodes, depressive mood, anxiety or suicide thoughts on the medication. Sleeps and eats well. She sees Dr. Staley for polycythemia. ROS: Review of Systems Respiratory: Negative for shortness of breath. Cardiovascular: Negative for chest pain. Psychiatric/Behavioral: Negative for suicidal ideas. All other systems reviewed and are negative. Medications: Current Outpatient Medications: acetaminophen CR 650 MG Tab CR 8 hr tablet, Take 650 mg by mouth., Disp: , Rfl: aspirin EC (ASPIRIN EC) 81 MG tablet, Take 81 mg by mouth daily., Disp: , Rfl: busPIRone 7.5 MG tablet, Take 1 tablet (7.5 mg total) by mouth 2 (two) times daily., Disp: 180 tablet, Rfl: 1 CETIRIZINE 10 MG tablet, TAKE 1 TABLET DAILY, Disp: 90 tablet, Rfl: 3 clobetasol 0.05 % ointment, Apply topically 2 (two) times daily., Disp: , Rfl: DULOXETINE 60 MG capsule, TAKE 1 CAPSULE DAILY, Disp: 90 capsule, Rfl: 3 fenofibrate micronized 134 MG capsule, Take 1 capsule (134 mg total) by mouth daily., Disp: 90 capsule, Rfl: 1 fluticasone propionate 50 MCG/ACT nasal spray, 2 sprays by Nasal route daily., Disp: , Rfl: glucosamine-chondroitin 500-400 mg Tab tablet, Take 1 tablet by mouth 3 (three) times daily., Disp:, Rfl: hydroCHLOROthiazide 12.5 MG capsule, Take 12.5 mg by mouth daily., Disp: , Rfl: METFORMIN 500 MG tablet, TAKE 1 TABLET TWICE A DAY, Disp: 180 tablet, Rfl: 0 Multiple Vitamin (MULTIVITAMIN) capsule, Take 1 capsule by mouth daily., Disp: , Rfl: nystatin powder, Apply topically 3 (three) times daily., Disp: 60 g, Rfl: 1 nystatin-triamcinolone cream, Apply topically 2 (two) times daily as needed. apply to affected area, Disp: 60 g, Rfl: 1 SYNTHROID 100 MCG tablet, Take 1 tablet (100 mcg total) by mouth every morning., Disp: 90 tablet, Rfl: 1 Allergies Allergen Reactions Pollen Extract Runny Nose Bee Pollen Runny Nose Tree pollen Dust Mite Extract Runny Nose Molds & Smuts Runny Nose History reviewed. No pertinent past medical history. History reviewed. No pertinent surgical history. Social History Socioeconomic History Marital status: Spouse name: Not on file Number of children: Not on file Years of education: Not on file Highest education level: Not on file Occupational History Not on file Tobacco Use Smoking status: Former Smoker Quit date: 1997 Years since quittin.9 Smokeless tobacco: Never Used Vaping Use Vaping Use: Never used Substance and Sexual Activity Alcohol use: Yes Comment: holidays only Drug use: Never Sexual activity: Not on file Other Topics Concern Not on file Social History Narrative Not on file Social Determinants of Health Financial Resource Strain: Not on file Food Insecurity: Not on file Transportation Needs: Not on file Physical Activity: Not on file Stress: Not on file Social Connections: Not on file Intimate Partner Violence: Not on file E-Cigarettes Questions Responses E-Cigarette Use Never User [...] Mood and Affect: Mood normal. Filed Vitals: 05/31/21 1051 BP: 134/76 Pulse: 56 Resp: 18 Temp: 97.9 ??F (36.6 ??C) TempSrc: Temporal SpO2: 98% Weight: 125.7 kg (277 lb 3.2 oz) Diagnoses/Impression: 1. Pre-operative clearance CORONAVIRUS (COVID-19) ANTIGEN CORONAVIRUS (COVID 19) PCR ([facility]) 2. Essential hypertension 3. Hypothyroidism, unspecified type 4. Type 2 diabetes mellitus without complication, without long-term current use of insulin ([facility]) 5. Polycythemia 6. Mixed hyperlipidemia 7. Moderate episode of recurrent major depressive disorder ([facility]) 8. Anxiety Recommendations and Plan: Discuss labs with patient. Continue same meds, no refills needed today per patient. Discussed diet and exercise. She will call herself and schedule eye exam. Discussed rapid COVID test negative, PCR sent also as she is needing for neck surgery. She will follow up with specialists as scheduled. She will follow up in 3 months with A1c in office. Orders Placed This Encounter CORONAVIRUS (COVID-19) ANTIGEN CORONAVIRUS (COVID 19) PCR ([facility]) Reviewed and updated this visit by provider: Tobacco Allergies Meds Problems Med Hx Surg Hx Fam Hx KAMI EDMOND PA-C Referring Provider: No ref. provider found PCP: KAMI EDMOND PA-C Cosigned by Alex Browne MD at 06/11/2021 8:26 AM COUNTER ATTENDANT TER ATTENDANT TER ATTENDANT TER ATTENDANT documented in this encounter Plan of Treatment Upcoming Encounters Date Type Department Care Team (Late st Contact Info) Description 11/07/2024 9:40 AM CDT Office Visit [facility] Family Medicine [address] [phone] Kami Edmond PA-C [address] [place] [phone] documented as of this encounter Procedures Procedure Name Priority Date/Time Associated Diagnosis Comments CORONAVIRUS (COVID 19) PCR Routine 05/31/2021 11:17 AM COUNTER ATTENDANT Pre-operative clearance CORONAVIRUS (COVID-19) ANTIGEN Today 05/31/2021 Pre-operative clearance documented in this encounter Results * CORONAVIRUS (COVID 19) PCR ([facility]) (05/31/2021 11:17 AM COUNTER ATTENDANT) SPEC DESCRIPTION NASAL 05/31/20 11:17 AM COUNTER ATTENDANT [facility] CORONAVIRUS SARS COV 2 PCR (RESP) NEGATIVE NEGATIVE 06/01/2021 11:59 PM COUNTER ATTENDANT [facility] Comment: THE SARS-CoV-2 TEST HAS BEEN AUTHORIZED BY THE FDA UNDER AN EUA FOR USE BY AUTHORIZED LABORATORIES. PERFORMED BY NUCLEIC ACID AMPLIFICATION PCR FIRST TEST UNKNOWN 05/31/2021 11:17 AM [facility] EMPLOYED IN HEALTHCARE NO 05/31/2021 11:17 AM [facility] SYMPTOMATIC DEFINED BY CDC NO 05/31/2021 11:17 AM [facility] HOSPITALIZATION STATUS NO 05/31/2021 11:17 AM COUNTER ATTENDANT [facility] PATIENT IN ICU NO 05/31/2021 11:17 AM COUNTER ATTENDANT [facility] RESIDENT OF [facility] NO 05/31/2021 11:17 AM COUNTER ATTENDANT [facility] NASOPHARYNGEAL SWAB / Unknown 05/31/2021 11:17 AM COUNTER ATTENDANT Kami Edmond PA-C MICROBIOLOGY - GENERAL ORD ERABLES Final Result [facility] [address] [place] [address], [place] [phone] * CORONAVIRUS (COVID-19) ANTIGEN (05/31/2021) CORONAVIRUS ANTIGEN [place] NEGATIVE NEGATIVE [facility],[place] Internal Control: VALID VALID [facility],[place] Specimen from nose (specimen) NASAL STRUCTURE / Unknown 05/31/2021 Kami Edmond PA-C MICROBIOLOGY - GENERAL ORD ERABLES Final Result [facility],[place] [address] [place] [address], [place] [phone] documented in this encounter Visit Diagnoses Diagnosis Pre-operative clearance- Primary Preoperative examination, unspecified Essential hypertension Unspecified essential hypertension Hypothyroidism, unspecified type Type 2 diabetes mellitus without complication, without long-term current use of insulin ([facility]) Polycythemia Polycythemia vera Mixed hyperlipidemia Moderate episode of recurrent major depressive disorder ([facility]) Anxiety Anxiety state, unspecified documented in this encounter Additional Health Concerns Infection Onset Date Last Indicated Resolved Time COVID-19 Rule Out 05/31/2021 05/31/2021 05/31/2021 11:28 AM COUNTER ATTENDANT Assessment Noted Time PHQ-9 Depression Total Score: 0 05/12/20 9:32 AM COUNTER ATTENDANT documented as of this encounter Care Teams Limehouse Worker Relationship Specialty Start Date End Date Kami Edmond PA-C [address] [place] [id number] PCP - General PHYSICIAN GRINDER SET UP OPERATOR 02/05/21 documented as of this encounter
--- OUTSIDE RECORDS SUMMARY | 2024-06-23 15:12 | XMS_ITS | Encounter Summary ---
Author Organization [facility] Address [address] [place] [address]. [place] [address] [place] [address] Care Team Providers Care Pharmacy Technician Inpatient Name Role Phone Franny Dolan PA-C Primary Care Provider +1- [phone] Reason for Visit * Reason Comments Mammogram (SCAN) Encounter Details Date Type Department Care Team (Late Contact Info) Description 10/29/2021 Scan [facility] INFO SRVCS Scanned, Documents Mammogram (SCAN) Social History Tobacco Use Types [...] 9:40 AM CDT Office Visit [facility] Family Medicine - [place] [address] [place] [phone] Franny Dolan PA-C [address] [place] [address] documented as of this encounter Procedures Procedure Name Priority Date/Time Associated Diagnosis Comments MAMMOGRAM GENERIC (SCAN ORDER) 10/29/2021 documented in this encounter Results * MAMMOGRAM GENERIC (10/29/2021) Anatomical Region Laterality Modality Other 10/29/2021 Narrative 10/29/2021 Ordered by an unspecified provider. us Documents Scanned SCANNING Final Result documented in this encounter Visit Diagnoses Not on filedocumented in this encounter Additional Health Concerns Assessment Noted Time PHQ-9 Depression Total Score: 0 05/12/20 21 9:32 AM ELECTRONICS ENGINEER documented as of this encounter Care Teams Pharmacy Technician Inpatient Relationship Specialty Start Date End Date Franny Dolan PA-C [address] [place] [phone] PCP - General PHYSICIAN COMMUNITY LIVING COACH 02/05/21 documented as of this encounter
--- OUTSIDE RECORDS SUMMARY | 2024-06-23 15:12 | XMS_ITS | Encounter Summary ---
Author Organization [facility] Address [address] [place] [address]. [place], [place] [id number] [place] [address] Care Team Providers Care Print Buyer Name Role Phone Franny Dolan PA-C Primary Care Provider +1- [phone] Encounter Details Date Type Department Care Team (Latest Contact Info) Description 11/30/2021 Travel Social History Tobacco Use Types Packs/Day [...] suspected to have Coronavirus/COVID-19? No / Unsure 11/30/2021 8:50 AM CDT documented as of this encounter Plan of Treatment Upcoming Encounters Date Type Department Care Team (Late st Contact Info) Description 11/07/2024 9:40 AM CDT Office Visit [facility] Family Medicine - [place] [address] [place] [phone] Franny Dolan PA-C [address] [place] [phone] documented as of this encounter Visit Diagnoses Not on filedocumented in this encounter Additional Health Concerns Assessment Noted Time PHQ-9 Depression Total Score: 0 05/12/20 21 9:32 AM MACHINE RUG CLEANER documented as of this encounter Care Teams Print Buyer Relationship Specialty Start Date End Date Franny Dolan PA-C [address] [place] [id number] PCP - General PHYSICIAN SHAFT SINKER 02/05/21 documented as of this encounter
--- OUTSIDE RECORDS SUMMARY | 2024-06-23 15:12 | XMS_ITS | Encounter Summary ---
Author Organization [facility] Address [address] [place] [address]. [place] [address] [place] [address] Care Team Providers Care Explosive Ordnance Disposal Manager Name Role Phone Franny Dolan PA-C Primary Care Provider +1- [phone] Reason for Visit * Reason Onset Date Comments Medication Information 07/12/2022 Encounter Details Date Type Department Care Team (Late st Contact Info) Description 07/12/2022 Telephone [facility] Family Medicine - [place] [address] [place] [phone] Franny Dolan PA-C [address] [place] [address] Medication Information Social History Tobacco Use Types Packs/Day Years [...] as of this encounter Progress Notes * Perry Samayoa MA - 07/14/2022 10:03 AM CST Called and LVM informing the patient to give us a call back with more information of the psychiatric office number so that we can retreive office note from them. NGING FUNERAL DIRECTOR * Franny Dolan PA-C - 07/13/2022 8:43 AM CST Please let her know that we can discuss at her Jul apt. Also see if we can get the last office notefrom the psychiatrist office NGING FUNERAL DIRECTOR * Peyton Carlson MA - 07/12/2022 4:33 PM CST Per pts Dr did not order new more like a suggestion NGING FUNERAL DIRECTOR * Franny Dolan PA-C - 07/12/2022 4:15 PM CST Please call to see if this was just an FYI that she is starting this NGING FUNERAL DIRECTOR * Shannon Munoz - 07/12/2022 11:09 AM CST Patient came in office today stating that she is seeing Aneesh Cullen MD. Patient stated that the doctor above recommended this medication. Aripiprazole 0.5 MG. If any questions: [phone] EXT: [id number] NGING FUNERAL DIRECTOR documented in this encounter Plan of Treatment Upcoming Encounters Date Type Department Care Team (Late st Contact Info) Description 11/07/2024 9:40 AM CDT Office Visit [facility] Family Medicine - [place] [address] [place] [phone] Franny Dolan PA-C [address] [place] [phone] documented as of this encounter Visit Diagnoses Not on filedocumented in this encounter Additional Health Concerns Assessment Noted Time PHQ-9 Depression Total Score: 0 05/12/20 21 9:32 AM ARRANGING FUNERAL DIRECTOR documented as of this encounter Care Teams Explosive Ordnance Disposal Manager Relationship Specialty Start Date End Date Franny Dolan PA-C [address] [place] [phone] PCP - General PHYSICIAN SUPERVISOR HARVESTING 02/05/21 documented as of this encounter
--- OUTSIDE RECORDS SUMMARY | 2024-06-23 15:12 | XMS_ITS | Encounter Summary ---
Author Organization [facility] Address [facility] [place] [address] [place] [address] Care Team Providers Care Fermentation Scientist Name Role Phone Kami Edmond PA-C Primary Care Provider +1- [phone] Reason for Referral * Procedure (Routine) - Closed Specialty Diagnoses / Procedures Referred By Contpascual t Referred To Contact Diagnoses Chronic cough Dyspnea, unspecified type Procedures Complete PFT (pre/post [place], Lung Vol, Diff Capacity) (07366, 30579, 15666, 40167) Kami Edmond PA-C [address] [place] [address] Phone: tel: fax: Referral ID Status Reason Start Date Expiration Date Visits Re quested Visits Authorized [id number] Closed 08/17/2022 09/17/2023 1 1 AL ACCOUNTING CLERK Reason for Visit * Reason Comments Hypertension Encounter Details Date Type Department Care Team (Late st Contact Info) Description 08/17/2022 11:00 AM FISCAL ACCOUNTING CLERK Office Visit [facility] Family Medicine - [place] [phone] Kami Edmond PA-C [address] [place] [address] Hypertension Social History Tobacco Use Types Packs/Day [...] Coronavirus/COVID-19? No / Unsure 08/17/2022 10:34 AM FISCAL ACCOUNTING CLERK documented as of this encounter Last Filed Vital Signs Vital Sign Reading Time Taken Comments Blood Pressure 150/90 08/17/2022 11:51 AM FISCAL ACCOUNTING CLERK Pulse 70 08/17/2022 11:04 AM FISCAL ACCOUNTING CLERK Temperature 36.6 ??C (97.9 ??F) 08/17/2022 1 1:04 AM FISCAL ACCOUNTING CLERK Respiratory Rate 18 08/17/2022 11:0 4 AM FISCAL ACCOUNTING CLERK Oxygen Saturation 98% 08/17/2022 11: 04 AM FISCAL ACCOUNTING CLERK Inhaled Oxygen Concentration - - Weight 125.9 kg (277 lb 9.6 oz) 023 11:04 AM FISCAL ACCOUNTING CLERK Height 165.1 cm (5' 5 ) 08/17/2022 11:0 4 AM FISCAL ACCOUNTING CLERK Body Mass Index 46.2 08/17/2022 11:04 AM FISCAL ACCOUNTING CLERK documented in this encounter Progress Notes * Kami Edmond PA-C - 08/17/2022 11:00 AM CST Reason for Visit: Hypertension History of Present Illness: Patient here for hypertension follow up. Takes all medication daily. Tries to follow diet. She never started the lisinopril, somehow she never got it at the pharmacy. She has been having a cough constantly for a few weeks. She denies fever, sore throat, congestion, and ear pain. She feels it is tight in her chest and hard to breath with the weather changes. She takes flonase and zyrtec for allergies. She is wondering about asthma testing. She used to smoke when she was younger. Denies chest pain. She has been overwhelmed the last several weeks with remodeling her bedroom and family issues with her children. She can't stop worrying about things. She feels her depression has been ok. ROS: Review of Systems Constitutional: Negative for fever. HENT: Negative for congestion, ear pain and sore throat. Respiratory: Positive for cough and shortness of breath. Cardiovascular: Negative for chest pain. Psychiatric/Behavioral: Negative for depression, self-injury and suicidal ideas. The patient is nervous/anxious. All other systems reviewed and are negative. Medications: Current Outpatient Medications: ??? acetaminophen CR 650 MG Tab CR 8 hr tablet, Take 650 mg by mouth., Disp: , Rfl: ??? albuterol sulfate HFA 108 (90 Base) MCG/ACT inhaler, Inhale 2 puffs into the lungs every 6 (six) hours as needed for Wheezing., Disp: 18 g, Rfl: 0 ??? benzonatate (TESSALON PERLES) 100 MG capsule, Take 1 capsule (100 mg total) by mouth 3 (three) times daily as needed for Cough., Disp: 20 capsule, Rfl: 0 ??? busPIRone (BUSPAR) 15 MG tablet, Take 1 tablet (15 mg total) by mouth 2 (two) times daily., Disp: 180 tablet, Rfl: 1 ??? cetirizine (ZYRTEC) 10 MG tablet, Take 1 tablet (10 mg total) by mouth daily., Disp: 90 tablet,Rfl: 3 ??? cyclobenzaprine 10 MG tablet, Take 10 mg by mouth., Disp: , Rfl: ??? DULoxetine (CYMBALTA) 60 MG capsule, TAKE 1 CAPSULE(60 MG) BY MOUTH DAILY, Disp: 90 capsule, Rfl: 1 ??? fenofibrate micronized 134 MG capsule, Take 1 capsule (134 mg total) by mouth daily. with food., Disp: 90 capsule, Rfl: 3 ??? fluticasone propionate 50 MCG/ACT nasal spray, 2 sprays by Nasal route daily., Disp: , Rfl: ??? glipiZIDE XL (GLUCOTROL XL) 10 MG 24 hr tablet, TAKE 1 TABLET BY MOUTH TWICE DAILY. DO NOT BREAK OR CRUSH TABLET, Disp: 180 tablet, Rfl: 1 ??? glucosamine-chondroitin 500-400 mg Tab tablet, Take 1 tablet by mouth 3 (three) times daily., Disp: , Rfl: ??? hydroCHLOROthiazide (HYDRODIURIL) 25 MG tablet, TAKE 1 TABLET(25 MG) BY MOUTH EVERY MORNING, Disp: 30 tablet, Rfl: 5 ??? levothyroxine (SYNTHROID) 100 MCG tablet, Take 1 tablet (100 mcg total) by mouth every morning., Disp: 90 tablet, Rfl: 1 ??? lisinopril (PRINIVIL) 10 MG tablet, Take 1 tablet (10 mg total) by mouth daily., Disp: 30 tablet, Rfl: 5 ??? metFORMIN ER (GLUCOPHAGE XR) 500 MG 24 hr tablet, Take 1 tablet (500 mg total) by mouth daily with breakfast., Disp: 30 tablet, Rfl: 5 ??? Multiple Vitamin (MULTIVITAMIN) capsule, Take 1 capsule by mouth daily., Disp: , Rfl: ??? nystatin (MYCOSTATIN) powder, Apply topically 3 (three) times daily., Disp: 60 g, Rfl: 1 Allergies Allergen Reactions ??? Pollen Extract Runny Nose ??? Bee Pollen Runny Nose Tree pollen ??? Dust Mite Extract Runny Nose ? ? Molds & Smuts Runny Nose History reviewed. No pertinent past medical history. History reviewed. No pertinent surgical history. Social History Socioeconomic History ??? Marital status: Tobacco Use ??? Smoking status: Former Types: Cigarettes Quit date: 1997 Years since quittin.1 ??? Smokeless tobacco: Never Vaping Use ??? Vaping Use: Never used Substance and Sexual Activity ??? Alcohol use: Yes Comment: holidays only ??? Drug use: Never E-Cigarettes Questions Responses E-Cigarette Use Never User E-cigarette/Vaping Substances Questions Responses Nicotine No THC No CBD No Flavoring No E-cigarette/Vaping Devices Questions Responses Disposable No Pre-filled or Refillable Cartridge No Refillable Tank No Pre-filled Pod No Family History Problem Relation Name Age of Onset ??? Diabetes Mother ??? Diabetes Father Family Status Relation Name Status ??? Mother ??? Father Physical Exam Vitals reviewed. Constitutional: Appearance: Normal appearance. Neck: Thyroid: No thyromegaly. Cardiovascular: Rate and Rhythm: Normal rate and regular rhythm. Pulmonary: Effort: Pulmonary effort is normal. Breath sounds: Normal breath sounds. Musculoskeletal: Right lower leg: No edema. Left lower leg: No edema. Neurological: Mental Status: She is alert. Psychiatric: Mood and Affect: Mood is anxious. Filed Vitals: 08/17/22 1104 08/17/22 1151 BP: (!) 153/80 (!) 150/90 Pulse: 70 Resp: 18 Temp: 97.9 ??F (36.6 ??C) TempSrc: Temporal SpO2: 98% Weight: 125.9 kg (277 lb 9.6 oz) Height: 5' 5 (1.651 m) Diagnoses/Impression: 1. Essential hypertension lisinopril (PRINIVIL) 10 MG tablet 2. Morbid (severe) obesity due to excess calories ([facility]) 3. Body mass index (BMI) 45.0-49.9, adult ([facility]) 4. Chronic cough benzonatate (TESSALON PERLES) 100 MG capsule Complete PFT (pre/post [place], Lung Vol, Diff Capacity) (28529, 02298, 82788, 73703) 5. Dyspnea, unspecified type Complete PFT (pre/post [place], Lung Vol, Diff Capacity) (02111, 28003, 04676, 98185) albuterol sulfate HFA 108 (90 Base) MCG/ACT inhaler 6. Allergy, subsequent encounter albuterol sulfate HFA 108 (90 Base) MCG/ACT inhaler 7. Generalized anxiety disorder busPIRone (BUSPAR) 15 MG tablet Recommendations and Plan: She will start the lisinopril for HTN, resent to pharmacy. Continue same meds for HTN, and allergies. Discussed diet and exercise. She will use tessalon perles and albuterol prn. She will have PFT toevaluate cough and shortness of breath for possible COPD or asthma. She will increase buspar for anxiety. She will follow up in September/October. Orders Placed This Encounter ??? Complete PFT (pre/post [place], Lung Vol, Diff Capacity) (89025, 97316, 23661, 92766) ??? lisinopril (PRINIVIL) 10 MG tablet ??? benzonatate (TESSALON PERLES) 100 MG capsule ??? albuterol sulfate HFA 108 (90 Base) MCG/ACT inhaler ??? busPIRone (BUSPAR) 15 MG tablet Reviewed and updated this visit by provider: Tobacco Allergies Meds Problems Med Hx Surg Hx Fam Hx KAMI EDMOND PA-C Referring Provider: No ref. provider found PCP: KAMI EDMOND PA-C AL ACCOUNTING CLERK documented in this encounter Plan of Treatment Upcoming Encounters Date Type Department Care Team (Late st Contact Info) Description 11/07/2024 9:40 AM CDT Office Visit [facility] Family Medicine - [place] [phone] Kami Edmond PA-C [address] [place] [address] documented as of this encounter Results * Complete PFT (pre/post [place], Lung Vol, Diff Capacity) (37512, 18457, 28260, 85775) (12/22/2022 6:00 AM CDT) Narrative [facility] - 12/22/2022 6:00 AM CDT Sal Chang MD ? 12/25/2022 ??8:46 AM ?? [facility] PULMONARY FUNCTION TEST REPORT Kristal Bustos INTERPRETATION [...] limits 4. ??Unadjusted DLCO within normal limits SAL CHANG MD Procedure Note Sal Chang MD - 12/22/2022 6:00 AM CDT [facility] PULMONARY FUNCTION TEST REPORT Kristal Bustos INTERPRETATION [...] limits 4. Unadjusted DLCO within normal limits SAL CHANG MD Kami Edmond PA-C PFT ORDERABLES Final Resu lt [facility] [address] [place] [address], documented in this encounter Visit Diagnoses Diagnosis Essential hypertension- Primary Unspecified essential hypertension Morbid (severe) obesity due to excess calories ([facility]) Body mass index (BMI) 45.0-49.9, adult ([facility]) Chronic cough Cough Dyspnea, unspecified type Allergy, subsequent encounter Generalized anxiety disorder Chronic cough Cough Dyspnea, unspecified type documented in this encounter Additional Health Concerns Assessment Noted Time PHQ-9 Depression Total Score: 13 023 8:53 AM FISCAL ACCOUNTING CLERK documented as of this encounter Care Teams Fermentation Scientist Relationship Specialty Start Date End Date Kami Edmond PA-C [address] [place] [address] PCP - General PHYSICIAN ASSISTANT COUNSEL 02/05/21 documented as of this encounter
--- OUTSIDE RECORDS SUMMARY | 2024-06-23 15:12 | XMS_ITS | Encounter Summary ---
Author Organization [facility] Address [address] [place] [address]. [place], [place] [id number] [place] [address] Care Team Providers Care Recruiter Manager Name Role Phone Franny Dolan PA-C Primary Care Provider +1- [phone] Encounter Details Date Type Department Care Team (Latest Contact Info) Description 09/10/2021 Scan HEALTH INFO SRVCS Scanned, Documents Social [...] Recorded In the last 10 days, have stacy u been in contact with someone who was confirmed or suspected to have Coronavirus/COVID-19? No / Unsure 08/30/2021 9:31 AM UNDERGRADUATE INTERN documented as of this encounter Plan of Treatment Upcoming Encounters Date Type Department Care Team (Late st Contact Info) Description 11/07/2024 9:40 AM CDT Office Visit [facility] Family Medicine - [place] [address] [place] [phone] Franny Dolan PA-C [address] [place] [address] documented as of this encounter Visit Diagnoses Not on filedocumented in this encounter Additional Health Concerns Assessment Noted Time PHQ-9 Depression Total Score: 0 05/12/20 21 9:32 AM UNDERGRADUATE INTERN documented as of this encounter Care Teams Recruiter Manager Relationship Specialty Start Date End Date Franny Dolan PA-C [address] [place] [phone] PCP - General PHYSICIAN HURL SHAKER 02/05/21 documented as of this encounter
--- OUTSIDE RECORDS SUMMARY | 2024-06-23 15:12 | XMS_ITS | Encounter Summary ---
Author Organization [facility] Address [address] [place] [address]. [place] [address] [place] [address] Care Team Providers Care History Faculty Member Name Role Phone Kami Edmond PA-C Primary Care Provider +1- [phone] Reason for Visit * Reason Onset Date Comments Refill Request 01/05/2022 Encounter Details Date Type Department Care Team (Late st Contact Info) Description 01/05/2022 Telephone [facility] Family Medicine - [employer] [address] [place] [address] Kami Edmond PA-C [address] [place] [address] Refill Request Social History Tobacco [...] as of this encounter Progress Notes * Marie Kwong - 01/05/2022 1:45 PM CDT Aide from [facility] called on pt behalf needing a prescription refill for: DULOXENTINE 60 MG tablet (take 1 capsule daily) FENOFIBRATE MICRONIZED 134 MG capsule (take 1 capsule daily) Last visit with KAMI EDMOND in FAMILY PRACTICE was on: 11/30/2021 in [facility] [place] [facility] Next visit with KAMI EDMOND in FAMILY PRACTICE is on: 03/02/2022 in [facility] please send all/NEW prescriptions to go to [facility] in [place] documented in this encounter Plan of Treatment Upcoming Encounters Date Type Department Care Team (Late st Contact Info) Description 11/07/2024 9:40 AM CDT Office Visit [facility] Family Medicine [address] [phone] Kami Edmond PA-C [address] [place] [address] documented as of this encounter Visit Diagnoses Diagnosis Anxiety Anxiety state, unspecified Moderate episode of recurrent major depressive disorder (CMS/HCC [facility]/HCC) Mixed hyperlipidemia documented in this encounter Additional Health Concerns Assessment Noted Time PHQ-9 Depression Total Score: 0 05/12/20 21 9:32 AM TUBE CARRIER documented as of this encounter Care Teams History Faculty Member Relationship Specialty Start Date End Date Kami Edmond PA-C [address] [place] [phone] PCP - General PHYSICIAN DRUM MAKER 02/05/21 documented as of this encounter
--- OUTSIDE RECORDS SUMMARY | 2024-06-23 15:12 | XMS_ITS | Encounter Summary ---
Author Organization [facility] Address [address] [place] [address]. [place], [place] [phone] [place] [address] Care Team Providers Care Sales Development Executive Name Role Phone Franny Dolan PA-C Primary Care Provider +1- [phone] Encounter Details Date Type Department Care Team (Latest Contact Info) Description 03/02/2022 Travel Social History Tobacco Use Types Packs/Day [...] suspected to have Coronavirus/COVID-19? No / Unsure 03/02/2022 9:35 AM CDT documented as of this encounter Plan of Treatment Upcoming Encounters Date Type Department Care Team (Late st Contact Info) Description 11/07/2024 9:40 AM CDT Office Visit [facility] Family Medicine - [place] [address] [place] [phone] Franny Dolan PA-C [address] [place] [address] documented as of this encounter Visit Diagnoses Not on filedocumented in this encounter Additional Health Concerns Assessment Noted Time PHQ-9 Depression Total Score: 0 05/12/20 21 9:32 AM INVESTIGATOR OPERATOR documented as of this encounter Care Teams Sales Development Executive Relationship Specialty Start Date End Date Franny Dolan PA-C [address] [place] [address] PCP - General PHYSICIAN BUILDING PRESSURE WASHER 02/05/21 documented as of this encounter
--- OUTSIDE RECORDS SUMMARY | 2024-06-23 15:12 | XMS_ITS | Encounter Summary ---
Author Organization [facility] Address [address] [place] [address]. [place] [address] [place] [address] Care Team Providers Care Core Filer Name Role Phone Franny Dolan PA-C Primary Care Provider +1- [phone] Encounter Details Date Type Department Care Team (Late st Contact Info) Description 05/31/2021 Orders Only [facility] Family Medicine - [place] [address] [place] [phone] Franny Dolan PA-C [address] [place] [address] Social History Tobacco Use Types Packs/Day Years [...] COVID-19? No / Unsure 05/30/2021 2:23 PM DUCK BILL OPERATOR documented as of this encounter Plan of Treatment Upcoming Encounters Date Type Department Care Team (Late st Contact Info) Description 11/07/2024 9:40 AM CDT Office Visit [facility] Family Medicine - [place] [address] [place] [phone] Franny Dolan PA-C [address] [place] [address] documented as of this encounter Visit Diagnoses Diagnosis Preop examination Preoperative examination, unspecified documented in this encounter Additional Health Concerns Infection Onset Date Last Indicated Resolved Time COVID-19 Rule Out 05/31/2021 05/31/2021 05/31/2021 11:28 AM DUCK BILL OPERATOR COVID-19 Rule Out 05/31/2021 05/31/2021 06/01/2021 11:59 PM DUCK BILL OPERATOR Assessment Noted Time PHQ-9 Depression Total Score: 0 05/12/20 9:32 AM DUCK BILL OPERATOR documented as of this encounter Care Teams Core Filer Relationship Specialty Start Date End Date Franny Dolan PA-C [address] [place] [address] PCP - General PHYSICIAN GLASS CURVATURE GAUGER 02/05/21 documented as of this encounter
--- OUTSIDE RECORDS SUMMARY | 2024-06-23 15:12 | XMS_ITS | Encounter Summary ---
Author Organization [facility] Address [address] [place] [address]. [place] [address] [place] [address] Care Team Providers Care Access Manager Name Role Phone Kami Edmond PA-C Primary Care Provider +1- [phone] Reason for Visit * Reason Comments Skin Problem skin breaking out rhea th under arms, numbness both hands Encounter Details Date Type Department Care Team (Late st Contact Info) Description 03/22/2021 11:00 AM CDT Office Visit [facility] Family Medicine - [place] [phone] Kami Edmond PA-C [address] [place] [address] Skin Problem (skin breaking out both under arms, numbness both hands ) Social History Tobacco Use Types Packs/Day [...] Sign Reading Time Taken Comments Blood Pressure 128/86 03/22/2021 11:10 AM CDT Pulse 67 03/22/2021 11:10 AM CDT Temperature 36.4 ??C (97.6 ??F) 03/22/2021 11:10 AM C DT Respiratory Rate 20 03/22/2021 11:10 AM CDT Oxygen Saturation 98% 03/22/2021 11:10 AM CDT Inhaled Oxygen Concentration - - Weight 123.8 kg (273 lb) 03/22/2021 11:10 AM CDT Height 162.6 cm (5' 4 ) 03/22/2021 11:10 AM CDT Body Mass Index 46.86 03/22/2021 11:10 AM CDT documented in this encounter Progress Notes * Kami Edmond PA-C - 03/22/2021 11:00 AM CDT Reason for Visit: Skin Problem (skin breaking out both under arms, numbness both hands ) History of Present Illness: [facility] She felt weak and shaky the day she went to ER.She had labs, CT, and chest xray and all were normal except blood sugar high and UTI per patient. She did have a UTI on urine and was given bactrim for 3 days. She feels better now. She denies dysuria, or frequent urine. She is having some neck pain and some arm numbness on and off for a few weeks. She has apt with Dr. Wolff an ortho she got from her insurance company when she called them. She isdoing better. She has been having rash under her breasts and in her groin folds for a year. She uses the nystatin/triamcinolone cream and it isn't better. She is worse now because she constantly sweats. She always gets yeast infection on antibiotics so can she have a diflucan like usual. ROS: Review of Systems Respiratory: Negative for shortness of breath. Cardiovascular: Negative for chest pain. Genitourinary: Negative for dysuria and frequency. Psychiatric/Behavioral: Negative for suicidal ideas. All other [...] by mouth daily., Disp: , Rfl: ??? fluconazole (DIFLUCAN) 150 MG tablet, Take 1 tablet (150 mg total) by mouth once for 1 dose., Disp: 1 tablet, Rfl: 0 ??? fluticasone propionate 50 MCG/ACT nasal spray, [...] mouth daily., Disp: , Rfl: ??? nystatin powder, Apply topically 3 (three) times daily., Disp: 60 g, Rfl: 1 ??? nystatin-triamcinolone cream, Apply topically 2 (two) [...] ??? Smoking status: Former Smoker Quit date: 1997 Years since quittin.7 ??? Smokeless tobacco: Never Used Substance and [...] Gatherings with Friends and Family: ??? Attends Rastafarian Services: ??? Active Member of Clubs or [...] Left lower leg: No edema. Skin: Comments: Bilateral inguinal folds and under bilateral breasts red yeast rash Neurological: Mental Status: She is alert. Psychiatric: Mood and Affect: Mood normal. Filed Vitals: 03/22/21 1110 BP: 128/86 Pulse: 67 Resp: 20 Temp: 97.6 ??F (36.4 ??C) TempSrc: Temporal SpO2: 98% Weight: 123.8 kg (273 lb) Height: 5' 4 (1.626 m) PainSc: 0 (0-10 Scale) Diagnoses/Impression: 1. Yeast infection of the skin nystatin powder 2. Yeast infection of the vagina fluconazole (DIFLUCAN) 150 MG tablet Recommendations and Plan: Discussed keeping her folds as dry as possible and padding between skin folds with nonstick paddingto decrease irritation. She will try nystatin powder and diflucan. She has a follow up apt for April after her labs that she plans to keep. I will review ER records when we get them. She will finish bactrim as UTI is getting better. Orders Placed This Encounter ??? nystatin powder ??? fluconazole (DIFLUCAN) 150 MG tablet Reviewed and updated this visit by provider: KAMI EDMOND PA-C Referring Provider: No ref. provider found PCP: KAMI EDMOND PA-C documented in this encounter Plan of Treatment Upcoming Encounters Date Type Department Care Team (Late st Contact Info) Description 11/07/2024 9:40 AM CDT Office Visit [facility] Family Medicine - [address] [phone] Kami Edmond PA-C [address] [place] [address] documented as of this encounter Visit Diagnoses Diagnosis Yeast infection of the skin- Primary Candidiasis of skin and nails Yeast infection of the vagina Candidiasis of vulva and vagina documented in this encounter Additional Health Concerns Assessment Noted Time PHQ-9 Depression Total Score: 13 021 11:45 AM CDT documented as of this encounter Care Teams Access Manager Relationship Specialty Start Date End Date Kami Edmond PA-C [address] [place] [address] PCP - General PHYSICIAN FARM EQUIPMENT MAINTENANCE SUPERVISOR 02/05/21 documented as of this encounter
--- OUTSIDE RECORDS SUMMARY | 2024-06-23 15:12 | XMS_ITS | Encounter Summary ---
Author Organization [facility] Address [address] [place] [address]. [place], [place] [address] [place] [address] Care Team Providers Care Internet Marketing Director Name Role Phone Franny Dolan PA-C Primary Care Provider +1- [phone] Encounter Details Date Type Department Care Team (Latest Contact Info) Description 02/09/2021 Travel Social History Tobacco Use Types Packs/Day [...] Description 11/07/2024 9:40 AM CDT Office Visit [facility] Family Medicine [place] [address] [place] [phone] Franny Dolan PA-C [address] [place] [address] documented as of this encounter Visit Diagnoses Not on filedocumented in this encounter Additional Health Concerns Assessment Noted Time PHQ-9 Depression Total Score: 13 021 11:45 AM CDT documented as of this encounter Care Teams Internet Marketing Director Relationship Specialty Start Date End Date Franny Dolan PA-C [address] [place] [address] PCP - General PHYSICIAN EMPLOYMENT CONSULTANT 02/05/21 documented as of this encounter
--- OUTSIDE RECORDS SUMMARY | 2024-06-23 15:12 | XMS_ITS | Encounter Summary ---
Author Organization [facility] Address [address] [place] [address]. [place], [place] [address] [place] [address] Care Team Providers Care Dog Groomer Name Role Phone Alex Browne MD Primary Care Provider Unav pritiable Franny Dolan PA-C Primary Care Provider +1- [phone] Encounter Details Date Type Department Care Team (Late st Contact Info) Description 02/04/2021 Orders Only [address] [phone] Alex Browne MD Social History Tobacco Use Types Packs/Day Years Used Date Smoking Tobacco: Never Assessed Comments Unknown Sex and Gender Information Value Date Recorded Sex Assigned at Not on file Legal Sex Female 6:13 PM CDT Gender Identity Not on file Sexual Orientation Not on file documented as of this encounter Plan of Treatment Upcoming Encounters Date Type Department Care Team (Late st Contact Info) Description 11/07/2024 9:40 AM CDT Office Visit [address] [phone] Franny Dolan PA-C [address] [place] [address] documented as of this encounter Procedures Procedure Name Priority Date/Time Associated Diagnosis Comments HEMOGLOBIN, GLYCOSYLATED Routine 02/04/2021 9:39 AM CDT COMPREHENSIVE METABOLIC PANEL Routine 02/04/2021 9:39 AM CDT documented in this encounter Results * (ABNORMAL) HEMOGLOBIN, GLYCOSYLATED (02/04/2021 9:39 AM CDT) HGB A1C 6.8(H) <5.7 % of total Hgb [facility] 02/04/2021 9:39 AM CDT 02/04/2021 9:39 AM CDT Narrative [facility] - 02/05/2021 2:56 AM CDT FASTING:YES COLLECTION KIT GIVEN TO PATIENT. PATIENT ADVISED TO RETURN. FASTING: YES us Alex Browne MD LABORATORY Final Resul t [facility] [address] [place] [address] * (ABNORMAL) COMPREHENSIVE METABOLIC PANEL (02/04/2021 9:39 AM CDT) GLUCOSE 158(H) 65 - 99 mg/dL [facility] Comment: ? Fasting reference interval For someone without known diabetes, a glucose value >125 mg/dL indicates that they may have diabetes and this should be confirmed with a follow-up test. BUN 15 7 - 25 mg/dL [facility] CREATININE S/P/B 0.96 0.50 - 0.99 mg/dL [facility] Comment: For patients >49 years of age, the reference limit for Creatinine is approximately 13% higher for people identified as -Algerian. EGFR NON-AFR. AMER. 62 > OR = 60 mL/min/1 .73m2 [facility] EGFR AFR. AMER. 72 > OR = 60 mL/min/1 .73m2 [facility] BUN CREATININE RATIO NOT APPLICABLE 6 - 22 (calc) [facility] SODIUM S/P/B 139 135 - 146 mmol/L [facility] POTASSIUM S/P/B 4.3 3.5 - 5.3 mmol/L [facility] CHLORIDE S/P/B 102 98 - 110 mmol/L [facility] CO2 23 20 - 32 mmol/L [facility] CALCIUM S/P/B 10.5(H) 8.6 - 10.4 mg/dL [facility] TOTAL PROTEIN S/P/B 6.6 6.1 - 8.1 g/dL [facility] ALBUMIN S/P/B 4.5 3.6 - 5.1 g/dL [facility] GLOBULIN 2.1 1.9 - 3.7 g/dL (calc) [facility] ALBUMIN/GLOBULIN RATIO 2.1 1.0 - 2.5 (calc) [facility] BILIRUBIN TOTAL S/P/B 0.6 0.2 - 1.2 mg/dL [facility] ALKALINE PHOSPHATASE S/P/B 100 37 - 153 U/L [facility] AST 44(H) 10 - 35 U/L [facility] ALT 55(H) 6 - 29 U/L [facility] 02/04/2021 9:39 AM CDT 02/04/2021 9:39 AM CDT Narrative [facility] - 02/05/2021 2:56 AM CDT FASTING:YES COLLECTION KIT GIVEN TO PATIENT. PATIENT ADVISED TO RETURN. FASTING: YES us Alex Browne MD LABORATORY Final Resul t [facility] [address] [place] [address] documented in this encounter Visit Diagnoses Not on filedocumented in this encounter Care Teams Dog Groomer Relationship Specialty Start Date End Date Alex Browne MD PCP - General 08/29/14 02/04/21 Franny Dolan PA-C [address] [place] [address]. [place] [address] PCP - General PHYSICIAN DATA CONVERSION OPERATOR 02/05/21 documented as of this encounter
--- OUTSIDE RECORDS SUMMARY | 2024-06-23 15:12 | XMS_ITS | Encounter Summary ---
Author Organization [facility] Address [address] [place] [address]. [place] [address] [place] [address] Care Team Providers Care Renderer Name Role Phone Kami Edmond PA-C Primary Care Provider [phone]- [phone] Encounter Details Date Type Department Care Team (Late st Contact Info) Description 05/12/2021 10:30 AM PHOTOGRAPHIC REPRODUCTION TECHNICIAN - 05/12/2021 11:59 PM [email or web address] Hospital Encounter [facility] Cardiology EKG [address] [place], [place] [phone] Kami Edmond PA-C [address] [place] [address] Discharge Disposition: Home or Self Care (Routine [...] have Coronavirus / COVID-19? No / Unsure 05/12/2021 9:12 AM PHOTOGRAPHIC REPRODUCTION TECHNICIAN documented as of this encounter Medications at Time of Discharge acetaminophen CR 650 MG Tab CR 8 hr tablet Take 1 tablet (650 mg total) by mouth. fluticasone propionate 50 MCG/ACT nasal spray 2 sprays by Nasal route daily. glucosamine-chondroi tin 500-400 mg Tab tablet Take 1 tablet by mouth 3 (three) times daily. Multiple Vitamin (MULTIVITAMIN) capsule Take 1 capsule by mouth daily. aspirin EC 81 MG tablet Take 81 mg by mouth daily. 2 busPIRone 7.5 MG tabletIndications:An xiety Take 1 tablet (7.5 mg total) by mouth 2 (two) times daily. 180 tablet 1 02/08/2021 2 CETIRIZINE 10 MG tabletIndications:Al lergies TAKE 1 TABLET DAILY 90 tablet 3 04/26/2021 2 clobetasol 0.05 % ointment Apply topically 2 (two) times daily. 2 DULOXETINE 60 MG capsuleIndications:A nxiety,Moderate episode of recurrent major depressive disorder ([facility] HHS/HCC) TAKE 1 CAPSULE DAILY 90 capsule 3 04/08/2021 2 fenofibrate micronized 134 MG capsuleIndications:M ixed hyperlipidemia Take 1 capsule (134 mg total) by mouth daily. 90 capsule 1 05/12/2021 2 hydroCHLOROthiazide 12.5 MG capsule Take 12.5 mg by mouth daily. 2 METFORMIN 500 MG tabletIndications:Ty pe 2 diabetes mellitus without complication, without long-term current use of insulin ([facility] HHS/HCC) TAKE 1 TABLET TWICE A DAY 180 tablet 05/10/2021 2 nystatin powderIndications:Ye ast infection of the skin Apply topically 3 (three) times daily. 60 g 1 03/22/2021 2 nystatin-triamcinolo ne creamIndications:Yea st infection of the skin Apply topically 2 (two) times daily as needed. apply to affected area 60 g 1 02/09/2021 2 SYNTHROID 100 MCG tabletIndications:Hy pothyroidism, unspecified type Take 1 tablet (100 mcg total) by mouth every morning. 90 tablet 1 05/12/2021 3 documented as of this encounter Plan of Treatment Upcoming Encounters Date Type Department Care Team (Late st Contact Info) Description 11/07/2024 9:40 AM CDT Office Visit [facility] Family Medicine - [place] [address] [place] [phone] Kami Edmond PA-C [address] [place] [address] documented as of this encounter Procedures Procedure Name Priority Date/Time Associated Diagnosis Comments ECG 12-LEAD Routine 05/12/2021 11:16 AM PHOTOGRAPHIC REPRODUCTION TECHNICIAN Fatty liver documented in this encounter Results * ECG 12 lead (05/12/2021 11:16 AM PHOTOGRAPHIC REPRODUCTION TECHNICIAN) 05/12/2021 11:1 6 AM PHOTOGRAPHIC REPRODUCTION TECHNICIAN Narrative [facility] - 05/12/2021 12:41 PM PHOTOGRAPHIC REPRODUCTION TECHNICIAN ?[facility] ? [address] [facility] ? Test Date: ?2021-05-12 Pat Name: ? ALICIA BOYCE ?Department: ? Room: ? Gender: ? Female ? State Federal Relations Deputy Director: ?? CDN : ?1955 ? Requested By: KAMI ESPINOZAULTS Order Number: [id number] ? Reading : ?? Dimitri Holman ? Measurements Intervals ?[place] ? Rate: ? 56 ? P: ?72 [place]: ? 175 ?QRS: ?8 QRSD: ? 97 ? T: ?26 QT: ? 415 ? QTc: ?402 ? Interpretive Statements SINUS BRADYCARDIA LOW QRS VOLTAGE IN PRECORDIAL LEADS Compared to ECG 03/01/2013 10:00:24 No significant changes OGRAPHIC REPRODUCTION TECHNICIAN Procedure Note Dimitri Holman MD - 05/12/2021 [facility] [place] Test Date: 2021-05-12 Pat Name: ALICIA BOYCE Department: Room: Gender: Female State Federal Relations Deputy Director: GEETA : 1955 Requested By: KAMI EDMOND Order Number: [id number] Reading MD: Dimitri Holman Measurements Intervals [place] Rate: 56 P: 72 [place]: 175 QRS: 8 QRSD: 97 T: 26 QT: 415 QTc: 402 Interpretive Statements SINUS BRADYCARDIA LOW QRS VOLTAGE IN PRECORDIAL LEADS Compared to ECG 03/01/2013 10:00:24 No significant changes OGRAPHIC REPRODUCTION TECHNICIAN us Kami Edmond PA-C ECG ORDERABLES Final Resu lt [facility] ([facility] documented in this encounter Visit Diagnoses Diagnosis Fatty liver- Primary Other chronic nonalcoholic liver disease documented in this encounter Additional Health Concerns Assessment Noted Time PHQ-9 Depression Total Score: 0 05/12/20 21 9:32 AM PHOTOGRAPHIC REPRODUCTION TECHNICIAN documented as of this encounter Care Teams Renderer Relationship Specialty Start Date End Date Kami Edmond PA-C [address] [place] [address] PCP - General PHYSICIAN SULFIDE HEAD OPERATOR 02/05/21 documented as of this encounter
--- OUTSIDE RECORDS SUMMARY | 2024-06-23 15:12 | XMS_ITS | Encounter Summary ---
Author Organization [facility] Address [address] [place] [address]. [place] [address] [place] [address] Care Team Providers Care Aeronautical Drafter Name Role Phone Kami Edmond PA-C Primary Care Provider +1- [phone] Reason for Referral * Imaging (Routine) - Closed Specialty Diagnoses / Procedures Referred By Contpascual t Referred To Contact RADIOLOGY Diagnoses Screening mammogram, encounter for Procedures MG SCREENING W JUAN WENDY DIGI Kami Edmond PA-C [address] [place] [address] Phone: tel: fax: [address] [place] [address] Phone: tel: fax: Referral ID Status Reason Start Date Expiration Date Visits Re quested Visits Authorized [id number] Closed 08/30/2021 09/30/2022 1 1 ING SAW OPERATOR Reason for Visit * Reason Comments Diabetes Patient here for fol low up diabetes. Encounter Details Date Type Department Care Team (Late st Contact Info) Description 08/30/2021 9:40 AM TILTING SAW OPERATOR Office Visit [facility] Family Medicine - [address] [phone] Kami Edmond PA-C [address] [place] [address] Diabetes (Patient here for follow up diabetes. ) Social History Tobacco Use Types Packs/Day [...] Coronavirus/COVID-19? No / Unsure 08/30/2021 9:31 AM TILTING SAW OPERATOR documented as of this encounter Last Filed Vital Signs Vital Sign Reading Time Taken Comments Blood Pressure 136/84 08/30/2021 9:44 AM TILTING SAW OPERATOR Pulse 68 08/30/2021 9:44 AM TILTING SAW OPERATOR Temperature 36.3 ??C (97.3 ??F) 08/30/2021 9:44 AM CS T Respiratory Rate - - Oxygen Saturation 97% 08/30/2021 9:44 AM TILTING SAW OPERATOR Inhaled Oxygen Concentration - - Weight 121.1 kg (267 lb) 08/30/2021 9:44 AM TILTING SAW OPERATOR Height 162.6 cm (5' 4 ) 08/30/2021 9:44 AM TILTING SAW OPERATOR Body Mass Index 45.83 08/30/2021 9:44 AM TILTING SAW OPERATOR documented in this encounter Progress Notes * Kami Edmond PA-C - 08/30/2021 9:40 AM CST Reason for Visit: Diabetes (Patient here for follow up diabetes. ) History of Present Illness: Patient here for follow up diabetes. Takes medications daily. Tries to follow low carb diet. Checksblood sugars daily. Fasting blood sugars have been higher at 180. HgbA1C was 7.4 today. Last eye exam was over a year. She wears CPAP every night. Denies any complaints. ROS: Review of Systems [...] daily., Disp: 180 tablet, Rfl: 1 ??? CETIRIZINE 10 MG tablet, TAKE 1 TABLET DAILY, Disp: 90 tablet, Rfl: 3 ??? clobetasol 0.05 % ointment, Apply topically 2 (two) times daily., Disp: , Rfl: ??? cyclobenzaprine 10 MG tablet, Take 10 mg by mouth., Disp: , Rfl: ??? docusate sodium 100 MG capsule, , Disp: , Rfl: ??? DULOXETINE 60 MG capsule, TAKE 1 CAPSULE DAILY, Disp: 90 capsule, Rfl: 3 ??? fenofibrate micronized 134 MG capsule, Take 1 capsule (134 mg total) by mouth daily., Disp: 90 capsule, Rfl: 1 ??? fluticasone propionate 50 MCG/ACT nasal spray, 2 sprays by Nasal route daily., Disp: , Rfl: ??? glucosamine-chondroitin 500-400 mg Tab tablet, Take 1 tablet by mouth 3 (three) times daily., Disp: , Rfl: ??? hydroCHLOROthiazide 12.5 MG capsule, Take 12.5 mg by mouth daily., Disp: , Rfl: ??? METFORMIN 500 MG tablet, TAKE 1 TABLET TWICE A DAY, Disp: 180 tablet, Rfl: 3 ??? Multiple Vitamin (MULTIVITAMIN) capsule, Take 1 capsule by mouth daily., Disp: , Rfl: ??? nystatin powder, Apply topically 3 (three) times daily., Disp: 60 g, Rfl: 1 ??? nystatin-triamcinolone cream, Apply topically 2 (two) times daily as needed. apply to affected area, Disp: 60 g, Rfl: 1 ??? SYNTHROID 100 MCG tablet, Take 1 tablet (100 mcg total) by mouth every morning., Disp: 90 tablet, Rfl: 1 ??? fluconazole (DIFLUCAN) 200 MG tablet, Take 1 tablet (200 mg total) by mouth daily for 7 days., Disp: 7 tablet, Rfl: 0 Allergies Allergen Reactions ??? Pollen Extract Runny [...] Former Smoker Quit date: 1997 Years since quittin.1 ??? Smokeless tobacco: Never Used Vaping Use ??? Vaping Use: Never used [...] Mood and Affect: Mood normal. Filed Vitals: 08/30/21 0944 BP: 136/84 Pulse: 68 Temp: 97.3 ??F (36.3 ??C) TempSrc: Temporal SpO2: 97% Weight: 121.1 kg (267 lb) Height: 5' 4 (1.626 m) PainSc: 0 (0-10 Scale) Diagnoses/Impression: 1. Screening mammogram, encounter for MG SCREENING W JUAN WENDY DIGI 2. Need for prophylactic vaccination against Streptococcus pneumoniae (pneumococcus) [99469] Pneumovax 23 (Pneumococcal) 3. Type 2 diabetes mellitus without complication, without long-term current use of insulin ([facility]) A1C (BACK OFFICE) COMPREHENSIVE METABOLIC PANEL HEMOGLOBIN, GLYCOSYLATED 4. Essential hypertension COMPREHENSIVE METABOLIC PANEL 5. NIRANJAN (obstructive sleep apnea) 6. Yeast infection of the skin nystatin powder 7. Mixed hyperlipidemia LIPID PANEL 8. Hypothyroidism, unspecified type THYROXINE, FREE (FT4) THYROID STIM HORMONE, TSH Recommendations and Plan: Discuss hbga1c with patient. Continue same meds. Discussed low carb diet and exercise. She will schedule diabetic eye exam on her own. She will wear her CPAP nightly. She will have mammogram when scheduled. She will follow up in 3 months with labs. Orders Placed This Encounter ??? A1C (BACK OFFICE) ??? COMPREHENSIVE METABOLIC PANEL ??? LIPID PANEL ??? THYROXINE, FREE (FT4) ??? THYROID STIM HORMONE, TSH ??? HEMOGLOBIN, GLYCOSYLATED ??? MG SCREENING W JUAN WENDY DIGI ??? [60212] Pneumovax 23 (Pneumococcal) ??? nystatin powder Reviewed and updated this visit by provider: Tobacco Allergies Meds Problems Med Hx Surg Hx Fam Hx KAMI EDMOND PA-C Referring Provider: No ref. provider found PCP: KAMI EDMOND PA-C Cosigned by Alex Browne MD at 09/03/2021 5:33 PM TILTING SAW OPERATOR ING SAW OPERATOR ING SAW OPERATOR documented in this encounter Plan of Treatment Upcoming Encounters Date Type Department Care Team (Late st Contact Info) Description 11/07/2024 9:40 AM CDT Office Visit [facility] Family Medicine - [address] [phone] Kami Edmond PA-C [address] [place] [address] Scheduled Orders Name Type Priority Associated Diagnoses Orde r Schedule MG SCREENING W JUAN WENDY DIGI MAMMO Routine Screening mammogram, encounter for Ordered: 08/30/2021 documented as of this encounter Procedures Procedure Name Priority Date/Time Associated Diagnosis Comments HEMOGLOBIN, GLYCOSYLATED Routine 11/24/2021 7:09 AM CDT Type 2 diabetes mellitus without complication, without long-term current use of insulin ([facility]) COMPREHENSIVE METABOLIC PANEL Routine 11/24/2021 7:09 AM CDT Type 2 diabetes mellitus without complication, without long-term current use of insulin ([facility]) Essential hypertension LIPID PANEL Routine 11/24/2021 7:09 AM CDT Mixed hyperlipidemia THYROXINE, FREE (FT4) Routine 11/24/2021 7:09 AM CDT Hypothyroidism, unspecified type THYROID STIM HORMONE TSH Routine 11/24/2021 7:09 AM CDT Hypothyroidism, unspecified type HEMOGLOBIN, GLYCOSYLATED Today 08/30/2021 Type 2 diabetes mellitus without complication, without long-term current use of insulin ([facility]) documented in this encounter Results * (ABNORMAL) HEMOGLOBIN, GLYCOSYLATED (11/24/2021 7:09 AM CDT) HGB A1C 7.8(H) <5.7 % of total Hgb [facility] Comment: For someone without known diabetes, a [...] for diagnosis of diabetes for children. ?? 11/24/2021 7:09 AM CDT 11/24/2021 7:10 AM CDT Kami Edmond PA-C LABORATORY Final Resu lt [facility] [address] [place] [address] * THYROID STIM HORMONE, TSH (11/24/2021 7:09 AM CDT) TSH 3.26 0.40 - 4.50 mIU/L [facility] 11/24/2021 7:09 AM CDT 11/24/2021 7:10 AM CDT Kami Edmond PA-C LABORATORY Final Resu lt Performing Organization Address [facility] Co de Phone Number [facility] [address] [place] [address] * THYROXINE, FREE (FT4) (11/24/2021 7:09 AM CDT) FREE T4 1.1 0.8 - 1.8 ng/dL [facility] 11/24/2021 7:09 AM CDT 11/24/2021 7:10 AM CDT Kami Edmond PA-C LABORATORY Final Resu lt Performing Organization Address [facility] Co de Phone Number [facility] [address] [place] [address] * LIPID PANEL (11/24/2021 7:09 AM CDT) CHOLESTEROL 133 <200 mg/dL [facility] HDL 62 > OR = 50 mg/dL [facility] TRIGLYCERIDES 142 <150 mg/dL [facility] LDL (CALCULATED) 48 mg/dL (calc) [facility] Comment: Reference range: <100 Desirable range <100 mg/dL for primary prevention; ?? <70 mg/dL for patients with CHD or diabetic patients with > or = 2 CHD risk factors. LDL-C is now calculated using the Prakash calculation, which is a validated novel method providing better accuracy than the Friedewald equation in the estimation of LDL-C. Trino SS et al. CELSA. 2013;310(72): 5906-5061 (http://education.Venustech/faq/IUF770) CHOL/HDL RATIO 2.1 <5.0 (calc) [facility] NON HDL CHOLESTEROL 71 <130 mg/dL (calc) [facility] Comment: For patients with diabetes plus 1 major ASCVD risk factor, treating to a non-HDL-C goal of <100 mg/dL (LDL-C of <70 mg/dL) is considered a therapeutic option. 11/24/2021 7:09 AM CDT 11/24/2021 7:10 AM CDT us Kami Edmond PA-C LABORATORY Final Resu lt [facility] [address] [place] [address] * (ABNORMAL) COMPREHENSIVE METABOLIC PANEL (11/24/2021 7:09 AM CDT) Pathologist [facility] GLUCOSE 157(H) 65 - 99 mg/dL [facility] Comment: ? Fasting reference interval For someone without known diabetes, a glucose value >125 mg/dL indicates that they may have diabetes and this should be confirmed with a follow-up test. BUN 12 7 - 25 mg/dL [facility] CREATININE S/P/B 0.82 0.50 - 0.99 mg/dL [facility] Comment: For patients >49 years of age, the reference limit for Creatinine is approximately 13% higher for people identified as -Nicaraguan. EGFR NON-AFR. AMER. 75 > OR = 60 mL/min/1 .73m2 [facility] EGFR AFR. AMER. 87 > OR = 60 mL/min/1 .73m2 [facility] BUN CREATININE RATIO NOT APPLICABLE 6 - 22 (calc) [facility] SODIUM S/P/B 136 135 - 146 mmol/L [facility] POTASSIUM S/P/B 4.5 3.5 - 5.3 mmol/L [facility] CHLORIDE S/P/B 98 98 - 110 mmol/L [facility] CO2 26 20 - 32 mmol/L [facility] CALCIUM S/P/B 10.2 8.6 - 10.4 mg/dL [facility] TOTAL PROTEIN S/P/B 7.3 6.1 - 8.1 g/dL [facility] ALBUMIN S/P/B 4.3 3.6 - 5.1 g/dL [facility] GLOBULIN 3.0 1.9 - 3.7 g/dL (calc) [facility] ALBUMIN/GLOBULIN RATIO 1.4 1.0 - 2.5 (calc) [facility] BILIRUBIN TOTAL S/P/B 0.7 0.2 - 1.2 mg/dL [facility] ALKALINE PHOSPHATASE S/P/B 138 37 - 153 U/L [facility] AST 30 10 - 35 U/L [facility] ALT 32(H) 6 - 29 U/L [facility] 11/24/2021 7:09 AM CDT 11/24/2021 7:10 AM CDT us Kami Edmond PA-C LABORATORY Final Resu lt [facility] [address] [address] [address] * A1C (BACK OFFICE) (08/30/2021) HGB A1C 7.4 % MG-[address] 08/30/2021 us Kami Edmond PA-C LABORATORY Final Resu lt -[facility] [address] [place] [address], documented in this encounter Visit Diagnoses Diagnosis Screening mammogram, encounter for- Primary Need for prophylactic vaccination against Streptococcus pneumoniae (pneumococcus) Need for prophylactic vaccination against streptococcus pneumoniae (pneumococcus) Type 2 diabetes mellitus without complication, without long-term current use of insulin ([facility]) Essential hypertension Unspecified essential hypertension NIRANJAN (obstructive sleep apnea) Obstructive sleep apnea (adult) (pediatric) Yeast infection of the skin Candidiasis of skin and nails Mixed hyperlipidemia Hypothyroidism, unspecified type documented in this encounter Additional Health Concerns Assessment Noted Time PHQ-9 Depression Total Score: 0 05/12/20 21 9:32 AM TILTING SAW OPERATOR documented as of this encounter Care Teams Aeronautical Drafter Relationship Specialty Start Date End Date Kami Edmond PA-C [address] [place] [address]. [place] [address] PCP - General PHYSICIAN STORE DETECTIVE 02/05/21 documented as of this encounter
--- OUTSIDE RECORDS SUMMARY | 2024-06-23 15:12 | XMS_ITS | Encounter Summary ---
Author Organization [facility] Address [address] [place] [address]. [place], [place] [address] [place] [address] Care Team Providers Care Exceptional Needs Teacher Name Role Phone Franny Dolan PA-C Primary Care Provider +1- [phone] Encounter Details Date Type Department Care Team (Latest Contact Info) Description 05/12/2021 Travel Social History Tobacco Use Types Packs/Day [...] COVID-19? No / Unsure 05/12/2021 9:12 AM INSURANCE RISK MANAGER documented as of this encounter Plan of Treatment Upcoming Encounters Date Type Department Care Team (Late st Contact Info) Description 11/07/2024 9:40 AM CDT Office Visit [facility] Family Medicine - [place] [address] [place] [phone] Franny Dolan PA-C [address] [place] [address] documented as of this encounter Visit Diagnoses Not on filedocumented in this encounter Additional Health Concerns Assessment Noted Time PHQ-9 Depression Total Score: 0 05/12/20 21 9:32 AM INSURANCE RISK MANAGER documented as of this encounter Care Teams Exceptional Needs Teacher Relationship Specialty Start Date End Date Franny Dolan PA-C [address] [place] [address] PCP - General PHYSICIAN BUSINESS OPERATIONS SPECIALIST 02/05/21 documented as of this encounter
--- OUTSIDE RECORDS SUMMARY | 2024-06-23 15:12 | XMS_ITS | Encounter Summary ---
Author Organization [facility] Address [address] [place] [address]. [place] [address] [place] [address] Care Team Providers Care Gardener Florist Name Role Phone Franny Dolan PA-C Primary Care Provider +1- [phone] Encounter Details Date Type Department Care Team (Late st Contact Info) Description 05/31/2021 - 05/31/2021 11:59 PM SANITARY PLUMBER Hospital Encounter [facility] [address] [facility] [place] [address] Franny Dolan PA-C [address] [facility] [place] [address] Discharge Disposition: Home or Self Care [...] COVID-19? No / Unsure 05/30/2021 2:23 PM SANITARY PLUMBER documented as of this encounter Medications at [...] 1 02/08/2021 2 CETIRIZINE 10 MG tabletIndications:Al ritu TAKE 1 TABLET DAILY 90 tablet 3 04/26/2021 2 clobetasol 0.05 % ointment Apply topically 2 (two) times daily. 2 DULOXETINE 60 MG capsuleIndications:A nxiety,Moderate episode of recurrent major depressive disorder ([facility]) TAKE 1 CAPSULE DAILY 90 capsule 3 04/08/2021 2 fenofibrate micronized 134 MG capsuleIndications:M ixed hyperlipidemia Take 1 capsule (134 mg total) by mouth daily. 90 capsule 1 05/12/2021 2 hydroCHLOROthiazide 12.5 MG capsule Take 12.5 mg by mouth daily. 2 METFORMIN 500 MG tabletIndications:Ty pe 2 diabetes mellitus without complication, without long-term current use of insulin ([facility]) TAKE 1 TABLET TWICE A DAY 180 [...] Description 11/07/2024 9:40 AM CDT Office Visit [facility] Family Medicine - [address] [address] Franny Dolan PA-C [address] [place] [address] documented as of this encounter Visit Diagnoses Not on filedocumented in this encounter Additional Health Concerns Infection Onset Date Last Indicated Resolved Time COVID-19 Rule Out 05/31/2021 05/31/2021 05/31/2021 11:28 AM SANITARY PLUMBER COVID-19 Rule Out 05/31/2021 05/31/2021 06/01/2021 11:59 PM SANITARY PLUMBER Assessment Noted Time PHQ-9 Depression Total Score: 0 05/12/20 9:32 AM SANITARY PLUMBER documented as of this encounter Care Teams Gardener Florist Relationship Specialty Start Date End Date Franny Dolan PA-C [address] [place] [address] PCP - General PHYSICIAN WORLD TRAVEL COUNSELOR 02/05/21 documented as of this encounter
--- OUTSIDE RECORDS SUMMARY | 2024-06-23 15:12 | XMS_ITS | Encounter Summary ---
Author Organization [facility] Address [address] [place] [address]. [place], [place] [address] [place] [address] Care Team Providers Care Tire Regrooving Machine Operator Name Role Phone Alex Browne MD Primary Care Provider Unav ailable Encounter Details Date Type Department Care Team (Latest Contact Info) Description 01/18/2021 Scan HEALTH INFO SRVCS Scanned, Documents Social [...] Description 11/07/2024 9:40 AM CDT Office Visit [facility] Family Medicine - [place] [address] [place] [address] Franny Dolan PA-C 100 [place] [address] documented as of this encounter Visit Diagnoses Not on filedocumented in this encounter Care Teams Tire Regrooving Machine Operator Relationship Specialty Start Date End Date Alex Browne MD PCP - General 08/29/14 02/04/21 documented as of this encounter
--- OUTSIDE RECORDS SUMMARY | 2024-06-23 15:12 | XMS_ITS | Encounter Summary ---
Author Organization [facility] Address [address] [place] [address]. [place] [address] [place] [address] Care Team Providers Care Assistant Store Manager Name Role Phone Franny Dolan PA-C Primary Care Provider +1- [phone] Reason for Visit * Reason Onset Date Comments Other 08/23/2022 Encounter Details Date Type Department Care Team (Late st Contact Info) Description 08/23/2022 Telephone [facility] Medical [facility] Family Medicine - [place] [address] [place] [address] Franny Dolan PA-C [address] [place] [address] Other Social History Tobacco Use Types Packs/Day Years [...] Coronavirus/COVID-19? No / Unsure 08/17/2022 10:34 AM OTOLARYNGOLOGY REP documented as of this encounter Plan of Treatment Upcoming Encounters Date Type Department Care Team (Late st Contact Info) Description 11/07/2024 9:40 AM CDT Office Visit [facility] Medical [facility] Family Medicine - [place] [address] [place] [address] Franny Dolan PA-C [address] [place] [address] documented as of this encounter Visit Diagnoses Not on filedocumented in this encounter Additional Health Concerns Assessment Noted Time PHQ-9 Depression Total Score: 13 023 8:53 AM OTOLARYNGOLOGY REP documented as of this encounter Care Teams Assistant Store Manager Relationship Specialty Start Date End Date Franny Dolan PA-C [address] [place] [address] PCP - General PHYSICIAN DUTY OFFICER 02/05/21 documented as of this encounter
--- OUTSIDE RECORDS SUMMARY | 2024-06-23 15:12 | XMS_ITS | Encounter Summary ---
Author Organization [facility] Address [address] [place] [address]. [place] [address] [place] [address] Care Team Providers Care Geospatial Specialist Name Role Phone Kami Edmond PA-C Primary Care Provider +1- [phone] Reason for Referral * Medication Prior Authorization - Closed Specialty Diagnoses / Procedures Referred By Michelle t Referred To Contact Diagnoses Acute vaginitis Kami Edmond PA-C [address] [place] [address] Phone: tel: fax: Referral ID Status Reason Start Date Expiration Date Visits Re quested Visits Authorized [id number] Closed 1 1 AND VENT AIRCRAFT MECHANIC Reason for Visit * Reason Comments Hypertension Pt present for hyper tension follow up. Encounter Details Date Type Department Care Team (Late st Contact Info) Description 05/30/2022 10:20 AM HEAT AND VENT AIRCRAFT MECHANIC Office Visit [facility] Medical Group Family Medicine - [place] [phone] Kami Edmond PA-C [address] [place] [address] Hypertension (Pt present for hypertension follow up.) Social History Tobacco Use Types Packs/Day Years [...] suspected to have Coronavirus/COVID-19? No / Unsure 05/30/2022 10:08 AM HEAT AND VENT AIRCRAFT MECHANIC documented as of this encounter Last Filed Vital Signs Vital Sign Reading Time Taken Comments Blood Pressure 150/80 05/30/2022 11:13 AM HEAT AND VENT AIRCRAFT MECHANIC Pulse 56 05/30/2022 10:33 AM HEAT AND VENT AIRCRAFT MECHANIC Temperature 36.4 ??C (97.5 ??F) 05/30/2022 10:[address] Respiratory Rate - - Oxygen Saturation 97% 05/30/2022 10:33 AM HEAT AND VENT AIRCRAFT MECHANIC Inhaled Oxygen Concentration - - Weight 126.1 kg (278 lb) 05/30/2022 10:33 AM HEAT AND VENT AIRCRAFT MECHANIC Height - - Body Mass Index 47.72 03/30/2022 10:42 AM CDT documented in this encounter Progress Notes * Kami Edmond PA-C - 05/30/2022 10:20 AM CST Reason for Visit: Hypertension (Pt present for hypertension follow up.) History of Present Illness: Patient here for follow up diabetes. Takes medications daily. Tries to follow low carb diet and exercise. Checks blood sugars daily. Fasting blood sugars usually around 180. Today HgbA1C was 7.8. Shehas problems tolerating metformin due to diarrhea when increased to 2 daily. She is going to start seeing Leandro Granados a psychologist for anxiety and depression. She has a yeast infection from her last antibiotics she was on. She still has right arm/hand numbness and was diagnosed with ulnar nerveproblems with a specialist. She can't tolerate the brace he gave her and she wishes to see a different specialist. ROS: Review of Systems Respiratory: Negative for shortness of breath. Cardiovascular: Negative for chest pain. Psychiatric/Behavioral: Positive for depression. Negative for self-injury and suicidal ideas. The patient is nervous/anxious. All other systems reviewed and are negative. Medications: Current Outpatient Medications: ??? acetaminophen CR 650 MG Tab CR 8 hr tablet, Take 650 mg by mouth., Disp: , Rfl: ??? azithromycin (ZITHROMAX) 250 MG tablet, Take 2 tablets by mouth on day one then 1 daily for four days., Disp: 6 tablet, Rfl: 0 ??? busPIRone (BUSPAR) 10 MG tablet, TAKE 1 TABLET(10 MG) BY MOUTH TWICE DAILY, Disp: 60 tablet, Rfl: 1 ??? cetirizine (ZYRTEC) 10 MG tablet, Take 1 tablet (10 mg total) by mouth daily., Disp: 90 tablet,Rfl: 3 ??? DULoxetine 60 MG capsule, Take 1 capsule (60 mg total) by mouth daily., Disp: 90 capsule, Rfl: 1 ??? fenofibrate micronized 134 MG capsule, Take 1 capsule (134 mg total) by mouth daily. with food., Disp: 90 capsule, Rfl: 3 ??? fluconazole (DIFLUCAN) 150 MG tablet, Take 1 tablet (150 mg total) by mouth once for 1 dose., Disp: 1 tablet, Rfl: 0 ??? fluticasone propionate 50 MCG/ACT nasal spray, 2 sprays by Nasal route daily., Disp: , Rfl: ??? glipiZIDE XL 10 MG 24 hr tablet, Take 1 tablet (10 mg total) by mouth 2 (two) times a day for 30 days. Do not break or crush tablet, Disp: 60 tablet, Rfl: 1 ??? glucosamine-chondroitin 500-400 mg Tab tablet, Take 1 tablet by mouth 3 (three) times daily., Disp: , Rfl: ??? hydroCHLOROthiazide (HYDRODIURIL) 25 MG tablet, Take 1 tablet (25 mg total) by mouth every morning., Disp: 30 tablet, Rfl: 5 ??? lisinopril (PRINIVIL) 10 MG tablet, Take [...] daily., Disp: 60 g, Rfl: 1 ??? SYNTHROID 100 MCG tablet, Take 1 tablet (100 mcg total) by mouth every morning., Disp: 90 tablet, Rfl: 1 ??? cyclobenzaprine 10 MG tablet, Take 10 mg by mouth., Disp: , Rfl: ??? docusate sodium 100 MG capsule, , Disp: , Rfl: Allergies Allergen Reactions [...] Cigarettes Quit date: 1997 Years since quittin.9 ??? Smokeless tobacco: Never Vaping Use ??? [...] and Affect: Mood is anxious. Filed Vitals: 05/30/22 1033 05/30/22 1113 BP: (!) 156/81 (!) 150/80 Pulse: 56 Temp: 97.5 ??F (36.4 ??C) TempSrc: Temporal SpO2: 97% Weight: 126.1 kg (278 lb) Results for orders placed or performed in visit on 05/30/22 A1C (BACK OFFICE) Result Value Ref Range HGB A1C 7.8 % Diagnoses/Impression: 1. Type 2 diabetes mellitus without complication, without long-term current use of insulin ([facility]) A1C (BACK OFFICE) metFORMIN ER (GLUCOPHAGE XR) 500 MG 24 hr tablet glipiZIDE XL 10 MG 24 hr tablet COMPREHENSIVE METABOLIC PANEL HEMOGLOBIN, GLYCOSYLATED 2. Essential hypertension lisinopril (PRINIVIL) 10 MG tablet COMPREHENSIVE METABOLIC PANEL 3. Mixed hyperlipidemia LIPID PANEL 4. Acquired hypothyroidism THYROID STIM HORMONE, TSH THYROXINE, FREE (FT4) 5. Acute vaginitis fluconazole (DIFLUCAN) 150 MG tablet 6. Yeast infection of the skin nystatin (MYCOSTATIN) powder Recommendations and Plan: Discussed A1c with patient. Continue same meds. Will add lisinopril 10 mg daily. She will decrease metfornin 500 mg once daily and increase glipizide 10 mg bid. Discussed low carb diet and exercise.She will follow up in 1 month for blood pressure check. She will call with the name of her ortho ifshe needs referral for them to see her for her ulnar nerve problems. She will follow up in 3 months with labs. Orders Placed This Encounter ??? A1C (BACK OFFICE) ??? COMPREHENSIVE METABOLIC PANEL ??? LIPID PANEL ??? THYROID STIM HORMONE, TSH ??? THYROXINE, FREE (FT4) ??? HEMOGLOBIN, GLYCOSYLATED ??? metFORMIN ER (GLUCOPHAGE XR) 500 MG 24 hr tablet ??? glipiZIDE XL 10 MG 24 hr tablet ??? lisinopril (PRINIVIL) 10 MG tablet ??? fluconazole (DIFLUCAN) 150 MG tablet ??? nystatin (MYCOSTATIN) powder Reviewed and updated this visit by provider: Tobacco Allergies Meds Problems Med Hx Surg Hx Fam Hx KAMI EDMOND PA-C Referring Provider: No ref. provider found PCP: KAMI EDMOND PA-C AND VENT AIRCRAFT MECHANIC documented in this encounter Plan of Treatment Upcoming Encounters Date Type Department Care Team (Late st Contact Info) Description 11/07/2024 9:40 AM CDT Office Visit [facility] Medical Group Family Medicine - [place] [phone] Kami Edmond PA-C [address] [place] [address]. [place] [address] Scheduled Orders Name Type Priority Associated Diagnoses Orde r Schedule COMPREHENSIVE METABOLIC PANEL Lab Routine Type 2 diabetes mellitus without complication, without long-term current use of insulin ([facility]) Essential hypertension Expected: 08/28/2022, Expires: 05/30/2023 LIPID PANEL Lab Routine Mixed hyperlipidemia Expected: 08/28/2022, Expires: 05/30/2023 THYROID STIM HORMONE, TSH Lab Routine Acquired hypothyroidism Expected: 08/28/2022, Expires: 05/30/2023 THYROXINE, FREE (FT4) Lab Routine Acquired hypothyroidism Expected: 08/28/2022, Expires: 05/30/2023 HEMOGLOBIN, GLYCOSYLATED Lab Routine Type 2 diabetes mellitus without complication, without long-term current use of insulin ([facility]) Expected: 08/28/2022, Expires: 05/30/2023 documented as of this encounter Procedures Procedure Name Priority Date/Time Associated Diagnosis Comments HEMOGLOBIN, GLYCOSYLATED Today 05/30/2022 10:53 AM HEAT AND VENT AIRCRAFT MECHANIC Type 2 diabetes mellitus without complication, without long-term current use of insulin ([facility]) documented in this encounter Results * A1C (BACK OFFICE) (05/30/2022 10:53 AM HEAT AND VENT AIRCRAFT MECHANIC) HGB A1C 7.8 % [id number] 05/30/2022 10:5 3 AM HEAT AND VENT AIRCRAFT MECHANIC us Kami Edmond PA-C LABORATORY Final Resu lt [id number] [address] [place] [address], [place] [phone] documented in this encounter Visit Diagnoses Diagnosis Type 2 diabetes mellitus without complication, without long-term current use of insulin ([facility])- Primary Essential hypertension Unspecified essential hypertension Mixed hyperlipidemia Acquired hypothyroidism Unspecified hypothyroidism Acute vaginitis Vaginitis and vulvovaginitis, unspecified Yeast infection of the skin Candidiasis of skin and nails documented in this encounter Additional Health Concerns Assessment Noted Time PHQ-9 Depression Total Score: 0 05/12/20 21 9:32 AM HEAT AND VENT AIRCRAFT MECHANIC documented as of this encounter Care Teams Geospatial Specialist Relationship Specialty Start Date End Date Kami Edmond PA-C [address] [place] [address] PCP - General PHYSICIAN STOCK SPECULATOR 02/05/21 documented as of this encounter
--- OUTSIDE RECORDS SUMMARY | 2024-06-23 15:12 | XMS_ITS | Encounter Summary ---
Author Organization [facility] Address [address] [place] [address]. [place], [place] [address] [place] [address] Care Team Providers Care Treating Inspector Name Role Phone Franny Dolan PA-C Primary Care Provider +1- [phone] Encounter Details Date Type Department Care Team (Latest Contact Info) Description 11/30/2021 Scan HEALTH INFO SRVCS Scanned, Documents Social [...] [facility] Family Medicine - [place] [address] [place] [phone] Franny Dolan PA-C [address] [place] [address] documented as of this encounter Visit Diagnoses Not on filedocumented in this encounter Additional Health Concerns Assessment Noted Time PHQ-9 Depression Total Score: 0 05/12/20 21 9:32 AM PAIRER ODDS documented as of this encounter Care Teams Treating Inspector Relationship Specialty Start Date End Date Franny Dolan PA-C [address] [place] [address] [place] [address] PCP - General PHYSICIAN GAS SPECIALIST 02/05/21 documented as of this encounter
--- OUTSIDE RECORDS SUMMARY | 2024-06-23 15:12 | XMS_ITS | Encounter Summary ---
Author Organization [facility] Address [address] [place] [address]. [place], [place] [address] [place] [address] Care Team Providers Care Business Resiliency Manager Name Role Phone Franny Dolan PA-C Primary Care Provider +1- [phone] Encounter Details Date Type Department Care Team (Latest Contact Info) Description 05/30/2022 Travel Social History Tobacco Use Types Packs/Day [...] Coronavirus/COVID-19? No / Unsure 05/30/2022 10:08 AM RECYCLING TECH documented as of this encounter Plan of Treatment Upcoming Encounters Date Type Department Care Team (Late st Contact Info) Description 11/07/2024 9:40 AM CDT Office Visit [facility] Family Medicine - [place] [address] [place] [phone] Franny Dolan PA-C [address] [place] [address] documented as of this encounter Visit Diagnoses Not on filedocumented in this encounter Additional Health Concerns Assessment Noted Time PHQ-9 Depression Total Score: 0 05/12/20 21 9:32 AM RECYCLING TECH documented as of this encounter Care Teams Business Resiliency Manager Relationship Specialty Start Date End Date Franny Dolan PA-C [address] [place] [address] PCP - General PHYSICIAN HARNESS AND BAG INSPECTOR 02/05/21 documented as of this encounter
--- OUTSIDE RECORDS SUMMARY | 2024-06-23 15:12 | XMS_ITS | Encounter Summary ---
Author Organization [facility] Address [address] [place] [address]. [place], [place] [address] [place] [address] Care Team Providers Care Public Opinion Survey Taker Name Role Phone Franny Dolan PA-C Primary Care Provider +1- [phone] Encounter Details Date Type Department Care Team (Latest Contact Info) Description 07/26/2022 Travel Social History Tobacco Use Types Packs/Day [...] suspected to have Coronavirus/COVID-19? No / Unsure 07/26/2022 8:38 AM FLORAL DESIGNER documented as of this encounter Plan of Treatment Upcoming Encounters Date Type Department Care Team (Late st Contact Info) Description 11/07/2024 9:40 AM CDT Office Visit [facility] Medical Group Family Medicine - [place] [address] [place] [phone] Franny Dolan PA-C [address] [place] [address] documented as of this encounter Visit Diagnoses Not on filedocumented in this encounter Additional Health Concerns Assessment Noted Time PHQ-9 Depression Total Score: 13 023 8:53 AM FLORAL DESIGNER documented as of this encounter Care Teams Public Opinion Survey Taker Relationship Specialty Start Date End Date Franny Dolan PA-C [address] [place] [address] PCP - General PHYSICIAN SERVICE TECH/WELDER 02/05/21 documented as of this encounter
--- OUTSIDE RECORDS SUMMARY | 2024-06-23 15:12 | XMS_ITS | Encounter Summary ---
Author Organization [facility] Address [address] [place] [address]. [place] [address] [place] [address] Care Team Providers Care Petroleum Sampler Name Role Phone Franny Dolan PA-C Primary Care Provider +1- [phone] Encounter Details Date Type Department Care Team (Latest Contact Info) Description 07/21/2021 Travel Social History Tobacco Use Types Packs/Day [...] or suspected to have Coronavirus / COVID-19? Yes 07/21/2021 8:50 AM KNUCKLE STRAP SEWER documented as of this encounter Plan of Treatment Upcoming Encounters Date Type Department Care Team (Late st Contact Info) Description 11/07/2024 9:40 AM CDT Office Visit [facility] Medical Group Family Medicine - [place] [address] [place] [phone] Franny Dolan PA-C [address] [place] [address] documented as of this encounter Visit Diagnoses Not on filedocumented in this encounter Additional Health Concerns Assessment Noted Time PHQ-9 Depression Total Score: 0 05/12/20 21 9:32 AM KNUCKLE STRAP SEWER documented as of this encounter Care Teams Petroleum Sampler Relationship Specialty Start Date End Date Franny Dolan PA-C [address] [place] [address] PCP - General PHYSICIAN OIL PIPELINE DISPATCHER 02/05/21 documented as of this encounter
--- OUTSIDE RECORDS SUMMARY | 2024-06-23 15:12 | XMS_ITS | Encounter Summary ---
Author Organization [facility] Address [address] [place] [address]. [place] [address] [place] [address] Care Team Providers Care Director Of Accounts Receivable Name Role Phone Franny Dolan PA-C Primary Care Provider +1- [phone] Encounter Details Date Type Department Care Team (Latest Contact Info) Description 02/08/2022 Scan HEALTH INFO SRVCS Scanned, Documents Social [...] Description 11/07/2024 9:40 AM CDT Office Visit [facility] Medical Group Family Medicine - [place] [address] [place] [phone] Franny Dolan PA-C 100 [place], [place] [phone] documented as of this encounter Visit Diagnoses Not on filedocumented in this encounter Additional Health Concerns Assessment Noted Time PHQ-9 Depression Total Score: 0 05/12/20 9:32 AM CORE BLOWER documented as of this encounter Care Teams Director Of Accounts Receivable Relationship Specialty Start Date End Date Franny Dolan PA-C [address] [place] [address] PCP - General PHYSICIAN WELLNESS INSTRUCTOR 02/05/21 documented as of this encounter
--- OUTSIDE RECORDS SUMMARY | 2024-06-23 15:12 | XMS_ITS | Encounter Summary ---
Author Organization [facility] Address [address] [place] [address]. [place] [address] [place] [address] Care Team Providers Care Patrol Lady Name Role Phone Franny Dolan PA-C Primary Care Provider +1- [phone] Reason for Visit * Reason Onset Date Comments Other 05/31/2021 Encounter Details Date Type Department Care Team (Late st Contact Info) Description 05/31/2021 Telephone [facility] Medical Group Family Medicine - [place] [address] [place] [phone] Franny Dolan PA-C [address] [place] [address] Other Social History Tobacco Use Types [...] COVID-19? No / Unsure 05/30/2021 2:23 PM PRIMARY CLINICIAN documented as of this encounter Progress Notes * Ann Armstrong MA - 05/31/2021 3:44 PM CST BHAVIN Todd said she sent all results to [facility] ARY CLINICIAN * Ann Armstrong MA - 05/31/2021 3:38 PM CST Called the office back to clarify what exactly they need and spoke with Florecita. Florecita informed me that they need CBC, CMP, UA and EKG results ARY CLINICIAN * Janeth Solorzano - 05/31/2021 2:12 PM CST [facility] is asking for labs for surgical clearance Office [phone] Fax [phone] ARY CLINICIAN documented in this encounter Plan of Treatment Upcoming Encounters Date Type Department Care Team (Late st Contact Info) Description 11/07/2024 9:40 AM CDT Office Visit [facility] Medical Group Family Medicine - [place] [phone] Franny Dolan PA-C [address] [place] [address] documented as of this encounter Visit Diagnoses Not on filedocumented in this encounter Additional Health Concerns Infection Onset Date Last Indicated Resolved Time COVID-19 Rule Out 05/31/2021 05/31/2021 05/31/2021 11:28 AM PRIMARY CLINICIAN COVID-19 Rule Out 05/31/2021 05/31/2021 06/01/2021 11:59 PM PRIMARY CLINICIAN Assessment Noted Time PHQ-9 Depression Total Score: 0 05/12/20 9:32 AM PRIMARY CLINICIAN documented as of this encounter Care Teams Patrol Lady Relationship Specialty Start Date End Date Franny Dolan PA-C [address] [place] [address] PCP - General PHYSICIAN HABILITATION ASSISTANT 02/05/21 documented as of this encounter
--- OUTSIDE RECORDS SUMMARY | 2024-06-23 15:12 | XMS_ITS | Encounter Summary ---
Author Organization [facility] Address [address] [place] [address]. [place], [place] [address] [place] [address] Care Team Providers Care Records Management Analyst Name Role Phone Franny Dolan PA-C Primary Care Provider +1- [phone] Encounter Details Date Type Department Care Team (Latest Contact Info) Description 06/11/2021 Scan HEALTH INFO SRVCS Scanned, Documents Social [...] COVID-19? No / Unsure 05/30/2021 2:23 PM ASSOCIATE PUBLISHER documented as of this encounter Plan of Treatment Upcoming Encounters Date Type Department Care Team (Late st Contact Info) Description 11/07/2024 9:40 AM CDT Office Visit [facility] Family Medicine - [place] [address] [place] [phone] Franny Dolan PA-C [address] [place] [address] documented as of this encounter Visit Diagnoses Not on filedocumented in this encounter Additional Health Concerns Assessment Noted Time PHQ-9 Depression Total Score: 0 05/12/20 21 9:32 AM ASSOCIATE PUBLISHER documented as of this encounter Care Teams Records Management Analyst Relationship Specialty Start Date End Date Franny Dolan PA-C [address] [place] [address] PCP - General PHYSICIAN PRODUCTION PLANNING MANAGER 02/05/21 documented as of this encounter
--- OUTSIDE RECORDS SUMMARY | 2024-06-23 15:12 | XMS_ITS | Encounter Summary ---
Author Organization [facility] Address [address] [place] [address]. [place] [address] [place] [address] Care Team Providers Care Copying Machine Mechanic Name Role Phone Alex Browne MD Primary Care Provider Unav ailable Reason for Visit * Reason Comments Lab (SCAN) Encounter Details Date Type Department Care Team (Latest Contact Info) Description 12/24/2020 Scan [facility] HEALTH INFO SRVCS Scanned, Documents Lab (SCAN) Social History Tobacco Use Types Packs/Day [...] [facility] Family Medicine - [place] [address] [place] [address] Franny Dolan PA-C [address] [place] [address] documented as of this encounter Procedures Procedure Name Priority Date/Time Associated Diagnosis Comments OUTSIDE LAB (SCAN ORDER) Routine 12/24/2020 documented in this encounter Results * OUTSIDE LAB (SCAN) (12/24/2020) HGB A1C 7.2 % [facility] 12/24/2020 us Documents Scanned SCANNING Final Result [facility] documented in this encounter Visit Diagnoses Not on filedocumented in this encounter Care Teams Copying Machine Mechanic Relationship Specialty Start Date End Date Alex Browne MD PCP - General 08/29/14 02/04/21 documented as of this encounter
--- OUTSIDE RECORDS SUMMARY | 2024-06-23 15:12 | XMS_ITS | Encounter Summary ---
Author Organization [facility] Address [address] [place] [address]. [place], [place] [address] [place] [address] Care Team Providers Care Manager Transit Name Role Phone Franny Dolan PA-C Primary Care Provider +1- [phone] Encounter Details Date Type Department Care Team (Latest Contact Info) Description 02/19/2022 Scan MG HEALTH INFO SRVCS Scanned, Doc [...] 11/07/2024 9:40 AM CDT Office Visit [facility] Family Medicine - [place] [address] [place] [phone] Franny Dolan PA-C [address] [place] [address] documented as of this encounter Visit Diagnoses Not on filedocumented in this encounter Additional Health Concerns Assessment Noted Time PHQ-9 Depression Total Score: 0 05/12/20 21 9:32 AM SET OFF BLOCKER documented as of this encounter Care Teams Manager Transit Relationship Specialty Start Date End Date Franny Dolan PA-C [address] [place] [address] [place] [address] PCP - General PHYSICIAN BRIMMER BLOCKER 02/05/21 documented as of this encounter
--- OUTSIDE RECORDS SUMMARY | 2024-06-23 15:12 | XMS_ITS | Encounter Summary ---
Author Organization [facility] Address [address] [place] [address]. [place], [place] [address] [place] [address] Care Team Providers Care Stained Glass Joiner Name Role Phone Franny Dolan PA-C Primary Care Provider +1- [phone] Encounter Details Date Type Department Care Team (Latest Contact Info) Description 08/30/2021 Travel Social History Tobacco Use Types Packs/Day [...] Coronavirus/COVID-19? No / Unsure 08/30/2021 9:31 AM DOG DAYCARE PROVIDER documented as of this encounter Plan of Treatment Upcoming Encounters Date Type Department Care Team (Late st Contact Info) Description 11/07/2024 9:40 AM CDT Office Visit [facility] Family Medicine - [place] [address] [place] [phone] Franny Dolan PA-C [address] [place] [address] documented as of this encounter Visit Diagnoses Not on filedocumented in this encounter Additional Health Concerns Assessment Noted Time PHQ-9 Depression Total Score: 0 05/12/20 21 9:32 AM DOG DAYCARE PROVIDER documented as of this encounter Care Teams Stained Glass Joiner Relationship Specialty Start Date End Date Franny Dolan PA-C [address] [place] [address] PCP - General PHYSICIAN FOOD DEHYDRATOR OPERATOR 02/05/21 documented as of this encounter
--- OUTSIDE RECORDS SUMMARY | 2024-06-23 15:12 | XMS_ITS | Encounter Summary ---
Author Organization [facility] Address [address] [place] [address]. [place] [address] [place] [address] Care Team Providers Care Nurse Anesthetist Name Role Phone Franny Dolan PA-C Primary Care Provider +1- [phone] Reason for Visit * Reason Onset Date Comments Medication Request 04/26/2022 Encounter Details Date Type Department Care Team (Late st Contact Info) Description 04/26/2022 Telephone [facility] Family Medicine - [place] [address] [place] [address] Franny Dolan PA-C [address] [place] [address] Medication Request Social History Tobacco [...] AM CDT documented as of this encounter Progress Notes * Ann Armstrong MA - 04/27/2022 8:53 AM CDT Franny sent Payam wray and naida igl to the pharmacy for patient/patient was informed and advisedto make an apt if she's no better after taking medications * Ann Armstrong MA - 04/26/2022 5:12 PM CDT Spoke with patient and she said her symptoms mainly consist of cough and runny nose but it's been going on for about 5 days Covid test negative She uses [facility] In [place] * Franny Dolan PA-C - 04/26/2022 5:09 PM CDT Please find out more specifics on symptoms? * Ann Armstrong MA - 04/26/2022 1:36 PM CDT Please advise * Janeth Solorzano - 04/26/2022 1:14 PM CDT Pt is asking if you can call in something for symptoms of persisent cough and running. Pt has had that for about 5 days. covid test was negative. brenda In max Pt [phone] Home [phone] documented in this encounter Plan of Treatment Upcoming Encounters Date Type Department Care Team (Late st Contact Info) Description 11/07/2024 9:40 AM CDT Office Visit [facility] Medical Group Family Medicine - [place] [phone] Franny Dolan PA-C [address] [place] [address] documented as of this encounter Visit Diagnoses Diagnosis Acute cough- Primary Acute non-recurrent maxillary sinusitis documented in this encounter Additional Health Concerns Assessment Noted Time PHQ-9 Depression Total Score: 0 05/12/20 21 9:32 AM CANDY SUPERVISOR documented as of this encounter Care Teams Nurse Anesthetist Relationship Specialty Start Date End Date Franny Dolan PA-C [address] [place] [address] PCP - General PHYSICIAN HOME ATTENDANT 02/05/21 documented as of this encounter
--- OUTSIDE RECORDS SUMMARY | 2024-06-23 15:12 | XMS_ITS | Encounter Summary ---
Author Organization [facility] Address [address] [place] [address]. [place] [address] [place] [address] Care Team Providers Care Manufacturing Controller Name Role Phone Alex Browne MD Primary Care Provider Franny Bellamy PA-C Primary Care Provider +1- [phone] Encounter Details Date Type Department Care Team (Late st Contact Info) Description 02/01/2021 Orders Only [facility] Medical [facility] Family Medicine - [place] [phone] Adore Samayoa MA Social History Tobacco Use Types Packs/Day Years Used Date Smoking Tobacco: Never Assessed PHQ-2 Answer Date Recorded PHQ-2 Score - If the patient scores above 3, please move on to questions 3-9 4 02/09/2021 Comments Unknown Sex and Gender Information Value Date Recorded Sex Assigned at Not on file Legal Sex Female 6:13 PM CDT Gender Identity Not on file Sexual Orientation Not on file documented as of this encounter Progress Notes * Ely Sexton MA - 02/08/2021 12:32 PM CDT Please approve or deny * Adore Samayoa MA - 02/05/2021 12:30 PM CDT I looked in paper chart and it looks like she goes to [facility] off of [address] * Adore Samayoa MA - 02/04/2021 9:39 AM CDT Lmovm to call office with pharmacy info * Ann Armstrong MA - 02/03/2021 12:34 PM CDT LMOM asking which pharmacy she uses documented in this encounter Plan of Treatment Upcoming Encounters Date Type Department Care Team (Late st Contact Info) Description 11/07/2024 9:40 AM CDT Office Visit [facility] Medical Group Family Medicine - [address] [phone] Franny Dolan PA-C [address] [place] [address] documented as of this encounter Visit Diagnoses Diagnosis Anxiety- Primary Anxiety state, unspecified documented in this encounter Care Teams Manufacturing Controller Relationship Specialty Start Date End Date Alex Browne MD PCP - General 08/29/14 02/04/21 Franny Dolan PA-C [address] [place] [address] PCP - General PHYSICIAN GEOSCIENCE TECHNICIAN 02/05/21 documented as of this encounter
--- OUTSIDE RECORDS SUMMARY | 2024-06-23 15:12 | XMS_ITS | Encounter Summary ---
Author Organization [facility] Address [address] [place] [address]. [place], [place] [address] [place] [address] Care Team Providers Care Community Center Coordinator Name Role Phone Franny Dolan PA-C Primary Care Provider +1- [phone] Encounter Details Date Type Department Care Team (Latest Contact Info) Description 03/30/2022 Travel Social History Tobacco Use Types Packs/Day [...] [facility] Family Medicine - [place] [address] [place] [phone] Franny Dolan PA-C [address] [place] [address] documented as of this encounter Visit Diagnoses Not on filedocumented in this encounter Additional Health Concerns Assessment Noted Time PHQ-9 Depression Total Score: 0 05/12/20 21 9:32 AM ALUMINUM BOATS ASSEMBLER documented as of this encounter Care Teams Community Center Coordinator Relationship Specialty Start Date End Date Franny Dolan PA-C [address] [place] [address] PCP - General PHYSICIAN COUNTY HISTORIAN 02/05/21 documented as of this encounter
--- OUTSIDE RECORDS SUMMARY | 2024-06-23 15:12 | XMS_ITS | Encounter Summary ---
Author Organization [facility] Address [address] [place] [address]. [place] [address] [place] [address] Care Team Providers Care Blanking Press Operator Name Role Phone Franny Dolan PA-C Primary Care Provider +1- [phone] Reason for Visit * Reason Comments Dilated Eye Exam (SCAN) Encounter Details Date Type Department Care Team (Late Contact Info) Description 11/28/2021 Scan HEALTH INFO SRVCS Scanned, Documents Dilated Eye Exam (SCAN) Social History Tobacco [...] [facility] Family [facility] - [place] [address] [place] [phone] Franny Dolan PA-C 100 [place] [address] documented as of this encounter Procedures Procedure Name Priority Date/Time Associated Diagnosis Comments DIABETIC RETINOPATHY EXAM (NEGATIVE)(SCAN ORDER) Routine 11/28/2021 documented in this encounter Results * DIABETIC RETINOPATHY EXAM (NEGATIVE)(SCAN) (11/28/2021) us Documents Scanned SCANNING Final Result [facility] documented in this encounter Visit Diagnoses Not on filedocumented in this encounter Additional Health Concerns Assessment Noted Time PHQ-9 Depression Total Score: 0 05/12/20 21 9:32 AM APPLICATIONS SYSTEM ANALYST documented as of this encounter Care Teams Blanking Press Operator Relationship Specialty Start Date End Date Franny Dolan PA-C [address] [place] [address] PCP - General PHYSICIAN POT FLUXER 02/05/21 documented as of this encounter
--- OUTSIDE RECORDS SUMMARY | 2024-06-23 15:12 | XMS_ITS | Encounter Summary ---
Author Organization [facility] Address [address] [place] [address]. [place] [address] [place] [address] Care Team Providers Care Barrel Washer Machine Name Role Phone Kami Edmond PA-C Primary Care Provider +1- [phone] Reason for Visit * Reason Comments Follow Up - Diabetes Encounter Details Date Type Department Care Team (Late st Contact Info) Description 03/30/2022 10:40 AM CDT [facility] Family Medicine - [place] [address] [place] [phone] Kami Edmond PA-C [address] [place] [address] Follow Up - Diabetes Social History Tobacco Use Types Packs/Day [...] Sign Reading Time Taken Comments Blood Pressure 156/80 03/30/2022 11:12 AM CDT Pulse 64 03/30/2022 10:42 AM CDT Temperature 35.6 ??C (96.1 ??F) 03/30/2022 10:42 AM C DT Respiratory Rate 18 03/30/2022 10:42 AM CDT Oxygen Saturation 96% 03/30/2022 10:42 AM CDT Inhaled Oxygen Concentration - - Weight 123.8 kg (273 lb) 03/30/2022 10:42 AM CDT Height 162.6 cm (5' 4 ) 03/30/2022 10:42 AM CDT Body Mass Index 46.86 03/30/2022 10:42 AM CDT documented in this encounter Progress Notes * Kami Edmond PA-C - 03/30/2022 10:40 AM CDT Reason for Visit: Follow Up - Diabetes History of Present Illness: Patient here for follow up depression/anxiety. Takes medication daily without side effects. Feels medication is helping the depression and anxiety. Denies any crying episodes, depressive mood, anxiety or suicide thoughts on the medication. Sleeps and eats well. Her blood sugars fasting on her log are still running 150- 200 most days. She does have lots of diarrhea on the metformin. She has been try ing to watch her diet more. ROS: Review of Systems Respiratory: Negative for shortness of breath. Cardiovascular: Negative for chest pain. Gastrointestinal: Positive for diarrhea. Psychiatric/Behavioral: Negative for self-injury and suicidal ideas. All other systems reviewed and are negative. Medications: Current Outpatient Medications: ??? acetaminophen CR 650 MG Tab CR 8 hr tablet, Take 650 mg by mouth., Disp: , Rfl: ??? busPIRone (BUSPAR) 10 MG tablet, Take 1 tablet (10 mg total) by mouth 2 (two) times daily., Disp: 60 tablet, Rfl: 0 ??? cetirizine (ZYRTEC) 10 MG tablet, Take 1 tablet (10 mg total) by mouth daily., Disp: 90 tablet,Rfl: 3 ??? cyclobenzaprine 10 MG tablet, Take 10 mg by mouth., Disp: , Rfl: ??? docusate sodium 100 MG capsule, , Disp: , Rfl: ??? DULoxetine 60 MG capsule, Take 1 capsule (60 mg total) by mouth daily., Disp: 90 capsule, Rfl: 1 ??? fenofibrate micronized 134 MG capsule, Take 1 capsule (134 mg total) by mouth daily. with food., Disp: 90 capsule, Rfl: 3 ??? fluticasone propionate 50 MCG/ACT nasal spray, 2 sprays by Nasal route daily., Disp: , Rfl: ??? glipiZIDE XL (GLIPIZIDE XL) 10 MG 24 hr tablet, Take 1 tablet (10 mg total) by mouth daily withbreakfast. Do not break or crush tablet, Disp: 30 tablet, Rfl: 5 ??? glucosamine-chondroitin 500-400 mg Tab tablet, Take 1 tablet by mouth 3 (three) times daily., Disp: , Rfl: ??? hydroCHLOROthiazide (HYDRODIURIL) 25 MG tablet, Take 1 tablet (25 mg total) by mouth every morning., Disp: 30 tablet, Rfl: 5 ??? metFORMIN ER (GLUCOPHAGE XR) 500 MG 24 hr tablet, Take 2 tablets (1,000 mg total) by mouth daily with breakfast., Disp: 30 tablet, Rfl: 5 ??? Multiple Vitamin (MULTIVITAMIN) capsule, Take 1 capsule by mouth daily., Disp: , Rfl: ??? SYNTHROID 100 MCG tablet, Take 1 tablet (100 mcg total) by mouth every morning., Disp: 90 tablet, Rfl: 1 Allergies Allergen Reactions ??? Pollen Extract Runny Nose ??? Bee Pollen Runny Nose Tree pollen ??? Dust Mite Extract Runny Nose ? ? Molds & Smuts Runny Nose History reviewed. No pertinent past medical history. History reviewed. No pertinent surgical history. Social History Socioeconomic History ??? Marital status: Tobacco Use ??? Smoking status: Former Smoker Quit date: 1997 Years since quittin.7 ??? Smokeless tobacco: Never Used Vaping Use [...] and Affect: Mood is anxious. Filed Vitals: 03/30/22 1042 03/30/22 1112 BP: (!) 152/94 (!) 156/80 Pulse: 64 Resp: 18 Temp: 96.1 ??F (35.6 ??C) TempSrc: Temporal SpO2: 96% Weight: 123.8 kg (273 lb) Height: 5' 4 (1.626 m) Diagnoses/Impression: 1. Essential hypertension hydroCHLOROthiazide (HYDRODIURIL) 25 MG tablet 2. Moderate episode of recurrent major depressive disorder (CMS/HCC) 3. Generalized anxiety disorder 4. Type 2 diabetes mellitus without complication, without long-term current use of insulin (CMS/HCC) metFORMIN ER (GLUCOPHAGE XR) 500 MG 24 hr tablet glipiZIDE XL (GLIPIZIDE XL) 10 MG 24 hr tablet Recommendations and Plan: Reviewed her blood sugar log and she is still high. Will change metformin to XR hoping to help the diarrhea. She will increase glipizide XL 10 mg daily. She will continue to improve her low carb diet. She will increase HCTZ 25mg daily. She will continue same medications. She will follow up in 1-2 months. Orders Placed This Encounter ??? metFORMIN ER (GLUCOPHAGE XR) 500 MG 24 hr tablet ??? glipiZIDE XL (GLIPIZIDE XL) 10 MG 24 hr tablet ??? hydroCHLOROthiazide (HYDRODIURIL) 25 MG tablet Reviewed and updated this visit by provider: KAMI EDMOND PA-C Referring Provider: No ref. provider found PCP: KAMI EDMOND PA-C documented in this encounter Plan of Treatment Upcoming Encounters Date Type Department Care Team (Late st Contact Info) Description 11/07/2024 9:40 AM CDT [facility] Family [facility] - [place] [phone] Kami Edmond PA-C [address] [place] [address] documented as of this encounter Visit Diagnoses Diagnosis Essential hypertension- Primary Unspecified essential hypertension Moderate episode of recurrent major depressive disorder ([facility] HHS/HCC) Generalized anxiety disorder Type 2 diabetes mellitus without complication, without long-term current use of insulin ([facility] HHS/HCC) documented in this encounter Additional Health Concerns Assessment Noted Time PHQ-9 Depression Total Score: 0 05/12/20 9:32 AM COMMUNICATION COORDINATOR documented as of this encounter Care Teams Barrel Washer Machine Relationship Specialty Start Date End Date Kami Edmond PA-C [address] [place] [address] PCP - General PHYSICIAN PULP AND PAPER TESTER 02/05/21 documented as of this encounter
--- OUTSIDE RECORDS SUMMARY | 2024-06-23 15:12 | XMS_ITS | Encounter Summary ---
Author Organization [facility] Address [address] [place] [address]. [place] [address] [place] [address] Care Team Providers Care Precision Machining Instructor Name Role Phone Franny Dolan PA-C Primary Care Provider +1- [phone] Encounter Details Date Type Department Care Team (Latest Contact Info) Description 09/09/2022 Scan MG HEALTH INFO SRVCS Scanned, Doc [...] Coronavirus/COVID-19? No / Unsure 08/17/2022 10:34 AM WASTE DISPOSAL PLANT OPERATOR documented as of this encounter Plan of Treatment Upcoming Encounters Date Type Department Care Team (Late st Contact Info) Description 11/07/2024 9:40 AM CDT Office Visit [facility] Group Family Medicine - [place] [address] [place] [phone] Franny Dolan PA-C [address] [place] [address] documented as of this encounter Visit Diagnoses Not on filedocumented in this encounter Additional Health Concerns Assessment Noted Time PHQ-9 Depression Total Score: 13 023 8:53 AM WASTE DISPOSAL PLANT OPERATOR documented as of this encounter Care Teams Precision Machining Instructor Relationship Specialty Start Date End Date Franny Dolan PA-C [address] [place] [address] PCP - General PHYSICIAN QUILLER MACHINE FIXER 02/05/21 documented as of this encounter
--- OUTSIDE RECORDS SUMMARY | 2024-06-23 15:12 | XMS_ITS | Encounter Summary ---
Author Organization [facility] Address [address] [place] [address]. [place] [address] [place] [address] Care Team Providers Care Carpenter Supervisor Name Role Phone Kami Edmond PA-C Primary Care Provider +1- [phone] Reason for Visit * Reason Comments Pre-Op Exam cervical spine surge ry on June 03 Encounter Details Date Type Department Care Team (Late st Contact Info) Description 05/12/2021 9:20 AM WAX CUTTER Office Visit [facility] Family Medicine - [place] [phone] Kami Edmond PA-C [address] [place] [address] Pre-Op Exam (cervical spine surgery on June 03) Social History Tobacco Use Types Packs/Day Years [...] COVID-19? No / Unsure 05/12/2021 9:12 AM WAX CUTTER documented as of this encounter Last Filed Vital Signs Vital Sign Reading Time Taken Comments Blood Pressure 132/86 05/12/2021 9:32 AM WAX CUTTER Pulse 57 05/12/2021 9:32 AM WAX CUTTER Temperature 36.2 ??C (97.1 ??F) 05/12/2021 9:32 AM CS T Respiratory Rate 20 05/12/2021 9:32 AM WAX CUTTER Oxygen Saturation 97% 05/12/2021 9:32 AM WAX CUTTER Inhaled Oxygen Concentration - - Weight 124.7 kg (275 lb) 05/12/2021 9:32 AM WAX CUTTER Height 162.6 cm (5' 4 ) 05/12/2021 9:32 AM WAX CUTTER Body Mass Index 47.2 05/12/2021 9:32 AM WAX CUTTER documented in this encounter Progress Notes * Kami Edmond PA-C - 05/12/2021 9:20 AM CST Reason for Visit: Pre-Op Exam (cervical spine surgery on June 03) History of Present Illness: Patient here for preop clearance for ACDF C4-7 at [facility] with Dr. Hunter on June 03, 2021. She has had neck pain for several months and it causes right arm numbness. She denies chest pain, dizziness and shortness of breath. She is a nonsmoker. She doesn't see cardiology for any cardiacdiagnosis. She has no history of heart or lung problems. ROS: Review of Systems Respiratory: Negative for shortness of breath. Cardiovascular: Negative for chest pain. Musculoskeletal: Positive for neck pain. Psychiatric/Behavioral: Negative for suicidal ideas. All other systems reviewed and are negative. Medications: Current Outpatient Medications: ??? acetaminophen CR 650 MG Tab CR 8 hr tablet, Take 650 mg by mouth., Disp: , Rfl: ??? busPIRone 7.5 MG tablet, Take 1 tablet (7.5 mg total) by mouth 2 (two) times daily., Disp: 180 tablet, Rfl: 1 ??? CETIRIZINE 10 MG tablet, TAKE 1 TABLET DAILY, Disp: 90 tablet, Rfl: 3 ??? clobetasol 0.05 % ointment, Apply topically 2 (two) times daily., Disp: , Rfl: ??? DULOXETINE 60 MG [...] A DAY, Disp: 180 tablet, Rfl: 0 ??? Multiple Vitamin (MULTIVITAMIN) capsule, Take 1 [...] morning., Disp: 90 tablet, Rfl: 1 ??? aspirin EC (ASPIRIN EC) 81 MG tablet, Take 81 mg by mouth daily., Disp: , Rfl: Allergies Allergen Reactions ??? [...] Former Smoker Quit date: 1997 Years since quittin.8 ??? Smokeless tobacco: Never Used Vaping Use [...] Vitals reviewed. Constitutional: Appearance: Normal appearance. HENT: Right Ear: Tympanic membrane normal. Left Ear: Tympanic membrane normal. Nose: Nose normal. Mouth/Throat: Oropharynx is clear and moist and mucous membranes are normal. No posterior oropharyngeal edema or posterior oropharyngeal erythema. Neck: Thyroid: No thyromegaly. Cardiovascular: Rate and Rhythm: Normal rate and regular rhythm. Pulmonary: Effort: Pulmonary effort is normal. Breath sounds: Normal breath sounds. Abdominal: General: Bowel sounds are normal. Palpations: Abdomen is soft. Tenderness: There is no abdominal tenderness. Musculoskeletal: Right lower leg: No edema. Left lower leg: No edema. Skin: General: Skin is warm and dry. Findings: No rash. Neurological: Mental Status: She is alert. Psychiatric: Mood and Affect: Mood normal. Filed Vitals: 05/12/21 0932 BP: 132/86 Pulse: 57 Resp: 20 Temp: 97.1 ??F (36.2 ??C) TempSrc: Oral SpO2: 97% Weight: 124.7 kg (275 lb) Height: 5' 4 (1.626 m) PainSc: 0 (0-10 Scale) Diagnoses/Impression: 1. Hypothyroidism, unspecified type SYNTHROID 100 MCG tablet 2. Mixed hyperlipidemia fenofibrate micronized 134 MG capsule 3. Preop examination URINALYSIS CBC W/DIFF AUTOMATED ECG 12 lead (Hosp Performed) Recommendations and Plan: She will have her UA, labs, and EKG done for preop clearance. She will reschedule her regular follow up apt. Orders Placed This Encounter ??? URINALYSIS ??? CBC W/DIFF AUTOMATED ??? fenofibrate micronized 134 MG capsule ??? SYNTHROID 100 MCG tablet ??? ECG 12 lead (Hosp Performed) Reviewed and updated this visit by provider: Tobacco Allergies Meds Problems Med Hx Surg Hx Fam Hx KAMI EDMOND PA-C Referring Provider: No ref. provider found PCP: KAMI EDMOND PA-C CUTTER documented in this encounter Plan of Treatment Upcoming Encounters Date Type Department Care Team (Late st Contact Info) Description 11/07/2024 9:40 AM CDT Office Visit [facility] Family Medicine - [address] [phone] Kami Edmond PA-C [address] [place] [phone] Scheduled Orders Name Type Priority Associated Diagnoses Orde r Schedule ECG 12 lead (Hosp Performed) EKG-NonRad Routine Preop examination Expected: 05/12/2021, Expires: 05/12/2022 documented as of this encounter Procedures Procedure Name Priority Date/Time Associated Diagnosis Comments URINALYSIS Routine 05/13/2021 12:32 PM WAX CUTTER Preop examination CBC W/DIFF AUTOMATED Routine 05/13/2021 12:32 PM WAX CUTTER documented in this encounter Results * (ABNORMAL) CBC W/DIFF AUTOMATED (05/13/2021 12:32 PM WAX CUTTER) WBC 5.9 3.8 - 10.8 Thousand/u L [facility] RBC 5.38(H) 3.80 - 5.10 Million/uL [facility] HGB 15.7(H) 11.7 - 15.5 g/dL [facility] HCT 48.6(H) 35.0 - 45.0 % [facility] MCV 90.3 80.0 - 100.0 fL [facility] MCH 29.2 27.0 - 33.0 pg [facility] MCHC 32.3 32.0 - 36.0 g/dL [facility] RDW 12.9 11.0 - 15.0 % [facility] PLT 259 140 - 400 Thousand/u L [facility] MPV 10.7 7.5 - 12.5 fL [facility] ABS. NEUTROPHILS 4,095 1,500 - 7,800 cells/uL [facility] ABS. LYMPHOCYTES 1,298 850 - 3,900 cells/uL [facility] ABS. MONOCYTES 419 200 - 950 cells/uL [facility] ABS. EOSINOPHILS 59 15 - 500 cells/uL [facility] ABS. BASOPHILS 30 0 - 200 cells/uL [facility] SEG NEUTROPHILS 69.4 % [facility] LYMPHOCYTES 22.0 % [facility] MONOCYTES 7.1 % [facility] EOSINOPHILS 1.0 % [facility] BASOPHILS 0.5 % [facility] 05/13/2021 12:3 2 PM WAX CUTTER 05/13/2021 12:33 PM WAX CUTTER us Kami Edmond PA-C LABORATORY Final Resu lt [facility] [address] [place] [address] * URINALYSIS (05/13/2021 12:32 PM WAX CUTTER) COLOR (U) YELLOW YELLOW [facility] APPEARANCE SEMEN CLEAR CLEAR [facility] SPECIFIC GRAVITY (U) 1.006 1.001 - 1.035 [facility] PH (U) 6.0 5.0 - 8.0 [facility] URINE GLUCOSE NEGATIVE NEGATIVE [facility] KETONE (U) NEGATIVE NEGATIVE [facility] BLOOD (U) NEGATIVE NEGATIVE [facility] PROTEIN (U) NEGATIVE NEGATIVE [facility] URINE SPECIMEN OBTAINED BY CLEAN CATCH PROCEDURE / Unknown 05/13/2021 12:32 PM WAX CUTTER 05/13/2021 12:33 PM WAX CUTTER us Kami Edmond PA-C URINE ORDERABLES Final Res ult [facility] [address] [address] [address] documented in this encounter Visit Diagnoses Diagnosis Hypothyroidism, unspecified type- Primary Mixed hyperlipidemia Preop examination Preoperative examination, unspecified documented in this encounter Additional Health Concerns Assessment Noted Time PHQ-9 Depression Total Score: 0 05/12/20 21 9:32 AM WAX CUTTER documented as of this encounter Care Teams Carpenter Supervisor Relationship Specialty Start Date End Date Kami Edmond PA-C [address] [place] [address] PCP - General PHYSICIAN ASSEMBLIES AND INSTALLATIONS INSPECTOR 02/05/21 documented as of this encounter
--- OUTSIDE RECORDS SUMMARY | 2024-06-23 15:12 | XMS_ITS | Encounter Summary ---
Author Organization [facility] Address [address] [place] [address]. [place], [place] [address] [place] [address] Care Team Providers Care Technical Marketing Engineer Name Role Phone Franny Dolan PA-C Primary Care Provider +1- [phone] Encounter Details Date Type Department Care Team (Latest Contact Info) Description 04/10/2022 Scan HEALTH INFO SRVCS Scanned, Doc Med [...] OF [facility] Family Medicine - [place] [address] [place] [phone] Franny Dolan PA-C [address] [place] [address] documented as of this encounter Visit Diagnoses Not on filedocumented in this encounter Additional Health Concerns Assessment Noted Time PHQ-9 Depression Total Score: 0 05/12/20 21 9:32 AM DENTAL INSURANCE BILLER documented as of this encounter Care Teams Technical Marketing Engineer Relationship Specialty Start Date End Date Franny Dolan PA-C [address] [place] [address] [place] [address] PCP - General PHYSICIAN TRACK LAYING SUPERVISOR 02/05/21 documented as of this encounter
--- OUTSIDE RECORDS SUMMARY | 2024-06-23 15:12 | XMS_ITS | Encounter Summary ---
Author Organization [facility] Address [address] [place] [address]. [place] [address] [place] [address] Care Team Providers Care Tent Worker Name Role Phone Kami Edmond PA-C Primary Care Provider +1- [phone] Reason for Visit * Reason Comments Follow Up 3 month follow up Encounter Details Date Type Department Care Team (Late st Contact Info) Description 03/02/2022 9:40 AM CDT Office Visit [facility] Family Medicine - [place] [phone] Kami Edmond PA-C [address] [place] [phone] Follow Up (3 month follow up/) Social History Tobacco Use Types Packs/Day Years [...] Sign Reading Time Taken Comments Blood Pressure 129/77 03/02/2022 9:53 AM CDT Pulse 63 03/02/2022 9:53 AM CDT Temperature 36.3 ??C (97.3 ??F) 03/02/2022 9:53 AM CD T Respiratory Rate - - Oxygen Saturation 97% 03/02/2022 9:53 AM CDT Inhaled Oxygen Concentration - - Weight 125.6 kg (276 lb 12.8 oz) 03/02/2022 9:53 AM CDT Height 162.6 cm (5' 4 ) 03/02/2022 9:53 AM CDT Body Mass Index 47.51 03/02/2022 9:53 AM CDT documented in this encounter Progress Notes * Kami Edmond PA-C - 03/02/2022 9:40 AM CDT Reason for Visit: Follow Up (3 month follow up/) History of Present Illness: Patient here for follow up diabetes. Takes medications daily. Tries to follow low carb diet, but she has been stress eating. Her HgbA1C was 10.4 today. Last eye exam was less than a year ago. She hasbeen more overwhelmed and anxious the last few weeks. She denies crying and suicide thouhgts. She lacks some motivation. ROS: Review of Systems Respiratory: Negative for [...] , Rfl: ??? glipiZIDE XL (GLIPIZIDE XL) 5 MG 24 hr tablet, Take 1 tablet (5 mg total) by mouth daily with breakfast. Do not break or crush tablet, Disp: 90 tablet, Rfl: 1 ??? glucosamine-chondroitin 500-400 mg [...] Former Smoker Quit date: 1997 Years since quittin.6 ??? Smokeless tobacco: Never Used Vaping Use [...] and Affect: Mood is anxious. Filed Vitals: 03/02/22 0953 BP: 129/77 Pulse: 63 Temp: 97.3 ??F (36.3 ??C) TempSrc: Temporal SpO2: 97% Weight: 125.6 kg (276 lb 12.8 oz) Height: 5' 4 (1.626 m) Diagnoses/Impression: 1. Essential hypertension 2. Type 2 diabetes mellitus without complication, without long-term current use of insulin ([facility]) A1C (BACK OFFICE) glipiZIDE XL (GLIPIZIDE XL) 5 MG 24 hr tablet 3. Moderate episode of recurrent major depressive disorder ([facility]) 4. Anxiety busPIRone (BUSPAR) 10 MG tablet Recommendations and Plan: Discuss hgba1c with patient. Continue same meds. Will add glipizide XL 5 mg daily, (avoid increasing metformin due to causes diarrhea). Discussed low carb diet and exercise. She will increase her buspar to 10 mg bid and follow up in 1 month. Orders Placed This Encounter ??? A1C (BACK OFFICE) ??? busPIRone (BUSPAR) 10 MG tablet ??? glipiZIDE XL (GLIPIZIDE XL) 5 MG 24 hr tablet Reviewed and updated this visit by provider: KAMI EDMOND PA-C Referring Provider: No ref. provider found PCP: KAMI EDMOND PA-C documented in this encounter Plan of Treatment Upcoming Encounters Date Type Department Care Team (Late st Contact Info) Description 11/07/2024 9:40 AM CDT Office Visit [facility] Family Medicine - [place] [phone] Kami Edmond PA-C [address] [place] [phone] documented as of this encounter Procedures Procedure Name Priority Date/Time Associated Diagnosis Comments HEMOGLOBIN, GLYCOSYLATED Today 03/02/2022 Type 2 diabetes mellitus without complication, without long-term current use of insulin ([facility]) documented in this encounter Results * (ABNORMAL) A1C (BACK OFFICE) (03/02/2022) HGB A1C 10.4([place]) % -[facility] 03/02/2022 us Kami Edmond PA-C LABORATORY Final Resu lt -[facility] [address] [place] [address], documented in this encounter Visit Diagnoses Diagnosis Essential hypertension- Primary Unspecified essential hypertension Type 2 diabetes mellitus without complication, without long-term current use of insulin ([facility]) Moderate episode of recurrent major depressive disorder ([facility]) Anxiety Anxiety state, unspecified documented in this encounter Additional Health Concerns Assessment Noted Time PHQ-9 Depression Total Score: 0 05/12/20 21 9:32 AM FILER FINISH documented as of this encounter Care Teams Tent Worker Relationship Specialty Start Date End Date Kami Edmond PA-C [address] [place] [phone] PCP - General PHYSICIAN AUTOMATION QA TESTER 02/05/21 documented as of this encounter
--- OUTSIDE RECORDS SUMMARY | 2024-06-23 15:12 | XMS_ITS | Encounter Summary ---
Author Organization [facility] Address [facility] [place] [address] [place] [address] Care Team Providers Care Axle Bearing Polisher Name Role Phone Kami Edmond PA-C Primary Care Provider +1- [phone] Reason for Visit * Reason Comments URI Symptoms, diahrrea, chills, fever, sleeping a lot, sinus pain in ear and forehead. has symptom on Encounter Details Date Type Department Care Team (Late st Contact Info) Description 07/21/2021 10:00 AM ENVIRONMENTAL CHANGE ANALYST Telemedicine [facility] Family Medicine - [place] [address] [place] [address] Kami Edmond PA-C [address] [place] [address] URI (Symptoms, diahrrea, chills, fever, sleeping a lot, sinus pain in ear and forehead. has symptom on ) Social History Tobacco Use Types Packs/Day [...] Coronavirus / COVID-19? Yes 07/21/2021 8:50 AM ENVIRONMENTAL CHANGE ANALYST documented as of this encounter Progress Notes * Kami Edmond PA-C - 07/21/2021 10:00 AM CST Reason for Visit: URI (Symptoms, diahrrea, chills, fever, sleeping a lot, sinus pain in ear and forehead. hassymptom on ) History of Present Illness: Patient on telephone visit for congestion and cough for 7 days. She has had a fever on and off of 101.6, chills, and Diarrhea. She has had ear pain bilaterally and her left ear is draining. She sees Dr. Zamarripa usually for ENT and has had tubes in the past. Denies sore throat, abdominal pain, shortness of breath, nausea and vomiting. Tried tylenol and mucinex without relief. Her tested positive for COVID on 07/12/21 and she got sick a few days later. She was never tested for COVID, but isassuming that she has COVID. ROS: Review of Systems Constitutional: Positive for chills and fever. HENT: Positive for congestion, ear discharge and ear pain. Negative for sore throat. Respiratory: Positive for cough. Negative for shortness of breath. Cardiovascular: Negative for chest pain. Gastrointestinal: Positive for diarrhea. Negative for abdominal pain, blood in stool, change in bowel habit, nausea and vomiting. All other systems reviewed and are negative. Medications: Current Outpatient Medications: ??? acetaminophen CR 650 MG Tab CR 8 hr tablet, Take 650 mg by mouth., Disp: , Rfl: ??? amoxicillin-clavulanate (AUGMENTIN) 875-125 MG tablet, Take 1 tablet (875 mg total) by mouth 2 (two) times daily for 10 days., Disp: 20 tablet, Rfl: 0 ??? aspirin EC (ASPIRIN EC) 81 MG tablet, Take 81 mg by mouth daily., Disp: , Rfl: ??? benzonatate (TESSALON PERLES) 100 MG capsule, Take 1 capsule (100 mg total) by mouth 3 (three) times daily as needed for Cough., Disp: 20 capsule, Rfl: 0 ??? busPIRone 7.5 MG tablet, Take 1 [...] reviewed. No pertinent surgical history. Social History Tobacco Use ??? Smoking status: Former Smoker Quit date: 1997 Years since quittin.0 ??? Smokeless tobacco: Never Used Vaping Use ??? Vaping Use: Never used Substance Use Topics ??? Alcohol use: Yes Comment: holidays only ??? Drug use: Never Family History Problem Relation Name Age of Onset ??? Diabetes Mother ??? Diabetes Father There were no vitals filed for this visit. Diagnoses/Impression: 1. Cough benzonatate (TESSALON PERLES) 100 MG capsule 2. Acute non-recurrent sinusitis, unspecified location 3. Otalgia of both ears amoxicillin-clavulanate (AUGMENTIN) 875-125 MG tablet Recommendations and Plan: She should go to [facility] for COVID test, but she needs to stay home as she has been doing since it is likely that she has COVID. She will increase rest and fluids. Take tylenol for fever, flonase OTC for congestion, and Tessalon perles for cough. Will stay home until her symptoms resolve. She will take augmentin for the ear pain and drainage and she will schedule a follow up with her ENTon her own. Call if the symptoms worsen. Go to the ER if experiences shortness of breath. Orders Placed This Encounter ??? cyclobenzaprine 10 MG tablet ??? docusate sodium 100 MG capsule ??? amoxicillin-clavulanate (AUGMENTIN) 875-125 MG tablet ??? benzonatate (TESSALON PERLES) 100 MG capsule Reviewed and updated this visit by provider: Tobacco Allergies Meds Problems Med Hx Surg Hx Fam Hx I had a brief patient communication by Telephone for URI/ear pain. I responded to the patient by Telephone with the following recommendations Augmentin. Prior to communication, I educated patient on insurance cost-sharing and obtained verbal consent. Total Time Spent in Minutes: 9 minutes. Patient completed the visit from her home and I completed the visit form the office. KAMI EDMOND PA-C Referring Provider: No ref. provider found PCP: KAMI EDMOND PA-C RONMENTAL CHANGE ANALYST documented in this encounter Plan of Treatment Upcoming Encounters Date Type Department Care Team (Late st Contact Info) Description 11/07/2024 9:40 AM CDT Office Visit [facility] Family Medicine - [place] [address] [place] [address] Kami Edmond PA-C [address] [place] [address] documented as of this encounter Visit Diagnoses Diagnosis Cough- Primary Acute non-recurrent sinusitis, unspecified location Otalgia of both ears Otalgia, unspecified documented in this encounter Additional Health Concerns Assessment Noted Time PHQ-9 Depression Total Score: 0 05/12/20 21 9:32 AM ENVIRONMENTAL CHANGE ANALYST documented as of this encounter Care Teams Axle Bearing Polisher Relationship Specialty Start Date End Date Kami Edmond PA-C [address] [place] [address] PCP - General PHYSICIAN CULINARY CHEF 02/05/21 documented as of this encounter
--- OUTSIDE RECORDS SUMMARY | 2024-06-23 15:12 | XMS_ITS | Encounter Summary ---
Author Organization [facility] Address [address] [place] [address]. [place] [address] [place] [address] Care Team Providers Care Oceanographic Meteorologist Name Role Phone Franny Dolan PA-C Primary Care Provider +1- [phone] Encounter Details Date Type Department Care Team (Late st Contact Info) Description 02/14/2022 Orders Only [facility] Family Medicine - [place] [address] [place] [address] Adore Samayoa MA Social History Tobacco Use [...] as of this encounter Progress Notes * Adore Samayoa MA - 02/14/2022 5:01 PM CDT We got a fax over from [facility] that patient would like to get her cetirizine from them not instead of mailorder. documented in this encounter Plan of Treatment Upcoming Encounters Date Type Department Care Team (Late st Contact Info) Description 11/07/2024 9:40 AM CDT Office Visit [facility] Family Medicine - [place] [address] [place] [address] Franny Dolan PA-C [address] [place] [phone] documented as of this encounter Visit Diagnoses Diagnosis Allergies documented in this encounter Additional Health Concerns Assessment Noted Time PHQ-9 Depression Total Score: 0 05/12/20 9:32 AM CLOTH DOFFER documented as of this encounter Care Teams Oceanographic Meteorologist Relationship Specialty Start Date End Date Franny Dolan PA-C [address] [place] [address] PCP - General PHYSICIAN NEWSPAPER PEDDLER 02/05/21 documented as of this encounter
--- OUTSIDE RECORDS SUMMARY | 2024-06-23 15:12 | XMS_ITS | Encounter Summary ---
Author Organization [facility] Address [address] [place] [address]. [place] [address] [place] [address] Care Team Providers Care Reversing Mill Roller Name Role Phone Franny Dolan PA-C Primary Care Provider +1- [phone] Encounter Details Date Type Department Care Team (Late st Contact Info) Description 08/23/2021 Orders Only [facility] [place] [phone] Alexx Pires II, MD [address] [place] [address] Social History Tobacco Use Types [...] Description 11/07/2024 9:40 AM CDT Office Visit [facility] [place] [address] [place] [phone] Franny Dolan PA-C [address] [place] [address] documented as of this encounter Visit Diagnoses Diagnosis Candidiasis of female genitalia- Primary Candidiasis of vulva and vagina documented in this encounter Additional Health Concerns Assessment Noted Time PHQ-9 Depression Total Score: 0 05/12/20 9:32 AM SENIOR TALENT ACQUISITION SPECIALIST documented as of this encounter Care Teams Reversing Mill Roller Relationship Specialty Start Date End Date Franny Dolan PA-C [address] [place] [address] PCP - General PHYSICIAN VISUAL DEVELOPER 02/05/21 documented as of this encounter
--- OUTSIDE RECORDS SUMMARY | 2024-06-23 15:12 | XMS_ITS | Encounter Summary ---
Author Organization [facility] Address [address] [place] [address]. [place] [address] [place] [address] Care Team Providers Care Knitting Machine Mechanic Name Role Phone Franny Dolan PA-C Primary Care Provider +1- [phone] Reason for Visit * Reason Onset Date Comments Surgery Questions 06/02/2021 Encounter Details Date Type Department Care Team (Late st Contact Info) Description 06/02/2021 Telephone [facility] Family Medicine - [place] [address] [place] [address] Franny Dolan PA-C [address] [place] [address] Surgery Questions Social History Tobacco Use Types Packs/Day Years [...] COVID-19? No / Unsure 05/30/2021 2:23 PM MED SURG RN documented as of this encounter Progress Notes * Deb Tobin MA - 06/02/2021 12:17 PM CST Patient informed that her Covid test result faxed SURG RN * Anabel Rios - 06/02/2021 11:58 AM CST Needs to have results of Covid-19 test sent to [phone] Fax number to [facility] SURG RN documented in this encounter Plan of Treatment Upcoming Encounters Date Type Department Care Team (Late st Contact Info) Description 11/07/2024 9:40 AM CDT Office Visit [facility] Family Medicine - [address] [phone] Franny Dolan PA-C [address] [place] [address] documented as of this encounter Visit Diagnoses Not on filedocumented in this encounter Additional Health Concerns Assessment Noted Time PHQ-9 Depression Total Score: 0 05/12/20 9:32 AM MED SURG RN documented as of this encounter Care Teams Knitting Machine Mechanic Relationship Specialty Start Date End Date Franny Dolan PA-C [address] [place] [address] PCP - General PHYSICIAN MANAGER INTERFACE 02/05/21 documented as of this encounter
--- OUTSIDE RECORDS SUMMARY | 2024-06-23 15:12 | XMS_ITS | Encounter Summary ---
Author Organization [facility] Address [address] [place] [address]. [place] [address] [place] [address] Care Team Providers Care Manager Internal Name Role Phone Franny Dolan PA-C Primary Care Provider +1- [phone] Reason for Visit * Reason Onset Date Comments Medication Request 07/20/2022 Encounter Details Date Type Department Care Team (Late st Contact Info) Description 07/20/2022 Telephone [facility] Family Medicine - [place] [address] [place] [address] Franny Dolan PA-C [address] [place] [address] Medication Request Social History Tobacco [...] as of this encounter Progress Notes * Franny Dolan PA-C - 07/20/2022 3:18 PM CST I would prefer to discuss with her at her appointment R RESOURCE ENGINEER * Janeth Solorzano - 07/20/2022 1:46 PM CST Pt is asking for abilify to be prescribed. brenda santana Pt [phone] R RESOURCE ENGINEER documented in this encounter Plan of Treatment Upcoming Encounters Date Type Department Care Team (Late st Contact Info) Description 11/07/2024 9:40 AM CDT Office Visit [facility] Family Medicine - [address] [phone] Franny Dolan PA-C [address] [place] [address] documented as of this encounter Visit Diagnoses Not on filedocumented in this encounter Additional Health Concerns Assessment Noted Time PHQ-9 Depression Total Score: 0 05/12/20 21 9:32 AM WATER RESOURCE ENGINEER documented as of this encounter Care Teams Manager Internal Relationship Specialty Start Date End Date Franny Dolan PA-C [address] [place] [address] PCP - General PHYSICIAN INVESTMENT COUNSELOR 02/05/21 documented as of this encounter
--- OUTSIDE RECORDS SUMMARY | 2024-06-23 15:12 | XMS_ITS | Encounter Summary ---
Author Organization [facility] Address [address] [place] [address]. [place] [address] [place] [address] Care Team Providers Care Bookkeeping Teacher Name Role Phone Kami Edmond PA-C Primary Care Provider +1- [phone] Reason for Visit * Reason Onset Date Comments Refill Request 10/01/2021 Encounter Details Date Type Department Care Team (Late st Contact Info) Description 10/01/2021 Telephone [facility] Family Medicine - [place] [address] [place] [phone] Kami Edmond PA-C 100 [place] [address] Refill Request Social History Tobacco [...] Progress Notes * Deb Tobin MA - 10/01/2021 10:45 AM CDT Outpatient Medications Marked as Taking for the 4/8/22 encounter (Telephone) with Kami Edmond PA-C Medication Sig Dispense Refill ??? busPIRone 7.5 MG tablet Take 1 tablet (7.5 mg total) by mouth 2 (two) times daily. 180 tablet 1 Medication refill request for: Last visit with MAYITO KAMI M in FAMILY PRACTICE was on: 08/30/2021 in [facility] Next visit with KAMI EDMOND in FAMILY PRACTICE is on: 11/30/2021 in [facility] Please sign pending Rx * Anabel Rios - 10/01/2021 10:35 AM CDT Call back [phone] Pt called and said that she is only going to be using [facility]. [facility] in [address] She is needing a refill on medications busPIRone 7.5 MG tablet 90 days Last appt august 30 nxt appt 11/30/2021 at 9:20 AM documented in this encounter Plan of Treatment Upcoming Encounters Date Type Department Care Team (Late st Contact Info) Description 11/07/2024 9:40 AM CDT Office Visit [facility] Family Medicine - [address] [phone] Kami Edmond PA-C [address] [place] [address] documented as of this encounter Visit Diagnoses Diagnosis Anxiety Anxiety state, unspecified documented in this encounter Additional Health Concerns Assessment Noted Time PHQ-9 Depression Total Score: 0 05/12/20 21 9:32 AM CHIEF LOCK TENDER OPERATOR documented as of this encounter Care Teams Bookkeeping Teacher Relationship Specialty Start Date End Date Kami Edmond PA-C [address] [place] [address] PCP - General PHYSICIAN BRICK OFF BEARER 02/05/21 documented as of this encounter
--- OUTSIDE RECORDS SUMMARY | 2024-06-23 15:12 | XMS_ITS | Encounter Summary ---
Author Organization [facility] Address [address] [place] [address]. [place] [address] [place] [address] Care Team Providers Care Molecular Biology Scientist Name Role Phone Franny Dolan PA-C Primary Care Provider +1- [phone] Encounter Details Date Type Department Care Team (Latest Contact Info) Description 09/01/2022 Scan [facility] Scanned, Doc [...] Coronavirus/COVID-19? No / Unsure 08/17/2022 10:34 AM SENIOR MAINFRAME PROGRAMMER ANALYST documented as of this encounter Plan of Treatment Upcoming Encounters Date Type Department Care Team (Late st Contact Info) Description 11/07/2024 9:40 AM CDT Office Visit [facility] Medical [facility] Family Medicine - [place] [address] [place] [phone] Franny Dolan PA-C [address] [place] [address] documented as of this encounter Visit Diagnoses Not on filedocumented in this encounter Additional Health Concerns Assessment Noted Time PHQ-9 Depression Total Score: 13 023 8:53 AM SENIOR MAINFRAME PROGRAMMER ANALYST documented as of this encounter Care Teams Molecular Biology Scientist Relationship Specialty Start Date End Date Franny Dolan PA-C [address] [place] [address] PCP - General PHYSICIAN TEACHER LEARNING DISABLED 02/05/21 documented as of this encounter
--- OUTSIDE RECORDS SUMMARY | 2024-06-23 15:12 | XMS_ITS | Encounter Summary ---
Author Organization [facility] Address [address] [place] [address]. [place] [address] [place] [address] Care Team Providers Care Mother'S Helper Name Role Phone Franny Dolan PA-C Primary Care Provider +1- [phone] Encounter Details Date Type Department Care Team (Latest Contact Info) Description 05/30/2021 Travel Social History Tobacco Use Types Packs/Day [...] COVID-19? No / Unsure 05/30/2021 2:23 PM LEISURE TRAVEL AGENT documented as of this encounter Plan of Treatment Upcoming Encounters Date Type Department Care Team (Late st Contact Info) Description 11/07/2024 9:40 AM CDT Office Visit [facility] Family Medicine - [place] [address] [place] [phone] Franny Dolan PA-C [address] [place] [address] documented as of this encounter Visit Diagnoses Not on filedocumented in this encounter Additional Health Concerns Assessment Noted Time PHQ-9 Depression Total Score: 0 05/12/20 21 9:32 AM LEISURE TRAVEL AGENT documented as of this encounter Care Teams Mother'S Helper Relationship Specialty Start Date End Date Franny Dolan PA-C [address] [place] [address] PCP - General PHYSICIAN LINE TESTER 02/05/21 documented as of this encounter
--- OUTSIDE RECORDS SUMMARY | 2024-06-23 15:12 | XMS_ITS | Encounter Summary ---
Author Organization [facility] Address [address] [place] [address]. [place] [address] [place] [address] Care Team Providers Care Busboy Name Role Phone Kami Edmond PA-C Primary Care Provider +1- [phone] Reason for Visit * Reason Comments Diabetes Patient here for fol low up diabetes and labs Encounter Details Date Type Department Care Team (Late st Contact Info) Description 11/30/2021 9:20 AM CDT Office Visit [facility] Medical [facility] Family Medicine - [place] [phone] Kami Edmond PA-C [address] [place] [address] Diabetes (Patient here for follow up diabetes and labs) Social History Tobacco Use Types Packs/Day [...] Sign Reading Time Taken Comments Blood Pressure 138/86 11/30/2021 9:47 AM CDT Pulse 69 11/30/2021 9:02 AM CDT Temperature 36.4 ??C (97.5 ??F) 11/30/2021 9:02 AM CD T Respiratory Rate - - Oxygen Saturation 95% 11/30/2021 9:02 AM CDT Inhaled Oxygen Concentration - - Weight 124.3 kg (274 lb) 11/30/2021 9:02 AM CDT Height 162.6 cm (5' 4 ) 11/30/2021 9:02 AM CDT Body Mass Index 47.03 11/30/2021 9:02 AM CDT documented in this encounter Progress Notes * Kami Edmond PA-C - 11/30/2021 9:20 AM CDT Reason for Visit: Diabetes (Patient here for follow up diabetes and labs) History of Present Illness: Patient here for follow up diabetes. Takes medications daily. Tries to follow low carb diet and exercise. Checks blood sugars daily. Fasting blood sugars usually range from 130 to 180. Last HgbA1C was 7.8. Last eye exam was 11/28/21. She has only been taking one metformin a day to help her diarrhea. Her diet hasn't been as good as it was. Feels cymbalta is helping the depression and anxiety. Deniesany crying episodes, depressive mood, anxiety or suicide thoughts on the medication. She has been having some watery eyes and itchy eyes for the last week. She denies any vision changes and dischargein the eyes. ROS: Review of Systems Eyes: Positive for itching. Negative for pain, discharge, redness and visual disturbance. Respiratory: Negative for shortness of breath. Cardiovascular: Negative for chest pain. Psychiatric/Behavioral: Negative for self-injury and suicidal ideas. All other systems reviewed and are negative. Medications: Current Outpatient Medications: ??? acetaminophen CR 650 MG Tab CR 8 hr tablet, Take 650 mg by mouth., Disp: , Rfl: ??? aspirin EC 81 MG tablet, Take 81 mg by mouth daily., Disp: , Rfl: ??? busPIRone 7.5 MG tablet, Take 1 tablet (7.5 mg total) by mouth 2 (two) times daily., Disp: 180 tablet, Rfl: 1 ??? CETIRIZINE 10 MG tablet, TAKE 1 TABLET DAILY, Disp: 90 tablet, Rfl: 3 ??? ciprofloxacin-dexamethasone otic suspension, ADMINISTER 3 DROPS INTO THE LEFT EAR 2 (TWO) TIMESA DAY FOR 14 DAYS, Disp: , Rfl: ??? clobetasol 0.05 % ointment, Apply topically 2 (two) times daily., Disp: , Rfl: ??? cyclobenzaprine 10 MG tablet, Take 10 mg by mouth., Disp: , Rfl: ??? docusate sodium 100 MG capsule, , Disp: , Rfl: ??? DULOXETINE 60 MG capsule, TAKE 1 CAPSULE DAILY, Disp: 90 capsule, Rfl: 3 ??? FENOFIBRATE MICRONIZED 134 MG capsule, TAKE 1 CAPSULE DAILY, Disp: 90 capsule, Rfl: 3 ??? fluconazole 100 MG tablet, , Disp: , Rfl: ??? fluticasone propionate 50 [...] area, Disp: 60 g, Rfl: 1 ??? olopatadine 0.2 % Solution, Place 1 drop into both eyes daily., Disp: 2.5 mL, Rfl: 0 ??? sulfamethoxazole-trimethoprim 800-160 MG tablet, Take 1 tablet by mouth 2 (two) times daily., Disp: , Rfl: ??? SYNTHROID 100 MCG tablet, Take 1 tablet (100 mcg total) by mouth every morning., Disp: 90 tablet, Rfl: 1 ??? Tdap (ADACEL) 5-2-15.5 LF-MCG/0.5 injection, Inject 0.5 mLs into the muscle once for 1 dose., Disp: 0.5 mL, Rfl: 0 ??? zoster vaccine (SHINGRIX) (SHINGRIX) injection, Inject 0.5 mLs into the muscle once for 1 dose., Disp: 1 each, Rfl: 0 Allergies Allergen Reactions ??? Pollen Extract Runny Nose ??? Bee Pollen Runny Nose Tree pollen ??? Dust Mite Extract Runny Nose ? ? Molds & Smuts Runny Nose History reviewed. No pertinent past medical history. History reviewed. No pertinent surgical history. Social History Socioeconomic History ??? Marital status: Tobacco Use ??? Smoking status: Former Smoker Quit date: 1997 Years since quittin.4 ??? Smokeless tobacco: Never Used Vaping Use [...] Constitutional: Appearance: Normal appearance. HENT: Head: Normocephalic. Eyes: Conjunctiva/sclera: Conjunctivae normal. Pupils: Pupils are equal, round, and reactive to light. Neck: Thyroid: No thyromegaly. Cardiovascular: Rate and Rhythm: Normal rate and regular rhythm. Pulmonary: Effort: Pulmonary effort is normal. Breath sounds: Normal breath sounds. Musculoskeletal: Right lower leg: No edema. Left lower leg: No edema. Neurological: Mental Status: She is alert. Psychiatric: Mood and Affect: Mood normal. Filed Vitals: 11/30/21 0902 11/30/21 0947 BP: (!) 168/83 138/86 Pulse: 69 Temp: 97.5 ??F (36.4 ??C) TempSrc: Temporal SpO2: 95% Weight: 124.3 kg (274 lb) Height: 5' 4 (1.626 m) PainSc: 0 (0-10 Scale) Diagnoses/Impression: 1. Need for shingles vaccine zoster vaccine (SHINGRIX) (SHINGRIX) injection 2. Essential hypertension 3. Type 2 diabetes mellitus without complication, without long-term current use of insulin ([facility]) 4. Mixed hyperlipidemia 5. Hypothyroidism, unspecified type 6. Moderate episode of recurrent major depressive disorder (CMS/HCC) 7. Anxiety 8. Need for Tdap vaccination Tdap (ADACEL) 5-2-15.5 LF-MCG/0.5 injection 9. Allergic conjunctivitis of both eyes olopatadine 0.2 % Solution Recommendations and Plan: Discussed labs with patient. Continue same meds. She will try to increase metformin to BID again ifshe can tolerate the diarrhea. Discussed low carb diet and exercise. Discussed limiting salt and cafeine. Discussed monitoring blood pressure at home and call if above 140/90 consistently. Needs to bring blood pressure log to follow up appointment to review. Can also bring blood pressure machine tovisit to check for accuracy in the office. She will have her shingles and tdap vaccines at pharmacy. She will try pataday eye drops. If her eyes continue to itch and feel watery she will schedule with her eye doctor. She will follow up in 3 months with [id number] in office. Orders Placed This Encounter ??? fluconazole 100 MG tablet ??? ciprofloxacin-dexamethasone otic suspension ??? sulfamethoxazole-trimethoprim 800-160 MG tablet ??? Tdap (ADACEL) 5-2-15.5 LF-MCG/0.5 injection ??? zoster vaccine (SHINGRIX) (SHINGRIX) injection ??? olopatadine 0.2 % Solution Reviewed and updated this visit by provider: [...] [facility] Family [facility] - [place] [address] [place] [phone] Kami Edmond PA-C [address] [place] [address] documented as of this encounter Visit Diagnoses Diagnosis Need for shingles vaccine- Primary Need for prophylactic vaccination and inoculation against other viral diseases Essential hypertension Unspecified essential hypertension Type 2 diabetes mellitus without complication, without long-term current use of insulin ([facility]) Mixed hyperlipidemia Hypothyroidism, unspecified type Moderate episode of recurrent major depressive disorder ([facility]) Anxiety Anxiety state, unspecified Need for Tdap vaccination Need for prophylactic vaccination with combined ikqvvjkebw-kdnzprk-rsbrepbsg (DTP) vaccine Allergic conjunctivitis of both eyes Other chronic allergic conjunctivitis documented in this encounter Additional Health Concerns Assessment Noted Time PHQ-9 Depression Total Score: 0 05/12/20 9:32 AM CLINICAL NURSING PROFESSOR documented as of this encounter Care Teams Busboy Relationship Specialty Start Date End Date Kami Edmond PA-C [address] [place] [address] PCP - General PHYSICIAN PATIENT CARRIER 02/05/21 documented as of this encounter
--- OUTSIDE RECORDS SUMMARY | 2024-06-23 15:12 | XMS_ITS | Encounter Summary ---
Author Organization [facility] Address [address] [place] [address]. [place] [address] [place] [address] Care Team Providers Care Frothing Machine Operator Name Role Phone Franny Dolan PA-C Primary Care Provider +1- [phone] Reason for Visit * Reason Onset Date Comments Medication Request 08/19/2021 Encounter Details Date Type Department Care Team (Late st Contact Info) Description 08/19/2021 Telephone [facility] Family Medicine - [place] [address] [place] [address] Franny Dolan PA-C [address] [place] [address] Medication Request Social History Tobacco Use [...] Coronavirus / COVID-19? Yes 07/21/2021 8:50 AM LITIGATION ASSISTANT documented as of this encounter Progress Notes * Anabel Rios - 08/23/2021 1:08 PM CST I managed to press the wrong button on the phone. I thought I had accidentally hung up the phone onthe pt, but actually transferred her back to a [place] line. Dr. Pires answered the phone and said that he would have something called in for the pt for theyeast infection. I called her back to verify what happened and said that Dr. Pires answered the call GATION ASSISTANT * Deb Tobin MA - 08/23/2021 8:29 AM CST I think so yes, I tried to call her but no answer GATION ASSISTANT * Franny Dolan PA-C - 08/22/2021 6:21 PM CST Does she mean diflucan? This is for yeast infection, confirm that she needs medication for yeast infection. GATION ASSISTANT * Deb Tobin MA - 08/19/2021 11:52 AM CST I don't see Diazepam on patient med list GATION ASSISTANT * Marie Kwong - 08/19/2021 11:40 AM CST Pt is needing a prescription for diazepam, Pt usually gets yeast infections after antibiotics. Pt uses [facility] in [place], [place] Can be reached @ [phone] GATION ASSISTANT documented in this encounter Plan of Treatment Upcoming Encounters Date Type Department Care Team (Late st Contact Info) Description 11/07/2024 9:40 AM CDT Office Visit [facility] Family Medicine - [place] [phone] Franny Dolan PA-C [address] [place], [place] [address] documented as of this encounter Visit Diagnoses Not on filedocumented in this encounter Additional Health Concerns Assessment Noted Time PHQ-9 Depression Total Score: 0 05/12/20 21 9:32 AM LITIGATION ASSISTANT documented as of this encounter Care Teams Frothing Machine Operator Relationship Specialty Start Date End Date Franny Dolan PA-C [address] [place] [address] PCP - General PHYSICIAN WOOD CARVER 02/05/21 documented as of this encounter
--- OUTSIDE RECORDS SUMMARY | 2024-06-23 15:12 | XMS_ITS | Encounter Summary ---
Author Organization [facility] Address [address] [place] [address]. [place], [place] [address] [place] [address] Care Team Providers Care Coloring Room Man Name Role Phone Franny Dolan PA-C Primary Care Provider +1- [phone] Encounter Details Date Type Department Care Team (Latest Contact Info) Description 08/17/2022 Travel Social History Tobacco Use Types Packs/Day [...] Coronavirus/COVID-19? No / Unsure 08/17/2022 10:34 AM CSO documented as of this encounter Plan of Treatment Upcoming Encounters Date Type Department Care Team (Late st Contact Info) Description 11/07/2024 9:40 AM CDT Office Visit [facility] Family Medicine - [place] [address] [place] [phone] Franny Dolan PA-C [address] [place] [address] documented as of this encounter Visit Diagnoses Not on filedocumented in this encounter Additional Health Concerns Assessment Noted Time PHQ-9 Depression Total Score: 13 023 8:53 AM CSO documented as of this encounter Care Teams Coloring Room Man Relationship Specialty Start Date End Date Franny Dolan PA-C [address] [place] [address] PCP - General PHYSICIAN FLEXO FOLDER GLUER OPERATOR 02/05/21 documented as of this encounter
--- OUTSIDE RECORDS SUMMARY | 2024-06-23 15:12 | XMS_ITS | Encounter Summary ---
Author Organization [facility] Address [address] [place] [address]. [place] [address] [place] [address] Care Team Providers Care Hospice Volunteer Coordinator Name Role Phone Kami Edmond PA-C Primary Care Provider [phone] Reason for Visit * Reason Comments UTI Patient present for possible UTI Encounter Details Date Type Department Care Team (Late st Contact Info) Description 07/26/2022 8:40 AM VAMP SEAMER Office Visit [facility] Family Medicine - [place] [phone] Kami Edmond PA-C [address] [place] [phone] UTI (Patient present for possible UTI) Social History Tobacco Use Types Packs/Day Years [...] Coronavirus/COVID-19? No / Unsure 07/26/2022 8:38 AM VAMP SEAMER documented as of this encounter Last Filed Vital Signs Vital Sign Reading Time Taken Comments Blood Pressure 145/70 07/26/2022 9:29 AM VAMP SEAMER Pulse 66 07/26/2022 8:58 AM VAMP SEAMER Temperature 36.1 ??C (96.9 ??F) 07/26/2022 8:58 AM CS T Respiratory Rate 18 07/26/2022 8:58 AM VAMP SEAMER Oxygen Saturation 98% 07/26/2022 8:58 AM VAMP SEAMER Inhaled Oxygen Concentration - - Weight 126.4 kg (278 lb 9.6 oz) 07/26/2022 8:58 AM VAMP SEAMER Height 165.1 cm (5' 5 ) 07/26/2022 8:58 AM VAMP SEAMER Body Mass Index 46.36 07/26/2022 8:58 AM VAMP SEAMER documented in this encounter Progress Notes * Kami Edmond PA-C - 07/26/2022 8:40 AM CST Reason for Visit: UTI (Patient present for possible UTI) History of Present Illness: Patient here for possible UTI. She has urine odor for about 1 week. She denies fever, dysuria, urine frequency, low back pain, hematuria, abdominal pain, flank pain, diarrhea, constipation, blood in stool, and melena. She denies vaginal discharge. She gets yeast infections on antibiotics and will need diflucan. She would like to get her labs before her follow up apt and needs the order to do sooner. She saw a psychiatrist for her depression and it was suggested she add abilify to her cymbalta. He didn't prescribe the abilify and she was told to discuss getting script with her PCP. She has follow up with him in a few months. Her depression was worse and she has been feeling it is getting better the last few weeks. Denies suicide thoughts. ROS: Review of Systems Constitutional: Negative for fever. Respiratory: Negative for shortness of breath. Cardiovascular: Negative for chest pain. Gastrointestinal: Negative for abdominal pain, blood in stool, change in bowel habit, constipation,diarrhea, heartburn, melena, nausea and vomiting. Genitourinary: Negative for dysuria, flank pain, frequency, hematuria, urgency and vaginal discharge. Psychiatric/Behavioral: Positive for depression. Negative for self-injury and suicidal ideas. All other systems reviewed and are negative. Medications: Current Outpatient Medications: ??? acetaminophen CR 650 MG Tab CR 8 hr tablet, Take 650 mg by mouth., Disp: , Rfl: ??? busPIRone (BUSPAR) 10 MG tablet, TAKE 1 TABLET(10 MG) BY MOUTH TWICE DAILY, Disp: 60 tablet, Rfl: 1 ??? cetirizine (ZYRTEC) 10 MG tablet, Take 1 tablet (10 mg total) by mouth daily., Disp: 90 tablet,Rfl: 3 ??? ciprofloxacin (CIPRO) 500 MG tablet, Take 1 tablet (500 mg total) by mouth 2 (two) times daily for 7 days., Disp: 14 tablet, Rfl: 0 ??? DULoxetine (CYMBALTA) 60 MG capsule, TAKE [...] daily., Disp: 60 g, Rfl: 1 ??? cyclobenzaprine 10 MG tablet, Take 10 mg by mouth., Disp: , Rfl: ??? fluconazole (DIFLUCAN) 150 MG tablet, , Disp: , Rfl: Allergies Allergen [...] Types: Cigarettes Quit date: 1997 Years since quittin.0 ??? Smokeless tobacco: Never Vaping Use ??? [...] Mood and Affect: Mood normal. Filed Vitals: 07/26/22 0858 07/26/22 0929 BP: (!) 148/83 (!) 145/70 Pulse: 66 Resp: 18 Temp: 96.9 ??F (36.1 ??C) TempSrc: Skin SpO2: 98% Weight: 126.4 kg (278 lb 9.6 oz) Height: 5' 5 (1.651 m) Results for orders placed or performed in visit on 07/26/22 URINALYSIS AUTO DIP Result Value Ref Range COLOR (U) YELLOW TRANSPARENCY CLEAR GLUCOSE (U) NEGATIVE NEGATIVE MG/DL BILIRUBIN (U) NEGATIVE NEGATIVE U KETONES NEGATIVE NEGATIVE MG/DL Specific [place] (U) 1.025 1.001 - 1.035 BLOOD TRACE (Hemolyzed) NEGATIVE U PH 6.0 5.0 - 9.0 PROTEIN (U) NEGATIVE NEGATIVE mg/dL UROBILINOGEN 2.0 0.2 - 1.0 EU/dL = mg/dL NITRITES NEGATIVE NEGATIVE MG/DL LEUKOCYTE ESTERASE 1+ (SMALL) NEGATIVE Diagnoses/Impression: 1. Abnormal urine odor URINALYSIS AUTO DIP 2. Cystitis ciprofloxacin (CIPRO) 500 MG tablet 3. Acute vaginitis fluconazole (DIFLUCAN) 150 MG tablet 4. Essential hypertension COMPREHENSIVE METABOLIC PANEL 5. Acquired hypothyroidism THYROID STIM HORMONE, TSH THYROXINE, FREE (FT4) levothyroxine (SYNTHROID) 100 MCG tablet 6. Mixed hyperlipidemia LIPID PANEL 7. Type 2 diabetes mellitus with hyperglycemia, without long-term current use of insulin ([facility]) COMPREHENSIVE METABOLIC PANEL HEMOGLOBIN, GLYCOSYLATED 8. Moderate episode of recurrent major depressive disorder ([facility]) Recommendations and Plan: She will have labs done. Continue same meds for HTN and depression. Discussed UA results were positive for cystitis/ UTI with patient. She will take cipro 500 mg for cystitis/UTI and diflucan. Discussed depression and adding abilify along with the side effects. She has also read about the side effects and is unsure she wants to start abilify due to side effects. Her depression has been improving recently so she prefers to observe for now and not add abilify yet. She will keep her follow up in afew weeks to reassess at her regular apt I spent 35 minutes today reviewing the patient's medical record, obtaining history, performing an exam, ordering medications, tests, and/or procedures, documenting in the medical record, referring and/or communicating with other health care providers, counseling and educating the patient, reviewingand communicating test results and coordinating care. Orders Placed This Encounter ??? URINALYSIS AUTO DIP ??? COMPREHENSIVE METABOLIC PANEL ??? HEMOGLOBIN, GLYCOSYLATED ??? THYROID STIM HORMONE, TSH ??? THYROXINE, FREE (FT4) ??? LIPID PANEL ??? fluconazole (DIFLUCAN) 150 MG tablet ??? ciprofloxacin (CIPRO) 500 MG tablet ??? fluconazole (DIFLUCAN) 150 MG tablet ??? levothyroxine (SYNTHROID) 100 MCG tablet Reviewed and updated this visit by provider: Tobacco Allergies Meds Problems Med Hx Surg Hx Fam Hx KAMI EDMOND PA-C Referring Provider: No ref. provider found PCP: KAMI EDMOND PA-C SEAMER documented in this encounter Plan of Treatment Upcoming Encounters Date Type Department Care Team (Late st Contact Info) Description 11/07/2024 9:40 AM CDT Office Visit [facility] Family Medicine - [place] [phone] Kami Edmond PA-C [address] [place] [phone] documented as of this encounter Procedures Procedure Name Priority Date/Time Associated Diagnosis Comments HEMOGLOBIN, GLYCOSYLATED Routine 10/17/2022 7:17 AM CDT Type 2 diabetes mellitus with hyperglycemia, without long-term current use of insulin ([facility]) COMPREHENSIVE METABOLIC PANEL Routine 10/17/2022 7:17 AM CDT Essential hypertension Type 2 diabetes mellitus with hyperglycemia, without long-term current use of insulin ([facility]) LIPID PANEL Routine 10/17/2022 7:17 AM CDT Mixed hyperlipidemia THYROXINE, FREE (FT4) Routine 10/17/2022 7:17 AM CDT Acquired hypothyroidism THYROID STIM HORMONE TSH Routine 10/17/2022 7:17 AM CDT Acquired hypothyroidism URINALYSIS AUTO DIP Today 07/26/2022 Abnormal urine odor documented in this encounter Results * (ABNORMAL) LIPID PANEL (10/17/2022 7:17 AM CDT) Pathologist [facility] CHOLESTEROL 142 <200 mg/dL [facility] HDL 54 > OR = 50 mg/dL [facility] TRIGLYCERIDES 156(H) <150 mg/dL [facility] LDL (CALCULATED) 65 mg/dL (calc) [facility] Comment: Reference range: <100 Desirable range <100 mg/dL for primary prevention; ?? <70 mg/dL for patients with CHD or diabetic patients with > or = 2 CHD risk factors. LDL-C is now calculated using the Prakash calculation, which is a validated novel method providing better accuracy than the Friedewald equation in the estimation of LDL-C. Trino SS et al. CELSA. 2013;310(19): 3236-8408 (http://education.Matchpoint Careers/faq/QRI772) CHOL/HDL RATIO 2.6 <5.0 (calc) [facility] NON HDL CHOLESTEROL 88 <130 mg/dL (calc) [facility] Comment: For patients with diabetes plus 1 major ASCVD risk factor, treating to a non-HDL-C goal of <100 mg/dL (LDL-C of <70 mg/dL) is considered a therapeutic option. 10/17/2022 7:17 AM CDT 10/17/2022 7:19 AM CDT Narrative [facility] - 10/18/2022 2:19 AM CDT FASTING:YES FASTING: YES Resulting Agency Comment Performing Organization Information: ?Site ID: [place] ?Name: [facility] ?Address: [address] [place] [address] ?Director: Shante Salvador MD us Kami Edmond PA-C LABORATORY Final Resu lt [facility] - [facility] [address] [place] [address], * THYROXINE, FREE (FT4) (10/17/2022 7:17 AM CDT) [facility] FREE T4 1.2 0.8 - 1.8 ng/dL [facility] 10/17/2022 7:17 AM CDT 10/17/2022 7:19 AM CDT Narrative [facility] - 10/18/2022 2:19 AM CDT FASTING:YES FASTING: YES Resulting Agency Comment Performing Organization Information: ?Site ID: [place] ?Name: [facility] ?Address: [address] [place] [address] [place] [address] ?Director: Shante Salvador MD Kami TROYC LABORATORY Final Resu lt Performing Organization Address City/[facility]/ZIP Co de Phone Number [facility] - [facility] TH[facility] [address] [address], * THYROID STIM HORMONE, TSH (10/17/2022 7:17 AM CDT) TSH 2.09 0.40 - 4.50 mIU/L [facility] 10/17/2022 7:17 AM CDT 10/17/2022 7:19 AM CDT Narrative [facility] - 10/18/2022 2:19 AM CDT FASTING:YES FASTING: YES Resulting Agency Comment Performing Organization Information: ?Site ID: SHAMIKA ?Name: [facility] ?Address: [address] [place] [phone] ?Director: Shante Salvador MD Kami Edmond PA-C LABORATORY Final Resu lt [facility] [id number] [place] [address], * (ABNORMAL) HEMOGLOBIN, GLYCOSYLATED (10/17/2022 7:17 AM CDT) HGB A1C 6.8(H) <5.7 % of total Hgb [facility] [place] Comment: For someone without known diabetes, [...] for diagnosis of diabetes for children. ?? 10/17/2022 7:17 AM CDT 10/17/2022 7:19 AM CDT Narrative [facility] - 10/18/2022 2:19 AM CDT FASTING:YES FASTING: YES Resulting Agency Comment Performing Organization Information: ?Site ID: [place] ?[facility]: [facility] ?Address: [address] [place] [phone] ?Director: Shante Salvador us Kami Edmond PA-C LABORATORY Final Resu lt [facility] [address], * (ABNORMAL) COMPREHENSIVE METABOLIC PANEL (10/17/2022 7:17 AM CDT) [facility] GLUCOSE 133(H) 65 - 99 mg/dL [facility] Comment: ? Fasting reference interval For someone without known diabetes, a glucose value >125 mg/dL indicates that they may have diabetes and this should be confirmed with a follow-up test. BUN 15 7 - 25 mg/dL [facility] CREATININE S/P/B 0.77 0.50 - 1.05 mg/dL [facility] GFR ESTIMATE 85 > OR = 60 mL/min/1 .73m2 [facility] Comment: The eGFR is based on the CKD-EPI 2020 equation. To calculate the new eGFR from a previous Creatinine or Cystatin C result, go to https://www.kidney.org/professionals/ kdoqi/gfr%5Fcalculator BUN CREATININE RATIO NOT APPLICABLE (calc) [facility] SODIUM S/P/B 138 135 - 146 mmol/L [facility] POTASSIUM S/P/B 4.0 3.5 - 5.3 mmol/L [facility] ANALISA CHLORIDE S/P/B 101 98 - 110 mmol/L [facility] CO2 26 20 - 32 mmol/L [facility] CALCIUM S/P/B 10.0 8.6 - 10.4 mg/dL [facility] TOTAL PROTEIN S/P/B 7.0 6.1 - 8.1 g/dL [facility] ALBUMIN S/P/B 4.1 3.6 - 5.1 g/dL [facility] GLOBULIN 2.9 1.9 - 3.7 g/dL (calc) [facility] ALBUMIN/GLOBULI N RATIO 1.4 1.0 - 2.5 (calc) [facility] BILIRUBIN TOTAL S/P/B 0.5 0.2 - 1.2 mg/dL [facility] ALKALINE PHOSPHATASE S/P/B 118 37 - 153 U/L [facility] AST 43(H) 10 - 35 U/L [facility] ALT 40(H) 6 - 29 U/L [facility] 10/17/2022 7:17 AM CDT 10/17/2022 7:19 AM CDT Narrative [facility] - 10/18/2022 2:19 AM CDT FASTING:YES FASTING: YES Resulting Agency Comment Performing Organization Information: ?Site ID: [place] ?Name: [facility] ?Address: [address] [place] [address] ?Director: Shante Salvador MD us Kami Edmond PA-C LABORATORY Final Resu lt [facility] [address] [place] [address], * URINALYSIS AUTO DIP (07/26/2022) COLOR (U) YELLOW MG-[address],[place] TRANSPARENCY CLEAR MG-[address],[place] GLUCOSE (U) NEGATIVE NEGATIVE MG/DL MG-[address],[place] BILIRUBIN (U) NEGATIVE NEGATIVE MG-[address],[place] KETONES MG/DL (U) NEGATIVE NEGATIVE MG/DL MG-[address],[place] SPECIFIC GRAVITY (U) 1.025 1.001 - 1.035 MG-[address],[place] BLOOD (U) TRACE (Hemolyzed) NEGATIVE MG-[address],[place] U PH 6.0 5.0 - 9.0 MG-[address],[place] PROTEIN (U) NEGATIVE NEGATIVE mg/dL MG-[address],[place] UROBILINOGEN 2.0 0.2 - 1.0 EU/dL = mg/dL MG-[address],[place] NITRITES NEGATIVE NEGATIVE MG/DL MG-[address],[place] LEUKOCYTES (U) 1+ (SMALL) NEGATIVE MG-[address],[place] URINE SPECIMEN OBTAINED BY CLEAN CATCH PROCEDURE / Unknown 07/26/2022 us Kami Edmond PA-C URINE ORDERABLES Final Res ult MG-[address],[place] [address] [place] [address], documented in this encounter Visit Diagnoses Diagnosis Abnormal urine odor- Primary Other nonspecific finding on examination of urine Cystitis Cystitis, unspecified Acute vaginitis Vaginitis and vulvovaginitis, unspecified Essential hypertension Unspecified essential hypertension Acquired hypothyroidism Unspecified hypothyroidism Mixed hyperlipidemia Type 2 diabetes mellitus with hyperglycemia, without long-term current use of insulin ([facility]) Moderate episode of recurrent major depressive disorder ([facility]) documented in this encounter Additional Health Concerns Assessment Noted Time PHQ-9 Depression Total Score: 13 023 8:53 AM VAMP SEAMER documented as of this encounter Care Teams Hospice Volunteer Coordinator Relationship Specialty Start Date End Date Kami Edmond PA-C [address] [facility] [place] [address] PCP - General PHYSICIAN NUTRITIONAL SERVICES COOK 02/05/21 documented as of this encounter
--- OUTSIDE RECORDS SUMMARY | 2024-06-23 15:13 | XMS_ITS | Encounter Summary ---
Author Organization [facility] Address [address] [place] [address]. [place], [place] [phone] [place] [address] Care Team Providers Care Lead Database Administrator Name Role Phone Alex Browne MD Primary Care Provider Unav ailable Reason for Visit * Reason Comments Lab (SCAN) Encounter Details Date Type Department Care Team (Latest Contact Info) Description 05/26/2020 Scan [facility] HEALTH INFO SRVCS Scanned, Documents [...] Description 11/07/2024 9:40 AM CDT Office Visit [facility] Family Medicine - [place] [address] [place] [address] Franny Dolan PA-C 100 [place] [address] documented as of this encounter Procedures Procedure Name Priority Date/Time Associated Diagnosis Comments OUTSIDE LAB (SCAN ORDER) 05/26/2020 documented in this encounter Results * OUTSIDE LAB (SCAN) (05/26/2020) 05/26/2020 Narrative 05/26/2020 Ordered by an unspecified provider. us Documents Scanned SCANNING Final Result documented in this encounter Visit Diagnoses Not on filedocumented in this encounter Care Teams Lead Database Administrator Relationship Specialty Start Date End Date Alex Browne MD PCP - General 08/29/14 02/04/21 documented as of this encounter
--- OUTSIDE RECORDS SUMMARY | 2024-06-23 15:13 | XMS_ITS | Encounter Summary ---
Author Organization [facility] Address [address] [place] [address]. [place], [place] [phone] [place] [address] Care Team Providers Care Planer Off Bearer Name Role Phone Alex Browne MD Primary Care Provider Unav ailable Encounter Details Date Type Department Care Team (Latest Contact Info) Description 08/20/2019 Scan HEALTH INFO SRVCS Scanned, Documents Social [...] Description 11/07/2024 9:40 AM CDT Office Visit [facility] Family Medicine - [place] [address] [place] [phone] Franny Dolan PA-C 100 [place] [address] documented as of this encounter Visit Diagnoses Not on filedocumented in this encounter Care Teams Planer Off Bearer Relationship Specialty Start Date End Date Alex Browne MD PCP - General 08/29/14 02/04/21 documented as of this encounter
--- OUTSIDE RECORDS SUMMARY | 2024-06-23 15:13 | XMS_ITS | Encounter Summary ---
Author Organization [facility] Address [address] [place] [address]. [place], [place] [address] [place] [address] Care Team Providers Care Carburetor Specialist Name Role Phone Alex Browne MD Primary Care Provider Unav ailable Reason for Visit * Reason Comments Sleep Study (SCAN) Encounter Details Date Type Department Care Team (Late Contact Info) Description 04/12/2018 Scan HEALTH INFO SRVCS Scanned, Documents Sleep Study (SCAN) Social History Tobacco Use Types Packs/Day Years Used Date Smoking Tobacco: Never Assessed Comments Unknown Sex and Gender Information Value Date Recorded Sex Assigned at Not on file Legal Sex Female 6:13 PM CDT Gender Identity Not on file Sexual Orientation Not on file documented as of this encounter Plan of Treatment Upcoming Encounters Date Type Department Care Team ([facility] Contact Info) Description 11/07/2024 9:40 AM CDT Office Visit [facility] Family Medicine - [place] [address] [place] [address] Franny Dolan PA-C 100 [place] [address] documented as of this encounter Procedures Procedure Name Priority Date/Time Associated Diagnosis Comments SLEEP STUDY GENERIC (SCAN ORDER) 04/12/2018 documented in this encounter Results * SLEEP STUDY GENERIC (04/12/2018) 04/12/2018 Narrative 04/12/2018 Ordered by an unspecified provider. us Documents Scanned SCANNING Final Result documented in this encounter Visit Diagnoses Not on filedocumented in this encounter Care Teams Carburetor Specialist Relationship Specialty Start Date End Date Alex Browne MD PCP - General 08/29/14 02/04/21 documented as of this encounter
--- OUTSIDE RECORDS SUMMARY | 2024-06-23 15:13 | XMS_ITS | Encounter Summary ---
Author Organization [facility] Address [address] [place] [address]. [place], [place] [address] [place] [address] Care Team Providers Care Legal Examiner Name Role Phone Alex Browne MD Primary Care Provider Unav ailable Encounter Details Date Type Department Care Team (Latest Contact Info) Description 03/15/2020 Scan HEALTH INFO SRVCS Scanned, Documents Social [...] Description 11/07/2024 9:40 AM CDT Office Visit [facility] Family Medicine - [place] [address] [place] [address] Franny Dolan PA-C 100 [place] [address] documented as of this encounter Visit Diagnoses Not on filedocumented in this encounter Care Teams Legal Examiner Relationship Specialty Start Date End Date Alex Browne MD PCP - General 08/29/14 02/04/21 documented as of this encounter
--- OUTSIDE RECORDS SUMMARY | 2024-06-23 15:13 | XMS_ITS | Encounter Summary ---
Author Organization [facility] Address [address] [place] [address]. [place] [address] [place] [address] Care Team Providers Care Business Objects Analyst Name Role Phone Alex Browne MD Primary Care Provider Unav ailable Reason for Visit * Reason Comments Image (SCAN) Encounter Details Date Type Department Care Team (Latest Contact Info) Description 10/15/2018 Scan HEALTH INFO SRVCS Scanned, Documents Image [...] Description 11/07/2024 9:40 AM CDT Office Visit [facility] Family Medicine - [place] [address] [place] [address] Franny Dolan PA-C [address] [place] [address] documented as of this encounter Procedures Procedure Name Priority Date/Time Associated Diagnosis Comments IMAGE GENERIC 10/15/2018 IMAGE GENERIC 10/15/2018 IMAGE GENERIC 10/15/2018 IMAGE GENERIC 10/15/2018 documented in this encounter Results * IMAGE GENERIC (10/15/2018) Anatomical Region Laterality Modality Other 10/15/2018 Narrative 10/15/2018 Ordered by an unspecified provider. us Documents Scanned SCANNING Final Result * IMAGE GENERIC (10/15/2018) Anatomical Region Laterality Modality Other 10/15/2018 Narrative 10/15/2018 Ordered by an unspecified provider. us Documents Scanned SCANNING Final Result * IMAGE GENERIC (10/15/2018) Anatomical Region Laterality Modality Other 10/15/2018 Narrative 10/15/2018 Ordered by an unspecified provider. us Documents Scanned SCANNING Final Result * IMAGE GENERIC (10/15/2018) Anatomical Region Laterality Modality Other 10/15/2018 Narrative 10/15/2018 Ordered by an unspecified provider. us Documents Scanned SCANNING Final Result documented in this encounter Visit Diagnoses Not on filedocumented in this encounter Care Teams Business Objects Analyst Relationship Specialty Start Date End Date Alex Browne MD PCP - General 08/29/14 02/04/21 documented as of this encounter
--- OUTSIDE RECORDS SUMMARY | 2024-06-23 15:13 | XMS_ITS | Encounter Summary ---
Author Organization [facility] Address [address] [place] [address]. [place] [address] [place] [address] Care Team Providers Care Tablet Tester Name Role Phone Alex Browne MD Primary Care Provider Unav ailable Reason for Visit * Reason Comments Lab (SCAN) Encounter Details Date Type Department Care Team (Latest Contact Info) Description 03/31/2020 Scan [facility] HEALTH INFO SRVCS Scanned, Documents [...] [facility] Family [facility] - [place] 100 [place] [address] Franny Dolan PA-C 100 [place] [address] documented as of this encounter Procedures Procedure Name Priority Date/Time Associated Diagnosis Comments OUTSIDE LAB (SCAN ORDER) Routine 03/31/2020 documented in this encounter Results * OUTSIDE LAB (SCAN) (03/31/2020) HGB A1C 6.1 % [facility] ONBASE 03/31/2020 us Documents Scanned SCANNING Final Result [facility] ONBASE documented in this encounter Visit Diagnoses Not on filedocumented in this encounter Care Teams Tablet Tester Relationship Specialty Start Date End Date Alex Browne MD PCP - General 08/29/14 02/04/21 documented as of this encounter
--- OUTSIDE RECORDS SUMMARY | 2024-06-23 15:13 | XMS_ITS | Encounter Summary ---
Author Organization [facility] Address [address] [place] [address]. [place], [place] [address] [place] [address] Care Team Providers Care Tool Dispatcher Name Role Phone Alex Browne MD Primary Care Provider Unav ailable Reason for Visit * Reason Comments Lab (SCAN) Encounter Details Date Type Department Care Team (Latest Contact Info) Description 06/30/2019 Scan [facility] HEALTH INFO SRVCS Scanned, Documents [...] [facility] - [place] 100 [place] [address] Franny Dolan PA-C 100 [place] [address] documented as of this encounter Procedures Procedure Name Priority Date/Time Associated Diagnosis Comments OUTSIDE LAB (SCAN ORDER) 06/30/2019 documented in this encounter Results * OUTSIDE LAB (SCAN) (06/30/2019) 06/30/2019 Narrative 06/30/2019 Ordered by an unspecified provider. us Documents Scanned SCANNING Final Result documented in this encounter Visit Diagnoses Not on filedocumented in this encounter Care Teams Tool Dispatcher Relationship Specialty Start Date End Date Alex Browne MD PCP - General 08/29/14 02/04/21 documented as of this encounter
--- OUTSIDE RECORDS SUMMARY | 2024-06-23 15:13 | XMS_ITS | Encounter Summary ---
Author Organization [facility] Address [address] [place] [address]. [place], [place] [address] [place] [address] Care Team Providers Care Linen Room Custodian Name Role Phone Alex Browne MD Primary Care Provider Unav ailable Encounter Details Date Type Department Care Team (Latest Contact Info) Description 06/12/2020 Scan HEALTH INFO SRVCS Scanned, Documents Social [...] [facility] - [place] 100 [place] [address] Franny Dolan PA-C 100 [place] [address] documented as of this encounter Visit Diagnoses Not on filedocumented in this encounter Care Teams Linen Room Custodian Relationship Specialty Start Date End Date Alex Browne MD PCP - General 08/29/14 02/04/21 documented as of this encounter
--- OUTSIDE RECORDS SUMMARY | 2024-06-23 15:13 | XMS_ITS | Encounter Summary ---
Author Organization [facility] Address [address] [place] [address]. [place] [address] [place] [address] Care Team Providers Care Pharmaceutical Laboratory Technician Name Role Phone Alex Browne MD Primary Care Provider Unav ailable Reason for Visit * Reason Comments Lab (SCAN) Encounter Details Date Type Department Care Team (Latest Contact Info) Description 04/17/2019 Scan [facility] HEALTH INFO SRVCS Scanned, Documents [...] [facility] - [place] 100 [place] [address] Franny Dolan PA-C 100 [place] [address] documented as of this encounter Procedures Procedure Name Priority Date/Time Associated Diagnosis Comments OUTSIDE LAB (SCAN ORDER) Routine 04/17/2019 documented in this encounter Results * OUTSIDE LAB (SCAN) (04/17/2019) 04/17/2019 us Documents Scanned SCANNING Final Result [facility] [address] [place] [address] documented in this encounter Visit Diagnoses Not on filedocumented in this encounter Care Teams Pharmaceutical Laboratory Technician Relationship Specialty Start Date End Date Alex Browne MD PCP - General 08/29/14 02/04/21 documented as of this encounter
--- OUTSIDE RECORDS SUMMARY | 2024-06-23 15:13 | XMS_ITS | Encounter Summary ---
Author Organization [facility] Address [address] [place] [address]. [place], [place] [address] [place] [address] Care Team Providers Care Bonderite Operator Name Role Phone Alex Browne MD Primary Care Provider Unav ailable Encounter Details Date Type Department Care Team (Latest Contact Info) Description 09/29/2020 Scan HEALTH INFO SRVCS Scanned, Documents Social [...] [facility] Family Medicine - [place] 100 [place] [address] Franny Dolan PA-C 100 [place] [address] documented as of this encounter Visit Diagnoses Not on filedocumented in this encounter Care Teams Bonderite Operator Relationship Specialty Start Date End Date Alex Browne MD PCP - General 08/29/14 02/04/21 documented as of this encounter
--- OUTSIDE RECORDS SUMMARY | 2024-06-23 15:13 | XMS_ITS | Encounter Summary ---
Author Organization [facility] [place] Address [address] [place] [address]. [place], [place] [address] [place] [address] Care Team Providers Care Solar Sales Specialist Name Role Phone Alex Browne MD Primary Care Provider Unav ailable Reason for Visit * Reason Comments Procedure (SCAN) Encounter Details Date Type Department Care Team (Late Contact Info) Description 07/16/2019 Scan [facility] HEALTH INFO SRVCS Scanned, Documents Procedure (SCAN) Social History Tobacco Use Types [...] [facility] Family [facility] - [place] 100 [place] [address] Franny Dolan PA-C 100 [place] [address] documented as of this encounter Procedures Procedure Name Priority Date/Time Associated Diagnosis Comments PROCEDURE GENERIC (SCAN ORDER) 07/16/2019 documented in this encounter Results * PROCEDURE GENERIC (07/16/2019) 07/16/2019 Narrative 07/16/2019 Ordered by an unspecified provider. us Documents Scanned SCANNING Final Result documented in this encounter Visit Diagnoses Not on filedocumented in this encounter Care Teams Solar Sales Specialist Relationship Specialty Start Date End Date Alex Browne MD PCP - General 08/29/14 02/04/21 documented as of this encounter
--- OUTSIDE RECORDS SUMMARY | 2024-06-23 15:13 | XMS_ITS | Encounter Summary ---
Author Organization [facility] Address [address] [place] [address]. [place], [place] [address] [place] [address] Care Team Providers Care Lime Kiln Tender Name Role Phone Alex Browne MD Primary Care Provider Unav ailable Encounter Details Date Type Department Care Team (Latest Contact Info) Description 01/15/2019 Scan HEALTH INFO SRVCS Scanned, Documents Social [...] Description 11/07/2024 9:40 AM CDT Office Visit [facility] Family Medicine - [place] 100 [place] [address] Franny Dolan PA-C 100 [place] [address] documented as of this encounter Visit Diagnoses Not on filedocumented in this encounter Care Teams Lime Kiln Tender Relationship Specialty Start Date End Date Alex Browne MD PCP - General 08/29/14 02/04/21 documented as of this encounter
--- OUTSIDE RECORDS SUMMARY | 2024-06-23 15:13 | XMS_ITS | Encounter Summary ---
Author Organization [facility] Address [address] [place] [address]. [place], [place] [address] [place] [address] Care Team Providers Care Planer Stone Name Role Phone Alex Browne MD Primary Care Provider Unav ailable Encounter Details Date Type Department Care Team (Latest Contact Info) Description 04/05/2018 Scan HEALTH INFO SRVCS Scanned, Documents Social [...] Description 11/07/2024 9:40 AM CDT Office Visit [facility] Family Medicine - [place] 100 [place] [address] Franny Dolan PA-C 100 [place] [address] documented as of this encounter Visit Diagnoses Not on filedocumented in this encounter Care Teams Planer Stone Relationship Specialty Start Date End Date Alex Browne MD PCP - General 08/29/14 02/04/21 documented as of this encounter
--- OUTSIDE RECORDS SUMMARY | 2024-06-23 15:13 | XMS_ITS | Encounter Summary ---
Author Organization [facility] Address [address] [place] [address]. [place], [place] [address] [place] [address] Care Team Providers Care Bellmaker Name Role Phone Alex Browne MD Primary Care Provider Unav ailable Reason for Visit * Reason Comments Ultrasound (SCAN) Encounter Details Date Type Department Care Team (Late Contact Info) Description 02/27/2018 Scan HEALTH INFO SRVCS Scanned, Documents Ultrasound (SCAN) Social History Tobacco Use Types Packs/Day [...] [facility] Family Medicine - [place] 100 [place] [address] Franny Dolan PA-C 100 [place] [address] documented as of this encounter Procedures Procedure Name Priority Date/Time Associated Diagnosis Comments ULTRASOUND GENERIC (SCAN ORDER) 02/27/2018 documented in this encounter Results * ULTRASOUND GENERIC (02/27/2018) Anatomical Region Laterality Modality Other 02/27/2018 Narrative 02/27/2018 Ordered by an unspecified provider. us Documents Scanned SCANNING Final Result documented in this encounter Visit Diagnoses Not on filedocumented in this encounter Care Teams Bellmaker Relationship Specialty Start Date End Date Alex Browne MD PCP - General 08/29/14 02/04/21 documented as of this encounter
--- OUTSIDE RECORDS SUMMARY | 2024-06-23 15:13 | XMS_ITS | Encounter Summary ---
Author Organization [facility] Address [address] [place] [address]. [place] [address] [place] [address] Care Team Providers Care Epic Radiant Analyst Name Role Phone Alex Browne MD Primary Care Provider Unav ailable Reason for Visit * Reason Comments Lab (SCAN) Encounter Details Date Type Department Care Team (Latest Contact Info) Description 09/12/2019 Scan [facility] HEALTH INFO SRVCS Scanned, Documents [...] [facility] Family [facility] - [place] 100 [place] [address] Franny Dolan PA-C 100 [place] [address] documented as of this encounter Procedures Procedure Name Priority Date/Time Associated Diagnosis Comments OUTSIDE LAB (SCAN ORDER) Routine 09/12/2019 documented in this encounter Results * OUTSIDE LAB (SCAN) (09/12/2019) HGB A1C 9.3 % [facility] ONBASE 09/12/2019 us Documents Scanned SCANNING Final Result [facility] ONBASE documented in this encounter Visit Diagnoses Not on filedocumented in this encounter Care Teams Epic Radiant Analyst Relationship Specialty Start Date End Date Alex Browne MD PCP - General 08/29/14 02/04/21 documented as of this encounter
--- OUTSIDE RECORDS SUMMARY | 2024-06-23 15:13 | XMS_ITS | Encounter Summary ---
Author Organization [facility] Address [address] [place] [address]. [place] [address] [place] [address] Care Team Providers Care Bull Float Finisher Name Role Phone Alex Browne MD Primary Care Provider Unav ailable Reason for Visit * Reason Comments Lab (SCAN) Encounter Details Date Type Department Care Team (Latest Contact Info) Description 2020 Scan [facility] HEALTH INFO SRVCS Scanned, Documents [...] [facility] - [place] 100 [place] [address] Franny Dolan PA-C 100 [place] [address] documented as of this encounter Procedures Procedure Name Priority Date/Time Associated Diagnosis Comments OUTSIDE LAB COVID-19 (SCAN ORDER) Routine 2020 documented in this encounter Results * OUTSIDE LAB COVID-19 (SCAN) (2020) CORONAVIRUS SARS COV 2 PCR (RESP) NOT DETECTED NOT DETECTED [facility] ONBASE 2020 us Documents Scanned SCANNING Final Result [facility] ONBASE documented in this encounter Visit Diagnoses Not on filedocumented in this encounter Care Teams Bull Float Finisher Relationship Specialty Start Date End Date Alex Browne MD PCP - General 08/29/14 02/04/21 documented as of this encounter
--- OUTSIDE RECORDS SUMMARY | 2024-06-23 15:13 | XMS_ITS | Encounter Summary ---
Author Organization [facility] Address [address] [place] [address]. [place] [address] [place] [address] Care Team Providers Care It Web Development Consultant Name Role Phone Alex Browne MD Primary Care Provider Unav ailable Reason for Visit * Reason Comments Image (SCAN) Encounter Details Date Type Department Care Team (Latest Contact Info) Description 08/21/2020 Scan HEALTH INFO SRVCS Scanned, Documents Image [...] [facility] Family Medicine - [place] 100 [place] [address] Franny Dolan PA-C 100 [place] [address] documented as of this encounter Procedures Procedure Name Priority Date/Time Associated Diagnosis Comments IMAGE GENERIC 08/21/2020 IMAGE GENERIC 08/21/2020 documented in this encounter Results * IMAGE GENERIC (08/21/2020) Anatomical Region Laterality Modality Other 08/21/2020 Narrative 08/21/2020 Ordered by an unspecified provider. us Documents Scanned SCANNING Final Result * IMAGE GENERIC (08/21/2020) Anatomical Region Laterality Modality Other 08/21/2020 Narrative 08/21/2020 Ordered by an unspecified provider. us Documents Scanned SCANNING Final Result documented in this encounter Visit Diagnoses Not on filedocumented in this encounter Care Teams It Web Development Consultant Relationship Specialty Start Date End Date Alex Browne MD PCP - General 08/29/14 02/04/21 documented as of this encounter
--- OUTSIDE RECORDS SUMMARY | 2024-06-23 15:13 | XMS_ITS | Encounter Summary ---
Author Organization [facility] Address [address] [place] [address]. [place], [place] [address] [place] [address] Care Team Providers Care Ammonium Nitrate Crystallizer Name Role Phone Alex Browne MD Primary Care Provider Unav ailable Encounter Details Date Type Department Care Team (Latest Contact Info) Description 10/22/2018 Scan HEALTH INFO SRVCS Scanned, Documents Social [...] [facility] - [place] 100 [place] [address] Franny Dolan PA-C 100 [place] [address] documented as of this encounter Visit Diagnoses Not on filedocumented in this encounter Care Teams Ammonium Nitrate Crystallizer Relationship Specialty Start Date End Date Alex Browne MD PCP - General 08/29/14 02/04/21 documented as of this encounter
--- OUTSIDE RECORDS SUMMARY | 2024-06-23 15:13 | XMS_ITS | Encounter Summary ---
Author Organization [facility] Address [address] [place] [address]. [place], [place] [address] [place] [address] Care Team Providers Care Medical Referral Coordinator Name Role Phone Alex Browne MD Primary Care Provider Unav ailable Encounter Details Date Type Department Care Team (Latest Contact Info) Description 07/30/2019 Scan HEALTH INFO SRVCS Scanned, Documents Social [...] [facility] Family Medicine - [place] 100 [place] [address] Franny Dolan PA-C 100 [place] [address] documented as of this encounter Visit Diagnoses Not on filedocumented in this encounter Care Teams Medical Referral Coordinator Relationship Specialty Start Date End Date Alex Browne MD PCP - General 08/29/14 02/04/21 documented as of this encounter
--- OUTSIDE RECORDS SUMMARY | 2024-06-23 15:13 | XMS_ITS | Encounter Summary ---
Author Organization [facility] Address [address] [place] [address]. [place], [place] [address] [place] [address] Care Team Providers Care Marine Engine Driver Name Role Phone Alex Browne MD Primary Care Provider Unav ailable Encounter Details Date Type Department Care Team (Latest Contact Info) Description 03/29/2018 Scan HEALTH INFO SRVCS Scanned, Documents Social [...] Description 11/07/2024 9:40 AM CDT Office Visit [facility] Family Medicine - [place] 100 [place] [address] Franny Dolan PA-C 100 [place] [address] documented as of this encounter Visit Diagnoses Not on filedocumented in this encounter Care Teams Marine Engine Driver Relationship Specialty Start Date End Date Alex Browne MD PCP - General 08/29/14 02/04/21 documented as of this encounter
--- OUTSIDE RECORDS SUMMARY | 2024-06-23 15:13 | XMS_ITS | Encounter Summary ---
Author Organization [facility] Address [address] [place] [address]. [place], [place] [address] [place] [address] Care Team Providers Care Reed Polisher Name Role Phone Alex Browne MD Primary Care Provider Unav ailable Encounter Details Date Type Department Care Team (Latest Contact Info) Description 12/02/2019 Scan HEALTH INFO SRVCS Scanned, Documents Social [...] Description 11/07/2024 9:40 AM CDT Office Visit [facility] Family Medicine - [place] 100 [place] [address] Franny Dolan PA-C 100 [place] [address] documented as of this encounter Visit Diagnoses Not on filedocumented in this encounter Care Teams Reed Polisher Relationship Specialty Start Date End Date Alex Browne MD PCP - General 08/29/14 02/04/21 documented as of this encounter
--- OUTSIDE RECORDS SUMMARY | 2024-06-23 15:13 | XMS_ITS | Encounter Summary ---
Author Organization [facility] Address [address] [place] [address]. [place], [place] [address] [place] [address] Care Team Providers Care Roll Scale Man Name Role Phone Alex Browne MD Primary Care Provider Unav ailable Reason for Visit * Reason Comments Sleep Study (SCAN) Encounter Details Date Type Department Care Team (Late Contact Info) Description 04/18/2018 Scan HEALTH INFO SRVCS Scanned, Documents Sleep [...] Upcoming Encounters Date Type Department Care Team ([facility] Contact Info) Description 11/07/2024 9:40 AM CDT Office Visit [facility] Family Medicine - [place] 100 [place] [address] Franny Dolan PA-C 100 [place] [address] documented as of this encounter Procedures Procedure Name Priority Date/Time Associated Diagnosis Comments SLEEP STUDY GENERIC (SCAN ORDER) 04/18/2018 documented in this encounter Results * SLEEP STUDY GENERIC (04/18/2018) 04/18/2018 Narrative 04/18/2018 Ordered by an unspecified provider. us Documents Scanned SCANNING Final Result documented in this encounter Visit Diagnoses Not on filedocumented in this encounter Care Teams Roll Scale Man Relationship Specialty Start Date End Date Alex Browne MD PCP - General 08/29/14 02/04/21 documented as of this encounter
--- OUTSIDE RECORDS SUMMARY | 2024-06-23 15:13 | XMS_ITS | Encounter Summary ---
Author Organization [facility] Address [address] [place] [address]. [place], [place] [address] [place] [address] Care Team Providers Care Circular Ripsaw Operator Name Role Phone Alex Browne MD Primary Care Provider Unav ailable Encounter Details Date Type Department Care Team (Latest Contact Info) Description 06/13/2018 Scan HEALTH INFO SRVCS Scanned, Documents Social [...] Description 11/07/2024 9:40 AM CDT Office Visit [facility] Family Medicine - [place] 100 [place] [address] Franny Dolan PA-C 100 [place] [address] documented as of this encounter Visit Diagnoses Not on filedocumented in this encounter Care Teams Circular Ripsaw Operator Relationship Specialty Start Date End Date Alex Browne MD PCP - General 08/29/14 02/04/21 documented as of this encounter
--- OUTSIDE RECORDS SUMMARY | 2024-06-23 15:13 | XMS_ITS | Encounter Summary ---
Author Organization [facility] Address [address] [place] [address]. [place], [place] [address] [place] [address] Care Team Providers Care Area Captain Name Role Phone Alex Browne MD Primary Care Provider Unav ailable Encounter Details Date Type Department Care Team (Latest Contact Info) Description 01/27/2020 Scan HEALTH INFO SRVCS Scanned, Documents Social [...] [facility] Family [facility] - [place] 100 [place] [address] Franny Dolan PA-C [address] [place] [address] documented as of this encounter Visit Diagnoses Not on filedocumented in this encounter Care Teams Area Captain Relationship Specialty Start Date End Date Alex Browne MD PCP - General 08/29/14 02/04/21 documented as of this encounter
--- OUTSIDE RECORDS SUMMARY | 2024-06-23 15:13 | XMS_ITS | Encounter Summary ---
Author Organization [facility] Address [address] [place] [address]. [place], [place] [address] [place] [address] Care Team Providers Care Asphalt Plant Laborer Name Role Phone Alex Browne MD Primary Care Provider Unav ailable Reason for Visit * Reason Comments Lab (SCAN) Encounter Details Date Type Department Care Team (Latest Contact Info) Description 09/04/2018 Scan MG HEALTH INFO SRVCS Scanned, Documents [...] 11/07/2024 9:40 AM CDT Office Visit [facility] Family Medicine - [place] 100 [place] [address] Franny Dolan PA-C 100 [place] [address] documented as of this encounter Procedures Procedure Name Priority Date/Time Associated Diagnosis Comments OUTSIDE LAB (SCAN ORDER) 09/04/2018 documented in this encounter Results * OUTSIDE LAB (SCAN) (09/04/2018) 09/04/2018 Narrative 09/04/2018 Ordered by an unspecified provider. us Documents Scanned SCANNING Final Result documented in this encounter Visit Diagnoses Not on filedocumented in this encounter Care Teams Asphalt Plant Laborer Relationship Specialty Start Date End Date Alex Browne MD PCP - General 08/29/14 02/04/21 documented as of this encounter
--- OUTSIDE RECORDS SUMMARY | 2024-06-23 15:13 | XMS_ITS | Encounter Summary ---
Author Organization [facility] Address [address] [place] [address]. [place] [address] [place] [address] Care Team Providers Care Sander Portable Machine Name Role Phone Alex Browne MD Primary Care Provider Unav ailable Reason for Visit * Reason Comments Lab (SCAN) Encounter Details Date Type Department Care Team (Latest Contact Info) Description 04/10/2018 Scan MG HEALTH INFO SRVCS Scanned, Documents [...] [facility] Family [facility] - [place] 100 [place] [address] Franny Dolan PA-C 100 [place] [address] documented as of this encounter Procedures Procedure Name Priority Date/Time Associated Diagnosis Comments OUTSIDE LAB (SCAN ORDER) 04/10/2018 OUTSIDE LAB (SCAN ORDER) 04/10/2018 documented in this encounter Results * OUTSIDE LAB (SCAN) (04/10/2018) 04/10/2018 Narrative 04/10/2018 Ordered by an unspecified provider. us Documents Scanned SCANNING Final Result * OUTSIDE LAB (SCAN) (04/10/2018) 04/10/2018 Narrative 04/10/2018 Ordered by an unspecified provider. us Documents Scanned SCANNING Final Result documented in this encounter Visit Diagnoses Not on filedocumented in this encounter Care Teams Sander Portable Machine Relationship Specialty Start Date End Date Alex Browne MD PCP - General 08/29/14 02/04/21 documented as of this encounter
--- OUTSIDE RECORDS SUMMARY | 2024-06-23 15:13 | XMS_ITS | Encounter Summary ---
Author Organization [facility] Address [address] [place] [address]. [place], [place] [address] [place] [address] Care Team Providers Care Sewing Machine Mechanic Name Role Phone Alex Browne MD Primary Care Provider Unav ailable Encounter Details Date Type Department Care Team (Latest Contact Info) Description 03/12/2018 Scan HEALTH INFO SRVCS Scanned, Documents Social [...] [facility] Family Medicine - [place] 100 [place] [address] Franny Dolan PA-C 100 [place] [address] documented as of this encounter Visit Diagnoses Not on filedocumented in this encounter Care Teams Sewing Machine Mechanic Relationship Specialty Start Date End Date Alex Browne MD PCP - General 08/29/14 02/04/21 documented as of this encounter
--- OUTSIDE RECORDS SUMMARY | 2024-06-23 15:13 | XMS_ITS | Encounter Summary ---
Author Organization [facility] Address [address] [place] [address]. [place], [place] [address] [place] [address] Care Team Providers Care Office Machine Repair Shop Supervisor Name Role Phone Alex Browne MD Primary Care Provider Unav ailable Reason for Visit * Reason Comments Lab (SCAN) Encounter Details Date Type Department Care Team (Latest Contact Info) Description 08/27/2019 Scan MG HEALTH INFO SRVCS Scanned, Documents [...] [facility] Family Medicine - [place] 100 [place] [address] Franny Dolan PA-C 100 [place] [address] documented as of this encounter Procedures Procedure Name Priority Date/Time Associated Diagnosis Comments OUTSIDE LAB (SCAN ORDER) 08/27/2019 documented in this encounter Results * OUTSIDE LAB (SCAN) (08/27/2019) 08/27/2019 Narrative 08/27/2019 Ordered by an unspecified provider. us Documents Scanned SCANNING Final Result documented in this encounter Visit Diagnoses Not on filedocumented in this encounter Care Teams Office Machine Repair Shop Supervisor Relationship Specialty Start Date End Date Alex Browne MD PCP - General 08/29/14 02/04/21 documented as of this encounter
--- OUTSIDE RECORDS SUMMARY | 2024-06-23 15:13 | XMS_ITS | Encounter Summary ---
Author Organization [facility] Address [address] [place] [address]. [place], [place] [address] [place] [address] Care Team Providers Care Seeing Eye Dog Trainer Name Role Phone Alex Browne MD Primary Care Provider Unav ailable Encounter Details Date Type Department Care Team (Latest Contact Info) Description 07/21/2020 Scan HEALTH INFO SRVCS Scanned, Documents Social [...] Description 11/07/2024 9:40 AM CDT Office Visit [facility] Family Medicine - [place] 100 [place] [address] Franny Dolan PA-C 100 [place] [address] documented as of this encounter Visit Diagnoses Not on filedocumented in this encounter Care Teams Seeing Eye Dog Trainer Relationship Specialty Start Date End Date Alex Browne MD PCP - General 08/29/14 02/04/21 documented as of this encounter
--- OUTSIDE RECORDS SUMMARY | 2024-06-23 15:13 | XMS_ITS | Encounter Summary ---
Author Organization [facility] Address [address] [place] [address]. [place], [place] [address] [place] [address] Care Team Providers Care Front Maker Lockstitch Name Role Phone Alex Browne MD Primary Care Provider Unav ailable Encounter Details Date Type Department Care Team (Latest Contact Info) Description 04/16/2019 Scan HEALTH INFO SRVCS Scanned, Documents Social [...] 9:40 AM CDT Office Visit [facility] Family Medicine - [place] 100 [place] [address] Franny Dolan PA-C 100 [place] [address] documented as of this encounter Visit Diagnoses Not on filedocumented in this encounter Care Teams Front Maker Lockstitch Relationship Specialty Start Date End Date Alex Browne MD PCP - General 08/29/14 02/04/21 documented as of this encounter
--- OUTSIDE RECORDS SUMMARY | 2024-06-23 15:13 | XMS_ITS | Encounter Summary ---
Author Organization [facility] Address [address] [place] [address]. [place], [place] [address] [place] [address] Care Team Providers Care Tank Builder Helper Name Role Phone Alex Browne MD Primary Care Provider Unav ailable Encounter Details Date Type Department Care Team (Latest Contact Info) Description 02/05/2018 Scan HEALTH INFO SRVCS Scanned, Documents Social [...] [facility] Family [facility] - [place] 100 [place] [address] Franny Dolan PA-C 100 [place] [address] documented as of this encounter Visit Diagnoses Not on filedocumented in this encounter Care Teams Tank Builder Helper Relationship Specialty Start Date End Date Alex Browne MD PCP - General 08/29/14 02/04/21 documented as of this encounter
--- OUTSIDE RECORDS SUMMARY | 2024-06-23 15:13 | XMS_ITS | Encounter Summary ---
Author Organization [facility] Address [address] [place] [address]. [place], [place] [address] [place] [address] Care Team Providers Care Sand Molder Name Role Phone Alex Browne MD Primary Care Provider Unav ailable Encounter Details Date Type Department Care Team (Latest Contact Info) Description 09/11/2018 Scan HEALTH INFO SRVCS Scanned, Documents Social [...] Description 11/07/2024 9:40 AM CDT Office Visit [facility] Family Medicine - [place] 100 [place] [address] Franny Dolan PA-C 100 [place] [address] documented as of this encounter Visit Diagnoses Not on filedocumented in this encounter Care Teams Sand Molder Relationship Specialty Start Date End Date Alex Browne MD PCP - General 08/29/14 02/04/21 documented as of this encounter
--- OUTSIDE RECORDS SUMMARY | 2024-06-23 15:13 | XMS_ITS | Encounter Summary ---
Author Organization [facility] Address [address] [place] [address]. [place], [place] [address] [place] [address] Care Team Providers Care Appliance Fixer Name Role Phone Alex Browne MD Primary Care Provider Unav ailable Reason for Visit * Reason Comments Image (SCAN) Encounter Details Date Type Department Care Team (Latest Contact Info) Description 10/03/2020 Scan HEALTH INFO SRVCS Scanned, Documents Image [...] [facility] - [place] 100 [place] [address] Franny Dolan PA-C 100 [place] [address] documented as of this encounter Procedures Procedure Name Priority Date/Time Associated Diagnosis Comments IMAGE GENERIC 10/03/2020 documented in this encounter Results * IMAGE GENERIC (10/03/2020) Anatomical Region Laterality Modality Other 10/03/2020 Narrative 10/03/2020 Ordered by an unspecified provider. us Documents Scanned SCANNING Final Result documented in this encounter Visit Diagnoses Not on filedocumented in this encounter Care Teams Appliance Fixer Relationship Specialty Start Date End Date Alex Browne MD PCP - General 08/29/14 02/04/21 documented as of this encounter
--- OUTSIDE RECORDS SUMMARY | 2024-06-23 15:13 | XMS_ITS | Encounter Summary ---
Author Organization [facility] Address [address] [place] [address]. [place], [place] [address] [place] [address] Care Team Providers Care Seafood Clerk Name Role Phone Alex Browne MD Primary Care Provider Unav ailable Encounter Details Date Type Department Care Team (Latest Contact Info) Description 07/26/2018 Scan HEALTH INFO SRVCS Scanned, Documents Social [...] Description 11/07/2024 9:40 AM CDT Office Visit [facility] Family Medicine - [place] 100 [place] [address] Franny Dolan PA-C 100 [place] [address] documented as of this encounter Visit Diagnoses Not on filedocumented in this encounter Care Teams Seafood Clerk Relationship Specialty Start Date End Date Alex Browne MD PCP - General 08/29/14 02/04/21 documented as of this encounter
--- OUTSIDE RECORDS SUMMARY | 2024-06-23 15:13 | XMS_ITS | Encounter Summary ---
Author Organization [facility] Address [address] [place] [address]. [place], [place] [address] [place] [address] Care Team Providers Care Filtration Plant Operator Name Role Phone Alex Browne MD Primary Care Provider Unav ailable Reason for Visit * Reason Comments Image (SCAN) Encounter Details Date Type Department Care Team (Latest Contact Info) Description 06/13/2019 Scan HEALTH INFO SRVCS Scanned, Documents Image [...] [facility] - [place] 100 [place] [address] Franny Dolan PA-C 100 [place] [address] documented as of this encounter Procedures Procedure Name Priority Date/Time Associated Diagnosis Comments IMAGE GENERIC 06/13/2019 documented in this encounter Results * IMAGE GENERIC (06/13/2019) Anatomical Region Laterality Modality Other 06/13/2019 Narrative 06/13/2019 Ordered by an unspecified provider. us Documents Scanned SCANNING Final Result documented in this encounter Visit Diagnoses Not on filedocumented in this encounter Care Teams Filtration Plant Operator Relationship Specialty Start Date End Date Alex Browne MD PCP - General 08/29/14 02/04/21 documented as of this encounter
--- OUTSIDE RECORDS SUMMARY | 2024-06-23 15:13 | XMS_ITS | Encounter Summary ---
Author Organization [facility] Address [address] [place] [address]. [place], [place] [address] [place] [address] Care Team Providers Care Field Sampling Technician Name Role Phone Alex Browne MD Primary Care Provider Unav ailable Encounter Details Date Type Department Care Team (Latest Contact Info) Description 09/30/2020 Scan HEALTH INFO SRVCS Scanned, Documents Social [...] [facility] Family Medicine - [place] 100 [place] [address] Franny Dolan PA-C 100 [place] [address] documented as of this encounter Visit Diagnoses Not on filedocumented in this encounter Care Teams Field Sampling Technician Relationship Specialty Start Date End Date Alex Browne MD PCP - General 08/29/14 02/04/21 documented as of this encounter
--- OUTSIDE RECORDS SUMMARY | 2024-06-23 15:13 | XMS_ITS | Encounter Summary ---
Author Organization [facility] Address [address] [place] [address]. [place], [place] [address] [place] [address] Care Team Providers Care Operation Research Analyst Name Role Phone Alex Browne MD Primary Care Provider Unav ailable Encounter Details Date Type Department Care Team (Latest Contact Info) Description 07/10/2019 Scan HEALTH INFO SRVCS Scanned, Documents Social [...] 11/07/2024 9:40 AM CDT Office Visit [facility] Family Medicine - [place] 100 [place] [address] Franny Dolan PA-C 100 [place] [address] documented as of this encounter Visit Diagnoses Not on filedocumented in this encounter Care Teams Operation Research Analyst Relationship Specialty Start Date End Date Alex Browne MD PCP - General 08/29/14 02/04/21 documented as of this encounter
--- OUTSIDE RECORDS SUMMARY | 2024-06-23 15:13 | XMS_ITS | Encounter Summary ---
Author Organization [facility] Address [address] [place] [address]. [place] [address] [place] [address] Care Team Providers Care Investigative Research Specialist Name Role Phone Alex Browne MD Primary Care Provider Unav ailable Reason for Visit * Reason Comments Image (SCAN) Encounter Details Date Type Department Care Team (Latest Contact Info) Description 09/19/2018 Scan MG HEALTH INFO SRVCS Scanned, Documents Image (SCAN) [...] [facility] Family [facility] - [place] 100 [place] [address] Franny Dolan PA-C 100 [place] [address] documented as of this encounter Procedures Procedure Name Priority Date/Time Associated Diagnosis Comments IMAGE GENERIC 09/19/2018 IMAGE GENERIC 09/19/2018 IMAGE GENERIC 09/19/2018 IMAGE GENERIC 09/19/2018 IMAGE GENERIC 09/19/2018 documented in this encounter Results * IMAGE GENERIC (09/19/2018) Anatomical Region Laterality Modality Other 09/19/2018 Narrative 09/19/2018 Ordered by an unspecified provider. us Documents Scanned SCANNING Final Result * IMAGE GENERIC (09/19/2018) Anatomical Region Laterality Modality Other 09/19/2018 Narrative 09/19/2018 Ordered by an unspecified provider. us Documents Scanned SCANNING Final Result * IMAGE GENERIC (09/19/2018) Anatomical Region Laterality Modality Other 09/19/2018 Narrative 09/19/2018 Ordered by an unspecified provider. us Documents Scanned SCANNING Final Result * IMAGE GENERIC (09/19/2018) Anatomical Region Laterality Modality Other 09/19/2018 Narrative 09/19/2018 Ordered by an unspecified provider. us Documents Scanned SCANNING Final Result * IMAGE GENERIC (09/19/2018) Anatomical Region Laterality Modality Other 09/19/2018 Narrative 09/19/2018 Ordered by an unspecified provider. us Documents Scanned SCANNING Final Result documented in this encounter Visit Diagnoses Not on filedocumented in this encounter Care Teams Investigative Research Specialist Relationship Specialty Start Date End Date Alex Browne MD PCP - General 08/29/14 02/04/21 documented as of this encounter
--- OUTSIDE RECORDS SUMMARY | 2024-06-23 15:13 | XMS_ITS | Encounter Summary ---
Author Organization [facility] Address [address] [place] [address]. [place], [place] [address] [place] [address] Care Team Providers Care Laborer Marine Terminal Name Role Phone Alex Browne MD Primary Care Provider Unav ailable Encounter Details Date Type Department Care Team (Latest Contact Info) Description 12/17/2018 Scan HEALTH INFO SRVCS Scanned, Documents Social [...] [facility] Family Medicine - [place] 100 [place] [address] Franny Dolan PA-C 100 [place] [address] documented as of this encounter Visit Diagnoses Not on filedocumented in this encounter Care Teams Laborer Marine Terminal Relationship Specialty Start Date End Date Alex Browne MD PCP - General 08/29/14 02/04/21 documented as of this encounter
--- OUTSIDE RECORDS SUMMARY | 2024-06-23 15:13 | XMS_ITS | Encounter Summary ---
Author Organization [facility] Address [address] [place] [address]. [place], [place] [address] [place] [address] Care Team Providers Care Rn Security Name Role Phone Alex Browne MD Primary Care Provider Unav ailable Encounter Details Date Type Department Care Team (Latest Contact Info) Description 11/15/2019 Scan HEALTH INFO SRVCS Scanned, Documents Social [...] [facility] Family Medicine - [place] 100 [place] [address] Franny Dolan PA-C 100 [place] [address] documented as of this encounter Visit Diagnoses Not on filedocumented in this encounter Care Teams Rn Security Relationship Specialty Start Date End Date Alex Browne MD PCP - General 08/29/14 02/04/21 documented as of this encounter
--- OUTSIDE RECORDS SUMMARY | 2024-06-23 15:13 | XMS_ITS | Encounter Summary ---
Author Organization [facility] Address [address] [place] [address]. [place], [place] [address] [place] [address] Care Team Providers Care Patient Representative Name Role Phone Alex Browne MD Primary Care Provider Unav ailable Encounter Details Date Type Department Care Team (Latest Contact Info) Description 01/06/2020 Scan HEALTH INFO SRVCS Scanned, Documents Social [...] [facility] Family Medicine - [place] 100 [place] [address] Franny Dolan PA-C 100 [place] [address] documented as of this encounter Visit Diagnoses Not on filedocumented in this encounter Care Teams Patient Representative Relationship Specialty Start Date End Date Alex Browne MD PCP - General 08/29/14 02/04/21 documented as of this encounter
--- OUTSIDE RECORDS SUMMARY | 2024-06-23 15:13 | XMS_ITS | Encounter Summary ---
Author Organization [facility] Address [address] [place] [address]. [place], [place] [address] [place] [address] Care Team Providers Care Ingot Buggy Operator Name Role Phone Alex Browne MD Primary Care Provider Unav ailable Reason for Visit * Reason Comments Lab (SCAN) Encounter Details Date Type Department Care Team (Latest Contact Info) Description 10/11/2018 Scan MG HEALTH INFO SRVCS Scanned, Documents [...] Description 11/07/2024 9:40 AM CDT Office Visit [facility] Family Medicine - [place] 100 [place] [address] Franny Dolan PA-C 100 [place] [address] documented as of this encounter Procedures Procedure Name Priority Date/Time Associated Diagnosis Comments OUTSIDE LAB (SCAN ORDER) 10/11/2018 documented in this encounter Results * OUTSIDE LAB (SCAN) (10/11/2018) 10/11/2018 Narrative 10/11/2018 Ordered by an unspecified provider. us Documents Scanned SCANNING Final Result documented in this encounter Visit Diagnoses Not on filedocumented in this encounter Care Teams Ingot Buggy Operator Relationship Specialty Start Date End Date Alex Browne MD PCP - General 08/29/14 02/04/21 documented as of this encounter
--- OUTSIDE RECORDS SUMMARY | 2024-06-23 15:13 | XMS_ITS | Encounter Summary ---
Author Organization [facility] Address [address] [place] [address]. [place], [place] [address] [place] [address] Care Team Providers Care Back Hand Name Role Phone Alex Browne MD Primary Care Provider Unav ailable Encounter Details Date Type Department Care Team (Latest Contact Info) Description 06/29/2020 Scan HEALTH INFO SRVCS Scanned, Documents Social [...] [facility] Family Medicine - [place] 100 [place] [address] Franny Dolan PA-C 100 [place] [address] documented as of this encounter Visit Diagnoses Not on filedocumented in this encounter Care Teams Back Hand Relationship Specialty Start Date End Date Alex Browne MD PCP - General 08/29/14 02/04/21 documented as of this encounter
--- OUTSIDE RECORDS SUMMARY | 2024-06-23 15:13 | XMS_ITS | Encounter Summary ---
Author Organization [facility] Address [address] [place] [address]. [place], [place] [address] [place] [address] Care Team Providers Care Stock Patcher Name Role Phone Alex Browne MD Primary Care Provider Unav ailable Encounter Details Date Type Department Care Team (Latest Contact Info) Description 08/19/2020 Scan HEALTH INFO SRVCS Scanned, Documents Social [...] [facility] Family [facility] - [place] 100 [place] [address] Franny Dolan PA-C 100 [place] [address] documented as of this encounter Visit Diagnoses Not on filedocumented in this encounter Care Teams Stock Patcher Relationship Specialty Start Date End Date Alex Browne MD PCP - General 08/29/14 02/04/21 documented as of this encounter
--- OUTSIDE RECORDS SUMMARY | 2024-06-23 15:14 | XMS_ITS | Encounter Summary ---
Author Organization [facility] Address [address] [place] [address]. [place] [address] [place] [address] Care Team Providers Care Receiving Specialist Name Role Phone Alex Browne MD Primary Care Provider Unav ailable Reason for Visit * Reason Comments Bone Density Report (SCAN) Encounter Details Date Type Department Care Team (Late Contact Info) Description 09/27/2016 Scan HEALTH INFO SRVCS Scanned, Documents Bone Density Report (SCAN) Social History Tobacco Use Types Packs/Day [...] Description 11/07/2024 9:40 AM CDT Office Visit [facility] Family Medicine - [place] 100 [place] [phone] Franny Dolan PA-C 100 [place] [address] documented as of this encounter Procedures Procedure Name Priority Date/Time Associated Diagnosis Comments BONE DENSITY GENERIC (SCAN ORDER) 09/27/2016 documented in this encounter Results * BONE DENSITY GENERIC (09/27/2016) Anatomical Region Laterality Modality Other 09/27/2016 Narrative 09/27/2016 Ordered by an unspecified provider. us Documents Scanned SCANNING Final Result documented in this encounter Visit Diagnoses Not on filedocumented in this encounter Care Teams Receiving Specialist Relationship Specialty Start Date End Date Alex Browne MD PCP - General 08/29/14 02/04/21 documented as of this encounter
--- OUTSIDE RECORDS SUMMARY | 2024-06-23 15:14 | XMS_ITS | Encounter Summary ---
Author Organization [facility] Address [address] [place] [address]. [place], [place] [address] [place] [address] Care Team Providers Care Cotton Factor Name Role Phone Alex Browne MD Primary Care Provider Unav ailable Encounter Details Date Type Department Care Team (Latest Contact Info) Description 02/08/2017 Scan HEALTH INFO SRVCS Scanned, Documents Social [...] [facility] Family Medicine - [place] 100 [place] [address] Franny Dolan PA-C 100 [place] [address] documented as of this encounter Visit Diagnoses Not on filedocumented in this encounter Care Teams Cotton Factor Relationship Specialty Start Date End Date Alex Browne MD PCP - General 08/29/14 02/04/21 documented as of this encounter
--- OUTSIDE RECORDS SUMMARY | 2024-06-23 15:14 | XMS_ITS | Encounter Summary ---
Author Organization [facility] Address [address] [place] [address]. [place], [place] [address] [place] [address] Care Team Providers Care Filter Tank Operator Name Role Phone Alex Browne MD Primary Care Provider Unav ailable Encounter Details Date Type Department Care Team (Latest Contact Info) Description 10/19/2017 Scan HEALTH INFO SRVCS Scanned, Documents Social [...] [facility] - [place] 100 [place] [address] Franny Dolan PA-C 100 [place] [address] documented as of this encounter Visit Diagnoses Not on filedocumented in this encounter Care Teams Filter Tank Operator Relationship Specialty Start Date End Date Alex Browne MD PCP - General 08/29/14 02/04/21 documented as of this encounter
--- OUTSIDE RECORDS SUMMARY | 2024-06-23 15:14 | XMS_ITS | Encounter Summary ---
Author Organization [facility] Address [address] [place] [address]. [place], [place] [address] [place] [address] Care Team Providers Care Warehouser Name Role Phone Alex Browne MD Primary Care Provider Unav ailable Reason for Visit * Reason Comments Image (SCAN) Encounter Details Date Type Department Care Team (Latest Contact Info) Description 06/17/2017 Scan MG HEALTH INFO SRVCS Scanned, Documents [...] 11/07/2024 9:40 AM CDT Office Visit [facility] Family Medicine - [place] 100 [place] [address] Franny Dolan PA-C 100 [place] [address] documented as of this encounter Procedures Procedure Name Priority Date/Time Associated Diagnosis Comments IMAGE GENERIC 06/17/2017 documented in this encounter Results * IMAGE GENERIC (06/17/2017) Anatomical Region Laterality Modality Other 06/17/2017 Narrative 06/17/2017 Ordered by an unspecified provider. us Documents Scanned SCANNING Final Result documented in this encounter Visit Diagnoses Not on filedocumented in this encounter Care Teams Warehouser Relationship Specialty Start Date End Date Alex Browne MD PCP - General 08/29/14 02/04/21 documented as of this encounter
--- OUTSIDE RECORDS SUMMARY | 2024-06-23 15:14 | XMS_ITS | Encounter Summary ---
Author Organization [facility] Address [address] [place] [address]. [place] [address] [place] [address] Care Team Providers Care Rolling Up Machine Operator Name Role Phone Alex Browne MD Primary Care Provider Unav ailable Reason for Visit * Reason Comments CT (SCAN) Image (SCAN) Encounter Details Date Type Department Care Team (Late Contact Info) Description 05/17/2017 Scan HEALTH INFO SRVCS Scanned, Documents CT (SCAN); Image (SCAN) Social History Tobacco Use Types [...] Description 11/07/2024 9:40 AM CDT Office Visit [facility] Family Medicine - [place] 100 [place] [phone] Franny Dolan PA-C 100 [place] [address] documented as of this encounter Procedures Procedure Name Priority Date/Time Associated Diagnosis Comments CT GENERIC 05/17/2017 IMAGE GENERIC 05/17/2017 documented in this encounter Results * IMAGE GENERIC (05/17/2017) Anatomical Region Laterality Modality Other 05/17/2017 Narrative 05/17/2017 Ordered by an unspecified provider. us Documents Scanned SCANNING Final Result * CT GENERIC (05/17/2017) Anatomical Region Laterality Modality Other 05/17/2017 Narrative 05/17/2017 Ordered by an unspecified provider. us Documents Scanned SCANNING Final Result documented in this encounter Visit Diagnoses Not on filedocumented in this encounter Care Teams Rolling Up Machine Operator Relationship Specialty Start Date End Date Alex Browne MD PCP - General 08/29/14 02/04/21 documented as of this encounter
--- OUTSIDE RECORDS SUMMARY | 2024-06-23 15:14 | XMS_ITS | Encounter Summary ---
Author Organization [facility] Address [address] [place] [address]. [place] [address] [place] [address] Care Team Providers Care Residence Director Name Role Phone Alex Browne MD Primary Care Provider Unav ailable Encounter Details Date Type Department Care Team (Late st Contact Info) Description 02/22/[address] [facility] [address] Ganesh Shepherd MD [facility] [address] [address] Social History Tobacco Use Types Packs/Day Years [...] [facility] - [place] 100 [place] [phone] Franny Dolan PA-C 100 [place] [address] documented as of this encounter Visit Diagnoses Not on filedocumented in this encounter Care Teams Residence Director Relationship Specialty Start Date End Date Alex Browne MD PCP - General 08/29/14 02/04/21 documented as of this encounter
--- OUTSIDE RECORDS SUMMARY | 2024-06-23 15:14 | XMS_ITS | Encounter Summary ---
Author Organization [facility] Address [address] [place] [address]. [place] [address] [place] [address] Care Team Providers Care Airport Manager Name Role Phone Alex Browne MD Primary Care Provider Unav ailable Reason for Visit * Reason Comments Lab (SCAN) Pathology (SCAN) Encounter Details Date Type Department Care Team (Late Contact Info) Description 09/02/2016 Scan HEALTH INFO SRVCS Scanned, Documents Lab (SCAN); Pathology (SCAN) Social History Tobacco Use Types Packs/Day [...] [facility] Family Medicine - [place] 100 [place] [phone] Franny Dolan PA-C 100 [place] [address] documented as of this encounter Procedures Procedure Name Priority Date/Time Associated Diagnosis Comments PATHOLOGY GENERIC (SCAN ORDER) 09/02/2016 OUTSIDE LAB (SCAN ORDER) 09/02/2016 documented in this encounter Results * PATHOLOGY GENERIC (09/02/2016) 09/02/2016 Narrative 09/02/2016 Ordered by an unspecified provider. us Documents Scanned SCANNING Final Result * OUTSIDE LAB (SCAN) (09/02/2016) 09/02/2016 Narrative 09/02/2016 Ordered by an unspecified provider. us Documents Scanned SCANNING Final Result documented in this encounter Visit Diagnoses Not on filedocumented in this encounter Care Teams Airport Manager Relationship Specialty Start Date End Date Alex Browne MD PCP - General 08/29/14 02/04/21 documented as of this encounter
--- OUTSIDE RECORDS SUMMARY | 2024-06-23 15:14 | XMS_ITS | Encounter Summary ---
Author Organization [facility] Address [address] [place] [address]. [place], [place] [address] [place] [address] Care Team Providers Care Orchestra Leader Name Role Phone Alex Browne MD Primary Care Provider Unav ailable Encounter Details Date Type Department Care Team (Latest Contact Info) Description 11/02/2017 Scan HEALTH INFO SRVCS Scanned, Documents Social [...] [facility] Family Medicine - [place] 100 [place] [address] Franny Dolan PA-C 100 [place] [address] documented as of this encounter Visit Diagnoses Not on filedocumented in this encounter Care Teams Orchestra Leader Relationship Specialty Start Date End Date Alex Browne MD PCP - General 08/29/14 02/04/21 documented as of this encounter
--- OUTSIDE RECORDS SUMMARY | 2024-06-23 15:14 | XMS_ITS | Encounter Summary ---
Author Organization [facility] Address [address] [place] [address]. [place], [place] [address] [place] [address] Care Team Providers Care Texturing Machine Fixer Name Role Phone Alex Browne MD Primary Care Provider Unav ailable Encounter Details Date Type Department Care Team (Latest Contact Info) Description 09/12/2016 Scan HEALTH INFO SRVCS Scanned, Documents Social [...] Office Visit [facility] Family Medicine - [place] 100 [place] [address] Franny Dolan PA-C 100 [place] [address] documented as of this encounter Visit Diagnoses Not on filedocumented in this encounter Care Teams Texturing Machine Fixer Relationship Specialty Start Date End Date Alex Browne MD PCP - General 08/29/14 02/04/21 documented as of this encounter
--- OUTSIDE RECORDS SUMMARY | 2024-06-23 15:14 | XMS_ITS | Encounter Summary ---
Author Organization [facility] Address [address] [place] [address]. [place] [address] [place] [address] Care Team Providers Care Vending Machine Collector Name Role Phone Alex Browne MD Primary Care Provider Unav ailAlex Baig MD Primary Care Provider Unav ailable Alex Browne MD Primary Care Provider Unav ailable Encounter Details Date Type Department Care Team (Late Contact Info) Description 03/22/2013 Abstract [facility] [place] [address] Alex Browne MD Social History Tobacco Use [...] [facility] - [place] 100 [place] [phone] Franny Dolan PA-C 100 [place] [address] documented as of this encounter Visit Diagnoses Diagnosis Screening for osteoporosis Special screening for osteoporosis documented in this encounter Care Teams Vending Machine Collector Relationship Specialty Start Date End Date Alex Browne MD PCP - General 08/29/14 02/04/21 Alex Browne MD PCP - General 05/08/13 08/28/14 Alex Browne MD PCP - General 03/22/13 05/07/13 documented as of this encounter
--- OUTSIDE RECORDS SUMMARY | 2024-06-23 15:14 | XMS_ITS | Encounter Summary ---
Author Organization [facility] Address [address] [place] [address]. [place] [address] [place] [address] Care Team Providers Care Voip Network Engineer Name Role Phone Alex Browne MD Primary Care Provider Unav Alex Ren MD Primary Care Provider Unav ailable Alex Browne MD Primary Care Provider Unav ailable Alex Browne MD Primary Care Provider Unav ailable Reason for Visit * Reason Comments Ultrasound (SCAN) Encounter Details Date Type Department Care Team (Late st Contact Info) Description 05/16/2012 Scan HEALTH INFO SRVCS Scanned, Documents Ultrasound [...] [facility] Family [facility] - [place] 100 [place] [phone] Franny Dolan PA-C 100 [place] [address] documented as of this encounter Procedures Procedure Name Priority Date/Time Associated Diagnosis Comments ULTRASOUND GENERIC (SCAN ORDER) 05/16/2012 documented in this encounter Results * ULTRASOUND GENERIC (05/16/2012) Anatomical Region Laterality Modality Other 05/16/2012 Narrative 05/16/2012 Ordered by an unspecified provider. us Documents Scanned SCANNING Final Result documented in this encounter Visit Diagnoses Not on filedocumented in this encounter Care Teams Voip Network Engineer Relationship Specialty Start Date End Date Alex Browne MD PCP - General 08/29/14 02/04/21 Alex Browne MD PCP - General 05/08/13 08/28/14 Alex Browne MD PCP - General 03/22/13 05/07/13 Alex Browne MD PCP - General 03/01/13 03/21/13 documented as of this encounter
--- OUTSIDE RECORDS SUMMARY | 2024-06-23 15:14 | XMS_ITS | Encounter Summary ---
Author Organization [facility] Address [address] [place] [address]. [place], [place] [address] [place] [address] Care Team Providers Care Hogshead Packer Name Role Phone Alex Browne MD Primary Care Provider Unav ailable Encounter Details Date Type Department Care Team (Latest Contact Info) Description 04/27/2017 Scan HEALTH INFO SRVCS Scanned, Documents Social [...] Description 11/07/2024 9:40 AM CDT Office Visit [facility] Family Medicine - [place] 100 [place] [address] Franny Dolan PA-C 100 [place] [address] documented as of this encounter Visit Diagnoses Not on filedocumented in this encounter Care Teams Hogshead Packer Relationship Specialty Start Date End Date Alex Browne MD PCP - General 08/29/14 02/04/21 documented as of this encounter
--- OUTSIDE RECORDS SUMMARY | 2024-06-23 15:14 | XMS_ITS | Encounter Summary ---
Author Organization [facility] Address [address] [place] [address]. [place], [place] [address] [place] [address] Care Team Providers Care Head Of Data Name Role Phone Alex Browne MD Primary Care Provider Unav ailable Encounter Details Date Type Department Care Team (Latest Contact Info) Description 11/27/2017 Scan HEALTH INFO SRVCS Scanned, Documents Social [...] [facility] Family [facility] - [place] 100 [place] [address] Franny Dolan PA-C 100 [place] [address] documented as of this encounter Visit Diagnoses Not on filedocumented in this encounter Care Teams Head Of Data Relationship Specialty Start Date End Date Alex Browne MD PCP - General 08/29/14 02/04/21 documented as of this encounter
--- OUTSIDE RECORDS SUMMARY | 2024-06-23 15:14 | XMS_ITS | Encounter Summary ---
Author Organization [facility] Address [address] [place] [address]. [place], [place] [address] [place] [address] Care Team Providers Care Civil Engineering Drafter Name Role Phone Alex Browne MD Primary Care Provider Unav ailable Encounter Details Date Type Department Care Team (Latest Contact Info) Description 05/03/2017 Scan HEALTH INFO SRVCS Scanned, Documents Social [...] [facility] - [place] 100 [place] [address] Franny Dolan PA-C 100 [place] [address] documented as of this encounter Visit Diagnoses Not on filedocumented in this encounter Care Teams Civil Engineering Drafter Relationship Specialty Start Date End Date Alex Browne MD PCP - General 08/29/14 02/04/21 documented as of this encounter
--- OUTSIDE RECORDS SUMMARY | 2024-06-23 15:14 | XMS_ITS | Encounter Summary ---
Author Organization [facility] Address [address] [place] [address]. [place], [place] [address] [place] [address] Care Team Providers Care Health Policy Analyst Name Role Phone Alex Browne MD Primary Care Provider Unav ailable Reason for Visit * Reason Comments Lab (SCAN) Encounter Details Date Type Department Care Team (Latest Contact Info) Description 05/04/2017 Scan MG HEALTH INFO SRVCS Scanned, Documents [...] Description 11/07/2024 9:40 AM CDT Office Visit [facility] Family Medicine - [place] 100 [place] [address] Franny Dolan PA-C 100 [place] [address] documented as of this encounter Procedures Procedure Name Priority Date/Time Associated Diagnosis Comments OUTSIDE LAB (SCAN ORDER) 05/04/2017 documented in this encounter Results * OUTSIDE LAB (SCAN) (05/04/2017) 05/04/2017 Narrative 05/04/2017 Ordered by an unspecified provider. us Documents Scanned SCANNING Final Result documented in this encounter Visit Diagnoses Not on filedocumented in this encounter Care Teams Health Policy Analyst Relationship Specialty Start Date End Date Alex Browne MD PCP - General 08/29/14 02/04/21 documented as of this encounter
--- OUTSIDE RECORDS SUMMARY | 2024-06-23 15:14 | XMS_ITS | Encounter Summary ---
Author Organization [facility] Address [address] [place] [address]. [place] [address] [place] [address] Care Team Providers Care Editor Greeting Card Name Role Phone Alex Browne MD Primary Care Provider Unav ailable Alex Browne MD Primary Care Provider Unav ailable Encounter Details Date Type Department Care Team (Late st Contact Info) Description 05/08/2013 Abstract [place] [address] Alex Browne MD Social History Tobacco Use [...] [facility] Family Medicine - [place] 100 [place] [phone] Franny Dolan PA-C 100 [place] [address] documented as of this encounter Visit Diagnoses Diagnosis Benign essential hypertension Essential hypertension, benign documented in this encounter Care Teams Editor Greeting Card Relationship Specialty Start Date End Date Alex Browne MD PCP - General 08/29/14 02/04/21 Alex Browne MD PCP - General 05/08/13 08/28/14 documented as of this encounter
--- OUTSIDE RECORDS SUMMARY | 2024-06-23 15:14 | XMS_ITS | Encounter Summary ---
Author Organization [facility] Address [address] [place] [address]. [place] [address] [place] [address] Care Team Providers Care Head Bucker Name Role Phone Alex Browne MD Primary Care Provider Unav Alex Ren MD Primary Care Provider Unav ailable Alex Browne MD Primary Care Provider Unav ailable Alex Browne MD Primary Care Provider Unav ailable Encounter Details Date Type Department Care Team (Late Contact Info) Description 03/01/2013 Abstract [place] [address] Alex Browne MD Social History Tobacco Use [...] 11/07/2024 9:40 AM CDT Office Visit [facility] Family Medicine - [place] 100 [place] [phone] Franny Dolan PA-C 100 [place] [address] documented as of this encounter Visit Diagnoses Diagnosis Mixed hyperlipidemia documented in this encounter Care Teams Head Bucker Relationship Specialty Start Date End Date Alex Browne MD PCP - General 08/29/14 02/04/21 Alex Browne MD PCP - General 05/08/13 08/28/14 Alex Browne MD PCP - General 03/22/13 05/07/13 Alex Browne MD PCP - General 03/01/13 03/21/13 documented as of this encounter
--- OUTSIDE RECORDS SUMMARY | 2024-06-23 15:14 | XMS_ITS | Encounter Summary ---
Author Organization [facility] Address [address] [place] [address]. [place] [address] [place] [address] Care Team Providers Care Rn Clinical Appeals Name Role Phone Alex Browne MD Primary Care Provider Unav ailable Reason for Visit * Reason Comments Lab (SCAN) Encounter Details Date Type Department Care Team (Latest Contact Info) Description 01/29/2018 Scan MG HEALTH INFO SRVCS Scanned, Documents [...] [facility] - [place] 100 [place] [address] Franny Dolan PA-C 100 [place] [address] documented as of this encounter Procedures Procedure Name Priority Date/Time Associated Diagnosis Comments OUTSIDE LAB (SCAN ORDER) 01/29/2018 OUTSIDE LAB (SCAN ORDER) 01/29/2018 documented in this encounter Results * OUTSIDE LAB (SCAN) (01/29/2018) 01/29/2018 Narrative 01/29/2018 Ordered by an unspecified provider. us Documents Scanned SCANNING Final Result * OUTSIDE LAB (SCAN) (01/29/2018) 01/29/2018 Narrative 01/29/2018 Ordered by an unspecified provider. us Documents Scanned SCANNING Final Result documented in this encounter Visit Diagnoses Not on filedocumented in this encounter Care Teams Rn Clinical Appeals Relationship Specialty Start Date End Date Alex Browne MD PCP - General 08/29/14 02/04/21 documented as of this encounter
--- OUTSIDE RECORDS SUMMARY | 2024-06-23 15:14 | XMS_ITS | Encounter Summary ---
Author Organization [facility] Address [address] [place] [address]. [place], [place] [address] [place] [address] Care Team Providers Care Crop Duster Helper Name Role Phone Alex Browne MD Primary Care Provider Unav ailable Reason for Visit * Reason Comments Lab (SCAN) Encounter Details Date Type Department Care Team (Latest Contact Info) Description 07/28/2017 Scan MG HEALTH INFO SRVCS Scanned, Documents [...] [facility] - [place] 100 [place] [address] Franny Dolan PA-C 100 [place] [address] documented as of this encounter Procedures Procedure Name Priority Date/Time Associated Diagnosis Comments OUTSIDE LAB (SCAN ORDER) 07/28/2017 documented in this encounter Results * OUTSIDE LAB (SCAN) (07/28/2017) 07/28/2017 Narrative 07/28/2017 Ordered by an unspecified provider. us Documents Scanned SCANNING Final Result documented in this encounter Visit Diagnoses Not on filedocumented in this encounter Care Teams Crop Duster Helper Relationship Specialty Start Date End Date Alex Browne MD PCP - General 08/29/14 02/04/21 documented as of this encounter
--- OUTSIDE RECORDS SUMMARY | 2024-06-23 15:14 | XMS_ITS | Encounter Summary ---
Author Organization [facility] Address [address] [place] [address]. [place], [place] [address] [place] [address] Care Team Providers Care Motor Vehicle Light Assembler Name Role Phone Alex Browne MD Primary Care Provider Unav ailable Encounter Details Date Type Department Care Team (Latest Contact Info) Description 01/09/2017 Scan HEALTH INFO SRVCS Scanned, Documents Social [...] [facility] - [place] 100 [place] [address] Franny Dolan PA-C 100 [place] [address] documented as of this encounter Visit Diagnoses Not on filedocumented in this encounter Care Teams Motor Vehicle Light Assembler Relationship Specialty Start Date End Date Alex Browne MD PCP - General 08/29/14 02/04/21 documented as of this encounter
--- OUTSIDE RECORDS SUMMARY | 2024-06-23 15:14 | XMS_ITS | Encounter Summary ---
Author Organization [facility] Address [address] [place] [address]. [place], [place] [address] [place] [address] Care Team Providers Care Election Supervisor Name Role Phone Alex Browne MD Primary Care Provider Unav ailable Encounter Details Date Type Department Care Team (Latest Contact Info) Description 04/05/2017 Scan HEALTH INFO SRVCS Scanned, Documents Social [...] [facility] Family Medicine - [place] 100 [place] [address] Franny Dolan PA-C 100 [place] [address] documented as of this encounter Visit Diagnoses Not on filedocumented in this encounter Care Teams Election Supervisor Relationship Specialty Start Date End Date Alex Browne MD PCP - General 08/29/14 02/04/21 documented as of this encounter
--- OUTSIDE RECORDS SUMMARY | 2024-06-23 15:14 | XMS_ITS | Encounter Summary ---
Author Organization [facility] Address [address] [place] [address]. [place], [place] [address] [place] [address] Care Team Providers Care Training Manager Name Role Phone Alex Browne MD Primary Care Provider Unav ailable Encounter Details Date Type Department Care Team (Latest Contact Info) Description 08/21/2017 Scan HEALTH INFO SRVCS Scanned, Documents Social [...] [facility] Family [facility] - [place] 100 [place] [address] Franny Dolan PA-C 100 [place] [address] documented as of this encounter Visit Diagnoses Not on filedocumented in this encounter Care Teams Training Manager Relationship Specialty Start Date End Date Alex Browne MD PCP - General 08/29/14 02/04/21 documented as of this encounter
--- OUTSIDE RECORDS SUMMARY | 2024-06-23 15:14 | XMS_ITS | Encounter Summary ---
Author Organization [facility] Address [address] [place] [address]. [place], [place] [address] [place] [address] Care Team Providers Care House Admin Name Role Phone Alex Browne MD Primary Care Provider Unav ailable Reason for Visit * Reason Comments Lab (SCAN) Encounter Details Date Type Department Care Team (Latest Contact Info) Description 06/14/2017 Scan MG HEALTH INFO SRVCS Scanned, Documents [...] 11/07/2024 9:40 AM CDT Office Visit [facility] Family Medicine - [place] 100 [place] [address] Franny Dolan PA-C 100 [place] [address] documented as of this encounter Procedures Procedure Name Priority Date/Time Associated Diagnosis Comments OUTSIDE LAB (SCAN ORDER) 06/14/2017 documented in this encounter Results * OUTSIDE LAB (SCAN) (06/14/2017) 06/14/2017 Narrative 06/14/2017 Ordered by an unspecified provider. us Documents Scanned SCANNING Final Result documented in this encounter Visit Diagnoses Not on filedocumented in this encounter Care Teams House Admin Relationship Specialty Start Date End Date Alex Browne MD PCP - General 08/29/14 02/04/21 documented as of this encounter
--- OUTSIDE RECORDS SUMMARY | 2024-06-23 15:14 | XMS_ITS | Encounter Summary ---
Author Organization [facility] Address [facility] [place] [address] [place] [address] Care Team Providers Care Cold Press Operator Name Role Phone Alex Browne MD Primary Care Provider Unav ailAlex Baig MD Primary Care Provider Unav ailable Alex Browne MD Primary Care Provider Unav ailable Alex Browne MD Primary Care Provider Unav ailable Encounter Details Date Type Department Care Team (Late st Contact Info) Description 03/01/2013 Abstract [place] [address] Valentino Hamm MD [address] [place] [address] Social History Tobacco Use Types Packs/Day Years [...] [facility] Family Medicine - [place] 100 [place] [phone] Franny Dolan PA-C 100 [place] [address] documented as of this encounter Visit Diagnoses Diagnosis Pre-operative examination Preoperative examination, unspecified documented in this encounter Care Teams Cold Press Operator Relationship Specialty Start Date End Date Alex Browne MD PCP - General 08/29/14 02/04/21 Alex Browne MD PCP - General 05/08/13 08/28/14 Alex Browne MD PCP - General 03/22/13 05/07/13 Alex Browne MD PCP - General 03/01/13 03/21/13 documented as of this encounter
--- OUTSIDE RECORDS SUMMARY | 2024-06-23 15:14 | XMS_ITS | Encounter Summary ---
Author Organization [facility] Address [address] [place] [address]. [place], [place] [address] [place] [address] Care Team Providers Care Family Day Care Provider Name Role Phone Alex Browne MD Primary Care Provider Unav ailable Encounter Details Date Type Department Care Team (Latest Contact Info) Description 05/25/2017 Scan HEALTH INFO SRVCS Scanned, Documents Social [...] Description 11/07/2024 9:40 AM CDT Office Visit [facility] Family Medicine - [place] 100 [place] [address] Franny Dolan PA-C 100 [place] [address] documented as of this encounter Visit Diagnoses Not on filedocumented in this encounter Care Teams Family Day Care Provider Relationship Specialty Start Date End Date Alex Browne MD PCP - General 08/29/14 02/04/21 documented as of this encounter
--- OUTSIDE RECORDS SUMMARY | 2024-06-23 15:14 | XMS_ITS | Encounter Summary ---
Author Organization [facility] Address [address] [place] [address]. [place], [place] [address] [place] [address] Care Team Providers Care Commercial Baker Helper Name Role Phone Alex Browne MD Primary Care Provider Unav ailable Encounter Details Date Type Department Care Team (Latest Contact Info) Description 02/24/2017 Scan HEALTH INFO SRVCS Scanned, Documents Social [...] Description 11/07/2024 9:40 AM CDT Office Visit [facility] Family Medicine - [place] [address] [place] [address] Franny Dolan PA-C 100 [place] [address] documented as of this encounter Visit Diagnoses Not on filedocumented in this encounter Care Teams Commercial Baker Helper Relationship Specialty Start Date End Date Alex Browne MD PCP - General 08/29/14 02/04/21 documented as of this encounter
--- OUTSIDE RECORDS SUMMARY | 2024-06-23 15:14 | XMS_ITS | Encounter Summary ---
Author Organization [facility] Address [address] [place] [address]. [place] [address] [place] [address] Care Team Providers Care Filler Sifter Machine Name Role Phone Alex Browne MD Primary Care Provider Unav ailable Reason for Visit * Reason Comments Pathology (SCAN) Colonoscopy Report (SCAN) Encounter Details Date Type Department Care Team (Late Contact Info) Description 02/22/2017 Scan HEALTH INFO SRVCS Scanned, Documents Pathology (SCAN); Colonoscopy Report (SCAN) Social History Tobacco Use Types [...] Description 11/07/2024 9:40 AM CDT Office Visit [facility] Family Medicine - [place] 100 [place] [address] Franny Dolan PA-C 100 [place] [address] documented as of this encounter Procedures Procedure Name Priority Date/Time Associated Diagnosis Comments PATHOLOGY GENERIC (SCAN ORDER) 02/22/2017 PATHOLOGY GENERIC (SCAN ORDER) 02/22/2017 COLONOSCOPY GENERIC (SCAN ORDER) 02/22/2017 documented in this encounter Results * PATHOLOGY GENERIC (02/22/2017) 02/22/2017 Narrative 02/22/2017 Ordered by an unspecified provider. us Documents Scanned SCANNING Final Result * PATHOLOGY GENERIC (02/22/2017) 02/22/2017 Narrative 02/22/2017 Ordered by an unspecified provider. us Documents Scanned SCANNING Final Result * COLONOSCOPY GENERIC (02/22/2017) 02/22/2017 Narrative 02/22/2017 Ordered by an unspecified provider. us Documents Scanned SCANNING Final Result documented in this encounter Visit Diagnoses Not on filedocumented in this encounter Care Teams Filler Sifter Machine Relationship Specialty Start Date End Date Alex Browne MD PCP - General 08/29/14 02/04/21 documented as of this encounter
--- OUTSIDE RECORDS SUMMARY | 2024-06-23 15:14 | XMS_ITS | Encounter Summary ---
Author Organization [facility] Address [address] [place] [address]. [place], [place] [address] [place] [address] Care Team Providers Care Loin Puller Name Role Phone Alex Browne MD Primary Care Provider Unav ailable Encounter Details Date Type Department Care Team (Latest Contact Info) Description 08/02/2017 Scan HEALTH INFO SRVCS Scanned, Documents Social [...] [facility] - [place] 100 [place] [address] Franny Dolan PA-C 100 [place] [address] documented as of this encounter Visit Diagnoses Not on filedocumented in this encounter Care Teams Loin Puller Relationship Specialty Start Date End Date Alex Browne MD PCP - General 08/29/14 02/04/21 documented as of this encounter
--- OUTSIDE RECORDS SUMMARY | 2024-06-23 15:14 | XMS_ITS | Encounter Summary ---
Author Organization [facility] Address [address] [place] [address]. [place], [place] [address] [place] [address] Care Team Providers Care Dope Sprayer Name Role Phone Alex Browne MD Primary Care Provider Unav ailable Encounter Details Date Type Department Care Team (Late st Contact Info) Description 08/29/[address] [facility] [place] [address] Alex Browne MD Social History Tobacco Use [...] [facility] Family [facility] - [place] [address] [place] [address] Franny Dolan PA-C 100 [place] [address] documented as of this encounter Visit Diagnoses Diagnosis Urinary tract infection Urinary tract infection, site not specified documented in this encounter Care Teams Dope Sprayer Relationship Specialty Start Date End Date Alex Browne MD PCP - General 08/29/14 02/04/21 documented as of this encounter
--- OUTSIDE RECORDS SUMMARY | 2024-06-23 15:15 | XMS_ITS | Encounter Summary ---
Author Organization [facility] Address [address] [place] [address]. [place] [address] [place] [address] Care Team Providers Care Pathologist Assistant Name Role Phone Alex Browne MD Primary Care Provider Unav Alex Ren MD Primary Care Provider Unav ailAlex Baig MD Primary Care Provider Unav ailable Alex Browne MD Primary Care Provider Unav ailable Encounter Details Date Type Department Care Team (Late st Contact Info) Description 07/14/2010 Abstract [facility] [facility] [address] Alex Browne MD Social History Tobacco Use [...] [facility] - [place] 100 [place] [phone] Franny Dolan PA-C 100 [place] [address] documented as of this encounter Visit Diagnoses Diagnosis Cervicalgia documented in this encounter Care Teams Pathologist Assistant Relationship Specialty Start Date End Date Alex Browne MD PCP - General 08/29/14 02/04/21 Alex Browne MD PCP - General 05/08/13 08/28/14 Alex Browne MD PCP - General 03/22/13 05/07/13 Alex Browne MD PCP - General 03/01/13 03/21/13 documented as of this encounter
--- OUTSIDE RECORDS SUMMARY | 2024-06-23 15:15 | XMS_ITS | Encounter Summary ---
Author Organization [facility] Address [address] [place] [address]. [place] [address] [place] [address] Care Team Providers Care Crystalizer Operator Name Role Phone Alex Browne MD Primary Care Provider UnaAlex Garcia MD Primary Care Provider Unav ailAlex Baig MD Primary Care Provider Unav ailAlex Baig MD Primary Care Provider Unav ailable Reason for Visit * Reason Comments Mammogram (SCAN) Encounter Details Date Type Department Care Team (Late st Contact Info) Description 05/14/2012 Scan HEALTH INFO SRVCS Scanned, Documents Mammogram (SCAN) [...] Description 11/07/2024 9:40 AM CDT Office Visit [facility] Family Medicine - [place] 100 [place] [phone] Franny Dolan PA-C 100 [place] [address] documented as of this encounter Procedures Procedure Name Priority Date/Time Associated Diagnosis Comments MAMMOGRAM GENERIC (SCAN ORDER) 05/14/2012 documented in this encounter Results * MAMMOGRAM GENERIC (05/14/2012) Anatomical Region Laterality Modality Other 05/14/2012 Narrative 05/14/2012 Ordered by an unspecified provider. us Documents Scanned SCANNING Final Result documented in this encounter Visit Diagnoses Not on filedocumented in this encounter Care Teams Crystalizer Operator Relationship Specialty Start Date End Date Alex Browne MD PCP - General 08/29/14 02/04/21 Alex Browne MD PCP - General 05/08/13 08/28/14 Alex Browne MD PCP - General 03/22/13 05/07/13 Alex Browne MD PCP - General 03/01/13 03/21/13 documented as of this encounter
--- OUTSIDE RECORDS SUMMARY | 2024-06-23 15:15 | XMS_ITS | Encounter Summary ---
Author Organization [facility] Address [facility] [place] [address] [place] [address] Care Team Providers Care Gas Line Servicer Name Role Phone Alex Browne MD Primary Care Provider Unav ailAlex Baig MD Primary Care Provider Unav ailable Alex Browne MD Primary Care Provider Unav ailable Alex Browne MD Primary Care Provider Unav ailable Encounter Details Date Type Department Care Team (Late st Contact Info) Description 06/17/2010 [address] [facility] [address] [facility] [place] [address] Maria Teresa Lofton MD [address] [place] [address] Social History Tobacco Use Types Packs/Day Years [...] AM CDT Office Visit [facility] Family Medicine - [place] 100 [place] [phone] Franny Dolan PA-C 100 [place] [address] documented as of this encounter Visit Diagnoses Diagnosis Injury, other and unspecified, knee, leg, ankle, and foot documented in this encounter Care Teams Gas Line Servicer Relationship Specialty Start Date End Date Alex Browne MD PCP - General 08/29/14 02/04/21 Alex Browne MD PCP - General 05/08/13 08/28/14 Alex Browne MD PCP - General 03/22/13 05/07/13 Alex Browne MD PCP - General 03/01/13 03/21/13 documented as of this encounter
--- OUTSIDE RECORDS SUMMARY | 2024-06-23 15:15 | XMS_ITS | Encounter Summary ---
Author Organization [facility] Address [address] [place] [address]. [place] [address] [place] [address] Care Team Providers Care Weather Strip Mechanic Name Role Phone Alex Browne MD Primary Care Provider Unav Alex Ren MD Primary Care Provider Unav ailAlex Baig MD Primary Care Provider Unav ailable Alex Browne MD Primary Care Provider Unav ailable Encounter Details Date Type Department Care Team (Late st Contact Info) Description 12/21/[address] [facility] [address] [place], [place] [phone] Luis Fernando Edouard MD Social History Tobacco Use Types Packs/Day [...] [facility] Family [facility] - [place] 100 [place] [phone] Franny Dolan PA-C 100 [place] [address] documented as of this encounter Visit Diagnoses Not on filedocumented in this encounter Care Teams Weather Strip Mechanic Relationship Specialty Start Date End Date Alex Browne MD PCP - General 08/29/14 02/04/21 Alex Browne MD PCP - General 05/08/13 08/28/14 Alex Browne MD PCP - General 03/22/13 05/07/13 Alex Browne MD PCP - General 03/01/13 03/21/13 documented as of this encounter
--- OUTSIDE RECORDS SUMMARY | 2024-06-23 15:15 | XMS_ITS | Encounter Summary ---
Author Organization [facility] Address [facility] [place] [address] [place] [address] Care Team Providers Care Integrated Circuit Ic Layout Designer Name Role Phone Alex Browne MD Primary Care Provider Unav ailAlex Baig MD Primary Care Provider Unav ailable Alex Browne MD Primary Care Provider Unav ailable Alex Browne MD Primary Care Provider Unav ailable Encounter Details Date Type Department Care Team (Late st Contact Info) Description 06/18/2004 Abstract [facility] [address] [place] [address] Su See MD [address] [place] [address] Social History Tobacco Use Types Packs/Day Years [...] [facility] - [place] 100 [place] [phone] Franny Dolan PA-C 100 [place] [address] documented as of this encounter Visit Diagnoses Not on filedocumented in this encounter Care Teams Integrated Circuit Ic Layout Designer Relationship Specialty Start Date End Date Alex Browne MD PCP - General 08/29/14 02/04/21 Alex Browne MD PCP - General 05/08/13 08/28/14 Alex Browne MD PCP - General 03/22/13 05/07/13 Alex Browne MD PCP - General 03/01/13 03/21/13 documented as of this encounter
--- OUTSIDE RECORDS SUMMARY | 2024-06-23 15:15 | XMS_ITS | Encounter Summary ---
Author Organization [facility] Address [facility] [place] [address] [place] [address] Care Team Providers Care Rn Progressive Care Name Role Phone Alex Browne MD Primary Care Provider Unav ailAlex Baig MD Primary Care Provider Unav ailAlex Baig MD Primary Care Provider Unav ailable Alex Browne MD Primary Care Provider Unav ailable Encounter Details Date Type Department Care Team (Late st Contact Info) Description 11/21/2002 Abstract [place] [address] [facility] [address] [place], [place] [phone] Luis Fernando Edouard MD Social History Tobacco [...] [facility] - [place] 100 [place] [phone] Franny Dolan PA-C 100 [place] [address] documented as of this encounter Visit Diagnoses Not on filedocumented in this encounter Care Teams Rn Progressive Care Relationship Specialty Start Date End Date Alex Browne MD PCP - General 08/29/14 02/04/21 Alex Browne MD PCP - General 05/08/13 08/28/14 Alex Browne MD PCP - General 03/22/13 05/07/13 Alex Browne MD PCP - General 03/01/13 03/21/13 documented as of this encounter
--- OUTSIDE RECORDS SUMMARY | 2024-06-23 15:15 | XMS_ITS | Encounter Summary ---
Author Organization [facility] Address [address] [place] [address]. [place] [address] [place] [address] Care Team Providers Care Auction Block Clerk Name Role Phone Alex Browne MD Primary Care Provider Unav Alex Ren MD Primary Care Provider Unav ailAlex Baig MD Primary Care Provider Unav ailable Alex Browne MD Primary Care Provider Unav ailable Encounter Details Date Type Department Care Team (Late Contact Info) Description 07/02/2009 Abstract [facility] [address] [place], [place] [phone] Alex Browne MD Social History Tobacco Use [...] [facility] Family [facility] - [place] 100 [place] [phone] Franny Dolan PA-C 100 [place] [address] documented as of this encounter Visit Diagnoses Not on filedocumented in this encounter Care Teams Auction Block Clerk Relationship Specialty Start Date End Date Alex Browne MD PCP - General 08/29/14 02/04/21 Alex Browne MD PCP - General 05/08/13 08/28/14 Alex Browne MD PCP - General 03/22/13 05/07/13 Alex Browne MD PCP - General 03/01/13 03/21/13 documented as of this encounter
--- OUTSIDE RECORDS SUMMARY | 2024-06-23 15:15 | XMS_ITS | Encounter Summary ---
Author Organization [facility] Address [address] [place] [address]. [place] [address] [place] [address] Care Team Providers Care Post Doc Fellowship Name Role Phone Alex Browne MD Primary Care Provider Unav Alex Ren MD Primary Care Provider Unav ailAlex Baig MD Primary Care Provider Unav ailable Alex Browne MD Primary Care Provider Unav ailable Encounter Details Date Type Department Care Team (Late st Contact Info) Description 12/11/2003 Abstract [facility] [address] [place], [place] [phone] Luis Fernando Edouard MD Social History Tobacco [...] [facility] Family Medicine - [place] 100 [place] [phone] Franny Dolan PA-C 100 [place] [address] documented as of this encounter Visit Diagnoses Not on filedocumented in this encounter Care Teams Post Doc Fellowship Relationship Specialty Start Date End Date Alex Browne MD PCP - General 08/29/14 02/04/21 Alex Browne MD PCP - General 05/08/13 08/28/14 Alex Browne MD PCP - General 03/22/13 05/07/13 Alex Browne MD PCP - General 03/01/13 03/21/13 documented as of this encounter
--- OUTSIDE RECORDS SUMMARY | 2024-06-23 15:15 | XMS_ITS | Encounter Summary ---
Author Organization [facility] Address [address] [place] [address]. [place] [address] [place] [address] Care Team Providers Care Bin Packer Name Role Phone Alex Browne MD Primary Care Provider Unav ailAlex Baig MD Primary Care Provider Unav ailable Alex Browne MD Primary Care Provider Unav ailable Alex Browne MD Primary Care Provider Unav ailable Encounter Details Date Type Department Care Team (Late st Contact Info) Description 05/07/[address] [facility] [address] [place], [place] [phone] Luis Fernando Edouard MD Social History Tobacco [...] [facility] Family [facility] - [place] 100 [place] [phone] Franny Dolan PA-C 100 [place] [address] documented as of this encounter Visit Diagnoses Not on filedocumented in this encounter Care Teams Bin Packer Relationship Specialty Start Date End Date Alex Browne MD PCP - General 08/29/14 02/04/21 Alex Browne MD PCP - General 05/08/13 08/28/14 Alex Browne MD PCP - General 03/22/13 05/07/13 Alex Browne MD PCP - General 03/01/13 03/21/13 documented as of this encounter
--- OUTSIDE RECORDS SUMMARY | 2024-06-23 15:25 | XMS_ITS | Encounter Summary ---
Author Organization [facility] Address [address] [place] [address] Phone Care Team Providers Care Chicken Hatchery Helper Name Role Phone Alex Browne MD Primary Care Provider [phone] Encounter Details Date Type Department Care Team (Late st Contact Info) Description 09/09/2022 12:00 PM CDT Lab [facility] [address] [address] Lab, [facility] Secondary polycythemia Social History Tobacco Use Types Packs/Day Years Used Date Smoking Tobacco: Former Cigarettes Smokeless Tobacco: Never Alcohol Use Standard Drinks/Week Comments No 0 (1 standard drink = 0.6 oz pur e alcohol) PHQ-2 Answer Date Recorded Total Score - Questions 1-9 0 08/24 Sexually Active Control Partners Comments Yes Male hysterectomy Comments No Sex and Gender Information Value Date Recorded Sex Assigned at Not on file Legal Sex Female 10:28 AM CDT Gender Identity Not on file Sexual Orientation Not on file COVID-19 Exposure Response Date Recorded In the last 10 days, have yo u been in contact with someone who was confirmed or suspected to have Coronavirus/COVID-19? No / Unsure 09/09/2022 10:10 AM CDT documented as of this encounter Functional Status * Question Answer Date of Assessment Author Little interest or pleasure in doing things Not at all 09/09/2022 11:16 AM CDT Yasmeen Garrison, RMA Feeling down, depressed, or hopeless Not at all 09/09/2022 11:16 AM CDT Yasmeen Garrison RMA * Over the past 2 weeks, how often have you been bothered by any of the following problems? Question Answer Date of Assessment Author Patient Health Questionnaire -2 Score 0 09/09/2022 11:16 AM CDT Yasmeen Garrison RMA documented as of this encounter Plan of Treatment Upcoming Encounters Date Type Department Care Team (Late st Contact Info) Description 09/06/2024 10:00 AM CDT Office Visit [facility] [address] [place] [address] Basil Staley, [address] [place] [address] documented as of this encounter Procedures Procedure Name Priority Date/Time Associated Diagnosis Comments COMPLETE BLOOD COUNT (CBC) WITH DIFF Routine 09/09/2022 12:01 PM CDT Secondary polycythemia documented in this encounter Results * (ABNORMAL) COMPLETE BLOOD COUNT (CBC) WITH DIFF (09/09/2022 12:01 PM CDT) WBC 6.6 4.0 - 10.0 10*3/uL [facility] HGB 15.4 11.2 - 15.7 g/dL [facility] HCT 46.1(H) 34.1 - 44.9 % [facility] PLT 245 163 - 369 10*3/uL [facility] MPV 10.1 9.4 - 12.4 fL [facility] RBC 5.34(H) 3.93 - 5.22 10*6/uL [facility] MCV 86 79 - 95 fL [facility] MCH 28.8 25.6 - 32.2 pg [facility] MCHC 33.4 32.2 - 36.5 g/dL [facility] RDW 13.8 11.6 - 14.4 % [facility] Absolute Neutrophil Count 4,271 cells/uL [facility] Absolute Seg Count 4,271 1,440 - 6,600 cells/uL [facility] Absolute Lymph Count 1,708 760 - 4,000 cells/uL [facility] Absolute [place] Count 460 160 - 1,200 cells/uL [facility] Absolute Eos Count 131 0 - 300 cells/uL [facility] Segmented Neutrophils 65 36 - 66 % [facility] Lymphocytes 26 19 - 40 % [facility] Monocytes 7 4 - 12 % [facility] Eosinophils 2 0 - 3 % [facility] WBC Estimate Normal [facility] Platelet Estimate Normal [facility] RBC Morphology Normal [facility] Blood 09/09/2022 12:0 1 PM CDT Narrative [facility] - 09/09/2022 3:05 PM CDT Release to patient->Immediate us Ann Sullivan APRN, QUILLER MACHINE FIXER HEMATOLOGY ORDERA BLES Final Result [facility] [address] [place] [address], documented in this encounter Visit Diagnoses Diagnosis Secondary polycythemia Polycythemia, secondary documented in this encounter Additional Health Concerns Assessment Noted Time PHQ-9 Depression Total Score: 0 06/12/20 20 10:52 AM TELEPHONE SERVICES SALES REPRESENTATIVE documented as of this encounter Care Teams Chicken Hatchery Helper Relationship Specialty Start Date End Date Alex Browne MD [address] [place] [address] PCP - General Family Medicine 02/14/18 documented as of this encounter
--- OUTSIDE RECORDS SUMMARY | 2024-06-23 15:25 | XMS_ITS | Clinical Summary ---
Author Organization [facility] Address [address], [facility] [address] [place] [address] Phone Care Team Providers Care Under Presser Name Role Phone Alex Browne MD Primary Care Provider Allergies Active Allergy Reactions Criticality Noted Date Comments Bee Pollen Runny Nose Low 02/20/2018 Dust Mite Extract Runny Nose 02/20/2018 Molds & Smuts Runny Nose 02/20/2018 Pollen Extract Runny Nose 02/20/2018 Medications cetirizine (ZYRTEC) 10 MG TabletIndicatio ns:Polycythemia ,Abnormal liver enzymes daily. 02/07/2018 Active Fenofibrate Micronized 134 MG CapsuleIndicati ons:Polycythemi a,Abnormal liver enzymes 10/24/2017 Activ e hydroCHLOROthia zide 25 MG TabletIndicatio ns:Polycythemia ,Abnormal liver enzymes Take 25 mg by mouth daily. 12/20/2017 Active levothyroxine (SYNTHROID) 100 MCG TabletIndicatio ns:Polycythemia ,Abnormal liver enzymes Take 100 mcg by mouth daily. 0 02/06/2018 Active clobetasol (TEMOVATE) 0.05 % OintmentIndicat ions:Polycythem ia,Abnormal liver enzymes Apply 2 times daily. Active acetaminophen (TYLENOL) 650 MG Tablet Controlled Release Take 650 mg by mouth every 6 hours as needed. Active metFORMIN (GLUCOPHAGE) 500 MG Tablet Take 500 mg by mouth daily. 05/26/2020 Active DULoxetine (CYMBALTA) [address] Particles 04/20/2020 Active fluticasone (FLONASE) 50 MCG/ACT Suspension 2 Sprays by Nasal route. Active busPIRone (BUSPAR) 10 MG Tablet Take 10 mg by mouth. Active nystatin 526243 UNIT/GM Powder Apply. 03/22/2021 Acti ve glipiZIDE (GLUCOTROL XL) 10 MG TABLET SR 24 HR TAKE 1 TABLET BY MOUTH TWICE DAILY. DO NOT BREAK OR CRUSH TABLET 05/30/2022 Active Multiple Vitamin (MULTIVITAMIN PO) Take by mouth. Active glucosamine-cho ndroitin 500-400 MG Capsule Take 1 Capsule by mouth 3 times daily. Active losartan (COZAAR) 50 MG Tablet 08/28/2023 Active cyclobenzaprine (FLEXERIL) 10 MG Tablet 08/28/2023 Active Ozempic, 1 MG/DOSE, 4 MG/3ML Solution Pen-injector INJECT 1MG INTO SKIN ONCE A WEEK 08/29/2023 Active Active Problems Problem Noted Date Diagnosed Date Fatty liver 03/21/2021 Type 2 diabetes mellitus wit hout complication, without long-term current use of insulin 02/09/2021 Moderate episode of recurrent major depressive d isorder 02/09/2021 Hypothyroidism 02/09/2021 Hyperlipidemia 02/09/2021 Essential hypertension 02/09/2021 NIRANJAN (obstructive sleep apnea) 10/19/2020 Overview (09/08/2022): Last Assessment & Plan: Due to the patient stating that she is snoring under the mask and an worsening of her secondary polycythemia, I have increased his CPAP pressure to 17 cm of water pressure. The patient will continue to follow up with Oncology for the polycythemia and has a CBC ordered prior to her next visit. DME company [employer]. The patient also received an order for full set of supplies. Patient is benefitting from CPAP Last Assessment & Plan: Patient continue to wear her CPAP at 15 cm water pressure while sleeping. Her DME is [facility]. Secondary polycythemia 02/20/2018 Abnormal liver enzymes 02/20/2018 Immunizations Immunization Administration Dates Next Due Influenza Vaccine 06/04/2018 Influenza Vaccine, MDCK,quad rivalent, pres free 04/09/2019,04/02/2018 Influenza Vaccine, Quadrivalent, PF 03/15/2020,0 03/12/2017,03/26/2016 Influenza Vaccine,unspecified Formulation 2022 Influenza, High-dose, Quadrivalent 03/28/2023, Influenza, Quadrivalent, Adjuvanted 04/05/2021 Pneumococcal Vaccine Adult - 23 Valent TDAP Vaccine 02/08/2022 Zoster Vaccine Recombinant 03/26/2022,01/21/2022 Family History Medical History Relation Name Comments Heart Attack Father Heart Disease Mother Cancer Sister Relation Name Status Comments Father Mother Sister Social History Tobacco Use [...] Sign Reading Time Taken Comments Blood Pressure 130/84 09/08/2023 10:51 AM CDT Pulse 71 09/08/2023 10:51 AM CDT Temperature 36.6 ??C (97.8 ??F) 09/08/2023 1 0:51 AM CDT Respiratory Rate 18 09/08/2023 10:5 1 AM CDT Oxygen Saturation 96% 09/08/2023 10: 51 AM CDT Inhaled Oxygen Concentration - - Weight 125.7 kg (277 lb 3.2 oz) 024 10:51 AM CDT Height 162.6 cm (5' 4 ) 09/08/2023 10:5 1 AM CDT Body Mass Index 47.58 09/08/2023 10:51 AM CDT Plan of Treatment Upcoming Encounters Date Type Department Care Team (Late st Contact Info) Description 09/06/2024 10:00 AM CDT [facility] Visit [facility] [address] [address] Basil Staley, DO [address] [place] [address] Health Maintenance Due Date Last Done Comments Diabetes: Eye Exam 1955 Diabetes: Foot Exam 1955 Colonoscopy 2001 Colorectal Cancer Screening 2001 Cologuard 2006 Immunochemical Fecal Occult Blood 2006 Respiratory Syncytial Virus (RSV) Immunization (Adult) (1 - Risk 60-74 years 1-dose series) 2016 DEXA Bone Density 09/27/2018 09/27/2016 Pneumococcal Immunization (50+ years) (2 of 2 - PCV) 08/30/2022 08/30/2021 Diabetes: Nephropathy Screening 09/10/2022 09/10/2021, 06/10/2020, 12/17/2019, Additional history exists Diabetes: Hemoglobin A1c 02/22/2024 024, 01/24/2023, 08/30/2021, Additional history exists Influenza Immunization (#1) 2024 100 08/2022, 03/28/2023, 04/10/2022, Additional history exists SARS-COV-2 Immunization ( season) 2024 04/18/2023, 02/19/2022, 08/09/2021, Additional history exists Mammogram 01/16/2025 01/16/2023, 04/0 09/2016, 09/25/2015, Additional history exists Td Immunization Every 10 Years (Adults With 1 Tdap) 02/09/2032 02/08/2022 Pneumococcal Immunization Combined Discontinued 08/30/2021 DTaP/Tdap/Td Immunization Discontinued 02/08/2022 Zoster Immunization Completed 03/26/2022, Hepatitis C Virus (HCV) Screening Completed 01/24/2023 Hepatitis B Immunization Aged Out No longer eligible based on patient's age to complete this topic Meningococcal Immunization (ACWY) Aged Out No longer eligible based on patient's age to complete this topic Rotavirus Immunization Aged Out No lo nger eligible based on patient's age to complete this topic Procedures Procedure Name Priority Date/Time Associated Diagnosis Comments CMP (COMPREHENSIVE METABOLIC PANEL) Routine 09/10/2021 10:02 AM CDT Secondary polycythemia from Last 3 Months or Most Recently Relevant to Health Maintenance Results * (ABNORMAL) CMP (COMPREHENSIVE METABOLIC PANEL) (09/10/2021 10:02 AM CDT) Glucose 257(H) 70 - 105 mg/dL [facility] Blood Urea Nitrogen 16 7 - 25 mg/dL [facility] Creatinine 0.8 0.6 - 1.2 mg/dL [facility] Sodium 140 136 - 145 mEq/L [facility] Potassium 3.8 3.5 - 5.1 mEq/L [facility] Chloride 105 98 - 107 mEq/L [facility] Bicarbonate 27 21 - 31 mEq/L [facility] Total Bilirubin 0.6 0.3 - 1.0 mg/dL [facility] Alk. Phosphatase 111(H) 34 - 104 U/L [facility] Aspartate Aminotransferase 44(H) 13 - 39 U/L [facility] Alanine Aminotransferase 47 7 - 52 U/L [facility] Total Protein 6.7 6.4 - 8.9 g/dL [facility] Albumin 4.2 3.5 - 5.7 g/dL [facility] Calcium 9.9 8.6 - 10.3 mg/dL [facility] Anion Gap 11.8 7.0 - 15.0 mEq/L [facility] Globulin 2.5 2.0 - 3.5 g/dL [facility] EGFR 81 >60 ml/min/1. 73m2 [facility] Comment: This eGFR is calculated using 2020 CKD-EPI Creatinine equation without race modifier based on the NKF-ASN task force recommendations Blood 09/10/2021 10:0 2 AM CDT Narrative [facility] - 09/10/2021 10:51 AM CDT IS THE PATIENT REQUIRED TO BE FASTING FOR 8 HOURS?->No Release to patient->Immediate us Jonathan Crews PAC CHEMISTRY ORDERABLES Final Result [facility] [address] [place] [address], from Last 3 Months or Most Recently Relevant to Health Maintenance Insurance MEDICARE [employer] [facility] Care Teams Under Presser Relationship Specialty Start Date End Date [place], Alex L, MD [address] [place] [address] PCP - General Family Medicine 02/14/18
--- OUTSIDE RECORDS SUMMARY | 2024-06-23 15:25 | XMS_ITS | Encounter Summary ---
Author Organization [facility] Address [address] [place] [address] Phone Care Team Providers Care Sustainable Systems Analyst Name Role Phone Alex Browne MD Primary Care Provider [phone] Reason for Visit * Reason Comments Follow-up Encounter Details Date Type Department Care Team (Latest Contact Info) Description 06/12/2020 10:30 AM IDENTIFICATION PRINTING MACHINE SETTER Office Visit [facility] [address] [place] [address] Basil Staley, DO [address] [place] [address] Polycythemia (Primary Dx) Social History Tobacco Use Types Packs/Day Years Used Date Smoking Tobacco: Former Cigarettes Smokeless Tobacco: Never Alcohol Use Standard Drinks/Week Comments No 0 (1 standard drink = 0.6 oz pur e alcohol) PHQ-2 Answer Date Recorded Total Score - Questions 1-9 0 05/26 Sexually Active Control Partners Comments Yes Male [...] have Coronavirus / COVID-19? No / Unsure 06/12/2020 10:21 AM IDENTIFICATION PRINTING MACHINE SETTER documented as of this encounter Last Filed Vital Signs Vital Sign Reading Time Taken Comments Blood Pressure 118/70 06/12/2020 10:48 AM IDENTIFICATION PRINTING MACHINE SETTER Pulse 69 06/12/2020 10:48 AM IDENTIFICATION PRINTING MACHINE SETTER Temperature 36.2 ??C (97.1 ??F) 06/12/2020 10:[address] Respiratory Rate 18 06/12/2020 10:48 AM IDENTIFICATION PRINTING MACHINE SETTER Oxygen Saturation 95% 06/12/2020 10:48 AM IDENTIFICATION PRINTING MACHINE SETTER Inhaled Oxygen Concentration - - Weight 123.4 kg (272 lb) 06/12/2020 10:48 AM IDENTIFICATION PRINTING MACHINE SETTER Height 162.6 cm (5' 4 ) 06/12/2020 10:48 AM IDENTIFICATION PRINTING MACHINE SETTER Body Mass Index 46.69 06/12/2020 10:48 AM IDENTIFICATION PRINTING MACHINE SETTER documented in this encounter Progress Notes * Basil Staley DO - 06/12/2020 10:30 AM CST Patient: Kirstal Bustos Age: 65 y.o. : 1955 Encounter Dept: [facility] Encounter Date: 06/12/2020 Care Team: Current Providers PCP: Alex Browne MD Encounter Provider: Basil Staley DO Referring Provider: not found Consulting Physician: Basil Staley DO PATIENT IDENTIFICATION: This patient is a very pleasant 65-year-old female. HISTORY OF PRESENT ILLNESS: Kristal is doing well. No complaints. She is tolerating her CPAP well. She continues on her thiazide diuretic. No change in her condition. DIAGNOSIS: 1. 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 PAST TREATMENT: 1. None. CURRENT TREATMENT: 1. CPAP for sleep apnea. 2. Thiazide diuretic. TREATMENT GUIDELINES: Not applicable. PROGNOSIS: Not applicable. EXPECTED RESPONSE TO TREATMENT: Not applicable. EXPECTED QUALITY OF LIFE DURING TREATMENT: Not applicable. ECOG: Not applicable. PAIN: No pain. PLAN FOR PAIN: Not applicable. CODE STATUS: Not addressed. ASSESSMENT: 1. Polycythemia, JAK2 negative, likely secondary to diuretics and sleep apnea, undiagnosed. 2. Steatohepatitis. PLAN: 1. Repeat CBC, LDH in one year. 2. Patient???s polycythemia continues to improve. 3. Continue treatment of sleep apnea which will likely continue to cause resolution of her secondary polycythemia. 4. Followup in one year. REVIEW OF SYSTEMS: See HPI; otherwise, 12-point review of systems is negative. PHYSICAL EXAM: GENERAL: Patient is awake, alert and oriented x3. HEENT: Normocephalic, atraumatic, PERRLA, EOMI. Sclerae nonicteric, conjunctivae normal. Nasopharynx negative. Tongue normal, uvula midline, no thrush, no mucosal lesions present. NECK: Supple. No cervical, supraclavicular, or axillary lymphadenopathy. Thyroid not palpable. LUNGS: Clear to auscultation and percussion in all lung lopez, no focal wheezes, rales, or rhonchi. HEART: Regular rhythm and rate. Normal S1, S2, no S3, S4, no murmur, or rub. ABDOMEN: No hepatosplenomegaly, masses, ascites, areas of tenderness, bruits, or hernias. EXTREMITIES: No clubbing, cyanosis, or edema. SKIN: No ecchymosis, petechiae, or rashes. NEURO: Nonfocal. MUSCULOSKELETAL: No joint tenderness or effusion. No spine tenderness. LABORATORY/PATHOLOGY/IMAGING NOTES: 1. CBC shows hematocrit improved down to 47. 2. Ultrasound shows no tumors in liver, kidneys, abdomen. It does show steatohepatitis. 3. JAK2 negative. 4. EPO normal. Basil Staley, DO, FACOI/rmd Vitals: Vitals: 06/12/20 1048 BP: 118/70 BP Location: Right Arm BP Position: Sitting BP Cuff Size: Regular Pulse: 69 Resp: 18 Temp: 97.1 ??F (36.2 ??C) TempSrc: Temporal SpO2: 95% Weight: 272 lb (123.4 kg) Height: 5' 4 (1.626 m) Body surface area is 2.36 meters squared. Body mass index is 46.69 kg/m??. Allergies: Allergies Allergen Reactions ??? Dust Mite Extract Runny Nose ? ? Molds & Smuts Runny Nose ??? Pollen Extract Runny Nose ??? Bee Pollen Runny Nose PMH/SgH/FH/SH: Past medical, surgical, family and social histories were reviewed at this visit. Past Medical History Positives Diagnosis Date ??? Abnormal liver enzymes 02/20/2018 ??? Arthritis ??? Diabetes mellitus (HCC) ??? Hypertension ??? Polycythemia 02/20/2018 ??? Thyroid disease Past Surgical History: Procedure Laterality Date ??? BLADDER SUSPENSION ??? SECTION ??? HC [facility] ENDO CARPEL TUNNEL KIT DYONICS ??? HYSTERECTOMY ??? INNER EAR SURGERY ??? REMOVAL GALLBLADDER ??? TONSILLECTOMY ??? TUBAL LIGATION Family History Problem Relation Age of Onset ??? Heart Disease Mother ??? Heart Attack Father ??? Cancer Sister Family Status Relation Name Status ??? Mother ??? Father ??? Sister Social History Socioeconomic History ??? Marital status: Unknown Spouse name: Not on file ??? Number of children: Not on file ??? Years of education: Not on file ??? Highest education level: Not on file Tobacco Use ??? Smoking status: Former Smoker Types: Cigarettes ??? Smokeless tobacco: Never Used Substance and Sexual Activity ??? Alcohol use: No ??? Drug use: No ??? Sexual activity: Yes Partners: Male Comment: hysterectomy Oncology History: Oncology History No history exists. Cancer Staging: Cancer Staging No matching staging information was found for the patient. Cumulative dose Purpose/Goal Comments Lifetime Dose Tracking No doses have been documented on this patient for the following tracked chemicals: Doxorubicin, Epirubicin, Idarubicin, Daunorubicin, Mitoxantrone, Bleomycin Current Medications: Outpatient Encounter Medications as of 06/12/2020 Medication Sig Dispense Refill ??? acetaminophen (Tylenol 8 Hour) 650 MG Tablet Controlled Release Take 650 mg by mouth every 6 hours as needed. ??? aspirin EC 81 MG Tablet Delayed Response Take 81 mg by mouth. ??? cetirizine (ZYRTEC) 10 MG Tablet daily. ??? clobetasol (TEMOVATE) 0.05 % Ointment Apply 2 times daily. ??? DULoxetine (CYMBALTA) [address] Particles ??? Fenofibrate Micronized 134 MG Capsule ??? fluticasone (FLONASE) 50 MCG/ACT Suspension 2 Sprays by Nasal route. ??? hydroCHLOROthiazide 12.5 MG Tablet ??? IBUPROFEN PO Take by mouth. ??? levothyroxine (SYNTHROID) 100 MCG Tablet Take 100 mcg by mouth daily. 0 ??? [DISCONTINUED] Meloxicam 15 MG Tablet ??? metFORMIN (GLUCOPHAGE) 500 MG Tablet Take 500 mg by mouth daily. ??? [DISCONTINUED] METFORMIN HCL PO Take by mouth. No facility-administered encounter medications on file as of 06/12/2020. Labs: Lab on 06/10/2020 Component Date Value Ref Range Status ??? LDH 06/10/2020 151 140 - 271 U/L Final ??? Glucose 06/10/2020 217* 70 - 105 mg/dL Final ??? Blood Urea Nitrogen 06/10/2020 14 7 - 25 mg/dL Final ??? Creatinine 06/10/2020 0.9 0.6 - 1.2 mg/dL Final ??? Sodium 06/10/2020 140 136 - 145 mEq/L Final ??? Potassium 06/10/2020 3.8 3.5 - 5.1 mEq/L Final ??? Chloride 06/10/2020 103 98 - 107 mEq/L Final ??? Bicarbonate 06/10/2020 27 21 - 31 mEq/L Final ??? Total Bilirubin 06/10/2020 0.5 0.3 - 1.0 mg/dL Final ??? Alk. Phosphatase 06/10/2020 114* 34 - 104 U/L Final ??? Aspartate Aminotransferase 06/10/2020 28 13 - 39 U/L Final ??? Alanine Aminotransferase 06/10/2020 39 7 - 52 U/L Final ??? Total Protein 06/10/2020 6.6 6.4 - 8.9 g/dL Final ??? Albumin 06/10/2020 4.3 3.5 - 5.7 g/dL Final ??? Calcium 06/10/2020 10.5* 8.6 - 10.2 mg/dL Final ??? Anion Gap 06/10/2020 13.8 7.0 - 15.0 mEq/L Final ??? Globulin 06/10/2020 2.3 2.0 - 3.5 g/dL Final ? ? EGFR (Non ) 06/10/2020 >60 >60 ml/min Final ? ? EGFR () 06/10/2020 >60 >60 ml/min Final ??? WBC 06/10/2020 5.5 4.0 - 10.0 10*3/uL Final ??? HGB 06/10/2020 15.6 11.2 - 15.7 g/dL Final ??? HCT 06/10/2020 47.1* 34.1 - 44.9 % Final ??? PLT 06/10/2020 242 163 - 369 10*3/uL Final ??? MPV 06/10/2020 9.8 9.4 - 12.4 fL Final ??? RBC 06/10/2020 5.41* 3.93 - 5.22 10*6/uL Final ??? MCV 06/10/2020 87 79 - 95 fL Final ??? MCH 06/10/2020 28.8 25.6 - 32.2 pg Final ??? MCHC 06/10/2020 33.1 32.2 - 36.5 g/dL Final ??? RDW 06/10/2020 13.7 11.6 - 14.4 % Final ??? Absolute Neutrophil Count 06/10/2020 3,435 cells/uL Final ??? Absolute Seg Count 06/10/2020 3,435 1,440 - 6,600 cells/uL Final ??? Absolute Lymph Count 06/10/2020 1,496 760 - 4,000 cells/uL Final ??? Absolute [place] Count 06/10/2020 499 160 - 1,200 cells/uL Final ??? Absolute Eos Count 06/10/2020 111 0 - 300 cells/uL Final ??? Segmented Neutrophils 06/10/2020 62 36 - 66 % Final ??? Lymphocytes 06/10/2020 27 19 - 40 % Final ??? Monocytes 06/10/2020 9 4 - 12 % Final ??? Eosinophils 06/10/2020 2 0 - 3 % Final ??? WBC Estimate 06/10/2020 Normal Final ??? Platelet Estimate 06/10/2020 Normal Final ??? RBC Morphology 06/10/2020 Normal Final TIFICATION PRINTING MACHINE SETTER TIFICATION PRINTING MACHINE SETTER documented in this encounter Plan of Treatment Upcoming Encounters Date Type Department Care Team (Late st Contact Info) Description 09/06/2024 10:00 AM CDT Office Visit [facility] [address] [place] [address] Basil Staley DO [address] [place] [phone] documented as of this encounter Results * LACTATE DEHYDROGENASE (LD) (06/07/2021 9:16 AM IDENTIFICATION PRINTING MACHINE SETTER) LDH 154 140 - 271 U/L [facility] Blood 06/07/2021 9:16 AM IDENTIFICATION PRINTING MACHINE SETTER Narrative [facility] - 06/07/2021 10:13 AM IDENTIFICATION PRINTING MACHINE SETTER Release to patient->Immediate us Basil Staley DO CHEMISTRY ORDERABLES Final Res ult [facility] [address] [place] [address], documented in this encounter Visit Diagnoses Diagnosis Polycythemia- Primary Polycythemia vera Polycythemia Polycythemia vera documented in this encounter Additional Health Concerns Assessment Noted Time PHQ-9 Depression Total Score: 0 06/12/20 10:52 AM IDENTIFICATION PRINTING MACHINE SETTER documented as of this encounter Care Teams Sustainable Systems Analyst Relationship Specialty Start Date End Date Alex Browne MD [address] [place] [address] PCP - General Family Medicine 02/14/18 documented as of this encounter
--- OUTSIDE RECORDS SUMMARY | 2024-06-23 15:25 | XMS_ITS | Encounter Summary ---
Author Organization [employer] Care Team Providers Care Prescription Clerk Name Role Phone Alex Browne MD Primary Care Provider [phone] Encounter Details Date Type Department Care Team (Latest Contact Info) Description 06/10/2020 Travel Social History Tobacco Use Types Packs/Day Years Used Date Smoking Tobacco: Former Cigarettes Smokeless Tobacco: Never Alcohol Use Standard Drinks/Week Comments No 0 (1 standard drink = 0.6 oz pur e alcohol) PHQ-2 Answer Date Recorded PHQ-2 Score 0 03/09/2019 Sexually Active Control Partners Comments Yes Male [...] have Coronavirus / COVID-19? No / Unsure 06/10/2020 8:35 AM DRIVER WHEELCHAIR documented as of this encounter Plan of Treatment Upcoming Encounters Date Type Department Care Team (Late st Contact Info) Description 09/06/2024 10:00 AM CDT Office Visit [facility] [place] [address] [place] [address] Basil Staley, [address] [place] [address] documented as of this encounter Visit Diagnoses Not on filedocumented in this encounter Additional Health Concerns Assessment Noted Time PHQ-9 Depression Total Score: 0 12/15/19 19 10:19 AM CDT documented as of this encounter Care Teams Prescription Clerk Relationship Specialty Start Date End Date Alex Browne MD [address] [place] [address] PCP - General Family Medicine 02/14/18 documented as of this encounter
--- OUTSIDE RECORDS SUMMARY | 2024-06-23 15:25 | XMS_ITS | Encounter Summary ---
Author Organization [employer] Care Team Providers Care Rig Hand Name Role Phone Alex Browne MD Primary Care Provider [phone] Encounter Details Date Type Department Care Team (Latest Contact Info) Description 09/08/2023 Travel Social History Tobacco Use Types Packs/Day [...] on file documented as of this encounter Functional Status * Question Answer Date of Assessment Author Little interest or pleasure in doing things Not at all 09/08/2023 10:49 AM CDT Yasmeen Garrison RMA Feeling down, depressed, or hopeless Not at all 09/08/2023 10:49 AM CDT Bladimir Yasmeen A, RMA * Over the past 2 weeks, how often have you been bothered by any of the following problems? Question Answer Date of Assessment Author Patient Health Questionnaire -2 Score 0 09/08/2023 10:49 AM CDT Yasmeen Garrison RMA documented as of this encounter Plan of Treatment Upcoming Encounters Date Type Department Care Team (Late st Contact Info) Description 09/06/2024 10:00 AM CDT Office Visit [facility] [address] [address] Basil Staley, DO [address] [place] [id number] documented as of this encounter Visit Diagnoses Not on filedocumented in this encounter Additional Health Concerns Assessment Noted Time PHQ-9 Depression Total Score: 0 06/12/20 20 10:52 AM STRADDLE BUG DRIVER documented as of this encounter Care Teams Rig Hand Relationship Specialty Start Date End Date Alex Browne MD [address] [place] [address] PCP - General Family Medicine 02/14/18 documented as of this encounter
--- OUTSIDE RECORDS SUMMARY | 2024-06-23 15:25 | XMS_ITS | Encounter Summary ---
Author Organization [employer] Care Team Providers Care Battery Technician Name Role Phone Alex Browne MD Primary Care Provider [phone] Encounter Details Date Type Department Care Team (Latest Contact Info) Description 06/11/2021 Travel Social History Tobacco Use Types Packs/Day [...] have Coronavirus / COVID-19? No / Unsure 06/11/2021 10:21 AM INDIAN TRADER documented as of this encounter Plan of Treatment Upcoming Encounters Date Type Department Care Team (Late st Contact Info) Description 09/06/2024 10:00 AM CDT Office Visit [facility] [place] [address] [place] [address] Basil Staley DO [address] [place] [address] documented as of this encounter Visit Diagnoses Not on filedocumented in this encounter Additional Health Concerns Assessment Noted Time PHQ-9 Depression Total Score: 0 06/12/20 20 10:52 AM INDIAN TRADER documented as of this encounter Care Teams Battery Technician Relationship Specialty Start Date End Date Alex Browne MD [address] [place] [address] PCP - General Family Medicine 02/14/18 documented as of this encounter
--- OUTSIDE RECORDS SUMMARY | 2024-06-23 15:25 | XMS_ITS | Encounter Summary ---
Author Organization [facility] Address [address] [place] [address] Phone Care Team Providers Care Production Internship Name Role Phone Alex Browne MD Primary Care Provider Encounter Details Date Type Department Care Team ([facility] Contact Info) Description 06/07/2021 10:30 AM DYNAMIC BALANCER SET UP WORKER Lab [facility] [address] [phone] Lab, [facility] Polycythemia Social History Tobacco Use Types Packs/Day Years [...] have Coronavirus / COVID-19? No / Unsure 06/07/2021 9:14 AM DYNAMIC BALANCER SET UP WORKER documented as of this encounter Plan of Treatment Upcoming Encounters Date Type Department Care Team ([facility] Contact Info) Description 09/06/2024 10:00 AM CDT Office Visit [facility] [address] [phone] Basil Staley, DO [address] [place] [address] documented as of this encounter Procedures Procedure Name Priority Date/Time Associated Diagnosis Comments CBC WITH AUTO DIFF OH Routine 06/07/2021 9:16 AM DYNAMIC BALANCER SET UP WORKER LACTATE DEHYDROGENASE (LD) Routine 06/07/2021 9:16 AM DYNAMIC BALANCER SET UP WORKER Polycythemia documented in this encounter Results * (ABNORMAL) CBC WITH AUTO DIFF OH (06/07/2021 9:16 AM DYNAMIC BALANCER SET UP WORKER) WBC 7.7 4.0 - 10.0 10*3/uL [facility] HGB 16.5(H) 11.2 - 15.7 g/dL [facility] HCT 49.0(H) 34.1 - 44.9 % [facility] PLT 270 163 - 369 10*3/uL [facility] MPV 9.7 9.4 - 12.4 fL [facility] RBC 5.68(H) 3.93 - 5.22 10*6/uL [facility] MCV 86 79 - 95 fL [facility] MCH 29.0 25.6 - 32.2 pg [facility] MCHC 33.7 32.2 - 36.5 g/dL [facility] RDW 13.4 11.6 - 14.4 % [facility] Neutrophils % 66.5(H) 36.0 - 66.0 % [facility] Lymphocytes % 20.5 19.0 - 40.0 % [facility] Monocytes % 10.8 4.1 - 12.1 % [facility] Eosinophils % 0.7 0.0 - 3.5 % [facility] Basophils % 0.5 0.0 - 1.0 % [facility] Absolute Neutrophils 5.1 1.4 - 6.6 10*3/uL [facility] Absolute Lymphocytes 1.6 0.8 - 4.0 10*3/uL [facility] Absolute Monocytes 0.8 0.2 - 1.2 10*3/uL [facility] Absolute Eosinophils 0.1 0.0 - 0.4 10*3/uL [facility] Absolute Basophils 0.0 0.0 - 0.1 10*3/uL [facility] 06/07/2021 9:16 AM DYNAMIC BALANCER SET UP WORKER us Basil Staley DO LAB SEND OUTS Final Result [facility] [address] [place] [address], [place] [phone] * LACTATE DEHYDROGENASE (LD) (06/07/2021 9:16 AM DYNAMIC BALANCER SET UP WORKER) LDH 154 140 - 271 U/L [facility] Blood 06/07/2021 9:16 AM DYNAMIC BALANCER SET UP WORKER Narrative [facility] - 06/07/2021 10:13 AM DYNAMIC BALANCER SET UP WORKER Release to patient->Immediate us Basil Staley DO CHEMISTRY ORDERABLES Final Res ult Performing Organization Address City/[facility]/ZIP Co de Phone Number [facility] [address] [place] [address], documented in this encounter Visit Diagnoses Diagnosis Polycythemia Polycythemia vera documented in this encounter Additional Health Concerns Assessment Noted Time PHQ-9 Depression Total Score: 0 06/12/20 20 10:52 AM DYNAMIC BALANCER SET UP WORKER documented as of this encounter Care Teams Production Internship Relationship Specialty Start Date End Date Alex Browne MD [address] [place] [address] PCP - General Family Medicine 02/14/18 documented as of this encounter
--- OUTSIDE RECORDS SUMMARY | 2024-06-23 15:25 | XMS_ITS | Encounter Summary ---
Author Organization [employer] Care Team Providers Care Final Inspector And Tester Name Role Phone Alex Browne MD Primary Care Provider [phone] Encounter Details Date Type Department Care Team (Latest Contact Info) Description 2020 Travel Social History Tobacco Use Types Packs/Day [...] have Coronavirus / COVID-19? No / Unsure 2020 9:01 AM CDT documented as of this encounter Plan of Treatment Upcoming Encounters Date Type Department Care Team (Late st Contact Info) Description 09/06/2024 10:00 AM CDT Office Visit [facility] [address] [place] [address] Basil Staley, [address] [place] [address] documented as of this encounter Visit Diagnoses Not on filedocumented in this encounter Additional Health Concerns Infection Onset Date Last Indicated Resolved Time COVID - 19 2020 2020 04/20/2020 12:1 8 AM CDT Assessment Noted Time PHQ-9 Depression Total Score: 0 12/15/19 19 10:19 AM CDT documented as of this encounter Care Teams Final Inspector And Tester Relationship Specialty Start Date End Date Alex Browne MD [address] [place] [address] PCP - General Family Medicine 02/14/18 documented as of this encounter
--- OUTSIDE RECORDS SUMMARY | 2024-06-23 15:25 | XMS_ITS | Encounter Summary ---
Author Organization [facility] Address [address] [place] [address] Phone Care Team Providers Care Appliance Counselor Name Role Phone Alex Browne MD Primary Care Provider [phone] Encounter Details Date Type Department Care Team ([facility] Contact Info) Description 06/10/2020 10:00 AM PROFESSOR IN FAMILY STUDIES Lab [facility] [address] [phone] Lab, [facility] Iron deficiency anemia due to chronic blood loss (Primary Dx) Social History Tobacco Use Types [...] COVID-19? No / Unsure 06/12/2020 10:21 AM PROFESSOR IN FAMILY STUDIES documented as of this encounter Plan of Treatment Upcoming Encounters Date Type Department Care Team (Late Contact Info) Description 09/06/2024 10:00 AM CDT Office Visit [facility] [address] [phone] Basil Staley, DO [address] [place] [phone] documented as of this encounter Procedures Procedure Name Priority Date/Time Associated Diagnosis Comments LACTATE DEHYDROGENASE (LD) Routine 06/10/2020 8:44 AM PROFESSOR IN FAMILY STUDIES Iron deficiency anemia due to chronic blood loss CMP (COMPREHENSIVE METABOLIC PANEL) Routine 06/10/2020 8:44 AM PROFESSOR IN FAMILY STUDIES Iron deficiency anemia due to chronic blood loss COMPLETE BLOOD COUNT (CBC) WITH DIFF Routine 06/10/2020 8:44 AM PROFESSOR IN FAMILY STUDIES Iron deficiency anemia due to chronic blood loss documented in this encounter Results * LACTATE DEHYDROGENASE (LD) (06/10/2020 8:44 AM PROFESSOR IN FAMILY STUDIES) LDH 151 140 - 271 U/L [facility] Blood 06/10/2020 8:44 AM PROFESSOR IN FAMILY STUDIES Narrative [facility] - 06/10/2020 9:41 AM PROFESSOR IN FAMILY STUDIES Release to patient->Immediate us Basil Staley DO CHEMISTRY ORDERABLES Final Res ult [facility] [place] [facility] [address] [place] [address], * (ABNORMAL) CMP (COMPREHENSIVE METABOLIC PANEL) (06/10/2020 8:44 AM PROFESSOR IN FAMILY STUDIES) Glucose 217(H) 70 - 105 mg/dL [facility] [place] Blood Urea Nitrogen 14 7 - 25 mg/dL [facility] [place] Creatinine 0.9 0.6 - 1.2 mg/dL [facility] [place] Sodium 140 136 - 145 mEq/L [facility] [place] Potassium 3.8 3.5 - 5.1 mEq/L [facility] [place] Chloride 103 98 - 107 mEq/L [facility] [place] Bicarbonate 27 21 - 31 mEq/L [facility] [place] Total Bilirubin 0.5 0.3 - 1.0 mg/dL [facility] [place] Alk. Phosphatase 114(H) 34 - 104 U/L [facility] [place] Aspartate Aminotransferase 28 13 - 39 U/L [facility] [place] Alanine Aminotransferase 39 7 - 52 U/L [facility] [place] Total Protein 6.6 6.4 - 8.9 g/dL [facility] [place] Albumin 4.3 3.5 - 5.7 g/dL [facility] [place] Calcium 10.5(H) 8.6 - 10.2 mg/dL [facility] [place] Anion Gap 13.8 7.0 - 15.0 mEq/L [facility] [place] Globulin 2.3 2.0 - 3.5 g/dL [facility] [place] EGFR (Non ) >60 >60 ml/min [facility] [place] EGFR () >60 >60 ml/min [facility] [place] Blood 06/10/2020 8:44 AM PROFESSOR IN FAMILY STUDIES Narrative [facility] - 06/10/2020 9:41 AM PROFESSOR IN FAMILY STUDIES IS THE PATIENT REQUIRED TO BE FASTING FOR 8 HOURS?->No Release to patient->Immediate Basil Staley DO CHEMISTRY ORDERABLES Final Res ult [facility] [address] [place] [address], * (ABNORMAL) COMPLETE BLOOD COUNT (CBC) WITH DIFF (06/10/2020 8:44 AM PROFESSOR IN FAMILY STUDIES) WBC 5.5 4.0 - 10.0 10*3/uL [facility] [place] HGB 15.6 11.2 - 15.7 g/dL [facility] [place] HCT 47.1(H) 34.1 - 44.9 % [facility] [place] PLT 242 163 - 369 10*3/uL [facility] [place] MPV 9.8 9.4 - 12.4 fL [facility] [place] RBC 5.41(H) 3.93 - 5.22 10*6/uL [facility] [place] MCV 87 79 - 95 fL [facility] [place] MCH 28.8 25.6 - 32.2 pg [facility] [place] MCHC 33.1 32.2 - 36.5 g/dL [facility] [place] RDW 13.7 11.6 - 14.4 % [facility] Absolute Neutrophil Count 3,435 cells/uL [facility] Absolute Seg Count 3,435 1,440 - 6,600 cells/uL [facility] [place] Absolute Lymph Count 1,496 760 - 4,000 cells/uL [facility] Absolute [place] Count 499 160 - 1,200 cells/uL [facility] [place] Absolute Eos Count 111 0 - 300 cells/uL [facility] [place] Segmented Neutrophils 62 36 - 66 % [facility] [place] Lymphocytes 27 19 - 40 % [facility] Monocytes 9 4 - 12 % [facility] [place] Eosinophils 2 0 - 3 % [facility] WBC Estimate Normal [facility] [place] Platelet Estimate Normal [facility] [place] RBC Morphology Normal [facility] [place] Blood 06/10/2020 8:44 AM PROFESSOR IN FAMILY STUDIES Narrative [facility] [place] - 06/10/2020 10:00 AM PROFESSOR IN FAMILY STUDIES Release to patient->Immediate us Basil Staley DO HEMATOLOGY ORDERABLES Final Re sult [facility] [place] [address] [place] [address], documented in this encounter Visit Diagnoses Diagnosis Iron deficiency anemia due to chronic blood loss- Primary Iron deficiency anemia secondary to blood loss (chronic) documented in this encounter Additional Health Concerns Assessment Noted Time PHQ-9 Depression Total Score: 0 12/15/19 19 10:19 AM CDT documented as of this encounter Care Teams Appliance Counselor Relationship Specialty Start Date End Date Alex Browne MD [address] [place] [address] PCP - General Family Medicine 02/14/18 documented as of this encounter
--- OUTSIDE RECORDS SUMMARY | 2024-06-23 15:25 | XMS_ITS | Encounter Summary ---
Author Organization [employer] Care Team Providers Care Marine Scientist Name Role Phone Alex Browne MD Primary Care Provider [phone] Encounter Details Date Type Department Care Team (Latest Contact Info) Description 06/12/2020 Travel Social History Tobacco Use Types Packs/Day [...] COVID-19? No / Unsure 06/12/2020 10:21 AM FARM EQUIPMENT TECHNICIAN documented as of this encounter Plan of Treatment Upcoming Encounters Date Type Department Care Team (Late st Contact Info) Description 09/06/2024 10:00 AM CDT Office Visit [facility] [address] [place] [address] Basil Staley, [address] [place] [address] documented as of this encounter Visit Diagnoses Not on filedocumented in this encounter Additional Health Concerns Assessment Noted Time PHQ-9 Depression Total Score: 0 06/12/20 20 10:52 AM FARM EQUIPMENT TECHNICIAN documented as of this encounter Care Teams Marine Scientist Relationship Specialty Start Date End Date Alex Browne MD [address] [place] [address] PCP - General Family Medicine 02/14/18 documented as of this encounter
--- OUTSIDE RECORDS SUMMARY | 2024-06-23 15:25 | XMS_ITS | Encounter Summary ---
Author Organization [employer] Care Team Providers Care Bench Worker Name Role Phone Alex Browne MD Primary Care Provider [phone] Encounter Details Date Type Department Care Team (Latest Contact Info) Description 09/10/2021 Travel Social History Tobacco Use Types Packs/Day [...] suspected to have Coronavirus/COVID-19? No / Unsure 09/10/2021 9:58 AM CDT documented as of this encounter Plan of Treatment Upcoming Encounters Date Type Department Care Team (Late st Contact Info) Description 09/06/2024 10:00 AM CDT Office Visit [facility] [address] [place] [address] Basil Staley, [address] [place] [address] documented as of this encounter Visit Diagnoses Not on filedocumented in this encounter Additional Health Concerns Assessment Noted Time PHQ-9 Depression Total Score: 0 12/18/20 20 10:52 AM CAR BODY MECHANIC documented as of this encounter Care Teams Bench Worker Relationship Specialty Start Date End Date Alex Browne MD [address] [place] [address] PCP - General Family Medicine 02/14/18 documented as of this encounter
--- OUTSIDE RECORDS SUMMARY | 2024-06-23 15:25 | XMS_ITS | Encounter Summary ---
Author Organization [facility] Address [address] [facility] [place] [address] Phone Care Team Providers Care Wardrobe Specialist Name Role Phone Alex Browne MD Primary Care Provider [phone]- [phone] Reason for Visit * Reason Comments COVID-19 Encounter Details Date Type Department Care Team ([facility] Contact Info) Description 2020 11:00 AM CDT Telemedicine [facility] [address] [place] [address] Alejandra Roe, PAC [address] [place] [address] Fever, unspecified fever cause (Primary Dx); Chills; Myalgia; Weakness; Fatigue, unspecified type; Nasal congestion; Sore throat; Shortness of breath; Diarrhea, unspecified type; Hypertension, unspecified type; History of thyroid disease; History of diabetes mellitus Discharge Disposition: Discharged to home or Selfcare Social History Tobacco Use Types Packs/Day Years [...] as of this encounter Progress Notes * Alejandra Roe, PAC - 2020 11:00 AM CDT Images from the original note were not included. [facility] SUBJECTIVE Chief Complaint Patient presents with ??? COVID-19 Kristal Bustos is a 65 y.o. female with PMH HTN, thyroid disease, polycythemia, DM type 2 who presents with fever up to max of 101.9 degrees, chills, myalgias, weakness, fatigue, nasal congestion, sore throat, SOB in the evenings, diarrhea since 03/20. History obtained from . Denies known exposure to covid. Retired. Denies recent travel. Denies cough, CP, palpitations, n/v. Denies tobacco use. Denies history of asthma or allergic rhinitis. Tried ibuprofen. Has not checked BS. Allergies Allergen Reactions ??? Dust Mite Extract Runny Nose ? ? Molds & Smuts Runny Nose ??? Pollen Extract Runny Nose Past Medical History Positives Diagnosis Date ??? Abnormal liver enzymes 02/20/2018 ??? Arthritis ??? Hypertension ??? Polycythemia 02/20/2018 ??? Thyroid disease Social History Substance and Sexual Activity Alcohol Use No Social History Tobacco Use Smoking Status Former Smoker ??? Types: Cigarettes Smokeless Tobacco Never Used Current Outpatient Medications on File Prior to Visit Medication Sig Dispense Refill ??? acetaminophen (Tylenol 8 Hour) 650 MG Tablet Controlled Release Take 650 mg by mouth every 6 hours as needed. ??? cetirizine (ZYRTEC) 10 MG Tablet daily. ??? clobetasol (TEMOVATE) 0.05 % Ointment Apply 2 times daily. ??? Fenofibrate Micronized 134 MG Capsule ??? hydroCHLOROthiazide 12.5 MG Tablet ??? IBUPROFEN PO Take by mouth. ??? levothyroxine (SYNTHROID) 88 MCG Tablet Take 88 mcg by mouth daily. 0 ??? Meloxicam 15 MG Tablet ??? METFORMIN HCL PO Take by mouth. No current facility-administered medications on file prior to visit. Patient Active Problem List Diagnosis ??? Polycythemia ??? Abnormal liver enzymes Review of Systems Constitutional: Positive for chills, fatigue and fever. Negative for appetite change and diaphoresis. HENT: Positive for congestion, postnasal drip, rhinorrhea and sore throat. Negative for ear pain, facial swelling, sinus pressure, sneezing, trouble swallowing and voice change. Eyes: Negative for discharge, redness and itching. Respiratory: Positive for shortness of breath. Negative for cough, chest tightness and wheezing. Cardiovascular: Negative for chest pain and palpitations. Gastrointestinal: Negative for abdominal pain, blood in stool, constipation, diarrhea, nausea and vomiting. Musculoskeletal: Positive for myalgias. Negative for neck pain and neck stiffness. Skin: Negative for rash. Allergic/Immunologic: Negative for environmental allergies and immunocompromised state. Neurological: Positive for weakness. Negative for dizziness, light-headedness and headaches. All other systems reviewed and are negative. Chief complaint and all history documented by ancillary staff were reviewed and verified with additions or corrections as appropriate. OBJECTIVE Unable to assess Physical Exam Unable to assess ASSESSMENT/PLAN Education (as applicable): - Discussed further in-person evaluation including option of ED visit at this time. Pt declined further evaluation at this time. Pt would like to use conservative management and remain home. Discussed risks associated with this decision and pt voices understanding. - Patient counseled to remain at home unless symptoms get worse. If symptoms worsen, the patient was counseled to call back to their PCP office (or this triage line if no PCP) or go to ED immediatelyfor severe symptoms. - If symptomatic or symptoms develop within those 14 days of quarantine, stay home until these three things have happened: - No fever for 24 hours (without the use of medicine) AND - Other symptoms have improved (ie cough, SOB) AND - at least 10 days have passed since your symptoms first appeared - Patient to push fluid intake and take Tylenol PRN for fever, body aches. - If you do not live alone: segregate yourself, use a separate bathroom if possible, sleep in a separate area, have no/limited family time, and the person with symptoms is not to prepare food for others. - Per CDC: Employers should not require a positive COVID-19 test result or a healthcare provider's note for employees who are sick to validate their illness, qualify for sick leave, or to return to work. [facility] is not providing excuse for work notes or return to work notes at this time per CDC recommendations. Caller verbalizes understanding of the above information. Recommended disposition of Home self-care supported by the above documentation. Patient agreed withdisposition. Diagnoses and all orders for this visit: Fever, unspecified fever cause - SARS-COV-2 BY PCR Chills - SARS-COV-2 BY PCR Myalgia - SARS-COV-2 BY PCR Weakness - SARS-COV-2 BY PCR Fatigue, unspecified type - SARS-COV-2 BY PCR Nasal congestion - SARS-COV-2 BY PCR Sore throat - SARS-COV-2 BY PCR Shortness of breath - SARS-COV-2 BY PCR Diarrhea, unspecified type - SARS-COV-2 BY PCR [facility] notified patient needs to be scheduled for COVID testing Patient was assessed via telephone for a duration of 0-15 minutes. Patient verbally consented for this service to be performed. - Alejandra Roe, PAC documented in this encounter Plan of Treatment Upcoming Encounters Date Type Department Care Team (Late st Contact Info) Description 09/06/2024 10:00 AM CDT Office Visit [facility] [address] [address] Basil Staley, [address] [place] [phone] documented as of this encounter Procedures Procedure Name Priority Date/Time Associated Diagnosis Comments SARS-COV-2 BY MOLECULAR Routine 2020 11:01 AM CDT Fever, unspecified fever cause Chills Myalgia Weakness Fatigue, unspecified type Nasal congestion Sore throat Shortness of breath Diarrhea, unspecified type documented in this encounter Results * SARS-COV-2 BY PCR (2020 11:01 AM CDT) SARSCOV2 NOT DETECTED (Referenc e Range for this test is Not Detected) [facility] THERMOF[facility] FAST DX 03/24/2020 3:33 PM CDT [facility] Swab NASOPHARYNGEAL STRUCTURE / Unknown Non-Phlebotomy Collection / Unknown 2020 11:01 AM CDT 2020 11:01 AM CDT Narrative [facility] - 03/24/2020 3:33 PM CDT Authorized Fact Sheets about this test for providers and patients are available at: https://www.fda.gov/medical-devices/ljqfyyuys-rxxszpaiem-dsjbqlq-devices/emergen cy-us e-authorizations us Alejandra BRIDGES MICROBIOLOGY - GENERAL OR DERABLES Final Result [facility] [address] [place] [address], documented in this encounter Visit Diagnoses Diagnosis Fever, unspecified fever cause- Primary Chills Chills (without fever) Myalgia Mylagia and myositis, unspecified Weakness Other malaise and fatigue Fatigue, unspecified type Nasal congestion Other diseases of nasal cavity and sinuses Sore throat Acute pharyngitis Shortness of breath Diarrhea, unspecified type Hypertension, unspecified type History of thyroid disease Personal history of other endocrine, metabolic, and immunity disorders History of diabetes mellitus Personal history of other endocrine, metabolic, and immunity disorders documented in this encounter Additional Health Concerns Infection Onset Date Last Indicated Resolved Time COVID - 19 2020 2020 04/20/2020 12:1 8 AM CDT Assessment Noted Time PHQ-9 Depression Total Score: 0 12/15/19 19 10:19 AM CDT documented as of this encounter Care Teams Wardrobe Specialist Relationship Specialty Start Date End Date Alex Browne MD [address] [place] [address] PCP - General Family Medicine 02/14/18 documented as of this encounter
--- OUTSIDE RECORDS SUMMARY | 2024-06-23 15:25 | XMS_ITS | Encounter Summary ---
Author Organization [facility] Address [address] [place] [address] Phone Care Team Providers Care Front Desk Manager Name Role Phone Alex Browne MD Primary Care Provider [phone]- [phone] Reason for Referral * Radiology Services (Routine) - Closed Specialty Diagnoses / Procedures Referred By Michelle lozano Referred To Contact Radiology Diagnoses Chronic cough Procedures XR CHEST 2 VIEWS Ann Sullivan APRN, CASS [address] [place] [address] Phone: tel: fax: Referral ID Status Reason Start Date Expiration Date Visits Re quested Visits Authorized [id number] Closed 09/09/2022 1 1 Reason for Visit * Reason Comments Follow-up Encounter Details Date Type Department Care Team (Late st Contact Info) Description 09/09/2022 10:30 AM CDT Office Visit [facility] [address] [phone] Ann Sullivan, ANISA, CASINO DUTY MANAGER [address] [place] [phone] Secondary polycythemia (Primary Dx); Chronic cough Social History Tobacco Use Types Packs/Day Years Used Date Smoking Tobacco: Former Cigarettes Smokeless Tobacco: Never Tobacco Cessation:Counseling Given: Not Answered Alcohol Use Standard Drinks/Week Comments No 0 [...] Sign Reading Time Taken Comments Blood Pressure 140/82 09/09/2022 11:16 AM CDT Pulse 60 09/09/2022 11:16 AM CDT Temperature 36.4 ??C (97.5 ??F) 09/09/2022 1 1:16 AM CDT Respiratory Rate 18 09/09/2022 11:1 6 AM CDT Oxygen Saturation 98% 09/09/2022 11: 16 AM CDT Inhaled Oxygen Concentration - - Weight 128.4 kg (283 lb 1.6 oz) 023 11:16 AM CDT Height 162.6 cm (5' 4 ) 09/09/2022 11:1 6 AM CDT Body Mass Index 48.59 09/09/2022 11:16 AM CDT documented in this encounter Functional Status * Question Answer Date of Assessment Author Little interest or pleasure in doing things Not at all 09/09/2022 11:16 AM CDT Kings Garrisona A, RMA Feeling down, depressed, or hopeless Not at all 09/09/2022 11:16 AM CDT Bladimir, Yasmeen A, RMA * Over the past 2 weeks, how often have you been bothered by any of the following problems? Question Answer Date of Assessment Author Patient Health Questionnaire -2 Score 0 09/09/2022 11:16 AM CDT Bladimir Yasmeen A, RMA documented as of this encounter Progress Notes * Ann Orona, DRAW HAND, CASINO DUTY MANAGER - 09/09/2022 10:30 AM CDT Images from the original note were not included. Patient: Kristal Bustos Age: 67 y.o. : 1955 Encounter Dept: [facility] Encounter Date: 09/09/2022 Care Team: Current Providers PCP: Alex Browne MD Encounter Provider: Ann Orona APRN, CNP Referring Provider: not found Nurse Practitioner: Ann Orona APRN, CNP PATIENT IDENTIFICATION: This patient is a very pleasant 66-year-old female. HISTORY OF PRESENT ILLNESS: Ms. Kristal Bustos returns to clinic for follow-up of her polycythemiasecondary to sleep apnea. Since her last visit, Kristal states she has been doing fairly well. She has had a dry cough and some shortness of breath for the last four months. She was started on Lisinopril around that time. However, patient is not sure if she actually started it or not. She saw her PCP at the end of July, and was referred for PFT's to rule out COPD. Since seeing her PCP, she has for certain started the Lisinopril and feels her cough has worsened. The cough is dry. No mucous production. She also develops cold sweats after the coughing spells. She has tried Flonase and Zyrtec with not much relief. She continues to wear her CPAP, but the coughing is making it difficult. She denies any fevers, chest pain, abdominal pain, or bleeding. She stopped smoking back in 1997. DIAGNOSIS: 1. Polycythemia likely secondary sleep apnea PAST TREATMENT: 1. None. CURRENT TREATMENT: 1. CPAP for sleep apnea. 2. Thiazide diuretic. TREATMENT GUIDELINES: Not applicable. PROGNOSIS: Not applicable. EXPECTED RESPONSE TO TREATMENT: Not applicable. EXPECTED QUALITY OF LIFE DURING TREATMENT: Not applicable. ECOG: Not applicable. PAIN: No pain. PLAN FOR PAIN: Not applicable. CODE STATUS: Not addressed. END OF LIFE: ASSESSMENT: 1. Polycythemia, JAK2 negative, likely secondary to diuretics and sleep apnea, undiagnosed. 2. Steatohepatitis. PLAN: 1. At this time, I discussed with Kristal that clinically she is doing stable. 2. Repeat CBC today. 3. Continue CPAP for obstructive sleep apnea. 4. I will send her for a chest x-ray for her cough to rule out infectious process. I do suspect loraine could be secondary to her Lisinopril since it is a dry cough. I instructed her to stop the medication and we will see if the cough improves. I will update her PCP. They may need to consider switching her to an ARB. 5. I will have the patient return to clinic for follow-up with office visit in one year. 6. I encouraged the patient to call with any questions, problems, or concerns that she may have. Dr. Staley was present in the clinic to answer any questions. TIME SPENT: REVIEW OF SYSTEMS: See HPI; otherwise, 12-point [...] spine tenderness. LABORATORY/PATHOLOGY/IMAGING NOTES: 1. CBC shows white count 3.7, hemoglobin 14.2, hematocrit 42.9, platelets 215. 2. Ultrasound shows no tumors in liver, kidneys, abdomen. It does show steatohepatitis. 3. JAK2 negative. 4. EPO normal. Basil Staley DO, IJEOMA Orona, DNP, TEST DESK SUPERVISOR-BC Vitals: Vitals: 09/09/22 1116 BP: 140/82 BP Location: Left Arm BP Position: Sitting BP Cuff Size: Regular Pulse: 60 Resp: 18 Temp: 97.5 ??F (36.4 ??C) TempSrc: Temporal SpO2: 98% Weight: 283 lb 1.6 oz (128.4 kg) Height: 5' 4 (1.626 m) Body surface area is 2.41 meters squared. Body mass index is 48.59 kg/m??. Pain Score: 0 - No pain Allergies: Allergies Allergen Reactions ??? Dust Mite [...] History Socioeconomic History ??? Marital status: Unknown Tobacco Use ??? Smoking status: Former Types: Cigarettes ??? Smokeless tobacco: Never Vaping Use ??? [...] tracked chemicals: Doxorubicin, Epirubicin, Idarubicin, Daunorubicin, Mitoxantrone, Bleomycin, Ifosfamide, Methotrexate, Cyclophosphamide, Cisplatin, Carboplatin Current Medications: Outpatient Encounter Medications as of 09/09/2022 Medication Sig Dispense Refill ??? acetaminophen (TYLENOL) 650 MG Tablet Controlled Release Take 650 mg by mouth every 6 hours as needed. ??? [DISCONTINUED] aspirin EC 81 MG Tablet Delayed Response Take 81 mg by mouth. ??? busPIRone (BUSPAR) 10 MG Tablet Take 10 mg by mouth. ??? cetirizine (ZYRTEC) 10 MG Tablet daily. ??? clobetasol (TEMOVATE) 0.05 % Ointment Apply 2 times daily. ??? [DISCONTINUED] cyclobenzaprine (FLEXERIL) 10 MG Tablet Take 10 mg by mouth 3 times daily as needed. ??? [DISCONTINUED] docusate sodium 100 MG Capsule ??? DULoxetine (CYMBALTA) [address] Particles ??? Fenofibrate Micronized 134 MG Capsule ??? fluticasone (FLONASE) 50 MCG/ACT Suspension 2 Sprays by Nasal route. ??? glipiZIDE (GLUCOTROL XL) 10 MG TABLET SR 24 HR TAKE 1 TABLET BY MOUTH TWICE DAILY. DO NOT BREAKOR CRUSH TABLET ??? glucosamine-chondroitin 500-400 MG Capsule Take 1 Capsule by mouth 3 times daily. ??? hydroCHLOROthiazide 25 MG Tablet Take 25 mg by mouth daily. ??? levothyroxine (SYNTHROID) 100 MCG Tablet Take 100 mcg by mouth daily. 0 ??? lisinopril (PRINIVIL, ZESTRIL) 10 MG Tablet Take 10 mg by mouth. ??? metFORMIN (GLUCOPHAGE) 500 MG Tablet Take 500 mg by mouth daily. ??? Multiple Vitamin (MULTIVITAMIN PO) Take by mouth. ??? nystatin [id number] UNIT/GM Powder Apply. ??? [DISCONTINUED] sulfamethoxazole-trimethoprim DS (Bactrim DS) 800-160 MG Tablet Take 1 Tablet bymouth 2 times daily. No facility-administered encounter medications on file as of 09/09/2022. Labs: No visits with results within 7 Day(s) from this visit. Latest known visit with results is: Lab on 09/10/2021 Component Date Value Ref Range Status ??? Glucose 09/10/2021 257 (H) 70 - 105 mg/dL Final ??? Blood Urea Nitrogen 09/10/2021 16 7 - 25 mg/dL Final ??? Creatinine 09/10/2021 0.8 0.6 - 1.2 mg/dL Final ??? Sodium 09/10/2021 140 136 - 145 mEq/L Final ??? Potassium 09/10/2021 3.8 3.5 - 5.1 mEq/L Final ??? Chloride 09/10/2021 105 98 - 107 mEq/L Final ??? Bicarbonate 09/10/2021 27 21 - 31 mEq/L Final ??? Total Bilirubin 09/10/2021 0.6 0.3 - 1.0 mg/dL Final ??? Alk. Phosphatase 09/10/2021 111 (H) 34 - 104 U/L Final ??? Aspartate Aminotransferase 09/10/2021 44 (H) 13 - 39 U/L Final ??? Alanine Aminotransferase 09/10/2021 47 7 - 52 U/L Final ??? Total Protein 09/10/2021 6.7 6.4 - 8.9 g/dL Final ??? Albumin 09/10/2021 4.2 3.5 - 5.7 g/dL Final ??? Calcium 09/10/2021 9.9 8.6 - 10.3 mg/dL Final ??? Anion Gap 09/10/2021 11.8 7.0 - 15.0 mEq/L Final ??? Globulin 09/10/2021 2.5 2.0 - 3.5 g/dL Final ? ? EGFR 09/10/2021 81 >60 ml/min/1.73m2 Final Comment: This eGFR is calculated using 2020 CKD-EPI Creatinine equation without race modifier based on the NKF-ASN task force recommendations ??? WBC 09/10/2021 3.7 (L) 4.0 - 10.0 10*3/uL Final ??? HGB 09/10/2021 14.2 11.2 - 15.7 g/dL Final ??? HCT 09/10/2021 42.9 34.1 - 44.9 % Final ??? PLT 09/10/2021 215 163 - 369 10*3/uL Final ??? MPV 09/10/2021 9.6 9.4 - 12.4 fL Final ??? RBC 09/10/2021 4.93 3.93 - 5.22 10*6/uL Final ??? MCV 09/10/2021 87 79 - 95 fL Final ??? MCH 09/10/2021 28.8 25.6 - 32.2 pg Final ??? MCHC 09/10/2021 33.1 32.2 - 36.5 g/dL Final ??? RDW 09/10/2021 14.8 (H) 11.6 - 14.4 % Final ??? Absolute Neutrophil Count 09/10/2021 2,239 cells/uL Final ??? Absolute Seg Count 09/10/2021 2,239 1,440 - 6,600 cells/uL Final ??? Absolute Lymph Count 09/10/2021 1,138 760 - 4,000 cells/uL Final ??? Absolute Dukes Count 09/10/2021 110 (L) 160 - 1,200 cells/uL Final ??? Absolute Eos Count 09/10/2021 184 0 - 300 cells/uL Final ??? Segmented Neutrophils 09/10/2021 61 36 - 66 % Final ??? Lymphocytes 09/10/2021 31 19 - 40 % Final ??? Monocytes 09/10/2021 3 (L) 4 - 12 % Final ??? Eosinophils 09/10/2021 5 (H) 0 - 3 % Final ??? WBC Estimate 09/10/2021 Normal Final ??? Platelet Estimate 09/10/2021 Normal Final ??? RBC Morphology 09/10/2021 Normal Final Cosigned by Basil Staley DO at 09/13/2022 9:37 PM CDT documented in this encounter Plan of Treatment Upcoming Encounters Date Type Department Care Team (Late st Contact Info) Description 09/06/2024 10:00 AM CDT Office Visit [facility] [address] [phone] Basil Staley DO [address] [place] [phone] Scheduled Orders Name Type Priority Associated Diagnoses Orde r Schedule XR CHEST 2 VIEWS Imaging Routine Chronic cough Expected: 09/09/2022, Expires: 12/08/2022 documented as of this encounter Results * (ABNORMAL) COMPLETE BLOOD COUNT (CBC) WITH DIFF (09/09/2022 12:01 PM CDT) WBC 6.6 4.0 - 10.0 10*3/uL [facility] HGB 15.4 11.2 - 15.7 g/dL [facility] HCT 46.1(H) 34.1 - 44.9 % [facility] PLT 245 163 - 369 10*3/uL [facility] MPV 10.1 9.4 - 12.4 fL [facility] RBC 5.34(H) 3.93 - 5.22 10*6/uL [facility] MCV 86 79 - 95 fL [facility] MCH 28.8 25.6 - 32.2 pg [facility] MCHC 33.4 32.2 - 36.5 g/dL [facility] RDW 13.8 11.6 - 14.4 % [facility] Absolute Neutrophil Count 4,271 cells/uL [facility] Absolute Seg Count 4,271 1,440 - 6,600 cells/uL [facility] Absolute Lymph Count 1,708 760 - 4,000 cells/uL [facility] Absolute Dukes Count 460 160 - 1,200 cells/uL [facility] Absolute Eos Count 131 0 - 300 cells/uL [facility] Segmented Neutrophils 65 36 - 66 % [facility] Lymphocytes 26 19 - 40 % [facility] Monocytes 7 4 - 12 % [facility] Eosinophils 2 0 - 3 % [facility] [place] WBC Estimate Normal [facility] Platelet Estimate Normal [facility] RBC Morphology Normal [facility] Blood 09/09/2022 12:0 1 PM CDT Narrative [facility] - 09/09/2022 3:05 PM CDT Release to patient->Immediate us Ann Sullivan DRAW HAND, CASINO DUTY MANAGER HEMATOLOGY ORDERA BLES Final Result [facility] [address] [place] [address], documented in this encounter Visit Diagnoses Diagnosis Secondary polycythemia- Primary Polycythemia, secondary Chronic cough Cough Secondary polycythemia Polycythemia, secondary documented in this encounter Additional Health Concerns Assessment Noted Time PHQ-9 Depression Total Score: 0 06/12/20 10:52 AM DIRECTOR OF ARCHIVES documented as of this encounter Care Teams Front Desk Manager Relationship Specialty Start Date End Date Alex Browne MD [address] [place] [address] PCP - General Family Medicine 02/14/18 documented as of this encounter
--- OUTSIDE RECORDS SUMMARY | 2024-06-23 15:25 | XMS_ITS | Encounter Summary ---
Author Organization [facility] Address [address] [place] [address] Phone Care Team Providers Care Avionics Electronics Technician Name Role Phone Alex Browne MD Primary Care Provider [phone]- [phone] Encounter Details Date Type Department Care Team (Late Contact Info) Description 09/10/2021 10:15 AM CDT Lab [facility] [address] [phone] Lab, [facility] Secondary polycythemia Social History Tobacco Use [...] AM CDT Office Visit [facility] [address] [phone] Basil Staley, DO [address] [place] [phone] documented as of this encounter Procedures Procedure Name Priority Date/Time Associated Diagnosis Comments CMP (COMPREHENSIVE METABOLIC PANEL) Routine 09/10/2021 10:02 AM CDT Secondary polycythemia COMPLETE BLOOD COUNT (CBC) WITH DIFF Routine 09/10/2021 10:02 AM CDT Secondary polycythemia documented in this encounter Results * (ABNORMAL) COMPLETE BLOOD COUNT (CBC) WITH DIFF (09/10/2021 10:02 AM CDT) WBC 3.7(L) 4.0 - 10.0 10*3/uL [facility] HGB 14.2 11.2 - 15.7 g/dL [facility] HCT 42.9 34.1 - 44.9 % [facility] PLT 215 163 - 369 10*3/uL [facility] MPV 9.6 9.4 - 12.4 fL [facility] RBC 4.93 3.93 - 5.22 10*6/uL [facility] MCV 87 79 - 95 fL [facility] MCH 28.8 25.6 - 32.2 pg [facility] MCHC 33.1 32.2 - 36.5 g/dL [facility] RDW 14.8(H) 11.6 - 14.4 % [facility] Absolute Neutrophil Count 2,239 cells/uL [facility] Absolute Seg Count 2,239 1,440 - 6,600 cells/uL [facility] Absolute Lymph Count 1,138 760 - 4,000 cells/uL [facility] Absolute Cecil Count 110(L) 160 - 1,200 cells/uL [facility] Absolute Eos Count 184 0 - 300 cells/uL [facility] Segmented Neutrophils 61 36 - 66 % [facility] Lymphocytes 31 19 - 40 % [facility] Monocytes 3(L) 4 - 12 % [facility] Eosinophils 5(H) 0 - 3 % [facility] WBC Estimate Normal [facility] Platelet Estimate Normal [facility] RBC Morphology Normal [facility] Blood 09/10/2021 10:0 2 AM CDT Narrative [facility] - 09/10/2021 10:49 AM CDT Release to patient->Immediate Jonathan Crews PAC HEMATOLOGY ORDERABLES Re l Result [facility] [address] [place] [address], * (ABNORMAL) CMP (COMPREHENSIVE METABOLIC PANEL) (09/10/2021 10:02 AM CDT) Glucose 257(H) 70 - 105 mg/dL [facility] Blood Urea Nitrogen 16 7 - 25 mg/dL [facility] Creatinine 0.8 0.6 - 1.2 mg/dL [facility] Sodium 140 136 - 145 mEq/L [facility] Potassium 3.8 3.5 - 5.1 mEq/L [facility] Chloride 105 98 - 107 mEq/L [facility] Bicarbonate 27 21 - 31 mEq/L [facility] Total Bilirubin 0.6 0.3 - 1.0 mg/dL [facility] Alk. Phosphatase 111(H) 34 - 104 U/L [facility] Aspartate Aminotransferase 44(H) 13 - 39 U/L [facility] Alanine Aminotransferase 47 7 - 52 U/L [facility] Total Protein 6.7 6.4 - 8.9 g/dL [facility] Albumin 4.2 3.5 - 5.7 g/dL [facility] Calcium 9.9 8.6 - 10.3 mg/dL [facility] Anion Gap 11.8 7.0 - 15.0 mEq/L [facility] Globulin 2.5 2.0 - 3.5 g/dL [facility] EGFR 81 >60 ml/min/1. 73m2 [facility] Comment: This eGFR is calculated using 2020 CKD-EPI Creatinine equation without race modifier based on the NKF-ASN task force recommendations Blood 09/10/2021 10:0 2 AM CDT Narrative [facility] - 09/10/2021 10:51 AM CDT IS THE PATIENT REQUIRED TO BE FASTING FOR 8 HOURS?->No Release to patient->Immediate us Jonathan Crews PAC CHEMISTRY ORDERABLES Final Result [facility] [address] [address], documented in this encounter Visit Diagnoses Diagnosis Secondary polycythemia Polycythemia, secondary documented in this encounter Additional Health Concerns Assessment Noted Time PHQ-9 Depression Total Score: 0 06/12/20 20 10:52 AM BUILDING ARCHITECT documented as of this encounter Care Teams Avionics Electronics Technician Relationship Specialty Start Date End Date Alex Browne MD [address] [place] [address] PCP - General Family Medicine 02/14/18 documented as of this encounter
--- OUTSIDE RECORDS SUMMARY | 2024-06-23 15:25 | XMS_ITS | Encounter Summary ---
Author Organization [facility] Address [address] [place] [address] Phone Care Team Providers Care Justice Court Judge Name Role Phone Alex Browne MD Primary Care Provider [phone]- [phone] Encounter Details Date Type Department Care Team (Late st Contact Info) Description 06/17/2019 Telephone [facility] [address] [place] [phone] Basil Staley, DO [address] [place] [phone] Social History Tobacco Use Types Packs/Day Years [...] as of this encounter Miscellaneous Notes * Telephone Encounter - Iesha Grullon, RN - 06/17/2019 9:51 AM CST Patient returned call to office. Informed her of Dr. Staley's note below. Appointment made for CBC in 3 months. Appointment time mailed to patient. OR RESIDENT CARE DIRECTOR * Telephone Encounter - Yael De Luna - 06/17/2019 8:26 AM CST Spoke with and patient was still sleeping. He will have her call the office when she wakes OR RESIDENT CARE DIRECTOR * Telephone Encounter - Yael De Luna - 06/17/2019 8:25 AM CST ----- Message from Basil Staley DO sent at 06/14/2019 3:12 PM SENIOR RESIDENT CARE DIRECTOR ----- Let patient know hct trending up slightly. Possibly due to diuretic. Keep fu as scheduled. Please order cbc q 3 months until I see again. If hct rises more significantly may consider further lab eval OR RESIDENT CARE DIRECTOR documented in this encounter Plan of Treatment Upcoming Encounters Date Type Department Care Team (Late st Contact Info) Description 09/06/2024 10:00 AM CDT Office Visit [facility] [address] [place] [phone] Basil Staley DO [address] [place] [phone] documented as of this encounter Visit Diagnoses Not on filedocumented in this encounter Additional Health Concerns Assessment Noted Time PHQ-9 Depression Total Score: 0 12/15/19 19 10:19 AM CDT documented as of this encounter Care Teams Justice Court Judge Relationship Specialty Start Date End Date Alex Browne MD [address] [place] [id number] PCP - General Family Medicine 02/14/18 documented as of this encounter
--- OUTSIDE RECORDS SUMMARY | 2024-06-23 15:25 | XMS_ITS | Encounter Summary ---
Author Organization [facility] Address [address] [place] [address] Phone Care Team Providers Care Pharmaceutical Process Engineer Name Role Phone Alex Browne MD Primary Care Provider [phone] Encounter Details Date Type Department Care Team ([facility] Contact Info) Description 12/17/2019 8:45 AM CDT Lab [facility] [address] [phone] Lab, [facility] Iron deficiency anemia due to chronic blood [...] have Coronavirus / COVID-19? No / Unsure 12/17/2019 8:53 AM CDT documented as of this encounter Plan of Treatment Upcoming Encounters Date Type Department Care Team (Late Contact Info) Description 09/06/2024 10:00 AM CDT Office Visit [facility] [address] [phone] Basil Staley, DO [address] [place] [phone] documented as of this encounter Procedures Procedure Name Priority Date/Time Associated Diagnosis Comments LACTATE DEHYDROGENASE (LD) Routine 12/17/2019 9:05 AM CDT Iron deficiency anemia due to chronic blood loss CMP (COMPREHENSIVE METABOLIC PANEL) Routine 12/17/2019 9:05 AM CDT Iron deficiency anemia due to chronic blood loss COMPLETE BLOOD COUNT (CBC) WITH DIFF Routine 12/17/2019 9:05 AM CDT Iron deficiency anemia due to chronic blood loss documented in this encounter Results * LACTATE DEHYDROGENASE (LD) (12/17/2019 9:05 AM CDT) LDH 150 140 - 271 U/L [facility] Blood 12/17/2019 9:05 AM CDT us Basil Staley DO CHEMISTRY ORDERABLES Final Res ult [facility] [address] [place] [address], * (ABNORMAL) CMP (COMPREHENSIVE METABOLIC PANEL) (12/17/2019 9:05 AM CDT) Glucose 211(H) 70 - 105 mg/dL [facility] Blood Urea Nitrogen 15 7 - 25 mg/dL [facility] Creatinine 0.9 0.6 - 1.2 mg/dL [facility] Sodium 139 136 - 145 mEq/L [facility] Potassium 3.8 3.5 - 5.1 mEq/L [facility] Chloride 102 98 - 107 mEq/L [facility] Bicarbonate 27 21 - 31 mEq/L [facility] Total Bilirubin 0.6 0.3 - 1.0 mg/dL [facility] Alk. Phosphatase 130(H) 34 - 104 U/L [facility] Aspartate Aminotransferase 30 13 - 39 U/L [facility] Alanine Aminotransferase 46 7 - 52 U/L [facility] Total Protein 6.5 6.4 - 8.9 g/dL [facility] Albumin 4.3 3.5 - 5.7 g/dL [facility] Calcium 10.2 8.6 - 10.2 mg/dL [facility] Anion Gap 13.8 7.0 - 15.0 mEq/L [facility] Globulin 2.2 2.0 - 3.5 g/dL [facility] EGFR (Non ) >60 >60 ml/min [facility] EGFR () >60 >60 ml/min [facility] Blood 12/17/2019 9:05 AM CDT us Basil Staley DO CHEMISTRY ORDERABLES Final Res ult [facility] [address] [place] [address], * (ABNORMAL) COMPLETE BLOOD COUNT (CBC) WITH DIFF (12/17/2019 9:05 AM CDT) WBC 3.8(L) 4.0 - 10.0 10*3/uL [facility] HGB 15.9(H) 11.2 - 15.7 g/dL [facility] HCT 48.9(H) 34.1 - 44.9 % [facility] PLT 211 163 - 369 10*3/uL [facility] MPV 9.9 9.4 - 12.4 fL [facility] RBC 5.53(H) 3.93 - 5.22 10*6/uL [facility] MCV 88 79 - 95 fL [facility] MCH 28.8 25.6 - 32.2 pg [facility] MCHC 32.5 32.2 - 36.5 g/dL [facility] RDW 13.5 11.6 - 14.4 % [facility] Absolute Neutrophil Count 1,913 cells/uL [facility] Absolute Seg Count 1,913 1,440 - 6,600 cells/uL [facility] Absolute Lymph Count 1,425 760 - 4,000 cells/uL [facility] Absolute [place] Count 263 160 - 1,200 cells/uL [facility] Absolute Eos Count 113 0 - 300 cells/uL [facility] Absolute Baso Count 38 0 - 100 cells/uL [facility] Segmented Neutrophils 51 36 - 66 % [facility] Lymphocytes 38 19 - 40 % [facility] [place] Monocytes 7 4 - 12 % [facility] Eosinophils 3 0 - 3 % [facility] [place] Basophils 1 0 - 1 % [facility] WBC Estimate Low [facility] Platelet Estimate Normal [facility] RBC Morphology Normal [facility] Large Platelets Present [facility] Blood 12/17/2019 9:05 AM CDT us Basil Staley DO HEMATOLOGY ORDERABLES Final Re sult [facility] [address] [place] [address], documented in this encounter Visit Diagnoses Diagnosis Iron deficiency anemia due to chronic blood loss- Primary Iron deficiency anemia secondary to blood loss (chronic) documented in this encounter Additional Health Concerns Assessment Noted Time PHQ-9 Depression Total Score: 0 12/15/19 19 10:19 AM CDT documented as of this encounter Care Teams Pharmaceutical Process Engineer Relationship Specialty Start Date End Date Alex Browne MD [address] [place] [address] PCP - General Family Medicine 02/14/18 documented as of this encounter
--- OUTSIDE RECORDS SUMMARY | 2024-06-23 15:25 | XMS_ITS | Encounter Summary ---
Author Organization [facility] Care Team Providers Care Best Worker Name Role Phone Alex Browne MD Primary Care Provider [phone] Encounter Details Date Type Department Care Team (Latest Contact Info) Description 06/07/2021 Travel Social History Tobacco Use Types Packs/Day [...] COVID-19? No / Unsure 06/07/2021 9:14 AM CANCER GENETICS ASSISTANT documented as of this encounter Plan of Treatment Upcoming Encounters Date Type Department Care Team (Late st Contact Info) Description 09/06/2024 10:00 AM CDT Office Visit [facility] [place] [address] [place] [address] Basil Staley DO [address] [place] [address] documented as of this encounter Visit Diagnoses Not on filedocumented in this encounter Additional Health Concerns Assessment Noted Time PHQ-9 Depression Total Score: 0 06/12/20 10:52 AM CANCER GENETICS ASSISTANT documented as of this encounter Care Teams Best Worker Relationship Specialty Start Date End Date Alex Browne MD [address] [place] [address] PCP - General Family Medicine 02/14/18 documented as of this encounter
--- OUTSIDE RECORDS SUMMARY | 2024-06-23 15:25 | XMS_ITS | Encounter Summary ---
Author Organization [facility] [employer] [facility] Care Team Providers Care Gospel Worker Name Role Phone Alex Browne MD Primary Care Provider [phone] Encounter Details Date Type Department Care Team (Latest Contact Info) Description 09/06/2019 Travel Social History Tobacco Use Types Packs/Day [...] CDT Office Visit [facility] [place] [address] [place] [address] Basil Staley DO [address] [place] [phone] documented as of this encounter Visit Diagnoses Not on filedocumented in this encounter Additional Health Concerns Assessment Noted Time PHQ-9 Depression Total Score: 0 12/15/19 19 10:19 AM CDT documented as of this encounter Care Teams Gospel Worker Relationship Specialty Start Date End Date Alex Browne MD [address] [place] [id number] PCP - General Family Medicine 02/14/18 documented as of this encounter
--- OUTSIDE RECORDS SUMMARY | 2024-06-23 15:25 | XMS_ITS | Encounter Summary ---
Author Organization [facility] Address [address] [place] [address] Phone Care Team Providers Care Roll Icer Machine Name Role Phone Alex Browne MD Primary Care Provider [phone] Reason for Visit * Reason Comments Follow-up Encounter Details Date Type Department Care Team (Late st Contact Info) Description 09/08/2023 10:30 AM CDT Office Visit [facility] [place] [address] [place] [phone] Ann Sullivan, FARO DEALER, KNOT CUTTER [address] [place] [address] Secondary polycythemia (Primary Dx) Social History Tobacco Use Types [...] Mass Index 47.58 09/08/2023 10:51 AM CDT documented in this encounter Functional Status * Question Answer Date of Assessment Author Little interest or pleasure in doing things Not at all 09/08/2023 10:49 AM CDT Bladimir, Yasmeen A, RMA Feeling down, depressed, or hopeless Not at all 09/08/2023 10:49 AM CDT Bladimir Yasmeen A, RMA * Over the past 2 weeks, how often have you been bothered by any of the following problems? Question Answer Date of Assessment Author Patient Health Questionnaire -2 Score 0 09/08/2023 10:49 AM CDT Bladimir Yasmeen A, RMA documented as of this encounter Progress Notes * Ann Sullivan APRN, CNP - 09/08/2023 10:30 AM CDT Images from the original note were not included. Patient: Kristal Bustos Age: 68 y.o. : 1955 Encounter Dept: [facility] Encounter Date: 09/08/2023 Care Team: Current Providers PCP: Alex Browne MD Encounter Provider: Ann Orona APRN, CNP Referring Provider: not found Nurse Practitioner: Ann Orona APRN, CNP PATIENT IDENTIFICATION: This patient is a very pleasant 68-year-old female. HISTORY OF PRESENT ILLNESS: Ms. Kristal Bustos returns to clinic for follow-up of her polycythemiasecondary to sleep apnea. Since her last visit, Kristal states she has been doing fairly well. Her cough she reported at her last visit was secondary to her Lisinopril. Her blood pressure medication has been changed and she is no longer reporting a cough. Patient continues to use a CPAP for her NIRANJAN. However, she states here recently there has been a problem with it. She is in the process of getting a new CPAP, which should be in the beginning of September. DIAGNOSIS: 1. Polycythemia likely secondary sleep apnea [...] with Kristal that clinically she is doing well. 2. Laboratory evaluation from 08/24/23 showed a white blood cell count of 5.3, hemoglobin 16.0, hematocrit 47.1, and platelet count of 290,000. Creatinine 0.90. 3. H/H is back up slightly. This is most likely to due to the fact that patient's CPAP has been malfunctioning. She is currently in the process of getting a new CPAP. 4. I will have the patient return to clinic for follow-up with office visit in one year. 5. I encouraged the patient to call with [...] effusion. No spine tenderness. LABORATORY/PATHOLOGY/IMAGING NOTES: 1. Ultrasound shows no tumors in liver, kidneys, abdomen. It does show steatohepatitis. 2. JAK2 negative. 3. EPO normal. Basil Staley, DO, IJEOMA Orona, DNP, CUT OFF MACHINE UNLOADER- Vitals: Vitals: 09/08/23 1051 BP: 130/84 BP Location: Left Arm BP Position: Sitting BP Cuff Size: Regular Pulse: 71 Resp: 18 Temp: 97.8 ??F (36.6 ??C) TempSrc: Temporal SpO2: 96% Weight: 277 lb 3.2 oz (125.7 kg) Height: 5' 4 (1.626 m) Body surface area is 2.38 meters squared. Body mass index is 47.58 kg/m??. Pain Score: 0 - No pain [...] Procedure Laterality Date ??? BLADDER SUSPENSION ??? CATARACT REMOVAL Bilateral 06/2023,07/2023 ??? SECTION ??? [facility] ENDO CARPEL [...] Current Medications: Outpatient Encounter Medications as of 09/08/2023 Medication Sig Dispense Refill ??? acetaminophen (TYLENOL) 650 MG Tablet Controlled Release Take 650 mg by mouth every 6 hours as needed. ??? busPIRone (BUSPAR) 10 MG Tablet Take 10 mg by mouth. ??? cetirizine (ZYRTEC) 10 MG Tablet daily. ??? clobetasol (TEMOVATE) 0.05 % Ointment Apply 2 times daily. ??? cyclobenzaprine (FLEXERIL) 10 MG Tablet ??? DULoxetine (CYMBALTA) [address] [...] mcg by mouth daily. 0 ??? [DISCONTINUED] lisinopril (PRINIVIL, ZESTRIL) 10 MG Tablet Take 10 mg by mouth. ??? losartan (COZAAR) 50 MG Tablet ??? metFORMIN (GLUCOPHAGE) 500 MG Tablet Take 500 mg by mouth daily. ??? Multiple Vitamin (MULTIVITAMIN PO) Take by mouth. ??? nystatin [id number] UNIT/GM Powder Apply. ??? Ozempic, 1 MG/DOSE, 4 MG/3ML Solution Pen-injector INJECT 1MG INTO SKIN ONCE A WEEK No facility-administered encounter medications on file as of 09/08/2023. Labs: No visits with results within 7 Day(s) from this visit. Latest known visit with results is: Lab on 09/09/2022 Component Date Value Ref Range Status ??? WBC 09/09/2022 6.6 4.0 - 10.0 10*3/uL Final ??? HGB 09/09/2022 15.4 11.2 - 15.7 g/dL Final ??? HCT 09/09/2022 46.1 (H) 34.1 - 44.9 % Final ??? PLT 09/09/2022 245 163 - 369 10*3/uL Final ??? MPV 09/09/2022 10.1 9.4 - 12.4 fL Final ??? RBC 09/09/2022 5.34 (H) 3.93 - 5.22 10*6/uL Final ??? MCV 09/09/2022 86 79 - 95 fL Final ??? MCH 09/09/2022 28.8 25.6 - 32.2 pg Final ??? MCHC 09/09/2022 33.4 32.2 - 36.5 g/dL Final ??? RDW 09/09/2022 13.8 11.6 - 14.4 % Final ??? Absolute Neutrophil Count 09/09/2022 4,271 cells/uL Final ??? Absolute Seg Count 09/09/2022 4,271 1,440 - 6,600 cells/uL Final ??? Absolute Lymph Count 09/09/2022 1,708 760 - 4,000 cells/uL Final ??? Absolute Moody Count 09/09/2022 460 160 - 1,200 cells/uL Final ??? Absolute Eos Count 09/09/2022 131 0 - 300 cells/uL Final ??? Segmented Neutrophils 09/09/2022 65 36 - 66 % Final ??? Lymphocytes 09/09/2022 26 19 - 40 % Final ??? Monocytes 09/09/2022 7 4 - 12 % Final ??? Eosinophils 09/09/2022 2 0 - 3 % Final ??? WBC Estimate 09/09/2022 Normal Final ??? Platelet Estimate 09/09/2022 Normal Final ??? RBC Morphology 09/09/2022 Normal Final Cosigned by Basil Staley DO at 09/11/2023 2:40 PM CDT documented in this encounter Plan of Treatment Upcoming Encounters Date Type Department Care Team (Late st Contact Info) Description 09/06/2024 10:00 AM CDT Office Visit [facility] [address] [phone] Basil Staley DO [address] [place] [phone] documented as of this encounter Visit Diagnoses Diagnosis Secondary polycythemia- Primary Polycythemia, secondary documented in this encounter Additional Health Concerns Assessment Noted Time PHQ-9 Depression Total Score: 0 06/12/20 20 10:52 AM HOOP MAKER documented as of this encounter Care Teams Roll Icer Machine Relationship Specialty Start Date End Date Alex Browne MD [address] [place] [id number] PCP - General Family Medicine 02/14/18 documented as of this encounter
--- OUTSIDE RECORDS SUMMARY | 2024-06-23 15:25 | XMS_ITS | Encounter Summary ---
Author Organization [facility] Address [address] [place] [address] Phone Care Team Providers Care Plate Put In Worker Name Role Phone Alex Browne MD Primary Care Provider Encounter Details Date Type Department Care Team (Late Contact Info) Description 09/06/2019 8:05 AM CDT Lab [facility] [address] [phone] Nurse, Cc [facility] Polycythemia (Primary Dx) Social History Tobacco Use [...] CDT Office Visit [facility] [address] [phone] Basil Staley DO [address] [place] [phone] documented as of this encounter Procedures Procedure Name Priority Date/Time Associated Diagnosis Comments CBC WITH AUTO DIFF [place] Routine 09/06/2019 9:55 AM CDT LACTATE DEHYDROGENASE (LD) Routine 09/06/2019 9:55 AM CDT Polycythemia CMP (COMPREHENSIVE METABOLIC PANEL) Routine 09/06/2019 9:55 AM CDT Polycythemia documented in this encounter Results * (ABNORMAL) CBC WITH AUTO DIFF [place] (09/06/2019 9:55 AM CDT) WBC 4.5 4.0 - 10.0 10*3/uL [facility] HGB 15.4 11.2 - 15.7 g/dL [facility] HCT 48.2(H) 34.1 - 44.9 % [facility] PLT 218 163 - 369 10*3/uL [facility] MPV 10.4 9.4 - 12.4 fL [facility] RBC 5.35(H) 3.93 - 5.22 10*6/uL [facility] MCV 90 79 - 95 fL [facility] MCH 28.8 25.6 - 32.2 pg [facility] MCHC 32.0(L) 32.2 - 36.5 g/dL [facility] RDW 12.8 11.6 - 14.4 % [facility] Neutrophils % 58.8 36.0 - 66.0 % [facility] Lymphocytes % 29.1 19.0 - 40.0 % [facility] Monocytes % 8.9 4.1 - 12.1 % [facility] Eosinophils % 1.6 0.0 - 3.5 % [facility] Basophils % 0.9 0.0 - 1.0 % [facility] Absolute Neutrophils 2.6 1.4 - 6.6 10*3/uL [facility] Absolute Lymphocytes 1.3 0.8 - 4.0 10*3/uL [facility] Absolute Monocytes 0.4 0.2 - 1.2 10*3/uL [facility] Absolute Eosinophils 0.1 0.0 - 0.4 10*3/uL [facility] Absolute Basophils 0.0 0.0 - 0.1 10*3/uL [facility] 09/06/2019 9:55 AM CDT us Basil Staley DO LAB SEND OUTS Final Result Performing Organization Address City/[facility]/[place] [address], * LACTATE DEHYDROGENASE (LD) (09/06/2019 9:55 AM CDT) LDH 162 140 - 271 U/L [facility] Blood specimen (specimen) 09/06/2019 9:55 AM CDT us Basil Staley DO CHEMISTRY ORDERABLES Final Res ult Performing Organization Address [facility] [place] [address], * (ABNORMAL) CMP (COMPREHENSIVE METABOLIC PANEL) (09/06/2019 9:55 AM CDT) Glucose 359(H) 70 - 105 mg/dL [facility] Blood Urea Nitrogen 14 7 - 25 mg/dL [facility] Creatinine 0.8 0.6 - 1.2 mg/dL [facility] Sodium 135(L) 136 - 145 mEq/L [facility] Potassium 3.7 3.5 - 5.1 mEq/L [facility] Chloride 99 98 - 107 mEq/L [facility] Bicarbonate 28 21 - 31 mEq/L [facility] Total Bilirubin 0.7 0.3 - 1.0 mg/dL [facility] Alk. Phosphatase 140(H) 34 - 104 U/L [facility] Aspartate Aminotransferase 33 13 - 39 U/L [facility] Alanine Aminotransferase 49 7 - 52 U/L [facility] Total Protein 6.3(L) 6.4 - 8.9 g/dL [facility] Albumin 4.1 3.5 - 5.7 g/dL [facility] Calcium 10.0 8.6 - 10.2 mg/dL [facility] Anion Gap 11.7 7.0 - 15.0 mEq/L [facility] Globulin 2.2 2.0 - 3.5 g/dL [facility] EGFR (Non ) >60 >60 ml/min [facility] EGFR () >60 >60 ml/min [facility] Blood specimen (specimen) 09/06/2019 9:55 AM CDT us Basil Staley DO CHEMISTRY ORDERABLES Final Res ult [address] [address], documented in this encounter Visit Diagnoses Diagnosis Polycythemia- Primary Polycythemia vera documented in this encounter Additional Health Concerns Assessment Noted Time PHQ-9 Depression Total Score: 0 12/15/19 19 10:19 AM CDT documented as of this encounter Care Teams Plate Put In Worker Relationship Specialty Start Date End Date Alex Browne MD [address] [place] [address] PCP - General Family Medicine 02/14/18 documented as of this encounter
--- OUTSIDE RECORDS SUMMARY | 2024-06-23 15:25 | XMS_ITS | Encounter Summary ---
Author Organization [facility] Address [address] [place] [address] Phone Care Team Providers Care Biometrics Consultant Name Role Phone Alex Browne MD Primary Care Provider [phone] Reason for Visit * Reason Comments Follow-up Encounter Details Date Type Department Care Team (Latest Contact Info) Description 09/10/2021 10:30 AM CDT Office Visit [facility] [address] [place] [address] Basil Staley, DO [address] [place] [address] Secondary polycythemia (Primary Dx) Social History Tobacco [...] Sign Reading Time Taken Comments Blood Pressure 138/98 09/10/2021 10:08 AM CDT Pulse 70 09/10/2021 10:08 AM CDT Temperature 36.4 ??C (97.5 ??F) 09/10/2021 1 0:08 AM CDT Respiratory Rate 18 09/10/2021 10:0 8 AM CDT Oxygen Saturation 97% 09/10/2021 10: 08 AM CDT Inhaled Oxygen Concentration - - Weight 123.8 kg (272 lb 14.4 oz) 2021 10:08 AM CDT Height 162.6 cm (5' 4 ) 09/10/2021 10:0 8 AM CDT Body Mass Index 46.84 09/10/2021 10:08 AM CDT documented in this encounter Progress Notes * Basil Staley DO - 09/10/2021 10:30 AM CDT Images from the original note were not included. Patient: Kristal Bustos Age: 66 y.o. : 1955 Encounter Dept: [facility] Encounter Date: 09/10/2021 Care Team: Current Providers PCP: Alex Browne MD Encounter Provider: Basil Staley DO Referring Provider: not found Consulting Physician: Basil Staley DO PATIENT IDENTIFICATION: This patient is a very pleasant 66-year-old female. HISTORY OF PRESENT ILLNESS: Kristal is doing well. No complaints. She has had her CPAP titrated up.Her hemoglobin is normalized. She is doing well at this time. DIAGNOSIS: 1. Polycythemia likely secondary sleep apnea [...] sleep apnea, undiagnosed. 2. Steatohepatitis. PLAN: 1. Discussed with patient since titrating her CPAP, her hemoglobin is completely normalized, and she has no symptoms. 2. Follow up in 12 months??? time with CBC. 3. Continue titrating up CPAP as needed. TIME SPENT: REVIEW OF SYSTEMS: See HPI; [...] negative. 4. EPO normal. Basil Staley, DO, FACOI/mgo Vitals: Vitals: 09/10/21 1008 BP: (!) 138/98 BP Location: Left Arm BP Position: Sitting BP Cuff Size: Regular Pulse: 70 Resp: 18 Temp: 97.5 ??F (36.4 ??C) TempSrc: Temporal SpO2: 97% Weight: 272 lb 14.4 oz (123.8 kg) Height: 5' 4 (1.626 m) Body surface area is 2.36 meters squared. Body mass index is 46.84 kg/m??. Pain Score: 0 - No pain [...] Unknown Tobacco Use ??? Smoking status: Former Smoker Types: Cigarettes ??? Smokeless tobacco: Never Used Vaping Use [...] Current Medications: Outpatient Encounter Medications as of 09/10/2021 Medication Sig Dispense Refill ??? acetaminophen (Tylenol 8 Hour) 650 MG Tablet Controlled Release Take 650 mg by mouth every 6 hours as needed. ??? aspirin EC 81 MG Tablet Delayed Response Take 81 mg by mouth. ??? busPIRone HCl 7.5 MG Tablet Take by mouth. ??? cetirizine (ZYRTEC) 10 MG Tablet daily. ??? clobetasol (TEMOVATE) 0.05 % Ointment Apply 2 times daily. ??? cyclobenzaprine (FLEXERIL) 10 MG Tablet Take 10 mg by mouth 3 times daily as needed. ??? docusate sodium 100 MG Capsule ??? DULoxetine (CYMBALTA) [address] Particles ??? Fenofibrate Micronized 134 MG Capsule ??? fluticasone (FLONASE) 50 MCG/ACT Suspension 2 Sprays by Nasal route. ??? hydroCHLOROthiazide 12.5 MG Tablet ??? levothyroxine (SYNTHROID) 100 MCG Tablet Take 100 mcg by mouth daily. 0 ??? metFORMIN (GLUCOPHAGE) 500 MG Tablet Take 500 mg by mouth daily. ??? nystatin 172053 UNIT/GM Powder Apply. ??? sulfamethoxazole-trimethoprim DS (Bactrim DS) 800-160 MG Tablet Take 1 Tablet by mouth 2 times daily. No facility-administered encounter medications on file as of 09/10/2021. Labs: Lab on 09/10/2021 Component Date Value Ref Range Status ??? WBC 09/10/2021 3.7 (A) 4.0 - 10.0 10*3/uL Final ??? HGB [...] 36.5 g/dL Final ??? RDW 09/10/2021 14.8 (A) 11.6 - 14.4 % Final documented in this encounter Plan of Treatment Upcoming Encounters Date Type Department Care Team (Late st Contact Info) Description 09/06/2024 10:00 AM CDT Office Visit [facility] [address] [address] Basil Staley DO [address] [place] [phone] Scheduled Orders Name Type Priority Associated Diagnoses Orde r Schedule COMPLETE BLOOD COUNT (CBC) WITH DIFF Lab Routine Secondary polycythemia Expected: 08/22/2022, Expires: 09/30/2022 documented as of this encounter Visit Diagnoses Diagnosis Secondary polycythemia- Primary Polycythemia, secondary documented in this encounter Additional Health Concerns Assessment Noted Time PHQ-9 Depression Total Score: 0 06/12/20 20 10:52 AM ORDER CONTROL CLERK BLOOD BANK documented as of this encounter Care Teams Biometrics Consultant Relationship Specialty Start Date End Date Alex Browne MD [address] [place] [address] PCP - General Family Medicine 02/14/18 documented as of this encounter
--- OUTSIDE RECORDS SUMMARY | 2024-06-23 15:25 | XMS_ITS | Encounter Summary ---
Author Organization [employer] Care Team Providers Care Social Media Editor Name Role Phone Alex Browne MD Primary Care Provider [phone] Encounter Details Date Type Department Care Team (Latest Contact Info) Description 12/17/2019 Travel Social History Tobacco Use Types Packs/Day [...] CDT Office Visit [facility] [place] [address] [place] [address] Basil Staley, [address] [place] [address] documented as of this encounter Visit Diagnoses Not on filedocumented in this encounter Additional Health Concerns Assessment Noted Time PHQ-9 Depression Total Score: 0 12/15/19 19 10:19 AM CDT documented as of this encounter Care Teams Social Media Editor Relationship Specialty Start Date End Date lAex Browne MD [address] [place] [address] PCP - General Family Medicine 02/14/18 documented as of this encounter
--- OUTSIDE RECORDS SUMMARY | 2024-06-23 15:25 | XMS_ITS | Encounter Summary ---
Author Organization [facility] Address [address] [facility] [place] [address] Phone Care Team Providers Care Facilities Painter Name Role Phone Alex Browne MD Primary Care Provider [phone] Reason for Visit * Reason Onset Date Comments COVID-19 2020 Encounter Details Date Type Department Care Team (Late st Contact Info) Description 2020 Nurse [facility]riage [facility] [address] [place] [address] Alex Browne MD [address] [place] [phone] COVID-19 Social History Tobacco Use Types Packs/Day Years [...] AM CDT documented as of this encounter Miscellaneous Notes * Telephone Encounter - Hien Yun - 2020 9:03 AM CDT Images from the original note were not included. Travel Screening Question Response In the last month, have you been in contact with someone who was confirmed or suspected to have Coronavirus / COVID-19? No / Unsure Have you had a COVID-19 viral test in the last 14 days? No Do you have any of the following new or worsening symptoms? Chills;Fever;Muscle pain;Shortness of breath;Weakness;Fatigue;Diarrhea;Sore throat;Runny nose (loss of appetite) Have you traveled internationally in the last month? No Travel History Travel since 02/21/20 No documented travel since 02/21/20 COVID-19 Testing Priority for Kristal Bustos: 3 Nurse to triage SITUATION: Patient calling with [employer]ID symtpoms BACKGROUND: Diabetes. Began having COVID symptoms on 03/20/20. reporting symptoms. is currently sleeping. ASSESSMENT: Symptom Description / Location: 03/20/20 patient began having chills, fever, muscle pain, weakness,fatigue, sore throat, runny nose and loss of appetite. 03/21/20 states that he noticed patient was having labored breathing , shortness of breath with wheezing during sleep. states that he called patient's PCP and he was told that the patient's symptoms were not bad enough to go toER and to call the [employer] hotline to be tested. Pain (0-10): Denies Temp: 101.9 oral Tmax on 03/22/20 Treatment / Response: Ibuprofen improved fever, but fever came back within one hour of taking. RECOMMENDATION: See care advice and disposition for Guidelines. Appt made with telehealth provider. Recommendations were based on caller information and are not a diagnosis. Verified and reviewed all triage information with caller. Caller verbalizes understanding of the above information. HIEN YUN RN Reason for Disposition ??? [1] COVID-19 infection suspected by caller or triager AND [2] mild symptoms (cough, fever, or others) AND [3] no complications or SOB Answer Assessment - Initial Assessment Questions 1. COVID-19 DIAGNOSIS: Who made your Coronavirus (COVID-19) diagnosis? Was it confirmed by a positive lab test? If not diagnosed by a HCP, ask Are there lots of cases (community spread) where you live? (See public health department website, if unsure) Yes. [place] 2. ONSET: When did the COVID-19 symptoms start? 03/20/20 3. WORST SYMPTOM: What is your worst symptom? (e.g., cough, fever, shortness of breath, muscle aches) Fever 4. COUGH: Do you have a cough? If so, ask: How bad is the cough? Denies 5. FEVER: Do you have a fever? If so, ask: What is your temperature, how was it measured, and when did it start? Yes. 101.9 oral Tmax 03/22/20 6. RESPIRATORY STATUS: Describe your breathing? (e.g., shortness of breath, wheezing, unable to speak) Shortness of breath. states his was having labored breathing and wheezing while she was sleeping 03/21/20. 7. [id number]: Are you getting better, staying the same or getting worse compared to yesterday? If getting worse, ask, In what way? Same 8. HIGH RISK DISEASE: Do you have any chronic medical problems? (e.g., asthma, heart or lung disease, weak immune system, etc.) Diabetes 9. : Is there any chance you are ? When was your last menstrual period? Denies 10. OTHER SYMPTOMS: Do you have any other symptoms? (e.g., chills, fatigue, headache, loss of smell or taste, muscle pain, sore throat) Chills, fever, muscle pain, shortness of breath, weakness, fatigue, diarrhea, sore throat, runny nose and loss of appetite Protocols used: CORONAVIRUS (COVID-19) DIAGNOSED OR [id number] * Telephone Encounter - Hien Yun - 2020 9:00 AM CDT Images from the original note were not included. Travel Screening Question Response In the last month, have you been in contact with someone who was confirmed or suspected to have Coronavirus / COVID-19? No / Unsure Have you had a COVID-19 viral test in the last 14 days? No Do you have any of the following new or worsening symptoms? Chills;Fever;Muscle pain;Shortness of breath;Weakness;Fatigue;Diarrhea;Sore throat;Runny nose (loss of appetite) Have you traveled internationally in the last month? No Travel History Travel since 02/21/20 No documented travel since 02/21/20 Patients whose symptoms require immediate emergency assistance should be directed to contact 911 for emergency assistance. If the triage nurse is calling 911, notify the dispatcher of the negative screening. Screening Results: COVID-19 LIKE SYMPTOMS Patient is experiencing COVID-19 type symptoms, but has no known exposure or international travel. State to Patient: Based on your answers, I recommend that you please remain on the line while I transfer you to a triage nurse who can advise you further on next steps. Did patient refuse assistant front office manager? no. ??? If patient refuses to speak to a nurse: Please continue to monitor your symptoms and if they get worse, do not hesitate to call us back. We are here 16/01. We recommend you refer to the CDC website regarding guidelines for self- isolation and thank you for calling. HIEN YUN RN documented in this encounter Plan of Treatment Upcoming Encounters Date Type Department Care Team (Late Contact Info) Description 09/06/2024 10:00 AM CDT Office Visit [facility] [address] [phone] Basil Staley DO [address] [place] [phone] documented as of this encounter Visit Diagnoses Not on filedocumented in this encounter Additional Health Concerns Assessment Noted Time PHQ-9 Depression Total Score: 0 12/15/19 19 10:19 AM CDT documented as of this encounter Care Teams Facilities Painter Relationship Specialty Start Date End Date Alex Browne MD [address] [place] [address] PCP - General Family Medicine 02/14/18 documented as of this encounter
--- OUTSIDE RECORDS SUMMARY | 2024-06-23 15:25 | XMS_ITS | Encounter Summary ---
Author Organization [employer] Care Team Providers Care Pressure Tank Operator Name Role Phone Alex Browne MD Primary Care Provider [phone] Encounter Details Date Type Department Care Team (Latest Contact Info) Description 09/09/2022 Travel Social History Tobacco Use Types Packs/Day [...] 09/09/2022 11:16 AM CDT Yasmeen Garrison RMA Feeling down, [...] Visit [facility] [place] [address] [place] [phone] Basil Staley, [address] [place] [phone] documented as of this encounter Visit Diagnoses Not on filedocumented in this encounter Additional Health Concerns Assessment Noted Time PHQ-9 Depression Total Score: 0 06/12/20 10:52 AM BUTTER LIQUEFIER documented as of this encounter Care Teams Pressure Tank Operator Relationship Specialty Start Date End Date Alex Browne MD [address] [place] [phone] PCP - General Family Medicine 02/14/18 documented as of this encounter
--- OUTSIDE RECORDS SUMMARY | 2024-06-23 15:25 | XMS_ITS | Encounter Summary ---
Author Organization [facility] Address [address] [place] [address] Phone Care Team Providers Care Clinical Neuropsychologist Name Role Phone Alex Borwne MD Primary Care Provider Reason for Visit * Reason Comments Follow-up Encounter Details Date Type Department Care Team (Latest Contact Info) Description 06/11/2021 10:30 AM REMELT OPERATOR Office Visit [facility] [address] [address] Jonathan Crews, PAC Secondary polycythemia (Primary Dx) Social History Tobacco [...] COVID-19? No / Unsure 06/11/2021 10:21 AM REMELT OPERATOR documented as of this encounter Last Filed Vital Signs Vital Sign Reading Time Taken Comments Blood Pressure 122/84 06/11/2021 10:25 AM REMELT OPERATOR Pulse 70 06/11/2021 10:25 AM REMELT OPERATOR Temperature 36.1 ??C (96.9 ??F) 06/11/2021 10:[address] Respiratory Rate 18 06/11/2021 10:25 AM REMELT OPERATOR Oxygen Saturation 96% 06/11/2021 10:25 AM REMELT OPERATOR Inhaled Oxygen Concentration - - Weight 123.4 kg (272 lb) 06/11/2021 10:25 AM REMELT OPERATOR Height 162.6 cm (5' 4 ) 06/11/2021 10:25 AM REMELT OPERATOR Body Mass Index 46.69 06/11/2021 10:25 AM REMELT OPERATOR documented in this encounter Progress Notes * Jonathan Crews, PAC - 06/11/2021 10:30 AM CST Images from the original note were not included. Patient: Kristal Bustos Age: 66 y.o. : 1955 [facility] En[facility] Date: 06/11/2021 Care Team: Current Providers PCP: Alex Browne MD Encounter Provider: Basil Staley DO Referring Provider: not found Consulting Physician: Basil Staley DO PATIENT IDENTIFICATION: This patient is a very pleasant 66-year-old female. HISTORY OF PRESENT ILLNESS: Kristal presents to the clinic today for her yearly followup visit. 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 Reports cervical neck infusion since her last office visit. She is wearing a neck brace right now. Denies pain. No headaches. No chest pain. No worsening tiredness or fatigue. She states she is using her CPAP regularly. The machine has not been adjusted in several years. DIAGNOSIS: 1. Polycythemia likely secondary sleep apnea [...] apnea, undiagnosed. 2. Steatohepatitis. PLAN: 1. Discussed recent labs. Hemoglobin is slightly elevated on this visit as well as hematocrit. Hematocrit is at 49. 2. We will have patient get back into her PCP/family protection specialist in regard to adjusting settings for herCPAP. 3. Patient states that her insurance is changing in June. She would like to schedule her appointments after the new year. RTC [address] Staley was present in the clinic. TIME SPENT: REVIEW OF SYSTEMS: See HPI; [...] negative. 4. EPO normal. Basil Staley DO, UMAIR Elizabeth/amanda Vitals: Vitals: 06/11/21 1025 BP: 122/84 BP Location: Right Arm BP Position: Sitting BP Cuff Size: Large Pulse: 70 Resp: 18 Temp: 96.9 ??F (36.1 ??C) TempSrc: Temporal SpO2: 96% Weight: 272 lb (123.4 kg) Height: 5' 4 (1.626 m) Body surface area is 2.36 meters squared. Body mass index is 46.69 kg/m??. Pain Score: 0 - No pain [...] Current Medications: Outpatient Encounter Medications as of 06/11/2021 Medication Sig Dispense Refill ??? acetaminophen (Tylenol [...] mouth 3 times daily as needed. ??? DULoxetine (CYMBALTA) [address] Particles ??? Fenofibrate Micronized 134 MG Capsule ??? fluticasone (FLONASE) 50 MCG/ACT Suspension 2 Sprays by Nasal route. ??? hydroCHLOROthiazide 12.5 MG Tablet ??? [DISCONTINUED] IBUPROFEN PO Take by mouth. ??? levothyroxine (SYNTHROID) 100 MCG Tablet Take 100 mcg by mouth daily. 0 ??? metFORMIN (GLUCOPHAGE) 500 MG Tablet Take 500 mg by mouth daily. ??? sulfamethoxazole-trimethoprim DS (Bactrim DS) 800-160 MG Tablet Take 1 Tablet by mouth 2 times daily. No facility-administered encounter medications on file as of 06/11/2021. Labs: Lab on 06/07/2021 Component Date Value Ref Range Status ??? LDH 06/07/2021 154 140 - 271 U/L Final ??? WBC 06/07/2021 7.7 4.0 - 10.0 10*3/uL Final ??? HGB 06/07/2021 16.5* 11.2 - 15.7 g/dL Final ??? HCT 06/07/2021 49.0* 34.1 - 44.9 % Final ??? PLT 06/07/2021 270 163 - 369 10*3/uL Final ??? MPV 06/07/2021 9.7 9.4 - 12.4 fL Final ??? RBC 06/07/2021 5.68* 3.93 - 5.22 10*6/uL Final ??? MCV 06/07/2021 86 79 - 95 fL Final ??? MCH 06/07/2021 29.0 25.6 - 32.2 pg Final ??? MCHC 06/07/2021 33.7 32.2 - 36.5 g/dL Final ??? RDW 06/07/2021 13.4 11.6 - 14.4 % Final ??? Neutrophils % 06/07/2021 66.5* 36.0 - 66.0 % Final ??? Lymphocytes % 06/07/2021 20.5 19.0 - 40.0 % Final ??? Monocytes % 06/07/2021 10.8 4.1 - 12.1 % Final ??? Eosinophils % 06/07/2021 0.7 0.0 - 3.5 % Final ??? Basophils % 06/07/2021 0.5 0.0 - 1.0 % Final ??? Absolute Neutrophils 06/07/2021 5.1 1.4 - 6.6 10*3/uL Final ??? Absolute Lymphocytes 06/07/2021 1.6 0.8 - 4.0 10*3/uL Final ??? Absolute Monocytes 06/07/2021 0.8 0.2 - 1.2 10*3/uL Final ??? Absolute Eosinophils 06/07/2021 0.1 0.0 - 0.4 10*3/uL Final ??? Absolute Basophils 06/07/2021 0.0 0.0 - 0.1 10*3/uL Final Cosigned by Basil Staley DO at 06/22/2021 10:13 PM REMELT OPERATOR LT OPERATOR LT OPERATOR LT OPERATOR documented in this encounter Plan of Treatment Upcoming Encounters Date Type Department Care Team (Late st Contact Info) Description 09/06/2024 10:00 AM CDT Office Visit [facility] [address] [phone] Basil Staley DO [address] [place] [phone] documented as of this encounter Results * (ABNORMAL) CMP (COMPREHENSIVE METABOLIC PANEL) (09/10/2021 10:02 AM CDT) Glucose 257(H) 70 - 105 mg/dL [facility] Blood Urea Nitrogen 16 7 - 25 mg/dL [facility] Creatinine 0.8 0.6 - 1.2 mg/dL [facility] Sodium 140 136 - 145 mEq/L [facility] Potassium 3.8 3.5 - 5.1 mEq/L [facility] Chloride 105 98 - 107 mEq/L [facility] Bicarbonate 27 21 - 31 mEq/L [facility] Total Bilirubin 0.6 0.3 - 1.0 mg/dL [facility] Alk. Phosphatase 111(H) 34 - 104 U/L [facility] Aspartate Aminotransferase 44(H) 13 - 39 U/L [facility] Alanine Aminotransferase 47 7 - 52 U/L [facility] Total Protein 6.7 6.4 - 8.9 g/dL [facility] Albumin 4.2 3.5 - 5.7 g/dL [facility] Calcium 9.9 8.6 - 10.3 mg/dL [facility] Anion Gap 11.8 7.0 - 15.0 mEq/L [facility] Globulin 2.5 2.0 - 3.5 g/dL [facility] EGFR 81 >60 ml/min/1. 73m2 [facility] Comment: This eGFR is calculated using 2020 CKD-EPI Creatinine equation without race modifier based on the NKF-ASN task force recommendations Blood 09/10/2021 10:0 2 AM CDT Narrative [facility] - 09/10/2021 10:51 AM CDT IS THE PATIENT REQUIRED TO BE FASTING FOR 8 HOURS?->No Release to patient->Immediate Jonathan Crews PAC CHEMISTRY ORDERABLES Final Result [facility] [address] [place] [address], * (ABNORMAL) COMPLETE BLOOD COUNT (CBC) WITH DIFF (09/10/2021 10:02 AM CDT) WBC 3.7(L) 4.0 - 10.0 10*3/uL [facility] HGB 14.2 11.2 - 15.7 g/dL [facility] HCT 42.9 34.1 - 44.9 % [facility] PLT 215 163 - 369 10*3/uL [facility] MPV 9.6 9.4 - 12.4 fL [facility] RBC 4.93 3.93 - 5.22 10*6/uL [facility] MCV 87 79 - 95 fL [facility] MCH 28.8 25.6 - 32.2 pg [facility] MCHC 33.1 32.2 - 36.5 g/dL [facility] RDW 14.8(H) 11.6 - 14.4 % [facility] Absolute Neutrophil Count 2,239 cells/uL [facility] Absolute Seg Count 2,239 1,440 - 6,600 cells/uL [facility] Absolute Lymph Count 1,138 760 - 4,000 cells/uL [facility] Absolute Nuckolls Count 110(L) 160 - 1,200 cells/uL [facility] Absolute Eos Count 184 0 - 300 cells/uL [facility] Segmented Neutrophils 61 36 - 66 % [facility] Lymphocytes 31 19 - 40 % [facility] Monocytes 3(L) 4 - 12 % [facility] Eosinophils 5(H) 0 - 3 % [facility] WBC Estimate Normal [facility] Platelet Estimate Normal [facility] RBC Morphology Normal [facility] Blood 09/10/2021 10:0 2 AM CDT Narrative [facility] - 09/10/2021 10:49 AM CDT Release to patient->Immediate Jonathan Crews PAC HEMATOLOGY ORDERABLES Re huitron Result Performing Organization Address City/State[facility] Co de Phone Number [facility] [place] [address] [place] [address], documented in this encounter Visit Diagnoses Diagnosis Secondary polycythemia- Primary Polycythemia, secondary Secondary polycythemia Polycythemia, secondary documented in this encounter Additional Health Concerns Assessment Noted Time PHQ-9 Depression Total Score: 0 06/12/20 20 10:52 AM REMELT OPERATOR documented as of this encounter Care Teams Clinical Neuropsychologist Relationship Specialty Start Date End Date Alex Browne MD [address] [place] [id number] PCP - General Family Medicine 02/14/18 documented as of this encounter
--- OUTSIDE RECORDS SUMMARY | 2024-06-23 15:26 | XMS_ITS | Clinical Summary ---
Author Organization [facility] Office Center Address [address] [place] [address] Care Team Providers Care Community Organizer Name Role Phone Franny Dolan Primary Care Provider [phone] Allergies Active Allergy Reactions Criticality Noted Date Comments Bee Pollen Rhinitis Low 02/20/2018 Levofloxacin Other (See comments) Low 09/23/2013 Makes her anxious Mite Extract Rhinitis Low 02/20/2018 Mold Rhinitis Low 02/20/2018 Medications cetirizine (ZyrTEC) 10 mg tablet [address] (CYMBALTA) 30 mg capsule 0 Active fenofibrate micronized (LOFIBRA) 134 mg capsule 0 Active hydroCHLOROthiaz sveta (HYDRODIURIL) 12.5 mg tablet 0 Active Synthroid 88 mcg tabletIndication s:100 mg- per patient 0 Active metFORMIN (GLUCOPHAGE) 500 mg tabletIndication s:two times per day Take 1 tablet (500 mg total) by mouth daily 0 Active fluticasone propionate (FLONASE) 50 mcg/actuation nasal spray Administer 2 sprays into each nostril daily Active aspirin 81 mg enteric coated tablet Take 1 tablet (81 mg total) by mouth daily Active acetaminophen ER (TYLENOL) 650 mg 8 hr tablet Take 1 tablet (650 mg total) by mouth every 6 (six) hours as needed Active busPIRone (BUSPAR) 7.5 mg tabletIndication s:2 times per day 1 Active nystatin-triamci nolone cream APPLY TO AFFECTED AREA TWICE A DAY NEEDED 1 Active multivitamin capsule Take 1 capsule by mouth daily Active glucosamine-faviola droitin 500-400 mg tablet Take 1 tablet by mouth 3 (three) times a day Active nystatin powder Apply topically 3 (three) times a day 1 Active sulfamethoxazole -trimethoprim (BACTRIM DS) 800-160 mg per tabletIndication s:Chronic suppurative otitis media of left ear, unspecified otitis media location 1 bid x 10 days 20 tablet 3 Active losartan (COZAAR) 50 mg tablet Take 1 tablet (50 mg total) by mouth daily 3 Active ofloxacin (FLOXIN) 0.3 % otic solution 5 drops to the affected ear twice daily for 1 week. 10 mL 4 Active sulfamethoxazole -trimethoprim (Bactrim DS) 800-160 mg per tablet I tab orally twice daily for 10 days 20 tablet 4 Active Active Problems Problem Noted Date Diagnosed Date Chronic fatigue 08/17/2023 Assessment & Plan (02/08/2024 10:50 AM CDT): Has improved with the use of CPAP Assessment & Plan (11/02/2023 11:23 AM CDT): The fatigue resolved after receiving the new CPAP unit set at 18 cm water pressure. The thyroid function tests, vitamin-D level, vitamin B12 and folate levels were all normal. Assessment & Plan (08/17/2023 10:19 AM SPECIAL MACHINE OPERATOR): I have ordered labs. The patient is also going to follow-up with her primary care Chronic suppurative otitis media of left ear Acute cough 08/16/2022 Assessment & Plan (08/16/2022 11:53 AM SPECIAL MACHINE OPERATOR): The patient is going to see her primary physician regarding the cough. I did inform the patient that if she needs pulmonary function test and a chest x-ray to call back in. Acute otitis media, left 08/31/2021 NIRANJAN (obstructive sleep apnea) 10/19/2020 Assessment & Plan (02/08/2024 10:51 AM CDT): Due to continued symptoms, the patient will continue CPAP at 18 cm water pressure. Denied need for supplies. ESTER adapt Assessment & Plan (11/02/2023 11:23 AM CDT): The patient continues to benefit from CPAP at 18 cm water pressure for ongoing symptoms of NIRANJAN. However, she broke her nose on 14 October 2023 and has not yet been cleared by the ENT physician to resume CPAP therapy because she has a fullface mask and the mask goes over the bridge of the nose. I did ask her to contact Provider Leslie/chelsi to see if she will be a candidate for the F30 or DreamWear fullface mask. She will follow up here in 3 months. Assessment & Plan (08/17/2023 10:19 AM SPECIAL MACHINE OPERATOR): Due to the snoring and increased hypersomnia, I have increased the pressure to 18 cm water pressure. I did instruct the patient to call into the office if patient needs the CPAP readjusted to 17 cm water pressure. Denied need for supplies. DME adapt. Assessment & Plan (08/16/2022 11:53 AM SPECIAL MACHINE OPERATOR): Patient continue to wear CPAP at 17 cm water pressure while sleeping. Her DME is adapt. Assessment & Plan (08/10/2021 11:35 AM SPECIAL MACHINE OPERATOR): Due to the patient stating that she [...] of supplies. Patient is benefitting from CPAP Assessment & Plan (10/19/2020 10:06 AM CDT): Patient continue to wear her CPAP at 15 cm water pressure while sleeping. Her DME is [facility]. Acute recurrent maxillary sinusitis 02/22/2020 Dysfunction of left eustachian tube 02/22/2020 Surgical History Surgery Date Site/Laterality Comments [place] TONSILLECTOMY PRIMARY/SECONDARY <AGE 12 Tonsillectomy - (Added by Conv) [place] NEUROPLASTY &/TRANSPOS MEDIAN NRV CARPAL TUNNE Neuroplasty Decompression Median Nerve At Carpal Tunnel - (Added by Conv) [place] STOT/TOT HYSTERECTOMY AFT ER DELIVERY Hysterectomy - (Added by Conv) [place] CHOLECYSTECTOMY Cholecystectomy - (Added by Conv) [place] LAPAROSCOPY SLING OPERATI ON STRESS INCONT Laparoscopic Sling Operation For Stress Incontinence - (Added by Conv) MYRINGOTOMY W/ TUBES US ABDOMEN COMPLETE W LIVER DOPPLER (C) 02/27/2018 Right Medical History Medical History Date Comments Lichen sclerosus et atrophicus L ichen sclerosus - (Added by Conv) Allergic rhinitis Anxiety Cataract Depression Diabetes (HCC) Hypertension Sinusitis Thyroid disease Endometriosis Arthritis neck Ear problems HL (hearing loss) Family History Medical History Relation Name Comments Cancer Brother Family history of malignant neoplasm - (Added by Conv) Heart attack Father Family history of myocardial infarction - (Added by Conv) Diabetes Mother Family history of diabetes mellitus - (Added by Conv) Heart disease Mother Family history of cardiac disorder - (Added by Conv) Cancer Sister Family history of malignant neoplasm - (Added by Conv) Relation Name Status Comments Brother Father Mother Sister Social History Tobacco Use Types Packs/Day Years Used Date Smoking Tobacco: Former Cigarettes Q uit: 1998 Smokeless Tobacco: Never Tobacco Cessation:Counseling Given: Not Answered Comments Unknown Sex and Gender Information Value Date Recorded Sex Assigned at Not on file Legal Sex Female 12:44 PM CDT Gender Identity Not on file Sexual Orientation Not on file Obstetrics History Last Filed Vital Signs Vital Sign Reading Time Taken Comments Blood Pressure 118/60 02/08/2024 10:32 AM CDT Pulse 70 02/08/2024 10:32 AM CDT Temperature 36 ??C (96.8 ??F) 02/08/2024 10:32 AM CDT Respiratory Rate 18 02/08/2024 10:32 AM CDT Oxygen Saturation 95% 02/08/2024 10:32 AM CDT Inhaled Oxygen Concentration - - Weight 121.1 kg (267 lb) 02/08/2024 10:32 AM CDT Height 162.6 cm (5' 4 ) 02/08/2024 10:32 AM CDT Body Mass Index 45.83 02/08/2024 10:32 AM CDT Plan of Treatment Health Maintenance Due Date Last Done Comments Colon Cancer Screening-Colonoscopy 1955 Depression Screening 1956 Fall Risk Assessment 1955 Hepatitis B Screening 1974 Osteoporosis Screening-Bone Density Scan 09/27/2018 09/27/2016, 09/27/2016 Well Visit 65+ 2021 Pneumococcal vaccine 65+ (2 of 2 - PCV) 08/30/2022 08/30/2021 Breast Cancer Screening-Mammogram 01/17/2024 01/16/2023, 01/16/2023, 09/27/2016, Additional history exists Influenza Vaccine (#1) 2024 , 04/05/2021, 03/15/2020, Additional history exists DTaP/Tdap/Td Vaccine (2 - Td or Tdap) 02/09/2032 02/08/2022 Hepatitis C Screening Completed 10/11/2018 Zoster Vaccine Completed 03/26/2022, 01/21/2022 Procedures Procedure Name Priority Date/Time Associated Diagnosis Comments HEPATITIS PANEL, ACUTE Routine 10/11/2018 7:03 AM CDT DEXA AXIAL SKELETON BONE DENSITY 1 OR MORE SITES Routine 09/27/2016 12:13 PM CDT SCREENING MAMMOGRAM BILATERAL W DYLAN Routine 09/27/2016 12:12 PM CDT from Last 3 Months or Most Recently Relevant to Health Maintenance Results * Hepatitis panel, acute (10/11/2018 7:03 AM CDT) HepBsAg NONREACT NONREACTIVE [facility] Comment: Siemens CentaurXP using THUY (chemiluminescent immunoassay) technology. NONREACTIVE: IgM antibodies to Hepatitis B Surface antigen not detected. REACTIVE: IgM antibodies to Hepatitis B Surface antigen detected. Reactive results will be confirmed by neutralization testing. HBsAb qn <3.10 mIU/mL [facility] Comment: Siemens CentaurXP using THUY (chemiluminescent immunoassay) technology. 9.99 IU/L or less.....NONREACTIVE: IgM antibodies to Hepatitis B Surface antibody are not detected. 10.00 IU/L or greater..REACTIVE: IgM antibodies to Hepatitis B Surface antibody are detected. Hep B core IgM NONREACT NONREACTIVE [facility] Comment: Siemens CentaurXP using THUY (chemiluminescent immunoassay) technology. NONREACTIVE: IgM antibodies to Hepatitis B Core antigen not detected. EQUIVOCAL: IgM antibodies to Hepatitis B Core antigen may or may not be present. Obtain a ??new specimen and retest. REACTIVE: IgM antibodies to Hepatitis B Core antigen detected. Hep A IgM NONREACT NONREACTIVE [facility] Comment: Siemens CentaurXP using THUY (chemiluminescent immunoassay) technology. NONREACTIVE: IgM antibodies to Hepatitis A not detected. This does not exclude possibility of exposure to Hepatitis A or early acute infection. EQUIVOCAL:IgM antibodies to Hepatitis A may or may not be present. Suggest recollection and retest. REACTIVE: Antibodies to Hepatitis A detected. Hep C Ab NONREACT NONREACTIVE [facility] Comment: Siemens CentaurXP using THUY (chemiluminescent immunoassay) technology. NONREACTIVE: Antibodies to Hepatitis C not detected. This does not exclude early acute Hepatitis C infection, possibility of exposure to Hepatitis C, antibodies below detection limit, or to lack of antibody reactivity to the antigen used in this assay. EQUIVOCAL: Antibodies to Hepatitis C may or may not be present. ??Sample to be confirmed by real-time PCR method. REACTIVE: Antibodies to Hepatitis C detected.Sample to be confirmed by real-time PCR method. 10/11/2018 7:03 AM CDT 10/11/2018 7:09 AM CDT Narrative Resulting Agency Comment CLI us Alex Browne MD LAB MICROBIOLOGY - GENERAL ORDERABLES Final Result [facility] [address] [place] [address], [facility] [phone] * Dexa Axial Skeleton Bone Density 1 or 2 Site (09/27/2016 12:13 PM CDT) Anatomical Region Laterality Modality Body N/A Radiographic Liz ging 09/27/2016 12:1 3 PM CDT Impressions 09/27/2016 1:52 PM CDT 1. Low bone mass by WHO criteria. 2. The WHO fracture risk assessment tool (FRAX) indicates that the 10-year probability of a major osteoporotic fracture is 10.0% and the 10-year probability of a hip fracture is 0.4%. Bone mineral density: ??Normal (T-score above or = -1.0) ??Low bone mass ??(T-score between -1.0 and -2.5) replaces the previously used term osteopenia ??Osteoporosis (T-score = or below -2.5) Medical evaluation for secondary causes of low bone mineral density may be appropriate. FRAX is a World Health Organization validated fracture risk assessment tool that calculates a person's 10 year probability of a major osteoporosis related fracture and hip fracture. ??According to the National Osteoporosis Foundation guidelines, postmenopausal women and men age 50 or older with low bone mass and a 10 year probability of a major osteoporosis related fracture = or greater than 20% or a 10 year probability of a hip fracture = or greater than 3% should be considered for treatment. For further information, including treatment recommendations, please refer to the 2013 ISCD Official Positions (http://www.iscd.org) and the NOF's Clinician's Guide to Prevention and Treatment of Osteoporosis (http://www.nof.org/professionals/clinical-guidelines) ?? THIS IS AN ELECTRONICALLY VERIFIED REPORT 09/27/2016 1:48 PM: ??Lowell Kidd M.D. ?? Lowell Kidd M.D. AB: 01:48 PM 01:[address] [facility] [EOD] Narrative 09/27/2016 1:52 PM CDT EXAMINATION: DXA Bone Density Examination (Hip and Spine). HISTORY: ??61-year-old post menopausal female with a stated history of osteoporosis. Current Height: ??65.5 inches Maximum Height: ??65.5 inches Weight: ??275 pounds RISK FACTORS: History of a fracture as an adult which did not result from significant trauma. COMPARISON(S): None. PLASTIC CARD GRADER CARDROOM/MODEL: ??Discovery SL ([id number]). FINDINGS: AP lumbar spine ??L1-L4 Total BMD is 0.918 g/tb4T-nfhxi is -1.2 Left Hip Total BMD is 1.015 g/nk6G-binul is 0.6 Neck BMD is 0.772 g/wg8H-eggzl is -0.7 Procedure Note Provider, MD Kellie - 11/10/2020 EXAMINATION: DXA Bone Density Examination (Hip and Spine). HISTORY: 61-year-old post menopausal female with a stated history of osteoporosis. Current Height: 65.5 inches Maximum Height: 65.5 inches Weight: 275 pounds RISK FACTORS: History of a fracture as an adult which did not result from significant trauma. COMPARISON(S): None. PLASTIC CARD GRADER CARDROOM/MODEL: Discovery SL ([id number]). FINDINGS: AP lumbar spine L1-L4 Total BMD is 0.918 g/nk8L-divok is -1.2 Left Hip Total BMD is 1.015 g/rj0D-telhp is 0.6 Neck BMD is 0.772 g/ui8N-fjgel is -0.7 IMPRESSION: 1. Low bone mass by WHO criteria. 2. The WHO fracture risk assessment tool (FRAX) indicates that the 10-year probability of a major osteoporotic fracture is 10.0% and the 10-year probability of a hip fracture is 0.4%. Bone mineral density: Normal (T-score above or = -1.0) Low bone mass (T-score between -1.0 and -2.5) replaces the previously used term osteopenia Osteoporosis (T-score = or below -2.5) Medical evaluation for secondary causes of low bone mineral density may be appropriate. FRAX is a World Health Organization validated fracture risk assessmenttool that calculates a person's 10 year probability of a major osteoporosisrelated fracture and hip fracture. According to the National OsteoporosisFoundation guidelines, postmenopausal women and men age 50 or older with low bonemass and a 10 year probability of a major osteoporosis related fracture = or greater than 20% or a 10 year probability of a hip fracture = or greaterthan 3% should be considered for treatment. For further information, including treatment recommendations, please referto the 2013 ISCD Official Positions (http://www.iscd.org) and the NOF's Clinician's Guide to Prevention and Treatment of Osteoporosis (http://www.nof.org/professionals/clinical-guidelines) THIS IS AN ELECTRONICALLY VERIFIED REPORT 09/27/2016 1:48 PM: Lowell Kidd M.D. Lowell Kidd M.D. AB:ab 01:48 PM 01:48 PM [facility] [EOD] us Jeffrey Staples MD IMG DXA PROCEDURES Final Re sult * Screening Mammogram Bilateral W Dylan (09/27/2016 12:12 PM CDT) Anatomical Region Laterality Modality Breast Bilateral Mammography 09/27/2016 12:1 2 PM CDT Impressions 09/27/2016 1:56 PM CDT BI-RAD 2 ??BENIGN There is no mammographic evidence of malignancy. A 1 year screening mammogram is recommended. ?? The patient has been or will be contacted. ?? The patient will be entered into a reminder system with a target due date of 1 year for her next screening exam. Electronically signed by: Lowell Kidd M.D. ab/penrad:09/27/2016 13:55:58 ?? Plumber Pipe Fitting: Kathy DUCKWORTH (Any)(M), [facility] letter sent: Normal Exam ?? Reading location: BI-RADS: 2 Benign [EOD] Narrative 09/27/2016 1:56 PM CDT - MG BILATERAL DIGITAL SCREENING MAMMOGRAM 3D/2D WITH MEDIOLATERAL OBLIQUE CRANIOCAUDAL: 09/27/2016 The study was acquired using full field digital technology and interpreted from soft copy. ?? 2D digital mammographic views, as well as 3D digital tomosynthesis were performed in the CC and MLO projections. CLINICAL: Routine mammogram. Patient denies any problems. Sister with breast cancer. No personal history of breast cancer. ?? COMPARISONS: Comparison is made to exams dated: ??09/25/2015 mammogram, 06/02/2014 mammogram - [facility], 05/10/2013 mammogram - [facility], and 05/14/2012 mammogram - [facility]. ?? BREAST TISSUE: The tissue of both breasts is almost entirely fatty. ?? FINDINGS: There is a benign cyst in the right breast. ??There also are benign calcifications in the left breast. ?? No significant masses, calcifications, or other findings are seen in either breast. ?? There has been no significant interval change. Procedure Note Provider, MD Kellie - 11/10/2020 - MG BILATERAL DIGITAL SCREENING MAMMOGRAM 3D/2D WITH MEDIOLATERAL OBLIQUE CRANIOCAUDAL: 09/27/2016 The study was acquired using full field digital technology and interpretedfrom soft copy. 2D digital mammographic views, as well as 3D digital tomosynthesis were performed in the CC and MLO projections. CLINICAL: Routine mammogram. Patient denies any problems. Sister withbreast cancer. No personal history of breast cancer. COMPARISONS: Comparison is made to exams dated: 09/25/2015 mammogram,06/02/2014 mammogram - [facility], 05/10/2013 mammogram - [facility],and 05/14/2012 mammogram - [facility]. BREAST TISSUE: The tissue of both breasts is almost entirely fatty. FINDINGS: There is a benign cyst in the right breast. There also arebenign calcifications in the left breast. No significant masses, calcifications, or other findings are seen ineither breast. There has been no significant interval change. IMPRESSION: BI-RAD 2 BENIGN There is no mammographic evidence of malignancy. A 1 year screeningmammogram is recommended. The patient has been or will be contacted. The patient will be entered into a reminder system with a target due dateof 1 year for her next screening exam. Electronically signed by: Lowell patel/dev:09/27/2016 13:55:58 Plumber Pipe Fitting: Kathy DUCKWORTH (nAy)(Alex), [facility] letter sent: Normal Exam Reading location: BI-RADS: 2 Benign [EOD] us Jeffrey Staples MD IMG MAMMO PROCEDURES Final Result from Last 3 Months or Most Recently Relevant to Health Maintenance Insurance [employer] Member Subscriber Plan / Payer (Ef fective 2021-Present) Name:Kristal Bustos Relation to Subscriber:Self Name:Kristal Bustos Payer ID:[id number] Group ID:Not on file Type:[facility] Address: [facility] [address] [place] [address] [employer]ICARE [employer] [place] [employer] Care Teams Community Organizer Relationship Specialty Start Date End Date Franny Dolan PA [address] [place] [id number] PCP - General Physician Scale Clerk 11/22/22
--- OUTSIDE RECORDS SUMMARY | 2024-06-23 15:26 | XMS_ITS | Encounter Summary ---
Author Organization [facility] Healthcare Address [address] [place] [address] Care Team Providers Care Frame Repairer Name Role Phone Franny Dolan Primary Care Provider [phone] Reason for Visit * Reason Onset Date Comments Orders Only 08/17/2023 Encounter Details Date Type Department Care Team (Late st Contact Info) Description 08/17/2023 Telephone [facility] Medical Group [address] [place] [address] Eric Gonzalez MD [address] [facility] [address] [address] Orders Only Social History Tobacco Use Types Packs/Day Years Used Date Smoking Tobacco: Former Cigarettes Q uit: 1998 Smokeless Tobacco: Never Comments Unknown Sex and Gender Information Value Date Recorded Sex Assigned at Not on file Legal Sex Female 12:44 PM CDT Gender Identity Not on file Sexual Orientation Not on file documented as of this encounter Miscellaneous Notes * Telephone Encounter - Jen Herbert MA - 08/17/2023 10:13 AM CST Both orders faxed to [facility] * Telephone Encounter - Jen Herbert MA - 08/17/2023 10:10 AM CST ----- Message from Radha Stanton NP sent at 08/17/2023 10:05 AM [facility] ----- Please increase pressure to 18 cm H20 and have DME troubleshoot, repair, or replace machine due to whistling noise. Dme adapt [facility] documented in this encounter Plan of Treatment Not on file documented as of this encounter Visit Diagnoses Diagnosis NIRANJAN (obstructive sleep apnea)- Primary Obstructive sleep apnea (adult) (pediatric) documented in this encounter Orders General Supply Count Last Ordered Date First Or dered Date CPAP MACHINE WITH HEATED HUMIDIFIER 2 08/17 documented in this encounter Care Teams Frame Repairer Relationship Specialty Start Date End Date Franny Dolan PA [address] [place] [address] [id number] PCP - General Physician Glassie 11/22/22 documented as of this encounter
--- OUTSIDE RECORDS SUMMARY | 2024-06-23 15:26 | XMS_ITS | Encounter Summary ---
Author Organization [facility] Healthcare Address [address] [place] [address] Care Team Providers Care Auditing Coder Name Role Phone Alex Browne MD Primary Care Provider [phone] Encounter Details Date Type Department Care Team (Late st Contact Info) Description 10/21/2019 9:47 AM CDT - 10/23/2020 11:59 PM CDT Hospital Encounter [facility] INTERIM Eric Gonzalez MD [address] [facility] [address] [address] Social History Tobacco Use Types Packs/Day Years [...] Sign Reading Time Taken Comments Blood Pressure - - Pulse - - Temperature - - Respiratory Rate - - Oxygen Saturation - - Inhaled Oxygen Concentration - - Weight 127 kg (280 lb) 10/21/2019 9:57 AM CDT Height 162.6 cm (5' 4 ) 10/21/2019 9:57 AM CDT Body Mass Index 48.06 10/21/2019 9:57 AM CDT documented in this encounter Medications at Time of Discharge acetaminophen ER (TYLENOL) 650 mg 8 hr tablet Take 1 tablet (650 mg total) by mouth every 6 (six) hours as needed aspirin 81 mg enteric coated tablet Take 1 tablet (81 mg total) by mouth daily busPIRone (BUSPAR) 7.5 mg tabletIndication s:2 times per day 08/19/2020 cetirizine (ZyrTEC) 10 mg tablet 01/30/[address] (CYMBALTA) 30 mg capsule 02/16/2020 fenofibrate micronized (LOFIBRA) 134 mg capsule 01/13/2020 fluticasone propionate (FLONASE) 50 mcg/actuation nasal spray Administer 2 sprays into each nostril daily glucosamine-faviola droitin 500-400 mg tablet Take 1 tablet by mouth 3 (three) times a day hydroCHLOROthiaz sveta (HYDRODIURIL) 12.5 mg tablet 12/12/2019 metFORMIN (GLUCOPHAGE) 500 mg tabletIndication s:two times per day Take 1 tablet (500 mg total) by mouth daily 01/23/2020 multivitamin capsule Take 1 capsule by mouth daily nystatin-triamci nolone cream APPLY TO AFFECTED AREA TWICE A DAY NEEDED 09/16/2020 Synthroid 88 mcg tabletIndication s:100 mg- per patient 11/22/2019 fluconazole (Diflucan) 150 mg tabletIndication s:Acute recurrent maxillary sinusitis 1 tab po bid 2 tablet 03/06/2020 2 documented as of this encounter Plan of Treatment Not on file documented as of this encounter Visit Diagnoses Not on filedocumented in this encounter Care Teams Auditing Coder Relationship Specialty Start Date End Date Alex Browne MD [address] [place] [address] PCP - General 10/11/18 11/21/22 documented as of this encounter
--- OUTSIDE RECORDS SUMMARY | 2024-06-23 15:26 | XMS_ITS | Encounter Summary ---
Author Organization [facility] Address [address] [place] [address] Phone Care Team Providers Care Stoper Name Role Phone Alex Browne MD Primary Care Provider [phone] Reason for Visit * Reason Comments Ear Problem Left ear fluid Encounter Details Date Type Department Care Team (Late st Contact Info) Description 11/29/2021 11:15 AM CDT Office Visit [facility] Otolaryngology [address] [place] [address] Benjamín Delong II, MD [address] [place] [address] Acute otitis media, left (Primary Dx); Dysfunction of left eustachian tube Social History Tobacco Use Types Packs/Day Years [...] - - Temperature - - Respiratory Rate 17 11/29/2021 11:03 AM CDT Oxygen Saturation - - Inhaled Oxygen Concentration - - Weight 124.7 kg (275 lb) 11/29/2021 11:03 AM CDT Height 162.6 cm (5' 4 ) 11/29/2021 11:03 AM CDT Body Mass Index 47.2 11/29/2021 11:03 AM CDT documented in this encounter Ordered Prescriptions Prescription Sig Dispense Quantity Refills Last Filled Start Date End Date neomycin-polymyxin -HC (CORTISPORIN) 3.5-10,000-1 mg/mL-unit/mL-% otic suspensionIndicati ons:Acute otitis media, left Administer 3 drops into the left ear 3 (three) times a day 10 mL 11/29/2021 3 ciprofloxacin-dexA METHasone (CIPRODEX) otic suspensionIndicati ons:Acute otitis media, left Administer 3 drops into the left ear 2 (two) times a day for 10 days 7.5 mL 11/29/2021 2 sulfamethoxazole-t rimethoprim (BACTRIM DS) 800-160 mg per tabletIndications: Acute otitis media, left Take 1 tablet by mouth 2 (two) times a day for 10 days 20 tablet 11/29/2021 2 fluconazole (DIFLUCAN) 100 mg tabletIndications: Acute otitis media, left Take 1 tablet (100 mg total) by mouth 2 (two) times a day for 1 day 2 tablet 11/29/2021 2 documented in this encounter Progress Notes * Benjamín Delong II, MD - 11/29/2021 11:15 AM CDT Established Patient Report 11/29/2021 Patient: Kristal Bustos : 1955 Diagnosis: Problem List Items Addressed This Visit ENT Dysfunction of left eustachian tube Acute otitis media, left - Primary Relevant Medications fluconazole (DIFLUCAN) 100 mg tablet sulfamethoxazole-trimethoprim (BACTRIM DS) 800-160 mg per tablet rnygebsw-jywwxnfqw-EE (CORTISPORIN) 3.5-10,000-1 mg/mL-unit/mL-% otic suspension Interval History: Kristal Bustos returns for an established patient visit. She was seen today for evaluation of her ears. She has a history of chronic eustachian tube dysfunction. She has a ear tube in place in the left ear. She has noticed over the past couple of weeks that there has been some drainage from theleft side intermittently. This seems to go away but has been mildly persistent. She is not on any medicines for this. There is no bleeding from the ears. The right side is not giving her any trouble.She is not really having pain but there is some fullness to the left side Review of systems otherwise unchanged. Interval Physical Exam: General Appearance: Well-developed in no apparent distress. Alert and oriented times three. Breathing comfortably. No stridor or stertor. Normal voice. Eyes: Pupils equally round and reactive to light. Extraocular movements are intact throughout. No proptosis. Head/Face: Normocephalic, atraumatic. No facial lesions or masses. Facial nerve intact and symmetric. Sensation intact and symmetric throughout. No salivary masses or tenderness. Sinus palpation is nontender. Right Ear: Normal pinna and appearance of external ear. Ear canal is patent without mass lesions. The tympanic membrane is intact without significant retraction or scarring. Middle ear is clear serous effusion, inflammation or middle ear process Left Ear: Normal pinna and appearance of external ear. Ear canal is patent without mass lesions. Mucoid to mucopurulent drainage is seen in the medial ear canal. This was suctioned down to the tympanic membrane. T-Tube is in place inferiorly. Tympanic membrane is mildly erythematous. Nasal Exam: External nose has no masses or lesions. The nasal septum is midline. Inferior turbinates are normal sized. No intranasal polyps or masses. Drainage seen on each side of the nose is normaland clear. Oral Cavity/Oropharynx: Normal lips, teeth, and gums. Oral mucosa is moist without lesions. Tongue and floor of mouth have no lesions or masses and are soft to palpation. Palate and uvula are clear and elevate symmetrically. The oropharynx is clear. Neck: No masses, lesions, or lymphadenopathy. Trachea midline. Thyroid has no palpable nodules. Temporomandibular joints are nontender. Respiratory: No retractions. Procedures: None Medication(s) Ordered ??? fluconazole (DIFLUCAN) 100 mg tablet Sig: Take 1 tablet (100 mg total) by mouth 2 (two) times a day for 1 day Dispense: 2 tablet Refill: 0 ??? sulfamethoxazole-trimethoprim (BACTRIM DS) 800-160 mg per tablet Sig: Take 1 tablet by mouth 2 (two) times a day for 10 days Dispense: 20 tablet Refill: 0 ??? bnlfkcnq-wdsrwfieh-LI (CORTISPORIN) 3.5-10,000-1 mg/mL-unit/mL-% otic suspension Sig: Administer 3 drops into the left ear 3 (three) times a day Dispense: 10 mL Refill: 0 No orders of the defined types were placed in this encounter. Assessment and Plan: This is a 66 y.o.-year-old female with chronic eustachian tube dysfunction in the left ear. T-Tube is in place because of that. Today she has an acute exacerbation of chronic otitis media. I have started her on Cortisporin drops and Bactrim DS. She also got a deaf flu can pillbecause she gets vaginal candidiasis with antibiotics. She is to keep water out of the ears. She isto follow-up in 4 months. She can follow-up sooner if there are persistent or worsening problems. Patient is at moderate level medical decision making. She has a chronic problem of eustachian tube dysfunction that is stable. She has acute exacerbation of a chronic problem which is otitis media that required prescription drug management Benjamín Delong II, M.D. This note was generated with voice recognition software and small grammatical errors may be encountered. documented in this encounter Plan of Treatment Not on file documented as of this encounter Visit Diagnoses Diagnosis Acute otitis media, left- Primary Unspecified otitis media Dysfunction of left eustachian tube documented in this encounter Discontinued Medications Medication Sig Discontinue Reason Start Date End Da te docusate sodium (COLACE) 100 mg capsule Therapy completed 06/03/2021 11/29/2021 fluconazole (Diflucan) 150 mg tabletIndications:Acut e recurrent maxillary sinusitis 1 tab po bid Therapy completed 03/06/2020 11/29/2021 ciprofloxacin-dexAMETH asone (CIPRODEX) otic suspensionIndications: Acute otitis media, left Administer 3 drops into the left ear 2 (two) times a day for 10 days Alternate therapy 11/29/2021 11/29/2021 documented as of this encounter Care Teams Stoper Relationship Specialty Start Date End Date Alex Browne MD [address] [place] [address] PCP - General 10/11/18 11/21/22 documented as of this encounter
--- OUTSIDE RECORDS SUMMARY | 2024-06-23 15:26 | XMS_ITS | Encounter Summary ---
Author Organization [facility] Address [address] [place] [address] Care Team Providers Care Dentofacial Orthopedics Dentist Name Role Phone Alex Browne MD Primary Care Provider [phone] Reason for Visit * Neurology (Routine) - Closed Specialty Diagnoses / Procedures Referred By Michelle lozano Referred To Contact Diagnoses Carpal tunnel syndrome, unspecified laterality Procedures EMG/NCV - Martha Wolff MD Phone: tel: fax: [facility] [address] [place] [address] Referral ID Status Reason Start Date Expiration Date Visits Re quested Visits Authorized [id number] Closed 09/15/2021 10/15/2022 1 1 Encounter Details Date Type Department Care Team (Late st Contact Info) Description 11/15/2021 1:00 PM CDT Therapy [facility] OP Physical Therapy [address] [address] Carpal tunnel syndrome, unspecified laterality Social History Tobacco Use Types Packs/Day Years Used Date Smoking Tobacco: Former Cigarettes Q uit: 1998 Smokeless Tobacco: Never Comments Unknown Sex and Gender Information Value Date Recorded Sex Assigned at Not on file Legal Sex Female 12:44 PM CDT Gender Identity Not on file Sexual Orientation Not on file documented as of this encounter Progress Notes * Paul Linder MD - 11/15/2021 1:00 PM CDT Scanned reports and notes from EMG/NCV test can be found in the Media section of the patient's chart. documented in this encounter Plan of Treatment Not on file documented as of this encounter Visit Diagnoses Diagnosis Carpal tunnel syndrome, unspecified laterality documented in this encounter Orders Imaging Orders Without Results Count Last Order ed Date First Ordered Date EMG/NCV 1 11/15/2021 documented in this encounter Care Teams Dentofacial Orthopedics Dentist Relationship Specialty Start Date End Date Alex Browne MD [address] [place] [id number] PCP - General 10/11/18 11/21/22 documented as of this encounter
--- OUTSIDE RECORDS SUMMARY | 2024-06-23 15:26 | XMS_ITS | Encounter Summary ---
Author Organization [facility] Address [address] [place] [address] Phone Care Team Providers Care Batting Machine Operator Insulation Name Role Phone Franny Dolan Primary Care Provider [phone] Reason for Visit * Reason Comments Ear Problem Left ear infection Encounter Details Date Type Department Care Team (Late st Contact Info) Description 12/09/2022 9:15 AM CDT Office Visit [facility] Otolaryngology [address] [place] [address] Benjamín Delong II, MD [address] [place] [address] Chronic suppurative otitis media of left ear, unspecified otitis media location (Primary Dx); Dysfunction of left eustachian tube [...] - - Temperature - - Respiratory Rate 18 12/09/2022 9:04 AM CDT Oxygen Saturation - - Inhaled Oxygen Concentration - - Weight 129.3 kg (285 lb) 12/09/2022 9:04 AM CDT Height 162.6 cm (5' 4 ) 12/09/2022 9:04 AM CDT Body Mass Index 48.92 12/09/2022 9:04 AM CDT documented in this encounter Ordered Prescriptions Prescription Sig Dispense Quantity Refills Last Filled Start Date End Date neomycin-polymyxin -HC (CORTISPORIN) 3.5-10,000-1 mg/mL-unit/mL-% otic suspensionIndicati ons:Chronic suppurative otitis media of left ear, unspecified otitis media location Administer 4 drops into the left ear 3 (three) times a day for 14 days 8.4 mL 12/09/2022 3 documented in this encounter Progress Notes * Benjamín Delong II, MD - 12/09/2022 9:15 AM CDT Established Patient Report 12/09/2022 Patient: Kristal Bustos : 1955 Diagnosis: Problem List Items Addressed This Visit ENT Dysfunction of left eustachian tube Chronic suppurative otitis media of left ear - Primary Relevant Medications gdkxhtdl-euvvlbulp-VN (CORTISPORIN) 3.5-10,000-1 mg/mL-unit/mL-% otic suspension Other Relevant Orders Aerobic culture and gram stain Drainage Ear, left Interval History: Kristal Bustos returns for an established patient visit. She was seen today for evaluation of her ears. Patient has a history of eustachian tube dysfunction in the left ear and has had a T-tube placed in the left ear in the past. She has had some infections intermittently. In August she had an ear infection in the left ear and then in September had an ear infection in the right ear that were treated by her primary care physician. Now over the last 3 weeks she is had some drainage from the left side that has been somewhat foul smelling and a feeling of muffled hearing on that side. She is not currently taking any medicine for it. In the past she did have staph infection in the left ear. Review of systems otherwise unchanged. Interval Physical [...] Ear canal is patent without mass lesions. Tympanic membrane is mildly thickened. Middle ears clear Left Ear: Normal pinna and appearance of external ear. Ear canal is patent without mass lesions. T-tube is in place. There is mucopurulent drainage in the middle ear and medial ear canal. There is some inflammation in the small amount of granulation around the ear tube. Culture of the purulence was taken and sent to pathology Oral Cavity/Oropharynx: Normal lips, teeth, and gums. [...] Respiratory: No retractions. Procedures: None Medication(s) Ordered gqwdoxfm-yrcvwpzyu-ZK (CORTISPORIN) 3.5-10,000-1 mg/mL-unit/mL-% otic suspension Sig: Administer 4 drops into the left ear 3 (three) times a day for 14 days Dispense: 8.4 mL Refill: 0 Orders Placed This Encounter Procedures Aerobic culture and gram stain Drainage Ear, left AEROBIC AND ANAEROBIC Standing Status: Future Standing Expiration Date: 12/10/2023 Assessment and Plan: This is a 67 y.o.-year-old female with chronic eustachian tube dysfunction andhas an ear tube in place. That part is stable but she has developed an acute exacerbation of chronic otitis media. I have started her on Cortisporin ear drops since her insurance will not pay for Ciprodex. We have sent a culture of the drainage for testing and we will treat her with culture driven oral antibiotics once the report is back. She is to keep water out of her ears. Patient is at moderate level medical decision making. She has a chronic problem of eustachian tube dysfunction that is stable. She is an acute exacerbation of a chronic problem of otitis media that required prescription drug management and taking a culture Benjamín Delong II, M.D. This note was generated with voice recognition software and small grammatical errors may be encountered. documented in this encounter Plan of Treatment Not on file documented as of this encounter Results * (ABNORMAL) Aerobic culture and gram stain Drainage Ear, left (12/09/2022 9:31 AM CDT) Direct Specimen Exam Stain: No polymorphonuclear leukocytes seen. Moderate Gram Positive Cocci Moderate Gram Positive Bacilli Moderate Gram Negative Bacilli This culture has been processed for aerobic organisms only. Organisms noted on the direct smear, but not recovered in culture, may reflect anaerobic organisms. Slide reviewed. ??Review is consistent with original read. JESUSITA Comment:Testing performed by : [facility], [address] [place] [address]., [id number] Report Final Report: Moderate Pasteurella multocida Resistance to quinolones, tetracyclines, trimethoprim sulfamethoxazole, and azithromycin has not been noted in Pasturella species and therefore, routine susceptibility testing is not performed. ??Some strains of Pasturella produce a beta-lactamase. (.) JESUSITA Comment:Testing performed by : [facility], [address] [place]., [address] Organism PASTEURELLA MULTOCIDA JESUSITA Drainage (Ear, left) 12/09/2022 9:31 AM CDT 12/10/2022 2:45 PM CDT Narrative JESUSITA - 12/13/2022 6:41 AM CDT AEROBIC AND ANAEROBIC Testing performed by [facility] Microbiology Laboratory ([phone]) Specimens submitted from normally sterile body sites will have all bacterial morphotypes identified. ??Specimens that contain grossly mixed mickey and/or are from body sites that are not normally sterile will be examined for Staphylococcus aureus, Pseudomonas aeruginosa, beta-hemolytic strep, vancomycin-resistant Enterococcus and fungus. ??If any of these are isolated, the organism will be reported. Current interpretive data was last revised on 2016. Benjamín Delong II, MD LAB MICROBIOLOGY - GENERA L ORDERABLES Final Result [facility] [address] [facility] [place] [address] documented in this encounter Visit Diagnoses Diagnosis Chronic suppurative otitis media of left ear, unspecified otitis media location- Primary Dysfunction of left eustachian tube Chronic suppurative otitis media of left ear, unspecified otitis media location documented in this encounter Discontinued Medications Medication Sig Discontinue Reason Start Date End Da te cyclobenzaprine (FLEXERIL) 10 mg tablet Take 10 mg by mouth Therapy completed 12/09/2022 uolejbda-ylhiyjsuf-AW (CORTISPORIN) 3.5-10,000-1 mg/mL-unit/mL-% otic suspensionIndications: Acute otitis media, left Administer 3 drops into the left ear 3 (three) times a day Therapy completed 11/29/2021 12/09/2022 documented as of this encounter Care Teams Batting Machine Operator Insulation Relationship Specialty Start Date End Date Franny Dolan PA [address] [place] [address] PCP - General Physician Garment Cutter 11/22/22 documented as of this encounter
--- OUTSIDE RECORDS SUMMARY | 2024-06-23 15:26 | XMS_ITS | Encounter Summary ---
Author Organization [facility] Address [address] [place] [address] Phone Care Team Providers Care Network Associate Name Role Phone Franny Dolan Primary Care Provider [phone] Encounter Details Date Type Department Care Team (Late st Contact Info) Description 10/10/2023 8:45 AM CDT Office Visit [facility] Otolaryngology [address], [address] [place] [address] Benjamín Delong II, MD [address] [place], [place] [id number] Chronic suppurative otitis media of left ear, unspecified otitis media location (Primary Dx) Social History Tobacco Use Types [...] Pressure - - Pulse - - Temperature 36.7 ??C (98.1 ??F) 10/10/2023 9:37 AM CD T Respiratory Rate - - Oxygen Saturation - - Inhaled Oxygen Concentration - - Weight 125 kg (275 lb 9.2 oz) 10/10/2023 9:37 AM CDT Height 162.6 cm (5' 4 ) 10/10/2023 9:37 AM CDT Body Mass Index 47.3 10/10/2023 9:37 AM CDT documented in this encounter Ordered Prescriptions Prescription Sig Dispense Quantity Refills Last Filled Start Date End Date sulfamethoxazole-t rimethoprim (Bactrim DS) 800-160 mg per tablet I tab orally twice daily for 10 days 20 tablet 10/10/2023 ofloxacin (FLOXIN) 0.3 % otic solution 5 drops to the affected ear twice daily for 1 week. 10 mL 10/10/2023 fluconazole (Diflucan) 150 mg tabletIndications: Abdominal/Pelvic Infection Take 1 tablet (150 mg total) by mouth once for 1 dose 2 tablet 10/10/2023 documented in this encounter Progress Notes * Benjamín Delong II, MD - 10/10/2023 8:45 AM CDT Established Patient Report 10/10/2023 Patient: Kristal Bustos : 1955 Diagnosis: Problem List Items Addressed This Visit ENT Chronic suppurative otitis media of left ear - Primary Interval History: Kristal Bsutos returns for an established patient visit. She was seen today for evaluation of her ears. She has a history of chronic Eustachian tube dysfunction. She has a T-tube in place in the left ear which has been present for several years. She is noticed some increase in drainage from the left ear going on for 3 weeks. There is no bleeding. Right side is not bothering her. Review of systems otherwise unchanged. Interval Physical Exam: General Appearance: Well-developed in no apparent distress. Breathing comfortably. Eyes: No proptosis. Head/Face: Normocephalic, atraumatic. No facial lesions or masses. Facial nerve intact and symmetric. Right Ear: Normal pinna and appearance of external ear. Ear canal is patent without mass lesions. The tympanic membrane is intact without significant retraction or scarring. Middle ear is clear without serous effusion, inflammation or middle ear process Left Ear: Normal pinna and appearance of external ear. Ear canal is patent without mass lesions. T-Tube is in place in the inferior aspect of the eardrum. There is moderate mucoid drainage in the medial ear canal that was suctioned down to the eardrum. There is some inflammation and mild granulation around the ear tube. Nasal Exam: External nose has no masses or lesions. The nasal septum is . Inferior turbinates are mildly hypertrophied. No intranasal polyps or masses. Drainage seen on each side of the nose is normal and clear. Oral Cavity/Oropharynx: Normal lips, teeth, and gums. Oral mucosa is moist without lesions. Tongue and floor of mouth have no lesions or masses and are soft to palpation. Palate and uvula are clear and elevate symmetrically. The oropharynx is clear. Neck: No masses, lesions, or lymphadenopathy. Trachea midline. Thyroid has no palpable nodules. Procedures: None Medication(s) Ordered ofloxacin (FLOXIN) 0.3 % otic solution Si drops to the affected ear twice daily for 1 week. Dispense: 10 mL Refill: 0 sulfamethoxazole-trimethoprim (Bactrim DS) 800-160 mg per tablet Sig: I tab orally twice daily for 10 days Dispense: 20 tablet Refill: 0 fluconazole (Diflucan) 150 mg tablet Sig: Take 1 tablet (150 mg total) by mouth once for 1 dose Dispense: 2 tablet Refill: 0 No orders of the defined types were placed in this encounter. Assessment and Plan: This is a 68 y.o.-year-old female with acute exacerbation of chronic otitis media that required prescription drug management with Floxin drops and Bactrim antibiotic. She is alsogiven Diflucan for potential candidal infection from the antibiotics. Patient is at moderate level medical decision-making. She has acute exacerbation of a chronic problem that required prescription drug management. Benjamín Delong II, M.D. This note was generated with voice recognition software and small grammatical errors may be encountered. documented in this encounter Plan of Treatment Not on file documented as of this encounter Visit Diagnoses Diagnosis Chronic suppurative otitis media of left ear, unspecified otitis media location- Primary documented in this encounter Care Teams Network Associate Relationship Specialty Start Date End Date Franny Dolan PA [address] [place] [address]. [place] [address] PCP - General Physician Correctional Guard 11/22/22 documented as of this encounter
--- OUTSIDE RECORDS SUMMARY | 2024-06-23 15:26 | XMS_ITS | Encounter Summary ---
Author Organization [facility] Healthcare Address [address] [place] [address] Care Team Providers Care Evidence Specialist Name Role Phone Franny Dolan Primary Care Provider [phone] Reason for Visit * Reason Comments Follow-up 1 yr f/u Encounter Details Date Type Department Care Team (Late st Contact Info) Description 08/17/2023 9:45 AM PROCESS CHEMIST Office Visit [facility] Medical Group Pulmonary [address] [phone] Radha Stanton, INVENTORY WORKER [address] [address] NIRANJAN (obstructive sleep apnea) (Primary Dx); Chronic fatigue; History of vitamin D deficiency; Hypersomnia; Vitamin D deficiency Social History Tobacco Use Types Packs/Day Years [...] Sign Reading Time Taken Comments Blood Pressure 112/72 08/17/2023 9:40 AM PROCESS CHEMIST Pulse 71 08/17/2023 9:40 AM PROCESS CHEMIST Temperature 37.4 ??C (99.3 ??F) 08/17/2023 9:40 AM CS T Respiratory Rate 16 08/17/2023 9:40 AM PROCESS CHEMIST Oxygen Saturation 96% 08/17/2023 9:40 AM PROCESS CHEMIST Inhaled Oxygen Concentration - - Weight 124.3 kg (274 lb) 08/17/2023 9:40 AM PROCESS CHEMIST Height 162.6 cm (5' 4 ) 08/17/2023 9:40 AM PROCESS CHEMIST Body Mass Index 47.03 08/17/2023 9:40 AM PROCESS CHEMIST documented in this encounter Progress Notes * Maximino Radha BillySruthi, INVENTORY WORKER - 08/17/2023 9:45 AM CST Images from the original note were not included. Progress Note Patient: Kristal Bustos ( - 1955) is a 68 y.o. female. Visit Date: 08/17/2023 Chief Complaint Patient presents with Follow-up 1 yr f/u History of Present Illness: This is a follow-up for new complaint chronic fatigue and NIRANJAN. The patient states she had a cold and has been suffering from chronic fatigue for the last 3 weeks. She states she also has chronic ear drainage/pain. She has notice an increase of dizziness. She is scheduled to see her primary care physician. The patient continues CPAP therapy at 17 cm water pressure. The patient recalls dreaming. The patient is snoring under the mask. Patient has daytime sleepiness but denies falling asleep at inappropriate situations. The patient no longer drives. The patient denies dry mouth and states energy level is low. We discussed products [id number] for dry mouth. Patient states her CPAP machine is starting to malfunction. She states it will ???wheeze/whistle throughout the night?? and she states it is causing her to wake. Overall compliance report from April to July 2023 shows an average use of 8 hours and 22 minutes on 99% of the nights, AHI 1.3. These results shared with the patient. The patient is benefitting from CPAP therapy. Past Medical History: Past Medical History: Diagnosis Date Allergic rhinitis Anxiety Arthritis neck Cataract Depression Diabetes (HCC) Ear problems Endometriosis HL (hearing loss) Hypertension Lichen sclerosus et atrophicus Lichen sclerosus - (Added by TW Conv) Sinusitis Thyroid disease Surgical History: Past Surgical History: Procedure Laterality Date MYRINGOTOMY W/ TUBES OR CHOLECYSTECTOMY Cholecystectomy - (Added by TW Conv) OR LAPAROSCOPY SLING OPERATION STRESS INCONT Laparoscopic Sling Operation For Stress Incontinence - (Added by TW Conv) OR NEUROPLASTY &/TRANSPOS MEDIAN NRV CARPAL TUNNE Neuroplasty Decompression Median Nerve At Carpal Tunnel - (Added by TW Conv) OR STOT/TOT HYSTERECTOMY AFTER DELIVERY Hysterectomy - (Added by TW Conv) OR TONSILLECTOMY PRIMARY/SECONDARY <AGE 12 Tonsillectomy - (Added by TW Conv) US ABDOMEN COMPLETE W LIVER DOPPLER (C) Right 02/27/2018 Current Medications: Current Outpatient Medications Medication Sig Dispense Refill acetaminophen ER (TYLENOL) 650 mg 8 hr tablet Take 1 tablet (650 mg total) by mouth every 6 (six) hours as needed aspirin 81 mg enteric coated tablet Take 1 tablet (81 mg total) by mouth daily busPIRone (BUSPAR) 7.5 mg tablet cetirizine (ZyrTEC) [address] (CYMBALTA) 30 mg capsule fenofibrate micronized (LOFIBRA) 134 mg capsule fluticasone propionate (FLONASE) 50 mcg/actuation nasal spray Administer 2 sprays into each nostrildaily glucosamine-chondroitin 500-400 mg tablet Take 1 tablet by mouth 3 (three) times a day hydroCHLOROthiazide (HYDRODIURIL) 12.5 mg tablet losartan (COZAAR) 50 mg tablet Take 1 tablet (50 mg total) by mouth daily metFORMIN (GLUCOPHAGE) 500 mg tablet Take 1 tablet (500 mg total) by mouth daily multivitamin capsule Take 1 capsule by mouth daily nystatin powder Apply topically 3 (three) times a day nystatin-triamcinolone cream APPLY TO AFFECTED AREA TWICE A DAY NEEDED sulfamethoxazole-trimethoprim (BACTRIM DS) 800-160 mg per tablet 1 bid x 10 days 20 tablet 0 Synthroid 88 mcg tablet No current facility-administered medications for this visit. Allergies: Allergies Allergen Reactions Bee Pollen Rhinitis Levofloxacin Other (See comments) Makes her anxious Mite Extract Rhinitis Mold Rhinitis Family History: Family History Problem Relation Age of Onset Diabetes Mother Family history of diabetes mellitus - (Added by TW Conv) Heart disease Mother Family history of cardiac disorder - (Added by TW Conv) Cancer Sister Family history of malignant neoplasm - (Added by TW Conv) Cancer Brother Family history of malignant neoplasm - (Added by TW Conv) Heart attack Father Family history of myocardial infarction - (Added by TW Conv) Social History: Social History Tobacco Use Smoking status: Former Current packs/day: 0.00 Types: Cigarettes Quit date: 1998 Years since quittin.1 Smokeless tobacco: Never Substance and Sexual Activity Drug use: Yes Types: Alcohol Comment: Rarely Sexual activity: None Alcohol Use: Not on file Review of Systems: Review of Systems Constitutional: Negative for appetite change, fever and unexpected weight change. HENT: Positive for rhinorrhea and sinus pressure. Negative for sinus pain, sore throat and tinnitus. Respiratory: Negative for cough, shortness of breath and wheezing. Cardiovascular: Negative for chest pain, palpitations and leg swelling. Gastrointestinal: Negative for abdominal pain, diarrhea, nausea and vomiting. Genitourinary: Negative for hematuria. Musculoskeletal: Positive for arthralgias, back pain and myalgias. Skin: Negative for color change. Allergic/Immunologic: Positive for environmental allergies. Negative for food allergies. Neurological: Positive for light-headedness and headaches. Negative for dizziness. Physical Exam: Vitals: 08/17/23 0940 BP: 112/72 Pulse: 71 Resp: 16 Temp: 37.4 ??C (99.3 ??F) SpO2: 96% Weight: 124.3 kg (274 lb) Height: 162.6 cm (5' 4 ) Physical Exam HENT: Head: Normocephalic and atraumatic. Eyes: Pupils: Pupils are equal, round, and reactive to light. Cardiovascular: Rate and Rhythm: Normal rate and regular rhythm. Pulmonary: Effort: Pulmonary effort is normal. Breath sounds: Normal breath sounds. Abdominal: General: Bowel sounds are normal. Palpations: Abdomen is soft. Musculoskeletal: General: Normal range of motion. Cervical back: Normal range of motion and neck supple. Skin: General: Skin is warm and dry. Neurological: Mental Status: She is alert and oriented to person, place, and time. Data Reviewed Images: No results found. Assessment and Plan: Diagnoses and all orders for this visit: NIRANJAN (obstructive sleep apnea) (Primary) Assessment & Plan: Due to the snoring and increased hypersomnia, I have increased the pressure to 18 cm water pressure. I did instruct the patient to call into the office if patient needs the CPAP readjusted to 17 cm water pressure. Denied need for supplies. DME adapt. Chronic fatigue Assessment & Plan: I have ordered labs. The patient is also going to follow-up with her primary care Orders: - Folate; Future - Vitamin D 25 hydroxy; Future - Vitamin B12; Future - TSH; Future - T4, free; Future History of vitamin D deficiency - Vitamin D 25 hydroxy; Future Hypersomnia - Vitamin D 25 hydroxy; Future Vitamin D deficiency - Vitamin D 25 hydroxy; Future Rendering Provider & Department: Radha Stanton NP Cosigned by Eric Gonzalez MD at 08/17/2023 5:06 PM PROCESS CHEMIST ESS CHEMIST ESS CHEMIST documented in this encounter Miscellaneous Notes * Assessment & Plan Note - Radha Stanton NP - 08/17/2023 10:19 AM PROCESS CHEMIST Associated Problem(s): Chronic fatigue I have ordered labs. The patient is also going to follow-up with her primary care ESS CHEMIST * Assessment & Plan Note - Radha Stanton NP - 08/17/2023 10:19 AM PROCESS CHEMIST Associated Problem(s): NIRANJAN (obstructive sleep apnea) Due to the snoring and increased hypersomnia, I have increased the pressure to 18 cm water pressure. I did instruct the patient to call into the office if patient needs the CPAP readjusted to 17 cm water pressure. Denied need for supplies. DME adapt. ESS CHEMIST documented in this encounter Plan of Treatment Not on file documented as of this encounter Procedures Procedure Name Priority Date/Time Associated Diagnosis Comments VITAMIN D 25 HYDROXY Routine 08/17/2023 10:41 AM PROCESS CHEMIST Chronic fatigue History of vitamin D deficiency Hypersomnia Vitamin D deficiency TSH Routine 08/17/2023 10:41 AM PROCESS CHEMIST Chronic fatigue T4, FREE Routine 08/17/2023 10:41 AM PROCESS CHEMIST Chronic fatigue FOLATE Routine 08/17/2023 10:41 AM PROCESS CHEMIST Chronic fatigue VITAMIN B12 Routine 08/17/2023 10:41 AM PROCESS CHEMIST Chronic fatigue documented in this encounter Results * T4, free (08/17/2023 10:41 AM PROCESS CHEMIST) Pathologist [facility] Free T4 1.3 0.8 - 1.8 ng/dL [facility] Blood 08/17/2023 10:4 1 AM PROCESS CHEMIST 08/17/2023 10:41 AM PROCESS CHEMIST Radha Stanton INVENTORY WORKER LAB BLOOD ORDERABLES Final Result [facility] [address] [place] [address] * TSH (08/17/2023 10:41 AM PROCESS CHEMIST) Pathologist [facility] TSH 1.01 0.40 - 4.50 mIU/L [facility] Blood 08/17/2023 10:4 1 AM PROCESS CHEMIST 08/17/2023 10:41 AM PROCESS CHEMIST Radha Stanton INVENTORY WORKER LAB BLOOD ORDERABLES Final Result Performing Organization Address [facility]/ZIP Co de Phone Number [facility] [address] [place] [address] * Vitamin B12 (08/17/2023 10:41 AM PROCESS CHEMIST) Pathologist [facility] Vitamin B12 679 200 - 1,100 pg/mL [facility] Blood 08/17/2023 10:4 1 AM PROCESS CHEMIST 08/17/2023 10:41 AM PROCESS CHEMIST Radha Stanton INVENTORY WORKER LAB BLOOD ORDERABLES Final Result Performing Organization Address City/[facility] Co de Phone Number [facility] [address] [place] [address] * Vitamin D 25 hydroxy (08/17/2023 10:41 AM PROCESS CHEMIST) Pathologist [facility] Vitamin D 25-OH 37 30 - 100 ng/mL [facility] Comment: Vitamin D Status ? 25-OH Vitamin D: Deficiency: ?<20 ng/mL Insufficiency: ? 20 - 29 ng/mL Optimal: ? > or = 30 ng/mL For 25-OH Vitamin D testing on patients on D2-supplementation and patients for whom quantitation of D2 and D3 fractions is required, the QuestAssureD(TM) 25-OH VIT D, (D2,D3), LC/MS/MS is recommended: order code 34466 (patients >2yrs). See Note 1 Note 1 For additional information, please refer to http://education.[employer]/faq/XNQ654 (This link is being provided for informational/ educational purposes only.) Blood 08/17/2023 10:4 1 AM PROCESS CHEMIST 08/17/2023 10:41 AM PROCESS CHEMIST us Radha Stanton INVENTORY WORKER LAB BLOOD ORDERABLES Final Result Performing Organization Address City/State/[facility] Co mn Phone Number [facility] [address] [place] [address] * Folate (08/17/2023 10:41 AM PROCESS CHEMIST) Pathologist [facility] Folate, Serum >24.0 ng/mL [facility] Comment: ? Reference Range ? Low: ? <3.4 ? Borderline: ?3.4-5.4 ? Normal: ?>5.4 Blood 08/17/2023 10:4 1 AM PROCESS CHEMIST 08/17/2023 10:41 AM PROCESS CHEMIST Radha Stanton INVENTORY WORKER LAB BLOOD ORDERABLES Final Result [facility] [address] [place] [address] documented in this encounter Visit Diagnoses Diagnosis NIRANJAN (obstructive sleep apnea)- Primary Obstructive sleep apnea (adult) (pediatric) Chronic fatigue Other malaise and fatigue History of vitamin D deficiency Hypersomnia Hypersomnia, unspecified Vitamin D deficiency documented in this encounter Historical Medications * This list may reflect changes made after this encounter. losartan (COZAAR) 50 mg tablet Take 1 tablet (50 mg total) by mouth daily 04/03/2023 added in this encounter Care Teams Evidence Specialist Relationship Specialty Start Date End Date Franny Dolan PA [address] [place] [id number] PCP - General Physician Digital Media Producer 11/22/22 documented as of this encounter
--- OUTSIDE RECORDS SUMMARY | 2024-06-23 15:26 | XMS_ITS | Encounter Summary ---
Author Organization [facility] Healthcare Address [address] [place] [address] Care Team Providers Care Gantry Rigger Name Role Phone Franny Dolan Primary Care Provider [phone] Encounter Details Date Type Department Care Team (Late st Contact Info) Description 11/02/2023 11:15 AM CDT Office Visit [facility] Medical Group Pulmonary [address] [place] [address] Eric Goznalez MD [address] [facility] [address] [address] NIRANJAN (obstructive sleep apnea) (Primary Dx); Chronic fatigue Social History Tobacco Use Types Packs/Day Years [...] Sign Reading Time Taken Comments Blood Pressure 144/70 11/02/2023 10:58 AM CDT Pulse 73 11/02/2023 10:58 AM CDT Temperature 36.9 ??C (98.4 ??F) 11/02/2023 10:58 AM C DT Respiratory Rate 18 11/02/2023 10:58 AM CDT Oxygen Saturation 95% 11/02/2023 10:58 AM CDT Inhaled Oxygen Concentration - - Weight 121.1 kg (267 lb) 11/02/2023 10:58 AM CDT Height 162.6 cm (5' 4 ) 11/02/2023 10:58 AM CDT Body Mass Index 45.83 11/02/2023 10:58 AM CDT documented in this encounter Progress Notes * Eric Gonzalez MD - 11/02/2023 11:15 AM CDT Images from the original note were not included. Progress Note Patient: Kristal Bustos ( - 1955) is a 68 y.o. female. Visit Date: 11/02/2023 History of Present Illness: The patient is a 68 year old female with obstructive sleep apnea syndrome that returns for follow-up. She did get a new CPAP unit in early September 2023 and the pressure was increased to 18 cm water pressure. She states that her fatigue resolved after starting on the new unit. However, she fell and broke her nose on the 14 October 2023 and required surgery on October 22. She is still recovering and the ENT physician has told her not to use the CPAP unit for now. She does have a fullface mask whichgoes over the bridge of the nose. All of the previous blood work that she had following last visit was normal. Past Medical History: Past Medical History: Diagnosis Date Allergic rhinitis Anxiety Arthritis neck Cataract Depression Diabetes (HCC) Ear problems Endometriosis HL (hearing loss) Hypertension Lichen sclerosus et atrophicus Lichen sclerosus - (Added by Conv) Sinusitis Thyroid disease Surgical History: Past Surgical History: Procedure Laterality Date MYRINGOTOMY W/ TUBES [place] CHOLECYSTECTOMY Cholecystectomy - (Added by Conv) [place] LAPAROSCOPY SLING OPERATION STRESS INCONT Laparoscopic Sling Operation For Stress Incontinence - (Added by Conv) [place] NEUROPLASTY &/TRANSPOS MEDIAN NRV CARPAL TUNNE Neuroplasty Decompression Median Nerve At Carpal Tunnel - (Added by Conv) [place] STOT/TOT HYSTERECTOMY AFTER DELIVERY Hysterectomy - (Added by Conv) [place] TONSILLECTOMY PRIMARY/SECONDARY <AGE 12 Tonsillectomy - (Added by Conv) US ABDOMEN COMPLETE W LIVER DOPPLER [...] TO AFFECTED AREA TWICE A DAY NEEDED ofloxacin (FLOXIN) 0.3 % otic solution 5 drops to the affected ear twice daily for 1 week. 10 mL 0 sulfamethoxazole-trimethoprim (BACTRIM DS) 800-160 mg per tablet 1 bid x 10 days 20 tablet 0 sulfamethoxazole-trimethoprim (Bactrim DS) 800-160 mg per tablet I tab orally twice daily for 10 days 20 tablet 0 Synthroid 88 [...] Types: Cigarettes Quit date: 1998 Years since quittin.3 Smokeless tobacco: Never Substance and Sexual Activity Drug use: Yes Types: Alcohol Comment: Rarely Sexual activity: None Alcohol Use: Not on file Review of Systems: Review of Systems Constitutional: Negative for appetite change, fever and unexpected weight change. HENT: Negative for rhinorrhea, sinus pressure, sinus pain, sore throat and tinnitus. Respiratory: Negative for cough, shortness of breath and wheezing. Cardiovascular: Negative for chest pain, palpitations and leg swelling. Gastrointestinal: Negative for abdominal pain, diarrhea and nausea. Genitourinary: Negative for hematuria. Musculoskeletal: Positive for arthralgias. Negative for back pain and myalgias. Skin: Negative for color change. Allergic/Immunologic: Negative for environmental allergies and food allergies. Neurological: Negative for dizziness and light-headedness. Physical Exam: Vitals: 11/02/23 1058 BP: 144/70 Pulse: 73 Resp: 18 Temp: 36.9 ??C (98.4 ??F) SpO2: 95% Weight: 121.1 kg (267 lb) Height: 162.6 cm (5' 4 ) Physical Exam Constitutional: Appearance: She is well-developed. HENT: Head: Normocephalic and atraumatic. Nose: Comments: She has bruising over the bridge of her nose Mouth/Throat: Comments: Grade 3 oral aperture Eyes: Pupils: Pupils are equal, round, and [...] (obstructive sleep apnea) (Primary) Assessment & Plan: The patient continues to benefit from CPAP at 18 cm water pressure for ongoing symptoms of NIRANJAN. However, she broke her nose on 14 October 2023 and has not yet been cleared by the ENT physician to resume CPAP therapy because she has a fullface mask and the mask goes over the bridge of the nose. I did ask her to contact [facility] to see if she will be a candidate for the F30 or DreamWear fullface mask. She will follow up here in 3 months. Chronic fatigue Assessment & Plan: The fatigue resolved after receiving the new CPAP unit set at 18 cm water pressure. The thyroid function tests, vitamin-D level, vitamin B12 and folate levels were all normal. Rendering Provider & Department: Eric Gonzalez MD documented in this encounter Miscellaneous Notes * Assessment & Plan Note - Eric Gonzalez MD - 11/02/2023 11:23 AM CDT Associated Problem(s): Chronic fatigue The fatigue resolved after receiving the new CPAP unit set at 18 cm water pressure. The thyroid function tests, vitamin-D level, vitamin B12 and folate levels were all normal. * Assessment & Plan Note - Eric Gonzalez MD - 11/02/2023 11:23 AM CDT Associated Problem(s): NIRANJAN (obstructive sleep apnea) The patient continues to benefit from CPAP at 18 cm water pressure for ongoing symptoms of NIRANJAN. However, she broke her nose on 14 October 2023 and has not yet been cleared by the ENT physician to resume CPAP therapy because she has a fullface mask and the mask goes over the bridge of the nose. I did ask her to contact [facility] to see if she will be a candidate for the F30 or DreamWear fullface mask. She will follow up here in 3 months. documented in this encounter Plan of Treatment Not on file documented as of this encounter Visit Diagnoses Diagnosis NIRANJAN (obstructive sleep apnea)- Primary Obstructive sleep apnea (adult) (pediatric) Chronic fatigue Other malaise and fatigue documented in this encounter Care Teams Gantry Rigger Relationship Specialty Start Date End Date Franny Dolan PA [address] [place] [id number] PCP - General Physician Guest Services 11/22/22 documented as of this encounter
--- OUTSIDE RECORDS SUMMARY | 2024-06-23 15:26 | XMS_ITS | Referral Summary ---
Author Organization [facility] Address [address] [place] [address] Care Team Providers Care Tennis Director Name Role Phone Franny Dolan Primary Care Provider [phone] Allergies Active Allergy Reactions Criticality Noted Date [...] normal. Assessment & Plan (08/17/2023 10:19 AM BREAKFAST HOST): I have ordered labs. The patient is also going to follow-up with her primary care Chronic suppurative otitis media of left ear Acute cough 08/16/2022 Assessment & Plan (08/16/2022 11:53 AM BREAKFAST HOST): The patient is going to see her [...] months. Assessment & Plan (08/17/2023 10:19 AM BREAKFAST HOST): Due to the snoring and increased hypersomnia, I have increased the pressure to 18 cm water pressure. I did instruct the patient to call into the office if patient needs the CPAP readjusted to 17 cm water pressure. Denied need for supplies. DME adapt. Assessment & Plan (08/16/2022 11:53 AM BREAKFAST HOST): Patient continue to wear CPAP at 17 cm water pressure while sleeping. Her DME is adapt. Assessment & Plan (08/10/2021 11:35 AM BREAKFAST HOST): Due to the patient stating that she [...] 02/22/2020 Dysfunction of left eustachian tube 02/22/2020 Social History Tobacco Use Types Packs/Day Years [...] 02/08/2024 10:32 AM CDT Plan of Treatment Not on file Procedures Procedure Name Priority Date/Time Associated Diagnosis Comments HEPATITIS PANEL, ACUTE Routine 10/11/2018 7:03 AM CDT DEXA AXIAL SKELETON BONE DENSITY 1 OR MORE SITES Routine 09/27/2016 12:13 PM CDT SCREENING MAMMOGRAM BILATERAL W DYLAN Routine 09/27/2016 12:12 PM CDT from Last 3 Months or Most Recently Relevant to Health Maintenance Results * Hepatitis panel, acute (10/11/2018 7:03 AM CDT) HepBsAg NONREACT NONREACTIVE [facility] Comment: Siemens Advanced Voice [employer]ognition SystemsaurXP using THUY (chemiluminescent immunoassay) technology. NONREACTIVE: IgM antibodies to Hepatitis B Surface antigen not detected. REACTIVE: IgM antibodies to Hepatitis B Surface antigen detected. Reactive results will be confirmed by neutralization testing. HBsAb qn <3.10 mIU/mL [facility] Comment: Siemens CentaurXP using THUY (chemiluminescent immunoassay) technology. 9.99 IU/L or less.....NONREACTIVE: IgM antibodies to Hepatitis B Surface antibody are not detected. 10.00 IU/L or greater..REACTIVE: IgM antibodies to Hepatitis B Surface antibody are detected. Hep B core IgM NONREACT NONREACTIVE [facility] Comment: Siemens CentaurXP using THUY (chemiluminescent immunoassay) technology. NONREACTIVE: IgM antibodies to Hepatitis B Core antigen not detected. EQUIVOCAL: IgM antibodies to Hepatitis B Core antigen may or may not be present. Obtain a ??new specimen and retest. REACTIVE: IgM antibodies to Hepatitis B Core antigen detected. Hep A IgM NONREACT NONREACTIVE [facility] Comment: Siemens CentaurXP using THUY (chemiluminescent immunoassay) technology. NONREACTIVE: IgM antibodies to Hepatitis A not detected. This does not exclude possibility of exposure to Hepatitis A or early acute infection. EQUIVOCAL:IgM antibodies to Hepatitis A may or may not be present. Suggest recollection and retest. REACTIVE: Antibodies to Hepatitis A detected. Hep C Ab NONREACT NONREACTIVE [facility] Comment: Siemens CentaurXP using THUY (chemiluminescent immunoassay) [...] LAB MICROBIOLOGY - GENERAL ORDERABLES Final Result [place] [id number] [place] [address], [facility] [phone] * Dexa Axial Skeleton Bone Density 1 [...] Kidd M.D. AB: 01:48 PM 01:48 PM BM [EOD] Narrative 09/27/2016 1:52 PM CDT EXAMINATION: DXA Bone Density Examination (Hip and Spine). HISTORY: ??61-year-old post menopausal female with a stated history of osteoporosis. Current Height: ??65.5 inches Maximum Height: ??65.5 inches Weight: ??275 pounds RISK FACTORS: History of a fracture as an adult which did not result from significant trauma. COMPARISON(S): None. COMPUTER DRAFTER/MODEL: ??Discovery SL ([id number]). FINDINGS: AP lumbar spine ??L1-L4 Total BMD is 0.918 g/ot4U-dsoyz is -1.2 Left Hip Total BMD is 1.015 g/lz9T-qcvxb is 0.6 Neck BMD is 0.772 g/zt8S-uiums is -0.7 Procedure Note Provider, MD Kellie - 11/10/2020 EXAMINATION: DXA Bone Density Examination (Hip and Spine). HISTORY: 61-year-old post menopausal female with a stated history of osteoporosis. Current Height: 65.5 inches Maximum Height: 65.5 inches Weight: 275 pounds RISK FACTORS: History of a fracture as an adult which did not result from significant trauma. COMPARISON(S): None. COMPUTER DRAFTER/MODEL: Discovery SL ([id number]). FINDINGS: AP lumbar spine L1-L4 Total BMD is 0.918 g/xa3N-znvch is -1.2 Left Hip Total BMD is 1.015 g/ap9W-qyemn is 0.6 Neck BMD is 0.772 g/jp7I-vekxg is -0.7 IMPRESSION: 1. Low bone mass [...] by: Lowell Kidd M.D. ab/penrad:09/27/2016 13:55:58 ?? Kapok Machine Operator: Kathy DUCKWORTH (Any)(M), [facility] letter sent: Normal Exam ?? Reading location: [...] exams dated: ??09/25/2015 mammogram, 06/02/2014 mammogram - [facility], 05/10/2013 mammogram - [facility], and 05/14/2012 mammogram - [facility]. ?? BREAST TISSUE: The tissue of [...] to exams dated: 09/25/2015 mammogram,06/02/2014 mammogram - [facility], 05/10/2013 mammogram - [facility],and 05/14/2012 mammogram - [facility]. BREAST TISSUE: The tissue of both [...] exam. Electronically signed by: Lowell patel/dev:09/27/2016 13:55:58 Kapok Machine Operator: Kathy Cortez)(Alex), [facility] letter sent: Normal Exam Reading location: BI-RADS: 2 Benign [EOD] us Jeffrey Staples MD IMG MAMMO PROCEDURES Final Result from Last 3 Months or Most Recently Relevant to Health Maintenance Insurance [employer] Care Teams Tennis Director Relationship Specialty Start Date End Date Franny Dolan PA [address] [place] [address] [phone] PCP - General Physician Litigation Manager 11/22/22
--- OUTSIDE RECORDS SUMMARY | 2024-06-23 15:26 | XMS_ITS | Encounter Summary ---
Author Organization [facility] Address [address] [place] [address] Care Team Providers Care Sports Photographer Name Role Phone Alex Browne MD Primary Care Provider [phone] Encounter Details Date Type Department Care Team (Latest Contact Info) Description 08/30/2021 6:40 PM REDEVELOPMENT MANAGER - 08/30/2021 11:59 PM REDEVELOPMENT MANAGER Hospital Encounter [facility] [address] [place] [id number] Discharge Disposition: Discharge to home or self care Social History Tobacco Use Types Packs/Day Years [...] Apply topically 3 (three) times a day 03/22/2021 nystatin-triamci nolone cream APPLY TO AFFECTED AREA TWICE A DAY NEEDED 09/16/2020 Synthroid 88 mcg tabletIndication s:100 mg- per patient 11/22/2019 ciprofloxacin-de xAMETHasone (CIPRODEX) otic suspensionIndica tions:Acute otitis media, left Administer 3 drops into the left ear 2 (two) times a day for 14 days 7.5 mL 08/30/2021 2 cyclobenzaprine (FLEXERIL) 10 mg tablet Take 10 mg by mouth 3 docusate sodium (COLACE) 100 mg capsule 06/03/2021 2 fluconazole (Diflucan) 150 mg tabletIndication s:Acute recurrent maxillary sinusitis 1 tab po bid 2 tablet 03/06/2020 2 documented as of this encounter Discharge Disposition Disposition Code Departure Means Destination Discharge to home or self care documented in this encounter Plan of Treatment Not on file documented as of this encounter Procedures Procedure Name Priority Date/Time Associated Diagnosis Comments AEROBIC AND ANAEROBIC CULTURE AND GRAM STAIN Routine 08/30/2021 5:40 PM REDEVELOPMENT MANAGER documented in this encounter Results * (ABNORMAL) Aerobic and anaerobic culture and gram stain Wound Ear, left (08/30/2021 5:40 PM REDEVELOPMENT MANAGER) Direct Specimen Exam Stain: No polymorphonuclear leukocytes seen. Abundant Gram Positive Cocci Moderate Gram Positive Bacilli JESUSITA COLEMAN Comment:Testing performed by : [facility], [address] [place] [address], [place]., [address] Report Final Report: Abundant Staphylococcus aureus Methicillin susceptible (MSSA) by penicillin binding protein 2a (PBP2a) testing. Moderate Mixed aerobic and anaerobic microorganisms (.) JESUSITA COLEMAN Comment:Testing performed by : [facility], [address] [facility], [place]., [address] Organism STAPHYLOCOCCUS AUREUS JESUSITA Organism MIXED AEROBIC AND ANAEROBIC MICROORGANISMS JESUSITA Wound (Ear, left) 08/30/2021 5:40 PM REDEVELOPMENT MANAGER 08/31/2021 9:46 PM REDEVELOPMENT MANAGER Narrative JESUSITA COLEMAN - 09/09/2021 2:59 PM CDT Specimen received on an ESwab. Collection date/time has been modified to:08/30/2021 17:40. Previous Collection date/time: 08/31/2021 17:40. Testing performed by [facility] Microbiology Laboratory ([phone]) Specimens submitted from normally sterile body sites will have all bacterial morphotypes identified. Specimens that contain grossly mixed mickey and/or are from body sites that are not normally sterile will be examined for Staphylococcus aureus, Pseudomonas aeruginosa, beta-hemolytic strep, vancomycin-resistant Enterococcus, Bacteroides, Parabacteroides, Clostridium perfringens and fungus. If any of these are isolated, the organism will be reported. Current interpretive data was last revised on 2019. Organism Antibiotic Method Susceptibility Staphylococcus aureus Vancomycin INTERPRETATION Susceptible Staphylococcus aureus Trimethoprim with Sulfamethoxazole INTERPRETATION Susceptible Staphylococcus aureus Linezolid INTERPRETATION Susceptible Staphylococcus aureus Doxycycline INTERPRETATION Susceptible Staphylococcus aureus Clindamycin INTERPRETATION Susceptible Staphylococcus aureus Erythromycin INTERPRETATION Susceptible Staphylococcus aureus Oxacillin INTERPRETATION Susceptible Staphylococcus aureus Cefazolin INTERPRETATION Susceptible Staphylococcus aureus Ceftriaxone INTERPRETATION Susceptible us Benjamín Delong II, MD LAB MICROBIOLOGY - GENERA L ORDERABLES Final Result [facility] [address] [facility] Department [place] [address] documented in this encounter Visit Diagnoses Not on filedocumented in this encounter Care Teams Sports Photographer Relationship Specialty Start Date End Date Alex Browne MD [address] [place] [address] PCP - General 10/11/18 11/21/22 documented as of this encounter
--- OUTSIDE RECORDS SUMMARY | 2024-06-23 15:26 | XMS_ITS | Encounter Summary ---
Author Organization [facility] Address [address] [facility] [address] [place] [address] Care Team Providers Care Coin Machine Service Repairer Name Role Phone Alex Browne MD Primary Care Provider [phone] Encounter Details Date Type Department Care Team (Late st Contact Info) Description 08/10/2021 Orders Only [facility] Medical [facility] [address] [address] Eric Gonzalez MD [facility] [address] [address] Obstructive sleep apnea (Primary Dx) Social History Tobacco Use Types Packs/Day Years Used Date Smoking Tobacco: Former Cigarettes Q uit: 1998 Smokeless Tobacco: Never Comments Unknown Sex and Gender Information Value Date Recorded Sex Assigned at Not on file Legal Sex Female 12:44 PM CDT Gender Identity Not on file Sexual Orientation Not on file documented as of this encounter Progress Notes * Florecita Duff CMA - 08/10/2021 11:32 AM CST Placed order with [facility] to adjust pressure to 17 cm h20 and full set of supplies. ENTER MAINTENANCE documented in this encounter Plan of Treatment Not on file documented as of this encounter Visit Diagnoses Diagnosis Obstructive sleep apnea- Primary Obstructive sleep apnea (adult) (pediatric) documented in this encounter Care Teams Coin Machine Service Repairer Relationship Specialty Start Date End Date Alex Browne MD [address] [facility] [place] [address] PCP - General 10/11/18 11/21/22 documented as of this encounter
--- OUTSIDE RECORDS SUMMARY | 2024-06-23 15:26 | XMS_ITS | Encounter Summary ---
Author Organization [facility] Healthcare Address [address] [place] [address] Care Team Providers Care Rafter Cutting Machine Operator Name Role Phone Franny Dolan Primary Care Provider [phone] Reason for Visit * Reason Comments Return Patient Encounter Details Date Type Department Care Team (Late st Contact Info) Description 02/08/2024 10:45 AM CDT Office Visit [facility] Pulmonary [address] [place] [address] Radha Stanton, QUALITY IMPROVEMENT MANAGER [address] [facility] [address] [address] NIRANJAN (obstructive sleep apnea) (Primary [...] Mass Index 45.83 02/08/2024 10:32 AM CDT documented in this encounter Progress Notes * Radha Stanton, QUALITY IMPROVEMENT MANAGER - 02/08/2024 10:45 AM CDT Images from the original note were not included. Progress Note Patient: Kristal Bustos ( - 1955) is a 68 y.o. female. Visit Date: 02/08/2024 Chief Complaint Patient presents with Return Patient History of Present Illness: This is a follow-up for NIRANJAN. The patient continues CPAP therapy at 18 cm water pressure. The patient recalls dreaming. The patient denies consistent snoring under the mask. Patient has daytime sleepiness but denies falling asleep at inappropriate situations or while driving. The patient has dry mouth and states energy level is good. We discussed products [id number] for dry mouth. Overall compliance report from to February 13, 2024 shows an average use 6 hours and 50 minutes on 93% of the nights, AHI 0.7. These results shared with the patient. The patient is benefitting from CPAP therapy. Past Medical History: Past Medical History: Diagnosis Date Allergic rhinitis Anxiety Arthritis neck Cataract Depression Diabetes (HCC) Ear problems Endometriosis HL (hearing loss) Hypertension Lichen sclerosus et atrophicus Lichen sclerosus - (Added by TW Conv) Sinusitis Thyroid disease Surgical History: Past Surgical History: Procedure Laterality Date MYRINGOTOMY W/ TUBES NV CHOLECYSTECTOMY Cholecystectomy - (Added by TW Conv) NV LAPAROSCOPY SLING OPERATION STRESS INCONT Laparoscopic Sling Operation For Stress Incontinence - (Added by TW Conv) NV NEUROPLASTY &/TRANSPOS MEDIAN NRV CARPAL TUNNE Neuroplasty Decompression Median Nerve At Carpal Tunnel - (Added by TW Conv) NV STOT/TOT HYSTERECTOMY AFTER DELIVERY Hysterectomy - (Added by TW Conv) NV TONSILLECTOMY PRIMARY/SECONDARY <AGE 12 Tonsillectomy - (Added [...] Types: Cigarettes Quit date: 1998 Years since quittin.6 Smokeless tobacco: Never Substance and Sexual Activity Drug use: Yes Types: Alcohol Comment: Rarely Sexual activity: None Alcohol Use: Not on file Review of Systems: Review of Systems Constitutional: Negative for appetite change, fever and unexpected weight change. HENT: Positive for sinus pressure. Negative for rhinorrhea, sinus pain, sore throat and tinnitus. Allergy Respiratory: Negative for cough, shortness of breath and wheezing. Cardiovascular: Negative for chest pain, palpitations and leg swelling. Gastrointestinal: Negative for abdominal pain, diarrhea, nausea and vomiting. Genitourinary: Negative for hematuria. Musculoskeletal: Positive for arthralgias. Negative for back pain and myalgias. Skin: Negative for color change. Allergic/Immunologic: Positive for environmental allergies. Negative for food allergies. Neurological: Positive for light-headedness. Negative for dizziness and headaches. BG related Physical Exam: Vitals: 02/08/24 1032 BP: 118/60 Pulse: 70 Resp: 18 Temp: 36 ??C (96.8 ??F) SpO2: 95% Weight: 121.1 kg (267 [...] apnea) (Primary) Assessment & Plan: Due to continued symptoms, the patient will continue CPAP at 18 cm water pressure. Denied need for supplies. DME adapt Chronic fatigue Assessment & Plan: Has improved with the use of CPAP Rendering Provider & Department: Radha Stanton NP Cosigned by Eric Gonzalez MD at 02/08/2024 11:55 AM CDT documented in this encounter Miscellaneous Notes * Assessment & Plan Note - Radha Stanton NP - 02/08/2024 10:51 AM CDT Associated Problem(s): NIRANJAN (obstructive sleep apnea) Due to continued symptoms, the patient will continue CPAP at 18 cm water pressure. Denied need for supplies. DME adapt * Assessment & Plan Note - Radha Stanton NP - 02/08/2024 10:50 AM CDT Associated Problem(s): Chronic fatigue Has improved with the use of CPAP documented in this encounter Plan of Treatment Not on file documented as of this encounter Visit Diagnoses Diagnosis NIRANJAN (obstructive sleep apnea)- Primary Obstructive sleep apnea (adult) (pediatric) Chronic fatigue Other malaise and fatigue documented in this encounter Care Teams Rafter Cutting Machine Operator Relationship Specialty Start Date End Date Franny Dolan PA [address] [place] [id number] PCP - General Physician Executive Director Of Nursing 11/22/22 documented as of this encounter
--- OUTSIDE RECORDS SUMMARY | 2024-06-23 15:26 | XMS_ITS | Encounter Summary ---
Author Organization [facility] Healthcare Address [address] [place] [address] Care Team Providers Care Supervisor Production Department Name Role Phone Franny Dolan Primary Care Provider Encounter Details Date Type Department Care Team (Latest Contact Info) Description 12/09/2022 5:47 AM CDT - 12/09/2022 11:59 PM CDT Hospital Encounter [facility] [place] [address] Chronic suppurative otitis media of left ear, unspecified otitis media location Discharge Disposition: Discharge to home or self [...] by mouth daily busPIRone (BUSPAR) 7.5 mg tabletIndications :2 times per day 08/19/2020 cetirizine (ZyrTEC) 10 mg tablet 01/30/[address] (CYMBALTA) 30 mg capsule 02/16/2020 fenofibrate micronized (LOFIBRA) 134 mg capsule 01/13/2020 fluticasone propionate (FLONASE) 50 mcg/actuation nasal spray Administer 2 sprays into each nostril daily glucosamine-chond roitin 500-400 mg tablet Take 1 tablet by mouth 3 (three) times a day hydroCHLOROthiazi de (HYDRODIURIL) 12.5 mg tablet 12/12/2019 metFORMIN (GLUCOPHAGE) 500 mg tabletIndications :two times per day Take 1 tablet (500 mg total) by mouth daily 01/23/2020 multivitamin capsule Take 1 capsule by mouth daily nystatin powder Apply topically 3 (three) times a day 03/22/2021 nystatin-triamcin olone cream APPLY TO AFFECTED AREA TWICE A DAY NEEDED 09/16/2020 Synthroid 88 mcg tabletIndications :100 mg- per patient 11/22/2019 neomycin-polymyxi n-HC (CORTISPORIN) 3.5-10,000-1 mg/mL-unit/mL-% otic suspensionIndicat ions:Chronic suppurative otitis media of left ear, unspecified otitis media location Administer 4 drops into the left ear 3 (three) times a day for 14 days 8.4 mL 12/09/2022 3 documented as of this encounter Discharge Disposition Disposition Code Departure Means Destination Discharge to home or self care documented in this encounter Plan of Treatment Not on file documented as of this encounter Procedures Procedure Name Priority Date/Time Associated Diagnosis Comments AEROBIC CULTURE AND GRAM STAIN Routine 12/09/2022 9:31 AM CDT Chronic suppurative otitis media of left ear, unspecified otitis media location documented in this encounter Results * (ABNORMAL) Aerobic culture [...] ??Review is consistent with original read. JESUSITA COLEMAN Comment:Testing performed by : [facility], [address] [facility], [place]., [address] Report Final Report: Moderate Pasteurella multocida Resistance to quinolones, tetracyclines, trimethoprim sulfamethoxazole, and azithromycin has not been noted in Pasturella species and therefore, routine susceptibility testing is not performed. ??Some strains of Pasturella produce a beta-lactamase. (.) JESUSITA COLEMAN Comment:Testing performed by : [facility], [address] [facility] [place]., [address] Organism PASTEURELLA MULTOCIDA JESUSITA Drainage (Ear, left) 12/09/2022 9:31 AM CDT 12/10/2022 2:45 PM CDT Narrative JESUSITA - 12/13/2022 6:41 AM CDT AEROBIC AND ANAEROBIC Testing performed by [facility] Microbiology Laboratory ([phone]) Specimens submitted from normally sterile body sites will have all bacterial morphotypes identified. ??Specimens that contain grossly mixed mickey and/or are from body sites that are not normally sterile will be examined for Staphylococcus aureus, Pseudomonas aeruginosa, beta-hemolytic strep, vancomycin-resistant Enterococcus and fungus. ??If any of these are isolated, the organism will be reported. Current interpretive data was last revised on 2016. us Benjamín Delong II, MD LAB MICROBIOLOGY - GENERA L ORDERABLES Final Result [facility] [address] [facility] [place] [address] documented in this encounter Visit Diagnoses Diagnosis Chronic suppurative otitis media of left ear, unspecified otitis media location documented in this encounter Care Teams Supervisor Production Department Relationship Specialty Start Date End Date Franny Dolan PA [address] [place] [id number] PCP - General Physician Airport Sales Agent 11/22/22 documented as of this encounter
--- OUTSIDE RECORDS SUMMARY | 2024-06-23 15:26 | XMS_ITS | Encounter Summary ---
Author Organization [facility] Address [address] [place] [address] Phone Care Team Providers Care Decorating Machine Operator Name Role Phone Alex Browne MD Primary Care Provider [phone] Reason for Visit * Reason Onset Date Comments Discuss Test Results 09/03/2021 Cuture Encounter Details Date Type Department Care Team (Late st Contact Info) Description 09/03/2021 Telephone [facility] Otolaryngology [address] [place] [phone] Raina Wolff Discuss Test Results (Cuture) Social History Tobacco Use Types Packs/Day Years Used Date Smoking Tobacco: Former Cigarettes Q uit: 1998 Smokeless Tobacco: Never Comments Unknown Sex and Gender Information Value Date Recorded Sex Assigned at Not on file Legal Sex Female 12:44 PM CDT Gender Identity Not on file Sexual Orientation Not on file documented as of this encounter Ordered Prescriptions Prescription Sig Dispense Quantity Refills Last Filled Start Date End Date clindamycin (CLEOCIN) 300 mg capsuleIndications :Acute otitis media, left Take 1 capsule (300 mg total) by mouth 3 (three) times a day for 14 days 42 capsule 09/06/2021 2 documented in this encounter Miscellaneous Notes * Telephone Encounter - Raina Wolff - 09/06/2021 9:41 AM CDT A voicemail was left this morning with her results and the medication was sent to her pharmacy. * Telephone Encounter - Raina Wolff - 09/03/2021 1:07 PM CST A voicemail was left for Kristal to call us back for her results and recommendation. OON ENGAGEMENT PLANNING OPERATOR * Telephone Encounter - Raina Wolff - 09/03/2021 1:06 PM CST ----- Message from Benjamín Delong II, MD sent at 09/03/2021 11:45 AM HARPOON ENGAGEMENT PLANNING OPERATOR ----- Regarding: Test Results Please call the patient and inform them of the following test results and instructions: Her ear culture shows methicillin sensitive Staph aureus. She should be started on clindamycin 300 mg 3 times a day for 2 weeks. She should continue the Ciprodex drops during that time as well. OON ENGAGEMENT PLANNING OPERATOR documented in this encounter Plan of Treatment Not on file documented as of this encounter Visit Diagnoses Diagnosis Acute recurrent maxillary sinusitis- Primary Acute otitis media, left Unspecified otitis media documented in this encounter Care Teams Decorating Machine Operator Relationship Specialty Start Date End Date Alex Browne MD [address] [place] [address] PCP - General 10/11/18 11/21/22 documented as of this encounter
--- OUTSIDE RECORDS SUMMARY | 2024-06-23 15:26 | XMS_ITS | Encounter Summary ---
Author Organization [facility] Medical Group Address [address] [facility] [address] [place] [address] Care Team Providers Care Heavy Equipment Sales Manager Name Role Phone Alex Browne MD Primary Care Provider [phone] Reason for Visit * Reason Comments Follow-up Encounter Details Date Type Department Care Team (Late st Contact Info) Description 10/19/2020 9:45 AM CDT Office Visit [facility] Medical [facility] [address] [address] Emilee Escalante, COB SAWYER [address] [address] NIRANJAN (obstructive sleep apnea) (Primary Dx) Social History Tobacco Use Types [...] Sign Reading Time Taken Comments Blood Pressure 140/86 10/19/2020 9:41 AM CDT Pulse 65 10/19/2020 9:41 AM CDT Temperature 36.4 ??C (97.5 ??F) 10/19/2020 9:41 AM CD T Respiratory Rate 18 10/19/2020 9:41 AM CDT Oxygen Saturation 97% 10/19/2020 9:41 AM CDT Inhaled Oxygen Concentration - - Weight 123.8 kg (273 lb) 10/19/2020 9:41 AM CDT Height 162.6 cm (5' 4 ) 10/19/2020 9:41 AM CDT Body Mass Index 46.86 10/19/2020 9:41 AM CDT documented in this encounter Progress Notes * Emilee Escalante, COB SAWYER - 10/19/2020 9:45 AM CDT Images from the original note were not included. Patient ID: Kristal Bustos is a 65 y.o. female. HPI. Patient is a 65 y.o. female returns for follow-up of NIRANJAN. The patient continues to wear her CPAP at 15 cm of water pressure while sleeping. The patient states that her energy level is up and down. The patient does have some dry mouth in the morning. She denies headache or snoring under the mask. She does dream at night when she sleeps. Her compliance report shows an average use is 8 hours and 44 minutes per night on 100% nights, her AHI is 1.1. The patient is benefitting from CPAP therapy. Chief Complaint Patient presents with ??? Follow-up Current Medications: Outpatient Encounter Medications as of 10/19/2020 Medication Sig Dispense Refill ??? acetaminophen ER (TYLENOL) 650 mg 8 hr tablet Take 650 mg by mouth every 6 (six) hours as needed ??? aspirin 81 mg enteric coated tablet Take 81 mg by mouth daily ??? busPIRone (BUSPAR) 7.5 mg tablet ??? cetirizine (ZyrTEC) 10 mg tablet ??? DULoxetine DR (CYMBALTA) 30 mg capsule ??? fenofibrate micronized (LOFIBRA) 134 mg capsule ??? fluconazole (Diflucan) 150 mg tablet 1 tab po bid 2 tablet 0 ??? fluticasone propionate (FLONASE) 50 mcg/actuation nasal spray Administer 2 sprays into each nostril daily ??? glucosamine-chondroitin 500-400 mg tablet Take 1 tablet by mouth 3 (three) times a day ??? hydroCHLOROthiazide (HYDRODIURIL) 12.5 mg tablet ??? metFORMIN (GLUCOPHAGE) 500 mg tablet Take 500 mg by mouth daily ??? multivitamin capsule Take 1 capsule by mouth daily ??? nystatin-triamcinolone cream APPLY TO AFFECTED AREA TWICE A DAY NEEDED ??? Synthroid 88 mcg tablet ??? [DISCONTINUED] cyclobenzaprine (FLEXERIL) 10 mg tablet Take 10 mg by mouth daily ??? [DISCONTINUED] meclizine (ANTIVERT) 12.5 mg tablet Take 12.5 mg by mouth every 8 (eight) hours as needed No facility-administered encounter medications on file as of 10/19/2020. Review of Systems Constitutional: Negative for fever. HENT: Negative for tinnitus. Eyes: Negative for visual disturbance. Respiratory: Negative for cough, shortness of breath and wheezing. Cardiovascular: Negative for chest pain. Gastrointestinal: Negative for diarrhea, nausea and vomiting. Skin: Negative for rash. Neurological: Negative for dizziness. BP 140/86 Pulse 65 Temp 36.4 ??C (97.5 ??F) Resp 18 Ht 162.6 cm (5' 4 ) Wt 123.8 kg (273 lb) SpO2 97% BMI 46.86 kg/m?? Physical Exam Constitutional: General: She is not in acute distress. HENT: Mouth/Throat: Pharynx: No oropharyngeal exudate. Eyes: Pupils: Pupils are equal, round, and reactive to light. Cardiovascular: Rate and Rhythm: Normal rate and regular rhythm. Pulmonary: Effort: Pulmonary effort is normal. Breath sounds: Normal breath sounds. No wheezing. Abdominal: Palpations: Abdomen is soft. Musculoskeletal: Cervical back: Normal range of motion. Imaging: No results found. Assessment & Plan: Diagnoses and all orders for this visit: NIRANJAN (obstructive sleep apnea) (Primary) Assessment & Plan: Patient continue to wear her CPAP at 15 cm water pressure while sleeping. Her DME is [facility]. Return in about 1 year (around 10/19/2021). Emilee Escalante NP Cosigned by Eric Gonzalez MD at 10/19/2020 10:33 AM CDT documented in this encounter Miscellaneous Notes * Assessment & Plan Note - Emilee Escalante NP - 10/19/2020 10:05 AM CDT Associated Problem(s): NIRANJAN (obstructive sleep apnea) Patient continue to wear her CPAP at 15 cm water pressure while sleeping. Her DME is [facility]. documented in this encounter Plan of Treatment Not on file documented as of this encounter Visit Diagnoses Diagnosis NIRANJAN (obstructive sleep apnea)- Primary Obstructive sleep apnea (adult) (pediatric) documented in this encounter Discontinued Medications Medication Sig Discontinue Reason Start Date End Da te cyclobenzaprine (FLEXERIL) 10 mg tablet Take 10 mg by mouth daily Therapy completed 08/17/2020 10/19/2020 meclizine (ANTIVERT) 12.5 mg tablet Take 12.5 mg by mouth every 8 (eight) hours as needed Therapy completed 01/06/2020 10/19/2020 documented as of this encounter Historical Medications * This list may reflect changes made after this encounter. glucosamine-chond roitin 500-400 mg tablet Take 1 tablet by mouth 3 (three) times a day multivitamin capsule Take 1 capsule by mouth daily nystatin-triamcin olone cream APPLY TO AFFECTED AREA TWICE A DAY NEEDED 09/16/2020 busPIRone (BUSPAR) 7.5 mg tabletIndications :2 times per day 08/19/2020 acetaminophen ER (TYLENOL) 650 mg 8 hr tablet Take 1 tablet (650 mg total) by mouth every 6 (six) hours as needed added in this encounter Care Teams Heavy Equipment Sales Manager Relationship Specialty Start Date End Date Alex Browne MD [address] [place] [address] PCP - General 10/11/18 11/21/22 documented as of this encounter
--- OUTSIDE RECORDS SUMMARY | 2024-06-23 15:26 | XMS_ITS | Encounter Summary ---
Author Organization [facility] Address [address] [place] [address] Phone Care Team Providers Care Subway Guard Name Role Phone Franny Dolan Primary Care Provider Encounter Details Date Type Department Care Team (Late st Contact Info) Description 01/02/2023 Telephone [facility] Otolaryngology [address] [place] [phone] Raina Wolff Social History Tobacco Use Types Packs/Day Years [...] * Telephone Encounter - Raina Wolff - 01/02/2023 12:43 PM CDT A user error has taken place: encounter opened in error, closed for administrative reasons. documented in this encounter Plan of Treatment Not on file documented as of this encounter Visit Diagnoses Not on filedocumented in this encounter Care Teams Subway Guard Relationship Specialty Start Date End Date Franny Dolan PA [address] [place] [address] PCP - General Physician Secondary Teacher 11/22/22 documented as of this encounter
--- OUTSIDE RECORDS SUMMARY | 2024-06-23 15:26 | XMS_ITS | Encounter Summary ---
Author Organization [facility] Healthcare Address [address] [place] [address] Care Team Providers Care Dye Range Feeder Name Role Phone Franny Dolan Primary Care Provider [phone] Encounter Details Date Type Department Care Team (Late st Contact Info) Description 10/16/2023 Telephone [facility] Medical Group Pulmonology [address] [facility] [address] [place] [address] Radha Stanton, SNOW REMOVER [address] [place] [address] [address] [place] [address] Social History Tobacco Use Types Packs/Day Years Used Date Smoking Tobacco: Former Cigarettes Q uit: 1998 Smokeless Tobacco: Never Comments Unknown Sex and Gender Information Value Date Recorded Sex Assigned at Not on file Legal Sex Female 12:44 PM CDT Gender Identity Not on file Sexual Orientation Not on file documented as of this encounter Miscellaneous Notes * Telephone Encounter - Krystyna Brown MA - 10/16/2023 2:47 PM CDT Patient's called to give an FYI that she would not be able to wear her Cpap for another week because she has broken her nose. documented in this encounter Plan of Treatment Not on file documented as of this encounter Visit Diagnoses Not on filedocumented in this encounter Care Teams Dye Range Feeder Relationship Specialty Start Date End Date Franny Dolan PA [address] [place] [address], [place] [address] PCP - General Physician Sand Mixer Machine 11/22/22 documented as of this encounter
--- OUTSIDE RECORDS SUMMARY | 2024-06-23 15:26 | XMS_ITS | Encounter Summary ---
Author Organization [facility] Address [address] [facility] [address] [place] [address] Care Team Providers Care Foreign Broadcast Specialist Name Role Phone Alex Browne MD Primary Care Provider [phone] Reason for Visit * Reason Comments Trigger Finger Follow-up Pain Follow-up Test Results Encounter Details Date Type Department Care Team (Late st Contact Info) Description 09/24/2020 9:15 AM CDT Office Visit [facility] Hand Surgery [facility] [address] [place] [id number] Vandana Cheung MD [address] [place] [address] Trigger middle finger of left hand (Primary Dx) Social History Tobacco Use Types Packs/Day Years Used Date Smoking Tobacco: Former Cigarettes Q uit: 1998 Smokeless Tobacco: Never Comments Unknown Sex and Gender Information Value Date Recorded Sex Assigned at Not on file Legal Sex Female 12:44 PM CDT Gender Identity Not on file Sexual Orientation Not on file documented as of this encounter Progress Notes * Vandana Cheung MD - 09/24/2020 9:15 AM CDT Images from the original note were not included. FOLLOW UP VISIT Subjective CHIEF COMPLAINT She had no chief complaint listed for this encounter. HISTORY OF PRESENT ILLNESS The patient is a 65-year-old left-hand dominant female who presents today for follow-up of numbnessand tingling into the left hand as well as left middle trigger finger. Since her last visit on 08/21/2020 where she underwent a left middle trigger finger injection, she has noted 100% relief of the triggering in this digit. She no longer has pain in her left middle finger. The numbness and tingling which she had in her left hand she notes has improved since she changed the position of where she sits on her couch to face her TV. She does note some neck soreness and occasional tingling in the index and middle fingers on the left hand. MEDICATIONS She has a current medication list which includes the following prescription(s): aspirin, cetirizine, cyclobenzaprine, duloxetine dr, fenofibrate micronized, fluconazole, fluticasone propionate, hydrochlorothiazide, meclizine, metformin, and synthroid. REVIEW OF SYSTEMS Constitutional: Negative for fever and chills. HENT: Negative for neck pain. Eyes: Negative for change in vision. Respiratory: Negative for cough and shortness of breath. Cardiovascular: Negative for chest pain or pressure. Hematologic: negative for easy bruising Musculoskeletal: Negative for muscle and joint pain GI: negative for constipation Integumentary: negative for skin wound or rash Neurologic: negative for paresthesias Objective PHYSICAL EXAM There were no vitals taken for this visit. General: ??Well appearing in no acute distress Chest: ??Normal work of breathing HEENT: Normocephalic, atraumatic Neuro: alert and oriented to person, place and time Focused exam of the upper extremities. ??Hands are symmetric in appearance. There are previous well-healed incisions at the bilateral wrists. ??There is??5/5 apb strength?? bilaterally ??and 5/5 abduction strength bilaterally. There is a negative Froment's and Wartenberg signs??bilaterally. ??Thereis no evidence of interossei atrophy.?There??is no thenar atrophy??bilaterally. ??Radial pulses are 2+ and equal bilaterally. ??The fingers are warm and well perfused.?She??is able to make a full fist and touch the fingertips down to the palm. ??Sensation is intact to light touch along the radial distribution.?She has decreased sensation to light touch in the median nerve and ulnar nerve distributions. Her 2 point discrimination is intact to 5 mm on all digits. ?She??has a negative??Tinel's and a positive Durkan sign at the wrist??on the left.?She has a negativeTinel's and elbow compression test bilaterally. There is no ulnar nerve subluxation with range of motion of the elb ow. There is no tenderness to palpation over the A1 jhonatan of the left middle finger. There is no triggering on exam today. There is a palpable nodule at the left middle finger A1 jhonatan. REVIEW OF X-RAYS/STUDIES/LABS Nerve conduction study and EMG dated demonstrates no abnormality of the median, radial, or ulnar nerves. Assessment/Plan There are no diagnoses linked to this encounter. PLAN This is a 65-year-old left-hand dominant female who presents today for follow-up of numbness and tingling into the left index and middle finger as well as left middle trigger finger. I again reviewed the relevant anatomy and the diagnosis of trigger finger. At this point it seems that her trigger finger has completely resolved with 1 corticosteroid injection. We discussed that the trigger finger may never return or may return at some point in the future. I discussed with the patient that should return she should return to see me for repeat evaluation and to discuss her options at that point. With regard to the numbness and tingling in her left hand, I discussed with the patient that her EMG is normal and there is no sign of distal neuropathy of the median or ulnar nerves consistent with either cubital or carpal tunnel syndromes. I did discuss with the patient that parest hesias in the hands can come from multiple etiologies including metabolic abnormalities or even radiculopathy. Should she continue to have numbness and tingling in the hands I recommend that her primary care physician work her up for other etiologies. She can return to see me on an as-needed basis. Vandana Cheung MD documented in this encounter Plan of Treatment Not on file documented as of this encounter Visit Diagnoses Diagnosis Trigger middle finger of left hand- Primary documented in this encounter Care Teams Foreign Broadcast Specialist Relationship Specialty Start Date End Date Alex Browne MD [address] [place] [address] PCP - General 10/11/18 11/21/22 documented as of this encounter
--- OUTSIDE RECORDS SUMMARY | 2024-06-23 15:26 | XMS_ITS | Encounter Summary ---
Author Organization [facility] Medical Group Address [address] [facility] [address] [place] [address] Care Team Providers Care Centrifugal Machine Tender Name Role Phone Alex Browne MD Primary Care Provider [phone] Encounter Details Date Type Department Care Team (Late st Contact Info) Description 08/16/2022 11:00 AM SURG TECH Office Visit [facility] Medical [facility] Pulmonary [place] [id number] [facility] [address] [place] [address] Emilee Escalante, RN ADMISSION [address] [facility] [address] [address] NIRANJAN (obstructive sleep apnea) (Primary Dx); Acute cough Social History Tobacco Use Types Packs/Day [...] Sign Reading Time Taken Comments Blood Pressure 158/72 08/16/2022 10:51 AM SURG TECH Pulse 71 08/16/2022 10:51 AM SURG TECH Temperature 36.4 ??C (97.6 ??F) 08/16/2022 10:[address] Respiratory Rate 18 08/16/2022 10:51 AM SURG TECH Oxygen Saturation 95% 08/16/2022 10:51 AM SURG TECH Inhaled Oxygen Concentration - - Weight 126.1 kg (278 lb) 08/16/2022 10:51 AM SURG TECH Height 162.6 cm (5' 4 ) 08/16/2022 10:51 AM SURG TECH Body Mass Index 47.72 08/16/2022 10:51 AM SURG TECH documented in this encounter Progress Notes * Emilee Escalante, RN ADMISSION - 08/16/2022 11:00 AM CST Images from the original note were not included. Patient ID: Kristal Bustos is a 67 y.o. female. HPI. Patient is a 67 y.o. female returns for follow-up of NIRANJAN. Patient continues to wear her CPAP at 17 cm water pressure while sleeping. The patient states that the increase in pressure does feel better. The patient did have an increase in pressure due to having an elevated hematocrit and hemoglobin. The patient did have a normal hematocrit hemoglobin in August of last year after the pressure was raised. The patient states that her energy level is doing good. The patient denies headaches in themorning. She will occasionally have a dry mouth. The patient rarely snores with the mask on. She isdreaming at night when she sleeps. Her compliance report shows an average use is 8 hours 42 minutesper night on 90% nights, her AHI is 1.1. The patient is benefitting from CPAP therapy. The patient states that she does have a cough. The patient states cough is worse at night. She currently denies any postnasal drip or gastric reflux. No chief complaint on file. Current Medications: Outpatient Encounter Medications as of 08/16/2022 Medication Sig Dispense Refill acetaminophen ER (TYLENOL) 650 mg 8 hr tablet Take 650 mg by mouth every 6 (six) hours as needed aspirin 81 mg enteric coated tablet Take 81 mg by mouth daily busPIRone (BUSPAR) 7.5 mg tablet cetirizine (ZyrTEC) 10 mg tablet cyclobenzaprine (FLEXERIL) 10 mg tablet Take 10 mg by mouth DULoxetine DR (CYMBALTA) 30 mg capsule fenofibrate micronized (LOFIBRA) 134 mg capsule fluticasone propionate (FLONASE) 50 mcg/actuation nasal spray Administer 2 sprays into each nostrildaily glucosamine-chondroitin 500-400 mg tablet Take 1 tablet by mouth 3 (three) times a day hydroCHLOROthiazide (HYDRODIURIL) 12.5 mg tablet metFORMIN (GLUCOPHAGE) 500 mg tablet Take 500 mg by mouth daily multivitamin capsule Take 1 capsule by mouth daily kcrenvtx-pfuomlees-TJ (CORTISPORIN) 3.5-10,000-1 mg/mL-unit/mL-% otic suspension Administer 3 dropsinto the left ear 3 (three) times a day 10 mL 0 nystatin powder Apply topically 3 (three) times a day nystatin-triamcinolone cream APPLY TO AFFECTED AREA TWICE A DAY NEEDED Synthroid 88 mcg tablet No facility-administered encounter medications on file as of 08/16/2022. Review of Systems Constitutional: Negative for fever. HENT: Negative for tinnitus. Eyes: Negative for visual disturbance. Respiratory: Negative for cough, shortness of breath and wheezing. Cardiovascular: Negative for chest pain. Gastrointestinal: Negative for diarrhea, nausea and vomiting. Skin: Negative for rash. Neurological: Negative for dizziness. BP 158/72 Pulse 71 Temp 36.4 ??C (97.6 ??F) Resp 18 Ht 162.6 cm (5' 4 ) Wt 126.1 kg (278 lb) SpO2 95% BMI 47.72 kg/m?? Physical Exam Constitutional: General: She is [...] Assessment & Plan: Patient continue to wear CPAP at 17 cm water pressure while sleeping. Her DME is [facility]. Acute cough Assessment & Plan: The patient is going to see her primary physician regarding the cough. I did inform the patient that if she needs pulmonary function test and a chest x-ray to call back in. Return in about 1 year (around 08/16/2023). Emilee Escalante NP Cosigned by Eric Gonzalez MD at 08/16/2022 4:07 PM SURG TECH TECH TECH documented in this encounter Miscellaneous Notes * Assessment & Plan Note - Emilee Escalante NP - 08/16/2022 11:53 AM SURG TECH Associated Problem(s): Acute cough The patient is going to see her primary physician regarding the cough. I did inform the patient that if she needs pulmonary function test and a chest x-ray to call back in. TECH * Assessment & Plan Note - Emilee Escalante NP - 08/16/2022 11:53 AM SURG TECH Associated Problem(s): NIRANJAN (obstructive sleep apnea) Patient continue to wear CPAP at 17 cm water pressure while sleeping. Her DME is [facility]. TECH documented in this encounter Plan of Treatment Not on file documented as of this encounter Visit Diagnoses Diagnosis NIRANJAN (obstructive sleep apnea)- Primary Obstructive sleep apnea (adult) (pediatric) Acute cough documented in this encounter Care Teams Centrifugal Machine Tender Relationship Specialty Start Date End Date Alex Browne MD [address] [place] [id number] PCP - General 10/11/18 11/21/22 documented as of this encounter
--- OUTSIDE RECORDS SUMMARY | 2024-06-23 15:26 | XMS_ITS | Encounter Summary ---
Author Organization [facility] Address [address] [place] [address] Phone Care Team Providers Care Machine Coremaker Name Role Phone Alex Browne MD Primary Care Provider [phone] Reason for Visit * Reason Comments Otitis Media Left ear Encounter Details Date Type Department Care Team (Late st Contact Info) Description 08/30/2021 3:00 PM FUR STRETCHER Office Visit [facility] Otolaryngology [address] [place] [phone] Benjamín Delong II, MD [address] [place] [address] Acute otitis media, left (Primary Dx); [...] - Temperature - - Respiratory Rate 17 08/30/2021 2:55 PM FUR STRETCHER Oxygen Saturation - - Inhaled Oxygen Concentration - - Weight 121.1 kg (267 lb) 08/30/2021 2:55 PM FUR STRETCHER Height 162.6 cm (5' 4 ) 08/30/2021 2:55 PM FUR STRETCHER Body Mass Index 45.83 08/30/2021 2:55 PM FUR STRETCHER documented in this encounter Ordered Prescriptions Prescription Sig Dispense Quantity Refills Last Filled Start Date End Date ciprofloxacin-dexA METHasone (CIPRODEX) otic suspensionIndicati ons:Acute otitis media, left Administer 3 drops into the left ear 2 (two) times a day for 14 days 7.5 mL 08/30/2021 2 documented in this encounter Progress Notes * Benjamín Delong II, MD - 08/30/2021 3:00 PM CST Established Patient Report 08/30/2021 Patient: Kristal Bustos : 1955 Diagnosis: Problem List Items Addressed This Visit ENT Dysfunction of left eustachian tube Acute otitis media, left - Primary Relevant Medications ciprofloxacin-dexAMETHasone (CIPRODEX) otic suspension Other Relevant Orders Ear culture Swab Ear, left Interval History: Kristal Bustos returns for an established patient visit. She was seen today for evaluation of her ears. She has a history of ear problems and has required ear tubes in the past. At her last visit she still had a T-tube in place in the left ear. Now in the past month she has had some drainage from the left side. This has been giving her some difficulty. She has not had any medications for it. She did have a course of Augmentin early on but has not been on any medicines recently. The right earis not giving her problems. Her hearing is stable but does feel somewhat clogged on the left. Review of systems otherwise unchanged. Interval Physical [...] Ear canal is patent without mass lesions. There is mild patchy tympanosclerosis. Otherwise tympanic membrane looks normal Left Ear: Normal pinna and appearance of external ear. Ear canal is patent without mass lesions. T-Tube is in place in the inferior aspect of the eardrum. There is mucopurulent drainage in the regionand coming through the ear tube. Culture of this was taken. The mucus and debris was suctioned clean Nasal Exam: External nose has no masses [...] No retractions. Procedures: None Medication(s) Ordered ??? ciprofloxacin-dexAMETHasone (CIPRODEX) otic suspension Sig: Administer 3 drops into the left ear 2 (two) times a day for 14 days Dispense: 7.5 mL Refill: 0 Orders Placed This Encounter Procedures ??? Ear culture Swab Ear, left Standing Status: Future Number of Occurrences: 1 Standing Expiration Date: 08/30/2022 Assessment and Plan: This is a 66 y.o.-year-old female with chronic eustachian tube dysfunction. She has an ear tube in place in the left side. Today she has an acute otitis media. Culture of that was taken. I started her on Ciprodex drops. We will likely need to add an oral antibiotic once the results of her culture is back. She will follow up in a few weeks to make sure that the infection resolves Patient is at moderate level medical decision making as she has an acute exacerbation of a chronic problem that required prescription drug management. She is at moderate risk of continued morbidity Benjamín Delong II, M.D. This note was generated with voice recognition software and small grammatical errors may be encountered. STRETCHER documented in this encounter Plan of Treatment Scheduled Orders Name Type Priority Associated Diagnoses Orde r Schedule Ear culture Swab Ear, left Microbiology Routine Acute otitis media, left Expected: 08/30/2021, Expires: 08/30/2022 documented as of this encounter Visit Diagnoses Diagnosis Acute otitis media, left- Primary Unspecified otitis media Dysfunction of left eustachian tube documented in this encounter Historical Medications * This list may reflect changes made after this encounter. nystatin powder Apply topically 3 (three) times a day 03/22/2021 docusate sodium (COLACE) 100 mg capsule 06/03/2021 2 cyclobenzaprine (FLEXERIL) 10 mg tablet Take 10 mg by mouth 3 added in this encounter Care Teams Machine Coremaker Relationship Specialty Start Date End Date Alex Browne MD [address] [place] [address] PCP - General 10/11/18 11/21/22 documented as of this encounter
--- OUTSIDE RECORDS SUMMARY | 2024-06-23 15:26 | XMS_ITS | Encounter Summary ---
Author Organization [facility] Address [address] [place] [address] Care Team Providers Care Inspector And Hand Packager Name Role Phone Alex Browne MD Primary Care Provider [phone]- [phone] Reason for Referral * Diagnostic Imaging (Routine) - Closed Specialty Diagnoses / Procedures Referred By Michelle lozano Referred To Contact Diagnoses Bilateral hand pain Procedures XR Hand Right 3+ Vw Vandana Cheung MD Phone: tel: fax: [address] [address] Referral ID Status Reason Start Date Expiration Date Visits Re quested Visits Authorized [id number] Closed 08/20/2020 09/19/2021 1 1 CTIONAL DRILLER * Diagnostic Imaging (Routine) - Closed Specialty Diagnoses / Procedures Referred By Michelle lozano Referred To Contact Diagnoses Bilateral hand pain Procedures XR Hand Left 3+ Vw Vandana Cheung MD Phone: tel: fax: [address] [phone] Referral ID Status Reason Start Date Expiration Date Visits Re quested Visits Authorized [id number] Closed 08/20/2020 09/19/2021 1 1 CTIONAL DRILLER Encounter Details Date Type Department Care Team (Late st Contact Info) Description 08/21/2020 9:50 AM DIRECTIONAL DRILLER Hospital Encounter [facility] INTERIM Vandana Cheung MD [address] [place] [address] Bilateral hand pain Social History Tobacco Use Types Packs/Day Years Used Date Smoking Tobacco: Former Cigarettes Q uit: 1998 Smokeless Tobacco: Never Comments Unknown Sex and Gender Information Value Date Recorded Sex Assigned at Not on file Legal Sex Female 12:44 PM CDT Gender Identity Not on file Sexual Orientation Not on file documented as of this encounter Medications at Time of Discharge aspirin 81 mg enteric coated tablet Take 1 tablet (81 mg total) by mouth daily busPIRone (BUSPAR) 7.5 mg tabletIndication s:2 times per day 08/19/2020 cetirizine (ZyrTEC) 10 mg tablet 01/30/[address] (CYMBALTA) 30 mg capsule 02/16/2020 fenofibrate micronized (LOFIBRA) 134 mg capsule 01/13/2020 fluticasone propionate (FLONASE) 50 mcg/actuation nasal spray Administer 2 sprays into each nostril daily hydroCHLOROthiaz sveta (HYDRODIURIL) 12.5 mg tablet 12/12/2019 metFORMIN (GLUCOPHAGE) 500 mg tabletIndication s:two times per day Take 1 tablet (500 mg total) by mouth daily 01/23/2020 Synthroid 88 mcg tabletIndication s:100 mg- per patient 11/22/2019 cyclobenzaprine (FLEXERIL) 10 mg tablet Take 10 mg by mouth daily 08/17/2020 1 fluconazole (Diflucan) 150 mg tabletIndication s:Acute recurrent maxillary sinusitis 1 tab po bid 2 tablet 03/06/2020 2 meclizine (ANTIVERT) 12.5 mg tablet Take 12.5 mg by mouth every 8 (eight) hours as needed 01/06/2020 1 documented as of this encounter Plan of Treatment Not on file documented as of this encounter Procedures Procedure Name Priority Date/Time Associated Diagnosis Comments XR HAND RIGHT 3 OR MORE VIEWS Schedule Routine, Read Routine (OP Routine) 08/21/2020 9:53 AM DIRECTIONAL DRILLER Bilateral hand pain XR HAND LEFT 3 OR MORE VIEWS Schedule Routine, Read Routine (OP Routine) 08/21/2020 9:53 AM DIRECTIONAL DRILLER Bilateral hand pain documented in this encounter Results * XR Hand Right 3+ Vw (08/21/2020 9:53 AM DIRECTIONAL DRILLER) Anatomical Region Laterality Modality Upper Extremities, Hand Right Radiogra phic Imaging 08/22/2020 7:35 AM DIRECTIONAL DRILLER Narrative 08/22/2020 7:38 AM DIRECTIONAL DRILLER Patient Name: ALICIA BOYCE ?Ordering Dr: Vandana Cheung MD ?? D.O.B: 1955 ? Exam Date: 08/21/20 ?? 0953 ?? Age: 65 ?Sex: Female ? MR#: [id number] ?? Loc: ? RADIOLOGY REPORT ?? Order #[id number] ?? Radiology ? Hand Right 3 View Min ? Signed ?? EXAM DESCRIPTION: ? 1. ??Hand Left 3 View Min; Hand Right 3 View Min ? REASON FOR STUDY: ??General hand pain/numbness/tingling for 4 months, no injury ? TECHNIQUE: ??Three views each hand submitted without comparison. ? FINDINGS: ? Right hand: ? Changes of ulnocarpal impaction are present. ??There are no other erosions. ? There is moderate basal thumb, mild 1st and 3rd metacarpophalangeal, and ?? polyarticular interphalangeal joint osteoarthritis. ??There is no dorsal wrist ?? soft tissue swelling. ? Left hand: ? Changes of ulnocarpal impaction are present. ??There are no erosions. ??There is ?? mild triscaphe and moderate basal thumb joint osteoarthritis. ??There is ?? polyarticular interphalangeal joint osteoarthritis. ??There is no dorsal wrist ?? soft tissue swelling. ? IMPRESSION: ? 1. ??No radiographic evidence of inflammatory arthritis. ? 2. ??Changes of bilateral ulnocarpal impaction. ? 3. ??Polyarticular bilateral hand and wrist osteoarthritis, most severe ?? involving the basal thumb joints. ? THIS IS AN ELECTRONICALLY VERIFIED FINAL REPORT ?? 08/22/2020 7:38 AM - Electronically signed by Jayesh Hoffmann ?? Jayseh Hoffmann ? MF ?? D: ??08/22/2020 7:38 AM ?? T: ? Report ID: [id number] ?? Reading Location: ??[id number] ? REPORT ELECTRONICALLY SIGNED IN OTHER VENDOR SYSTEM ?? Resulting Agency Comment O Procedure Note Jayesh Hoffmann MD - 08/22/2020 Patient Name: LEONARDGIOALICIA Dr: Vandana Cheung MD D.O.B: 1955 Exam Date: 08/21/20952 Age: 65 Sex: Female MR#: [id number] Loc: RADIOLOGY REPORT Order #[id number] Radiology Hand Right 3 View Min Signed EXAM DESCRIPTION: 1. Hand Left 3 View Min; Hand Right 3 View Min REASON FOR STUDY: General hand pain/numbness/tingling for 4 months, noinjury TECHNIQUE: Three views each hand submitted without comparison. FINDINGS: Right hand: Changes of ulnocarpal impaction are present. There are no othererosions. There is moderate basal thumb, mild 1st and 3rd metacarpophalangeal, and polyarticular interphalangeal joint osteoarthritis. There is no dorsalwrist soft tissue swelling. Left hand: Changes of ulnocarpal impaction are present. There are no erosions.There is mild triscaphe and moderate basal thumb joint osteoarthritis. There is polyarticular interphalangeal joint osteoarthritis. There is no dorsalwrist soft tissue swelling. IMPRESSION: 1. No radiographic evidence of inflammatory arthritis. 2. Changes of bilateral ulnocarpal impaction. 3. Polyarticular bilateral hand and wrist osteoarthritis, most severe involving the basal thumb joints. THIS IS AN ELECTRONICALLY VERIFIED FINAL REPORT 08/22/2020 7:38 AM - Electronically signed by Jayesh Hoffmann T: Report ID: [id number] Reading Location: [place] [address] REPORT ELECTRONICALLY SIGNED IN OTHER VENDOR SYSTEM us Vandana Cheung MD IMG XR PROCEDURES Final R esult * XR Hand Left 3+ Vw (08/21/2020 9:53 AM DIRECTIONAL DRILLER) Anatomical Region Laterality Modality Upper Extremities, Hand Left [facility] 08/22/2020 7:35 AM DIRECTIONAL DRILLER Narrative 08/22/2020 7:38 AM DIRECTIONAL DRILLER Patient Name: ALICIA BOYCE ?Ordering Dr: Vandana Cheung MD ?? D.O.B: 1955 ? Exam Date: 08/21/20 ?? 0953 ?? Age: 65 ?Sex: Female ? MR#: [id number] ?? Loc: ? RADIOLOGY REPORT ?? Order #[id number] ?? Radiology ? Hand Left 3 View Min ? Signed ?? EXAM DESCRIPTION: ? 1. ??Hand Left 3 View Min; Hand Right 3 View Min ? REASON FOR STUDY: ??General hand pain/numbness/tingling for 4 months, no injury ? TECHNIQUE: ??Three views each hand submitted without comparison. ? FINDINGS: ? Right hand: ? Changes of ulnocarpal impaction are present. ??There are no other erosions. ? There is moderate basal thumb, mild 1st and 3rd metacarpophalangeal, and ?? polyarticular interphalangeal joint osteoarthritis. ??There is no dorsal wrist ?? soft tissue swelling. ? Left hand: ? Changes of ulnocarpal impaction are present. ??There are no erosions. ??There is ?? mild triscaphe and moderate basal thumb joint osteoarthritis. ??There is ?? polyarticular interphalangeal joint osteoarthritis. ??There is no dorsal wrist ?? soft tissue swelling. ? IMPRESSION: ? 1. ??No radiographic evidence of inflammatory arthritis. ? 2. ??Changes of bilateral ulnocarpal impaction. ? 3. ??Polyarticular bilateral hand and wrist osteoarthritis, most severe ?? involving the basal thumb joints. ? THIS IS AN ELECTRONICALLY VERIFIED FINAL REPORT ?? 08/22/2020 7:38 AM - Electronically signed by Jayesh Hoffmann ?? Jayesh Hoffmann ? MF ?? D: ??08/22/2020 7:38 AM ?? T: ? Report ID: [id number] ?? Reading Location: ??[id number] ? REPORT ELECTRONICALLY SIGNED IN OTHER VENDOR SYSTEM ?? Resulting Agency Comment O Procedure Note Jayesh Hoffmann MD - 08/22/2020 Patient Name: ALICIA BOYCEsunnihma Dr: Vandana Cheung MD D.O.B: 1955 Exam Date: 08/21/20952 Age: 65 Sex: Female MR#: [id number] Loc: RADIOLOGY REPORT Order #[id number] Radiology Hand Left 3 View Min Signed EXAM DESCRIPTION: 1. Hand Left 3 View Min; Hand Right 3 View Min REASON FOR STUDY: General hand pain/numbness/tingling for 4 months, noinjury TECHNIQUE: Three views each hand submitted without comparison. FINDINGS: Right hand: Changes of ulnocarpal impaction are present. There are no othererosions. There is moderate basal thumb, mild 1st and 3rd metacarpophalangeal, and polyarticular interphalangeal joint osteoarthritis. There is no dorsalwrist soft tissue swelling. Left hand: Changes of ulnocarpal impaction are present. There are no erosions.There is mild triscaphe and moderate basal thumb joint osteoarthritis. There is polyarticular interphalangeal joint osteoarthritis. There is no dorsalwrist soft tissue swelling. IMPRESSION: 1. No radiographic evidence of inflammatory arthritis. 2. Changes of bilateral ulnocarpal impaction. 3. Polyarticular bilateral hand and wrist osteoarthritis, most severe involving the basal thumb joints. THIS IS AN ELECTRONICALLY VERIFIED FINAL REPORT 08/22/2020 7:38 AM - Electronically signed by Jayesh BRUMFIELD T: Report ID: [id number] Reading Location: [place] [address] REPORT ELECTRONICALLY SIGNED IN OTHER VENDOR SYSTEM Vandana Cheung MD IMG XR PROCEDURES Final R esult documented in this encounter Visit Diagnoses Diagnosis Bilateral hand pain documented in this encounter Care Teams Inspector And Hand Packager Relationship Specialty Start Date End Date Alex Browne MD [address] [place] [address] PCP - General 10/11/18 11/21/22 documented as of this encounter
--- OUTSIDE RECORDS SUMMARY | 2024-06-23 15:26 | XMS_ITS | Encounter Summary ---
Author Organization [facility] Address [address] [place] [address] Phone Care Team Providers Care Sample Tailor Name Role Phone Franny Dolan Primary Care Provider [phone] Reason for Visit * Reason Onset Date Comments Test Results 12/12/2022 Culture Encounter Details Date Type Department Care Team (Late st Contact Info) Description 12/12/2022 Telephone [facility] Otolaryngology [address] [place] [address] Benjamín Delong II, MD [address] [place] [address] Test Results (Culture) Social History Tobacco Use Types Packs/Day Years [...] Filled Start Date End Date sulfamethoxazole-t rimethoprim (BACTRIM DS) 800-160 mg per tabletIndications: Chronic suppurative otitis media of left ear, unspecified otitis media location 1 bid x 10 days 20 tablet 12/12/2022 fluconazole (Diflucan) 150 mg tabletIndications: Antibiotic-induced yeast infection Take 1 tablet (150 mg total) by mouth once for 1 dose 1 tablet 12/12/2022 12/12/2022 documented in this encounter Miscellaneous Notes * Telephone Encounter - New Raina - 12/12/2022 9:27 AM CDT Kristal was made aware and understand. * Telephone Encounter - corneliusjessica Raina - 12/12/2022 9:25 AM CDT ----- Message from Benjamín Delong II, MD sent at 12/12/2022 8:45 AM CDT ----- Please call the patient regarding her test results. Let her know that the culture shows a bacteria that should be killed by Bactrim and therefore we are going to start her on that for 10 days. She should continue her ear drops for 10 days as well Bactrim-DS 1 tab orally twice daily for 10 days documented in this encounter Plan of Treatment Not on file documented as of this encounter Visit Diagnoses Diagnosis Chronic suppurative otitis media of left ear, unspecified otitis media location- Primary Antibiotic-induced yeast infection documented in this encounter Care Teams Sample Tailor Relationship Specialty Start Date End Date rFanny Dolan PA [address] [place] [address] PCP - General Physician Relief Operator 11/22/22 documented as of this encounter
--- OUTSIDE RECORDS SUMMARY | 2024-06-23 15:26 | XMS_ITS | Encounter Summary ---
Author Organization [facility] Address [address] [place] [address] Care Team Providers Care Horser Up Name Role Phone Alex Browne MD Primary Care Provider [phone] Encounter Details Date Type Department Care Team (Late st Contact Info) Description 09/15/2020 12:02 PM CDT Hospital Encounter [facility] OP INTERIM Vandana Cheung MD [address] [facility] [address] [address] Social History Tobacco Use Types Packs/Day Years [...] cetirizine (ZyrTEC) 10 mg tablet 01/30/2020 DULoxetine (CYMBALTA) 30 mg capsule 02/16/2020 fenofibrate micronized [...] Procedure Name Priority Date/Time Associated Diagnosis Comments SCAN - NEUROLOGY 09/16/2020 12:0 0 AM CDT documented in this encounter Results * SCAN - NEUROLOGY (09/16/2020 12:00 AM CDT) Anatomical Region Laterality Modality Other Narrative 09/16/2020 12:00 AM CDT Ordered by an unspecified provider. us Historical Provider MD Final Res ult documented in this encounter Visit Diagnoses Not on filedocumented in this encounter Care Teams Horser Up Relationship Specialty Start Date End Date Alex Browne MD [address] [place] [address] PCP - General 10/11/18 11/21/22 documented as of this encounter
--- OUTSIDE RECORDS SUMMARY | 2024-06-23 15:26 | XMS_ITS | Encounter Summary ---
Author Organization [facility] Address [address] [facility] [address] [place] [id number] Care Team Providers Care Ballistic Technician Name Role Phone Alex Browne MD Primary Care Provider [phone]- [phone] Encounter Details Date Type Department Care Team (Late st Contact Info) Description 08/10/2021 11:15 AM AUDIO VIDEO REPAIRER Office Visit [facility] Pulmonology [facility] Sleep [facility] [address] [phone] Radha Stanton, LEGAL BILLING COORDINATOR [address] [facility] [address] [address] NIRANJAN (obstructive sleep apnea) (Primary [...] Sign Reading Time Taken Comments Blood Pressure 142/80 08/10/2021 11:05 AM AUDIO VIDEO REPAIRER Pulse 74 08/10/2021 11:05 AM AUDIO VIDEO REPAIRER Temperature 36.9 ??C (98.4 ??F) 08/10/2021 11:[address] Respiratory Rate 18 08/10/2021 11:05 AM AUDIO VIDEO REPAIRER Oxygen Saturation 95% 08/10/2021 11:05 AM AUDIO VIDEO REPAIRER Inhaled Oxygen Concentration - - Weight 120.2 kg (265 lb) 08/10/2021 11:05 AM AUDIO VIDEO REPAIRER Height - - Body Mass Index 45.49 10/19/2020 9:41 AM CDT documented in this encounter Progress Notes * Radha Stanton, LEGAL BILLING COORDINATOR - 08/10/2021 11:15 AM CST Images from the original note were not included. Progress Note Patient: Kristal Bustos ( - 1955) is a 66 y.o. female. Visit Date: 08/10/2021 No chief complaint on file. History of Present Illness: This is a follow-up for obstructive sleep apnea. The patient continue CPAP therapy at 15 cm water pressure. The patient states that she does dream and occasionally snore under the mask. The patient states that she does have daytime fatigue post to surgery and COVID-19 in June 2021. Patient denies falling asleep during activities. Patient states occasionally she does have dry mouth and her energy level is good. 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 The patient states that the oncologist would like her CPAP machine turned up due to an increase of red blood cells on her last CBC. The overall compliance report from May 06 to August 03, 2021 shows an average use of 10 hours on 99% of the nights, AHI 1.2. These results were explained to the patient. The patient is benefitting from CPAP therapy Past Medical History: Past Medical History: Diagnosis Date ??? Allergic rhinitis ??? Anxiety ??? Arthritis neck ??? Cataract ??? Depression ??? Diabetes (HCC) ??? Endometriosis ??? Hypertension ??? Lichen sclerosus et atrophicus Lichen sclerosus - (Added by TW Conv) ??? Sinusitis ??? Thyroid disease Surgical History: Past Surgical History: Procedure Laterality Date ??? MYRINGOTOMY W/ TUBES ??? KS LAP,SLING OPERATION Laparoscopic Sling Operation For Stress Incontinence - (Added by TW Conv) ??? KS REMOVAL GALLBLADDER Cholecystectomy - (Added by TW Conv) ? ? KS REMOVAL OF TONSILS,<12 Y/O Tonsillectomy - (Added by TW Conv) ??? KS REMOVE UTERUS AFTER Hysterectomy - (Added by TW Conv) ??? KS REVISE MEDIAN N/CARPAL TUNNEL SURG Neuroplasty Decompression Median Nerve At Carpal Tunnel - (Added by TW Conv) ??? US ABDOMEN COMPLETE W LIVER DOPPLER (C) Right 02/27/2018 Current Medications: Current Outpatient Medications Medication Sig Dispense Refill ??? acetaminophen ER [...] DAY NEEDED ??? Synthroid 88 mcg tablet No current facility-administered medications for this visit. Allergies: Allergies Allergen Reactions ??? Bee Pollen Rhinitis ??? Levofloxacin Other (See comments) Makes her anxious ??? Mite Extract Rhinitis ??? Mold Rhinitis Family History: Family History Problem Relation Age of Onset ??? Diabetes Mother Family history of diabetes mellitus - (Added by TW Conv) ??? Heart disease Mother Family history of cardiac disorder - (Added by TW Conv) ??? Cancer Sister Family history of malignant neoplasm - (Added by TW Conv) ??? Cancer Brother Family history of malignant neoplasm - (Added by TW Conv) ??? Heart attack Father Family history of myocardial infarction - (Added by TW Conv) Social History: Social History Socioeconomic History ??? Marital status: Tobacco Use ??? Smoking status: Former Smoker Types: Cigarettes Quit date: 1998 Years since quittin.1 ??? Smokeless tobacco: Never Used Vaping Use ??? Vaping Use: Never used Review of Systems: Review of Systems Constitutional: [...] Genitourinary: Negative for hematuria. Musculoskeletal: Positive for myalgias. Negative for arthralgias and back pain. Skin: Negative for color change. Allergic/Immunologic: Positive for environmental allergies. Negative for food allergies. Neurological: Negative for dizziness, light-headedness and headaches. Physical Exam: Vitals: 08/10/21 1105 BP: 142/80 Pulse: 74 Resp: 18 Temp: 36.9 ??C (98.4 ??F) SpO2: 95% Weight: 120.2 kg (265 lb) Physical Exam HENT: Head: Normocephalic and atraumatic. [...] (Primary) Assessment & Plan: Due to the patient stating that she is snoring under the mask and an worsening of her secondary polycythemia, I have increased his CPAP pressure to 17 cm of water pressure. The patient will continue to follow up with Oncology for the polycythemia and has a CBC ordered prior to her next visit. [employer] provider Plus. The patient also received an order for full set of supplies. Patient is benefitting from CPAP Rendering Provider & Department: Radha Stanton NP Cosigned by Eric Gonzalez MD at 08/10/2021 12:18 PM AUDIO VIDEO REPAIRER O VIDEO REPAIRER O VIDEO REPAIRER documented in this encounter Miscellaneous Notes * Assessment & Plan Note - Radha Stanton NP - 08/10/2021 11:34 AM AUDIO VIDEO REPAIRER Associated Problem(s): NIRANJAN (obstructive sleep apnea) Due to the patient stating that she is snoring under the mask and an worsening of her secondary polycythemia, I have increased his CPAP pressure to 17 cm of water pressure. The patient will continue to follow up with Oncology for the polycythemia and has a CBC ordered prior to her next visit. [employer] provider Plus. The patient also received an order for full set of supplies. Patient is benefitting from CPAP O VIDEO REPAIRER O VIDEO REPAIRER documented in this encounter Plan of Treatment Not on file documented as of this encounter Visit Diagnoses Diagnosis NIRANJAN (obstructive sleep apnea)- Primary Obstructive sleep apnea (adult) (pediatric) documented in this encounter Care Teams Ballistic Technician Relationship Specialty Start Date End Date Alex Browne MD [address] [place] [address] PCP - General 10/11/18 11/21/22 documented as of this encounter
--- OUTSIDE RECORDS SUMMARY | 2024-06-23 15:27 | XMS_ITS | Encounter Summary ---
Author Organization [facility] Healthcare Address [address] [place] [address] Care Team Providers Care Tape Cutting Machine Operator Name Role Phone Unavailable Primary Care Provider Unavailabl e Encounter Details Date Type Department Care Team (Late st Contact Info) Description 06/29/2015 7:07 AM WET MACHINE OPERATOR Hospital Encounter [facility] Alex Browne MD [address] [place] [phone] Essential (primary) hypertension; Hypothyroidism; Other care home (current) drug therapy; Mixed hyperlipidemia Social History Tobacco Use Types Packs/Day Years [...] Procedure Name Priority Date/Time Associated Diagnosis Comments TSH Routine 06/29/2015 7:15 AM WET MACHINE OPERATOR T4, FREE Routine 06/29/2015 7:15 AM WET MACHINE OPERATOR LIPID PANEL Routine 06/29/2015 7:15 AM WET MACHINE OPERATOR COMPREHENSIVE METABOLIC PANEL Routine 06/29/2015 7:15 AM WET MACHINE OPERATOR documented in this encounter Results * T4, free (06/29/2015 7:15 AM WET MACHINE OPERATOR) Free T4 1.35 0.93 - 1.70 ng/dL 06/29/2015 7:15 AM WET MACHINE OPERATOR 06/29/2015 7:23 AM WET MACHINE OPERATOR us Alex Browne MD LAB BLOOD ORDERABLES Final Result Performing Organization Address [facility] [address] [facility] Co de Phone Number [facility] HISTORICAL RESULTS * (ABNORMAL) TSH (06/29/2015 7:15 AM WET MACHINE OPERATOR) TSH 4.22(H) 0.27 - 4.20 uIU/mL 06/29/2015 7:15 AM WET MACHINE OPERATOR 06/29/2015 7:23 AM WET MACHINE OPERATOR us Alex Browne MD LAB BLOOD ORDERABLES Final Result Performing Organization Address [facility] [address]/[facility] de Phone Number [facility] HISTORICAL RESULTS * (ABNORMAL) Lipid panel (06/29/2015 7:15 AM WET MACHINE OPERATOR) Triglycerides 78 0 - 199 mg/dL Comment:12 hr pc highly samanta mmended for Triglyceride Cholesterol 139 0 - 199 mg/dL Comment: Borderline: ??200-239 High Risk: ?? >239 HDL Cholesterol 78(H) 40 - 60 mg/dL Comment: Major Risk ?< 40 mg/dL Moderate Risk ?40-60 mg/dL Negative Risk ?? > 60 mg/dL LDL Cholesterol, Calc 45 0 - 130 mg/dL Comment:High Risk > 159 mg/d L Cholesterol/HDL Ratio 1.8 Comment: Cholesterol / HDL Ratio 3.5:1 or less is desirable. Cholesterol / HDL Ratio greater than 5:1 is considered higher risk for developing heart disease. 06/29/2015 7:15 AM WET MACHINE OPERATOR 06/29/2015 7:23 AM WET MACHINE OPERATOR us Alex Browne MD LAB BLOOD ORDERABLES Final Result [employer] HISTORICAL RESULTS * (ABNORMAL) Comprehensive metabolic panel (06/29/2015 7:15 AM WET MACHINE OPERATOR) Sodium 137 135 - 145 mmol/L 06/29/2015 8:14 AM WET MACHINE OPERATOR [facility] [employer] HISTORICAL RESULTS Potassium 4.0 3.3 - 5.1 mmol/L 06/29/2015 8:14 AM [facility] [employer] HISTORICAL RESULTS Chloride 98 96 - 108 mmol/L 06/29/2015 8:[address] [facility] Carbon Dioxide 29 22 - 32 mmol/L 06/29/2015 8:14 AM [facility] [employer] HISTORICAL RESULTS Anion Gap 10 7 - 16 06/29/2015 8:[address] [facility]ISTORICAL RESULTS Glucose 95 70 - 100 mg/dL 06/29/2015 8:14 AM [facility] [employer] [facility] BUN 16 6 - 20 mg/dL 06/29/2015 8:[address] [facility]ISTOR[facility] RESULTS Creatinine 0.9 0.5 - 1.1 mg/dL 06/29/2015 8:14 AM [facility] [employer] HISTORICAL RESULTS Comment: NOTE: Estimated GFR (Cockroft-Gault) will NOT be calculated unless patient Height and Weight were entered. Also, Kidney Disease Stage (GFR) and Estimated GFR (Cockroft-Gault) will NOT be calculated if Creatinine result is <0.2. Kidney Disease Stage 68 mL/MIN 06/29/2015 8:14 AM [facility] [employer] [facility] HISTORICAL RESULTS Comment: NOTE; ??The GFR is an estimated value using the creatinine, sex, age, and race of the patient. THE ESTIMATED GFR IS VALIDATED FOR AGES 18-70 YEARS STAGE ?mL/Min ?DESCRIPTION ??1 ?90 mL/min or more ?Normal or elevated GFR ??2 ? 60-89 mL/min ?Mildly decreased GFR ??3 ? 30-59 mL/min ?Moderately decreased GFR ??4 ? 15-29 mL/min ?Severely decreased GFR ??5 ? <15 mL/min ? Kidney failure or on dialysis @ Calcium 10.1(H) 8.6 - 10.0 mg/dL 06/29/2015 8:14 AM [employer] HISTORICAL RESULTS Total Protein 7.7 6.4 - 8.3 g/dL 06/29/2015 8:14 AM WET MACHINE OPERATOR [employer] HISTORICAL RESULTS Albumin 4.5 3.5 - 5.2 g/dL 06/29/2015 8:14 AM [employer] HISTORICAL RESULTS Globulin 3.2 2.3 - 3.5 gm/dL 06/29/2015 8:14 AM WET MACHINE OPERATOR [employer] HISTORICAL RESULTS Albumin/Globulin Ratio 1.4 1.1 - 1.8 06/29/2015 8:14 AM WET MACHINE OPERATOR [employer] HISTORICAL RESULTS Total Bilirubin 0.8 0.0 - 1.2 mg/dL 06/29/2015 8:14 AM WET MACHINE OPERATOR [employer] HISTORICAL RESULTS AST 31 0 - 32 U/L 06/29/2015 8:14 AM WET MACHINE OPERATOR [employer] HISTORICAL RESULTS ALT 39(H) 0 - 33 U/L 06/29/2015 8:14 AM WET MACHINE OPERATOR [employer] HISTORICAL RESULTS Alkaline Phosphatase 88 35 - 104 U/L 06/29/2015 8:14 AM [employer] HISTORICAL RESULTS 06/29/2015 7:15 AM WET MACHINE OPERATOR 06/29/2015 7:23 AM WET MACHINE OPERATOR Alex Browne MD LAB BLOOD ORDERABLES Final Result [employer] HISTORICAL RESULTS documented in this encounter Visit Diagnoses Diagnosis Essential (primary) hypertension Unspecified essential hypertension Hypothyroidism Unspecified hypothyroidism Other third cook (current) drug therapy Mixed hyperlipidemia documented in this encounter
--- OUTSIDE RECORDS SUMMARY | 2024-06-23 15:27 | XMS_ITS | Encounter Summary ---
Author Organization [facility] Address [address] [place] [address] Care Team Providers Care Club Licensee Name Role Phone Unavailable Primary Care Provider Unavailabl e Encounter Details Date Type Department Care Team (Late st Contact Info) Description 09/25/2015 6:57 AM CDT Hospital Encounter [facility] Jeffrey Weiss MD [address] [address] Encounter for screening mammogram for malignant neoplasm of breast; Family history of malignant neoplasm of breast Social History Tobacco Use Types Packs/Day Years [...] Procedure Name Priority Date/Time Associated Diagnosis Comments SCREENING MAMMOGRAM BILATERAL W JUAN Routine 09/25/2015 6:59 AM CDT GENERAL RADIOLOGY REPORT 09/25/2015 12:00 AM CDT documented in this encounter Results * Screening Mammogram Bilateral W Juan (09/25/2015 6:59 AM CDT) Anatomical Region Laterality Modality Breast Bilateral Mammography 09/25/2015 6:59 AM CDT Impressions 09/25/2015 8:44 AM CDT BI-RAD 2 ??BENIGN There is no mammographic evidence of malignancy. A 1 year screening mammogram is recommended. ?? The patient has been or will be contacted. ?? The patient will be entered into a reminder system with a target due date of 1 year for her next screening exam. Electronically signed by: Dr. Dwayne Gupta nh/:09/25/2015 08:42:53 ?? Mechanical Manufacturing Technician: Tatiana Mann RT(R)(M), [facility] letter sent: Normal Exam ?? Reading location: BI-RADS: 2 Benign [EOD] Narrative 09/25/2015 8:44 AM CDT - MG BILATERAL DIGITAL SCREENING MAMMOGRAM 3D/2D WITH CAD WITH MEDIOLATERAL OBLIQUE CRANIOCAUDAL: 09/25/2015 The study was acquired using full field digital technology and interpreted from soft copy. ?? Current study was also evaluated with R2 CAD. 2D digital mammographic views, as well as 3D digital tomosynthesis were performed in the CC and MLO projections. CLINICAL: Routine mammogram. Patient denies any problems. Sister with breast cancer. No personal history of breast cancer. ?? COMPARISONS: Comparison is made to exams dated: ??06/02/2014 mammogram - [facility], 05/10/2013 mammogram [facility], and 11/15/2012 mammogram and ultrasound - [facility]. ?? BREAST TISSUE: The tissue of both [...] MG BILATERAL DIGITAL SCREENING MAMMOGRAM 3D/2D WITH CAD WITH MEDIOLATERALOBLIQUE CRANIOCAUDAL: 09/25/2015 The study was acquired using full field digital technology and interpretedfrom soft copy. Current study was also evaluated with R2 CAD. 2D digital mammographic views, as well as 3D digital tomosynthesis were performed in the CC and MLO projections. CLINICAL: Routine mammogram. Patient denies any problems. Sister withbreast cancer. No personal history of breast cancer. COMPARISONS: Comparison is made to exams dated: 06/02/2014 mammogram -[facility], 05/10/2013 mammogram [facility], and 11/15/2012mammogram and ultrasound - [facility]. BREAST TISSUE: The tissue of both breasts [...] her next screening exam. Electronically signed by: Dr. Dwayne Gupta nh/:09/25/2015 08:42:53 Mechanical Manufacturing Technician: Tatiana DUCKWORTH(R)(M), [facility] letter sent: Normal Exam Reading location: BI-RADS: 2 Benign [EOD] us Jeffrey RAO MAMMO PROCEDURES Final Result * GENERAL RADIOLOGY REPORT (09/25/2015 12:00 AM CDT) Anatomical Region Laterality Modality Radiographic Liz ging Narrative 09/25/2015 12:00 AM CDT Ordered by an unspecified provider. us Historical Provider MD RAO XR PROCEDURES Final R esult documented in this encounter Visit Diagnoses Diagnosis Encounter for screening mammogram for malignant neoplasm of breast Family history of malignant neoplasm of breast documented in this encounter
--- OUTSIDE RECORDS SUMMARY | 2024-06-23 15:27 | XMS_ITS | Encounter Summary ---
Author Organization [facility] Healthcare Address [address] [place] [id number] Care Team Providers Care Port Purser Name Role Phone Alex Browne MD Primary Care Provider [phone]- [phone] Encounter Details Date Type Department Care Team (Late st Contact Info) Description 05/04/2017 8:59 AM CORPORATION OFFICER Hospital Encounter [facility] Alex Browne MD [address] [place] [address] Essential (primary) hypertension; Morbid (severe) obesity due to excess calories (CMS/HCC); Encounter for screening for cardiovascular disorders Social History Tobacco Use Types Packs/Day Years [...] Procedure Name Priority Date/Time Associated Diagnosis Comments LIPID PANEL Routine 05/04/2017 9:05 AM CORPORATION OFFICER COMPREHENSIVE METABOLIC PANEL Routine 05/04/2017 9:05 AM CORPORATION OFFICER documented in this encounter Results * Lipid panel (05/04/2017 9:05 AM CORPORATION OFFICER) Triglycerides 177 0 - 199 mg/dL Comment:12 hr pc highly samanta mmended for Triglyceride Cholesterol 159 0 - 199 mg/dL Comment: Borderline: ??200-239 High Risk: ?? >239 HDL Cholesterol 48 40 - 60 mg/dL Comment: Major Risk ?< 40 mg/dL Moderate Risk ?40-60 mg/dL Negative Risk ?? > 60 mg/dL LDL Cholesterol, Calc 76 0 - 130 mg/dL Comment:High Risk > 159 mg/d L Cholesterol/HDL Ratio 3.3 Comment: Cholesterol / HDL Ratio 3.5:1 or less is desirable. Cholesterol / HDL Ratio greater than 5:1 is considered higher risk for developing heart disease. 05/04/2017 9:05 AM CORPORATION OFFICER 05/04/2017 9:08 AM CORPORATION OFFICER Alex Browne MD LAB BLOOD ORDERABLES Final Result [facility] HISTORICAL RESULTS * (ABNORMAL) Comprehensive metabolic panel (05/04/2017 9:05 AM CORPORATION OFFICER) Sodium 137 135 - 145 mmol/L Potassium 4.3 3.3 - 5.1 mmol/L Chloride 99 96 - 108 mmol/L Carbon Dioxide 30 22 - 32 mmol/L Anion Gap 8 7 - 16 Glucose 128(H) 70 - 100 mg/dL BUN 15 8 - 23 mg/dL Creatinine 0.8 0.5 - 1.1 mg/dL Comment: NOTE: Estimated GFR (Cockroft-Gault) will NOT be calculated unless patient Height and Weight were entered. Also, Kidney Disease Stage (GFR) and Estimated GFR (Cockroft-Gault) will NOT be calculated if Creatinine result is <0.2. Kidney Disease Stage 78 mL/MIN 05/04/2017 9:55 AM [facility] HISTORICAL RESULTS Comment: NOTE; ??The GFR is an estimated value using the creatinine, sex, age, and race of the patient. THE Estimated Kidney Disease GFR is validated for AGES 18-70 YEARS STAGE ?mL/Min ?DESCRIPTION ??1 ?90 mL/min or more ?Normal or elevated GFR ??2 ? 60-89 mL/min ?Mildly decreased GFR ??3 ? 30-59 mL/min ?Moderately decreased GFR ??4 ? 15-29 mL/min ?Severely decreased GFR ??5 ? <15 mL/min ? Kidney failure or on dialysis @ Calcium 9.8 8.8 - 10.2 mg/dL 05/04/2017 9:55 AM [facility] HISTORICAL RESULTS Total Protein 7.1 6.4 - 8.3 g/dL 05/04/2017 9:55 AM [facility] HISTORICAL RESULTS Albumin 4.1 3.5 - 5.2 g/dL 05/04/2017 9:55 AM [facility] HISTORICAL RESULTS Globulin 3.0 2.3 - 3.5 gm/dL 05/04/2017 9:55 AM [facility] HISTORICAL RESULTS Albumin/Globulin Ratio 1.4 1.1 - 1.8 05/04/2017 9:55 AM [facility] HISTORICAL RESULTS Total Bilirubin 0.6 0.0 - 1.2 mg/dL 05/04/2017 9:55 AM [facility] HISTORICAL RESULTS AST 30 0 - 32 U/L 05/04/2017 9:55 AM CORPORATION OFFICER [employer] HISTORICAL RESULTS ALT 43(H) 0 - 33 U/L 05/04/2017 9:55 AM CORPORATION OFFICER [facility] [employer] HISTORICAL RESULTS Alkaline Phosphatase 113(H) 35 - 104 U/L 05/04/2017 9:55 AM CORPORATION OFFICER [facility] HISTOR[facility] RESULTS 05/04/2017 9:05 AM CORPORATION OFFICER 05/04/2017 9:08 AM CORPORATION OFFICER us Alex Browne MD LAB BLOOD ORDERABLES Final Result [facility] HISTOR[facility] RESULTS documented in this encounter Visit Diagnoses Diagnosis Essential (primary) hypertension Unspecified essential hypertension Morbid (severe) obesity due to excess calories (HCC) Encounter for screening for cardiovascular disorders documented in this encounter Care Teams Port Purser Relationship Specialty Start Date End Date Alex Browne MD PCP - General 05/04/17 06/01/17 documented as of this encounter
--- OUTSIDE RECORDS SUMMARY | 2024-06-23 15:27 | XMS_ITS | Encounter Summary ---
Author Organization [facility] Address [address] [place] [address] Care Team Providers Care Personalization Specialist Name Role Phone Unavailable Primary Care Provider Unavailabl e Encounter Details Date Type Department Care Team (Late st Contact Info) Description 06/02/2014 7:01 AM RADIATION SAFETY OFFICER Hospital Encounter [facility] Alex Browne MD [address] [place] [phone] Other screening mammogram Social History Tobacco Use Types Packs/Day Years [...] Priority Date/Time Associated Diagnosis Comments SCREENING MAMMOGRAM 2D BILATERAL Routine 06/02/2014 7:02 AM RADIATION SAFETY OFFICER GENERAL RADIOLOGY REPORT 06/02/2014 12:00 AM RADIATION SAFETY OFFICER documented in this encounter Results * Screening Mammogram 2D Bilateral (06/02/2014 7:02 AM RADIATION SAFETY OFFICER) Anatomical Region Laterality Modality Breast Bilateral Mammography 06/02/2014 7:02 AM RADIATION SAFETY OFFICER Impressions 06/02/2014 1:39 PM RADIATION SAFETY OFFICER BI-RAD 1 ??NEGATIVE There is no mammographic evidence of malignancy. A 1 year screening mammogram is recommended. ?? The patient has been or will be contacted. ?? The patient will be entered into an automated reminder system to schedule a mammogram in one year. ?? Electronically signed by: Morris Marley md/dev:06/02/2014 08:34:11 ?? Personal Injury Specialist: Tatiana VICK)(Alex), [facility] letter sent: Normal Exam ?? Reading location: BI-RADS: 1 Negative [EOD] Narrative 06/02/2014 1:39 PM RADIATION SAFETY OFFICER - YAW BILATERAL SCREENING W/CAD BILATERAL DIGITAL SCREENING MAMMOGRAM 3D/2D WITH CAD: 06/02/2014 The study was acquired using full field digital technology and interpreted from soft copy. ?? Current study was also evaluated with ICAD version 7.2. COMPARISONS: Comparison is made to exams dated: ??11/15/2012 mammogram, 05/16/2012 mammogram - [facility], 05/14/2012 mammogram - [facility], 05/10/2013 mammogram - [facility], 11/15/2012, and 05/03/2011 [facility]. ?? BREAST TISSUE:There are scattered fibroglandular densities in both breasts. ?? FINDINGS: No significant masses, calcifications, or other findings are seen in either breast. ?? There has been no significant interval change. Procedure Note Provider, MD Kellie - 11/10/2020 - YAW BILATERAL SCREENING W/CAD BILATERAL DIGITAL SCREENING MAMMOGRAM 3D/2D WITH CAD: 06/02/2014 The study was acquired using full field digital technology and interpretedfrom soft copy. Current study was also evaluated with ICAD version 7.2. COMPARISONS: Comparison is made to exams dated: 11/15/2012 mammogram, 05/16/2012 mammogram - [facility], 05/14/2012 mammogram - [facility], 05/10/2013 mammogram - [facility], 11/15/2012, and05/03/2011 [facility]. BREAST TISSUE:There are scattered fibroglandular densities in bothbreasts. FINDINGS: No significant masses, calcifications, or other findings areseen in either breast. There has been no significant interval change. IMPRESSION: BI-RAD 1 NEGATIVE There is no mammographic evidence of malignancy. A 1 year screeningmammogram is recommended. The patient has been or will be contacted. The patient will be entered into an automated reminder system to schedulea mammogram in one year. Electronically signed by: Morris Marley md/dev:06/02/2014 08:34:11 Personal Injury Specialist: Tatiana Mann RT(R)(M), [facility] letter sent: Normal Exam Reading location: BI-RADS: 1 Negative [EOD] us Alex Browne MD IMG MAMMO PROCEDURES Final Result * GENERAL RADIOLOGY REPORT (06/02/2014 12:00 AM RADIATION SAFETY OFFICER) Anatomical Region Laterality Modality Radiographic Liz ging Narrative 06/02/2014 12:00 AM RADIATION SAFETY OFFICER Ordered by an unspecified provider. us Historical Provider IMTonie XR PROCEDURES Final R esult documented in this encounter Visit Diagnoses Diagnosis Other screening mammogram documented in this encounter
--- OUTSIDE RECORDS SUMMARY | 2024-06-23 15:27 | XMS_ITS | Encounter Summary ---
Author Organization [facility] Healthcare Address [address] [place] [address] Care Team Providers Care Candy Rolling Machine Operator Name Role Phone Alex Browne MD Primary Care Provider +1- [phone] Encounter Details Date Type Department Care Team (Latest Contact Info) Description 04/18/2018 7:45 PM CDT - 04/19/2018 5:26 AM CDT Hospital Encounter [facility] OP Eric Gonzalez MD [address] [address] Obstructive sleep apnea Social History Tobacco Use Types Packs/Day Years Used Date Smoking Tobacco: Former Comments Unknown Sex and Gender Information Value Date Recorded Sex Assigned at Not on file Legal Sex Female 12:44 PM CDT Gender Identity Not on file Sexual Orientation Not on file documented as of this encounter Last Filed Vital Signs Vital Sign Reading Time Taken Comments Blood Pressure - - Pulse - - Temperature - - Respiratory Rate - - Oxygen Saturation 98% 04/18/2018 11:00 PM CDT Inhaled Oxygen Concentration - - Weight - - Height - - Body Mass Index - - documented in this encounter Plan of Treatment Not on file documented as of this encounter Procedures Procedure Name Priority Date/Time Associated Diagnosis Comments SLEEP LAB/STUDY - RESULT 04/25/2018 12:00 AM CDT documented in this encounter Results * SLEEP LAB/STUDY - RESULT (04/25/2018 12:00 AM CDT) Narrative 04/25/2018 12:00 AM CDT Ordered by an unspecified provider. Historical Provider MD Final Res ult documented in this encounter Visit Diagnoses Diagnosis Obstructive sleep apnea Obstructive sleep apnea (adult) (pediatric) documented in this encounter Care Teams Candy Rolling Machine Operator Relationship Specialty Start Date End Date Alex Browne MD PCP - General 06/23/17 09/18/18 documented as of this encounter
--- OUTSIDE RECORDS SUMMARY | 2024-06-23 15:27 | XMS_ITS | Encounter Summary ---
Author Organization [facility] Address [address] [place] [address] Phone Care Team Providers Care Atlassian Administrator Name Role Phone Alex Browne MD Primary Care Provider +1- [phone] Reason for Visit * Reason Comments Earache Facial Pain Encounter Details Date Type Department Care Team (Late st Contact Info) Description 02/20/2020 2:00 PM CDT Office Visit [facility] Otolaryngology [address] [place] [phone] Benjamín Delong II, MD [address] [place] [phone] Acute recurrent maxillary sinusitis (Primary Dx); Dysfunction of left eustachian tube [...] Pressure - - Pulse - - Temperature 36.8 ??C (98.3 ??F) 02/20/2020 2:00 PM CD T Respiratory Rate - - Oxygen Saturation - - Inhaled Oxygen Concentration - - Weight 132.5 kg (292 lb) 02/20/2020 2:00 PM CDT Height 162.6 cm (5' 4 ) 02/20/2020 2:00 PM CDT Body Mass Index 50.12 02/20/2020 2:00 PM CDT documented in this encounter Ordered Prescriptions Prescription Sig Dispense Quantity Refills Last Filled Start Date End Date cefuroxime (CEFTIN) 250 mg tabletIndications: Acute recurrent maxillary sinusitis Take 1 tablet (250 mg total) by mouth 2 (two) times a day for 7 days 14 tablet 02/20/2020 02/27/2020 fluconazole (Diflucan) 150 mg tabletIndications: Acute recurrent maxillary sinusitis 1 tab po bid 2 tablet 02/20/2020 03/06/2020 documented in this encounter Progress Notes * Benjamín Delong II, MD - 02/20/2020 2:00 PM CDT Established Patient Report 02/22/20 Patient: Kristal Bustos : 1955 Diagnosis: Problem List Items Addressed This Visit Nervous Dysfunction of left eustachian tube Respiratory Acute recurrent maxillary sinusitis - Primary Relevant Medications fluconazole (Diflucan) 150 mg tablet cefuroxime (CEFTIN) 250 mg tablet Interval History: Kristal Bustos returns for an established patient visit. She was seen today for evaluation of ear pain and sinus problems. She has a history ear problems and eustachian tube dysfunction in the past. She has had an ear tube placed in the left ear years ago. She now complains of pain in the left ear that has been described as mild. Right side gives her some pain but it is not as bad. There is nobleeding or otorrhea. Her hearing seems stable. She also complains of nasal congestion and thick mucus in the nose. She has facial pressure in her cheeks. She has no epistaxis. She is not taking any medicines for this currently. Sinus symptoms aredescribed as moderate. Review of systems otherwise unchanged. Interval Physical [...] patent without mass lesions. Tympanic membrane is intact although it is mildly thickened and mildly retracted. Left Ear: Normal pinna and appearance of external ear. Ear canal is patent without mass lesions. There is a T-tube in place in the left eardrum without signs of infection. The eardrum is mildly retracted. Nasal Exam: External nose has no masses or lesions. The nasal septum is midline Nasal mucosa is moist. Inferior turbinates are mildly erythematous bilaterally with some thick mucus drainage bilaterally.. No polyps, masses, or purulent discharge. Oral Cavity/Oropharynx: Normal lips, teeth, and gums. Oral mucosa is moist without lesions. Tongue and floor of mouth have no lesions or masses and are soft to palpation. Palate and uvula are clear and elevate symmetrically. Tonsils are surgically absent The oropharynx is clear. Neck: No masses, lesions, or lymphadenopathy. Trachea midline. Thyroid has no palpable nodules. Temporomandibular joints are nontender. Respiratory: No retractions. Procedures: None Medication(s) Ordered ??? fluconazole (Diflucan) 150 mg tablet Si tab po bid Dispense: 2 tablet Refill: 0 ??? cefuroxime (CEFTIN) 250 mg tablet Sig: Take 1 tablet (250 mg total) by mouth 2 (two) times a day for 7 days Dispense: 14 tablet Refill: 0 No orders of the defined types were placed in this encounter. Assessment and Plan: This is a 64 y.o.-year-old female with eustachian tube dysfunction. Left ear shows a T-tube in place and it is clear without active infection. We will keep an eye on this and shewould need to follow up every 6 months for observation of this. Patient appears to have acute maxillary sinusitis. I have started her on Ceftin 250 mg twice a day for 1 week. Because of vaginal candidiasis with antibiotic she also was given Diflucan for 1 day. Benjamín Delong II, M.D. documented in this encounter Plan of Treatment Not on file documented as of this encounter Visit Diagnoses Diagnosis Acute recurrent maxillary sinusitis- Primary Dysfunction of left eustachian tube documented in this encounter Historical Medications * This list may reflect changes made after this encounter. aspirin 81 mg enteric coated tablet Take 1 tablet (81 mg total) by mouth daily fluticasone propionate (FLONASE) 50 mcg/actuation nasal spray Administer 2 sprays into each nostril daily metFORMIN (GLUCOPHAGE) 500 mg tabletIndication s:two times per day Take 1 tablet (500 mg total) by mouth daily 01/23/2020 Synthroid 88 mcg tabletIndication s:100 mg- per patient 11/22/2019 hydroCHLOROthiaz sveta (HYDRODIURIL) 12.5 mg tablet 12/12/2019 fenofibrate micronized (LOFIBRA) 134 mg capsule 01/13/[address] (CYMBALTA) 30 mg capsule 02/16/2020 cetirizine (ZyrTEC) 10 mg tablet 01/30/2020 meclizine (ANTIVERT) 12.5 mg tablet Take 12.5 mg by mouth every 8 (eight) hours as needed 01/06/2020 1 added in this encounter Care Teams Atlassian Administrator Relationship Specialty Start Date End Date Alex Browne MD [address] [place] [address] PCP - General 10/11/18 11/21/22 documented as of this encounter
--- OUTSIDE RECORDS SUMMARY | 2024-06-23 15:27 | XMS_ITS | Encounter Summary ---
Author Organization [facility] Healthcare Address [address] [place] [address] Care Team Providers Care Pododermatologist Name Role Phone Unavailable Primary Care Provider Unavailabl e Encounter Details Date Type Department Care Team (Late st Contact Info) Description 11/15/2012 7:39 AM CDT Hospital Encounter [facility] Alex Browne MD [address] [place] [address] Other abnormal findings on radiological examination of breast; Solitary cyst of breast Social History Tobacco Use Types [...] Name Priority Date/Time Associated Diagnosis Comments US BREAST RIGHT COMPLETE Routine 11/15/2012 8:32 AM CDT DIAGNOSTIC MAMMOGRAM 2D RIGHT Routine 11/15/2012 7:40 AM CDT documented in this encounter Results * US Breast Right Complete (11/15/2012 8:32 AM CDT) Anatomical Region Laterality Modality Breast Right Ultrasound 11/15/2012 8:32 AM CDT Narrative 11/15/2012 9:07 AM CDT Please refer to the diagnostic mammography report from the same date. The reports have been combined. THIS IS AN ELECTRONICALLY VERIFIED REPORT 11/15/2012 9:02 AM: ??Kathleen Moon M.D. Kathleen Moon M.D. KL:marito 09:02 AM 09:02 AM [EOD] Procedure Note Provider, MD Kellie - 11/10/2020 Please refer to the diagnostic mammography report from the same date. The reports have been combined. THIS IS AN ELECTRONICALLY VERIFIED REPORT 11/15/2012 9:02 AM: Kathleen Moon M.D. Kathleen Moon M.D. KL:marito 09:02 AM 09:02 AM [EOD] us Alex Browne MD IMG MAMMO PROCEDURES Final Result * Diagnostic Mammogram 2D Right (11/15/2012 7:40 AM CDT) Anatomical Region Laterality Modality Breast Right Mammography 11/15/2012 7:40 AM CDT Impressions 11/15/2012 9:06 AM CDT ?? Minimally enlarged cluster of cysts in the 5 o'clock axis right breast without suspicious sonographic or mammographic features. ??Recommend short-interval follow-up in 6 months. ?? The patient also be due for a left screening mammogram at that time. ASSESSMENT: ??BIRADS: ??3 - probably benign Results were discussed with the patient by Dr. Moon at the time of her exam. THIS IS AN ELECTRONICALLY VERIFIED REPORT 11/15/2012 9:02 AM: ??Kathleen Moon M.D. Kathleen Moon M.D. MARITO:marito 09:02 AM 09:02 AM [EOD] Narrative 11/15/2012 9:06 AM CDT EXAMINATION: ??Diagnostic right mammography and right breast ultrasound HISTORY: ??57 year-old asymptomatic woman presents for follow-up of a cluster of cysts in the right breast. ??History of 2 benign right breast biopsies. ??Her sister was diagnosed with breast cancer at age 46. ??4 female cousins were diagnosed breast cancer in their 50s. COMPARISON: Prior mammogram and ultrasound images 05/16/12 and prior mammograms dating back to 03/17/09. TECHNIQUE: ??Right digital mammography was performed, with the aid of computer aided detection (CAD). Right breast ultrasound. FINDINGS: ?? Mammography findings: Standard, true lateral and spot compression views of right breast were obtained. ??The right breast is composed of scattered fatty and fibroglandular tissues. There is redemonstration of a hypodense lobulated circumscribed mass in the 5 o'clock axis at a middle depth. ??This currently measures approximately 15 mm, approximately 1 mm larger than the prior exam. No associated microcalcifications or architectural distortion are seen. Sonography findings: Targeted ultrasound was performed in the right breast, 5 o'clock axis, 4 cm from the nipple, demonstrating a cluster of cysts with 1 or 2 thin internal septations. ??This measures 11 x 9 x 5 mm, minimally increased in size since the prior exam where it measured 11 x 8 x 4 mm. ??No suspicious mural nodularity or thick septations are seen. ??No internal vascular flow is evident. ??This demonstrates enhancing back wall, enhanced through transmission and is parallel to the skin line, similar to the prior exam. Procedure Note Provider, MD Kellie - 11/10/2020 EXAMINATION: Diagnostic right mammography and right breast ultrasound HISTORY: 57 year-old asymptomatic woman presents for follow-up of acluster of cysts in the right breast. History of 2 benign right breast biopsies.Her sister was diagnosed with breast cancer at age 46. 4 female cousins were diagnosed breast cancer in their 50s. COMPARISON: Prior mammogram and ultrasound images 05/16/12 and prior mammograms dating back to 03/17/09. TECHNIQUE: Right digital mammography was performed, with the aid ofcomputer aided detection (CAD). Right breast ultrasound. FINDINGS: Mammography findings: Standard, true lateral and spot compression views of right breast were obtained. The right breast is composed of scattered fatty andfibroglandular tissues. There is redemonstration of a hypodense lobulated circumscribed mass inthe 5 o'clock axis at a middle depth. This currently measures approximately 15mm, approximately 1 mm larger than the prior exam. No associated microcalcifications or architectural distortion are seen. Sonography findings: Targeted ultrasound was performed in the right breast, 5 o'clock axis, 4cm from the nipple, demonstrating a cluster of cysts with 1 or 2 thininternal septations. This measures 11 x 9 x 5 mm, minimally increased in sizesince the prior exam where it measured 11 x 8 x 4 mm. No suspicious mural nodularity or thick septations are seen. No internal vascular flow is evident. This demonstrates enhancing back wall, enhanced throughtransmission and is parallel to the skin line, similar to the prior exam. IMPRESSION: Minimally enlarged cluster of cysts in the 5 o'clock axis right breastwithout suspicious sonographic or mammographic features. Recommend short-interval follow-up in 6 months. The patient also be due for a left screening mammogram at that time. ASSESSMENT: BIRADS: 3 - probably benign Results were discussed with the patient by Dr. Moon at the time of herexam. THIS IS AN ELECTRONICALLY VERIFIED REPORT 11/15/2012 9:02 AM: Kathleen Moon M.D. Kathleen Moon M.D. KL:marito 09:02 AM 09:02 AM [EOD] Alex Browne MD IMG MAMMO PROCEDURES Final Result documented in this encounter Visit Diagnoses Diagnosis Other abnormal findings on radiological examination of breast Solitary cyst of breast documented in this encounter
--- OUTSIDE RECORDS SUMMARY | 2024-06-23 15:27 | XMS_ITS | Encounter Summary ---
Author Organization [facility] Address [address] [place] [address] Care Team Providers Care Radiographer Technologist Name Role Phone Alex Browne MD Primary Care Provider +1- [phone] Encounter Details Date Type Department Care Team (Late st Contact Info) Description 10/11/2018 6:51 AM CDT - 10/11/2018 9:14 AM CDT Hospital Encounter [facility] Alex Browne MD [address] [place] [address] Social History Tobacco Use Types Packs/Day Years [...] PANEL, ACUTE Routine 10/11/2018 7:03 AM CDT ALT Routine 10/11/2018 7:03 AM CDT AST Routine 10/11/2018 7:03 AM CDT documented in this encounter Results * Hepatitis panel, acute (10/11/2018 7:03 AM CDT) HepBsAg NONREACT NONREACTIVE [facility] [place] Comment: [employer] CentaurXP using THUY (chemiluminescent immunoassay) technology. NONREACTIVE: IgM antibodies to Hepatitis B Surface antigen not detected. REACTIVE: IgM antibodies to Hepatitis B Surface antigen detected. Reactive results will be confirmed by neutralization testing. HBsAb qn <3.10 mIU/mL [facility] [place] Comment: Siem[employer] CentaurXP using THUY (chemiluminescent immunoassay) technology. 9.99 IU/L or less.....NONREACTIVE: IgM antibodies to Hepatitis B Surface antibody are not detected. 10.00 IU/L or greater..REACTIVE: IgM antibodies to Hepatitis B Surface antibody are detected. Hep B core IgM NONREACT NONREACTIVE [facility] [place] Comment: Siemens CentaurXP using THUY (chemiluminescent immunoassay) technology. NONREACTIVE: IgM antibodies to Hepatitis B Core antigen not detected. EQUIVOCAL: IgM antibodies to Hepatitis B Core antigen may or may not be present. Obtain a ??new specimen and retest. REACTIVE: IgM antibodies to Hepatitis B Core antigen detected. Hep A IgM NONREACT NONREACTIVE [facility] [place] Comment: [employer] CentaurXP using THUY (chemiluminescent immunoassay) technology. NONREACTIVE: IgM antibodies to Hepatitis A not detected. This does not exclude possibility of exposure to Hepatitis A or early acute infection. EQUIVOCAL:IgM antibodies to Hepatitis A may or may not be present. Suggest recollection and retest. REACTIVE: Antibodies to Hepatitis A detected. Hep C Ab NONREACT NONREACTIVE [facility] [place] Comment: [employer] CentaurXP using THUY (chemiluminescent immunoassay) [...] AM CDT Narrative Resulting Agency Comment CLI Alex Browne MD LAB MICROBIOLOGY - GENERAL ORDERABLES Final Result [facility] [place] [address] [place], [place] [address] [phone] * (ABNORMAL) ALT (10/11/2018 7:03 AM CDT) ALT 64(H) 0 - 33 U/L [facility] 10/11/2018 7:03 AM CDT 10/11/2018 7:09 AM CDT Narrative Resulting Agency Comment CLI Alex Browne MD LAB BLOOD ORDERABLES Final Result Performing Organization Address City/[facility]/ZIP Co de Phone Number [address] [address], [facility] [phone] * (ABNORMAL) AST (10/11/2018 7:03 AM CDT) AST 39(H) 0 - 32 U/L [facility] 10/11/2018 7:03 AM CDT 10/11/2018 7:09 AM CDT Narrative Resulting Agency Comment CLI Alex Browne MD LAB BLOOD ORDERABLES Final Result Performing Organization Address City/[facility]/ZIP Co de Phone Number [address] [address], [facility] [phone] documented in this encounter Visit Diagnoses Not on filedocumented in this encounter Care Teams Radiographer Technologist Relationship Specialty Start Date End Date Alex Browne MD [address] [place] [address] PCP - General 10/11/18 11/21/22 documented as of this encounter
--- OUTSIDE RECORDS SUMMARY | 2024-06-23 15:27 | XMS_ITS | Encounter Summary ---
Author Organization [facility] Healthcare Address [address] [place] [address] Care Team Providers Care Assistant Project Manager Name Role Phone Franny Dolan Primary Care Provider [phone] Encounter Details Date Type Department Care Team (Late st Contact Info) Description 09/19/2018 10:36 AM CDT - 09/19/2018 11:59 PM CDT Hospital Encounter [facility] Franny Dolan PA [address] [place] [address] Discharge Disposition: Discharge to home or self care Social History Tobacco Use Types Packs/Day Years Used Date Smoking Tobacco: Former Comments Unknown Sex and Gender Information Value Date Recorded Sex Assigned at Not on file Legal Sex Female 12:44 PM CDT Gender Identity Not on file Sexual Orientation Not on file documented as of this encounter Discharge Disposition Disposition Code Departure Means Destination Discharge to home or self care documented in this encounter Plan of Treatment Not on file documented as of this encounter Procedures Procedure Name Priority Date/Time Associated Diagnosis Comments XR CLAVICLE RIGHT COMPLETE Routine 09/19/2018 10:59 AM CDT XR RADIUS ULNA RIGHT 2 VIEWS Routine 09/19/2018 12:00 AM CDT XR ELBOW RIGHT 3 OR MORE VIEWS Routine 09/19/2018 12:00 AM CDT XR HUMERUS RIGHT 2 OR MORE VIEWS Routine 09/19/2018 12:00 AM CDT XR SHOULDER RIGHT 2 OR MORE VIEWS Routine 09/19/2018 12:00 AM CDT documented in this encounter Results * XR Clavicle Right Complete (09/19/2018 10:59 AM CDT) Anatomical Region Laterality Modality Clavicle, Chest Right Radiographic Liz ging 09/19/2018 10:5 9 AM CDT Impressions 09/19/2018 1:09 PM CDT ??The right clavicle appears maintained. ??No evidence for acute or prominent focal abnormality. ??The AC joint appears maintained without evidence of dislocation or separation. THIS IS AN ELECTRONICALLY VERIFIED FINAL REPORT 09/19/2018 1:06 PM - Electronically signed by Loy Bermeo WP: WP D: ??09/19/2018 1:06 PM T: ??09/19/2018 1:06 PM Report ID: [id number] Reading Location: ??[id number] [EOD] Narrative 09/19/2018 1:09 PM CDT EXAM DESCRIPTION: ??Clavicle Right Complete REASON FOR STUDY: ??Pain. ??Pt states arm pain since 09-16-18 no injury TECHNIQUE: ??Frontal and angled ??views were acquired of the right clavicle. COMPARISON: ??No previous FINDINGS: BONES/JOINTS: Mineralization of the right clavicle and the regional included bones appear intact. No evidence for acute fracture, dislocation, or subluxation of the right clavicle. No evidence for bony erosion or destruction. On these images the AC joint appears maintained. ??No evidence for separation or injury at the AC joint. The other regional included bones appear intact. SOFT TISSUES: Soft tissues in limited evaluation also appear maintained. The included right upper lung appears well aerated. Procedure Note Provider, MD Kellie - 11/10/2020 EXAM DESCRIPTION: Clavicle Right Complete REASON FOR STUDY: Pain. Pt states arm pain since 09-16-18 no injury TECHNIQUE: Frontal and angled views were acquired of the rightclavicle. COMPARISON: No previous FINDINGS: BONES/JOINTS: Mineralization of the right clavicle and the regionalincluded bones appear intact. No evidence for acute fracture, dislocation, or subluxation of the right clavicle. No evidence for bony erosion or destruction. On these images the AC joint appears maintained. No evidence forseparation or injury at the AC joint. The other regional included bones appear intact. SOFT TISSUES: Soft tissues in limited evaluation also appear maintained. The included right upper lung appears well aerated. IMPRESSION: The right clavicle appears maintained. No evidence for acuteor prominent focal abnormality. The AC joint appears maintained withoutevidence of dislocation or separation. THIS IS AN ELECTRONICALLY VERIFIED FINAL REPORT 09/19/2018 1:06 PM - Electronically signed by Loy Bermeo WP: WP Report ID: [id number] Reading Location: [id number] [EOD] Franny YOUNG IMG XR PROCEDURES Final Result * XR Humerus Right 2 or More Views (09/19/2018 12:00 AM CDT) Anatomical Region Laterality Modality Upper Extremities, Upper Arm Right Rad iographic Imaging 09/19/2018 Impressions 09/19/2018 1:13 PM CDT ??No acute osseous abnormality. THIS IS AN ELECTRONICALLY VERIFIED FINAL REPORT 09/19/2018 1:10 PM - Electronically signed by Jonny Sullivan M.D. NC: HUGO D: ??09/19/2018 1:10 PM T: ??09/19/2018 1:10 PM Report ID: [id number] Reading Location: ??[id number] [EOD] Narrative 09/19/2018 1:13 PM CDT EXAM DESCRIPTION: ??Humerus Right 2 View Min REASON FOR STUDY: ??pt states right arm pain since 09-16-18, no injury TECHNIQUE: ??AP and lateral views were acquired of the right humerus. COMPARISON: ??None available FINDINGS: BONES: No acute fracture. No suspicious bone lesions. SOFT TISSUES: Unremarkable. OTHER: No other significant finding. Procedure Note Provider, MD Kellie - 11/10/2020 EXAM DESCRIPTION: Humerus Right 2 View Min REASON FOR STUDY: pt states right arm pain since 09-16-18, no injury TECHNIQUE: AP and lateral views were acquired of the right humerus. COMPARISON: None available FINDINGS: BONES: No acute fracture. No suspicious bone lesions. SOFT TISSUES: Unremarkable. OTHER: No other significant finding. IMPRESSION: No acute osseous abnormality. THIS IS AN ELECTRONICALLY VERIFIED FINAL REPORT 09/19/2018 1:10 PM - Electronically signed by Jonny Sullivan M.D. NC: HUGO Report ID: [id number] Reading Location: [id number] [EOD] Franny YOUNG IMG XR PROCEDURES Final Result * XR Radius Ulna Right 2 Views (09/19/2018 12:00 AM CDT) Anatomical Region Laterality Modality Upper Extremities, Forearm Right Radio graphic Imaging 09/19/2018 Impressions 09/19/2018 1:14 PM CDT ??No acute osseous abnormality. THIS IS AN ELECTRONICALLY VERIFIED FINAL REPORT 09/19/2018 1:10 PM - Electronically signed by Jonny Sullivan M.D. NC: HUGO D: ??09/19/2018 1:10 PM T: ??09/19/2018 1:10 PM Report ID: [id number] Reading Location: ??[id number] [EOD] Narrative 09/19/2018 1:14 PM CDT EXAM DESCRIPTION: ??Forearm RT 2 View REASON FOR STUDY: ??Right arm pain for 3 days TECHNIQUE: ??Frontal and lateral views of the right forearm were obtained. COMPARISON: ??None FINDINGS: BONES: No acute fracture. No suspicious bone lesions. SOFT TISSUES: Unremarkable. OTHER: No other significant finding. Procedure Note Provider, MD Kellie - 11/10/2020 EXAM DESCRIPTION: Forearm RT 2 View REASON FOR STUDY: Right arm pain for 3 days TECHNIQUE: Frontal and lateral views of the right forearm wereobtained. COMPARISON: None FINDINGS: BONES: No acute fracture. No suspicious bone lesions. SOFT TISSUES: Unremarkable. OTHER: No other significant finding. IMPRESSION: No acute osseous abnormality. THIS IS AN ELECTRONICALLY VERIFIED FINAL REPORT 09/19/2018 1:10 PM - Electronically signed by Jonny ARIAS: HUGO Report ID: [id number] Reading Location: [id number] [EOD] Franny YOUNG IMG XR PROCEDURES Final Result * XR Elbow Right 3 or More Views (09/19/2018 12:00 AM CDT) Anatomical Region Laterality Modality Upper Extremities, Elbow Right Radiogr aphic Imaging 09/19/2018 Impressions 09/19/2018 1:13 PM CDT ??No acute osseous abnormality. THIS IS AN ELECTRONICALLY VERIFIED FINAL REPORT 09/19/2018 1:10 PM - Electronically signed by Jonny Sullivan M.D. NC: HUGO D: ??09/19/2018 1:10 PM T: ??09/19/2018 1:10 PM Report ID: [id number] Reading Location: ??[id number] [EOD] Narrative 09/19/2018 1:13 PM CDT EXAM DESCRIPTION: ??Elbow RT 3 View Min REASON FOR STUDY: ??pt states arm pain since 09-16-18, no injury TECHNIQUE: ??AP, lateral, and oblique radiographic views acquired of the right elbow. COMPARISON: ??None available FINDINGS: BONES/JOINTS: No acute fracture, malalignment or osseous abnormalities.Joint spaces are maintained. SOFT TISSUES: Unremarkable. OTHER: No other significant finding. Procedure Note Provider, MD Kellie - 11/10/2020 EXAM DESCRIPTION: Elbow RT 3 View Min REASON FOR STUDY: pt states arm pain since 09-16-18, no injury TECHNIQUE: AP, lateral, and oblique radiographic views acquired of theright elbow. COMPARISON: None available FINDINGS: BONES/JOINTS: No acute fracture, malalignment or osseousabnormalities.Joint spaces are maintained. SOFT TISSUES: Unremarkable. OTHER: No other significant finding. IMPRESSION: No acute osseous abnormality. THIS IS AN ELECTRONICALLY VERIFIED FINAL REPORT 09/19/2018 1:10 PM - Electronically signed by Jonny Sullivan M.D. NC: HUGO Report ID: [id number] Reading Location: [id number] [EOD] Franny Dolan HECTOR IMG XR PROCEDURES Final Result * XR Shoulder Right 2 or More Views (09/19/2018 12:00 AM CDT) Anatomical Region Laterality Modality Upper Extremities, Shoulder Right Radi ographic Imaging 09/19/2018 Impressions 09/19/2018 1:12 PM CDT ?? 1.No evidence for acute or prominent focal abnormality of the regional bones at the right shoulder. 2.Mild degenerative changes at the glenohumeral joint. 3.Mineralization appears maintained. THIS IS AN ELECTRONICALLY VERIFIED FINAL REPORT 09/19/2018 1:09 PM - Electronically signed by Loy Bermeo WP: D: ??09/19/2018 1:09 PM T: ??09/19/2018 1:09 PM Report ID: [id number] Reading Location: ??[id number] [EOD] Narrative 09/19/2018 1:12 PM CDT EXAM DESCRIPTION: ??Shoulder RT 2Vw Min (STANDARD) REASON FOR STUDY: ??Pain at shoulder. ??Pt states arm pain since 09-16-18, no injury TECHNIQUE: ??Internal rotation, external rotation, and scapular Y views of the right shoulder were obtained. COMPARISON: ??No previous x-ray series of the right shoulder. FINDINGS: BONES/JOINTS: Mineralization of the regional included bones appear intact. No evidence for acute fracture, dislocation, or subluxation of the regional bones. On these images, the AC joint appears maintained. ??No evidence of separation. Also on these images, the glenohumeral relationship appears maintained. There is evidence for mild degenerative change at the glenohumeral joint including spur formation at the inferior glenoid. The subacromial space appears maintained. The other regional included bones appear grossly intact. ??The included right lung appears well aerated. The included soft tissues in limited evaluation appear unremarkable. Procedure Note Provider, MD Kellie - 11/10/2020 EXAM DESCRIPTION: Shoulder RT 2Vw Min (STANDARD) REASON FOR STUDY: Pain at shoulder. Pt states arm pain since 09-16-18, no injury TECHNIQUE: Internal rotation, external rotation, and scapular Y views ofthe right shoulder were obtained. COMPARISON: No previous x-ray series of the right shoulder. FINDINGS: BONES/JOINTS: Mineralization of the regional included bones appearintact. No evidence for acute fracture, dislocation, or subluxation of theregional bones. On these images, the AC joint appears maintained. No evidence ofseparation. Also on these images, the glenohumeral relationship appears maintained. There is evidence for mild degenerative change at the glenohumeral joint including spur formation at the inferior glenoid. The subacromial space appears maintained. The other regional included bones appear grossly intact. The includedright lung appears well aerated. The included soft tissues in limited evaluation appear unremarkable. IMPRESSION: 1.No evidence for acute or prominent focal abnormality of the regionalbones at the right shoulder. 2.Mild degenerative changes at the glenohumeral joint. 3.Mineralization appears maintained. THIS IS AN ELECTRONICALLY VERIFIED FINAL REPORT 09/19/2018 1:09 PM - Electronically signed by Loy Bermeo WP: WP Report ID: [id number] Reading Location: [place] [id number] [EOD] Franny YOUNG IMG XR PROCEDURES Final Result documented in this encounter Visit Diagnoses Not on filedocumented in this encounter Care Teams Assistant Project Manager Relationship Specialty Start Date End Date Franny Dolan PA [address] [place] [address] PCP - General 09/19/18 10/10/18 documented as of this encounter
--- OUTSIDE RECORDS SUMMARY | 2024-06-23 15:27 | XMS_ITS | Encounter Summary ---
Author Organization [facility] Healthcare Address [address] [place] [address] Care Team Providers Care Chief Cardiopulmonary Technologist Name Role Phone Unavailable Primary Care Provider Unavailabl e Encounter Details Date Type Department Care Team (Late st Contact Info) Description 08/31/2012 7:08 AM STRATEGIC SOLUTIONS CONSULTANT Hospital Encounter [facility] Alex Christianson MD [address] [place] [id number] Mixed hyperlipidemia; Benign essential hypertension; Hypothyroidism Social History Tobacco Use Types Packs/Day Years [...] Procedure Name Priority Date/Time Associated Diagnosis Comments THYROID PANEL Routine 08/31/2012 7:20 AM STRATEGIC SOLUTIONS CONSULTANT LIPID PANEL Routine 08/31/2012 7:20 AM STRATEGIC SOLUTIONS CONSULTANT COMPREHENSIVE METABOLIC PANEL Routine 08/31/2012 7:20 AM STRATEGIC SOLUTIONS CONSULTANT documented in this encounter Results * Thyroid Panel (08/31/2012 7:20 AM STRATEGIC SOLUTIONS CONSULTANT) TSH 3.27 0.27 - 4.20 uIU/mL 08/31/2012 8:08 AM STRATEGIC SOLUTIONS CONSULTANT [facility] HISTORICAL RESULTS Free T4 1.19 0.93 - 1.70 ng/dL 08/31/2012 7:20 AM STRATEGIC SOLUTIONS CONSULTANT 08/31/2012 7:24 AM [facility] Narrative [facility] [employer] [facility] HISTORICAL RESULTS - 08/31/2012 8:08 AM STRATEGIC SOLUTIONS CONSULTANT PATIENT HAS BEEN FASTING Alex Browne MD LAB BLOOD ORDERABLES Final Result Performing Organization Address [facility] Co de Phone Number [facility] HISTORICAL RESULTS * (ABNORMAL) Lipid panel (08/31/2012 7:20 AM [facility]) Triglycerides 148 0 - 199 mg/dL Comment:12 hr pc highly samanta mmended for Triglyceride Cholesterol 159 0 - 199 mg/dL Comment: Borderline: ??200-239 High Risk: ?? >239 HDL Cholesterol 61(H) 40 - 60 mg/dL Comment: Major Risk ?< 40 mg/dL Moderate Risk ?40-60 mg/dL Negative Risk ?? > 60 mg/dL LDL Cholesterol, Calc 68 0 - 130 mg/dL Comment:High Risk > 159 mg/d L 08/31/2012 7:20 AM [facility] 08/31/2012 7:24 AM [facility] Valeria [facility] HISTORICAL RESULTS - 08/31/2012 8:05 AM STRATEGIC SOLUTIONS CONSULTANT PATIENT HAS BEEN FASTING Alex Browne MD LAB BLOOD ORDERABLES Final Result Performing Organization Address [facility] Co de Phone Number [facility] HISTORICAL RESULTS * (ABNORMAL) Comprehensive metabolic panel (08/31/2012 7:20 AM [facility]) Sodium 137 135 - 145 mmol/L Potassium 3.6 3.3 - 5.1 mmol/L Chloride 100 96 - 108 mmol/L 08/31/2012 8:05 AM [employer] [facility] [employer] HISTORICAL RESULTS Carbon Dioxide 29 22 - 32 mmol/L 08/31/2012 8:05 AM [employer] [facility] [employer] HISTORICAL RESULTS Anion Gap 8 08/31/2012 8:05 AM [employer] [facility] [employer] [facility] HISTORICAL RESULTS Glucose 113(H) 70 - 110 mg/dL 08/31/2012 8:05 AM [employer] [facility] [employer] [facility] HISTORICAL RESULTS BUN 14 6 - 20 mg/dL 08/31/2012 8:05 AM [employer] [facility] [employer] [facility] HISTORICAL RESULTS Creatinine 0.9 0.5 - 1.1 mg/dL 08/31/2012 8:05 AM [employer] [facility] [employer] HISTORICAL RESULTS Kidney Disease Stage 69 mL/MIN 08/31/2012 8:05 AM [facility] [facility] HISTORICAL RESULTS Comment: NOTE; ??The GFR is [...] Kidney failure or on dialysis @ Calcium 2.48 2.15 - 2.55 mmol/L 08/31/2012 8:05 AM [facility] HISTORICAL RESULTS Total Protein 7.1 6.4 - 8.4 g/dL 08/31/2012 8:05 AM [employer] [facility] [employer] HISTORICAL RESULTS Albumin 4.3 3.5 - 5.2 g/dL 08/31/2012 8:05 AM [employer] [facility] [employer] HISTORICAL RESULTS Globulin 2.8 2.3 - 3.5 gm/dL Albumin/Globulin Ratio 1.5 1.1 - 1.8 Total Bilirubin 0.5 0.0 - 1.2 mg/dL 08/31/2012 8:05 AM STRATEGIC SOLUTIONS CONSULTANT [facility] HISTORICAL RESULTS AST 28 0 - 32 U/L ALT 47(H) 0 - 31 U/L Alkaline Phosphatase 87 35 - 104 U/L 08/31/2012 7:20 AM STRATEGIC SOLUTIONS CONSULTANT 08/31/2012 7:24 AM [facility] Narrative [facility] HISTORICAL RESULTS - 08/31/2012 8:05 AM STRATEGIC SOLUTIONS CONSULTANT PATIENT HAS BEEN FASTING Alex Browne MD LAB BLOOD ORDERABLES Final Result [facility] HISTORICAL RESULTS documented in this encounter Visit Diagnoses Diagnosis Mixed hyperlipidemia Benign essential hypertension Essential hypertension, benign Hypothyroidism Unspecified hypothyroidism documented in this encounter
--- OUTSIDE RECORDS SUMMARY | 2024-06-23 15:27 | XMS_ITS | Encounter Summary ---
Author Organization [facility] Address [address] [place] [address] Care Team Providers Care Expressive Art Therapist Name Role Phone Alex Browne MD Primary Care Provider [phone] Encounter Details Date Type Department Care Team (Late st Contact Info) Description 04/10/2018 8:41 AM CDT Hospital Encounter [facility] Alex Browne MD [address] [place] [phone] Abnormal levels of other serum enzymes; Essential (primary) hypertension; Hypothyroidism Social History Tobacco Use Types [...] Date/Time Associated Diagnosis Comments THYROID PANEL Routine 04/10/2018 9:00 AM CDT PROTEIN ELECTROPHORESIS, WITH REFLEX, SERUM Routine 04/10/2018 9:00 AM CDT documented in this encounter Results * Protein Electrophoresis, With Reflex, Serum (04/10/2018 9:00 AM CDT) Albumin (PEP) 4.18 3.75 - 5.01 g/dL Yuyue-8-Lkirctavr 0.24 0.19 - 0.46 g/dL Yuuex-9-Ntjpnpogu 0.77 0.48 - 1.05 g/dL Beta Globulins 0.78 0.48 - 1.10 g/dL Gamma Globulins 1.23 0.62 - 1.51 g/dL Total protein SPE 7.20 6.00 - 8.30 g/dL SPE Interp See Note Comment: Normal SPEP pattern. ??Immunofixation electrophoresis (STUART) ?? is a more sensitive technique for the identification of ?? small M-proteins. ?? SPE EER See Note Comment: Access Glopho Enhanced Report using either link below: ?? -Direct access: ?? [email or web address] ?? -Enter Username, Password: [email or web address] ?? Username: [email or web address] ?? Password: [email or web address] ?? Performed by [employer], ?? [address] [place] [address],[place] [address] ?? [email or web address] Yellow Pages, Silver Ayon MD, Lab. Director ?? 04/10/2018 9:00 AM CDT 04/10/2018 9:20 AM CDT us Alex Browne MD LAB BLOOD ORDERABLES Final Result [facility] HISTORICAL RESULTS * Thyroid Panel (04/10/2018 9:00 AM CDT) TSH 0.50 0.27 - 4.20 uIU/mL Free T4 1.27 0.93 - 1.70 ng/dL 04/10/2018 9:00 AM CDT 04/10/2018 9:20 AM CDT us Alex Browne MD LAB BLOOD ORDERABLES Final Result [facility] HISTORICAL RESULTS documented in this encounter Visit Diagnoses Diagnosis Abnormal levels of other serum enzymes Essential (primary) hypertension Unspecified essential hypertension Hypothyroidism Unspecified hypothyroidism documented in this encounter Care Teams Expressive Art Therapist Relationship Specialty Start Date End Date Alex Browne MD PCP - General 06/23/17 09/18/18 documented as of this encounter
--- OUTSIDE RECORDS SUMMARY | 2024-06-23 15:27 | XMS_ITS | Encounter Summary ---
Author Organization [facility] Address [address] [place] [address] Phone Care Team Providers Care Medical Care Administrator Name Role Phone Alex Browne MD Primary Care Provider [phone] Reason for Visit * Reason Onset Date Comments Vaginitis/Bacterial Vaginosis 03/06/2020 Encounter Details Date Type Department Care Team (Late st Contact Info) Description 03/06/2020 Telephone [facility] Otolaryngology [address] [place] [phone] Raina Wolff Vaginitis/Bacterial Vaginosis Social History Tobacco Use Types Packs/Day Years [...] Refills Last Filled Start Date End Date fluconazole (Diflucan) 150 mg tabletIndications:A cute recurrent maxillary sinusitis 1 tab po bid 2 tablet 03/06/2020 11/29/2021 documented in this encounter Miscellaneous Notes * Telephone Encounter - Raina Wolff - 03/06/2020 12:30 PM CDT Patient was given an antibiotic from Dr. Delong and now has a yeast infection, she is asking for Diflucan to be sent out to her pharmacy. That was taken care of. documented in this encounter Plan of Treatment Not on file documented as of this encounter Visit Diagnoses Diagnosis Acute recurrent maxillary sinusitis documented in this encounter Discontinued Medications Medication Sig Discontinue Reason Start Date End Da te fluconazole (Diflucan) 150 mg tabletIndications:Acute recurrent maxillary sinusitis 1 tab po bid Reorder 02/20/2020 documented as of this encounter Care Teams Medical Care Administrator Relationship Specialty Start Date End Date Alex Browne MD [address] [place] [id number] PCP - General 10/11/18 11/21/22 documented as of this encounter
--- OUTSIDE RECORDS SUMMARY | 2024-06-23 15:27 | XMS_ITS | Encounter Summary ---
Author Organization [facility] Healthcare Address [address] [place] [address] Care Team Providers Care Silk Screen Frame Assembler Name Role Phone Alex Browne MD Primary Care Provider + [phone] Franny Dolan Primary Care Provider [phone] Alex Browne MD Primary Care Provider + [phone] Encounter Details Date Type Department Care Team (Late st Contact Info) Description 03/29/2018 8:30 AM CDT - 04/25/2019 11:59 PM CDT Hospital Encounter [facility] Eric Gonzalez MD [address] [facility] [address] [address] Social History Tobacco Use Types Packs/Day Years [...] on filedocumented in this encounter Care Teams Silk Screen Frame Assembler Relationship Specialty Start Date End Date Alex Browne MD PCP - General 06/23/17 09/18/18 Franny Dolan PA [address] [place] [address] PCP - General 09/19/18 10/10/18 Alex Browne MD [address] [place] [address] PCP - General 10/11/18 11/21/22 documented as of this encounter
--- OUTSIDE RECORDS SUMMARY | 2024-06-23 15:27 | XMS_ITS | Encounter Summary ---
Author Organization [facility] Healthcare Address [address] [place] [address] Care Team Providers Care Licensed Mental Health Professional Name Role Phone Unavailable Primary Care Provider Unavailabl e Encounter Details Date Type Department Care Team (Late st Contact Info) Description 09/27/2016 12:10 PM CDT Hospital Encounter [facility] Jeffrey Weiss MD [address] [address] Encounter for screening mammogram for malignant neoplasm of breast; Encounter for screening for osteoporosis; Other specified disorders of bone density and structure, other site; Family history of malignant neoplasm of breast; Solitary cyst of right breast; Asymptomatic menopausal state Social History Tobacco Use Types Packs/Day Years [...] Procedure Name Priority Date/Time Associated Diagnosis Comments GENERAL RADIOLOGY REPORT 09/28/2016 12:00 AM CDT DEXA AXIAL SKELETON BONE DENSITY 1 OR MORE SITES Routine 09/27/2016 12:13 PM CDT SCREENING MAMMOGRAM BILATERAL W JUAN Routine 09/27/2016 12:12 PM CDT GENERAL RADIOLOGY REPORT 09/27/2016 12:00 AM CDT GENERAL RADIOLOGY REPORT 09/27/2016 12:00 AM CDT documented in this encounter Results * GENERAL RADIOLOGY REPORT (09/28/2016 12:00 AM CDT) Anatomical Region Laterality Modality Radiographic Liz ging Narrative 09/28/2016 12:00 AM CDT Ordered by an unspecified provider. us Historical Provider MD RAO XR PROCEDURES Final R esult * Dexa Axial Skeleton Bone Density 1 [...] not result from significant trauma. COMPARISON(S): None. AUTO BODY SERVICE MECHANIC/MODEL: ??Huayi ([id number]). FINDINGS: AP lumbar spine ??L1-L4 Total BMD is 0.918 g/dr1B-knfho is -1.2 Left Hip Total BMD is 1.015 g/gk6Y-yglzs is 0.6 Neck BMD is 0.772 g/qb3N-yuwge is -0.7 Procedure Note Provider, MD Kellie - 11/10/2020 EXAMINATION: DXA Bone Density Examination (Hip and Spine). HISTORY: 61-year-old post menopausal female with a stated history of osteoporosis. Current Height: 65.5 inches Maximum Height: 65.5 inches Weight: 275 pounds RISK FACTORS: History of a fracture as an adult which did not result from significant trauma. COMPARISON(S): None. AUTO BODY SERVICE MECHANIC/MODEL: Huayi ([id number]). FINDINGS: AP lumbar spine L1-L4 Total BMD is 0.918 g/es8E-znqba is -1.2 Left Hip Total BMD is 1.015 g/mx5G-wffdm is 0.6 Neck BMD is 0.772 g/es8J-owmnd is -0.7 IMPRESSION: 1. Low bone mass [...] PM: Lowell Kidd M.D. Lowell Kidd M.D. AB: 01:48 PM 01:48 PM BM [EOD] us Jeffrey Staples MD IMG DXA PROCEDURES Final Re sult * Screening Mammogram Bilateral W Juan (09/27/2016 12:12 PM CDT) Anatomical Region Laterality [...] next screening exam. Electronically signed by: Lowell patel/penrad:09/27/2016 13:55:58 ?? Cash Posting Specialist: Kathy Newby RT (Any)(Alex), [facility] letter sent: Normal Exam ?? Reading [...] exams dated: ??09/25/2015 mammogram, 06/02/2014 mammogram - [facility], 05/10/2013 mammogram - [facility], and 05/14/2012 mammogram - [facility]. ?? BREAST TISSUE: The tissue of [...] to exams dated: 09/25/2015 mammogram,06/02/2014 mammogram - [facility], 05/10/2013 mammogram - [facility],and 05/14/2012 mammogram - [facility]. BREAST TISSUE: The tissue of both [...] signed by: Lowell Kidd M.D. ab/penrad:09/27/2016 13:55:58 Cash Posting Specialist: Kathy DUCKWORTH (Any)(M), [facility] letter sent: Normal Exam Reading location: BI-RADS: 2 Benign [EOD] us Jeffrey Staples MD IMG MAMMO PROCEDURES Final Result * GENERAL RADIOLOGY REPORT (09/27/2016 12:00 AM CDT) Anatomical Region Laterality Modality Radiographic Liz ging Narrative 09/27/2016 12:00 AM CDT Ordered by an unspecified provider. Historical Provider IMG XR PROCEDURES Final R esult * GENERAL RADIOLOGY REPORT (09/27/2016 12:00 AM CDT) Anatomical Region Laterality Modality Radiographic Liz ging Narrative 09/27/2016 12:00 AM CDT Ordered by an unspecified provider. Historical Provider IMG XR PROCEDURES Final R esult documented in this encounter Visit Diagnoses Diagnosis Encounter for screening mammogram for malignant neoplasm of breast Encounter for screening for osteoporosis Other specified disorders of bone density and structure, other site Family history of malignant neoplasm of breast Solitary cyst of right breast Asymptomatic menopausal state documented in this encounter
--- OUTSIDE RECORDS SUMMARY | 2024-06-23 15:27 | XMS_ITS | Encounter Summary ---
Author Organization [facility] Healthcare Address [address] [place] [address] Care Team Providers Care Electronic Induction Hardener Name Role Phone Alex Browne MD Primary Care Provider [phone]- [phone] Encounter Details Date Type Department Care Team (Late st Contact Info) Description 07/28/2017 6:59 AM TRANSFORMER ASSEMBLY SUPERVISOR Hospital Encounter [facility] Alex Browne MD [address] [place] [id number] Pneumonia Social History Tobacco Use Types Packs/Day Years [...] Date/Time Associated Diagnosis Comments CBC WITH AUTO DIFFERENTIAL Routine 07/28/2017 7:18 AM TRANSFORMER ASSEMBLY SUPERVISOR documented in this encounter Results * (ABNORMAL) CBC with auto differential (07/28/2017 7:18 AM TRANSFORMER ASSEMBLY SUPERVISOR) WBC 5.9 3.5 - 10.5 x10 3/ul 07/28/2017 7:25 AM TRANSFORMER ASSEMBLY SUPERVISOR [facility] HISTORICAL RESULTS Comment:New Reference Range in use 07/13/17. RBC 5.54(H) 3.76 - 4.80 x10 6/ul 07/28/2017 7:25 AM TRANSFORMER ASSEMBLY SUPERVISOR [facility] HISTORICAL RESULTS Hemoglobin 15.9(H) 11.0 - 15.0 g/dL 07/28/2017 7:25 AM [employer] HISTORICAL RESULTS Hct 47.9(H) 33.0 - 43.0 % 07/28/2017 7:25 AM TRANSFORMER ASSEMBLY SUPERVISOR [employer] HISTORICAL RESULTS MCV 86.5 80.0 - 97.0 fl 07/28/2017 7:25 AM TRANSFORMER ASSEMBLY SUPERVISOR [employer] HISTORICAL RESULTS MCH 28.7 27.0 - 31.2 pg 07/28/2017 7:25 AM [employer] HISTORICAL RESULTS MCHC 33.2 31.8 - 35.4 g/dl 07/28/2017 7:25 AM [employer] HISTORICAL RESULTS RDW 13.3 11.6 - 14.8 % 07/28/2017 7:25 AM [employer] HISTORICAL RESULTS Plt Count 262 150 - 450 X10 3/ul 07/28/2017 7:25 AM [employer] HISTORICAL RESULTS Comment:New Reference Range in use 07/13/17. MPV 9.1 7.4 - 10.4 fl 07/28/2017 7:25 AM [employer] HISTORICAL RESULTS Neut % 68.2 37.0 - 85.0 % 07/28/2017 7:25 AM [employer] HISTORICAL RESULTS Immature Gran % 0.7 0.0 - 3.0 % 07/28/2017 7:25 AM [employer] HISTORICAL RESULTS Lymph % 21.0 5.0 - 45.0 % 07/28/2017 7:25 AM [employer] HISTORICAL RESULTS [place] % 8.0 3.0 - 15.0 % 07/28/2017 7:25 AM [employer] HISTORICAL RESULTS Eos % 1.2 0.0 - 7.0 % 07/28/2017 7:25 AM [employer] HISTORICAL RESULTS Baso % 0.9 0.0 - 2.0 % 07/28/2017 7:25 AM [employer] HISTORICAL RESULTS Absolute Neuts (auto) 4.0 1.7 - 8.7 x10 3/ul 07/28/2017 7:25 AM [employer] HISTORICAL RESULTS Immature Gran # 0.0 0.0 - 0.3 x10 3/ul 07/28/2017 7:25 AM [employer] HISTORICAL RESULTS Absolute Lymphs (auto) 1.2 0.2 - 4.6 x10 3/ul 07/28/2017 7:25 AM TRANSFORMER ASSEMBLY SUPERVISOR [facility] [employer] HISTORICAL RESULTS Absolute Monos (auto) 0.5 0.1 - 1.5 x10 3/ul 07/28/2017 7:25 AM TRANSFORMER ASSEMBLY SUPERVISOR [facility] HISTORICAL RESULTS Absolute Eos (auto) 0.1 0.0 - 0.7 x10 3/ul 07/28/2017 7:25 AM TRANSFORMER ASSEMBLY SUPERVISOR [facility] HISTORICAL RESULTS Absolute Basos (auto) 0.1 0.0 - 0.2 x10 3/ul 07/28/2017 7:25 AM TRANSFORMER ASSEMBLY SUPERVISOR [facility] HISTORICAL RESULTS Nucleat RBC Rel Count 0.0 0 - 3 #/100WBC 07/28/2017 7:25 AM TRANSFORMER ASSEMBLY SUPERVISOR [facility] HISTORICAL RESULTS Absolute Nucleated RBC 0.00 x10 3/ul 07/28/2017 7:25 AM TRANSFORMER ASSEMBLY SUPERVISOR [facility] HISTORICAL RESULTS Absolute Neutrophils 4000 200 - 8000 /ul 07/28/2017 7:25 AM TRANSFORMER ASSEMBLY SUPERVISOR [facility] HISTORICAL RESULTS 07/28/2017 7:18 AM TRANSFORMER ASSEMBLY SUPERVISOR 07/28/2017 7:23 AM TRANSFORMER ASSEMBLY SUPERVISOR us Alex Browne MD LAB BLOOD ORDERABLES Final Result [facility] HISTORICAL RESULTS documented in this encounter Visit Diagnoses Diagnosis Pneumonia Pneumonia, organism unspecified documented in this encounter Care Teams Electronic Induction Hardener Relationship Specialty Start Date End Date Alex Browne MD PCP - General 06/23/17 09/18/18 documented as of this encounter
--- OUTSIDE RECORDS SUMMARY | 2024-06-23 15:27 | XMS_ITS | Encounter Summary ---
Author Organization [facility] Address [address] [place] [address] Care Team Providers Care Moth Proofer Name Role Phone Alex Browne MD Primary Care Provider +1- [phone] Encounter Details Date Type Department Care Team (Latest Contact Info) Description 02/27/2018 7:05 AM CDT Hospital Encounter [facility] Basil Staley, DO [address] [address] Secondary polycythemia; Abnormal levels of other serum enzymes Social History Tobacco Use Types Packs/Day Years [...] Name Priority Date/Time Associated Diagnosis Comments US ABDOMEN COMPLETE W LIVER DOPPLER (C) Routine 02/27/2018 7:56 AM CDT US ABDOMEN COMPLETE Routine 02/27/2018 7 :08 AM CDT documented in this encounter Results * US Abdomen Complete W Liver Doppler (C) (02/27/2018 7:56 AM CDT) Anatomical Region Laterality Modality Abdomen Right Ultrasound 02/27/2018 7:56 AM CDT Impressions 02/27/2018 8:24 AM CDT ?? 1.Diffuse hepatic steatosis. 2.Status post cholecystectomy. ??No biliary ductal dilation. 3.Normal sonographic appearance of the spleen and bilateral kidneys. THIS IS AN ELECTRONICALLY VERIFIED FINAL REPORT 02/27/2018 8:21 AM - Electronically signed by Lowell Kidd M.D. AB: D: ??02/27/2018 8:21 AM T: ??02/27/2018 8:21 AM Report ID: [id number] Reading Location: ??[id number] [EOD] Narrative 02/27/2018 8:24 AM CDT EXAM DESCRIPTION: ??US Abdomen Comp/All Main Organ; US Duplex Scan Limited REASON FOR STUDY: ??Polycythemia. ??Abnormal liver function tests for 1 year. TECHNIQUE: ??Dynamic and static images acquired of the abdomen and recorded on PACS. Additional selected color Doppler and spectral images recorded. COMPARISON: ??None available. FINDINGS: PANCREAS: The pancreas is unremarkable on limited evaluation. ??The portions of the pancreas are obscured by bowel gas. LIVER: The liver is smooth in contour and homogeneously hyperechoic in echotexture. ??The liver measures 19.0 cm in length. ??There is no evidence of a focal liver lesion. GALLBLADDER: The gallbladder is surgically absent. BILIARY: There is no intrahepatic or extrahepatic biliary ductal dilatation. ?? The common bile duct measures 3 mm in diameter. INFERIOR VENA CAVA: Normal flow. AORTA: No aneurysm. RIGHT KIDNEY: The right kidney measures 10.5 cm in length. ??Right renal cortical thickness and echogenicity are normal. ??There is no evidence of a suspicious right renal parenchymal lesion. ??There is no right hydronephrosis. LEFT KIDNEY: The left kidney measures 10.5 cm in length. ??Left renal cortical thickness and echogenicity are normal. ??There is no evidence of a suspicious left renal parenchymal lesion. ??There is no left hydronephrosis. SPLEEN: The spleen measures 12.7 cm in length and is normal in appearance. PERITONEAL AND PLEURAL SPACES: No ascites or effusions. OTHER: There is normal hepatopetal flow in the main portal vein. Procedure Note Provider, MD Kellie - 11/10/2020 EXAM DESCRIPTION: US Abdomen Comp/All Main Organ; US Duplex ScanLimited REASON FOR STUDY: Polycythemia. Abnormal liver function tests for 1year. TECHNIQUE: Dynamic and static images acquired of the abdomen and recordedon PACS. Additional selected color Doppler and spectral images recorded. COMPARISON: None available. FINDINGS: PANCREAS: The pancreas is unremarkable on limited evaluation. Theportions of the pancreas are obscured by bowel gas. LIVER: The liver is smooth in contour and homogeneously hyperechoic in echotexture. The liver measures 19.0 cm in length. There is no evidenceof a focal liver lesion. GALLBLADDER: The gallbladder is surgically absent. BILIARY: There is no intrahepatic or extrahepatic biliary ductaldilatation. The common bile duct measures 3 mm in diameter. INFERIOR VENA CAVA: Normal flow. AORTA: No aneurysm. RIGHT KIDNEY: The right kidney measures 10.5 cm in length. Right renal cortical thickness and echogenicity are normal. There is no evidence of a suspicious right renal parenchymal lesion. There is no righthydronephrosis. LEFT KIDNEY: The left kidney measures 10.5 cm in length. Left renalcortical thickness and echogenicity are normal. There is no evidence of asuspicious left renal parenchymal lesion. There is no left hydronephrosis. SPLEEN: The spleen measures 12.7 cm in length and is normal inappearance. PERITONEAL AND PLEURAL SPACES: No ascites or effusions. OTHER: There is normal hepatopetal flow in the main portal vein. IMPRESSION: 1.Diffuse hepatic steatosis. 2.Status post cholecystectomy. No biliary ductal dilation. 3.Normal sonographic appearance of the spleen and bilateral kidneys. THIS IS AN ELECTRONICALLY VERIFIED FINAL REPORT 02/27/2018 8:21 AM - Electronically signed by Lowell Kidd M.D. AB: Report ID: [id number] Reading [id number] us Basil Staley DO IMG US PROCEDURES Final Resul t * US Abdomen Complete (02/27/2018 7:08 AM CDT) Anatomical Region Laterality Modality Abdomen N/A Ultrasound 02/27/2018 7:08 AM CDT Impressions 02/27/2018 8:24 AM CDT ?? 1.Diffuse hepatic steatosis. 2.Status post cholecystectomy. ??No biliary ductal dilation. 3.Normal sonographic appearance of the spleen and bilateral kidneys. THIS IS AN ELECTRONICALLY VERIFIED FINAL REPORT 02/27/2018 8:21 AM - Electronically signed by Lowell Kidd M.D. AB: D: ??02/27/2018 8:21 AM T: ??02/27/2018 8:21 AM Report ID: [id number] Reading Location: ??[id number] [EOD] Narrative 02/27/2018 8:24 AM CDT EXAM DESCRIPTION: ??US Abdomen Comp/All Main Organ; US Duplex Scan Limited REASON FOR STUDY: ??Polycythemia. ??Abnormal liver function tests for 1 year. TECHNIQUE: ??Dynamic and static images acquired of the abdomen and recorded on PACS. Additional selected color Doppler and spectral images recorded. COMPARISON: ??None available. FINDINGS: PANCREAS: The pancreas is unremarkable on limited evaluation. ??The portions of the pancreas are obscured by bowel gas. LIVER: The liver is smooth in contour and homogeneously hyperechoic in echotexture. ??The liver measures 19.0 cm in length. ??There is no evidence of a focal liver lesion. GALLBLADDER: The gallbladder is surgically absent. BILIARY: There is no intrahepatic or extrahepatic biliary ductal dilatation. ?? The common bile duct measures 3 mm in diameter. INFERIOR VENA CAVA: Normal flow. AORTA: No aneurysm. RIGHT KIDNEY: The right kidney measures 10.5 cm in length. ??Right renal cortical thickness and echogenicity are normal. ??There is no evidence of a suspicious right renal parenchymal lesion. ??There is no right hydronephrosis. LEFT KIDNEY: The left kidney measures 10.5 cm in length. ??Left renal cortical thickness and echogenicity are normal. ??There is no evidence of a suspicious left renal parenchymal lesion. ??There is no left hydronephrosis. SPLEEN: The spleen measures 12.7 cm in length and is normal in appearance. PERITONEAL AND PLEURAL SPACES: No ascites or effusions. OTHER: There is normal hepatopetal flow in the main portal vein. Procedure Note Provider, MD Kellie - 11/10/2020 EXAM DESCRIPTION: US Abdomen Comp/All Main Organ; US Duplex ScanLimited REASON FOR STUDY: Polycythemia. Abnormal liver function tests for 1year. TECHNIQUE: Dynamic and static images acquired of the abdomen and recordedon PACS. Additional selected color Doppler and spectral images recorded. COMPARISON: None available. FINDINGS: PANCREAS: The pancreas is unremarkable on limited evaluation. Theportions of the pancreas are obscured by bowel gas. LIVER: The liver is smooth in contour and homogeneously hyperechoic in echotexture. The liver measures 19.0 cm in length. There is no evidenceof a focal liver lesion. GALLBLADDER: The gallbladder is surgically absent. BILIARY: There is no intrahepatic or extrahepatic biliary ductaldilatation. The common bile duct measures 3 mm in diameter. INFERIOR VENA CAVA: Normal flow. AORTA: No aneurysm. RIGHT KIDNEY: The right kidney measures 10.5 cm in length. Right renal cortical thickness and echogenicity are normal. There is no evidence of a suspicious right renal parenchymal lesion. There is no righthydronephrosis. LEFT KIDNEY: The left kidney measures 10.5 cm in length. Left renalcortical thickness and echogenicity are normal. There is no evidence of asuspicious left renal parenchymal lesion. There is no left hydronephrosis. SPLEEN: The spleen measures 12.7 cm in length and is normal inappearance. PERITONEAL AND PLEURAL SPACES: No ascites or effusions. OTHER: There is normal hepatopetal flow in the main portal vein. IMPRESSION: 1.Diffuse hepatic steatosis. 2.Status post cholecystectomy. No biliary ductal dilation. 3.Normal sonographic appearance of the spleen and bilateral kidneys. THIS IS AN ELECTRONICALLY VERIFIED FINAL REPORT 02/27/2018 8:21 AM - Electronically signed by Lowell Kidd M.D. AB: Report ID: [id number] Reading Location: [place] [address] [EOD] us Basil Staley DO IMG US PROCEDURES Final Resul t documented in this encounter Visit Diagnoses Diagnosis Secondary polycythemia Polycythemia, secondary Abnormal levels of other serum enzymes documented in this encounter Care Teams Moth Proofer Relationship Specialty Start Date End Date Alex Browne MD PCP - General 06/23/17 09/18/18 documented as of this encounter
--- OUTSIDE RECORDS SUMMARY | 2024-06-23 15:27 | XMS_ITS | Encounter Summary ---
Author Organization [facility] Healthcare Address [address] [place] [address] Care Team Providers Care Parking Analyst Name Role Phone Unknown, Notinfile Primary Care Provider Unavail able Encounter Details Date Type Department Care Team (Latest Contact Info) Description 06/02/2017 10:24 AM JUNIOR STAFF ACCOUNTANT - 06/02/2017 11:59 PM JUNIOR STAFF ACCOUNTANT Hospital Encounter [facility] [phone] Jennyfer Figueroa MD [address] [facility] [address] [place] [address] Discharge Disposition: Discharge to home or self [...] Procedure Name Priority Date/Time Associated Diagnosis Comments CELL COUNT AND DIFFERENTIAL, SYNOVIAL FLUID Routine Gen Lab 06/02/2017 10:24 AM JUNIOR STAFF ACCOUNTANT BODY FLUID CRYSTAL Routine Gen Lab 06/02/2017 10 :24 AM JUNIOR STAFF ACCOUNTANT DISCHARGE LABORATORY CUMULATIVE REPORT 06/02/2017 12:00 AM JUNIOR STAFF ACCOUNTANT documented in this encounter Results * (ABNORMAL) Cell count and differential, synovial fluid (06/02/2017 10:24 AM JUNIOR STAFF ACCOUNTANT) Body site, fld Right Knee [facility] Color, synovial fld Yellow(A) [facility] Clarity, fld Cloudy(A) [facility] RBC, syn fld 561 cells/mcL [facility] Nucleated cells, synovial fld 327(H) 0 - 149 cells/mcL [facility] Cells diffd, synovial fld 100 Cells [facility] Neutrophils, fld 6 0 - 24 % [facility] Lymphs, fld 57 0 - 74 % [facility] [place]/Macrophag e Synovial 19 0 - 69 % [facility] Synovial cells, fld 18(H) 0 - 0 % [facility] Body fluid 06/02/2017 10:2 4 AM JUNIOR STAFF ACCOUNTANT 06/02/2017 4:09 PM JUNIOR STAFF ACCOUNTANT Narrative [facility] - 06/02/2017 8:35 PM JUNIOR STAFF ACCOUNTANT us Jennyfer Figueroa MD LAB BODY FLUIDS AND STOOLS O RDERABLES Final Result Performing Organization Address City/[facility]/ZIP Co de Phone Number [facility] Department [place] [address] * Crystal analysis, body fluid (06/02/2017 10:24 AM JUNIOR STAFF ACCOUNTANT) Specimen type, fld Synovial [facility] Body site, fld Right Knee [facility] Crystals None Seen None Seen [facility] Body fluid 06/02/2017 10:2 4 AM JUNIOR STAFF ACCOUNTANT 06/02/2017 4:09 PM JUNIOR STAFF ACCOUNTANT Narrative [facility] 06/02/2017 8:35 PM JUNIOR STAFF ACCOUNTANT us Jennyfer Figueroa MD LAB BODY FLUIDS AND STOOLS O RDERABLES Final Result [facility] [place] [address] * DISCHARGE LABORATORY CUMULATIVE REPORT (06/02/2017 12:00 AM JUNIOR STAFF ACCOUNTANT) Narrative 06/02/2017 12:00 AM JUNIOR STAFF ACCOUNTANT Ordered by an unspecified provider. us Historical Provider LAB BLOOD ORDERABLES Re l Result documented in this encounter Visit Diagnoses Not on filedocumented in this encounter Care Teams Parking Analyst Relationship Specialty Start Date End Date Unknown, Notinfile PCP - General 06/02/17 06/22/17 documented as of this encounter
--- OUTSIDE RECORDS SUMMARY | 2024-06-23 15:27 | XMS_ITS | Encounter Summary ---
Author Organization [facility] Healthcare Address [address] [place] [address] Care Team Providers Care Database Analyst Name Role Phone Unknown, Notinfile Primary Care Provider Unavail able Encounter Details Date Type Department Care Team (Latest Contact Info) Description 04/27/2017 8:52 AM CDT - 04/27/2017 11:59 PM CDT Hospital Encounter [facility] OP INTERIM [phone] Betsy Molina, DIRECTOR OF KIDS [address] [facility] [address] [place] [address] Discharge Disposition: Discharge to home or self [...] Procedure Name Priority Date/Time Associated Diagnosis Comments CYCLIC CITRUL PEPTIDE ANTIBODY, IGG Routine Gen Lab 04/27/2017 8:52 AM CDT ERYTHROCYTE SEDIMENTATION RATE Routine Gen Lab 04/27/2017 8:52 AM CDT ANTITHROMBIN Routine Gen Lab 04/27/2017 8:52 AM CDT SAPNA SCREEN Routine Gen Lab 04/27/2017 8:52 AM CDT DISCHARGE LABORATORY CUMULATIVE REPORT 04/27/2017 12:00 AM CDT documented in this encounter Results * SAPNA screen (04/27/2017 8:52 AM CDT) [facility] SAPNA Negative Negative [facility] Comment: Interpretive Data Normal range for Sapna Qualitative Antibody = Negative. 1. ??SPANA titers are performed on all positive qualitative results. 2. ??A significantly positive SAPNA result is defined as a positive nuclear fluorescence at a titer of 1:80 or greater. 3. ??15% of normal people above age 65 have significantly positive SAPNA results. ??5% or less of normal people age 65 or under have significantly positive SAPNA results. Current interpretive data was last revised on 03. Blood specimen (specimen) 04/27/2017 8:52 AM CDT 04/27/2017 12:02 PM CDT Betsy Molina NP LAB BLOOD ORDERABLES Fi nal Result Performing Organization Address [facility] Co de Phone Number [facility] Department [place] [place] [address] * Cyclic citrul peptide antibody, IgG (04/27/2017 8:52 AM CDT) [facility] CCP Ab 0.7 <=2.9 units/mL [facility] Comment: Interpretive data Negative: <3 units/mL Positive: > or equal to 3 units/mL Current interpretive data was last revised on 2016. Blood specimen (specimen) 04/27/2017 8:52 AM CDT 04/27/2017 12:02 PM CDT Betsy Molina NP LAB BLOOD ORDERABLES Fi nal Result Performing Organization Address [facility] Co de Phone Number [facility] [place] [address] * (ABNORMAL) Antithrombin (04/27/2017 8:52 AM CDT) [facility] Rheumatoid factor, quant <10.0(L) 0.1 - 15.0 IUnits/mL [facility] Blood specimen (specimen) 04/27/2017 8:52 AM CDT 04/27/2017 12:02 PM CDT Betsy Molina DIRECTOR OF KIDS LAB BLOOD ORDERABLES Fi nal Result Performing Organization Address City/[facility]/ZIP Co de Phone Number [facility] Department [place] [address] * Erythrocyte sedimentation rate (04/27/2017 8:52 AM CDT) [facility] Erythrocyte sedimentation rate 7 0 - 35 mm/H [facility] Blood specimen (specimen) 04/27/2017 8:52 AM CDT 04/27/2017 12:02 PM CDT Betsy Molina NP LAB BLOOD ORDERABLES Fi nal Result Performing Organization Address [facility] de Phone Number [facility] [place] [address] * DISCHARGE LABORATORY CUMULATIVE REPORT (04/27/2017 12:00 AM CDT) Narrative 04/27/2017 12:00 AM CDT Ordered by an unspecified provider. Historical Provider LAB BLOOD ORDERABLES Re l Result documented in this encounter Visit Diagnoses Not on filedocumented in this encounter Care Teams Database Analyst Relationship Specialty Start Date End Date Unknown, Notinfile PCP - General 04/27/17 05/03/17 documented as of this encounter
--- OUTSIDE RECORDS SUMMARY | 2024-06-23 15:27 | XMS_ITS | Encounter Summary ---
Author Organization [facility] Healthcare Address [address] [place] [address] Care Team Providers Care Electronics Utility Worker Name Role Phone Unknown, Notinfile Primary Care Provider Unavail able Encounter Details Date Type Department Care Team (Late st Contact Info) Description 06/14/2017 11:25 AM INVENTORY MANAGEMENT SPECIALIST Hospital Encounter [facility] Alex Browne MD [address] [place] [id number] Impaired fasting glucose; Nonspecific elevation of levels of transaminase and lactic acid dehydrogenase (LDH) Social History Tobacco Use Types Packs/Day Years [...] Procedure Name Priority Date/Time Associated Diagnosis Comments HEMOGLOBIN A1C Routine 06/14/2017 11:37 AM INVENTORY MANAGEMENT SPECIALIST COMPREHENSIVE METABOLIC PANEL Routine 06/14/2017 11:37 AM INVENTORY MANAGEMENT SPECIALIST documented in this encounter Results * Hemoglobin A1c (06/14/2017 11:37 AM INVENTORY MANAGEMENT SPECIALIST) Hemoglobin A1c % 5.5 4.8 - 5.9 % 06/14/2017 1:54 PM INVENTORY MANAGEMENT SPECIALIST [facility] HISTORICAL RESULTS Comment: [place] [employer] recommends that the goal of therapy should be an A1C hemoglobin of <7%. Reevaluate the treatment regimen in patients with an A1C >8%. 06/14/2017 11:3 7 AM INVENTORY MANAGEMENT SPECIALIST 06/14/2017 11:39 AM INVENTORY MANAGEMENT SPECIALIST us Alex Browne MD LAB BLOOD ORDERABLES Final Result [facility] HISTORICAL RESULTS * (ABNORMAL) Comprehensive metabolic panel (06/14/2017 11:37 AM INVENTORY MANAGEMENT SPECIALIST) Sodium 140 135 - 145 mmol/L 06/14/2017 12:04 PM INVENTORY MANAGEMENT SPECIALIST [facility] HISTORICAL RESULTS Potassium 4.0 3.3 - 5.1 mmol/L 06/14/2017 12:04 PM INVENTORY MANAGEMENT SPECIALIST [facility] HISTORICAL RESULTS Chloride 101 96 - 108 mmol/L Carbon Dioxide 29 22 - 32 mmol/L Anion Gap 10 7 - 16 Glucose 119(H) 70 - 100 mg/dL BUN 11 8 - 23 mg/dL Creatinine 0.8 0.5 - 1.1 mg/dL Comment: NOTE: Estimated GFR (Cockroft-Gault) will NOT be calculated unless patient Height and Weight were entered. Also, Kidney Disease Stage (GFR) and Estimated GFR (Cockroft-Gault) will NOT be calculated if Creatinine result is <0.2. Kidney Disease Stage 78 mL/MIN Comment: NOTE; ??The GFR is an estimated [...] Kidney failure or on dialysis @ Calcium 9.7 8.8 - 10.2 mg/dL 06/14/2017 12:04 PM [facility] [employer] HISTORICAL RESULTS Total Protein 7.2 6.4 - 8.3 g/dL 06/14/2017 12:04 PM [facility] [employer] [facility] HISTORICAL RESULTS Albumin 4.1 3.5 - 5.2 g/dL 06/14/2017 12:04 PM [facility] HISTORICAL RESULTS Globulin 3.1 2.3 - 3.5 gm/dL 06/14/2017 12:04 PM [facility] [employer] [facility] HISTORICAL RESULTS Albumin/Globulin Ratio 1.3 1.1 - 1.8 06/14/2017 12:04 PM [facility] [employer] [facility] HISTORICAL RESULTS Total Bilirubin 0.6 0.0 - 1.2 mg/dL 06/14/2017 12:04 PM [facility] [employer] [facility] HISTORICAL RESULTS AST 28 0 - 32 U/L ALT 37(H) 0 - 33 U/L Alkaline Phosphatase 106(H) 35 - 104 U/L 06/14/2017 12:04 PM [facility] [employer] [facility] HISTORICAL RESULTS 06/14/2017 11:3 7 AM INVENTORY MANAGEMENT SPECIALIST 06/14/2017 11:39 AM INVENTORY MANAGEMENT SPECIALIST us Alex Browne MD LAB BLOOD ORDERABLES Final Result [facility] HISTORICAL RESULTS documented in this encounter Visit Diagnoses Diagnosis Impaired fasting glucose Nonspecific elevation of levels of transaminase and lactic acid dehydrogenase (LDH) documented in this encounter Care Teams Electronics Utility Worker Relationship Specialty Start Date End Date Unknown, Notinfile PCP - General 06/02/17 06/22/17 documented as of this encounter
--- OUTSIDE RECORDS SUMMARY | 2024-06-23 15:27 | XMS_ITS | Encounter Summary ---
Author Organization [facility] Healthcare Address [address] [place] [address] Care Team Providers Care Hand Shoes Sewer Name Role Phone Unavailable Primary Care Provider Unavailabl e Encounter Details Date Type Department Care Team (Late st Contact Info) Description 09/02/2016 7:16 AM FINE ARTS MODEL Hospital Encounter [facility] Alex Christianson MD [address] [place] [phone] Essential (primary) hypertension; Morbid (severe) obesity due to excess calories (CMS/HCC); Other specified anxiety disorders; Hypothyroidism Social History Tobacco Use Types Packs/Day [...] Date/Time Associated Diagnosis Comments THYROID PANEL Routine 09/02/2016 7:46 AM FINE ARTS MODEL LIPID PANEL Routine 09/02/2016 7:46 AM FINE ARTS MODEL COMPREHENSIVE METABOLIC PANEL Routine 09/02/2016 7:46 AM FINE ARTS MODEL documented in this encounter Results * Thyroid Panel (09/02/2016 7:46 AM FINE ARTS MODEL) TSH 1.42 0.27 - 4.20 uIU/mL 09/02/2016 9:24 AM FINE ARTS MODEL [facility] HISTORICAL RESULTS Free T4 1.18 0.93 - 1.70 ng/dL 09/02/2016 7:46 AM FINE ARTS MODEL 09/02/2016 8:23 AM FINE ARTS MODEL Alex Browne MD LAB BLOOD ORDERABLES Final Result Performing Organization Address [facility] Co de Phone Number [facility] HISTORICAL RESULTS * Lipid panel (09/02/2016 7:46 AM FINE ARTS MODEL) Triglycerides 112 0 - 199 mg/dL Comment:12 hr pc highly samanta mmended for Triglyceride Cholesterol 126 0 - 199 mg/dL Comment: Borderline: ??200-239 High Risk: ?? >239 HDL Cholesterol 58 40 - 60 mg/dL Comment: Major Risk ?< 40 mg/dL Moderate Risk ?40-60 mg/dL Negative Risk ?? > 60 mg/dL LDL Cholesterol, Calc 46 0 - 130 mg/dL Comment:High Risk > 159 mg/d L Cholesterol/HDL Ratio 2.2 Comment: Cholesterol / HDL Ratio 3.5:1 or less is desirable. Cholesterol / HDL Ratio greater than 5:1 is considered higher risk for developing heart disease. 09/02/2016 7:46 AM FINE ARTS MODEL 09/02/2016 8:23 AM FINE ARTS MODEL us Alex Browne MD LAB BLOOD ORDERABLES Final Result Performing Organization Address [facility] Co de Phone Number [facility] HISTORICAL RESULTS * (ABNORMAL) Comprehensive metabolic panel (09/02/2016 7:46 AM FINE ARTS MODEL) Sodium 139 135 - 145 mmol/L Potassium 4.4 3.3 - 5.1 mmol/L 09/02/2016 9:20 AM [employer] [facility] [employer] [facility] HISTORICAL RESULTS Chloride 101 96 - 108 mmol/L 09/02/2016 9:20 AM [employer] [facility] [employer] [facility] HISTORICAL RESULTS Carbon Dioxide 29 22 - 32 mmol/L 09/02/2016 9:20 AM [employer] [facility] [employer] [facility] HISTORICAL RESULTS Anion Gap 9 7 - 16 09/02/2016 9:20 AM [employer] [facility] [employer] [facility] HISTORICAL RESULTS Glucose 97 70 - 100 mg/dL 09/02/2016 9:20 AM [employer] [facility] [employer] [facility] HISTORICAL RESULTS BUN 12 8 - 23 mg/dL 09/02/2016 9:20 AM [employer] [facility] RES[facility] Creatinine 0.8 0.5 - 1.1 mg/dL 09/02/2016 9:20 AM [employer] [facility] [employer] [facility] HISTORICAL RESULTS Comment: NOTE: Estimated GFR (Cockroft-Gault) will NOT be calculated unless patient Height and Weight were entered. Also, Kidney Disease Stage (GFR) and Estimated GFR (Cockroft-Gault) will NOT be calculated if Creatinine result is <0.2. Kidney Disease Stage 78 mL/MIN 09/02/2016 9:20 AM [employer] [facility] [employer] [facility] HISTORICAL RESULTS Comment: NOTE; ??The GFR is [...] @ Calcium 9.8 8.8 - 10.2 mg/dL 09/02/2016 9:20 AM [facility] [employer] [facility] HISTORICAL RESULTS Total Protein 6.8 6.4 - 8.3 g/dL Albumin 4.3 3.5 - 5.2 g/dL 09/02/2016 9:20 AM FINE ARTS MODEL [facility] HISTORICAL RESULTS Globulin 2.5 2.3 - 3.5 gm/dL Albumin/Globulin Ratio 1.7 1.1 - 1.8 09/02/2016 9:20 AM FINE ARTS MODEL [facility] HISTORICAL RESULTS Total Bilirubin 0.6 0.0 - 1.2 mg/dL AST 28 0 - 32 U/L ALT 39(H) 0 - 33 U/L Alkaline Phosphatase 98 35 - 104 U/L 09/02/2016 7:46 AM FINE ARTS MODEL 09/02/2016 8:23 AM FINE ARTS MODEL Alex Browne MD LAB BLOOD ORDERABLES Final Result [facility] HISTORICAL RESULTS documented in this encounter Visit Diagnoses Diagnosis Essential (primary) hypertension Unspecified essential hypertension Morbid (severe) obesity due to excess calories (HCC) Other specified anxiety disorders Hypothyroidism Unspecified hypothyroidism documented in this encounter
--- OUTSIDE RECORDS SUMMARY | 2024-06-23 15:27 | XMS_ITS | Encounter Summary ---
Author Organization [facility] Address [address] [place] [address] Care Team Providers Care Engagement Engineer Name Role Phone Alex Browne MD Primary Care Provider [phone]- [phone] Encounter Details Date Type Department Care Team (Late st Contact Info) Description 01/29/2018 6:44 AM CDT Hospital Encounter [facility] Alex Browne MD [address] [place] [phone] Hypothyroidism; Mixed hyperlipidemia; Essential (primary) hypertension; Abnormal finding of blood chemistry; Other specified disorders of bone density and structure, unspecified site Social History Tobacco Use Types Packs/Day Years [...] Date/Time Associated Diagnosis Comments THYROID PANEL Routine 01/29/2018 7:12 AM CDT CBC WITH AUTO DIFFERENTIAL Routine 01/29/2018 7:12 AM CDT VITAMIN D 25 HYDROXY Routine 01/29/2018 7:12 AM CDT LIPID PANEL Routine 01/29/2018 7:12 AM CDT COMPREHENSIVE METABOLIC PANEL Routine 01/29/2018 7:12 AM CDT documented in this encounter Results * (ABNORMAL) CBC with auto differential (01/29/2018 7:12 AM CDT) WBC 5.7 3.5 - 10.5 x10 3/ul 01/29/2018 7:27 AM CDT [employer] [facility] [employer] HISTORICAL RESULTS RBC 5.53(H) 3.76 - 4.80 x10 6/ul 01/29/2018 7:27 AM CDT [employer] [facility] [employer] HISTORICAL RESULTS Hemoglobin 16.2(H) 11.0 - 15.0 g/dL 01/29/2018 7:27 AM CDT [facility] [employer] HISTORICAL RESULTS Hct 48.5(H) 33.0 - 43.0 % 01/29/2018 7:27 AM CDT [facility] HISTORICAL RESULTS MCV 87.7 80.0 - 97.0 fl 01/29/2018 7:27 AM CDT [facility] HISTORICAL RESULTS MCH 29.3 27.0 - 31.2 pg 01/29/2018 7:27 AM CDT [facility] HISTORICAL RESULTS MCHC 33.4 31.8 - 35.4 g/dl 01/29/2018 7:27 AM CDT [facility] HISTORICAL RESULTS RDW 13.5 11.6 - 14.8 % 01/29/2018 7:27 AM CDT [facility] HISTORICAL RESULTS Plt Count 243 150 - 450 X10 3/ul 01/29/2018 7:27 AM CDT [facility] HISTORICAL RESULTS MPV 9.6 7.4 - 10.4 fl 01/29/2018 7:27 AM CDT [facility] HISTORICAL RESULTS Neut % 68.1 37.0 - 85.0 % 01/29/2018 7:27 AM CDT [facility] HISTORICAL RESULTS Immature Gran % 0.5 0.0 - 3.0 % 01/29/2018 7:27 AM CDT [facility] HISTORICAL RESULTS Lymph % 21.3 5.0 - 45.0 % 01/29/2018 7:27 AM CDT [employer] HISTORICAL RESULTS Faulk % 8.4 3.0 - 15.0 % 01/29/2018 7:27 AM CDT [employer] HISTORICAL RESULTS Eos % 1.0 0.0 - 7.0 % Baso % 0.7 0.0 - 2.0 % Absolute Neuts (auto) 3.9 1.7 - 8.7 x10 3/ul Immature Gran # 0.0 0.0 - 0.3 x10 3/ul Absolute Lymphs (auto) 1.2 0.2 - 4.6 x10 3/ul Absolute Monos (auto) 0.5 0.1 - 1.5 x10 3/ul Absolute Eos (auto) 0.1 0.0 - 0.7 x10 3/ul Absolute Basos (auto) 0.0 0.0 - 0.2 x10 3/ul Nucleat RBC Rel Count 0.0 0 - 3 #/100WBC Absolute Nucleated RBC 0.00 x10 3/ul Absolute Neutrophils 3900 200 - 8000 /ul 01/29/2018 7:12 AM CDT 01/29/2018 7:15 AM CDT us Alex Browne MD LAB BLOOD ORDERABLES Final Result [facility] HISTORICAL RESULTS * (ABNORMAL) Thyroid Panel (01/29/2018 7:12 AM CDT) TSH 4.65(H) 0.27 - 4.20 uIU/mL Free T4 1.30 0.93 - 1.70 ng/dL 01/29/2018 7:12 AM CDT 01/29/2018 7:15 AM CDT Alex Browne MD LAB BLOOD ORDERABLES Final Result [facility] HISTORICAL RESULTS * Vitamin D 25 hydroxy (01/29/2018 7:12 AM CDT) 25-OH Vitamin D Total 39 30 - 80 ng/mL 01/29/2018 7:1 2 AM CDT 01/29/2018 7:15 AM CDT Alex Browne MD LAB BLOOD ORDERABLES Final Result Performing Organization Address City/[facility]/ZIP Co de Phone Number [facility] HISTORICAL RESULTS * Lipid panel (01/29/2018 7:12 AM CDT) Triglycerides 124 0 - 149 mg/dL Comment: National Lipid Association/NCEP Guidelines: ?? Normal ?< 150 mg/dL ?? Borderline high ?? 150-199 mg/dL ?? High ?200-499 mg/dL ?? Very High ? >=500 mg/dL Cholesterol 158 0 - 199 mg/dL Comment: National Lipid Association/NCEP Guidelines: Desirable ? < 200 mg/dL Borderline high: ??200-239 mg/dL High Risk: ?>=240 mg/dL HDL Cholesterol 60 mg/dL 8 7:59 AM CDT [facility] HISTORICAL RESULTS Comment: Reference Ranges: ? Males: >=40 mg/dL ? Females: >=50 mg/dL LDL Cholesterol, Calc 73 0 - 129 mg/dL Comment: National Lipid Association/NCEP Guidelines: ??Optimal ? < 100 mg/dL ??Near Optimal ?100-129 mg/dL ??Borderline high 130-159 mg/dL ??High ?>=160 mg/dL Cholesterol/HDL Ratio 2.6 Comment: Optimal ??< 3.5:1 High ? > 5:1 01/29/2018 7:12 AM CDT 01/29/2018 7:15 AM CDT us Alex Browne MD LAB BLOOD ORDERABLES Final Result [facility] HISTORICAL RESULTS * (ABNORMAL) Comprehensive metabolic panel (01/29/2018 7:12 AM CDT) Sodium 139 135 - 145 mmol/L Potassium 4.1 3.3 - 5.1 mmol/L Chloride 101 96 - 108 mmol/L Carbon Dioxide 26 22 - 32 mmol/L Anion Gap 12 7 - 16 Glucose 108(H) 70 - 100 mg/dL BUN 18 8 - 23 mg/dL Creatinine 0.8 0.5 - 1.1 mg/dL Comment: NOTE: Estimated GFR (Cockroft-Gault) will NOT be calculated unless patient Height and Weight were entered. Also, Kidney Disease Stage (GFR) and Estimated GFR (Cockroft-Gault) will NOT be calculated if Creatinine result is <0.2. Kidney Disease Stage 78 mL/MIN 01/29/2018 7:59 AM [employer] HISTORICAL RESULTS Comment: NOTE; ??The GFR is [...] Kidney failure or on dialysis @ Calcium 10.1 8.8 - 10.2 mg/dL 01/29/2018 7:59 AM [employer] [facility] [employer] [facility] HISTORICAL RESULTS Total Protein 7.7 6.4 - 8.3 g/dL 01/29/2018 7:59 AM [employer] [facility] [employer] [facility] HISTORICAL RESULTS Albumin 4.2 3.5 - 5.2 g/dL 01/29/2018 7:59 AM [facility] [employer] [facility] HISTORICAL RESULTS Globulin 3.5 2.3 - 3.5 gm/dL 01/29/2018 7:59 AM [employer] [facility] [employer] [facility] HISTORICAL RESULTS Albumin/Globulin Ratio 1.2 1.1 - 1.8 01/29/2018 7:59 AM [facility] [employer] [facility] HISTORICAL RESULTS Total Bilirubin 0.7 0.0 - 1.2 mg/dL 01/29/2018 7:59 AM [employer] [facility] [employer] [facility] HISTORICAL RESULTS AST 27 0 - 32 U/L 01/29/2018 7:59 AM [employer] [facility] [employer] HISTORICAL RESULTS ALT 41(H) 0 - 33 U/L Alkaline Phosphatase 110(H) 35 - 104 U/L 01/29/2018 7:12 AM CDT 01/29/2018 7:15 AM CDT us Alex Browne MD LAB BLOOD ORDERABLES Final Result [facility] HISTORICAL RESULTS documented in this encounter Visit Diagnoses Diagnosis Hypothyroidism Unspecified hypothyroidism Mixed hyperlipidemia Essential (primary) hypertension Unspecified essential hypertension Abnormal finding of blood chemistry Other specified disorders of bone density and structure, unspecified site documented in this encounter Care Teams Engagement Engineer Relationship Specialty Start Date End Date Alex Browne MD PCP - General 06/23/17 09/18/18 documented as of this encounter
--- OUTSIDE RECORDS SUMMARY | 2024-06-23 15:27 | XMS_ITS | Encounter Summary ---
Author Organization [facility] Healthcare Address [address] [place] [address] Care Team Providers Care Jewel Sorter Name Role Phone Alex Browne MD Primary Care Provider [phone]- [phone] Encounter Details Date Type Department Care Team (Late st Contact Info) Description 10/22/2018 9:45 AM CDT - 10/22/2018 10:14 AM CDT Hospital Encounter [facility] INTERIM Eric Gonzalez MD [address] [facility] [address] [address] Social History Tobacco Use Types Packs/Day Years [...] on filedocumented in this encounter Care Teams Jewel Sorter Relationship Specialty Start Date End Date Alex Browne MD [address] [place] [id number] PCP - General 10/11/18 11/21/22 documented as of this encounter
--- OUTSIDE RECORDS SUMMARY | 2024-06-23 15:27 | XMS_ITS | Encounter Summary ---
Author Organization [facility] Medical [facility] Address [address] [address] Care Team Providers Care Quality Assurance Advisor Name Role Phone Alex Browne MD Primary Care Provider [phone] Reason for Referral * Procedure (Routine) - Closed Specialty Diagnoses / Procedures Referred By Contac t Referred To Contact Diagnoses Trigger middle finger of left hand Procedures Hand / Upper Extremity Arthrocentesis: L long A1 Vandana Cheung MD Phone: tel: fax: [facility] Medical Group Referral ID Status Reason Start Date Expiration Date Visits Re quested Visits Authorized [id number] Closed 08/21/2020 09/20/2021 1 1 OL BUSINESS ADMINISTRATOR * Diagnostic Imaging (Routine) - Closed Specialty Diagnoses / Procedures Referred By Contac t Referred To Contact Diagnoses Bilateral hand pain Procedures XR Hand Right 3+ Vw Vandana Cheung MD Phone: tel: fax: [address] [phone] Referral ID Status Reason Start Date Expiration Date Visits Re quested Visits Authorized [id number] Closed 08/20/2020 09/19/2021 1 1 OL BUSINESS ADMINISTRATOR * Diagnostic Imaging (Routine) - Closed Specialty Diagnoses / Procedures Referred By Contac t Referred To Contact Diagnoses Bilateral hand pain Procedures XR Hand Left 3+ Vw Vandana Cheung MD Phone: tel: fax: [facility] [address] [place] [address] Referral ID Status Reason Start Date Expiration Date Visits Re quested Visits Authorized [id number] Closed 08/20/2020 09/19/2021 1 1 OL BUSINESS ADMINISTRATOR Reason for Visit * Reason Comments Pain Numbness * Consultation (Routine) - Closed Specialty Diagnoses / Procedures Referred By Contac t Referred To Contact Orthopedic Surgery Diagnoses Bilateral hand pain Alex Browne MD [address] [place] [id number] Phone: tel: fax: Erick Sarabia MD [address] [place] [address] DR THOMPSON [address] [place] [address] Phone: tel: fax: Referral ID Status Reason Start Date Expiration Date V isits Requested Visits Authorized [id number] Closed Specialty Services Required 07/02/2020 08/01/2021 1 1 Encounter Details Date Type Department Care Team (Late st Contact Info) Description 08/21/2020 10:00 AM SCHOOL BUSINESS ADMINISTRATOR Office Visit [facility] Medical Group Hand Surgery [address] [place] [address] [place] [phone] Vandana Cheung MD [address] [place] [address] DR THOMPSON [address] [place] [phone] Bilateral hand pain (Primary Dx); Numbness and tingling in left hand; Trigger middle finger of left hand Social History Tobacco Use Types Packs/Day Years [...] - Inhaled Oxygen Concentration - - Weight 131.5 kg (290 lb) 08/21/2020 9:42 AM SCHOOL BUSINESS ADMINISTRATOR Height 162.6 cm (5' 4 ) 08/21/2020 9:42 AM SCHOOL BUSINESS ADMINISTRATOR Body Mass Index 49.78 08/21/2020 9:42 AM SCHOOL BUSINESS ADMINISTRATOR documented in this encounter Progress Notes * Vandana Cheung MD - 08/21/2020 10:00 AM CSTAssociated Order(s): Hand / Upper Extremity Arthrocentesis: L long A1 Post-Procedure Diagnose(s): Trigger middle finger of left hand Images from the original note were not included. CONSULT VISIT Subjective CHIEF COMPLAINT Alicia Garibay Conorgio was seen today for consultation requested by Alex Browne MD for Pain and Numbness of the Left Wrist HISTORY OF PRESENT ILLNESS The patient is a 65-year-old left-hand dominant female with a past medical history of diabetes mellitus type 2 and obstructive sleep apnea who presents today for evaluation of numbness and tingling in the left hand and arm pain for the past 2 months. The patient states that this started possibly which she is taking down [employer] decorations and cleaning. She notes a burning and aching pain whichis moderate in nature particularly worse when lying down in bed. She states that all of the digits in her hand go numb. She notes that sitting with her arm on an arm wrist or her hand on her head makes this better. She states that she has both pain with activity as well as at night. She has tried icing anti-inflammatory medications and has used a 10s unit. Of note she has had previous bilateral carpal tunnel releases in 1994. She denies any numbness or tingling in the right upper extremity. Additionally she also has pain at the MCP joint of the left middle finger. She also notes triggering over the last few months which is now happening daily. PAST MEDICAL HISTORY She has a past medical history of Allergic rhinitis, Anxiety, Cataract, Depression, Diabetes (CMS/HCC), Endometriosis, Hypertension, Lichen sclerosus et atrophicus, Sinusitis, and Thyroid disease. PAST SURGICAL HISTORY She has a past surgical history that includes pr removal of tonsils,<13 y/o; pr revise median n/carpal tunnel surg; pr remove uterus after ; pr removal gallbladder; pr lap,sling operation;and Myringotomy w/ tubes. MEDICATIONS She has a current medication list which includes the following prescription(s): aspirin, duloxetinedr, fenofibrate micronized, hydrochlorothiazide, metformin, synthroid, cetirizine, cyclobenzaprine,fluconazole, fluticasone propionate, and meclizine. ALLERGIES She is allergic to bee pollen; levofloxacin; mite extract; and mold. SOCIAL HISTORY Social History Occupational History ??? Not on file Tobacco Use ??? Smoking status: Former Smoker Types: Cigarettes Quit date: 1998 Years since quittin.1 ??? Smokeless tobacco: Never Used Substance and Sexual Activity ??? Alcohol use: Not on file ??? Drug use: Not on file ??? Sexual activity: Not on file FAMILY HISTORY Her family history includes Cancer in her brother and sister; Diabetes in her mother; Heart attack in her father; Heart disease in her mother. REVIEW OF SYSTEMS Constitutional: Negative for fever and chills. HENT: Negative for neck pain. Eyes: Negative for change in vision. Respiratory: Negative for cough and shortness of breath. Cardiovascular: Negative for chest pain or pressure. PHYSICAL EXAM Ht 162.6 cm (5' 4 ) Wt 131.5 kg (290 lb) BMI 49.78 kg/m?? General: Well appearing in no acute distress Chest: Normal work of breathing HEENT: Normocephalic, atraumatic Neuro: alert and oriented to person, place and time Focused exam of the upper extremities. Hands are symmetric in appearance. There are previous well-healed incisions at the bilateral wrists. There is 5/5 apb strength bilaterally and 5/5 abduction strength bilaterally. There is a negative Froment's and Wartenberg signs bilaterally. There is no evidence of interossei atrophy. There is no thenar atrophy bilaterally. Radial pulses are 2+ and equal bilaterally. The fingers are warm and well perfused. She is able to make a full fist and touch the fingertips down to the palm. Sensation is intact to light touch along the radial distribution. She has decreased sensation to light touch in the median nerve and ulnar nerve distributions. Her 2 point discrimination is intact to 5 mm on all digits. She has a negative Tinel's and a positive Durkan sign at the wrist on the left. She has a negativeTinel's and elbow compression test bilaterally. There isno ulnar nerve subluxation with range of motion of the elbow. There is tenderness to palpation overthe A1 jhonatan of the left middle finger. There is palpable triggering on exam today. There is a palpable nodule at the left middle finger A1 jhonatan. REVIEW OF X-RAYS/STUDIES/LABS X-rays of the bilateral hands dated today were reviewed by me and demonstrate no fractures dislocations or malalignment. There is some joint space narrowing in the bilateral 1st CMC joints. There is also joint space narrowing and osteophytes present at the D IP joint of the left middle finger and IP joint of the right thumb. Hand / Upper Extremity Arthrocentesis: L long A1 Performed by: Vandana Cheung MD Authorized by: Vandana Cheung MD Hand/Upper Extremity Injection: Consent Given by: Patient Site marked: the procedure site was marked Timeout: prior to procedure the correct patient, procedure, and site was verified Verbal consent obtained?: Yes Written consent obtained?: Yes Supporting Documentation: Indications: Pain Procedure Details: Condition: trigger finger Location: Long finger Site: L long A1 Prep: patient was prepped and draped in usual sterile fashion Prep: patient was prepped using a clean technique Ultrasound guidance: No Medications: 40 mg triamcinolone 40 mg/mL; 1 mL lidocaine 10 mg/mL (1 %) PLAN The patient is a 65-year-old left-hand dominant female who presents today for numbness and tinglinggoing in the left hand as well as left middle trigger finger. I discussed with the patient the relevant anatomy and diagnosis associated with left middle triggerfinger. We discussed forms of non operative management including rest, ice, anti-inflammatory medication, activity modification and corticosteroid injection.We discussed the risks and benefits of a corticosteroid injection including but not limited to pain, infection, bleeding, risk to neurovascular structures, incomplete resolution of symptoms, increased blood sugar, and future surgery. Since the patient has not tried a corticosteroid injection previously she would like to see if thiswill help resolve her trigger finger. A left middle trigger finger injection was provided by me today. Again the patient was instructed that she should check her blood sugar more frequently due to the risk of increased blood sugar with corticosteroid. With regard to her numbness and tingling on the left hand, I discussed with the patient that this could be due to cervical radiculopathy since the patient does describe a shoulder abduction test which relieves her symptoms or her diabetes or compressive neuropathy in the left upper extremity. In order to better evaluate this, I have ordered an upper extremity EMG. She will return to see me following her EMG to discuss the results. PROCEDURE NOTE: After a discussion of the indications and risks, the site was confirmed with a formal timeout. Using aseptic technique the left middle finger was prepped and the base of the digit wastopically anesthetized with Ethyl Chloride. Approximately 1 cc of a combination of Kenalog 40 milligram per cc and Lidocaine 1% without epinephrine was instilled in the flexor sheath by myself. A sterile dressing was applied and the patient tolerated it well. No adverse reactions were observed. Vandana Cheung MD OL BUSINESS ADMINISTRATOR documented in this encounter Plan of Treatment Not on file documented as of this encounter Procedures Procedure Name Priority Date/Time Associated Diagnosis Comments [place] INJECTION 1 TENDON SHEATH/LIGAMENT APONEUROSIS Routine 08/21/2020 10:00 AM SCHOOL BUSINESS ADMINISTRATOR Trigger middle finger of left hand documented in this encounter Results * [place] INJECTION 1 TENDON SHEATH/LIGAMENT APONEUROSIS (08/21/2020 10:00 AM SCHOOL BUSINESS ADMINISTRATOR) Narrative Vandana Cheung MD - 08/21/2020 10:00 AM SCHOOL BUSINESS ADMINISTRATOR Vandana Cheung MD ? 08/21/2020 10:54 AM Hand / Upper Extremity Arthrocentesis: L long A1 Performed by: Vandana Cheung MD Authorized by: Vandana Cheung MD Hand/Upper Extremity Injection: ??Consent Given by: ??Patient ??Site marked: the procedure site was marked ?Timeout: prior to procedure the correct patient, procedure, and site was verified ?Verbal consent obtained?: Yes ?Written consent obtained?: Yes ?? Supporting Documentation: ??Indications: ??Pain Procedure Details: ??Condition: trigger finger ?Location: ??Long finger ??Site: ??L long A1 ??Prep: patient was prepped and draped in usual sterile fashion ?Prep: patient was prepped using a clean technique ?Ultrasound guidance: No ?Medications: ??40 mg triamcinolone 40 mg/mL; 1 mL lidocaine 10 mg/mL (1 %) us Vandana Cheung MD IN CLINIC/BEDSIDE ORDERAB LES Final Result * XR Hand Right 3+ Vw (08/21/2020 9:53 AM SCHOOL BUSINESS ADMINISTRATOR) Anatomical Region Laterality Modality Upper Extremities, Hand Right Radiogra phic Imaging 08/22/2020 7:35 AM SCHOOL BUSINESS ADMINISTRATOR Narrative 08/22/2020 7:38 AM SCHOOL BUSINESS ADMINISTRATOR Patient Name: ALICIA BOYCE ?Ordering Dr: Vandana Cheung MD ?? D.O.B: 1955 ? Exam Date: 08/21/20 ?? 0953 ?? Age: 65 ?Sex: Female ? MR#: [id number] ?? Loc: ? RADIOLOGY REPORT ?? Order #[id number] ?? Radiology ? Hand Right 3 View [...] 7:38 AM ?? T: ? Report ID: [id number] ?? Reading Location: ??[id number] ? REPORT ELECTRONICALLY SIGNED IN OTHER VENDOR SYSTEM ?? Resulting Agency Comment O Procedure Note Jayesh Hoffmann MD - 08/22/2020 Patient Name: CONORGIOALICIA Dr: Vandana Cheung MD D.O.B: 1955 Exam Date: 08/21/20952 Age: 65 Sex: Female MR#: [id number] Loc: RADIOLOGY REPORT Order #[id number] Radiology Hand Right 3 View Min Signed [...] signed by Jayesh Hoffmann T: Report ID: [id number] Reading Location: [place] [address] REPORT ELECTRONICALLY SIGNED IN OTHER VENDOR SYSTEM us Vandana Cheung MD IMG XR PROCEDURES Final R esult * XR Hand Left 3+ Vw (08/21/2020 9:53 AM SCHOOL BUSINESS ADMINISTRATOR) Anatomical Region Laterality Modality Upper Extremities, Hand [facility] 08/22/2020 7:35 AM SCHOOL BUSINESS ADMINISTRATOR Narrative 08/22/2020 7:38 AM SCHOOL BUSINESS ADMINISTRATOR Patient Name: ALICIA BOYCE ?Ordering Dr: Vandana Cheung MD ?? D.O.B: 1955 ? Exam Date: 08/21/20 ?? 0953 ?? Age: 65 ?Sex: Female ? MR#: [id number] ?? Loc: ? RADIOLOGY REPORT ?? Order #[id number] ?? Radiology ? Hand Left 3 View [...] 7:38 AM ?? T: ? Report ID: [id number] ?? Reading Location: ??[id number] ? REPORT ELECTRONICALLY SIGNED IN OTHER VENDOR SYSTEM ?? Resulting Agency Comment O Procedure Note Jayesh Hoffmann MD - 08/22/2020 Patient Name: ALICIA BOYCE Dr: Vandana Cheung MD D.O.B: 1955 Exam Date: 08/21/20952 Age: 65 Sex: Female MR#: [id number] Loc: RADIOLOGY REPORT Order #[id number] Radiology Hand Left 3 View Min Signed [...] signed by Jayesh BRUMFIELD T: Report ID: [id number] Reading Location: [place] [address] REPORT ELECTRONICALLY SIGNED IN OTHER VENDOR SYSTEM us Vandana Cheung MD IMG XR PROCEDURES Final R esult documented in this encounter Visit Diagnoses Diagnosis Bilateral hand pain- Primary Numbness and tingling in left hand Disturbance of skin sensation Trigger middle finger of left hand Bilateral hand pain documented in this encounter Administered Medications Inactive Administered Medications - up to 3 most recent administrations Medication Order MAR Action Action Date Dose Rate Site lidocaine (XYLOCAINE) 10 mg/mL (1 %) injection 1 mL 1 mL, One-Time Injection, Starting on Mon08/21/20 at 1027, For 1 dose, Indications: Administration of Local AnesthesiaIndications:Administrati on of Local Anesthesia Given 08/21/2020 10:27 AM SCHOOL BUSINESS ADMINISTRATOR 1 mL triamcinolone (KENALOG) 40 mg/mL injection 40 mg 40 mg, intra-articular, One-Time Injection, Starting on Mon08/21/20 at 1027, For 1 doseIndications:Trigger middle finger of left hand Given 08/21/2020 10:27 AM SCHOOL BUSINESS ADMINISTRATOR 40 mg documented in this encounter Historical Medications * This list may reflect changes made after this encounter. cyclobenzaprine (FLEXERIL) 10 mg tablet Take 10 mg by mouth daily 08/17/2020 10/19/2020 added in this encounter Orders Outpatient Referral Count Last Ordered Date Fir st Ordered Date AMB REFERRAL TO ORTHOPEDIC SURGERY 1 2020 documented in this encounter Care Teams Quality Assurance Advisor Relationship Specialty Start Date End Date Alex Browne MD [address] [facility] [place] [address] PCP - General 10/11/18 11/21/22 documented as of this encounter
--- OUTSIDE RECORDS SUMMARY | 2024-06-23 15:27 | XMS_ITS | Encounter Summary ---
Author Organization [facility] Healthcare Address [address] [place] [address] Care Team Providers Care Reticle Printer Name Role Phone Unknown, Notinfile Primary Care Provider Unavail able Encounter Details Date Type Department Care Team (Latest Contact Info) Description 04/27/2017 9:47 AM CDT - 04/27/2017 11:59 PM CDT Hospital Encounter [facility] INTERIM [phone] Veronique Nur, MEDICAL RECORDS DIRECTOR [address] [facility] [address] [place] [address] Discharge Disposition: Discharge to home or self [...] Procedure Name Priority Date/Time Associated Diagnosis Comments KNEE RADIOGRAPHY, FRONTAL (AP), LATERAL, OBLIQUE Routine 04/27/2017 3:11 PM CDT XR HAND 3+ VW Routine 04/27/2017 3:11 PM CDT XR HAND 3+ VW Routine 04/27/2017 3:11 PM CDT documented in this encounter Results * KNEE RADIOGRAPHY, FRONTAL (AP), LATERAL, OBLIQUE (04/27/2017 3:11 PM CDT) Anatomical Region Laterality Modality N/A Radiographic Liz ging 04/27/2017 3:11 PM CDT Narrative 04/27/2017 3:21 PM CDT CHRISTY HAJI M.D. FINAL REPORT ACC# ??Date Time ??Exam [id number] Apr 27, 2017 10:11:00 40891 Hand minimum 3 views R [id number] Apr 27, 2017 10:11:00 12717 Hand minimum 3 views L [id number] Apr 27, 2017 10:11:00 38013 Knee 3 views R EXAMINATION: ?? 1. ??Right hand minimum 3 views. 2. ??Left hand minimum 3 views. 3. ??Right knee, 3 views. HISTORY: ??Polyarticular bilateral hand pain; right knee osteoarthritis, primary FINDINGS: There are no prior studies for comparison. 3 view examination of each hand shows normal alignment. ??There are no erosions. ??There is soft tissue swelling of the metacarpophalangeal joints bilaterally. ??Mild osteoarthritis involves the proximal and distal interphalangeal joints of the fingers. ??There is no acute fracture. ??An nonunited fracture of the right ulnar styloid is present in the wrist. 3 view examination of the right knee includes a standing AP and Merchant examination of both knees. ??There is moderate medial compartment predominant osteoarthritis of both knees. ??On the right, there is no fracture, loose body, or effusion. IMPRESSION: ??1. ??Moderate medial compartment predominant right knee osteoarthritis. 2. ??Mild osteoarthritis of the proximal and distal interphalangeal joints of the fingers bilaterally. 3. ??Soft tissue swelling of the metacarpophalangeal joints bilaterally, without erosions. Electronically signed by: Christy Haji M.D. Requested By: VERONIQUE NUR Dictated By: ?? CHRISTY HAJI M.D. ??on Apr 10:19A This document has been electronically signed by: CHRISTY HAJI M.D. on Apr 27 2017 10:19A [id number] HAJI M.D. FINAL REPORT Attending: ??LIUDMILA, ??VERONIQUE Requesting: ??LIUDMILA, ??VERONIQUE Requesting Fax: ?? Attending Fax: ?? Attending ID: ??[id number] Requesting ID: ??[id number] Report To 1 ID: ??[id number] ? Report To 1 Name: ??, ?? Report To 1 FAX: ?? NextGen Order #: ?? Procedure Note Miscellaneous, Not In File - 04/27/2017 CHRISTY HAJI M.D. FINAL REPORT ACC# Date Time Exam [id number] Apr 27, 2017 10:11:00 98254 Hand minimum 3 views R [id number] Apr 27, 2017 10:11:00 67093 Hand minimum 3 views L [id number] Apr 27, 2017 10:11:00 72125 Knee 3 views R EXAMINATION: 1. Right hand minimum 3 views. 2. Left hand minimum 3 views. 3. Right knee, 3 views. HISTORY: Polyarticular bilateral hand pain; right knee osteoarthritis, primary FINDINGS: There are no prior studies for comparison. 3 view examination of each hand shows normal alignment. There are no erosions. There is soft tissue swelling of the metacarpophalangeal joints bilaterally. Mild osteoarthritis involves the proximal and distal interphalangeal joints of the fingers. There is no acute fracture. An nonunited fracture of the right ulnar styloid is present in the wrist. 3 view examination of the right knee includes a standing AP and Merchant examination of both knees. There is moderate medial compartment predominant osteoarthritis of both knees. On the right, there is no fracture, loose body, or effusion. IMPRESSION: 1. Moderate medial compartment predominant right knee osteoarthritis. 2. Mild osteoarthritis of the proximal and distal interphalangeal joints of the fingers bilaterally. 3. Soft tissue swelling of the metacarpophalangeal joints bilaterally, without erosions. Electronically signed by: Christy Haji M.D. Requested By: VERONIQUE NUR Dictated By: CHRISTY HAJI M.D. on Apr 27 2017 10:19A This document has been electronically signed by: CHRISTY HAJI M.D. on Apr 27 2017 10:19A [id number] HAJI M.D. FINAL REPORT Attending: VERONIQUE NUR Requesting: VERONIQUE NUR Requesting Fax: Attending Fax: Attending ID: [id number] Requesting ID: [id number] Report To 1 ID: [id number] Report To 1 Name: , Report To 1 FAX: NextGen Order #: us Veronique Nur MEDICAL RECORDS DIRECTOR IMG XR PROCEDURES Final Result * XR Hand 3+ VW (04/27/2017 3:11 PM CDT) Anatomical Region Laterality Modality N/A Radiographic Liz ging 04/27/2017 3:11 PM CDT Narrative 04/27/2017 3:21 PM CDT CHRISTY HAJI M.D. FINAL REPORT ACC# ??Date Time ??Exam [id number] Apr 27, 2017 10:11:00 70351 Hand minimum 3 views R [id number] Apr 27, 2017 10:11:00 52298 Hand minimum 3 views L [id number] Apr 27, 2017 10:11:00 33021 Knee 3 views R EXAMINATION: ?? 1. ??Right hand minimum 3 views. 2. ??Left hand minimum 3 views. 3. ??Right knee, 3 views. HISTORY: ??Polyarticular bilateral hand pain; right knee osteoarthritis, primary FINDINGS: There are no prior studies for comparison. 3 view examination of each hand shows normal alignment. ??There are no erosions. ??There is soft tissue swelling of the metacarpophalangeal joints bilaterally. ??Mild osteoarthritis involves the proximal and distal interphalangeal joints of the fingers. ??There is no acute fracture. ??An nonunited fracture of the right ulnar styloid is present in the wrist. 3 view examination of the right knee includes a standing AP and Merchant examination of both knees. ??There is moderate medial compartment predominant osteoarthritis of both knees. ??On the right, there is no fracture, loose body, or effusion. IMPRESSION: ??1. ??Moderate medial compartment predominant right knee osteoarthritis. 2. ??Mild osteoarthritis of the proximal and distal interphalangeal joints of the fingers bilaterally. 3. ??Soft tissue swelling of the metacarpophalangeal joints bilaterally, without erosions. Electronically signed by: Christy Haji M.D. Requested By: VERONIQUE NUR Dictated By: ?? CHRISTY HAJI M.D. ??on Apr ??2016 10:19A This document has been electronically signed by: CHRISTY HAJI M.D. on Apr 27 2017 10:19A [id number] HAJI M.D. FINAL REPORT Attending: ??LIUDMILA, ??VERONIQUE Requesting: ??LIUDMILA, ??VERONIQUE Requesting Fax: ?? Attending Fax: ?? Attending ID: ??[id number] Requesting ID: ??[id number] Report To 1 ID: ??[id number] ? Report To 1 Name: ??, ?? Report To 1 FAX: ?? NextGen Order #: ?? Procedure Note Miscellaneous, Not In File - 04/27/2017 CHRISTY HAJI M.D. FINAL REPORT ACC# Date Time Exam [id number] Apr 27, 2017 10:11:00 47704 Hand minimum 3 views R [id number] Apr 27, 2017 10:11:00 35876 Hand minimum 3 views L [id number] Apr 27, 2017 10:11:00 13208 Knee 3 views R EXAMINATION: 1. Right hand minimum 3 views. 2. Left hand minimum 3 views. 3. Right knee, 3 views. HISTORY: Polyarticular bilateral hand pain; right knee osteoarthritis, primary FINDINGS: There are no prior studies for comparison. 3 view examination of each hand shows normal alignment. There are no erosions. There is soft tissue swelling of the metacarpophalangeal joints bilaterally. Mild osteoarthritis involves the proximal and distal interphalangeal joints of the fingers. There is no acute fracture. An nonunited fracture of the right ulnar styloid is present in the wrist. 3 view examination of the right knee includes a standing AP and Merchant examination of both knees. There is moderate medial compartment predominant osteoarthritis of both knees. On the right, there is no fracture, loose body, or effusion. IMPRESSION: 1. Moderate medial compartment predominant right knee osteoarthritis. 2. Mild osteoarthritis of the proximal and distal interphalangeal joints of the fingers bilaterally. 3. Soft tissue swelling of the metacarpophalangeal joints bilaterally, without erosions. Electronically signed by: Christy Haji M.D. Requested By: VERONIQUE NUR Dictated By: CHRISTY HAJI M.D. on Apr 27 2017 10:19A This document has been electronically signed by: CHRISTY HAJI M.D. on Apr 27 2017 10:19A [id number] HAJI M.D. FINAL REPORT Attending: VERONIQUE NUR Requesting: VERONIQUE NUR Requesting Fax: Attending Fax: Attending ID: [id number] Requesting ID: [id number] Report To 1 ID: [id number] Report To 1 Name: , Report To 1 FAX: NextGen Order #: us Veronique Nur MEDICAL RECORDS DIRECTOR IMG XR PROCEDURES Final Result * XR Hand 3+ VW (04/27/2017 3:11 PM CDT) Anatomical Region Laterality Modality N/A Radiographic Liz ging 04/27/2017 3:11 PM CDT Narrative 04/27/2017 3:21 PM CDT CHRISTY HAJI M.D. FINAL REPORT ACC# ??Date Time ??Exam [id number] Apr 27, 2017 10:11:00 57349 Hand minimum 3 views R [id number] Apr 27, 2017 10:11:00 84188 Hand minimum 3 views L [id number] Apr 27, 2017 10:11:00 45220 Knee 3 views R EXAMINATION: ?? 1. ??Right hand minimum 3 views. 2. ??Left hand minimum 3 views. 3. ??Right knee, 3 views. HISTORY: ??Polyarticular bilateral hand pain; right knee osteoarthritis, primary FINDINGS: There are no prior studies for comparison. 3 view examination of each hand shows normal alignment. ??There are no erosions. ??There is soft tissue swelling of the metacarpophalangeal joints bilaterally. ??Mild osteoarthritis involves the proximal and distal interphalangeal joints of the fingers. ??There is no acute fracture. ??An nonunited fracture of the right ulnar styloid is present in the wrist. 3 view examination of the right knee includes a standing AP and Merchant examination of both knees. ??There is moderate medial compartment predominant osteoarthritis of both knees. ??On the right, there is no fracture, loose body, or effusion. IMPRESSION: ??1. ??Moderate medial compartment predominant right knee osteoarthritis. 2. ??Mild osteoarthritis of the proximal and distal interphalangeal joints of the fingers bilaterally. 3. ??Soft tissue swelling of the metacarpophalangeal joints bilaterally, without erosions. Electronically signed by: Christy Haji M.D. Requested By: VERONIQUE NUR Dictated By: ?? CHRISTY HAJI M.D. ??on Apr?2016 10:19A This document has been electronically signed by: CHRISTY HAJI M.D. on Apr 27 2017 10:19A [id number] HAJI M.D. FINAL REPORT Attending: ??LIUDMILA, ??VERONIQUE Requesting: ??LIUDMILA, ??VERONIQUE Requesting Fax: ?? Attending Fax: ?? Attending ID: ??[id number] Requesting ID: ??[id number] Report To 1 ID: ??[id number] ? Report To 1 Name: ??, ?? Report To 1 FAX: ?? NextGen Order #: ?? Procedure Note Miscellaneous, Not In File - 04/27/2017 CHRISTY HAJI M.D. FINAL REPORT ACC# Date Time Exam [id number] Apr 27, 2017 10:11:00 05667 Hand minimum 3 views R [id number] Apr 27, 2017 10:11:00 93899 Hand minimum 3 views L [id number] Apr 27, 2017 10:11:00 13902 Knee 3 views R EXAMINATION: 1. Right hand minimum 3 views. 2. Left hand minimum 3 views. 3. Right knee, 3 views. HISTORY: Polyarticular bilateral hand pain; right knee osteoarthritis, primary FINDINGS: There are no prior studies for comparison. 3 view examination of each hand shows normal alignment. There are no erosions. There is soft tissue swelling of the metacarpophalangeal joints bilaterally. Mild osteoarthritis involves the proximal and distal interphalangeal joints of the fingers. There is no acute fracture. An nonunited fracture of the right ulnar styloid is present in the wrist. 3 view examination of the right knee includes a standing AP and Merchant examination of both knees. There is moderate medial compartment predominant osteoarthritis of both knees. On the right, there is no fracture, loose body, or effusion. IMPRESSION: 1. Moderate medial compartment predominant right knee osteoarthritis. 2. Mild osteoarthritis of the proximal and distal interphalangeal joints of the fingers bilaterally. 3. Soft tissue swelling of the metacarpophalangeal joints bilaterally, without erosions. Electronically signed by: Christy Haji M.D. Requested By: VERONIQUE NUR Dictated By: CHRISTY HAJI M.D. on Apr 27 2017 10:19A This document has been electronically signed by: CHRISTY HAJI M.D. on Apr 27 2017 10:19A [id number] RUBIN, M.D. FINAL REPORT Attending: VERONIQUE NUR Requesting: VERONIQUE NUR Requesting Fax: Attending Fax: Attending ID: [id number] Requesting ID: [id number] Report To 1 ID: [id number] Report To 1 Name: , Report To 1 FAX: NextGen Order #: Veronique Nur MEDICAL RECORDS DIRECTOR IMG XR PROCEDURES Final Result documented in this encounter Visit Diagnoses Not on filedocumented in this encounter Care Teams Reticle Printer Relationship Specialty Start Date End Date Unknown, Notinfile PCP - General 04/27/17 05/03/17 documented as of this encounter
--- OUTSIDE RECORDS SUMMARY | 2024-06-23 15:27 | XMS_ITS | Encounter Summary ---
Author Organization [facility] Healthcare Address [address] [place] [address] Care Team Providers Care Vine Pruner Name Role Phone Alex Browne MD Primary Care Provider [phone]- [phone] Encounter Details Date Type Department Care Team (Late st Contact Info) Description 04/12/2018 7:53 PM CDT - 04/13/2018 5:41 AM CDT Hospital Encounter [facility] OP Eric Gonzalez MD [address] [address] Snoring; Hypersomnia Social History Tobacco Use Types Packs/Day Years [...] Respiratory Rate - - Oxygen Saturation 97% 04/12/2018 11:00 PM CDT Inhaled Oxygen Concentration - [...] documented in this encounter Visit Diagnoses Diagnosis Snoring Other dyspnea and respiratory abnormality Hypersomnia Hypersomnia, unspecified documented in this encounter Care Teams Vine Pruner Relationship Specialty Start Date End Date Alex Browne MD PCP - General 06/23/17 09/18/18 documented as of this encounter
--- OUTSIDE RECORDS SUMMARY | 2024-06-23 15:30 | XMS_ITS | Continuity of Care Document ---
Author Name [facility] Organization [facility] Care Team Providers Care Marketing Copywriter Name Role Phone [facility] Unavailable Unavailable Problems Combined list of problems from Department of [facility] and [facility] facilities. It does not include entries that were removed or entered in error. Problem Status Onset Date Problem Type Date of Resolution Comments Source Allergic Rhinitis ([facility] [id number]) Active Condition [facility] Anxiety ([facility] [id number]) Active Condition [facility] Depression ([facility] [id number]) Active Condition [facility] Diabetes Mellitus Type 2 ([facility] [id number]) Active Condition [facility] HTN - Hypertension ([facility] [id number]) Active Condition [facility] Hyperlipidemia ([facility] 14496058) Active Condition [facility] Hypothyroidism ([facility] [id number]) Active Condition [facility] Pain of right knee Active Condition [facility] Pes planus Active Condition [facility] surgeries Active Condition May 23 Entered By: ALYSSA HILARIO Comment: neck surgery C 2-3-4May 23, 2022 Entered By: ALYSSA HILARIO Comment: total hysterectomy 2021 Entered By: ALYSSA HILARIO Comment: cholecstectomy 2021 Entered By: ALYSSA HILARIO Comment: tonsillectomy-198 2021 Entered By: ALYSSA HILARIO Comment: Carpel tunnel b/l [facility] UI - Urinary incontinence Active Condition May 23, 2022 Entered By: ALYSSA HILARIO Comment: history of sleeve surgery [facility] Medications Combined list of outpatient medications from Department of [facility] and [facility] facilities.Medications provided include 1) outpatient medications from the last 15 months, and 2) patient-reported medications. Medication Details Route Status Patient Instructions Prescription Expires Prescription Number Last Dispense Date Ordering Provider Order Date Order Qty Source ACETAMINOPH EN 500MG TAB TAKE ONE TABLET BY MOUTH FOUR TIMES A DAY NEEDED ORAL ACTIVE HECTOR HILARIO A 2021 [facility] BUSPIRONE HCL 10MG TAB TAKE ONE TABLET BY MOUTH TWICE A DAY ORAL ACTIVE HECTOR HILARIO A 2021 [facility] CETIRIZINE HCL 10MG TAB TAKE ONE TABLET BY MOUTH ONCE A DAY ORAL ACTIVE HECTOR HILARIO A 2021 [facility] CLOBETASOL PROPIONATE 0.05% OINT,TOP APPLY LIGHTLY TO AFFECTED AREA(S) TWICE A DAY NEEDED [place] L ACTIVE HECTOR HILARIO A 2021 [facility] CYCLOBENZAP RINE HCL 10MG TAB TAKE ONE TABLET BY MOUTH THREE TIMES A DAY NEEDED ORAL ACTIVE HECTOR HILARIO A 2022 [facility] DULOXETINE HCL 60MG CAP,EC TAKE 1 CAPSULE BY MOUTH ONCE A DAY ORAL ACTIVE HECTOR HILARIO A 2021 [facility] FENOFIBRATE 67MG CAP TAKE 2 CAPSULES BY MOUTH ONCE A DAY ORAL ACTIVE HECTOR HILARIO A 2021 [facility] FISH OIL 1000MG (500MG DHA/EPA) CAP,ORAL TAKE 1 CAPSULE BY MOUTH ONCE A DAY ORAL ACTIVE HECTOR HILARIO A 2021 [facility] FLUTICASONE PROPIONATE 50MCG/SPRAY SOLN,NASAL, 16GM INSTILL 1 SPRAY IN NOSTRIL( S) ONCE A DAY NEEDED NASAL ACTIVE HECTOR HILARIO A 2021 [facility] GLIPIZIDE 10MG TAB,SA TAKE ONE TABLET BY MOUTH EVERY MORNING ORAL ACTIVE HECTOR HILARIO A 2021 [facility] GLUCOSAMINE CAP/TAB TAKE BY MOUTH ONCE A DAY ORAL ACTIVE HECTOR HILARIO A 2021 [facility] HYDROCHLORO THIAZIDE 25MG TAB TAKE ONE TABLET BY MOUTH ONCE A DAY ORAL ACTIVE HECTOR HILARIO A 2021 [facility] LEVOTHYROXI NE NA 100MCG TAB (SYNTHROID) TAKE ONE TABLET BY MOUTH EVERY MORNING BEFORE A MEAL ORAL ACTIVE HECTOR HILARIO A 2021 [facility] METFORMIN HCL 500MG 24HR TAB,SA TAKE TWO TABLETS BY MOUTH ONCE A DAY ORAL ACTIVE HECTOR HILARIOA A 2021 [facility] MULTIVITAMI NS CAP/TAB TAKE ONE TABLET BY MOUTH ONCE A DAY ORAL ACTIVE HECTOR HILARIO A 2021 [facility] NYSTATIN [id number]/G M PWDR,TOP APPLY LIGHTLY TO AFFECTED AREA(S) THREE TIMES A DAY [place] L ACTIVE HECTOR HILARIO A 2021 [facility] Allergies, Adverse Reactions, Alerts Combined list of allergies from Department of Defense and Veterans Affairs facilities. It does not include entries that were removed or entered in error. Substance Category Reaction Severity Reaction type Status Date Reported Comments Source DUST MITE FECES Propensity to adverse reaction (finding) Rhinitis active [address] [place] [address] MOLD Propensity to adverse reaction (finding) Rhinitis active [address] [place] [address] POLLEN Propensity to adverse reaction (finding) Rhinitis active [address] [place] [address] Social History Combined list of available smoking, tobacco, and other social history from Department of [facility] and [facility] facilities. Social History Type Response Date Comment Sourc e Tobacco smoking status NHIS [facility]-TOBACCO FORMER USER 05/18/2022 [facility] of [facility]20[facility]
--- OUTSIDE RECORDS SUMMARY | 2024-06-23 15:30 | XMS_ITS | Patient Health Summary ---
Author Organization [facility] Address [address] [place] [address] Care Team Providers Care Stucco Laborer Name Role Phone Alex Browne MD Primary Care Provider Unav ailable Note from [facility],non-owned Affiliates and Associated Physician Practices is amultiple site organization consisting of ambulatory clinics and hospital sitesin [place], [place], [place] and [place]. This disclosure is being madepursuant to the Care Everywhere program and may not contain all information available regarding this patient. Last updated 18.[facility] Allergies * Levofloxacin(Other) Medications * Be aware [...] AM CDT Medical Devices Implanted Type Area Assistant Softball Coach Device Identifier Shelf Expiration Date Model / Serial / Lot Slng Turney Subfascial Implanted:Qty: 1 on 09/23/2013 by Briseyda Brown MD at [facility] N/A: [employer] 06/07/2016 [id number] / / [id number] Description:Implanted mid-ur ethral Procedures * PATHOLOGY TISSUE [...] Case Report Surgical Pathology Report ? Case: [id number] ? -- Authorizing Provider: ??Briseyda Brown MD ?Ordering Provider: ?? Briseyda Brown MD ? Ordering Location: ? [facility] ? Collected: ? 09/23/2013 11:35 AM ? Pathologist: ? Yue Willard MD ? Received: ?09/23/2013 12:24 PM ?Signed Out: ?09/24/2013 ??1:38 PM (Final) ? Specimen: ?Labia Biopsy ? 09/24/2013 1:38 PM CDT [facility] Final Diagnosis 1. ??Vulva, biopsy: -- ??Lichen sclerosis et atrophicus -- ??Negative for dysplasia /elder 09/24/2013 1:38 PM T [facility] Gross Description Submitted fixed in formalin in one container labeled with the patient's name, Kristal Bustos, and vulva biopsy are two soft, yellow-mullen tissue fragments each measuring 0.4 cm in greatest dimension. The specimen is submitted in toto as A1. JULIANA/andrew 09/24/2013 1:38 PM CDT [facility] Microscopic Description Microscopic examination reveals vulvar tissue surfaced by stratified squamous mucosa that is atrophic and free of cytologic atypia or dysplasia. ??The underlying tissue shows hyalinization and homogenization ??with a mild chronic inflammatory infiltrate noted. 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 ??There is no evidence of granulomata or neoplasia. /alj 09/24/2013 1:38 PM CDT [facility] Synoptic Report 09/24/2013 1:38 PM CDT [facility] Pathology/Cytolo gy BIOPSY SPECIMEN / Unknown 09/23/2013 11:35 AM CDT 09/23/2013 12:24 PM CDT Briseyda Brown MD LAB - PATHOLOGY/CYTO LOGY ORDERABLES [facility] [address] [place] [address] * (ABNORMAL) BASIC METABOLIC PANEL (CALCIUM TOTAL) (09/23/2013 9:35 AM CDT) Glucose 97 74 - 106 mg/dL 09/23/2013 10:45 AM CDT [facility] Sodium 140 136 - 145 mmol/L 09/23/2013 10:45 AM CDT [facility] Potassium 3.7 3.5 - 5.1 mmol/L 09/23/2013 10:45 AM CDT [facility] Chloride 108(H) 98 - 107 mmol/L 09/23/2013 10:45 AM CDT [facility] CO2 27 22 - 31 mmol/L 09/23/2013 10:45 AM CDT [facility] Calcium 9.2 8.5 - 10.1 mg/dL 09/23/2013 10:45 AM CDT [facility] Anion Gap 5 5 - 15 mmol/L 09/23/2013 10:45 AM CDT [facility] BUN 20 7 - 21 mg/dL 09/23/2013 10:45 AM CDT [facility] Creatinine 0.63 0.50 - 1.30 mg/dL 09/23/2013 10:45 AM CDT [facility] eGFR by MDRD >60 >60 mL/min/1.7 3m2 09/23/2013 10:45 AM CDT [facility] eGFR by MDRD >60 >60 mL/min/1.7 3m2 09/23/2013 10:45 AM CDT [facility] Blood BLOOD SPECIMEN / Unknown Venipuncture / Unknown 09/23/2013 9:35 AM CDT 09/23/2013 10:05 AM CDT Lloyd Alexander DO LAB - CHEMISTRY BRYCE ROSAS [facility] [address] [place] [address] * PATHOLOGY/GENETICS HISTORICAL-ONBASE (09/23/2013) 09/23/2013 Narrative [facility] - 09/25/2013 9:00 AM CDT Historical Provider LAB - CHEMISTRY O RDERABLES [facility] [address] * (ABNORMAL) CBC W AUTO DIFFERENTIAL (09/03/2013 11:26 AM CDT) WBC 6.2 4.4 - 10.7 x10^9/L 09/03/2013 12:06 PM CDT [facility] RBC 5.30(H) 3.80 - 5.20 x10^12/L 09/03/2013 12:06 PM CDT [facility] Hemoglobin 15.8(H) 12.0 - 15.6 gm/dL 09/03/2013 12:06 PM CDT [facility] Hematocrit 46.5(H) 35.9 - 45.5 % 09/03/2013 12:06 PM CDT [facility] MCV 87.7 80.7 - 98.3 fl 09/03/2013 12:06 PM CDT [facility] MCH 29.8 26.7 - 34.0 pg 09/03/2013 12:06 PM CDT [facility] MCHC 34.0 30.8 - 35.9 gm/dL 09/03/2013 12:06 PM CDT [facility] Platelet Count 282 153 - 416 x10^9/L 09/03/2013 12:06 PM CDT [facility] RDW-CV 13.2 12.1 - 14.9 % 09/03/2013 12:06 PM CDT [facility] MPV 10.0 9.4 - 12.9 fl 09/03/2013 12:06 PM CDT [facility] Neutrophils % 58.1 44.0 - 73.0 % 09/03/2013 12:06 PM CDT [facility] Lymphocytes % 28.2 20.0 - 43.0 % 09/03/2013 12:06 PM CDT [facility] Monocytes % 10.9 5.0 - 13.0 % 09/03/2013 12:06 PM CDT [facility] Eosinophils % 1.8 0.0 - 6.0 % 09/03/2013 12:06 PM CDT [facility] Basophils % 0.5 0.0 - 2.0 % 09/03/2013 12:06 PM CDT [facility] Immature Granulocytes 0.5 0 - 1 % 09/03/2013 12:06 PM CDT [facility] Neutrophil Absolute 3.58 2.01 - 7.14 x10^9/L 09/03/2013 12:06 PM CDT [facility] Lymphocytes Absolute 1.74 1.07 - 3.94 x10^9/L 09/03/2013 12:06 PM CDT [facility] Monocytes Absolute 0.67 0.26 - 1.07 x10^9/L 09/03/2013 12:06 PM CDT [facility] Eosinophils Absolute 0.11 0 - 0.47 x10^9/L 09/03/2013 12:06 PM CDT [facility] Basophils Absolute 0.03 0 - 0.08 x10^9/L 09/03/2013 12:06 PM CDT [facility] Immature Granulocytes Absolute 0.03 0.00 - 0.06 x10^9/L 09/03/2013 12:06 PM CDT [facility] nRBC Auto 0 /100 WBC 09/03/2013 12:06 PM CDT [facility] Blood BLOOD SPECIMEN / Unknown Venipuncture / Unknown 09/03/2013 11:26 AM CDT 09/03/2013 11:42 AM CDT Briseyda rBown MD LAB - HEMATOLOGY ORD ERABLES Performing Organization Address [facility]/State/[facility] Co de Phone Number [facility] [address] [place] [address] * XR CHEST PA AND LATERAL ROUTINE [...] RDERABLES * LAB HISTORICAL RESULTS-ONBASE (09/03/2013) 09/03/2013 [facility] - 09/04/2013 10:30 AM CDT Historical Provider LAB - CHEMISTRY O RDERABLES Performing Organization Address [facility] Co de Phone Number [facility] [address] * URINALYSIS - POINT OF CARE (AMB) [facility] (09/03/2013) Only the most recent of2 resultswithin the time period is included. Glucose [facility] Bilirubin [facility]A [facility] Ketones [facility] Specific [place] [facility] Blood Urine [facility] pH [facility] Protein [facility] Urobilinogen [facility] Nitrite [facility] WBC [facility] Urine specimen (specimen) 09/03/2013 Narrative [facility] - 09/03/2013 PVR approx 10 cc's dip positive for leukocytes ( mod amount ) culture sent Briseyda Brown MD LAB - POINT OF CARE ORDERABLES Performing Organization Address [facility]/ZIP Co de Phone Number [facility] * CULTURE URINE COMPREHENSIVE (09/03/2013 12:00 AM CDT) Culture Urine Comprehensive Final report [facility] ([employer]) Result 1 Escherichia coli [facility] ([facility]) Comment:1,000 Colonies/mL Antimicrobial Susceptibility [facility] ([employer]) Comment: ?? S = Susceptible; I = [...] (specimen) 09/03/2013 09/03/2013 5:07 PM CDT Narrative [facility] ([facility]) - 09/05/2013 3:21 PM CDT From a straight cath Performed at: ??01 - [facility] [place] [id number] [facility], [place], [place] ??[id number] Post Hole Digger: Jose M Armas MD, Phone: ??[phone] Briseyda Brown MD LAB - MICROBIOLOGY O RDERABLES [facility] ([facility]) Care Teams Stucco Laborer Relationship Specialty Start Date End Date Alex Browne MD PCP - General Family Medicine 09/03/13
--- OUTSIDE RECORDS SUMMARY | 2024-06-23 15:30 | XMS_ITS | Clinical Summary ---
Author Organization [facility] Address [address] [place] [address] [place] [address] Care Team Providers Care Vice President Commercial Bank Name Role Phone Alex Browne MD Primary Care Provider Unav ailable Source Comments [facility],non-owned Affiliates and Associated Physician Practices is amultiple site organization consisting of ambulatory clinics and hospital sitesin [place], [place], [place] and [place]. This disclosure is being madepursuant to the Care Everywhere program and may not contain all information available regarding this patient. Last updated 18.[employer] Allergies Active Allergy Reactions Criticality Noted Date [...] this topic Medical Devices Implanted Type Area Database Administration Project Manager Device Identifier Shelf Expiration Date Model / Serial / Lot Slng Cohutta Subfascial Implanted:Qty: 1 on 09/23/2013 by Briseyda Brown MD at [facility] N/A: [facility] [employer] [facility] 06/07/2016 [id number] / / [id number] Description:Implanted mid-ur ethral Care Teams Vice President Commercial Bank Relationship Specialty Start Date End Date Alex Browne MD PCP - General Family Medicine 09/03/13
--- OUTSIDE RECORDS SUMMARY | 2024-06-23 15:30 | XMS_ITS | Encounter Summary ---
Author Organization [facility] Address [address] [place] [address] Care Team Providers Care Channel Marketing Specialist Name Role Phone Alex Browne MD Primary Care Provider Unav ailable Encounter Details Date Type Department Care Team (Latest Contact Info) Description 09/03/2013 10:50 AM CDT - 09/03/2013 11:59 PM CDT Hospital Encounter [facility] Health Imaging Services [address] [place] [address] Briseyda Brown MD [address] [place] [address] Discharge Disposition: Home or Self Care Social [...] - 5.20 x10^12/L 09/03/2013 12:06 PM CDT [facility] Hemoglobin 15.8(H) 12.0 - 15.6 gm/dL 09/03/2013 12:06 PM CDT [facility] Hematocrit 46.5(H) 35.9 - 45.5 % 09/03/2013 12:06 PM CDT [facility] MCV 87.7 80.7 - 98.3 fl 09/03/2013 12:06 PM CDT [facility] MCH 29.8 26.7 - 34.0 pg 09/03/2013 12:06 PM CDT [facility] MCHC 34.0 30.8 - 35.9 gm/dL 09/03/2013 12:06 PM CDT [facility] Platelet Count 282 153 - 416 x10^9/L 09/03/2013 12:06 PM CDT [facility] RDW-CV 13.2 12.1 - 14.9 % 09/03/2013 12:06 PM CDT [facility] MPV 10.0 9.4 - 12.9 fl 09/03/2013 12:06 PM CDT [facility] Neutrophils % 58.1 44.0 - 73.0 % 09/03/2013 12:06 PM CDT [facility] Lymphocytes % 28.2 20.0 - 43.0 % 09/03/2013 12:06 PM CDT [facility] Monocytes % 10.9 5.0 - 13.0 % 09/03/2013 12:06 PM CDT [facility] Eosinophils % 1.8 0.0 - 6.0 % 09/03/2013 12:06 PM CDT [facility] Basophils % 0.5 0.0 - 2.0 % 09/03/2013 12:06 PM CDT [facility] Immature Granulocytes 0.5 0 - 1 % 09/03/2013 12:06 PM CDT [facility] Neutrophil Absolute 3.58 2.01 - 7.14 x10^9/L 09/03/2013 12:06 PM CDT [facility] Lymphocytes Absolute 1.74 1.07 - 3.94 x10^9/L 09/03/2013 12:06 PM CDT [facility] Monocytes Absolute 0.67 0.26 - 1.07 x10^9/L 09/03/2013 12:06 PM CDT [facility] Eosinophils Absolute 0.11 0 - 0.47 x10^9/L 09/03/2013 12:06 PM CDT [facility] Basophils Absolute 0.03 0 - 0.08 x10^9/L 09/03/2013 12:06 PM CDT [facility] Immature Granulocytes Absolute 0.03 0.00 - 0.06 x10^9/L 09/03/2013 12:06 PM CDT [facility] nRBC Auto 0 /100 WBC 09/03/2013 12:06 PM CDT [facility] Blood BLOOD SPECIMEN / Unknown Venipuncture / Unknown 09/03/2013 11:26 AM CDT 09/03/2013 11:42 AM CDT Briseyda Brown MD LAB - HEMATOLOGY ORD ERABLES Performing Organization Address City/State/[place] Co de Phone Number [facility] [address] [place] [address] * XR CHEST PA AND LATERAL ROUTINE [...] chronicus documented in this encounter Care Teams Channel Marketing Specialist Relationship Specialty Start Date End Date Alex Browne MD PCP - General Family Medicine 09/03/13 documented as of this encounter
--- OUTSIDE RECORDS SUMMARY | 2024-06-23 15:30 | XMS_ITS | Encounter Summary ---
Author Organization [facility] Address [address] [place] [address] Care Team Providers Care Technical Solutions Engineer Name Role Phone Alex Browne MD Primary Care Provider Unav ailable Reason for Visit * Auth/Cert - Closed Specialty Diagnoses / Procedures Referred By Michelle lozano Referred To Contact Diagnoses Female stress incontinence Acute lymphadenitis Procedures SLING OPERATION TRANSOBTURATOR CYSTOSCOPY Referral ID Status Reason Start Date Expiration Date Visits Re quested Visits Authorized [id number] Closed 1 1 Encounter Details Date Type Department Care Team (Latest Contact Info) Description 09/23/2013 8:31 AM CDT - 09/23/2013 3:00 PM CDT Hospital Encounter [facility] [address] [place] [address] Briseyda Brown MD [address] [address] Surgery General Discharge Disposition: Home or Self [...] a problem. Phone numbers Dr. Brown - [phone] (office) [phone] (exchange) Tammy Tomlinson R.N. - [phone] Rupal Goodwin LPN - [phone] During the daytime hours, if I am not available, my partners in Urogynecology can help. They are Dr. Tammy Ballard, Dr. Lowell Harvey, Dr. Baxter. After hours, if I am not available, my partners in the Department of Obstetrics and Gynecology at [facility] will assist in answering your questions. [...] for this basename: ABORH in the last 63784 hours Component Name 09/03/13 1126 WBC 6.2 [...] 86 Leakage amount: moderate Voiding pressure study (ENGINEER PROCESS): She voided via detrusor contraction and valsalva. [...] and vulvar biopsies x2 Surgeon: Dr. Brown Sash Assembler: Jenna Nunes MD Type of anesthesia: General [...] the documentation above. Briseyda Brown MD, PhD Cold Molding Press Operator, Department of Obstetrics And Gynecology Division of Female Pelvic Medicine and Reconstructive Surgery [facility] cc: Briseyda Brown MD, PhD documented in [...] Case Report Surgical Pathology Report ? Case: [id number] ? -- Authorizing Provider: ??Briseyda Brown MD [...] for dysplasia GM/alj 09/24/2013 1:38 PM CDT [facility] Gross Description Submitted fixed in formalin in one container labeled with the patient's name, Kristal Bustos, and vulva biopsy are two soft, yellow-mullen tissue fragments each measuring 0.4 cm in greatest dimension. The specimen is submitted in toto as A1. YC/andrew 09/24/2013 1:38 PM CDT [facility] Microscopic Description Microscopic examination reveals vulvar tissue surfaced by stratified squamous mucosa that is atrophic and free of cytologic atypia or dysplasia. ??The underlying tissue shows hyalinization and homogenization ??with a mild chronic inflammatory infiltrate noted. 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 ??There is no evidence of granulomata or neoplasia. GM/alj 09/24/2013 1:38 PM CDT [facility] Synoptic Report 09/24/2013 1:38 PM CDT [facility] Pathology/Cytolo gy BIOPSY SPECIMEN / Unknown 09/23/2013 11:35 AM CDT 09/23/2013 12:24 PM CDT Briseyda Brown MD LAB - PATHOLOGY/CYTO LOGY ORDERABLES [facility] [address] [place] [address] * (ABNORMAL) BASIC METABOLIC PANEL (CALCIUM TOTAL) (09/23/2013 9:35 AM CDT) Glucose 97 74 - 106 mg/dL 09/23/2013 10:45 AM T [facility] Sodium 140 136 - 145 mmol/L 09/23/2013 10:45 AM CDT [facility] Potassium 3.7 3.5 - 5.1 mmol/L 09/23/2013 10:45 AM [facility] Chloride 108(H) 98 - 107 mmol/L 09/23/2013 10:45 AM CDT [facility] CO2 27 22 - 31 mmol/L 09/23/2013 10:45 AM [facility] Calcium 9.2 8.5 - 10.1 mg/dL 09/23/2013 10:45 AM [facility] Anion Gap 5 5 - 15 mmol/L 09/23/2013 10:45 AM T [facility] BUN 20 7 - 21 mg/dL 09/23/2013 10:45 AM [facility] Creatinine 0.63 0.50 - 1.30 mg/dL 09/23/2013 10:45 AM CDT [facility] eGFR by MDRD >60 >60 mL/min/1.7 3m2 09/23/2013 10:45 AM T [facility] eGFR by MDRD >60 >60 mL/min/1.7 3m2 09/23/2013 10:45 AM CDT [facility] Blood BLOOD SPECIMEN / Unknown Venipuncture / Unknown 09/23/2013 9:35 AM CDT 09/23/2013 10:05 AM CDT Lloyd Alexander LAB - CHEMISTRY BRYCE ROSAS [facility] Organization Address City/State/ZIP Co de Phone Number [facility] [address] [place] [address] documented in this encounter Visit Diagnoses Diagnosis [...] [id number] (Anesthesia Volume Adjustment - Provider: Devi Pikcard APRN-PHOTOCOPIER TECHNICIAN) lactated ringers infusion (CANCELED) at 125 mL/hr, [...] MD) documented in this encounter Care Teams Technical Solutions Engineer Relationship Specialty Start Date End Date Alex Browne MD PCP - General Family Medicine 09/03/13 documented as of this encounter
--- OUTSIDE RECORDS SUMMARY | 2024-06-23 15:30 | XMS_ITS | Encounter Summary ---
Author Organization [facility] Address [address] [place] [address] Care Team Providers Care Marketing And Promotions Manager Name Role Phone Alex Browne MD Primary Care Provider Unav ailable Reason for Visit * Auth/Cert - Closed Specialty Diagnoses / Procedures Referred By Michelle lozano Referred To Contact Diagnoses Female stress incontinence Acute lymphadenitis Procedures SLING OPERATION TRANSOBTURATOR CYSTOSCOPY Referral ID Status Reason Start Date Expiration Date Visits Re quested Visits Authorized [id number] Closed 1 1 Encounter Details Date Type Department Care Team (Late st Contact Info) Description 09/23/2013 10:40 AM CDT Anesthesia Event [facility] PERIOPERATIVE [address] [place] [address] Lloyd Alexander, DO [address] [facility] [place] [address] Sarai Castellanos MD [address] [place] [address] Anesthesia Record Procedure Summary Procedure [...] this encounter Consult Notes * Alina Mccarthy APRN-PENOLOGY TEACHER - 09/23/2013 10:03 AM CDT Pre-anesthesia Evaluation [...] for this basename: SODIUM:3,POTASSIUM:3,CHLORIDE:3,CO2:3,BUN:3,CREATININE:3,GLUCOSE:3,CALCIUM:3 in the last 76399 hours Component Name 09/03/13 1126 WBC 6.2 [...] patches documented in this encounter Care Teams Marketing And Promotions Manager Relationship Specialty Start Date End Date Alex Browne MD PCP - General Family Medicine 09/03/13 documented as of this encounter
--- OUTSIDE RECORDS SUMMARY | 2024-06-23 15:30 | XMS_ITS | Encounter Summary ---
Author Organization [facility] Address [facility] [place] [address] Care Team Providers Care Director Of Strategic Programs Name Role Phone Alex Browne MD Primary Care Provider Unav ailable Reason for Visit * Auth/Cert - Closed Specialty Diagnoses / Procedures Referred By Michelle lozano Referred To Contact Diagnoses Female stress incontinence Acute lymphadenitis Procedures SLING OPERATION TRANSOBTURATOR CYSTOSCOPY Referral ID Status Reason Start Date Expiration Date Visits Re quested Visits Authorized [id number] Closed 1 1 Encounter Details Date Type Department Care Team (Late st Contact Info) Description 09/23/2013 10:30 AM CDT - 09/23/2013 12:00 PM CDT Surgery [facility] [address] [place] [address] Briseyda Brown MD [address] [place] [address] SLING OPERATION TRANSOBTURATOR Surgery Details Date/Time Status Location OR Service Patient Class Case Class Case Type Trauma Case? 09/23/2013 10:30 AM Posted [facility] MA[facility] OR OR 10 Gynecology Surgery Day [...] a problem. Phone numbers Dr. Brown - [phone] (office) [phone] (exchange) Tammy Tomlinson R.N. - [phone] Rupal Goodwin LPN - [phone] During the daytime hours, if I am not available, my partners in Urogynecology can help. They are Dr. Tammy Ballard, Dr. Lowell Harvey, Dr. Baxter. After hours, if I am not available, my partners in the Department of Obstetrics and Gynecology at [facility] will assist in answering your questions. [...] for this basename: ABORH in the last 50922 hours Component Name 09/03/13 1126 WBC 6.2 [...] 86 Leakage amount: moderate Voiding pressure study (ORDERING BOX OPERATOR): She voided via detrusor contraction and valsalva. [...] and vulvar biopsies x2 Surgeon: Dr. Brown Supervisor Of Operations: Jenna Nunes MD Type of anesthesia: General Complications: none EBL: 75 cc Urine output: 50 cc Drains: sandra catheter IV Fluids: crystalloid 1000 cc Brief findings: Intact bladder with bilateral ureteral jets noted on cystoscopy. The patient was taken to the operating room where general anesthesia was found to be adequate. She was then positioned in the dorsal lithotomy position in [facility]. She was prepped and draped in the [...] the documentation above. Briseyda Brown MD, PhD Jacker Feeder, Department of Obstetrics And Gynecology Division of Female Pelvic Medicine and Reconstructive Surgery [facility] cc: Briseyda Brown MD, PhD documented [...] Case Report Surgical Pathology Report ? Case: [id number] ? -- Authorizing Provider: ??Briseyda Brown MD [...] as A1. JULIANA/andrew 09/24/2013 1:38 PM CDT [facility] Microscopic Description Microscopic examination reveals vulvar tissue surfaced by stratified squamous mucosa that is atrophic and free of cytologic atypia or dysplasia. ??The underlying tissue shows hyalinization and homogenization ??with a mild chronic inflammatory infiltrate noted. 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 ??There is no evidence of granulomata or neoplasia. GM/alj 09/24/2013 1:38 PM CDT [facility] Synoptic Report 09/24/2013 1:38 PM CDT [facility] Pathology/Cytolo gy BIOPSY SPECIMEN / Unknown 09/23/2013 11:35 AM CDT 09/23/2013 12:24 PM CDT Briseyda Brown MD LAB - PATHOLOGY/CYTO LOGY ORDERABLES [facility] [address] [place] [address] * (ABNORMAL) BASIC METABOLIC PANEL (CALCIUM TOTAL) (09/23/2013 9:35 AM CDT) Glucose 97 74 - 106 mg/dL 09/23/2013 10:45 AM CDT [facility] Sodium 140 136 - 145 mmol/L 09/23/2013 10:45 AM CDT [facility] Potassium 3.7 3.5 - 5.1 mmol/L 09/23/2013 10:45 AM CDT [facility] Chloride 108(H) 98 - 107 mmol/L 09/23/2013 10:45 AM CDT [facility] CO2 27 22 - 31 mmol/L 09/23/2013 10:45 AM CDT [facility] Calcium 9.2 8.5 - 10.1 mg/dL 09/23/2013 10:45 AM CDT [facility] Anion Gap 5 5 - 15 mmol/L 09/23/2013 10:45 AM CDT [facility] BUN 20 7 - 21 mg/dL 09/23/2013 10:45 AM CDT [facility] Creatinine 0.63 0.50 - 1.30 mg/dL 09/23/2013 10:45 AM CDT [facility] eGFR by MDRD >60 >60 mL/min/1.7 3m2 09/23/2013 10:45 AM CDT [facility] eGFR by MDRD >60 >60 mL/min/1.7 3m2 09/23/2013 10:45 AM CDT [facility] Blood BLOOD SPECIMEN / Unknown Venipuncture / Unknown 09/23/2013 9:35 AM CDT 09/23/2013 10:05 AM CDT Lloyd Alexander DO LAB - CHEMISTRY BRYCE ROSAS Performing Organization Address City/State/[facility] Co de Phone Number [facility] [address] [place] [address] documented in this encounter Visit Diagnoses Diagnosis [...] ($ Given - Prov ider: Devi Pickard APRN-AD CLERK) scopolamine (TRANSDERM-SCOP) 1.5 MG patch 1.5 mg [...] MD) documented in this encounter Care Teams Director Of Strategic Programs Relationship Specialty Start Date End Date Alex Browne MD PCP - General Family Medicine 09/03/13 documented as of this encounter
--- OUTSIDE RECORDS SUMMARY | 2024-06-23 15:30 | XMS_ITS | Referral Summary ---
Author Organization [facility] Address [address] [place] [address] [place] [address] Care Team Providers Care Anesthesiology Teacher Name Role Phone Alex Browne MD Primary Care Provider Unav ailable Source Comments [facility],non-owned Affiliates and Associated Physician Practices is amultiple site organization consisting of ambulatory clinics and hospital sitesin [place], [place], [place] and [place]. This disclosure is being madepursuant to the Care Everywhere program and may not contain all information available regarding this patient. Last updated 18.[facility] Allergies Active Allergy Reactions Criticality Noted Date [...] on file Medical Devices Implanted Type Area Associate Professor Of Surgery Device Identifier Shelf Expiration Date Model / Serial / Lot Slng [place] Subfascial Implanted:Qty: 1 on 09/23/2013 by Briseyda Brown MD at [facility] N/A: Vagina [employer] 06/07/2016 [id number] / / [id number] Description:Implanted mid-ur ethral Care Teams Anesthesiology Teacher Relationship Specialty Start Date End Date Alex Browne MD PCP - General Family Medicine 09/03/13
--- OUTSIDE RECORDS SUMMARY | 2024-06-23 15:31 | XMS_ITS | Encounter Summary ---
Author Organization [facility] Address [address] [place] [address]. [place], [place] [address] [place] [address] Care Team Providers Care Rn Child Name Role Phone Franny Dolan PA-C Primary Care Provider +1- [phone] Encounter Details Date Type Department Care Team [...] [facility] Family [facility] - [place] [address] [place] [phone] Franny Dolan PA-C [address] [place] [phone] documented as of this encounter Visit Diagnoses Not on filedocumented in this encounter Additional Health Concerns Assessment Noted Time PHQ-9 Depression Total Score: 22 024 9:46 AM CDT documented as of this encounter Care Teams Rn Child Relationship Specialty Start Date End Date Franny Dolan PA-C [address] [place] [address] PCP - General PHYSICIAN ASSISTANT COACH 02/05/21 documented as of this encounter
--- OUTSIDE RECORDS SUMMARY | 2024-06-23 15:31 | XMS_ITS | Encounter Summary ---
Author Organization [facility] Address [address] [place] [address]. [place], [place] [address] [place] [address] Care Team Providers Care Manager Personal Name Role Phone Franny Dolan PA-C Primary Care Provider +1- [phone] Encounter Details Date Type Department Care Team [...] [facility] Family Medicine - [place] [address] [place] [phone] Franny Dolan PA-C [address] [place] [address] documented as of this encounter Visit Diagnoses Not on filedocumented in this encounter Additional Health Concerns Assessment Noted Time PHQ-9 Depression Total Score: 22 024 9:46 AM CDT documented as of this encounter Care Teams Manager Personal Relationship Specialty Start Date End Date Franny Dolan PA-C [address] [place] [address] PCP - General PHYSICIAN PARKING LOT LABORER 02/05/21 documented as of this encounter
--- OUTSIDE RECORDS SUMMARY | 2024-06-23 15:31 | XMS_ITS | Encounter Summary ---
Author Organization [facility] Address [address] [place] [address]. [place] [address] [place] [address] Care Team Providers Care Paper Gluing Operator Name Role Phone Kami Edmond PA-C Primary Care Provider +1- [phone] Reason for Visit * Reason Onset Date Comments Medication Request 10/18/2023 Encounter Details Date Type Department Care Team (Late st Contact Info) Description 10/18/2023 Telephone [facility] Family Medicine - [place] [address] [place] [address] Kami Edmond PA-C [address] [place] [address] Medication Request Social History Tobacco [...] like this sent to the following pharmacy: [facility] - [address] [address] The next office visit: Next visit with KAMI EDMOND in FAMILY PRACTICE is on: 11/28/2023 in [facility] The last office visit: Last visit with KAMI EDMOND in FAMILY PRACTICE was on: 08/28/2023 in [facility] documented in this encounter Plan of Treatment Upcoming Encounters Date Type Department Care Team (Late st Contact Info) Description 11/07/2024 9:40 AM CDT Office Visit [facility] Family Medicine - [place] [phone] Kami Edmond PA-C [address] [place] [address] documented as of this encounter Visit Diagnoses Diagnosis Acquired hypothyroidism Unspecified hypothyroidism Essential hypertension Unspecified essential hypertension documented in this encounter Additional Health Concerns Assessment Noted Time PHQ-9 Depression Total Score: 13 023 8:53 AM SLEEVE TURNER documented as of this encounter Care Teams Paper Gluing Operator Relationship Specialty Start Date End Date Kami Edmond PA-C [address] [place] [address] PCP - General PHYSICIAN [employer] WEBSPHERE PORTAL DEVELOPER 02/05/21 documented as of this encounter
--- OUTSIDE RECORDS SUMMARY | 2024-06-23 15:31 | XMS_ITS | Encounter Summary ---
Author Organization [facility] Address [address] [place] [address]. [place], [place] [address] [place] [address] Care Team Providers Care Chemical Dependency Therapist Name Role Phone Franny Dolan PA-C Primary Care Provider +1- [phone] Encounter Details Date Type Department Care Team [...] [facility] Family Medicine - [place] [address] [place] [phone] Franny Dolan PA-C [address] [place] [address] documented as of this encounter Visit Diagnoses Not on filedocumented in this encounter Additional Health Concerns Assessment Noted Time PHQ-9 Depression Total Score: 13 023 8:53 AM ACADEMIC SUCCESS COORDINATOR documented as of this encounter Care Teams Chemical Dependency Therapist Relationship Specialty Start Date End Date Franny Dolan PA-C [address] [place] [address] PCP - General PHYSICIAN DEVELOPER AUTOMATIC 02/05/21 documented as of this encounter
--- OUTSIDE RECORDS SUMMARY | 2024-06-23 15:31 | XMS_ITS | Encounter Summary ---
Author Organization [facility] Address [address] [place] [address]. [place] [address] [place] [address] Care Team Providers Care Wig Stylist Name Role Phone Franny Dolan PA-C Primary Care Provider +1- [phone] Reason for Visit * Reason Comments Mammogram [...] [facility] Family Medicine - [place] [address] [place] [phone] Franny Dolan PA-C [address] [place] [address] documented as of this encounter Procedures Procedure [...] documented as of this encounter Care Teams Wig Stylist Relationship Specialty Start Date End Date Franny Dolan PA-C [address] [place] [address] PCP - General PHYSICIAN FRUIT AND VEGETABLE PARER 02/05/21 documented as of this encounter
--- OUTSIDE RECORDS SUMMARY | 2024-06-23 15:31 | XMS_ITS | Encounter Summary ---
Author Organization [facility] Address [address] [place] [address]. [place], [place] [phone] [place] [address] Care Team Providers Care Research Associate Policy Name Role Phone Franny Dolan PA-C Primary Care Provider +1- [phone] Encounter Details Date Type Department Care Team [...] AM CDT Office Visit [facility] Family Medicine - [place] [address] [place] [phone] Franny Dolan PA-C [address] [place] [address] documented as of this encounter Visit Diagnoses Not on filedocumented in this encounter Additional Health Concerns Assessment Noted Time PHQ-9 Depression Total Score: 13 023 8:53 AM BUTTON INSPECTOR documented as of this encounter Care Teams Research Associate Policy Relationship Specialty Start Date End Date Franny Dolan PA-C [address] [place] [address] PCP - General PHYSICIAN ASSISTANT ASSOCIATE FULL PROFESSOR 02/05/21 documented as of this encounter
--- OUTSIDE RECORDS SUMMARY | 2024-06-23 15:31 | XMS_ITS | Encounter Summary ---
Author Organization [facility] Address [address] [place] [address]. [place], [place] [address] [place] [address] Care Team Providers Care Harvest Worker Name Role Phone Franny Dolan PA-C Primary Care Provider +1- [phone] Encounter Details Date Type Department Care Team [...] [facility] Family Medicine - [place] [address] [place] [phone] Franny Dolan PA-C [address] [place] [address] [phone] documented as of this encounter Visit Diagnoses Not on filedocumented in this encounter Additional Health Concerns Assessment Noted Time PHQ-9 Depression Total Score: 22 024 9:46 AM CDT documented as of this encounter Care Teams Harvest Worker Relationship Specialty Start Date End Date Franny Dolan PA-C [address] [place] [address] PCP - General PHYSICIAN EMD SPECIAL EDUCATION TEACHER 02/05/21 documented as of this encounter
--- OUTSIDE RECORDS SUMMARY | 2024-06-23 15:31 | XMS_ITS | Encounter Summary ---
Author Organization [facility] Address [address] [place] [address]. [place] [address] [place] [address] Care Team Providers Care Sales Warehouse Driver Name Role Phone Kami Edmond PA-C Primary Care Provider +1- [phone] Reason for Visit * Reason Comments Hypertension Hyperlipidemia Diabetes Pt presents for foll ow up with labs Encounter Details Date Type Department Care Team (Late st Contact Info) Description 11/28/2023 9:40 AM CDT Office Visit [facility] Family Medicine - [place] [phone] Kami Edmond PA-C [address] [place] [address] [phone] Hypertension; Hyperlipidemia; Diabetes (Pt presents for follow [...] Sleeps and eats well. She is seeing emt/dispatcher. Denies any other concerns. ROS: Review of [...] Date Chronic kidney disease Depression Diabetes mellitus ([facility]/HCC) Disease of thyroid gland Hypertension Polycythemia vera ([facility] HHS/[facility]) Past Surgical History: Procedure Laterality Date BACK [...] hyperglycemia, without long-term current use of insulin ([facility]) semaglutide (OZEMPIC) 2 mg/dose injection (PEN) 3. Morbid (severe) obesity due to excess calories ([facility]) semaglutide (OZEMPIC) 2 mg/doseinjection (PEN) 4. Generalized [...] 9:40 AM CDT Office Visit [facility] [place] Medicine - [place] [phone] Kami Edmond PA-C [address] [place] [address] documented as of this encounter Visit Diagnoses Diagnosis Essential hypertension- Primary Unspecified essential hypertension Type 2 diabetes mellitus with hyperglycemia, without long-term current use of insulin (CMS/HCC HHS/HCC) Morbid (severe) obesity due to excess calories (CMS/HCC HHS/HCC) Generalized anxiety disorder Moderate episode of recurrent major depressive disorder (CMS/[facility] HHS/HCC) documented in this encounter Additional Health Concerns Assessment Noted Time PHQ-9 Depression Total Score: 22 024 9:46 AM CDT documented as of this encounter Care Teams Sales Warehouse Driver Relationship Specialty Start Date End Date Kami Edmond PA-C [address] [place] [address] PCP - General PHYSICIAN PAGINATOR 02/05/21 documented as of this encounter
--- OUTSIDE RECORDS SUMMARY | 2024-06-23 15:31 | XMS_ITS | Clinical Summary ---
Author Organization [facility] Address [address] [place] [address]. [place] [address] [place] [address] Care Team Providers Care Stock Broker Name Role Phone Franny Dolan PA-C Primary Care Provider +1- [phone] Allergies Active Allergy Reactions Criticality Noted Date [...] hyperglycemia, without long-term current use of insulin ([facility] HHS/HCC) Take 1 tablet (500 mg [...] HHS/HCC),Morbid (severe) obesity due to excess calories ([facility]/HCC HHS/HCC) INJECT 2MG INTO THE SKIN ONCE A WEEK 9 mL 05/13/20 24 Active fenofibrate micronized (LOFIBRA) 134 MG capsuleIndication s:Mixed hyperlipidemia TAKE 1 CAPSULE DAILY WITH BREAKFAST 90 capsule 3 06/11/20 24 Active glipiZIDE XL (GLUCOTROL XL) 10 MG 24 hr tabletIndications :Type 2 diabetes mellitus with hyperglycemia, without long-term current use of insulin ([facility]/HCC HHS/HCC) TAKE 1 TABLET DAILY WITH BREAKFAST. DO NOT BREAK OR CRUSH TABLET 90 tablet 3 06/11/20 24 Active glipiZIDE XL 10 MG 24 hr tabletIndications :Type 2 diabetes mellitus with hyperglycemia, without long-term current use of insulin ([facility]/HCC HHS/HCC) Take 1 tablet (10 mg total) [...] Type 2 diabetes mellitus wit h hyperglycemia ([facility]) 05/30/2022 Generalized anxiety disorder 03/30/2022 Morbid (severe) obesity due to excess calories ([facility]) 03/02/2022 Body mass index (BMI) 45.0-49.9, adult ([facility]) 03/02/2022 Allergic conjunctivitis of both eyes 11/30/2021 Yeast infection of the skin 08/30/2021 Fatty liver 03/21/2021 Acquired hypothyroidism 02/09/2021 Allergies 02/09/2021 Moderate episode of recurren t major depressive disorder ([facility]) 02/09/2021 Essential hypertension 02/09/2021 Hyperlipidemia 02/09/2021 NIRANJAN (obstructive sleep apnea) 10/19/2020 Overview (02/09/2021): Last Assessment & Plan: Patient continue to wear her CPAP at 15 cm water pressure while sleeping. Her DME is [facility]. Secondary polycythemia 02/20/2018 Encounters Date Type Department Care Team Description 05/01/2024 10:40 AM IRON GUARDRAIL INSTALLER Office Visit [address] [phone] Franny Dolan PA-C Follow Up (Patient is here for follow up of lab results) 05/01/2024 Travel 03/28/2024 Scan [employer] INFO SRVCS Scanned, [facility] 03/27/[address] [address] Franny Dolan PA-C Refill Request from Last [...] Comments Blood Pressure 120/75 05/01/2024 10:47 AM IRON GUARDRAIL INSTALLER Pulse 60 05/01/2024 10:47 AM IRON GUARDRAIL INSTALLER Temperature 36.4 ??C (97.5 ??F) 05/01/2024 1 0:47 AM IRON GUARDRAIL INSTALLER Respiratory Rate 18 05/01/2024 10:4 7 AM IRON GUARDRAIL INSTALLER Oxygen Saturation 98% 05/01/2024 10: 47 AM IRON GUARDRAIL INSTALLER Inhaled Oxygen Concentration - - Weight 121.8 kg (268 lb 9.6 oz) 024 10:47 AM IRON GUARDRAIL INSTALLER Height 162.6 cm (5' 4 ) 05/01/2024 10:4 7 AM IRON GUARDRAIL INSTALLER per pt Body Mass Index 46.11 05/01/2024 10:47 AM IRON GUARDRAIL INSTALLER Plan of Treatment Upcoming Encounters Date Type Department Care Team (Late st Contact Info) Description 11/07/2024 9:40 AM CDT Office Visit [facility] Family Medicine - [place] [phone] Franny Dolan PA-C [address] [place] [address] [phone] Health Maintenance Due Date Last Done Comments [...] hyperglycemia, without long-term current use of insulin ([facility]/HCC HHS/HCC) HEMOGLOBIN, GLYCOSYLATED Routine 04/26/2024 7:06 AM CDT Type 2 diabetes mellitus with hyperglycemia, without long-term current use of insulin (CMS/HCC HHS/HCC) MAMMOGRAM GENERIC (SCAN ORDER) 02/23/2024 LIPID PANEL Routine 08/24/2023 7:50 AM IRON GUARDRAIL INSTALLER Mixed hyperlipidemia DIABETIC RETINOPATHY EXAM (NEGATIVE)(SCAN ORDER) [...] A1C 6.0(H) <5.7 % of total Hgb [facility] [place] Comment: For someone without known diabetes, [...] Performing Organization Information: ?Site ID: SL ?Name: [facility] ?Address: [address] [place] [address] ?Director: Shante Salvador us Franny Dolan PA-C LABORATORY Final Resu lt [facility] [place] [address] [place] [address], * COMPREHENSIVE METABOLIC PANEL (04/26/2024 7:06 AM CDT) GLUCOSE 85 65 - 99 mg/dL [facility] [employer] Comment: ? Fasting reference interval BUN 12 7 - 25 mg/dL [facility] DIAGNOSTICS [facility] CREATININE S/P/B 0.76 0.50 - 1.05 mg/dL [facility] GFR ESTIMATE 85 > OR = 60 mL/min/1. 73m2 [facility] BUN CREATININE RATIO SEE NOTE: (calc) [facility] Comment: ?? Not Reported: BUN and Creatinine are within ?? reference range. ? SODIUM S/P/B 136 135 - 146 mmol/L [facility] POTASSIUM S/P/B 3.9 3.5 - 5.3 mmol/L [facility] [place] CHLORIDE S/P/B 100 98 - 110 mmol/L [facility] CO2 30 20 - 32 mmol/L [facility] CALCIUM S/P/B 9.9 8.6 - 10.4 mg/dL [facility] TOTAL PROTEIN S/P/B 6.7 6.1 - 8.1 g/dL [facility] ALBUMIN S/P/B 4.2 3.6 - 5.1 g/dL [facility] [place] GLOBULIN 2.5 1.9 - 3.7 g/dL (calc) [facility] ALBUMIN/GLOBULI N RATIO 1.7 1.0 - 2.5 (calc) [facility] BILIRUBIN TOTAL S/P/B 0.5 0.2 - 1.2 mg/dL [facility] ALKALINE PHOSPHATASE S/P/B 92 37 - 153 U/L [facility] AST 28 10 - 35 U/L [facility] ALT 29 6 - 29 U/L [facility] DIAGNOSTICS [facility] 04/26/2024 7:06 AM CDT 04/26/2024 7:07 AM CDT Narrative [facility] - 04/27/2024 7:50 AM CDT FASTING:YES FASTING: YES Resulting Agency Comment Performing Organization Information: ?Site ID: IN ?Name: [facility] ?Address: [address] [address] ?Director: Shante Salvador MD Franny Dolan PAWilliamC LABORATORY Final Resu lt [facility] TH[place] [facility] [place] [address] [address], [place] * MAMMOGRAM GENERIC (SCAN ORDER) (02/23/2024) Anatomical Region Laterality Modality Other 02/23/2024 us [facility] Scanned SCANNING Final Resu lt * LIPID PANEL (08/24/2023 7:50 AM IRON GUARDRAIL INSTALLER) CHOLESTEROL 133 <200 mg/dL [facility] HDL 58 > OR = 50 mg/dL [facility] TRIGLYCERIDES 145 <150 mg/dL [facility] LDL (CALCULATED) 52 mg/dL (calc) [facility] Comment: Reference range: <100 Desirable range <100 mg/dL for primary prevention; ?? <70 mg/dL for patients with CHD or diabetic patients with > or = 2 CHD risk factors. LDL-C is now calculated using the Prakash calculation, which is a validated novel method providing better accuracy than the Friedewald equation in the estimation of LDL-C. Trino SS et al. CELSA. 2013;310(19): 6606-7075 (http://education.BodeTree.VisuMotion/faq/WOA287) CHOL/HDL RATIO 2.3 <5.0 (calc) [facility] NON HDL CHOLESTEROL 75 <130 mg/dL (calc) [facility] Comment: For patients with diabetes plus 1 major ASCVD risk factor, treating to a non-HDL-C goal of <100 mg/dL (LDL-C of <70 mg/dL) is considered a therapeutic option. 08/24/2023 7:50 AM IRON GUARDRAIL INSTALLER 08/24/2023 7:51 AM IRON GUARDRAIL INSTALLER Narrative [facility] - 08/25/2023 3:40 AM IRON GUARDRAIL INSTALLER FASTING:YES FASTING: YES Resulting Agency Comment Performing Organization Information: ?Site ID: IN ?Name: [facility] ?Address: [address] [place] [address] ?Director: Shante Salvador MD Franny TROYC LABORATORY Final Resu lt [facility] [place] [facility] [address] [place] [address], [place] * DIABETIC RETINOPATHY EXAM (NEGATIVE)(SCAN) (04/27/2023) [employer] [facility] Scanned SCANNING Final Resu lt Performing Organization Address City/[facility]/ZIP Co de Phone Number [facility] * HEPATITIS C ANTIBODY W/RFX TO HCV RNA (01/24/2023 8:15 AM CDT) HEPATITIS C AB NON-REACT SULAIMAN NON-REACT SULAIMAN [facility] Comment: HCV antibody was non-reactive. There is no laboratory evidence of HCV infection. In most cases, no further action is required. However, if recent HCV exposure is suspected, a test for HCV RNA (test code 02286) is suggested. For additional information please refer to http://education.3D Data.VisuMotion/faq/WKT56n7 (This link is being provided for informational/ educational purposes only.) 01/24/2023 8:15 AM CDT 01/24/2023 8:17 AM CDT Narrative [facility] - 01/25/2023 3:32 AM CDT FASTING:YES FASTING: YES Resulting Agency Comment Performing Organization Information: ?Site ID: SHAMIKA ?Name: [facility] ?Address: [address] [address] ?Director: Shante Salvador MD us Franny Dolan PA-C LABORATORY Final Resu lt [facility] [address] [address], * COLONOSCOPY GENERIC (02/22/2017) 02/22/2017 Narrative 02/22/2017 Ordered by an unspecified provider. us Documents Scanned SCANNING Final Result * BONE DENSITY GENERIC (09/27/2016) Anatomical Region Laterality Modality Other 09/27/2016 Narrative 09/27/2016 Ordered by an unspecified provider. us Documents Scanned SCANNING Final Result from Last 3 Months or Most Recently Relevant to Health Maintenance Insurance MEDICARE Care Teams Stock Broker Relationship Specialty Start Date End Date Franny Dolan PA-C [address] [place] [address] PCP - General PHYSICIAN GRANITE INSTALLER 02/05/21
--- OUTSIDE RECORDS SUMMARY | 2024-06-23 15:31 | XMS_ITS | Encounter Summary ---
Author Organization [facility] Address [address] [place] [address]. [place], [place] [address] [place] [address] Care Team Providers Care Water Hydrant Installer Name Role Phone Franny Dolan PA-C Primary Care Provider +1- [phone] Encounter Details Date Type Department Care Team [...] Description 11/07/2024 9:40 AM CDT Office Visit [facility] Family Medicine - [place] [address] [place] [phone] Franny Dolan PA-C [address] [place] [phone] documented as of this encounter Visit Diagnoses Not on filedocumented in this encounter Additional Health Concerns Assessment Noted Time PHQ-9 Depression Total Score: 22 024 9:46 AM CDT documented as of this encounter Care Teams Water Hydrant Installer Relationship Specialty Start Date End Date Franny Dolan PA-C [address] [place] [address] PCP - General PHYSICIAN GAUGE CONTROLLER 02/05/21 documented as of this encounter
--- OUTSIDE RECORDS SUMMARY | 2024-06-23 15:31 | XMS_ITS | Encounter Summary ---
Author Organization [facility] Address [address] [place] [address]. [place] [address] [place] [address] Care Team Providers Care Audio Tape Librarian Name Role Phone Kami Edmond PA-C Primary Care Provider +1- [phone] Reason for Visit * Reason Comments Hypertension Hyperlipidemia Diabetes Hypothyroidism Pt presents for foll ow up w labs Encounter Details Date Type Department Care Team (Late st Contact Info) Description 08/28/2023 9:40 AM TURBINE TECHNICIAN Office Visit [facility] Family Medicine - [place] [phone] Kami Edmond PA-C [address] [place] [address] [phone] Hypertension; Hyperlipidemia; Diabetes; Hypothyroidism (Pt presents for [...] Comments Blood Pressure 135/80 08/28/2023 9:58 AM TURBINE TECHNICIAN Pulse 61 08/28/2023 9:32 AM TURBINE TECHNICIAN Temperature 36.4 ??C (97.5 ??F) 08/28/2023 9:32 AM CS T Respiratory Rate - - Oxygen Saturation 98% 08/28/2023 9:32 AM TURBINE TECHNICIAN Inhaled Oxygen Concentration - - Weight 125.2 kg (276 lb) 08/28/2023 9:32 AM TURBINE TECHNICIAN Height - - Body Mass Index 47.38 [...] Sleeps and eats well. She is seeing oiler helper. She tripped walking in June, but it [...] Chronic kidney disease Depression Diabetes mellitus (HHS/HCC) ([facility]/HCC) Disease of thyroid gland Hypertension Polycythemia vera ([facility]/HCC) Past Surgical History: Procedure Laterality Date BACK [...] hyperglycemia, without long-term current use of insulin ([facility]/H[facility]) ([facility]) COMPREHENSIVE METABOLIC PANEL HEMOGLOBIN, GLYCOSYLATED semaglutide (OZEMPIC) 1 mg/dose injection (PEN) 3. Morbid (severe) obesity due to excess calories ([facility]) semaglutide (OZEMPIC) 1 mg/dose injection (PEN) 4. Mixed hyperlipidemia 5. Acquired hypothyroidism 6. Moderate episode of recurrent major depressive disorder ([facility]) DULoxetine (CYMBALTA) 60 MG capsule 7. Generalized [...] ref. provider found PCP: KAMI EDMOND PA-C INE TECHNICIAN documented in this encounter Plan of Treatment Upcoming Encounters Date Type Department Care Team (Late st Contact Info) Description 11/07/2024 9:40 AM CDT Office Visit [facility] Medical Group Family Medicine - [place] [phone] Kami Edmond PA-C [address] [place] [phone] documented as of this encounter Procedures Procedure Name Priority Date/Time Associated Diagnosis Comments HEMOGLOBIN, GLYCOSYLATED Routine 11/23/2023 7:35 AM CDT Type 2 diabetes mellitus with hyperglycemia, without long-term current use of insulin ([facility] HHS/HCC) COMPREHENSIVE METABOLIC PANEL Routine 11/23/2023 7:35 AM CDT Essential hypertension Type 2 diabetes mellitus with hyperglycemia, without long-term current use of insulin ([facility] HHS/[facility]) documented in this encounter Results * (ABNORMAL) HEMOGLOBIN, GLYCOSYLATED (11/23/2023 7:35 AM CDT) HGB A1C 5.9(H) <5.7 % of total Hgb [facility] [place] Comment: For someone without known diabetes, [...] change in test platforms from the Garza Glaze Grinder to the Naila prema c503 may have shifted HbA1c results compared to historical results. Based on laboratory validation testing conducted at [facility], the Naila platform relative to the Garza [...] Performing Organization Information: ?Site ID: SL ?Name: [facility] ?Address: [address] [place] [address] ?Director: Shante Salvador Kami Edmond PA-C LABORATORY Final Resu lt [facility] [employer] [address] * (ABNORMAL) COMPREHENSIVE METABOLIC PANEL (11/23/2023 7:35 AM CDT) GLUCOSE 130(H) 65 - 99 mg/dL [email or web address] [facility] Comment: ? Fasting reference interval For someone without known diabetes, a glucose value >125 mg/dL indicates that they may have diabetes and this should be confirmed with a follow-up test. BUN 14 7 - 25 mg/dL [employer] [facility] CREATININE S/P/B 0.84 0.50 - 1.05 mg/dL [employer] [facility] GFR ESTIMATE 76 > OR = 60 mL/min/1. 73m2 [employer] [facility] BUN CREATININE RATIO SEE NOTE: (calc) [employer] [facility] Comment: ?? Not Reported: BUN and Creatinine are within ?? reference range. ? SODIUM S/P/B 138 135 - 146 mmol/L [facility] [place] POTASSIUM S/P/B 4.8 3.5 - 5.3 mmol/L [facility] [place] CHLORIDE S/P/B 102 98 - 110 mmol/L [facility] [place] CO2 26 20 - 32 mmol/L [facility] [place] CALCIUM S/P/B 9.8 8.6 - 10.4 mg/dL [employer] [facility] TOTAL PROTEIN S/P/B 6.5 6.1 - 8.1 g/dL [employer] [facility] ALBUMIN S/P/B 4.2 3.6 - 5.1 g/dL [employer] [place] GLOBULIN 2.3 1.9 - 3.7 g/dL (calc) [employer] [facility] ALBUMIN/GLOBULI N RATIO 1.8 1.0 - 2.5 (calc) [employer] [place] BILIRUBIN TOTAL S/P/B 0.6 0.2 - 1.2 mg/dL [employer] [facility] ALKALINE PHOSPHATASE S/P/B 92 37 - 153 U/L [employer] [facility] AST 31 10 - 35 U/L [employer] [facility] ALT 31(H) 6 - 29 U/L [employer] [facility] 11/23/2023 7:35 AM CDT 11/23/2023 7:36 AM CDT Narrative Resulting Agency Comment Performing Organization Information: ?Site ID: [place] ?Name: [employer] ?Address: [address] [place] [address] ?Director: Shante Salvador MD us Kami Edmond PA-C LABORATORY Final Resu lt [facility] [address] [place], [place] [address] documented in this encounter Visit Diagnoses Diagnosis Essential hypertension- Primary Unspecified essential hypertension Type 2 diabetes mellitus with hyperglycemia, without long-term current use of insulin ([facility]) Morbid (severe) obesity due to excess calories ([facility]) Mixed hyperlipidemia Acquired hypothyroidism Unspecified hypothyroidism Moderate episode of recurrent major depressive disorder ([facility]) Generalized anxiety disorder Sciatica of right side Sciatica Acute otitis media, unspecified otitis media type Acute vaginitis Vaginitis and vulvovaginitis, unspecified documented in this encounter Additional Health Concerns Assessment Noted Time PHQ-9 Depression Total Score: 13 07/26/ 023 8:53 AM TURBINE TECHNICIAN documented as of this encounter Care Teams Audio Tape Librarian Relationship Specialty Start Date End Date Kami Edmond PA-C [address] [place] [phone] PCP - General PHYSICIAN HVAC SHEET METAL INSTALLER HELPER 02/05/21 documented as of this encounter
--- OUTSIDE RECORDS SUMMARY | 2024-06-23 15:31 | XMS_ITS | Encounter Summary ---
Author Organization [facility] Address [address] [place] [address]. [place], [place] [address] [place] [address] Care Team Providers Care Auto Damage Estimator Name Role Phone Franny Dolan PA-C Primary Care Provider +1- [phone] Encounter Details Date Type Department Care Team [...] OF [facility] Family Medicine - [place] [address] [place] [phone] Franny Dolan PA-C [address] [place] [address] documented as of this encounter Visit Diagnoses Not on filedocumented in this encounter Additional Health Concerns Assessment Noted Time PHQ-9 Depression Total Score: 13 023 8:53 AM RIG WELDER documented as of this encounter Care Teams Auto Damage Estimator Relationship Specialty Start Date End Date Franny Dolan PA-C [address] [place] [address] PCP - General PHYSICIAN SPRAY CEMENTER 02/05/21 documented as of this encounter
--- OUTSIDE RECORDS SUMMARY | 2024-06-23 15:31 | XMS_ITS | Encounter Summary ---
Author Organization [facility] Address [address] [place] [address]. [place], [place] [address] [place] [address] Care Team Providers Care Pharmacy Laboratory Technician Name Role Phone Franny Dolan PA-C Primary Care Provider +1- [phone] Encounter Details Date Type Department Care Team [...] [facility] Family [facility] - [place] [address] [place] [phone] Franny Dolan PA-C [address] [place] [address] documented as of this encounter Visit Diagnoses Not on filedocumented in this encounter Additional Health Concerns Assessment Noted Time PHQ-9 Depression Total Score: 13 023 8:53 AM SOLDERER BARREL RIBS documented as of this encounter Care Teams Pharmacy Laboratory Technician Relationship Specialty Start Date End Date Franny Dolan PA-C [address] [place] [address] PCP - General PHYSICIAN EMBEDDED FIRMWARE ENGINEER 02/05/21 documented as of this encounter
--- OUTSIDE RECORDS SUMMARY | 2024-06-23 15:31 | XMS_ITS | Encounter Summary ---
Author Organization [facility] Address [address] [place] [address]. [place], [place] [phone] [place] [address] Care Team Providers Care Senior Buyer Name Role Phone Franny Dolan PA-C Primary Care Provider +1- [phone] Encounter Details Date Type Department Care Team [...] Description 11/07/2024 9:40 AM CDT Office Visit [facility] Family Medicine - [place] [address] [place] [phone] Franny Dolan PA-C [address] [place] [address] documented as of this encounter Visit Diagnoses Not on filedocumented in this encounter Additional Health Concerns Assessment Noted Time PHQ-9 Depression Total Score: 13 023 8:53 AM CUSTODIAN documented as of this encounter Care Teams Senior Buyer Relationship Specialty Start Date End Date Franny Dolan PA-C [address] [place] [address] PCP - General PHYSICIAN PANTS PRESSER 02/05/21 documented as of this encounter
--- OUTSIDE RECORDS SUMMARY | 2024-06-23 15:31 | XMS_ITS | Encounter Summary ---
Author Organization [facility] Address [address] [place] [address]. [place], [place] [address] [place] [address] Care Team Providers Care Machine Heel Seat Laster Name Role Phone Franny Dolan PA-C Primary Care Provider +1- [phone] Encounter Details Date Type Department Care Team [...] [facility] Family Medicine - [place] [address] [place] [phone] Franny Dolan PA-C 100 [place] [address] documented as of this encounter Visit Diagnoses Not on filedocumented in this encounter Additional Health Concerns Assessment Noted Time PHQ-9 Depression Total Score: 13 023 8:53 AM JEWEL STRINGER documented as of this encounter Care Teams Machine Heel Seat Laster Relationship Specialty Start Date End Date Franny Dolan PA-C [address] [place] [address] PCP - General PHYSICIAN GRAIN COMBINER 02/05/21 documented as of this encounter
--- OUTSIDE RECORDS SUMMARY | 2024-06-23 15:31 | XMS_ITS | Encounter Summary ---
Author Organization [facility] Address [address] [place] [address]. [place], [place] [address] [place] [address] Care Team Providers Care Sample Worker Name Role Phone Franny Dolan PA-C Primary Care Provider +1- [phone] Encounter Details Date Type Department Care Team [...] [facility] Family Medicine - [place] [address] [place] [phone] Franny Dolan PA-C [address] [place] [phone] documented as of this encounter Visit Diagnoses Not on filedocumented in this encounter Additional Health Concerns Assessment Noted Time PHQ-9 Depression Total Score: 13 023 8:53 AM CLEATER documented as of this encounter Care Teams Sample Worker Relationship Specialty Start Date End Date Franny Dolan PA-C [address] [place] [address] PCP - General PHYSICIAN FARM CREW MEMBER 02/05/21 documented as of this encounter
--- OUTSIDE RECORDS SUMMARY | 2024-06-23 15:31 | XMS_ITS | Encounter Summary ---
Author Organization [facility] Address [address] [place] [address]. [place], [place] [address] [place] [address] Care Team Providers Care Preschool Director Name Role Phone Franny Dolan PA-C Primary Care Provider +1- [phone] Encounter Details Date Type Department Care Team [...] [facility] Family [facility] - [place] [address] [place] [phone] Franny Dolan PA-C [address] [place] [address] [phone] documented as of this encounter Visit Diagnoses Not on filedocumented in this encounter Additional Health Concerns Assessment Noted Time PHQ-9 Depression Total Score: 13 023 8:53 AM CORNER CUTTER MACHINE OPERATOR documented as of this encounter Care Teams Preschool Director Relationship Specialty Start Date End Date Franny Dolan PA-C [address] [place] [address] PCP - General PHYSICIAN TAXONOMY TEACHER 02/05/21 documented as of this encounter
--- OUTSIDE RECORDS SUMMARY | 2024-06-23 15:31 | XMS_ITS | Encounter Summary ---
Author Organization [facility] Address [address] [place] [address]. [place], [place] [address] [place] [address] Care Team Providers Care City Designer Name Role Phone Franny Dolan PA-C Primary Care Provider +1- [phone] Encounter Details Date Type Department Care Team [...] [facility] Family Medicine - [place] 100 [place] [phone] Franny Dolan PA-C 100 [place] [address] documented as of this encounter Visit Diagnoses Not on filedocumented in this encounter Additional Health Concerns Assessment Noted Time PHQ-9 Depression Total Score: 22 024 9:46 AM CDT documented as of this encounter Care Teams City Designer Relationship Specialty Start Date End Date Franny Dolan PA-C [address] [place] [address] PCP - General PHYSICIAN ACCOUNTANT MACHINE PROCESSING 02/05/21 documented as of this encounter
--- OUTSIDE RECORDS SUMMARY | 2024-06-23 15:31 | XMS_ITS | Encounter Summary ---
Author Organization [facility] Address [address] [place] [address]. [place] [address] [place] [address] Care Team Providers Care Automobile Damage Appraiser Name Role Phone Kami Edmond PA-C Primary Care Provider +1- [phone] Reason for Visit * Reason Onset Date Comments Refill Request 12/05/2023 Encounter Details Date Type Department Care Team (Late st Contact Info) Description 12/05/2023 Telephone [facility] Family Medicine - [place] 100 [place] [address] Kami Edmond PA-C 100 [place] [address] Refill Request Social History Tobacco [...] Medication and strength: cetrizine 10 mg Pharmacy: [facility] Call back #: [phone] Last office visit at this office: Last [...] [facility] Family Medicine - [place] [phone] Kami Edmond PA-C [address] [place] [address] documented as of this encounter Visit Diagnoses Diagnosis Allergies documented in this encounter Additional Health Concerns Assessment Noted Time PHQ-9 Depression Total Score: 22 024 9:46 AM CDT documented as of this encounter Care Teams Automobile Damage Appraiser Relationship Specialty Start Date End Date Kami Edmond PA-C [address] [place] [address] PCP - General PHYSICIAN NEWS INTERNSHIP 02/05/21 documented as of this encounter
--- OUTSIDE RECORDS SUMMARY | 2024-06-23 15:31 | XMS_ITS | Encounter Summary ---
Author Organization [facility] Address [address] [place] [address]. [place], [place] [address] [place] [address] Care Team Providers Care Protection Engineer Name Role Phone Franny Dolan PA-C Primary Care Provider +1- [phone] Encounter Details Date Type Department Care Team [...] [facility] Family Medicine - [place] 100 [place] [phone] Franny Dolan PA-C 100 [place] [address] documented as of this encounter Visit Diagnoses Not on filedocumented in this encounter Additional Health Concerns Assessment Noted Time PHQ-9 Depression Total Score: 13 023 8:53 AM DICTATING MACHINE TYPIST documented as of this encounter Care Teams Protection Engineer Relationship Specialty Start Date End Date Franny Dolan PA-C [address] [place] [address] PCP - General PHYSICIAN CATERPILLAR MECHANIC 02/05/21 documented as of this encounter
--- OUTSIDE RECORDS SUMMARY | 2024-06-23 15:31 | XMS_ITS | Encounter Summary ---
Author Organization [facility] Address [address] [place] [address]. [place], [place] [address] [place] [address] Care Team Providers Care Professor Of Marketing Name Role Phone Franny Dolan PA-C Primary Care Provider +1- [phone] Encounter Details Date Type Department Care Team [...] [facility] Family Medicine - [place] 100 [place] [phone] Franny Dolan PA-C 100 [place] [address] documented as of this encounter Visit Diagnoses Not on filedocumented in this encounter Additional Health Concerns Assessment Noted Time PHQ-9 Depression Total Score: 13 023 8:53 AM EXHIBIT PREPARATOR documented as of this encounter Care Teams Professor Of Marketing Relationship Specialty Start Date End Date Franny Dolan PA-C [address] [place] [address] PCP - General PHYSICIAN QUARTER BACKER 02/05/21 documented as of this encounter
--- OUTSIDE RECORDS SUMMARY | 2024-06-23 15:31 | XMS_ITS | Encounter Summary ---
Author Organization [facility] Address [address] [place] [address]. [place] [address] [place] [address] Care Team Providers Care Programming Director Name Role Phone Kami Edmond PA-C Primary Care Provider +1- [phone] Reason for Visit * Reason Onset Date Comments Medication Problem 06/30/2023 Encounter Details Date Type Department Care Team (Late st Contact Info) Description 06/30/2023 Telephone [facility] Family Medicine - [place] 100 [place] [address] Kami Edmond PA-C 100 [place] [address] Medication Problem Social History Tobacco [...] - 06/30/2023 2:39 PM CST Rx sent ER SHAKER * Lyndsey Steve - 06/30/2023 10:57 AM CST Refill request Kristal Bustos a patient of KAMI EDMOND PA-C requests a refill of DULoxetine (CYMBALTA) 60 MG capsule 90 day supply The patient would like this sent to the following pharmacy: [facility] [place] [id number] Merged with [facility] [id number] The next office visit: Next visit with KAMI EDMOND in FAMILY PRACTICE is on: 08/28/2023 in [facility] The last office visit: Last visit with KAMI EDMOND in FAMILY PRACTICE was [facility]: [facility] documented in this encounter Plan of Treatment Upcoming Encounters Date Type Department Care Team (Late st Contact Info) Description 11/07/2024 9:40 AM CDT Office Visit [facility] Family Medicine - [address] [phone] Kami Edmond PA-C [address] [place] [address] documented as of this encounter Visit Diagnoses Diagnosis Moderate episode of recurrent major depressive disorder ([facility]) Generalized anxiety disorder documented in this encounter Additional Health Concerns Assessment Noted Time PHQ-9 Depression Total Score: 13 023 8:53 AM FILLER SHAKER documented as of this encounter Care Teams Programming Director Relationship Specialty Start Date End Date Kami Edmond PA-C [address] [place] [address] PCP - General PHYSICIAN SUPERVISOR INTELLIGENCE ANALYST 02/05/21 documented as of this encounter
--- OUTSIDE RECORDS SUMMARY | 2024-06-23 15:31 | XMS_ITS | Encounter Summary ---
Author Organization [facility] Address [address] [place] [address]. [place] [address] [place] [address] Care Team Providers Care Radial Router Operator Name Role Phone Franny Dolan PA-C Primary Care Provider +1- [phone] Reason for Visit * Reason Onset Date Comments Refill Request 03/27/2024 Encounter Details Date Type Department Care Team (Late st Contact Info) Description 03/27/2024 Telephone [facility] Family Medicine - [place] 100 [place] [address] Franny Dolan PA-C 100 [place] [address] Refill Request Social History Tobacco [...] have a 2 week supply sent to [facility] in [place] to hold her over until she gets her express scripts order in documented in this encounter Plan of Treatment Upcoming Encounters Date Type Department Care Team (Late st Contact Info) Description 11/07/2024 9:40 AM CDT Office Visit [facility] Family Medicine - [place] [address] Franny Dolan PA-C [address] [place] [address] documented as of this encounter Visit Diagnoses Diagnosis Type 2 diabetes mellitus with hyperglycemia, without long-term current use of insulin ([facility])- Primary Allergies Essential hypertension Unspecified essential hypertension documented in this encounter Additional Health Concerns Assessment Noted Time PHQ-9 Depression Total Score: 22 024 9:46 AM CDT documented as of this encounter Care Teams Radial Router Operator Relationship Specialty Start Date End Date Franny Dolan PA-C [address] [place] [address] PCP - General PHYSICIAN LINING PRINTER 02/05/21 documented as of this encounter
--- OUTSIDE RECORDS SUMMARY | 2024-06-23 15:31 | XMS_ITS | Encounter Summary ---
Author Organization [facility] Address [address] [place] [address]. [place] [address] [place] [address] Care Team Providers Care Cash Office Worker Name Role Phone Franny Dolan PA-C Primary Care Provider +1- [phone] Reason for Visit * Reason Comments Procedure [...] [facility] Family Medicine - [place] 100 [place] [phone] Franny Dolan PA-C [address] [place] [address] documented as of this encounter Procedures Procedure [...] Depression Total Score: 13 023 8:53 AM MEDICAL RECORD CLERK documented as of this encounter Care Teams Cash Office Worker Relationship Specialty Start Date End Date Franny Dolan PA-C [address] [place] [address] [phone] PCP - General PHYSICIAN ROOF BOLTER 02/05/21 documented as of this encounter
--- OUTSIDE RECORDS SUMMARY | 2024-06-23 15:31 | XMS_ITS | Encounter Summary ---
Author Organization [facility] Address [address] [place] [address]. [place] [address] [place] [address] Care Team Providers Care Firearms Model Maker Name Role Phone Franny Dolan PA-C Primary Care Provider +1- [phone] Reason for Visit * Reason Comments CT [...] [facility] Family Medicine - [place] 100 [place] [phone] Franny Dolan PA-C [address] [place] [address] documented as of this encounter Procedures Procedure [...] Depression Total Score: 13 023 8:53 AM PUBLIC INFORMATION SPECIALIST documented as of this encounter Care Teams Firearms Model Maker Relationship Specialty Start Date End Date Franny Dolan PA-C [address] [place] [address]. [place] [address] PCP - General PHYSICIAN CHROME PLATER HELPER 02/05/21 documented as of this encounter
--- OUTSIDE RECORDS SUMMARY | 2024-06-23 15:31 | XMS_ITS | Encounter Summary ---
Author Organization [facility] Address [address] [place] [address]. [place], [place] [address] [place] [address] Care Team Providers Care Support Assistant Name Role Phone Kami Edmond PA-C Primary Care Provider +1- [phone] Reason for Referral * Imaging (Routine) - Authorized Specialty Diagnoses / Procedures Referred By Michelle t Referred To Contact RADIOLOGY Diagnoses Screening mammogram, encounter for Procedures MG SCREENING W JUAN WENDY DIGI Kami Edmond PA-C [address] [place] [address] Phone: tel: fax: [place] [address] Phone: tel: fax: Referral ID Status Reason Start Date Expiration Date V isits Requested Visits Authorized [id number] Authorized 01/29/2024 03/30/2025 1 1 Reason for Visit * Reason Comments Hypertension Diabetes Pt presents for foll ow up Encounter Details Date Type Department Care Team (Late st Contact Info) Description 01/29/2024 10:20 AM CDT Office Visit [facility] Group Family Medicine - [place] [phone] Kami Edmond PA-C [address] [place] [address] Hypertension; Diabetes (Pt presents for follow [...] Date Chronic kidney disease Depression Diabetes mellitus ([facility]) Disease of thyroid gland Hypertension Polycythemia vera ([facility]) Past Surgical History: Procedure Laterality Date BACK [...] Morbid (severe) obesity due to excess calories ([facility]) 3. Type 2 diabetes mellitus with hyperglycemia, without long-term current use of insulin ([facility]) HEMOGLOBIN, GLYCOSYLATED COMPREHENSIVE METABOLIC PANEL 4. Generalized anxiety disorder 5. Moderate episode of recurrent major depressive disorder ([facility]) 6. NIRANJAN (obstructive sleep apnea) 7. Screening [...] [facility] Family Medicine - [place] [phone] Kami Edmond PA-C [address] [place] [address] [phone] Scheduled Orders Name Type Priority Associated Diagnoses Orde r Schedule MG SCREENING W JUAN WENDY DIGI MAMMO Routine Screening mammogram, encounter for Expected: 01/29/2024, Expires: 03/30/2025 documented as of this encounter Procedures Procedure Name Priority Date/Time Associated Diagnosis Comments HEMOGLOBIN, GLYCOSYLATED Routine 04/26/2024 7:06 AM CDT Type 2 diabetes mellitus with hyperglycemia, without long-term current use of insulin ([facility]/HCC) COMPREHENSIVE METABOLIC PANEL Routine 04/26/2024 7:06 AM CDT Essential hypertension Type 2 diabetes mellitus with hyperglycemia, without long-term current use of insulin ([facility]/HCC) documented in this encounter Results * COMPREHENSIVE METABOLIC PANEL (04/26/2024 7:06 AM CDT) Pathologist [facility] GLUCOSE 85 65 - 99 mg/dL [employer] [facility] Comment: ? Fasting reference interval BUN 12 7 - 25 mg/dL [facility] CREATININE S/P/B 0.76 0.50 - 1.05 mg/dL [facility] GFR ESTIMATE 85 > OR = 60 mL/min/1. 73m2 [facility] [employer] [facility] BUN CREATININE RATIO SEE NOTE: (calc) [facility] Comment: ?? Not Reported: BUN and Creatinine are within ?? reference range. ? SODIUM S/P/B 136 135 - 146 mmol/L [facility] POTASSIUM S/P/B 3.9 3.5 - 5.3 mmol/L [facility] CHLORIDE S/P/B 100 98 - 110 mmol/L [facility] [place] CO2 30 20 - 32 mmol/L [facility] CALCIUM S/P/B 9.9 8.6 - 10.4 mg/dL [facility] TOTAL PROTEIN S/P/B 6.7 6.1 - 8.1 g/dL [facility] ALBUMIN S/P/B 4.2 3.6 - 5.1 g/dL [facility] GLOBULIN 2.5 1.9 - 3.7 g/dL (calc) [facility] ALBUMIN/GLOBULI N RATIO 1.7 1.0 - 2.5 (calc) [facility] BILIRUBIN TOTAL S/P/B 0.5 0.2 - 1.2 mg/dL [facility] ALKALINE PHOSPHATASE S/P/B 92 37 - 153 U/L [facility] AST 28 10 - 35 U/L [facility] ALT 29 6 - 29 U/L [facility] 04/26/2024 7:06 AM CDT 04/26/2024 7:07 AM CDT Narrative [facility] - 04/27/2024 7:50 AM CDT FASTING:YES FASTING: YES Resulting Agency Comment Performing Organization Information: ?Site ID: [id number] ?Name: [facility] ?Address: [address] [address] ?Director: Shante Salvador MD us Kami Edmond PA-C LABORATORY Final Resu lt Performing Organization Address City/[facility]/ZIP Co de Phone Number [facility] [place] [address] [address] [address], * (ABNORMAL) HEMOGLOBIN, GLYCOSYLATED (04/26/2024 7:06 AM CDT) HGB A1C 6.0(H) <5.7 % of total Hgb [employer] [facility] [place] Comment: For someone without known diabetes, [...] Performing Organization Information: ?Site ID: [id number] ?Name: [facility] ?Address: [address] [address] [address] ?Director: Shante Salvador us Kami Edmond PA-C LABORATORY Final Resu lt [facility] [place] [id number] [place] [phone], documented in this encounter Visit Diagnoses Diagnosis Essential hypertension- Primary Unspecified essential hypertension Morbid (severe) obesity due to excess calories ([facility]) Type 2 diabetes mellitus with hyperglycemia, without long-term current use of insulin ([facility]) Generalized anxiety disorder Moderate episode of recurrent major depressive disorder ([facility]) NIRANJAN (obstructive sleep apnea) Obstructive sleep apnea (adult) (pediatric) Screening mammogram, encounter for documented in this encounter Additional Health Concerns Assessment Noted Time PHQ-9 Depression Total Score: 22 024 9:46 AM CDT documented as of this encounter Care Teams Support Assistant Relationship Specialty Start Date End Date Kami Edmond PA-C [address] [place] [address]. [place] [address] PCP - General PHYSICIAN STAMPS OR COINS SALESPERSON 02/05/21 documented as of this encounter
--- OUTSIDE RECORDS SUMMARY | 2024-06-23 15:31 | XMS_ITS | Encounter Summary ---
Author Organization [facility] Address [address] [place] [address]. [place] [address] [place] [address] Care Team Providers Care Composer Teaching Artist Name Role Phone Kami Edmond PA-C Primary Care Provider +1- [phone] Reason for Visit * Reason Comments Follow Up Patient is here for follow up of lab results Encounter Details Date Type Department Care Team (Late st Contact Info) Description 05/01/2024 10:40 AM SUBMARINE DIVER Office Visit [facility] Group Family Medicine - [place] [phone] Kami Edmond PA-C [address] [place] [address] Follow Up (Patient is here for follow [...] Comments Blood Pressure 120/75 05/01/2024 10:47 AM SUBMARINE DIVER Pulse 60 05/01/2024 10:47 AM SUBMARINE DIVER Temperature 36.4 ??C (97.5 ??F) 05/01/2024 1 0:47 AM SUBMARINE DIVER Respiratory Rate 18 05/01/2024 10:4 7 AM SUBMARINE DIVER Oxygen Saturation 98% 05/01/2024 10: 47 AM SUBMARINE DIVER Inhaled Oxygen Concentration - - Weight 121.8 kg (268 lb 9.6 oz) 024 10:47 AM SUBMARINE DIVER Height 162.6 cm (5' 4 ) 05/01/2024 10:4 7 AM SUBMARINE DIVER per pt Body Mass Index 46.11 05/01/2024 10:47 AM SUBMARINE DIVER documented in this encounter Progress Notes * [...] Date Chronic kidney disease Depression Diabetes mellitus ([facility] H[facility]/HCC) Disease of thyroid gland Hypertension Polycythemia vera ([facility] H[facility]/HCC) Past Surgical History: Procedure [...] Moderate episode of recurrent major depressive disorder ([facility]) 4. Type 2 diabetes mellitus with hyperglycemia, without long-term current use of insulin ([facility]) COMPREHENSIVE METABOLIC PANEL ALBUMIN URINE [...] ref. provider found PCP: KAMI EDMOND PA-C ARINE DIVER documented in this encounter Plan of Treatment Upcoming Encounters Date Type Department Care Team (Late st Contact Info) Description 11/07/2024 9:40 AM CDT Office Visit [facility] Medical Group [place] [phone] Kami Edmond PA-C [address] [place] [address] Scheduled Orders Name Type Priority Associated Diagnoses Orde r Schedule CBC W/DIFF AUTOMATED Lab Routine Essential hypertension Expected: 10/29/2024, Expires: 05/01/2025 COMPREHENSIVE METABOLIC PANEL Lab Routine Essential hypertension Type 2 diabetes mellitus with hyperglycemia, without long-term current use of insulin ([facility]) Expected: 10/29/2024, Expires: 05/01/2025 LIPID PANEL Lab Routine Mixed hyperlipidemia Expected: 10/29/2024, Expires: 05/01/2025 ALBUMIN URINE RANDOM W/CREATININE Lab Routine Type 2 diabetes mellitus with hyperglycemia, without long-term current use of insulin ([facility]) Expected: 10/29/2024, Expires: 05/01/2025 HEMOGLOBIN, GLYCOSYLATED Lab Routine Type 2 diabetes mellitus with hyperglycemia, without long-term current use of insulin ([facility]) Expected: 10/29/2024, Expires: 05/01/2025 documented as of this encounter Visit Diagnoses Diagnosis Essential hypertension- Primary Unspecified essential hypertension Generalized anxiety disorder Moderate episode of recurrent major depressive disorder ([facility]) Type 2 diabetes mellitus with hyperglycemia, without long-term current use of insulin ([facility]) Mixed hyperlipidemia documented in this encounter Additional Health Concerns Assessment Noted Time PHQ-9 Depression Total Score: 22 024 9:46 AM CDT documented as of this encounter Care Teams Composer Teaching Artist Relationship Specialty Start Date End Date Kami Edmond PA-C [address] [place] [address] PCP - General PHYSICIAN GUN STOCK MAKER 02/05/21 documented as of this encounter
--- OUTSIDE RECORDS SUMMARY | 2024-06-23 15:31 | XMS_ITS | Encounter Summary ---
Author Organization [facility] Address [address] [place] [address]. [place], [place] [address] [place] [address] Care Team Providers Care Director Of Spa And Guest Experience Name Role Phone Franny Dolan PA-C Primary Care Provider +1- [phone] Encounter Details Date Type Department Care Team [...] [facility] Family Medicine - [place] 100 [place] [phone] Franny Dolan PA-C 100 [place] [address] documented as of this encounter Visit Diagnoses Not on filedocumented in this encounter Additional Health Concerns Assessment Noted Time PHQ-9 Depression Total Score: 22 024 9:46 AM CDT documented as of this encounter Care Teams Director Of Spa And Guest Experience Relationship Specialty Start Date End Date Franny Dolan PA-C [address] [place] [address] PCP - General PHYSICIAN DIRECT SUPPORT SPECIALIST 02/05/21 documented as of this encounter
--- OUTSIDE RECORDS SUMMARY | 2024-06-23 15:31 | XMS_ITS | Encounter Summary ---
Author Organization [facility] Address [address] [place] [address]. [place] [address] [place] [address] Care Team Providers Care Furniture Inspector Name Role Phone Kami Edmond PA-C Primary Care Provider +1- [phone] Reason for Visit * Reason Onset Date Comments Medication Request 07/18/2023 Encounter Details Date Type Department Care Team (Late st Contact Info) Description 07/18/2023 Telephone [facility] Family Medicine - [place] 100 [place] [address] Kami Edmond PA-C 100 [place] [address] Medication Request Social History Tobacco [...] - 07/18/2023 10:23 AM CST Rx sent MATION TEST ENGINEER * Lyndsey Steve - 07/18/2023 9:33 AM CST .Refill request Kristal Raygozaa Juli a patient of KAMI EDMOND PA-C requests a refill of semaglutide (OZEMPIC) 2 MG/3ML injection (PEN) she won't have enough for Monday07/21/23 Please call with any questions [phone] The patient would like this sent to the following pharmacy: [id number] - [place], [place] - [address] [facility] [phone] [facility] [address] The next office visit: Next visit with KAMI EDMOND in FAMILY PRACTICE is on: [facility] The last office visit: Last visit with KAMI EDMOND in FAMILY PRACTICE was on: 05/29/2023 in [facility] MATION TEST ENGINEER documented in this encounter Plan of Treatment Upcoming Encounters Date Type Department Care Team (Late st Contact Info) Description 11/07/2024 9:40 AM CDT Office Visit [facility] Family Medicine [address] [phone] Kami Edmond PA-C [address] [place] [address] documented as of this encounter Visit Diagnoses Diagnosis Type 2 diabetes mellitus with hyperglycemia, unspecified whether long term care administrator insulin use ([facility]) documented in this encounter Additional Health Concerns Assessment Noted Time PHQ-9 Depression Total Score: 13 023 8:53 AM AUTOMATION TEST ENGINEER documented as of this encounter Care Teams Furniture Inspector Relationship Specialty Start Date End Date Kami Edmond PA-C [address] [place] [address] PCP - General PHYSICIAN VERSE WRITER 02/05/21 documented as of this encounter
--- OUTSIDE RECORDS SUMMARY | 2024-06-23 15:31 | XMS_ITS | Encounter Summary ---
Author Organization [facility] Address [address] [place] [address]. [place] [address] [place] [address] Care Team Providers Care Picture Booker Name Role Phone Kami Edmond PA-C Primary Care Provider +1- [phone] Reason for Visit * Reason Onset Date Comments Refill Request 01/01/2024 Encounter Details Date Type Department Care Team (Late st Contact Info) Description 01/01/2024 Telephone [facility] Family Medicine - [place] 100 [place] [address] Kami Edmond PA-C 100 [place] [address] Refill Request Social History Tobacco [...] mg [facility] Call back #: [phone] Last office visit at this office: Last [...] [facility] Family Medicine - [place] [address] Kami Edmond PA-C [address] [place] [address] documented as of this encounter Visit Diagnoses Diagnosis Type 2 diabetes mellitus with hyperglycemia, without long-term current use of insulin ([facility])- Primary Mixed hyperlipidemia documented in this encounter Additional Health Concerns Assessment Noted Time PHQ-9 Depression Total Score: 22 024 9:46 AM CDT documented as of this encounter Care Teams Picture Booker Relationship Specialty Start Date End Date Kami Edmond PA-C [address] [place] [phone] PCP - General PHYSICIAN HEAD TURNING MACHINE OPERATOR 02/05/21 documented as of this encounter
--- OUTSIDE RECORDS SUMMARY | 2024-06-23 15:31 | XMS_ITS | Encounter Summary ---
Author Organization [facility] Address [address] [place] [address]. [place] [address] [place] [address] Care Team Providers Care Stationary Boiler Fireman Name Role Phone Kami Edmond PA-C Primary Care Provider +1- [phone] Reason for Visit * Reason Onset Date Comments Refill Request 11/07/2023 Encounter Details Date Type Department Care Team (Late st Contact Info) Description 11/07/2023 Telephone [facility] Family Medicine - [place] 100 [place] [address] Kami Edmond PA-C 100 [place] [address] Refill Request Social History Tobacco [...] mg Pharmacy[facility] Call back #: [phone] Pt said this is the first time [...] [facility] Family Medicine - [place] [phone] Kami Edmond PA-C [address] [place] [address] documented as of this encounter Visit Diagnoses Diagnosis Generalized anxiety disorder documented in this encounter Additional Health Concerns Assessment Noted Time PHQ-9 Depression Total Score: 13 023 8:53 AM SUPPLEMENTAL NURSE documented as of this encounter Care Teams Stationary Boiler Fireman Relationship Specialty Start Date End Date Kami Edmond PA-C [address] [place] [address] PCP - General PHYSICIAN BODY STYLIST 02/05/21 documented as of this encounter
--- OUTSIDE RECORDS SUMMARY | 2024-06-23 15:31 | XMS_ITS | Encounter Summary ---
Author Organization [facility] Address [address] [place] [address]. [place], [place] [address] [place] [address] Care Team Providers Care Gas Distribution And Emergency Clerk Name Role Phone Kami Edmond PA-C Primary Care Provider +1- [phone] Reason for Visit * Reason Comments Diabetes Hypertension Encounter Details Date Type Department Care Team (Late st Contact Info) Description 05/29/2023 10:00 AM INSULATION BATTING MACHINE OPERATOR Office Visit [facility] Family Medicine - [place] 100 [place] [phone] Kami Edmond PA-C [address] [place] [address] Diabetes; Hypertension Social History Tobacco Use [...] Comments Blood Pressure 135/80 05/29/2023 10:24 AM INSULATION BATTING MACHINE OPERATOR Pulse 61 05/29/2023 9:54 AM INSULATION BATTING MACHINE OPERATOR Temperature 36.3 ??C (97.4 ??F) 05/29/2023 9:54 AM CS T Respiratory Rate - - Oxygen Saturation 98% 05/29/2023 9:54 AM INSULATION BATTING MACHINE OPERATOR Inhaled Oxygen Concentration - - Weight 124.5 kg (274 lb 6.4 oz) 05/29/2023 9:54 AM INSULATION BATTING MACHINE OPERATOR Height - - Body Mass Index 47.1 02/13/2023 10:22 AM CDT documented in this encounter Progress Notes * Kami Edomnd PA-C - 05/29/2023 10:00 AM CST Reason [...] have CP or SOB and doesn't see staff interpreter or senior merchandiser for any chronic heart or lung conditions. Feels cymbaltais helping the depression and anxiety. Denies any crying episodes, depressive mood, anxiety or suicide thoughts on the medication. Sleeps and eats well. 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 She is seeing police detention attendant for it. ROS: Review of Systems Constitutional: [...] ref. provider found PCP: KAMI EDMOND PA-C LATION BATTING MACHINE OPERATOR documented in this encounter Plan of Treatment Upcoming Encounters Date Type Department Care Team (Late st Contact Info) Description 11/07/2024 9:40 AM CDT Office Visit [facility] Family Medicine - [place] [phone] Kami Edmond PA-C [address] [place] [phone] documented as of this encounter Procedures Procedure Name Priority Date/Time Associated Diagnosis Comments HEMOGLOBIN, GLYCOSYLATED Routine 08/24/2023 7:50 AM INSULATION BATTING MACHINE OPERATOR Type 2 diabetes mellitus with hyperglycemia, without long-term current use of insulin ([facility]) COMPREHENSIVE METABOLIC PANEL Routine 08/24/2023 7:50 AM INSULATION BATTING MACHINE OPERATOR Essential hypertension Type 2 diabetes mellitus with hyperglycemia, without long-term current use of insulin ([facility]) LIPID PANEL Routine 08/24/2023 7:50 AM INSULATION BATTING MACHINE OPERATOR Mixed hyperlipidemia CBC W/DIFF AUTOMATED Routine 08/24/2023 7:50 AM INSULATION BATTING MACHINE OPERATOR Essential hypertension THYROXINE, FREE (FT4) Routine 08/24/2023 7:50 AM INSULATION BATTING MACHINE OPERATOR Acquired hypothyroidism THYROID STIM HORMONE TSH Routine 08/24/2023 7:50 AM INSULATION BATTING MACHINE OPERATOR Acquired hypothyroidism documented in this encounter Results * (ABNORMAL) CBC W/DIFF AUTOMATED (08/24/2023 7:50 AM INSULATION BATTING MACHINE OPERATOR) WBC 5.3 3.8 - 10.8 [...] % [facility] 08/24/2023 7:50 AM INSULATION BATTING MACHINE OPERATOR 08/24/2023 7:51 AM INSULATION BATTING MACHINE OPERATOR Narrative [facility] - 08/25/2023 3:40 AM INSULATION BATTING MACHINE OPERATOR FASTING:YES FASTING: YES Resulting Agency Comment Performing Organization Information: ?Site ID: [place] ?Name: [facility] ?Address: [address] [address] ?Director: Shante Salvador MD Kami Edmond PA-C LABORATORY Final Resu lt [facility] [address] [place] [address], * THYROXINE, FREE (FT4) (08/24/2023 7:50 AM INSULATION BATTING MACHINE OPERATOR) FREE T4 1.2 0.8 - 1.8 ng/dL [facility] 08/24/2023 7:50 AM INSULATION BATTING MACHINE OPERATOR 08/24/2023 7:51 AM INSULATION BATTING MACHINE OPERATOR Narrative [facility] - 08/25/2023 3:40 AM INSULATION BATTING MACHINE OPERATOR FASTING:YES FASTING: YES Resulting Agency Comment Performing Organization Information: ?Site ID: [place] ?Name: [facility] ?Address: [address] [place] [id number] ?Director: Shante Salvador MD Kami Edmond PA-C LABORATORY Final Resu lt Performing Organization Address City/[facility]/ZIP Co de Phone Number [facility] [address] [place] [address], [place] * THYROID STIM HORMONE, TSH (08/24/2023 7:50 AM INSULATION BATTING MACHINE OPERATOR) TSH 0.71 0.40 - 4.50 mIU/L [facility] 08/24/2023 7:50 AM INSULATION BATTING MACHINE OPERATOR 08/24/2023 7:51 AM INSULATION BATTING MACHINE OPERATOR Narrative [facility] - 08/25/2023 3:40 AM INSULATION BATTING MACHINE OPERATOR FASTING:YES FASTING: YES Resulting Agency Comment Performing Organization Information: ?Site ID: [place] ?Name: [facility] ?Address: [address] [place] [id number] ?Director: Shante Salvador MD Kami M Magdaleno PA-C LABORATORY Final Resu lt Performing Organization Address City/[facility]/ZIP Co de Phone Number [facility] [address] [address], [place] * LIPID PANEL (08/24/2023 7:50 AM INSULATION BATTING MACHINE OPERATOR) CHOLESTEROL 133 <200 mg/dL [facility] HDL 58 > OR = 50 mg/dL [facility] TRIGLYCERIDES 145 <150 mg/dL [facility] LDL (CALCULATED) 52 mg/dL (calc) [facility] Comment: Reference range: <100 Desirable range <100 mg/dL for primary prevention; ?? <70 mg/dL for patients with CHD or diabetic patients with > or = 2 CHD risk factors. LDL-C is now calculated using the Prakash calculation, which is a validated novel method providing better accuracy than the Friedewald equation in the estimation of LDL-C. Trino LOPEZ et al. CELSA. 2013;310(19): 8164-2041 (http://education.[employer] [place]/faq/YAO514) CHOL/HDL RATIO 2.3 <5.0 (calc) [facility] NON HDL CHOLESTEROL 75 <130 mg/dL (calc) [facility] Comment: For patients with diabetes plus 1 major ASCVD risk factor, treating to a non-HDL-C goal of <100 mg/dL (LDL-C of <70 mg/dL) is considered a therapeutic option. 08/24/2023 7:50 AM INSULATION BATTING MACHINE OPERATOR 08/24/2023 7:51 AM INSULATION BATTING MACHINE OPERATOR Narrative [facility] - 08/25/2023 3:40 AM INSULATION BATTING MACHINE OPERATOR FASTING:YES FASTING: YES Resulting Agency Comment Performing Organization Information: ?Site ID: [place] ?Name: [facility] ?Address: [address] [place] [address] ?Director: Shante Salvador MD Kami Edmond PA-C LABORATORY Final Resu lt Performing Organization Address City/[facility]/ZIP Co de Phone Number [facility] [address] [place] [address], * HEMOGLOBIN, GLYCOSYLATED (08/24/2023 7:50 AM INSULATION BATTING MACHINE OPERATOR) HGB A1C 5.5 <5.7 % of total Hgb [facility] [place] Comment: For the purpose of screening for the presence of diabetes: <5.7% ? Consistent with the absence of diabetes 5.7-6.4% ?Consistent with increased risk for diabetes ?(prediabetes) > or =6.5% ??Consistent with diabetes This assay result is consistent with a decreased risk of diabetes. Currently, no consensus exists regarding use of hemoglobin A1c for diagnosis of diabetes in children. According to [place] Diabetes Association (ADA) guidelines, hemoglobin A1c <7.0% represents optimal control in non- diabetic patients. Different metrics may apply to specific patient populations. Standards of Medical Care in Diabetes(ADA). ? This test was performed on the [employer] Signal Processing Engineer c8000 platform. Please be advised that [facility] will move hemoglobin A1c testing to the Naila platform soon. In general, direct comparison of the results from different platforms is not recommended. 08/24/2023 7:50 AM INSULATION BATTING MACHINE OPERATOR 08/24/2023 7:51 AM INSULATION BATTING MACHINE OPERATOR Narrative [facility] - 08/25/2023 3:40 AM INSULATION BATTING MACHINE OPERATOR FASTING:YES FASTING: YES Resulting Agency Comment Performing Organization Information: ?Site ID: [place] ?Name: [facility] ?Address: [address] [place] [id number] ?Director: Shante Salvador us Kami Edmond PA-C LABORATORY Final Resu lt [facility] [employer] [address], * (ABNORMAL) COMPREHENSIVE METABOLIC PANEL (08/24/2023 7:50 AM INSULATION BATTING MACHINE OPERATOR) GLUCOSE 138(H) 65 - 99 mg/dL [facility] Comment: ? Fasting reference interval For someone without known diabetes, a glucose value >125 mg/dL indicates that they may have diabetes and this should be confirmed with a follow-up test. BUN 14 7 - 25 mg/dL [facility] CREATININE S/P/B 0.90 0.50 - 1.05 mg/dL [facility] GFR ESTIMATE 70 > OR = 60 mL/min/1. 73m2 [facility] BUN CREATININE RATIO SEE NOTE: 6 (calc) [facility] Comment: ?? Not Reported: BUN and Creatinine are within ?? reference range. ? SODIUM S/P/B 138 135 - 146 mmol/L [facility] POTASSIUM S/P/B 4.8 3.5 - 5.3 mmol/L [facility] CHLORIDE S/P/B 100 98 - 110 mmol/L [facility] CO2 30 20 - 32 mmol/L [facility] CALCIUM S/P/B 10.3 8.6 - 10.4 mg/dL [facility] TOTAL PROTEIN S/P/B 7.1 6.1 - 8.1 g/dL [facility] ALBUMIN S/P/B 4.5 3.6 - 5.1 g/dL [facility] GLOBULIN 2.6 1.9 - 3.7 g/dL (calc) [facility] ALBUMIN/GLOBULI N RATIO 1.7 1.0 - 2.5 (calc) [facility] BILIRUBIN TOTAL S/P/B 0.6 0.2 - 1.2 mg/dL [facility] ALKALINE PHOSPHATASE S/P/B 94 37 - 153 U/L [facility] AST 35 10 - 35 U/L [facility] ALT 34(H) 6 - 29 U/L [facility] 08/24/2023 7:50 AM INSULATION BATTING MACHINE OPERATOR 08/24/2023 7:51 AM INSULATION BATTING MACHINE OPERATOR Narrative [facility] - 08/25/2023 3:40 AM INSULATION BATTING MACHINE OPERATOR FASTING:YES FASTING: YES Resulting Agency Comment Performing Organization Information: ?Site ID: [place] ?Name: [facility] ?Address: [address] [address] ?Director: Shante Salvador MD us Kami Edmond PA-C LABORATORY Final Resu lt [facility] [address] [place] [address], documented in this encounter Visit Diagnoses Diagnosis Essential hypertension- Primary Unspecified essential hypertension Moderate episode of recurrent major depressive disorder ([facility]) Type 2 diabetes mellitus with hyperglycemia, without long-term current use of insulin ([facility]) Morbid (severe) obesity due to excess calories ([facility]) Generalized anxiety disorder Acquired hypothyroidism Unspecified hypothyroidism Mixed hyperlipidemia Preoperative clearance Preoperative examination, unspecified Age-related cataract of both eyes, unspecified age-related cataract type documented in this encounter Additional Health Concerns Assessment Noted Time PHQ-9 Depression Total Score: 13 023 8:53 AM INSULATION BATTING MACHINE OPERATOR documented as of this encounter Care Teams Gas Distribution And Emergency Clerk Relationship Specialty Start Date End Date Kami Edmond PA-C [address] [place] [address] PCP - General PHYSICIAN PAINTER SHIPYARD 02/05/21 documented as of this encounter
--- OUTSIDE RECORDS SUMMARY | 2024-06-23 15:32 | XMS_ITS | Encounter Summary ---
Author Organization [facility] Address [address] [place] [address]. [place] [address] [place] [address] Care Team Providers Care Ferryboat Ticket Taker Name Role Phone Franny Dolan PA-C Primary Care Provider +1- [phone] Reason for Visit * Reason Comments Image [...] [facility] Family Medicine - [place] 100 [place] [phone] Franny Dolan PA-C 100 [place] [address] documented as of this encounter Procedures Procedure [...] Depression Total Score: 13 023 8:53 AM RENTAL CLERK TOOL AND EQUIPMENT documented as of this encounter Care Teams Ferryboat Ticket Taker Relationship Specialty Start Date End Date Franny Dloan PA-C [address] [place] [address] PCP - General PHYSICIAN DECORATING EQUIPMENT SETTER 02/05/21 documented as of this encounter
--- OUTSIDE RECORDS SUMMARY | 2024-06-23 15:32 | XMS_ITS | Encounter Summary ---
Author Organization [facility] Address [address] [place] [address]. [place], [place] [address] [place] [address] Care Team Providers Care Tire Balancer Name Role Phone Franny Dolan PA-C Primary Care Provider +1- [phone] Encounter Details Date Type Department Care Team [...] [facility] Family Medicine - [place] [address] [place] [phone] Franny Dolan PA-C [address] [place] [phone] documented as of this encounter Visit Diagnoses Not on filedocumented in this encounter Additional Health Concerns Assessment Noted Time PHQ-9 Depression Total Score: 13 023 8:53 AM HEAD FIELD HOCKEY COACH documented as of this encounter Care Teams Tire Balancer Relationship Specialty Start Date End Date Franny Dolan PA-C [address] [place] [address] PCP - General PHYSICIAN GROCERY CLERK MARKING 02/05/21 documented as of this encounter
--- OUTSIDE RECORDS SUMMARY | 2024-06-23 15:32 | XMS_ITS | Encounter Summary ---
Author Organization [facility] Address [address] [place] [address]. [place] [address] [place] [address] Care Team Providers Care Flight Manager Name Role Phone Kami Edmond PA-C Primary Care Provider +1- [phone] Reason for Visit * Reason Onset Date Comments Refill Request 01/05/2022 Encounter Details Date Type Department Care Team (Late st Contact Info) Description 01/05/2022 Telephone [facility] Family Medicine - [place] 100 [place] [address] Kami Edmond PA-C 100 [place] [address] Refill Request Social History Tobacco [...] - 01/05/2022 1:45 PM CDT Aide from [facility] called on pt behalf needing [...] please send all/NEW prescriptions to go to [facility] in [place] documented in this encounter Plan of Treatment Upcoming Encounters Date Type Department Care Team (Late st Contact Info) Description 11/07/2024 9:40 AM CDT Office Visit [facility] Medical Group Family Medicine [address] [phone] Kami Edmond PA-C [address] [place] [address] documented as of this encounter Visit Diagnoses Diagnosis Anxiety Anxiety state, unspecified Moderate episode of recurrent major depressive disorder (CMS/HCC [facility]/HCC) Mixed hyperlipidemia documented in this encounter Additional Health Concerns Assessment Noted Time PHQ-9 Depression Total Score: 0 05/12/20 21 9:32 AM CENTER CONSULTANT documented as of this encounter Care Teams Flight Manager Relationship Specialty Start Date End Date Kami Edmond PA-C [address] [place] [address] PCP - General PHYSICIAN FILTER PRESS TENDER 02/05/21 documented as of this encounter
--- OUTSIDE RECORDS SUMMARY | 2024-06-23 15:32 | XMS_ITS | Encounter Summary ---
Author Organization [facility] Address [address] [place] [address]. [place], [place] [address] [place] [address] Care Team Providers Care Belt Loop Cutter Name Role Phone Franny Dolan PA-C Primary Care Provider +1- [phone] Encounter Details Date Type Department Care Team [...] [facility] - [place] [address] [place] [phone] Franny Dolan PA-C [address] [place] [address] documented as of this encounter Visit Diagnoses Not on filedocumented in this encounter Additional Health Concerns Assessment Noted Time PHQ-9 Depression Total Score: 0 05/12/20 21 9:32 AM SHEEP SORTER documented as of this encounter Care Teams Belt Loop Cutter Relationship Specialty Start Date End Date Franny Dolan PA-C [address] [place] [address] [place] [address] PCP - General PHYSICIAN SHADE MATCHER 02/05/21 documented as of this encounter
--- OUTSIDE RECORDS SUMMARY | 2024-06-23 15:32 | XMS_ITS | Encounter Summary ---
Author Organization [facility] Address [address] [place] [address]. [place] [address] [place] [address] Care Team Providers Care Senior Information Security Architect Name Role Phone Franny Dolan PA-C Primary Care Provider +1- [phone] Reason for Visit * Reason Comments Dilated [...] [facility] Family Medicine - [place] 100 [place] [phone] Franny Dolan PA-C 100 [place] [address] documented as of this encounter Procedures Procedure Name Priority Date/Time Associated Diagnosis Comments DIABETIC RETINOPATHY EXAM (NEGATIVE)(SCAN ORDER) Routine 04/27/2023 documented in this encounter Results * DIABETIC RETINOPATHY EXAM (NEGATIVE)(SCAN) (04/27/2023) [facility] Scanned SCANNING Final Resu lt [facility] ONBASE documented in this encounter Visit Diagnoses Not on filedocumented in this encounter Additional Health Concerns Assessment Noted Time PHQ-9 Depression Total Score: 13 023 8:53 AM WHEEL LOADER OPERATOR documented as of this encounter Care Teams Senior Information Security Architect Relationship Specialty Start Date End Date Franny Dolan PA-C [address] [place] [address] PCP - General PHYSICIAN COMPUTER HARDWARE TECHNICIAN 02/05/21 documented as of this encounter
--- OUTSIDE RECORDS SUMMARY | 2024-06-23 15:32 | XMS_ITS | Encounter Summary ---
Author Organization [facility] Address [address] [place] [address]. [place] [address] [place] [address] Care Team Providers Care Surveillance System Monitor Name Role Phone Franny Dolan PA-C Primary Care Provider +1- [phone] Reason for Visit * Reason Comments ECG [...] [facility] - [place] 100 [place] [phone] Franny Dolan PA-C 100 [place] [address] documented as of this encounter Procedures Procedure Name Priority Date/Time Associated Diagnosis Comments ECG GENERIC (SCAN ORDER) 02/17/2023 documented in this encounter Results * ECG GENERIC (02/17/2023) 02/17/2023 [facility] Scanned SCANNING Final Resu lt documented in this encounter Visit Diagnoses Not on filedocumented in this encounter Additional Health Concerns Assessment Noted Time PHQ-9 Depression Total Score: 13 023 8:53 AM CUSTOMER EXPERIENCE CONSULTANT documented as of this encounter Care Teams Surveillance System Monitor Relationship Specialty Start Date End Date Franny Dolan PA-C [address] [place] [phone] PCP - General PHYSICIAN FENCE MACHINE OPERATOR 02/05/21 documented as of this encounter
--- OUTSIDE RECORDS SUMMARY | 2024-06-23 15:32 | XMS_ITS | Encounter Summary ---
Author Organization [facility] Address [address] [place] [address]. [place] [address] [place] [address] Care Team Providers Care Skiver Sock Linings Name Role Phone Kami Edmond PA-C Primary Care Provider +1- [phone] Reason for Visit * Reason Comments Follow Up - Diabetes Encounter Details Date Type Department Care Team (Late st Contact Info) Description 03/30/2022 10:40 AM CDT Office Visit [facility] Family Medicine - [place] 100 [place] [phone] Kami Edmond PA-C [address] [place] [address] Follow Up - Diabetes Social History [...] [facility] [place] [facility] - [place] [phone] Kami Edmond PA-C [address] [place] [address] documented as of this encounter Visit Diagnoses Diagnosis Essential hypertension- Primary Unspecified essential hypertension Moderate episode of recurrent major depressive disorder ([facility] HHS/HCC) Generalized anxiety disorder Type 2 diabetes mellitus without complication, without long-term current use of insulin ([facility] HHS/HCC) documented in this encounter Additional Health Concerns Assessment Noted Time PHQ-9 Depression Total Score: 0 05/12/20 9:32 AM SCHEDULE ANALYST documented as of this encounter Care Teams Skiver Sock Linings Relationship Specialty Start Date End Date Kami Edmond PA-C [address] [place] [address] PCP - General PHYSICIAN FOUNDER PRESIDENT AND CEO 02/05/21 documented as of this encounter
--- OUTSIDE RECORDS SUMMARY | 2024-06-23 15:32 | XMS_ITS | Encounter Summary ---
Author Organization [facility] Address [address] [place] [address]. [place], [place] [address] [place] [address] Care Team Providers Care Clocksmith Name Role Phone Franny Dolan PA-C Primary Care Provider +1- [phone] Encounter Details Date Type Department Care Team [...] Coronavirus/COVID-19? No / Unsure 05/30/2022 10:08 AM CODING DIRECTOR documented as of this encounter Plan of Treatment Upcoming Encounters Date Type Department Care Team (Late st Contact Info) Description 11/07/2024 9:40 AM CDT Office Visit [facility] Family Medicine - [place] [address] [place] [phone] Franny Dolan PA-C [address] [place] [address] documented as of this encounter Visit Diagnoses Not on filedocumented in this encounter Additional Health Concerns Assessment Noted Time PHQ-9 Depression Total Score: 0 05/12/20 21 9:32 AM CODING DIRECTOR documented as of this encounter Care Teams Clocksmith Relationship Specialty Start Date End Date Franny Dolan PA-C [address] [place] [address] PCP - General PHYSICIAN FUR OPERATOR 02/05/21 documented as of this encounter
--- OUTSIDE RECORDS SUMMARY | 2024-06-23 15:32 | XMS_ITS | Encounter Summary ---
Author Organization [facility] Address [address] [place] [address]. [place] [address] [place] [address] Care Team Providers Care Lining Closer Name Role Phone Franny Dolan PA-C Primary Care Provider +1- [phone] Reason for Visit * Reason Comments PFT [...] Description 11/07/2024 9:40 AM CDT Office Visit [facility] Family Medicine - [place] 100 [place] [phone] Franny Dolan PA-C 100 [place] [address] documented as of this encounter Procedures Procedure [...] Total Score: 13 023 8:53 AM AIR HOIST OPERATOR documented as of this encounter Care Teams Lining Closer Relationship Specialty Start Date End Date Franny Dolan PA-C [address] [place] [address] [phone] PCP - General PHYSICIAN CRITICAL POWER TECHNICIAN 02/05/21 documented as of this encounter
--- OUTSIDE RECORDS SUMMARY | 2024-06-23 15:32 | XMS_ITS | Encounter Summary ---
Author Organization [facility] Address [address] [place] [address]. [place], [place] [address] [place] [address] Care Team Providers Care Manager Stars Name Role Phone Kami Edmond PA-C Primary Care Provider +1- [phone] Reason for Visit * Reason Onset Date Comments Medication Request 04/24/2023 Encounter Details Date Type Department Care Team (Late st Contact Info) Description 04/24/2023 Telephone [facility] Family Medicine - [place] 100 [place] [address] Kami Edmond PA-C 100 [place] [address] Medication Request Social History Tobacco [...] like this sent to the following pharmacy: [facility] Mail Delivery - [place], [place] - [address] [facility] [address] [facility] [address] The next office visit: Next visit with KAMI EDMOND in FAMILY PRACTICE is on: 05/29/2023 in [facility] The last office visit: Last visit with KAMI EDMOND in FAMILY PRACTICE was on: 04/03/2023 in [place] documented in this encounter Plan of Treatment Upcoming Encounters Date Type Department Care Team (Late st Contact Info) Description 11/07/2024 9:40 AM CDT Office Visit [facility] Family Medicine - [address] [address] Kami Edmond PA-C [address] [place] [address] documented as of this encounter Visit Diagnoses Diagnosis Allergies documented in this encounter Additional Health Concerns Assessment Noted Time PHQ-9 Depression Total Score: 13 023 8:53 AM CARE PROGRAM DIRECTOR documented as of this encounter Care Teams Manager Stars Relationship Specialty Start Date End Date Kami Edmond PA-C [address] [place] [address] PCP - General PHYSICIAN ASSEMBLER DIELECTRIC HEATER 02/05/21 documented as of this encounter
--- OUTSIDE RECORDS SUMMARY | 2024-06-23 15:32 | XMS_ITS | Encounter Summary ---
Author Organization [facility] Address [address] [place] [address]. [place], [place] [address] [place] [address] Care Team Providers Care Cytology Technologist Name Role Phone Franny Dolan PA-C Primary Care Provider +1- [phone] Encounter Details Date Type Department Care Team [...] [facility] Family [facility] - [place] [address] [place] [phone] Franny Dolan PA-C [address] [place] [address] documented as of this encounter Visit Diagnoses Not on filedocumented in this encounter Additional Health Concerns Assessment Noted Time PHQ-9 Depression Total Score: 0 05/12/20 21 9:32 AM TABLET TESTER documented as of this encounter Care Teams Cytology Technologist Relationship Specialty Start Date End Date Franny Dolan PA-C [address] [place] [address] PCP - General PHYSICIAN SENIOR WATER RESOURCES ENGINEER 02/05/21 documented as of this encounter
--- OUTSIDE RECORDS SUMMARY | 2024-06-23 15:32 | XMS_ITS | Encounter Summary ---
Author Organization [facility] Address [address] [place] [address]. [place], [place] [address] [place] [address] Care Team Providers Care Extrusion Die Repairer Name Role Phone Kami Edmond PA-C Primary Care Provider +1- [phone] Reason for Referral * Imaging (Routine) - Closed Specialty Diagnoses / Procedures Referred By Michelle lozano Referred To Contact RADIOLOGY Diagnoses Elevated LFTs Procedures US ABD LIMITED Kami Edmond PA-C [address] [place] [address] Phone: tel: fax: Referral ID Status Reason Start Date Expiration Date Visits Re quested Visits Authorized [id number] Closed 01/30/2023 01/31/2024 1 1 Reason for Visit * Imaging (Routine) - Closed Specialty Diagnoses / Procedures Referred By Michelle lozano Referred To Contact RADIOLOGY Diagnoses Elevated LFTs Procedures US ABD LIMITED Kami Edmond PA-C [address] [place] [address] Phone: tel: fax: Referral ID Status Reason Start Date Expiration Date Visits Re quested Visits Authorized [id number] Closed 01/30/2023 01/31/2024 1 1 Encounter Details Date Type Department Care Team (Late st Contact Info) Description 04/20/2023 1:44 PM CDT - 04/20/2023 11:59 PM CDT Hospital Encounter [facility] [place] [address] Kami Edmond PA-C 100 [place] [address] Discharge Disposition: Home or Self Care (Routine [...] hyperglycemia, without long-term current use of insulin ([facility] HHS/HCC) TAKE 1 TABLET BY MOUTH TWICE [...] hyperglycemia, without long-term current use of insulin ([facility] HHS/HCC) TAKE 2 TABLETS EVERY DAY WITH [...] [facility] Family Medicine - [place] [place] [address] Kami Edmond PA-C [address] [place] [address] documented as of this encounter Procedures Procedure [...] Depression Total Score: 13 023 8:53 AM SURPLUS PROPERTY DISPOSAL AGENT documented as of this encounter Care Teams Extrusion Die Repairer Relationship Specialty Start Date End Date Kami Edmond PA-C [address] [place] [address]. [place] [address] PCP - General PHYSICIAN ASBESTOS COVERER 02/05/21 documented as of this encounter
--- OUTSIDE RECORDS SUMMARY | 2024-06-23 15:32 | XMS_ITS | Encounter Summary ---
Author Organization [facility] Address [address] [place] [address]. [place] [address] [place] [address] Care Team Providers Care Fund Manager Name Role Phone Franny Dolan PA-C Primary Care Provider +1- [phone] Reason for Visit * Reason Comments Image [...] Coronavirus/COVID-19? No / Unsure 08/17/2022 10:34 AM HAND III CUTTER documented as of this encounter Plan of Treatment Upcoming Encounters Date Type Department Care Team (Late st Contact Info) Description 11/07/2024 9:40 AM CDT Office Visit [facility] Family Medicine - [place] [address] [place] [phone] Franny Dolan PA-C [address] [place] [address] documented as of this encounter Procedures Procedure [...] Depression Total Score: 13 023 8:53 AM HAND III CUTTER documented as of this encounter Care Teams Fund Manager Relationship Specialty Start Date End Date Franny Dolan PA-C [address] [place] [address] [place] [address] PCP - General PHYSICIAN PLATE PAINTER APPRENTICE 02/05/21 documented as of this encounter
--- OUTSIDE RECORDS SUMMARY | 2024-06-23 15:32 | XMS_ITS | Encounter Summary ---
Author Organization [facility] Address [address] [place] [address]. [place], [place] [address] [place] [address] Care Team Providers Care Electric Relay Tester Name Role Phone Kami Edmond PA-C Primary Care Provider +1- [phone] Reason for Referral * Consultation (Routine) - Closed Specialty Diagnoses / Procedures Referred By Contpascual t Referred To Contact Decorating And Assembly Supervisor - Foot & Ankle Surgery / PODIATRY Diagnoses Encounter for nail care Procedures OFFICE/OUTPT VISIT,NEW,LEVL III OFFICE/OUTPT VISIT,NEW,LEVL IV OFFICE/OUTPT VISIT,NEW,LEVL V OFFICE/OUTPT VISIT,EST,LEVL III OFFICE/OUTPT VISIT,EST,LEVL IV OFFICE/OUTPT VISIT,EST,LEVL V Kami Edmond PA-C 100 [place] [address] Phone: tel: fax: Lakhwinder Whitehead DPM Phone: tel: fax: Referral ID Status Reason Start Date Expiration Date V isits Requested Visits Authorized [id number] Closed Specialty Services 01/30/2023 03/01/2024 99 99 * Imaging (Routine) - Closed Specialty Diagnoses / Procedures Referred By Contpascual t Referred To Contact RADIOLOGY Diagnoses Elevated LFTs Procedures US ABD LIMITED Kami Edmond PA-C 100 [place] [address] Phone: tel: fax: Referral ID Status Reason Start Date Expiration Date Visits Re quested Visits Authorized [id number] Closed 01/30/2023 01/31/2024 1 1 Reason for Visit * Reason Comments Hypertension Encounter Details Date Type Department Care Team (Late st Contact Info) Description 01/30/2023 11:20 AM CDT Office Visit [facility] Family Medicine - [place] 100 [place] [phone] Kami Edmond PA-C 100 [place] [address] Hypertension Social History Tobacco Use Types Packs/Day [...] HgbA1C was 8.8. She needs referral to finish machine tender for diabetic nail care. She has been [...] Medical History: Diagnosis Date Depression Diabetes mellitus ([facility]/HCC) ([facility]) Disease of thyroid gland Hypertension Polycythemia vera ([facility]HS/HCC) ([facility]/HCC) Past Surgical History: Procedure Laterality Date BACK [...] without long-term current use of insulin (HHS/HCC) ([facility]/HCC) semaglutide (OZEMPIC) 2 MG/3ML injection (PEN) glipiZIDE [...] [facility] Family Medicine - [address] [phone] Kami Edmond PA-C [address] [place] [address] Scheduled Referrals Name Type Priority Associated Diagnoses [...] hyperglycemia, without long-term current use of insulin ([facility] HHS/HCC) Mixed hyperlipidemia Essential hypertension Unspecified essential hypertension Acquired hypothyroidism Unspecified hypothyroidism Generalized anxiety disorder Encounter for nail care Non-recurrent acute serous otitis media of left ear Vertigo Dizziness and giddiness Elevated LFTs Other abnormal blood chemistry documented in this encounter Additional Health Concerns Assessment Noted Time PHQ-9 Depression Total Score: 13 023 8:53 AM LINUX CONSULTANT documented as of this encounter Care Teams Electric Relay Tester Relationship Specialty Start Date End Date Kami Edmond PA-C [address] [place] [address] PCP - General PHYSICIAN WATCH TRAIN ASSEMBLER 02/05/21 documented as of this encounter
--- OUTSIDE RECORDS SUMMARY | 2024-06-23 15:32 | XMS_ITS | Encounter Summary ---
Author Organization [facility] Address [address] [place] [address]. [place] [address] [place] [address] Care Team Providers Care Botany Teacher Name Role Phone Franny Dolan PA-C Primary Care Provider +1- [phone] Encounter Details Date Type Department Care Team [...] Description 11/07/2024 9:40 AM CDT Office Visit [facility] Family Medicine - [place] 100 [place] [phone] Franny Dolan PA-C 100 [place], [place] [phone] documented as of this encounter Visit Diagnoses Not on filedocumented in this encounter Additional Health Concerns Assessment Noted Time PHQ-9 Depression Total Score: 0 05/12/20 9:32 AM CRM DEVELOPER documented as of this encounter Care Teams Botany Teacher Relationship Specialty Start Date End Date Franny Dolan PA-C [address] [place] [address] PCP - General PHYSICIAN GLOBAL CLINICAL LEADER 02/05/21 documented as of this encounter
--- OUTSIDE RECORDS SUMMARY | 2024-06-23 15:32 | XMS_ITS | Encounter Summary ---
Author Organization [facility] Address [address] [place] [address]. [place] [address] [place] [address] Care Team Providers Care Creel Operator Name Role Phone Franny Dolan PA-C Primary Care Provider +1- [phone] Reason for Visit * Reason Onset Date Comments Medication Request 07/20/2022 Encounter Details Date Type Department Care Team (Late st Contact Info) Description 07/20/2022 Telephone [facility] Family Medicine - [place] 100 [place] [address] Franny Dolan PA-C 100 [place] [address] Medication Request Social History Tobacco [...] to discuss with her at her appointment MS COORDINATOR * Janeth Solorzano - 07/20/2022 1:46 PM CST Pt is asking for abilify to be prescribed. brenda santana Pt [phone] MS COORDINATOR documented in this encounter Plan of Treatment Upcoming Encounters Date Type Department Care Team (Late st Contact Info) Description 11/07/2024 9:40 AM CDT Office Visit [facility] Group Family Medicine - [address] [phone] Franny Dolan PA-C [address] [place] [address] documented as of this encounter Visit Diagnoses Not on filedocumented in this encounter Additional Health Concerns Assessment Noted Time PHQ-9 Depression Total Score: 0 05/12/20 21 9:32 AM CLAIMS COORDINATOR documented as of this encounter Care Teams Creel Operator Relationship Specialty Start Date End Date Franny Dolan PA-C [address] [place] [address] PCP - General PHYSICIAN AUDIO/VIDEO ENGINEER 02/05/21 documented as of this encounter
--- OUTSIDE RECORDS SUMMARY | 2024-06-23 15:32 | XMS_ITS | Encounter Summary ---
Author Organization [facility] Address [address] [place] [address]. [place], [place] [address] [place] [address] Care Team Providers Care Stage Setting Painter Apprentice Name Role Phone Franny Dolan PA-C Primary Care Provider +1- [phone] Encounter Details Date Type Department Care Team [...] [facility] Family Medicine - [place] [address] [place] [phone] Franny Dolan PA-C [address] [place] [address] documented as of this encounter Visit Diagnoses Not on filedocumented in this encounter Additional Health Concerns Assessment Noted Time PHQ-9 Depression Total Score: 0 05/12/20 21 9:32 AM CNC MAINTENANCE MECHANIC documented as of this encounter Care Teams Stage Setting Painter Apprentice Relationship Specialty Start Date End Date Franny Dolan PA-C [address] [place] [address] [place] [address] PCP - General PHYSICIAN MEDICAL OR SURGICAL INSTRUMENT MAKER 02/05/21 documented as of this encounter
--- OUTSIDE RECORDS SUMMARY | 2024-06-23 15:32 | XMS_ITS | Encounter Summary ---
Author Organization [facility] Address [address] [place] [address]. [place], [place] [address] [place] [address] Care Team Providers Care Energy Advisor Name Role Phone Franny Dolan PA-C Primary Care Provider +1- [phone] Encounter Details Date Type Department Care Team [...] [facility] Family Medicine - [place] [address] [place] [phone] Franny Dolan PA-C [address] [place] [phone] documented as of this encounter Visit Diagnoses Not on filedocumented in this encounter Additional Health Concerns Assessment Noted Time PHQ-9 Depression Total Score: 13 023 8:53 AM ENVIRONMENTAL PROGRAM MANAGER documented as of this encounter Care Teams Energy Advisor Relationship Specialty Start Date End Date Franny Dolan PA-C [address] [place] [address] PCP - General PHYSICIAN CIRCULAR SHEAR OPERATOR 02/05/21 documented as of this encounter
--- OUTSIDE RECORDS SUMMARY | 2024-06-23 15:32 | XMS_ITS | Encounter Summary ---
Author Organization [facility] Address [address] [place] [address]. [place], [place] [address] [place] [address] Care Team Providers Care Lumber Stacker Name Role Phone Frnany Dolan PA-C Primary Care Provider +1- [phone] Encounter Details Date Type Department Care Team [...] [facility] Family [facility] - [place] 100 [place] [phone] Franny Dolan PA-C [address] [place] [address] documented as of this encounter Visit Diagnoses Not on filedocumented in this encounter Additional Health Concerns Assessment Noted Time PHQ-9 Depression Total Score: 13 023 8:53 AM SALES STRATEGY MANAGER documented as of this encounter Care Teams Lumber Stacker Relationship Specialty Start Date End Date Franny Dolan PA-C [address] [place] [address] PCP - General PHYSICIAN GRAPHIC MANAGER 02/05/21 documented as of this encounter
--- OUTSIDE RECORDS SUMMARY | 2024-06-23 15:32 | XMS_ITS | Encounter Summary ---
Author Organization [facility] Address [address] [place] [address]. [place], [place] [address] [place] [address] Care Team Providers Care Graduate Fellow Name Role Phone Franny Dolan PA-C Primary Care Provider +1- [phone] Reason for Referral * Procedure (Routine) - Closed Specialty Diagnoses / Procedures Referred By Contac t Referred To Contact Diagnoses Chronic cough Dyspnea, unspecified type Procedures Complete PFT (pre/post [place], Lung Vol, Diff Capacity) (49693, 46013, 43207, 48819) Franny Dolan PA-C [address] [place] [address] Phone: tel: fax: Referral ID Status Reason Start Date Expiration Date Visits Re quested Visits Authorized [id number] Closed 08/17/2022 09/17/2023 1 1 Reason for Visit * Procedure (Routine) - Closed Specialty Diagnoses / Procedures Referred By Contac t Referred To Contact Diagnoses Chronic cough Dyspnea, unspecified type Procedures Complete PFT (pre/post [place], Lung Vol, Diff Capacity) (97239, 73311, 37668, 77375) Franny Dolan PA-C [address] [place] [address] Phone: tel: fax: Referral ID Status Reason Start Date Expiration Date Visits Re quested Visits Authorized [id number] Closed 08/17/2022 09/17/2023 1 1 Encounter Details Date Type Department Care Team (Late st Contact Info) Description 12/22/2022 5:35 AM CDT - 12/22/2022 11:59 PM CDT Hospital Encounter [facility] Respiratory Therapy [address] [address] Franny Dolan PA-C [address] [place] [address] Discharge Disposition: Home or Self Care (Routine [...] nxiety,Moderate episode of recurrent major depressive disorder ([facility]HCC) TAKE 1 CAPSULE(60 MG) BY MOUTH DAILY 90 capsule 1 07/04/2022 3 fenofibrate micronized 134 MG capsuleIndications:M ixed hyperlipidemia Take 1 capsule (134 mg total) by mouth daily. with food. 90 capsule 3 01/05/2022 3 glipiZIDE XL (GLUCOTROL XL) 10 MG 24 hr tabletIndications:Ty pe 2 diabetes mellitus without complication, without long-term current use of insulin ([facility] HHS/HCC) TAKE 1 [...] complication, without long-term current use of insulin ([facility] HHS/HCC) Take 1 tablet (500 mg total) by mouth daily with breakfast. 30 tablet 5 05/30/2022 3 nystatin (MYCOSTATIN) powderIndications:Ye ast infection of the skin Apply topically 3 (three) times daily. 60 g 1 05/30/2022 4 documented as of this encounter Procedure Notes * Jessi Pineda MD - 12/22/2022 6:00 AM CDTAssociated Order(s): PULMONARY FUNCTION TEST [facility] PULMONARY FUNCTION TEST REPORT Kristal Bustos INTERPRETATION [...] CDT Office Visit [facility] Medical [facility] Family Medicine - [place] [address] [place] [phone] Franny Dolan PA-C [address] [place] [address] documented as of this encounter Procedures Procedure Name Priority Date/Time Associated Diagnosis Comments PULMONARY FUNCTION TEST Routine 12/22/2022 6:00 AM CDT Chronic cough Dyspnea, unspecified type documented in this encounter Results * Complete PFT (pre/post [place], Lung Vol, Diff Capacity) (17733, 89417, 91742, 12046) (12/22/2022 6:00 AM CDT) Narrative [facility] - 12/22/2022 6:00 AM CDT Jessi Pineda MD ? 12/25/2022 ??8:46 AM ?? [facility] PULMONARY FUNCTION TEST REPORT Kristal Bustos INTERPRETATION [...] Pineda MD - 12/22/2022 6:00 AM CDT [facility] PULMONARY FUNCTION TEST REPORT Kristal Bustos INTERPRETATION [...] limits 4. Unadjusted DLCO within normal limits JESIS PINEDA MD us Franny Dolan PA-C PFT ORDERABLES Final Resu lt [facility] [address] [place] [address], [place] [phone] documented in this encounter Visit Diagnoses Diagnosis [...] Depression Total Score: 13 023 8:53 AM OXYGEN FURNACE OPERATOR documented as of this encounter Care Teams Graduate Fellow Relationship Specialty Start Date End Date Franny Dolan PA-C [address] [place] [address]. [place] [address] PCP - General PHYSICIAN MATCH MARKER 02/05/21 documented as of this encounter
--- OUTSIDE RECORDS SUMMARY | 2024-06-23 15:32 | XMS_ITS | Encounter Summary ---
Author Organization [facility] Address [address] [place] [address]. [place] [address] [place] [address] Care Team Providers Care [employer] Teacher Name Role Phone Franny Dolan PA-C Primary Care Provider +1- [phone] Encounter Details Date Type Department Care Team [...] Coronavirus/COVID-19? No / Unsure 08/17/2022 10:34 AM BOOK AUTHOR documented as of this encounter Plan of Treatment Upcoming Encounters Date Type Department Care Team (Late st Contact Info) Description 11/07/2024 9:40 AM CDT Office Visit [facility] Medical [facility] Family Medicine - Center [address] [place] [phone] Franny Dolan PA-C [address] [place] [address] documented as of this encounter Visit Diagnoses Not on filedocumented in this encounter Additional Health Concerns Assessment Noted Time PHQ-9 Depression Total Score: 13 023 8:53 AM BOOK AUTHOR documented as of this encounter Care Teams [employer] Teacher Relationship Specialty Start Date End Date Franny Dolan PA-C [address] [place] [address] PCP - General PHYSICIAN ROTARY CUTTER 02/05/21 documented as of this encounter
--- OUTSIDE RECORDS SUMMARY | 2024-06-23 15:32 | XMS_ITS | Encounter Summary ---
Author Organization [facility] Address [address] [place] [address]. [place], [place] [address] [place] [address] Care Team Providers Care Primary Health Organisation Manager Name Role Phone Franny Dolan PA-C Primary Care Provider +1- [phone] Encounter Details Date Type Department Care Team [...] [facility] Family Medicine - [place] [address] [place] [phone] Franny Dolan PA-C [address] [place] [address] documented as of this encounter Visit Diagnoses Not on filedocumented in this encounter Additional Health Concerns Assessment Noted Time PHQ-9 Depression Total Score: 13 023 8:53 AM YOUTH CARE SPECIALIST documented as of this encounter Care Teams Primary Health Organisation Manager Relationship Specialty Start Date End Date Franny Dolan PA-C [address] [place] [address] PCP - General PHYSICIAN UNIVERSITY TUTOR 02/05/21 documented as of this encounter
--- OUTSIDE RECORDS SUMMARY | 2024-06-23 15:32 | XMS_ITS | Encounter Summary ---
Author Organization [facility] Address [address] [place] [address]. [place] [address] [place] [address] Care Team Providers Care Storage Center Manager Name Role Phone Kami Edmond PA-C Primary Care Provider +1- [phone] Reason for Visit * Reason Comments UTI Patient present for possible UTI Encounter Details Date Type Department Care Team (Late st Contact Info) Description 07/26/2022 8:40 AM SALES SUPPORT REPRESENTATIVE Office Visit [facility] Medical [facility] Family Medicine [place] [phone] Kami Edmond PA-C [address] [place] [address] UTI (Patient present for possible UTI) [...] Coronavirus/COVID-19? No / Unsure 07/26/2022 8:38 AM SALES SUPPORT REPRESENTATIVE documented as of this encounter Last Filed Vital Signs Vital Sign Reading Time Taken Comments Blood Pressure 145/70 07/26/2022 9:29 AM SALES SUPPORT REPRESENTATIVE Pulse 66 07/26/2022 8:58 AM SALES SUPPORT REPRESENTATIVE Temperature 36.1 ??C (96.9 ??F) 07/26/2022 8:58 AM CS T Respiratory Rate 18 07/26/2022 8:58 AM SALES SUPPORT REPRESENTATIVE Oxygen Saturation 98% 07/26/2022 8:58 AM SALES SUPPORT REPRESENTATIVE Inhaled Oxygen Concentration - - Weight 126.4 kg (278 lb 9.6 oz) 07/26/2022 8:58 AM SALES SUPPORT REPRESENTATIVE Height 165.1 cm (5' 5 ) 07/26/2022 8:58 AM SALES SUPPORT REPRESENTATIVE Body Mass Index 46.36 07/26/2022 8:58 AM SALES SUPPORT REPRESENTATIVE documented in this encounter Progress Notes * [...] NEGATIVE U KETONES NEGATIVE NEGATIVE MG/DL Specific [place] (U) 1.025 1.001 - 1.035 BLOOD TRACE [...] of insulin ([facility]) COMPREHENSIVE METABOLIC PANEL HEMOGLOBIN, GLYCOSYLATED 8. Moderate episode of recurrent major depressive disorder ([facility]) Recommendations and Plan: She will have labs [...] ref. provider found PCP: KAMI EDMOND PA-C S SUPPORT REPRESENTATIVE documented in this encounter Plan of Treatment Upcoming Encounters Date Type Department Care Team (Late st Contact Info) Description 11/07/2024 9:40 AM CDT Office Visit [facility] Medical [facility] Family Medicine [place] [phone] Kami Edmond PA-C [address] [place] [phone] documented as of this encounter Procedures Procedure Name Priority Date/Time Associated Diagnosis Comments HEMOGLOBIN, GLYCOSYLATED Routine 10/17/2022 7:17 AM CDT Type 2 diabetes mellitus with hyperglycemia, without long-term current use of insulin ([facility]) COMPREHENSIVE METABOLIC PANEL Routine 10/17/2022 7:17 AM CDT Essential hypertension Type 2 diabetes mellitus with hyperglycemia, without long-term current use of insulin ([facility]) LIPID PANEL Routine 10/17/2022 7:17 AM CDT Mixed hyperlipidemia THYROXINE, FREE (FT4) Routine 10/17/2022 7:17 AM CDT Acquired hypothyroidism THYROID STIM HORMONE TSH Routine 10/17/2022 7:17 AM CDT Acquired hypothyroidism URINALYSIS AUTO DIP Today 07/26/2022 Abnormal urine odor documented in this encounter Results * (ABNORMAL) LIPID PANEL (10/17/2022 7:17 AM CDT) Pathologist [facility] CHOLESTEROL 142 <200 mg/dL [facility] HDL 54 > OR = 50 mg/dL [facility] TRIGLYCERIDES 156(H) <150 mg/dL [facility] LDL (CALCULATED) 65 mg/dL (calc) [facility] Comment: Reference range: <100 Desirable range <100 mg/dL for primary prevention; ?? <70 mg/dL for patients with CHD or diabetic patients with > or = 2 CHD risk factors. LDL-C is now calculated using the Prakash calculation, which is a validated novel method providing better accuracy than the Friedewald equation in the estimation of LDL-C. Trino SS et al. CELSA. 2013;310(19): 2712-4907 (http://education.Liveyearbook/faq/YCD157) CHOL/HDL RATIO 2.6 <5.0 (calc) [facility] NON HDL CHOLESTEROL 88 <130 mg/dL (calc) [facility] Comment: For patients with diabetes plus 1 major ASCVD risk factor, treating to a non-HDL-C goal of <100 mg/dL (LDL-C of <70 mg/dL) is considered a therapeutic option. 10/17/2022 7:17 AM CDT 10/17/2022 7:19 AM CDT Narrative [facility] BENITO - 10/18/2022 2:19 AM CDT FASTING:YES FASTING: YES Resulting Agency Comment Performing Organization Information: ?Site ID: [place] ?Name: [facility] ?Address: [address] [place] [address] ?Director: Shante Salvador MD us Kami Edmond PA-C LABORATORY Final Resu lt [facility] GALEN - [facility]STEL BENITO [facility] [address] [place] [address], * THYROXINE, FREE (FT4) (10/17/2022 7:17 AM CDT) [facility] FREE T4 1.2 0.8 - 1.8 ng/dL [facility] 10/17/2022 7:17 AM CDT 10/17/2022 7:19 AM CDT Narrative [facility] - 10/18/2022 2:19 AM CDT FASTING:YES FASTING: YES Resulting Agency Comment Performing Organization Information: ?Site ID: [place] ?Name: [facility] ?Address: [address] [place] [address] [place] [address] ?Director: Shante Salvador MD Kami TROYC LABORATORY Final Resu lt Performing Organization Address City/[facility]/ZIP Co de Phone Number [facility] - C[facility]STEL THONG [facility] [address] [address], * THYROID STIM HORMONE, TSH (10/17/2022 7:17 AM CDT) TSH 2.09 0.40 - 4.50 mIU/L [facility] 10/17/2022 7:17 AM CDT 10/17/2022 7:19 AM CDT Narrative [facility] - 10/18/2022 2:19 AM CDT FASTING:YES FASTING: YES Resulting Agency Comment Performing Organization Information: ?Site ID: SHAMIKA ?Name: [facility] ?Address: [address] [place] [id number] ?Director: Shante Salvador MD Kami Edmond PA-C LABORATORY Final Resu lt [facility] - [facility] [address] [place] [address], * (ABNORMAL) HEMOGLOBIN, GLYCOSYLATED (10/17/2022 7:17 AM CDT) HGB A1C 6.8(H) <5.7 % of total Hgb [facility] [employer] [place] Comment: For someone without known diabetes, [...] Performing Organization Information: ?Site ID: [place] ?[facility] ?Address: [address] [place] [address] ?Director: Shante Salvador us Kami Edmond PA-C LABORATORY Final Resu lt [facility] - [facility] ORDERS [facility] [address], * (ABNORMAL) COMPREHENSIVE METABOLIC PANEL (10/17/2022 7:17 AM CDT) [facility] GLUCOSE 133(H) 65 - 99 mg/dL [facility] Comment: ? Fasting reference interval For someone without known diabetes, a glucose value >125 mg/dL indicates that they may have diabetes and this should be confirmed with a follow-up test. BUN 15 7 - 25 mg/dL [facility] [employer] User [place] [facility] CREATININE S/P/B 0.77 0.50 - 1.05 mg/dL [facility] GFR ESTIMATE 85 > OR = 60 mL/min/1 .73m2 [facility] Comment: The eGFR is based on the CKD-EPI 2020 equation. To calculate the new eGFR from a previous Creatinine or Cystatin C result, go to https://www.kidney.org/professionals/ kdoqi/gfr%5Fcalculator BUN CREATININE RATIO NOT APPLICABLE (calc) [facility] SODIUM S/P/B 138 135 - 146 mmol/L [facility] POTASSIUM S/P/B 4.0 3.5 - 5.3 mmol/L [facility] ANALISA CHLORIDE S/P/B 101 98 - 110 mmol/L [facility] CO2 26 20 - 32 mmol/L [facility] [employer] [place] [facility] CALCIUM S/P/B 10.0 8.6 - 10.4 mg/dL [facility] TOTAL PROTEIN S/P/B 7.0 6.1 - 8.1 g/dL [facility] [employer] User [place] [facility] ALBUMIN S/P/B 4.1 3.6 - 5.1 g/dL [facility] [employer] [place] [facility] GLOBULIN 2.9 1.9 - 3.7 g/dL (calc) [facility] ALBUMIN/GLOBULI N RATIO 1.4 1.0 - 2.5 (calc) [facility] BILIRUBIN TOTAL S/P/B 0.5 0.2 - 1.2 mg/dL [facility] [employer] User [place] [facility] ALKALINE PHOSPHATASE S/P/B 118 37 - 153 U/L [facility] AST 43(H) 10 - 35 U/L [facility] ALT 40(H) 6 - 29 U/L [facility] 10/17/2022 7:17 AM CDT 10/17/2022 7:19 AM CDT Narrative [facility] - 10/18/2022 2:19 AM CDT FASTING:YES FASTING: YES Resulting Agency Comment Performing Organization Information: ?Site ID: IN ?Name: [facility] ?Address: [address] [place] [address] ?Director: Shante Salvador MD us Kami Edmond PA-C LABORATORY Final Resu lt [facility] [address] [place] [address], * URINALYSIS AUTO DIP (07/26/2022) COLOR (U) YELLOW MG-[address],[place] TRANSPARENCY CLEAR MG-[address],[place] GLUCOSE (U) NEGATIVE NEGATIVE MG/DL MG-[address],[place] BILIRUBIN (U) NEGATIVE NEGATIVE MG-[address],[place] KETONES MG/DL (U) NEGATIVE NEGATIVE MG/DL MG-[address],[place] SPECIFIC GRAVITY (U) 1.025 1.001 - 1.035 MG-[address],[place] BLOOD (U) TRACE (Hemolyzed) NEGATIVE MG-[address],[place] U PH 6.0 5.0 - 9.0 MG-[address],[place] PROTEIN (U) NEGATIVE NEGATIVE mg/dL MG-[address],[place] UROBILINOGEN 2.0 0.2 - 1.0 EU/dL = mg/dL MG-[address],[place] NITRITES NEGATIVE NEGATIVE MG/DL MG-[address],[place] LEUKOCYTES (U) 1+ (SMALL) NEGATIVE MG-[address],[place] URINE SPECIMEN OBTAINED BY CLEAN CATCH PROCEDURE / Unknown 07/26/2022 us Kami Edmond PA-C URINE ORDERABLES Final Res ult MG-[address] [address] [place] [address], documented in this encounter Visit Diagnoses Diagnosis Abnormal urine odor- Primary Other nonspecific finding on examination of urine Cystitis Cystitis, unspecified Acute vaginitis Vaginitis and vulvovaginitis, unspecified Essential hypertension Unspecified essential hypertension Acquired hypothyroidism Unspecified hypothyroidism Mixed hyperlipidemia Type 2 diabetes mellitus with hyperglycemia, without long-term current use of insulin ([facility]) Moderate episode of recurrent major depressive disorder ([facility]) documented in this encounter Additional Health Concerns Assessment Noted Time PHQ-9 Depression Total Score: 13 023 8:53 AM SALES SUPPORT REPRESENTATIVE documented as of this encounter Care Teams Storage Center Manager Relationship Specialty Start Date End Date Kami Edmond PA-C [address] [facility] [place] [address] PCP - General PHYSICIAN ANALYST MARKET INTELLIGENCE 02/05/21 documented as of this encounter
--- OUTSIDE RECORDS SUMMARY | 2024-06-23 15:32 | XMS_ITS | Encounter Summary ---
Author Organization [facility] Address [address] [place] [address]. [place] [address] [place] [address] Care Team Providers Care Desktop Support Technician Name Role Phone Franny Dolan PA-C Primary Care Provider +1- [phone] Reason for Visit * Reason Onset Date Comments Medication Information 07/12/2022 Encounter Details Date Type Department Care Team (Late st Contact Info) Description 07/12/2022 Telephone [facility] Family Medicine - [place] [address] [place] [address] Franny Dolan PA-C 100 [place] [address] Medication Information Social History Tobacco [...] we can retreive office note from them. D NURSE CASE MANAGER * Franny Dolan PA-C - 07/13/2022 8:43 AM CST Please let her know that we can discuss at her Jul apt. Also see if we can get the last office notefrom the psychiatrist office D NURSE CASE MANAGER * Peyton Carlson MA - 07/12/2022 4:33 PM CST Per pts Dr did not order new more like a suggestion D NURSE CASE MANAGER * Franny Dolan PA-C - 07/12/2022 4:15 PM CST Please call to see if this was just an FYI that she is starting this D NURSE CASE MANAGER * Shannon Munoz - 07/12/2022 11:09 AM CST Patient came in office today stating that she is seeing Aneesh Cullen MD. Patient stated that the doctor above recommended this medication. Aripiprazole 0.5 MG. If any questions: [phone] EXT: [id number] D NURSE CASE MANAGER documented in this encounter Plan of Treatment Upcoming Encounters Date Type Department Care Team (Late st Contact Info) Description 11/07/2024 9:40 AM CDT Office Visit [facility] Family Medicine - [place] [address] [place] [phone] Franny Dolan PA-C [address] [place] [address] documented as of this encounter Visit Diagnoses Not on filedocumented in this encounter Additional Health Concerns Assessment Noted Time PHQ-9 Depression Total Score: 0 05/12/20 21 9:32 AM FIELD NURSE CASE MANAGER documented as of this encounter Care Teams Desktop Support Technician Relationship Specialty Start Date End Date Franny Dolan PA-C [address] [place] [address] PCP - General PHYSICIAN MAIL HANDLER ASSISTANT 02/05/21 documented as of this encounter
--- OUTSIDE RECORDS SUMMARY | 2024-06-23 15:32 | XMS_ITS | Encounter Summary ---
Author Organization [facility] Address [address] [place] [address]. [place], [place] [address] [place] [address] Care Team Providers Care Telephone Switchboard Operator Name Role Phone Kami Edmond PA-C Primary Care Provider +1- [phone] Reason for Visit * Reason Onset Date Comments Medication Request 03/09/2023 Encounter Details Date Type Department Care Team (Late st Contact Info) Description 03/09/2023 Telephone [facility] Family Medicine - [place] [address] [place] [address] Kami Edmond PA-C [address] [place] [address] Medication Request Social History Tobacco [...] like this sent to the following pharmacy: [facility] Mail Delivery - [place], [place] - [address] [facility] [address] [facility] [address] The next office visit: Next visit with [...] [facility] Family Medicine - [place] [phone] Kami Edmond PA-C [address] [place] [address] documented as of this encounter Visit Diagnoses Diagnosis Type 2 diabetes mellitus with hyperglycemia, without long-term current use of insulin ([facility]) documented in this encounter Additional Health Concerns Assessment Noted Time PHQ-9 Depression Total Score: 13 023 8:53 AM EXCAVATING MACHINE OPERATOR documented as of this encounter Care Teams Telephone Switchboard Operator Relationship Specialty Start Date End Date Kami Edmond PA-C [address] [place] [address] PCP - General PHYSICIAN DELIVERY ARCHITECT 02/05/21 documented as of this encounter
--- OUTSIDE RECORDS SUMMARY | 2024-06-23 15:32 | XMS_ITS | Encounter Summary ---
Author Organization [facility] Address [address] [place] [address]. [place], [place] [phone] [place] [address] Care Team Providers Care Cst Name Role Phone Franny Dolan PA-C Primary Care Provider +1- [phone] Encounter Details Date Type Department Care Team [...] [facility] Family Medicine - [place] [address] [place] [phone] Franny Dolan PA-C [address] [place] [address] documented as of this encounter Visit Diagnoses Not on filedocumented in this encounter Additional Health Concerns Assessment Noted Time PHQ-9 Depression Total Score: 0 05/12/20 21 9:32 AM OTR TRUCK DRIVER documented as of this encounter Care Teams Cst Relationship Specialty Start Date End Date Franny Dolan PA-C [address] [place] [address] [place] [address] PCP - General PHYSICIAN CORE ANALYSIS OPERATOR 02/05/21 documented as of this encounter
--- OUTSIDE RECORDS SUMMARY | 2024-06-23 15:32 | XMS_ITS | Encounter Summary ---
Author Organization [facility] Address [address] [place] [address]. [place] [address] [place] [address] Care Team Providers Care Associate Director Of Nursing Name Role Phone Franny Dolan PA-C Primary Care Provider +1- [phone] Reason for Visit * Reason Comments New Patient Pt here for toenail fungus left foot. Thinks she may have injured it a while ago. * Consultation (Routine) - Closed Specialty Diagnoses / Procedures Referred By Michelle lozano Referred To Contact Molder Machine Tender - Foot & Ankle Surgery / PODIATRY Diagnoses Encounter for nail care Procedures OFFICE/OUTPT VISIT,NEW,LEVL III OFFICE/OUTPT VISIT,NEW,LEVL IV OFFICE/OUTPT VISIT,NEW,LEVL V OFFICE/OUTPT VISIT,EST,LEVL III OFFICE/OUTPT VISIT,EST,LEVL IV OFFICE/OUTPT VISIT,EST,LEVL V Franny Dolan PA-C [address] [facility] [place] [address] Phone: tel: fax: Lakhwinder Whitehead DPM Phone: tel: fax: Referral ID Status Reason Start Date Expiration Date V isits Requested Visits Authorized [id number] Closed Specialty Services 01/30/2023 03/01/2024 99 99 Encounter Details Date Type Department Care Team (Late st Contact Info) Description 02/13/2023 10:00 AM CDT Office Visit [facility] - [place] [address] [place] [address] Adore Barahona NP-C [address] 2nd [place] [address] New Patient (Pt here for [...] Date Chronic kidney disease Depression Diabetes mellitus ([facility]/HCC) ([facility]) Disease of thyroid gland Hypertension Polycythemia vera ([facility]/HCC) ([facility]) Past Surgical History: Procedure Laterality [...] polyneuropathy, without long-term current use of insulin ([facility]) ([facility]) 2. Onychomycosis 3. Onychogryphosis 4. Callus of [...] MEDICAL CENTER Medical Group Family Medicine - [place] [address] [place] [address] Franny Dolan PA-C 100 [place] [address] documented as of this encounter Results * Pathology (02/15/2023 12:00 AM CDT) COPATH REPORT ?[facility] ? [address] ? [place], [place] ??[address] ? [id number] ? Department of Pathology ? Pathology Report ? SURGICAL FINAL REPORT Patient Name: ALICIA BOYCE ? : 1955 (Age: 67) ? Location: [facility] Gender: F ?Collected Date: 02/15/2023 [facility] Rec #: [id number] ?Date Received: 02/15/2023 Date Reported: 02/16/2023 Provider: [...] fixation with DINO. :pb Billing Fee Code(s): 45228, 32548 [facility] 02/15/2023 02/15/2023 11: 00 AM CDT Comment:Toenail us Adore Barahona BAKED GOODS STOCK CLERK-C PATHOLOGY/CYTOLOGY ORDERABL ES Final Result [facility] [address] [place] [address], documented in this encounter Visit Diagnoses Diagnosis Type 2 diabetes mellitus with diabetic polyneuropathy, without long-term current use of insulin ([facility])- Primary Onychomycosis Dermatophytosis of nail Onychogryphosis Other specified disease of nail Callus of foot Corns and callosities documented in this encounter Additional Health Concerns Assessment Noted Time PHQ-9 Depression Total Score: 13 023 8:53 AM CUSTOMER LOGISTICS MANAGER documented as of this encounter Care Teams Associate Director Of Nursing Relationship Specialty Start Date End Date Franny Dolan PA-C [address] [place] [address] PCP - General PHYSICIAN WAREHOUSE MATERIAL HANDLER 02/05/21 documented as of this encounter
--- OUTSIDE RECORDS SUMMARY | 2024-06-23 15:32 | XMS_ITS | Encounter Summary ---
Author Organization [facility] Address [address] [place] [address]. [place], [place] [address] [place] [address] Care Team Providers Care Wage And Salary Specialist Name Role Phone Farnny Dolan PA-C Primary Care Provider +1- [phone] Encounter Details Date Type Department Care Team [...] [facility] Family [facility] - [place] [address] [place] [phone] Franny Dolan PA-C [address] [place] [phone] documented as of this encounter Visit Diagnoses Not on filedocumented in this encounter Additional Health Concerns Assessment Noted Time PHQ-9 Depression Total Score: 13 023 8:53 AM STAKER SURVEYING documented as of this encounter Care Teams Wage And Salary Specialist Relationship Specialty Start Date End Date Franny Dolan PA-C [address] [place] [address] PCP - General PHYSICIAN SET UP PERSON 02/05/21 documented as of this encounter
--- OUTSIDE RECORDS SUMMARY | 2024-06-23 15:32 | XMS_ITS | Encounter Summary ---
Author Organization [facility] Address [address] [place] [address]. [place] [address] [place] [address] Care Team Providers Care Operations Tech Name Role Phone Franny Dolan PA-C Primary Care Provider +1- [phone] Encounter Details Date Type Department Care Team [...] Coronavirus/COVID-19? No / Unsure 08/17/2022 10:34 AM NUCLEAR MEDICINE PET CT TECHNOLOGIST documented as of this encounter Plan of Treatment Upcoming Encounters Date Type Department Care Team (Late st Contact Info) Description 11/07/2024 9:40 AM CDT Office Visit [facility] Medical [facility] Family Medicine - [place] [address] [place] [phone] Franny Dolan PA-C [address] [place] [address] documented as of this encounter Visit Diagnoses Not on filedocumented in this encounter Additional Health Concerns Assessment Noted Time PHQ-9 Depression Total Score: 13 023 8:53 AM NUCLEAR MEDICINE PET CT TECHNOLOGIST documented as of this encounter Care Teams Operations Tech Relationship Specialty Start Date End Date Franny Dolan PA-C [address] [place] [address] PCP - General PHYSICIAN ASSISTANT AUDITOR 02/05/21 documented as of this encounter
--- OUTSIDE RECORDS SUMMARY | 2024-06-23 15:32 | XMS_ITS | Encounter Summary ---
Author Organization [facility] Address [address] [place] [address]. [place] [address] [place] [address] Care Team Providers Care B Operator Name Role Phone Franny Dolan PA-C Primary Care Provider +1- [phone] Encounter Details Date Type Department Care Team (Late st Contact Info) Description 12/27/2022 [place] Message Enc [address] [phone] Franny Dolan PA-C [address] [place] [address] results Social History Tobacco Use Types [...] Description 11/07/2024 9:40 AM CDT Office Visit [address] [phone] Franny Dolan PA-C 100 [place] [address] documented as of this encounter Visit Diagnoses Not on filedocumented in this encounter Additional Health Concerns Assessment Noted Time PHQ-9 Depression Total Score: 13 023 8:53 AM HERB COUNSELOR documented as of this encounter Care Teams B Operator Relationship Specialty Start Date End Date Franny Dolan PA-C 100 [place] [address] PCP - General PHYSICIAN PILOT STEAM YACHT 02/05/21 documented as of this encounter
--- OUTSIDE RECORDS SUMMARY | 2024-06-23 15:32 | XMS_ITS | Encounter Summary ---
Author Organization [facility] Address [address] [place] [address]. [place] [address] [place] [address] Care Team Providers Care Polisher Dial Name Role Phone Kami Edmond PA-C Primary Care Provider +1- [phone] Reason for Referral * Medication Prior Authorization - Closed Specialty Diagnoses / Procedures Referred By Michelle t Referred To Contact Diagnoses Acute vaginitis Kami Edmond PA-C [address] [place] [address] Phone: tel: fax: Referral ID Status Reason Start Date Expiration Date Visits Re quested Visits Authorized [id number] Closed 1 1 PROCESSING CONTROL CLERK Reason for Visit * Reason Comments Hypertension Pt present for hyper tension follow up. Encounter Details Date Type Department Care Team (Late st Contact Info) Description 05/30/2022 10:20 AM DATA PROCESSING CONTROL CLERK Office Visit [facility] Medical [facility] Family Medicine - [place] [phone] Kami Edmond PA-C [address] [place] [address] Hypertension (Pt present for hypertension follow [...] Coronavirus/COVID-19? No / Unsure 05/30/2022 10:08 AM DATA PROCESSING CONTROL CLERK documented as of this encounter Last Filed Vital Signs Vital Sign Reading Time Taken Comments Blood Pressure 150/80 05/30/2022 11:13 AM DATA PROCESSING CONTROL CLERK Pulse 56 05/30/2022 10:33 AM DATA PROCESSING CONTROL CLERK Temperature 36.4 ??C (97.5 ??F) 05/30/2022 10:[address] Respiratory Rate - - Oxygen Saturation 97% 05/30/2022 10:33 AM DATA PROCESSING CONTROL CLERK Inhaled Oxygen Concentration - - Weight 126.1 kg (278 lb) 05/30/2022 10:33 AM DATA PROCESSING CONTROL CLERK Height - - Body Mass Index 47.72 [...] complication, without long-term current use of insulin ([facility]) A1C (BACK OFFICE) metFORMIN ER (GLUCOPHAGE XR) [...] ref. provider found PCP: KAMI EDMOND PA-C PROCESSING CONTROL CLERK documented in this encounter Plan of Treatment Upcoming Encounters Date Type Department Care Team (Late st Contact Info) Description 11/07/2024 9:40 AM CDT Office Visit [facility] Medical [facility] [place] [phone] Kami Edmond PA-C [address] [place] [address]. [place] [address] Scheduled Orders Name Type Priority Associated Diagnoses Orde r Schedule COMPREHENSIVE METABOLIC PANEL Lab Routine Type 2 diabetes mellitus without complication, without long-term current use of insulin ([facility]) Essential hypertension Expected: 08/28/2022, Expires: 05/30/2023 LIPID PANEL Lab Routine Mixed hyperlipidemia Expected: 08/28/2022, Expires: 05/30/2023 THYROID STIM HORMONE, TSH Lab Routine Acquired hypothyroidism Expected: 08/28/2022, Expires: 05/30/2023 THYROXINE, FREE (FT4) Lab Routine Acquired hypothyroidism Expected: 08/28/2022, Expires: 05/30/2023 HEMOGLOBIN, GLYCOSYLATED Lab Routine Type 2 diabetes mellitus without complication, without long-term current use of insulin ([facility]) Expected: 08/28/2022, Expires: 05/30/2023 documented as of this encounter Procedures Procedure Name Priority Date/Time Associated Diagnosis Comments HEMOGLOBIN, GLYCOSYLATED Today 05/30/2022 10:53 AM DATA PROCESSING CONTROL CLERK Type 2 diabetes mellitus without complication, without long-term current use of insulin ([facility]) documented in this encounter Results * A1C (BACK OFFICE) (05/30/2022 10:53 AM DATA PROCESSING CONTROL CLERK) HGB A1C 7.8 % [facility] 05/30/2022 10:5 3 AM DATA PROCESSING CONTROL CLERK us Kami dEmond PA-C LABORATORY Final Resu lt [facility] 100 [place] [address], [place] [phone] documented in this encounter Visit Diagnoses Diagnosis Type 2 diabetes mellitus without complication, without long-term current use of insulin ([facility])- Primary Essential hypertension Unspecified essential hypertension Mixed hyperlipidemia Acquired hypothyroidism Unspecified hypothyroidism Acute vaginitis Vaginitis and vulvovaginitis, unspecified Yeast infection of the skin Candidiasis of skin and nails documented in this encounter Additional Health Concerns Assessment Noted Time PHQ-9 Depression Total Score: 0 05/12/20 21 9:32 AM DATA PROCESSING CONTROL CLERK documented as of this encounter Care Teams Polisher Dial Relationship Specialty Start Date End Date Kami Edmond PA-C [address] [place] [address] PCP - General PHYSICIAN ENERGY OPERATIONS VICE PRESIDENT 02/05/21 documented as of this encounter
--- OUTSIDE RECORDS SUMMARY | 2024-06-23 15:32 | XMS_ITS | Encounter Summary ---
Author Organization [facility] Address [address] [place] [address]. [place], [place] [address] [place] [address] Care Team Providers Care Rn Acls Name Role Phone Franny Dolan PA-C Primary Care Provider +1- [phone] Encounter Details Date Type Department Care Team [...] Description 11/07/2024 9:40 AM CDT Office Visit [facility] Medical Group Family Medicine - [place] [address] [place] [phone] Franny Dolan PA-C [address] [place] [phone] documented as of this encounter Visit Diagnoses Not on filedocumented in this encounter Additional Health Concerns Assessment Noted Time PHQ-9 Depression Total Score: 13 023 8:53 AM EGG BUYER documented as of this encounter Care Teams Rn Acls Relationship Specialty Start Date End Date Franny Dolan PA-C [address] [place] [address] PCP - General PHYSICIAN DRILLER'S ASSISTANT 02/05/21 documented as of this encounter
--- OUTSIDE RECORDS SUMMARY | 2024-06-23 15:32 | XMS_ITS | Encounter Summary ---
Author Organization [facility] Address [address] [place] [address]. [place] [address] [place] [address] Care Team Providers Care Jawbone Puller Name Role Phone Franny Dolan PA-C Primary Care Provider +1- [phone] Reason for Visit * Reason Onset Date Comments Other 08/23/2022 Encounter Details Date Type Department Care Team (Late st Contact Info) Description 08/23/2022 Telephone [facility] Medical Group Family Medicine - [place] [address] [place] [address] Franny Dolan PA-C [address] [place] [address] Other Social History Tobacco Use Types [...] Coronavirus/COVID-19? No / Unsure 08/17/2022 10:34 AM SALES AND SERVICE AGENT documented as of this encounter Plan of Treatment Upcoming Encounters Date Type Department Care Team (Late st Contact Info) Description 11/07/2024 9:40 AM CDT Office Visit [facility] Medical Group Family Medicine - [place] [address] [place] [address] Franny Dolan PA-C [address] [place] [address] documented as of this encounter Visit Diagnoses Not on filedocumented in this encounter Additional Health Concerns Assessment Noted Time PHQ-9 Depression Total Score: 13 023 8:53 AM SALES AND SERVICE AGENT documented as of this encounter Care Teams Jawbone Puller Relationship Specialty Start Date End Date Franny Dolan PA-C [address] [place] [address] PCP - General PHYSICIAN CHARTER REPRESENTATIVE 02/05/21 documented as of this encounter
--- OUTSIDE RECORDS SUMMARY | 2024-06-23 15:32 | XMS_ITS | Encounter Summary ---
Author Organization [facility] Address [address] [place] [address]. [place] [address] [place] [address] Care Team Providers Care Bottle Capper Name Role Phone Franny Dolan PA-C Primary Care Provider +1- [phone] Encounter Details Date Type Department Care Team (Late st Contact Info) Description 04/27/2023 [facility] Message Enc [address] [phone] Franny Dolan PA-C [address] [place] [address] results Social History Tobacco Use Types [...] Description 11/07/2024 9:40 AM CDT Office Visit [address] [phone] Franny Dolan PA-C 100 [place] [address] documented as of this encounter Visit Diagnoses Not on filedocumented in this encounter Additional Health Concerns Assessment Noted Time PHQ-9 Depression Total Score: 13 023 8:53 AM FREQUENCY CHECKER documented as of this encounter Care Teams Bottle Capper Relationship Specialty Start Date End Date Franny Dolan PA-C [address] [place] [address] PCP - General PHYSICIAN BULK DRIVER 02/05/21 documented as of this encounter
--- OUTSIDE RECORDS SUMMARY | 2024-06-23 15:32 | XMS_ITS | Encounter Summary ---
Author Organization [facility] Address [address] [place] [address]. [place], [place] [address] [place] [address] Care Team Providers Care Automobile Service Advisor Name Role Phone Franny Dolan PA-C Primary Care Provider +1- [phone] Encounter Details Date Type Department Care Team (Latest Contact Info) Description 02/14/2023 5:49 PM CDT - 02/14/2023 11:59 PM CDT Hospital Encounter [facility] [address] [place] [address] Adore Wise, INDOOR SPORTS CENTRE MANAGER-C [address]nd [place] [address] Discharge Disposition: Home or Self [...] nxiety,Moderate episode of recurrent major depressive disorder ([facility]CC HHS/HCC) TAKE 1 CAPSULE(60 MG) BY MOUTH DAILY 90 capsule 1 07/04/2022 3 Fenofibrate 134 MG CapIndications:Mixed hyperlipidemia Take 1 capsule by mouth daily with breakfast. 90 capsule 1 01/30/2023 4 glipiZIDE XL (GLUCOTROL XL) 10 MG 24 hr tabletIndications:Ty pe 2 diabetes mellitus with hyperglycemia, without long-term current use of insulin ([facility] HHS/HCC) TAKE 1 TABLET BY MOUTH [...] hyperglycemia, without long-term current use of insulin ([facility]/HCC [facility]/HCC) Take 2 tablets (1,000 mg total) by [...] Description 11/07/2024 9:40 AM CDT Office Visit [facility] Medical Group Family Medicine - [place] [address] [place] [address] Franny Dolan PA-C [address] [place] [address] documented as of this encounter Procedures Procedure Name Priority Date/Time Associated Diagnosis Comments PATHOLOGY Routine 02/15/2023 12:00 AM CDT Onychomycosis documented in this encounter Results * Pathology (02/15/2023 12:00 AM CDT) COPATH REPORT ?[facility] ? [address] [place] ? [place], [place] ??[address] ? [id number] ? Department of Pathology ? Pathology Report ? SURGICAL FINAL REPORT Patient Name: ALICIA BOYCE ? : 1955 (Age: 67) ? Location: [facility] Gender: F ?Collected Date: 02/15/2023 Med Rec #: [id number] ?Date Received: 02/15/2023 Date Reported: 02/16/2023 Provider: [...] fixation with DINO. :pb Billing Fee Code(s): 56718, 32540 [facility] 02/15/2023 02/15/2023 11: 00 AM CDT Comment:Toenail us Adore Wise INDOOR SPORTS CENTRE MANAGER-C PATHOLOGY/CYTOLOGY ORDERABL ES Final Result [facility] [address] [place] [address], documented in this encounter Visit Diagnoses Diagnosis Onychomycosis Dermatophytosis of nail documented in this encounter Additional Health Concerns Assessment Noted Time PHQ-9 Depression Total Score: 13 023 8:53 AM DOCUMENT CONTROL SUPERVISOR documented as of this encounter Care Teams Automobile Service Advisor Relationship Specialty Start Date End Date Franny Dolan PA-C [address] [place] [address] [phone] PCP - General PHYSICIAN ENGINE ROOM HELPER 02/05/21 documented as of this encounter
--- OUTSIDE RECORDS SUMMARY | 2024-06-23 15:32 | XMS_ITS | Encounter Summary ---
Author Organization [facility] Address [address] [place] [address]. [place], [place] [address] [place] [address] Care Team Providers Care Bricklayer Helper Name Role Phone Franny Dolan PA-C Primary Care Provider +1- [phone] Encounter Details Date Type Department Care Team [...] [facility] Family Medicine - [place] [address] [place] [phone] Franny Dolan PA-C [address] [place] [address] [phone] documented as of this encounter Visit Diagnoses Not on filedocumented in this encounter Additional Health Concerns Assessment Noted Time PHQ-9 Depression Total Score: 13 023 8:53 AM RAND BUTTER documented as of this encounter Care Teams Bricklayer Helper Relationship Specialty Start Date End Date Franny Dolan PA-C [address] [place] [address] PCP - General PHYSICIAN TUNA PURSE SEINER 02/05/21 documented as of this encounter
--- OUTSIDE RECORDS SUMMARY | 2024-06-23 15:32 | XMS_ITS | Encounter Summary ---
Author Organization [facility] Address [address] [place] [address]. [place], [place] [address] [place] [address] Care Team Providers Care Spanish Language Lecturer Name Role Phone Franny Dolan PA-C Primary Care Provider +1- [phone] Encounter Details Date Type Department Care Team [...] [facility] Family Medicine - [place] [address] [place] [phone] Franny Dolan PA-C [address] [place] [address] documented as of this encounter Visit Diagnoses Not on filedocumented in this encounter Additional Health Concerns Assessment Noted Time PHQ-9 Depression Total Score: 13 023 8:53 AM FILLER AND TRIMMER documented as of this encounter Care Teams Spanish Language Lecturer Relationship Specialty Start Date End Date Franny Dolan PA-C [address] [place] [address] PCP - General PHYSICIAN LANDSCAPING MANAGER 02/05/21 documented as of this encounter
--- OUTSIDE RECORDS SUMMARY | 2024-06-23 15:32 | XMS_ITS | Encounter Summary ---
Author Organization [facility] Address [address] [place] [address]. [place] [address] [place] [address] Care Team Providers Care Electrician Supervisor Substation Name Role Phone Franny Dolan PA-C Primary Care Provider +1- [phone] Encounter Details Date Type Department Care Team [...] 9:40 AM CDT Office Visit [facility] Medical Group Family Medicine - [place] [address] [place] [phone] Franny Dolan PA-C [address] [place] [address] documented as of this encounter Visit Diagnoses Not on filedocumented in this encounter Additional Health Concerns Assessment Noted Time PHQ-9 Depression Total Score: 13 023 8:53 AM HEREDITARY CANCER PROGRAM COORDINATOR documented as of this encounter Care Teams Electrician Supervisor Substation Relationship Specialty Start Date End Date Franny Dolan PA-C [address] [place] [address] PCP - General PHYSICIAN ADZING AND BORING MACHINE FEEDER 02/05/21 documented as of this encounter
--- OUTSIDE RECORDS SUMMARY | 2024-06-23 15:32 | XMS_ITS | Encounter Summary ---
Author Organization [facility] Address [address] [place] [address]. [place], [place] [address] [place] [address] Care Team Providers Care Founder President And Ceo Name Role Phone Franny Dolan PA-C Primary Care Provider +1- [phone] Encounter Details Date Type Department Care Team [...] [facility] Family Medicine - [place] [address] [place] [phone] Franny Dolan PA-C [address] [place] [address] [phone] documented as of this encounter Visit Diagnoses Not on filedocumented in this encounter Additional Health Concerns Assessment Noted Time PHQ-9 Depression Total Score: 13 023 8:53 AM CYBER FORENSIC SPECIALIST documented as of this encounter Care Teams Founder President And Ceo Relationship Specialty Start Date End Date Franny Dolan PA-C [address] [place] [address] PCP - General PHYSICIAN ELECTROSTATIC PAINT OPERATOR 02/05/21 documented as of this encounter
--- OUTSIDE RECORDS SUMMARY | 2024-06-23 15:32 | XMS_ITS | Encounter Summary ---
Author Organization [facility] Address [address] [place] [address]. [place], [place] [address] [place] [address] Care Team Providers Care Teacher Of The Hearing Impaired Name Role Phone Franny Dolan PA-C Primary Care Provider +1- [phone] Encounter Details Date Type Department Care Team [...] [facility] Family Medicine - [place] [address] [place] [phone] Franny Dolan PA-C [address] [place] [address] documented as of this encounter Visit Diagnoses Not on filedocumented in this encounter Additional Health Concerns Assessment Noted Time PHQ-9 Depression Total Score: 0 05/12/20 21 9:32 AM NUCLEAR REACTOR OPERATOR documented as of this encounter Care Teams Teacher Of The Hearing Impaired Relationship Specialty Start Date End Date Franny Dolan PA-C [address] [place] [address] [place] [address] PCP - General PHYSICIAN HIGH SCHOOL ASSISTANT FOOTBALL COACH 02/05/21 documented as of this encounter
--- OUTSIDE RECORDS SUMMARY | 2024-06-23 15:32 | XMS_ITS | Encounter Summary ---
Author Organization [facility] Address [address] [place] [address]. [place], [place] [address] [place] [address] Care Team Providers Care Livestock Producer Name Role Phone Franny Dolan PA-C Primary Care Provider +1- [phone] Encounter Details Date Type Department Care Team [...] [facility] Family Medicine - [place] [address] [place] [phone] Franny Dolan PA-C [address] [place] [address] documented as of this encounter Visit Diagnoses Not on filedocumented in this encounter Additional Health Concerns Assessment Noted Time PHQ-9 Depression Total Score: 0 05/12/20 21 9:32 AM PRESERVATIONIST documented as of this encounter Care Teams Livestock Producer Relationship Specialty Start Date End Date Franny Dolan PA-C [address] [place] [address] PCP - General PHYSICIAN DRAFTSPERSON 02/05/21 documented as of this encounter
--- OUTSIDE RECORDS SUMMARY | 2024-06-23 15:32 | XMS_ITS | Encounter Summary ---
Author Organization [facility] Address [facility] [place] [address] [place] [address] Care Team Providers Care Water Softener Servicer And Installer Name Role Phone Kami Edmond PA-C Primary Care Provider +1- [phone] Reason for Referral * Procedure (Routine) - Closed Specialty Diagnoses / Procedures Referred By Contpascual t Referred To Contact Diagnoses Chronic cough Dyspnea, unspecified type Procedures Complete PFT (pre/post [place], Lung Vol, Diff Capacity) (18746, 91203, 94686, 38775) Kami Edmond PA-C [address] [place] [address] Phone: tel: fax: Referral ID Status Reason Start Date Expiration Date Visits Re quested Visits Authorized [id number] Closed 08/17/2022 09/17/2023 1 1 D SALES ENGINEER Reason for Visit * Reason Comments Hypertension Encounter Details Date Type Department Care Team (Late st Contact Info) Description 08/17/2022 11:00 AM FIELD SALES ENGINEER Office Visit [facility] Family Medicine - [place] [phone] Kami Edmond PA-C [address] [place] [address] Hypertension Social History Tobacco Use Types [...] Coronavirus/COVID-19? No / Unsure 08/17/2022 10:34 AM FIELD SALES ENGINEER documented as of this encounter Last Filed Vital Signs Vital Sign Reading Time Taken Comments Blood Pressure 150/90 08/17/2022 11:51 AM FIELD SALES ENGINEER Pulse 70 08/17/2022 11:04 AM FIELD SALES ENGINEER Temperature 36.6 ??C (97.9 ??F) 08/17/2022 1 1:04 AM FIELD SALES ENGINEER Respiratory Rate 18 08/17/2022 11:0 4 AM FIELD SALES ENGINEER Oxygen Saturation 98% 08/17/2022 11: 04 AM FIELD SALES ENGINEER Inhaled Oxygen Concentration - - Weight 125.9 kg (277 lb 9.6 oz) 023 11:04 AM FIELD SALES ENGINEER Height 165.1 cm (5' 5 ) 08/17/2022 11:0 4 AM FIELD SALES ENGINEER Body Mass Index 46.2 08/17/2022 11:04 AM FIELD SALES ENGINEER documented in this encounter Progress Notes * [...] Morbid (severe) obesity due to excess calories ([facility]) 3. Body mass index (BMI) 45.0-49.9, adult ([facility]) 4. Chronic cough benzonatate (TESSALON PERLES) 100 MG capsule Complete PFT (pre/post [place], Lung Vol, Diff Capacity) (20382, 88056, 89171, 24383) 5. Dyspnea, unspecified type Complete PFT (pre/post Phillip, Lung Vol, Diff Capacity) (45239, 97489, 30134, 23428) albuterol sulfate HFA 108 (90 Base) MCG/ACT [...] Placed This Encounter ??? Complete PFT (pre/post [place], Lung Vol, Diff Capacity) (15876, 46729, 14629, 13808) ??? lisinopril (PRINIVIL) 10 MG tablet ??? benzonatate (TESSALON PERLES) 100 MG capsule ??? albuterol sulfate HFA 108 (90 Base) MCG/ACT inhaler ??? busPIRone (BUSPAR) 15 MG tablet Reviewed and updated this visit by provider: Tobacco Allergies Meds Problems Med Hx Surg Hx Fam Hx KAMI EDMOND PA-C Referring Provider: No ref. provider found PCP: KAMI EDMOND PA-C D SALES ENGINEER documented in this encounter Plan of Treatment Upcoming Encounters Date Type Department Care Team (Late st Contact Info) Description 11/07/2024 9:40 AM CDT Office Visit [facility] Family Medicine - [place] [phone] Kami Edmond PA-C [address] [place] [address] documented as of this encounter Results * Complete PFT (pre/post Phillip, Lung Vol, Diff Capacity) (02944, 85562, 73722, 18120) (12/22/2022 6:00 AM CDT) Narrative [facility] - 12/22/2022 6:00 AM CDT Sal Chang MD ? 12/25/2022 ??8:46 AM ?? [facility] PULMONARY FUNCTION TEST REPORT Kristal Bustos [...] Chang MD - 12/22/2022 6:00 AM CDT [facility] PULMONARY FUNCTION TEST REPORT Kristal Bustos [...] Edmond PA-C PFT ORDERABLES Final Resu lt [facility] [address] [place] [address], documented in this encounter Visit Diagnoses Diagnosis Essential hypertension- Primary Unspecified essential hypertension Morbid (severe) obesity due to excess calories ([facility]) Body mass index (BMI) 45.0-49.9, adult ([facility]) Chronic cough Cough Dyspnea, unspecified type Allergy, subsequent encounter Generalized anxiety disorder Chronic cough Cough Dyspnea, unspecified type documented in this encounter Additional Health Concerns Assessment Noted Time PHQ-9 Depression Total Score: 13 023 8:53 AM FIELD SALES ENGINEER documented as of this encounter Care Teams Water Softener Servicer And Installer Relationship Specialty Start Date End Date Kami Edmond PA-C [address] [place] [address] PCP - General PHYSICIAN CLINICAL BIOCHEMIST 02/05/21 documented as of this encounter
--- OUTSIDE RECORDS SUMMARY | 2024-06-23 15:32 | XMS_ITS | Encounter Summary ---
Author Organization [facility] Address [address] [place] [address]. [place] [address] [place] [address] Care Team Providers Care Hand Candy Molder Name Role Phone Franny Dolan PA-C Primary Care Provider +1- [phone] Reason for Visit * Reason Onset Date Comments Medication Request 04/26/2022 Encounter Details Date Type Department Care Team (Late st Contact Info) Description 04/26/2022 Telephone [facility] Family Medicine - [place] [address] [place] [address] Franny Dolan PA-C [address] [place] [address] Medication Request Social History Tobacco [...] CDT Franny sent Payam wray and naida gil to the pharmacy for patient/patient was informed and advisedto make an apt if she's no better after taking medications * Ann Armstrong MA - 04/26/2022 5:12 PM CDT Spoke with patient and she said her symptoms mainly consist of cough and runny nose but it's been going on for about 5 days Covid test negative She uses [facility] In [place] * Franny Dolan PA-C - 04/26/2022 5:09 [...] test was negative. brenda In max Pt [phone] Home [phone] documented in this encounter Plan of Treatment Upcoming Encounters Date Type Department Care Team (Late st Contact Info) Description 11/07/2024 9:40 AM CDT Office Visit [facility] Family Medicine - [place] [phone] Franny Dolan PA-C [address] [place] [address] documented as of this encounter Visit Diagnoses Diagnosis Acute cough- Primary Acute non-recurrent maxillary sinusitis documented in this encounter Additional Health Concerns Assessment Noted Time PHQ-9 Depression Total Score: 0 05/12/20 21 9:32 AM SAP PROJECT MANAGER documented as of this encounter Care Teams Hand Candy Molder Relationship Specialty Start Date End Date Franny Dolan PA-C [address] [place] [address] PCP - General PHYSICIAN TEACHING ARTIST 02/05/21 documented as of this encounter
--- OUTSIDE RECORDS SUMMARY | 2024-06-23 15:32 | XMS_ITS | Encounter Summary ---
Author Organization [facility] Address [address] [place] [address]. [place] [address] [place] [address] Care Team Providers Care Electric Mule Driver Name Role Phone Kami Edmond PA-C Primary Care Provider +1- [phone] Reason for Visit * Reason Comments Follow Up 3 month follow up Encounter Details Date Type Department Care Team (Late st Contact Info) Description 03/02/2022 9:40 AM CDT Office Visit [facility] Family Medicine - [place] [phone] Kami Edmond PA-C [address] [place] [address] Follow Up (3 month follow up/) [...] current use of insulin ([facility]) A1C (BACK OFFICE) glipiZIDE XL (GLIPIZIDE XL) 5 MG 24 hr tablet 3. Moderate episode of recurrent major depressive disorder ([facility]) 4. Anxiety busPIRone (BUSPAR) 10 [...] [facility] Family Medicine - [place] [phone] Kami Edmond PA-C [address] [place] [address] documented as of this encounter Procedures Procedure Name Priority Date/Time Associated Diagnosis Comments HEMOGLOBIN, GLYCOSYLATED Today 03/02/2022 Type 2 diabetes mellitus without complication, without long-term current use of insulin ([facility]HS/[facility]) documented in this encounter Results * (ABNORMAL) A1C (BACK OFFICE) (03/02/2022) HGB A1C 10.4([place]) % -100 [facility] 03/02/2022 us Kami Edmond PA-C LABORATORY Final Resu lt -100 [facility] [address] [place] [address], documented in this encounter Visit Diagnoses Diagnosis Essential hypertension- Primary Unspecified essential hypertension Type 2 diabetes mellitus without complication, without long-term current use of insulin ([facility]) Moderate episode of recurrent major depressive disorder ([facility]) Anxiety Anxiety state, unspecified documented in this encounter Additional Health Concerns Assessment Noted Time PHQ-9 Depression Total Score: 0 05/12/20 21 9:32 AM ACTUARIAL MATHEMATICIAN documented as of this encounter Care Teams Electric Mule Driver Relationship Specialty Start Date End Date Kami Edmond PA-C [address] [place] [address] PCP - General PHYSICIAN MANAGER E LEARNING 02/05/21 documented as of this encounter
--- OUTSIDE RECORDS SUMMARY | 2024-06-23 15:32 | XMS_ITS | Encounter Summary ---
Author Organization [facility] Address [address] [place] [address]. [place], [place] [address] [place] [address] Care Team Providers Care Carpenter Repairer Name Role Phone Franny Dolan PA-C Primary Care Provider +1- [phone] Encounter Details Date Type Department Care Team [...] Coronavirus/COVID-19? No / Unsure 07/26/2022 8:38 AM COMMERCIAL REVIEW APPRAISER documented as of this encounter Plan of Treatment Upcoming Encounters Date Type Department Care Team (Late st Contact Info) Description 11/07/2024 9:40 AM CDT Office Visit [facility] Family Medicine - [place] [address] [place] [phone] Franny Dolan PA-C [address] [place] [address] documented as of this encounter Visit Diagnoses Not on filedocumented in this encounter Additional Health Concerns Assessment Noted Time PHQ-9 Depression Total Score: 13 023 8:53 AM COMMERCIAL REVIEW APPRAISER documented as of this encounter Care Teams Carpenter Repairer Relationship Specialty Start Date End Date Franny Dolan PA-C [address] [place] [address] PCP - General PHYSICIAN SECURITY SOLUTIONS ENGINEER 02/05/21 documented as of this encounter
--- OUTSIDE RECORDS SUMMARY | 2024-06-23 15:32 | XMS_ITS | Encounter Summary ---
Author Organization [facility] Address [address] [place] [address]. [place] [address] [place] [address] Care Team Providers Care Graphic Art Designer Name Role Phone Kami Edmond PA-C Primary Care Provider +1- [phone] Reason for Visit * Reason Comments Hypertension Pt presents for foll ow up Diabetes Encounter Details Date Type Department Care Team (Late st Contact Info) Description 04/03/2023 11:20 AM CDT Office Visit [facility] Family Medicine - [place] [phone] Kami Edmond PA-C [address] [place] [address] Hypertension (Pt presents for follow up [...] Chronic kidney disease Depression Diabetes mellitus (HHS/HCC) ([facility]/H[facility]) Disease of thyroid gland Hypertension Polycythemia vera ([facility]) Past Surgical History: Procedure Laterality Date [...] 2 diabetes mellitus with hyperglycemia, unspecified whether residential insulin use (HHS/HCC)([facility]) COMPREHENSIVE METABOLIC PANEL HEMOGLOBIN, GLYCOSYLATED ALBUMIN URINE RANDOM semaglutide (OZEMPIC) 2 MG/3ML injection (PEN) 3. Morbid (severe) obesity due to excess calories ([facility]) 4. Elevated LFTs Recommendations and Plan: Continue [...] [facility] Family Medicine - [place] [phone] Kami Edmond PA-C [address] [place] [address] documented as of this encounter Procedures Procedure Name Priority Date/Time Associated Diagnosis Comments HEMOGLOBIN, GLYCOSYLATED Routine 05/02/2023 8:39 AM LOCKSTITCHER Type 2 diabetes mellitus with hyperglycemia, unspecified whether parts counterman insulin use ([facility]) ALBUMIN URINE RANDOM W/CREATININE Routine 05/02/2023 8:39 AM LOCKSTITCHER Type 2 diabetes mellitus with hyperglycemia, unspecified whether residential insulin use ([facility]) COMPREHENSIVE METABOLIC PANEL Routine 05/02/2023 8:39 AM LOCKSTITCHER Essential hypertension Type 2 diabetes mellitus with hyperglycemia, unspecified whether parts counterman insulin use ([facility]) documented in this encounter Results * ALBUMIN URINE RANDOM (05/02/2023 8:39 AM LOCKSTITCHER) CREATININE RANDOM (U) 116 20 - 275 mg/dL [facility] MICROALBUMIN (U) 0.8 See Note: mg/dL [facility] Comment: Reference Range: Reference Range Not established MICROALB/CREAT 7 <30 mcg/mg creat [facility] Comment: The ADA defines abnormalities in albumin [...] URINE SPECIMEN / Unknown 05/02/2023 8:39 AM LOCKSTITCHER 05/02/2023 8:40 AM LOCKSTITCHER Narrative [facility] - 05/03/2023 3:56 PM LOCKSTITCHER FASTING:YES FASTING: YES Resulting Agency Comment Performing Organization Information: ?Site ID: [place] ?Name: [facility] ?Address: [address] [facility] [place] [address] ?Director: Shante Salvador MD us Kami Edmond PA-C URINE ORDERABLES Final Res ult [facility] [address] [place], [place] [address] * (ABNORMAL) HEMOGLOBIN, GLYCOSYLATED (05/02/2023 8:39 AM LOCKSTITCHER) HGB A1C 6.1(H) <5.7 % of total Hgb [facility] [place] Comment: For someone without known diabetes, [...] of diabetes for children. 05/02/2023 8:39 AM LOCKSTITCHER 05/02/2023 8:40 AM LOCKSTITCHER Narrative [facility] - [facility] - 05/03/2023 3:56 PM LOCKSTITCHER FASTING:YES FASTING: YES Resulting Agency Comment Performing Organization Information: ?Site ID: SL ?Name: [facility] ?Address: [facility] [place] [address] ?Director: Shante Salvador us Kami Edmond PA-C LABORATORY Final Resu lt [facility] - [facility] [address], * (ABNORMAL) COMPREHENSIVE METABOLIC PANEL (05/02/2023 8:39 AM LOCKSTITCHER) GLUCOSE 89 65 - 99 mg/dL [facility] Comment: ? Fasting reference interval BUN 16 7 - 25 mg/dL [facility] CREATININE S/P/B 0.83 0.50 - 1.05 mg/dL [facility] GFR ESTIMATE 77 > OR = 60 mL/min/1. 73m2 [facility] BUN CREATININE RATIO SEE NOTE: (calc) [facility] Comment: ?? Not Reported: BUN and Creatinine are within ?? reference range. ? SODIUM S/P/B 139 135 - 146 mmol/L [facility] POTASSIUM S/P/B 4.3 3.5 - 5.3 mmol/L [facility] CHLORIDE S/P/B 101 98 - 110 mmol/L [facility] CO2 29 20 - 32 mmol/L [facility] CALCIUM S/P/B 10.3 8.6 - 10.4 mg/dL [facility] TOTAL PROTEIN S/P/B 7.1 6.1 - 8.1 g/dL [facility] ALBUMIN S/P/B 4.3 3.6 - 5.1 g/dL [facility] GLOBULIN 2.8 1.9 - 3.7 g/dL (calc) [facility] ALBUMIN/GLOBULI N RATIO 1.5 1.0 - 2.5 (calc) [facility] BILIRUBIN TOTAL S/P/B 0.7 0.2 - 1.2 mg/dL [facility] ALKALINE PHOSPHATASE S/P/B 99 37 - 153 U/L [facility] AST 36(H) 10 - 35 U/L [facility] ALT 35(H) 6 - 29 U/L [facility] 05/02/2023 8:39 AM LOCKSTITCHER 05/02/2023 8:40 AM LOCKSTITCHER Narrative [facility] - 05/03/2023 3:56 PM LOCKSTITCHER FASTING:YES FASTING: YES Resulting Agency Comment Performing Organization Information: ?Site ID: [place] ?Name: [facility] ?Address: [address] [place] [address] ?Director: Shante Salvador MD us Kami Edmond PA-C LABORATORY Final Resu lt [facility] [address] [place] [address], documented in this encounter Visit Diagnoses Diagnosis Essential hypertension- Primary Unspecified essential hypertension Type 2 diabetes mellitus with hyperglycemia, unspecified whether residential insulin use ([facility] HHS/HCC) Morbid (severe) obesity due to excess calories ([facility]) Elevated LFTs Other abnormal blood chemistry documented in this encounter Additional Health Concerns Assessment Noted Time PHQ-9 Depression Total Score: 13 023 8:53 AM LOCKSTITCHER documented as of this encounter Care Teams Graphic Art Designer Relationship Specialty Start Date End Date Kami Edmond PA-C [address] [place] [address]. [place] [address] PCP - General PHYSICIAN TIRE ASSEMBLER 02/05/21 documented as of this encounter
--- OUTSIDE RECORDS SUMMARY | 2024-06-23 15:32 | XMS_ITS | Encounter Summary ---
Author Organization [facility] Address [address] [place] [address]. [place], [place] [address] [place] [address] Care Team Providers Care Care Management Specialist Name Role Phone Franny Dolan PA-C Primary Care Provider +1- [phone] Encounter Details Date Type Department Care Team [...] [facility] Family Medicine - [place] [address] [place] [phone] Franny Dolan PA-C [address] [place] [address] documented as of this encounter Visit Diagnoses Not on filedocumented in this encounter Additional Health Concerns Assessment Noted Time PHQ-9 Depression Total Score: 0 05/12/20 21 9:32 AM HOUSE PAINTER HELPER documented as of this encounter Care Teams Care Management Specialist Relationship Specialty Start Date End Date Franny Dolan PA-C [address] [place] [address] PCP - General PHYSICIAN WOODS WARDEN 02/05/21 documented as of this encounter
--- OUTSIDE RECORDS SUMMARY | 2024-06-23 15:32 | XMS_ITS | Encounter Summary ---
Author Organization [facility] Address [address] [place] [address]. [place] [address] [place] [address] Care Team Providers Care Meter Shop Supervisor Name Role Phone Franny Dolan PA-C Primary Care Provider +1- [phone] Encounter Details Date Type Department Care Team (Late st Contact Info) Description 02/14/2022 Orders Only [facility] Family Medicine - [place] [address] [place] [address] Adore Samayoa MA Social History [...] CDT We got a fax over from [facility] [employer] that patient would like to get her cetirizine from them not instead of mailorder. documented in this encounter Plan of Treatment Upcoming Encounters Date Type Department Care Team (Late st Contact Info) Description 11/07/2024 9:40 AM CDT Office Visit [facility] Family Medicine - [place] [address] [place] [address] Franny Dolan PA-C [address] [place] [address] documented as of this encounter Visit Diagnoses Diagnosis Allergies documented in this encounter Additional Health Concerns Assessment Noted Time PHQ-9 Depression Total Score: 0 05/12/20 9:32 AM TELEGRAPHER AGENT documented as of this encounter Care Teams Meter Shop Supervisor Relationship Specialty Start Date End Date Franny Dolan PA-C [address] [place] [address] PCP - General PHYSICIAN PAINT FACTORY WORKER 02/05/21 documented as of this encounter
--- OUTSIDE RECORDS SUMMARY | 2024-06-23 15:32 | XMS_ITS | Encounter Summary ---
Author Organization [facility] Address [address] [place] [address]. [place], [place] [address] [place] [address] Care Team Providers Care Document Management Technician Name Role Phone Kami Edmond PA-C Primary Care Provider +1- [phone] Reason for Referral * Consultation (Routine) - Closed Specialty Diagnoses / Procedures Referred By Contact Referred To Contact GASTROENTEROLOGY Diagnoses Screening for colon cancer History of colon polyps Procedures OFFICE/OUTPT VISIT,NEW,LEVL III OFFICE/OUTPT VISIT,NEW,LEVL IV OFFICE/OUTPT VISIT,NEW,LEVL V OFFICE/OUTPT VISIT,EST,LEVL III OFFICE/OUTPT VISIT,EST,LEVL IV OFFICE/OUTPT VISIT,EST,LEVL V Kami Edmond PA-C [address] [place] [address] Phone: tel: fax: [facility] Multispecialty Care - [facility] [address] [facility], [address] [place] [address] Phone: tel: fax: Referral ID Status Reason Start Date Expiration Date Visits Re quested Visits Authorized [id number] Closed 10/18/2022 11/19/2023 1 1 Scheduling Instructions Needs repeat colonoscopy * Imaging (Routine) - Closed Specialty Diagnoses / Procedures Referred By Contac t Referred To Contact RADIOLOGY Diagnoses Screening mammogram, encounter for Procedures MG SCREENING W JUAN WENDY DIGI Kami Edmond PA-C [address] [place] [address] Phone: tel: fax: [facility] [address] [facility] [address] [place] [address] Phone: tel: fax: Referral ID Status Reason Start Date Expiration Date V isits Requested Visits Authorized [id number] Closed Mammogram 10/18/2022 10/19/2023 99 99 Reason for Visit * Reason Comments Hypertension Pt presents to f.u f or htn and labs Encounter Details Date Type Department Care Team (Late st Contact Info) Description 10/18/2022 11:40 AM CDT Office Visit [facility] Family Medicine [address] [address] Kami Edmond PA-C [address] [place] [phone] Hypertension (Pt presents to f.u for htn [...] Body Mass Index 46.49 08/17/2022 11:04 AM COMMODITY SPECIALIST documented in this encounter Progress Notes * [...] Office Visit [facility] Family Medicine - [place] [phone] Kami Edmond PA-C [address] [place] [address] [phone] Scheduled Referrals Name Type Priority Associated Diagnoses Orde r Schedule Ambulatory referral to Gastroenterology ([facility] [place]) Referral Routine Screening for colon cancer History [...] HEPATITIS C AB NON-REACT SULAIMAN NON-REACT SULAIMAN Brit[facility] Comment: HCV antibody was non-reactive. There is no laboratory evidence of HCV infection. In most cases, no further action is required. However, if recent HCV exposure is suspected, a test for HCV RNA (test code 19209) is suggested. For additional information please refer to http://education.MogiMe.Sarta/faq/EZJ61m9 (This link is being provided for informational/ educational purposes only.) 01/24/2023 8:15 AM CDT 01/24/2023 8:17 AM CDT Narrative Brit[facility] William BENITO - 01/25/2023 3:32 AM CDT FASTING:YES FASTING: YES Resulting Agency Comment Performing Organization Information: ?Site ID: [id number] ?Name: [facility] ?Address: [address] [address] ?Director: Shante Salvador MD us Kami Edmond PA-C LABORATORY Final Resu lt [facility] [address] [address] [address], * (ABNORMAL) COMPREHENSIVE METABOLIC PANEL (01/24/2023 8:15 AM CDT) GLUCOSE 173(H) 65 - 99 mg/dL [place] Comment: ? Fasting reference interval For someone without known diabetes, a glucose value >125 mg/dL indicates that they may have diabetes and this should be confirmed with a follow-up test. BUN 16 7 - 25 mg/dL [place] CREATININE S/P/B 0.83 0.50 - 1.05 mg/dL [place] GFR ESTIMATE 78 > OR = 60 mL/min/1. 73m2 [place] BUN CREATININE RATIO SEE NOTE: (calc) [place] Comment: ?? Not Reported: BUN and Creatinine are within ?? reference range. ? SODIUM S/P/B 137 135 - 146 mmol/L [place] POTASSIUM S/P/B 4.5 3.5 - 5.3 mmol/L [place] CHLORIDE S/P/B 98 98 - 110 mmol/L [place] CO2 30 20 - 32 mmol/L [place] CALCIUM S/P/B 10.6(H) 8.6 - 10.4 mg/dL [place] TOTAL PROTEIN S/P/B 7.5 6.1 - 8.1 g/dL [place] ALBUMIN S/P/B 4.6 3.6 - 5.1 g/dL [place] GLOBULIN 2.9 1.9 - 3.7 g/dL (calc) [place] ALBUMIN/GLOBULIN RATIO 1.6 1.0 - 2.5 (calc) [place] BILIRUBIN TOTAL S/P/B 0.9 0.2 - 1.2 mg/dL [facility] [employer] [place] ALKALINE PHOSPHATASE S/P/B 135 37 - 153 U/L [facility] [employer] [place] AST 55(H) 10 - 35 U/L [place] ALT 46(H) 6 - 29 U/L [facility] [employer] [place] 01/24/2023 8:15 AM CDT 01/24/2023 8:17 AM CDT Narrative [facility] - 01/25/2023 3:32 AM CDT FASTING:YES FASTING: YES Resulting Agency Comment Performing Organization Information: ?Site ID: [id number] ?Name: [facility] ?Address: [address] [place] [address] ?Director: Shante Salvador us Kami Edmond PA-C LABORATORY Final Resu lt [facility] [address] [address], * (ABNORMAL) HEMOGLOBIN, GLYCOSYLATED (01/24/2023 8:15 AM CDT) HGB A1C 8.8(H) <5.7 % of total Hgb [facility] [employer] [place] Comment: For someone without known diabetes, [...] Performing Organization Information: ?Site ID: SL ?Name: [facility] ?Address: On license of [facility] [place] [address] ?Director: Shante Salvador us Kami Edmond PA-C LABORATORY Final Resu lt [facility] [address] [place] [address], [place] * MG SCREENING W JUAN WENDY [...] Depression Total Score: 13 023 8:53 AM COMMODITY SPECIALIST documented as of this encounter Care Teams Document Management Technician Relationship Specialty Start Date End Date Kami Edmond PA-C [address] [place] [address] PCP - General PHYSICIAN PULL WORKER 02/05/21 documented as of this encounter
--- OUTSIDE RECORDS SUMMARY | 2024-06-23 15:32 | XMS_ITS | Encounter Summary ---
Author Organization [facility] Address [address] [place] [address]. [place] [address] [place] [address] Care Team Providers Care Turnstile Attendant Name Role Phone Franny Dolan PA-C Primary Care Provider +1- [phone] Reason for Visit * Reason Comments New Patient Referral colon denvere wicho (Hx colon polyps) * Consultation/Treatment (Routine) - Closed Specialty Diagnoses / Procedures Referred By Contact Referred To Contact Nurse Practitioner Family / GASTROENTEROLOGY Diagnoses Screening for colon cancer History of colon polyps Screening for colon cancer/ History of colon polyps Procedures NEW PATIENT Franny Dolan PA-C [address] [place] [address] Phone: tel: fax: Jenna Garza NP [address] [facility] [address] [place] [address] Phone: tel:[phone] fax:[phone] Referral ID Status Reason Start Date Expiration Date Visits Re quested Visits Authorized [id number] Closed 01/03/2023 01/04/2024 99 99 Encounter Details Date Type Department Care Team (Late st Contact Info) Description 01/03/2023 10:00 AM CDT Office Visit [facility] Multispecialty Care - [facility] [address] [facility] [address] [place] [address] Franny Dolan PA-C [address] [place] [address] [place] [address] Jenna Garza NP [address] [facility] [address] [place] [address] New Patient (Referral colon screening (Hx colon [...] help with normal bowel movements. ?? 2018 [employer]. and/or its affiliates. All Rights Reserved. Amount [...] with added ascorbic acid 1 cup 0.5 Juana Diaz 1 cup 0.7 Vegetables Cooked Green beans 1 cup 4.0 Carrots 1/2 cup sliced 2.3 Peas 1 cup 8.8 Potato (baked, with skin) 1 medium potato 3.8 Raw [place] (with peel) 1 cucumber 1.5 Lettuce 1 [...] for Standard Reference. Available at http://www.nal.usda.gov/fnic/foodcomp/search/. Graphic 36765 Version 4.0 documented in this encounter Progress [...] Weston Burgos MD at 05/08/2023 6:04 PM SPRAYER AUTOMATIC SPRAY MACHINE YER AUTOMATIC SPRAY MACHINE documented in this encounter Plan of Treatment Upcoming Encounters Date Type Department Care Team (Late st Contact Info) Description 11/07/2024 9:40 AM CDT Office Visit [facility] Family Medicine - [address] [address] Franny Dolan PA-C [address] [place] [address] documented as of this encounter Visit Diagnoses Diagnosis Encounter to establish care- Primary Other reasons for seeking consultation Irritable bowel syndrome with diarrhea Irritable bowel syndrome documented in this encounter Additional Health Concerns Assessment Noted Time PHQ-9 Depression Total Score: 13 023 8:53 AM SPRAYER AUTOMATIC SPRAY MACHINE documented as of this encounter Care Teams Turnstile Attendant Relationship Specialty Start Date End Date Franny Dolan PA-C [address] [place] [address] PCP - General PHYSICIAN CELLO TEACHER 02/05/21 documented as of this encounter
--- OUTSIDE RECORDS SUMMARY | 2024-06-23 15:32 | XMS_ITS | Encounter Summary ---
Author Organization [facility] Address [address] [place] [address]. [place], [place] [address] [place] [address] Care Team Providers Care Die Caster Name Role Phone Franny Dolan PA-C Primary Care Provider +1- [phone] Encounter Details Date Type Department Care Team [...] Coronavirus/COVID-19? No / Unsure 08/17/2022 10:34 AM FREIGHT WEIGHER documented as of this encounter Plan of Treatment Upcoming Encounters Date Type Department Care Team (Late st Contact Info) Description 11/07/2024 9:40 AM CDT Office Visit [facility] Family Medicine - [place] [address] [place] [phone] Franny Dolan PA-C [address] [place] [address] documented as of this encounter Visit Diagnoses Not on filedocumented in this encounter Additional Health Concerns Assessment Noted Time PHQ-9 Depression Total Score: 13 023 8:53 AM FREIGHT WEIGHER documented as of this encounter Care Teams Die Caster Relationship Specialty Start Date End Date Franny Dolan PA-C [address] [place] [address] PCP - General PHYSICIAN MOLD BLOWER 02/05/21 documented as of this encounter
--- OUTSIDE RECORDS SUMMARY | 2024-06-23 15:33 | XMS_ITS | Encounter Summary ---
Author Organization [facility] Address [address] [place] [address]. [place] [address] [place] [address] Care Team Providers Care Wrap Knitting Machine Operator Name Role Phone Franny Dolan PA-C Primary Care Provider +1- [phone] Encounter Details Date Type Department Care Team (Late st Contact Info) Description 05/31/2021 - 05/31/2021 11:59 PM HAND II THERMAL CUTTER Hospital Encounter [facility] [address] [place] [address] Franny Dolan PA-C [address] [facility] [place] [address] Discharge Disposition: Home or Self [...] COVID-19? No / Unsure 05/30/2021 2:23 PM HAND II THERMAL CUTTER documented as of this encounter Medications at [...] nxiety,Moderate episode of recurrent major depressive disorder ([facility] HHS/HCC) TAKE 1 CAPSULE DAILY 90 capsule 3 04/08/2021 2 fenofibrate micronized 134 MG capsuleIndications:M ixed hyperlipidemia Take 1 capsule (134 mg total) by mouth daily. 90 capsule 1 05/12/2021 2 hydroCHLOROthiazide 12.5 MG capsule Take 12.5 mg by mouth daily. 2 METFORMIN 500 MG tabletIndications:Ty pe 2 diabetes mellitus without complication, without long-term current use of insulin ([facility]) TAKE 1 TABLET TWICE A DAY 180 [...] [facility] Family Medicine - [address] [address] Franny Dolan PA-C [address] [place] [address] documented as of this encounter Visit Diagnoses Not on filedocumented in this encounter Additional Health Concerns Infection Onset Date Last Indicated Resolved Time COVID-19 Rule Out 05/31/2021 05/31/2021 05/31/2021 11:28 AM HAND II THERMAL CUTTER COVID-19 Rule Out 05/31/2021 05/31/2021 06/01/2021 11:59 PM HAND II THERMAL CUTTER Assessment Noted Time PHQ-9 Depression Total Score: 0 05/12/20 9:32 AM HAND II THERMAL CUTTER documented as of this encounter Care Teams Wrap Knitting Machine Operator Relationship Specialty Start Date End Date Franny Dolan PA-C [address] [place] [address] PCP - General PHYSICIAN MANAGER BEAUTY 02/05/21 documented as of this encounter
--- OUTSIDE RECORDS SUMMARY | 2024-06-23 15:33 | XMS_ITS | Encounter Summary ---
Author Organization [facility] Address [address] [place] [address]. [place] [address] [place] [address] Care Team Providers Care Acid Pump Operator Name Role Phone Franny Dolan PA-C Primary Care Provider +1- [phone] Reason for Visit * Reason Comments Mammogram [...] [facility] Family Medicine - [place] [address] [place] [phone] Franny Dolan PA-C 100 [place] [address] documented as of this encounter Procedures Procedure [...] Total Score: 0 05/12/20 21 9:32 AM DIRECTOR OF INSTITUTIONAL GIVING documented as of this encounter Care Teams Acid Pump Operator Relationship Specialty Start Date End Date Franny Dolan PA-C [address] [place] [address] PCP - General PHYSICIAN OUTSIDE SALES 02/05/21 documented as of this encounter
--- OUTSIDE RECORDS SUMMARY | 2024-06-23 15:33 | XMS_ITS | Encounter Summary ---
Author Organization [facility] Address [address] [place] [address]. [place], [place] [address] [place] [address] Care Team Providers Care Sales Trader Name Role Phone Alex Browne MD Primary [...] [facility] Family [facility] - [place] 100 [place] [address] Franny Dolan PA-C 100 [place] [address] documented as of this encounter Visit Diagnoses Not on filedocumented in this encounter Care Teams Sales Trader Relationship Specialty Start Date End Date Alxe Browne MD PCP - General 08/29/14 02/04/21 documented as of this encounter
--- OUTSIDE RECORDS SUMMARY | 2024-06-23 15:33 | XMS_ITS | Encounter Summary ---
Author Organization [facility] Address [address] [place] [address]. [place] [address] [place] [address] Care Team Providers Care Kitchen Aide Name Role Phone Franny Dolan PA-C Primary Care Provider +1- [phone] Reason for Visit * Reason Comments Dilated [...] [facility] Family Medicine - [place] 100 [place] [phone] Franny Dolan PA-C [address] [place] [address] documented as of this encounter Procedures Procedure Name Priority Date/Time Associated Diagnosis Comments DIABETIC RETINOPATHY EXAM (NEGATIVE)(SCAN ORDER) Routine 11/28/2021 documented in this encounter Results * DIABETIC RETINOPATHY EXAM (NEGATIVE)(SCAN) (11/28/2021) us Documents Scanned SCANNING Final Result [facility] documented in this encounter Visit Diagnoses Not on filedocumented in this encounter Additional Health Concerns Assessment Noted Time PHQ-9 Depression Total Score: 0 05/12/20 21 9:32 AM MICROFILMER documented as of this encounter Care Teams Kitchen Aide Relationship Specialty Start Date End Date Franny Dolan PA-C [address] [place] [address] PCP - General PHYSICIAN INSPECTOR BALL POINTS 02/05/21 documented as of this encounter
--- OUTSIDE RECORDS SUMMARY | 2024-06-23 15:33 | XMS_ITS | Encounter Summary ---
Author Organization [facility] Address [address] [place] [address]. [place] [address] [place] [address] Care Team Providers Care Rust Proofer Name Role Phone Kami Edmond PA-C Primary Care Provider +1- [phone] Reason for Visit * Reason Comments Diabetes Patient here for fol low up diabetes and labs Encounter Details Date Type Department Care Team (Late st Contact Info) Description 11/30/2021 9:20 AM CDT Office Visit [facility] Family [place] - [place] [phone] Kami Edmond PA-C [address] [place] [address] Diabetes (Patient here for follow up [...] complication, without long-term current use of insulin ([facility]) 4. Mixed hyperlipidemia 5. Hypothyroidism, [...] Description 11/07/2024 9:40 AM CDT Office Visit [facility] Family Medicine - [place] 100 [place] [phone] Kami Edmond PA-C [address] [place] [address] documented as of this encounter Visit Diagnoses Diagnosis Need for shingles vaccine- Primary Need for prophylactic vaccination and inoculation against other viral diseases Essential hypertension Unspecified essential hypertension Type 2 diabetes mellitus without complication, without long-term current use of insulin ([facility]) Mixed hyperlipidemia Hypothyroidism, unspecified type Moderate episode of recurrent major depressive disorder ([facility]) Anxiety Anxiety state, unspecified Need for Tdap vaccination Need for prophylactic vaccination with combined cedguqnhks-jregesx-irebberkz (DTP) vaccine Allergic conjunctivitis of both eyes Other chronic allergic conjunctivitis documented in this encounter Additional Health Concerns Assessment Noted Time PHQ-9 Depression Total Score: 0 05/12/20 9:32 AM CASKET UPHOLSTERER documented as of this encounter Care Teams Rust Proofer Relationship Specialty Start Date End Date Kami Edmond PA-C [address] [place] [address] PCP - General PHYSICIAN LAND EXAMINER 02/05/21 documented as of this encounter
--- OUTSIDE RECORDS SUMMARY | 2024-06-23 15:33 | XMS_ITS | Encounter Summary ---
Author Organization [facility] Address [address] [place] [address]. [place], [place] [address] [place] [address] Care Team Providers Care Chief Technology Officer Name Role Phone Alex Browne MD Primary [facility] - [place] 100 [place] [address] Franny Dolan PA-C 100 [place] [address] documented as of this encounter Visit Diagnoses Not on filedocumented in this encounter Care Teams Chief Technology Officer Relationship Specialty Start Date End Date Alex Browne MD PCP - General 08/29/14 02/04/21 documented as of this encounter
--- OUTSIDE RECORDS SUMMARY | 2024-06-23 15:33 | XMS_ITS | Encounter Summary ---
Author Organization [facility] Address [address] [place] [address]. [place] [address] [place] [address] Care Team Providers Care Baker Second Name Role Phone Franny Dolan PA-C Primary Care Provider +1- [phone] Encounter Details Date Type Department Care Team (Late st Contact Info) Description 05/31/2021 Orders Only [facility] Family Medicine - [place] 100 [place] [phone] Franny Dolan PA-C 100 [place] [address] Social History Tobacco Use Types [...] COVID-19? No / Unsure 05/30/2021 2:23 PM OPTICAL LABORATORY TECHNICIAN documented as of this encounter Plan of Treatment Upcoming Encounters Date Type Department Care Team (Late st Contact Info) Description 11/07/2024 9:40 AM CDT Office Visit [facility] Family Medicine - [place] 100 [place] [address] Franny Dolan PA-C [address] [place] [address] documented as of this encounter Visit Diagnoses Diagnosis Preop examination Preoperative examination, unspecified documented in this encounter Additional Health Concerns Infection Onset Date Last Indicated Resolved Time COVID-19 Rule Out 05/31/2021 05/31/2021 05/31/2021 11:28 AM OPTICAL LABORATORY TECHNICIAN COVID-19 Rule Out 05/31/2021 05/31/2021 06/01/2021 11:59 PM OPTICAL LABORATORY TECHNICIAN Assessment Noted Time PHQ-9 Depression Total Score: 0 05/12/20 9:32 AM OPTICAL LABORATORY TECHNICIAN documented as of this encounter Care Teams Baker Second Relationship Specialty Start Date End Date Franny Dolan PA-C [address] [place] [address] PCP - General PHYSICIAN PUBLIC RELATIONS SENIOR ASSOCIATE 02/05/21 documented as of this encounter
--- OUTSIDE RECORDS SUMMARY | 2024-06-23 15:33 | XMS_ITS | Encounter Summary ---
Author Organization [facility] Address [address] [place] [address]. [place], [place] [address] [place] [address] Care Team Providers Care Air Brush Decorator Name Role Phone Alex Browne MD Primary [...] [facility] Family Medicine - [place] 100 [place] [address] Franny Dolan PA-C 100 [place] [address] documented as of this encounter Visit Diagnoses Not on filedocumented in this encounter Care Teams Air Brush Decorator Relationship Specialty Start Date End Date Alex Browne MD PCP - General 08/29/14 02/04/21 documented as of this encounter
--- OUTSIDE RECORDS SUMMARY | 2024-06-23 15:33 | XMS_ITS | Encounter Summary ---
Author Organization [facility] Address [address] [place] [address]. [place], [place] [address] [place] [address] Care Team Providers Care Weave Room Supervisor Name Role Phone Alex Browne MD [...] Description 11/07/2024 9:40 AM CDT Office Visit [facility] Family Medicine - [place] 100 [place] [address] Franny Dolan PA-C 100 [place] [address] documented as of this encounter Visit Diagnoses Not on filedocumented in this encounter Care Teams Weave Room Supervisor Relationship Specialty Start Date End Date Alex Browne MD PCP - General 08/29/14 02/04/21 documented as of this encounter
--- OUTSIDE RECORDS SUMMARY | 2024-06-23 15:33 | XMS_ITS | Encounter Summary ---
Author Organization [facility] Address [address] [place] [address]. [place], [place] [address] [place] [address] Care Team Providers Care Child Attendant Name Role Phone Alex Browne MD Primary [...] [facility] Family [facility] - [place] 100 [place] [address] Franny Dolan PA-C 100 [place] [address] documented as of this encounter Visit Diagnoses Not on filedocumented in this encounter Care Teams Child Attendant Relationship Specialty Start Date End Date Alex Browne MD PCP - General 08/29/14 02/04/21 documented as of this encounter
--- OUTSIDE RECORDS SUMMARY | 2024-06-23 15:33 | XMS_ITS | Encounter Summary ---
Author Organization [facility] Address [address] [place] [address]. [place] [address] [place] [address] Care Team Providers Care Planting Machine Crewman Name Role Phone Franny Dolan PA-C Primary Care Provider +1- [phone] Encounter Details Date Type Department Care Team [...] [facility] Family [facility] - [place] [address] [place] [phone] Franny Dolan PA-C [address] [place] [address] documented as of this encounter Visit Diagnoses Not on filedocumented in this encounter Additional Health Concerns Assessment Noted Time PHQ-9 Depression Total Score: 13 021 11:45 AM CDT documented as of this encounter Care Teams Planting Machine Crewman Relationship Specialty Start Date End Date Franny Dolan PA-C [address] [place] [address] PCP - General PHYSICIAN CLASSIFIER 02/05/21 documented as of this encounter
--- OUTSIDE RECORDS SUMMARY | 2024-06-23 15:33 | XMS_ITS | Encounter Summary ---
Author Organization [facility] Address [address] [place] [address]. [place], [place] [address] [place] [address] Care Team Providers Care Showroom Sales Consultant Name Role Phone Alex Browne MD [...] [facility] - [place] 100 [place] [address] Franny Dolan PA-C 100 [place] [address] documented as of this encounter Visit Diagnoses Not on filedocumented in this encounter Care Teams Showroom Sales Consultant Relationship Specialty Start Date End Date Alex Browne MD PCP - General 08/29/14 02/04/21 documented as of this encounter
--- OUTSIDE RECORDS SUMMARY | 2024-06-23 15:33 | XMS_ITS | Encounter Summary ---
Author Organization [facility] Address [address] [place] [address]. [place] [address] [place] [address] Care Team Providers Care Parts Facilitator Name Role Phone Franny Dolan PA-C Primary Care Provider +1- [phone] Reason for Visit * Reason Comments Image [...] COVID-19? No / Unsure 05/30/2021 2:23 PM HOTEL DINING ROOM CASHIER documented as of this encounter Plan of Treatment Upcoming Encounters Date Type Department Care Team (Late st Contact Info) Description 11/07/2024 9:40 AM CDT Office Visit [facility] Family Medicine - [place] [address] [place] [phone] Franny Dolan PA-C [address] [place] [address] documented as of this encounter Procedures Procedure [...] Depression Total Score: 0 05/12/20 9:32 AM HOTEL DINING ROOM CASHIER documented as of this encounter Care Teams Parts Facilitator Relationship Specialty Start Date End Date Franny Dolan PA-C [address] [place] [address] PCP - General PHYSICIAN CLAY CARMAN 02/05/21 documented as of this encounter
--- OUTSIDE RECORDS SUMMARY | 2024-06-23 15:33 | XMS_ITS | Encounter Summary ---
Author Organization [facility] Address [address] [place] [address]. [place] [address] [place] [address] Care Team Providers Care Clubhouse Attendant Name Role Phone Kami Edmond PA-C Primary Care Provider +1- [phone] Encounter Details Date Type Department Care Team (Late st Contact Info) Description 05/12/2021 10:30 AM PRISON OFFICER - 05/12/2021 11:59 PM [facility] En[facility] EKG [address] [place], [place] [phone] Kami Edmond PA-C [address] [place] [address] Discharge Disposition: Home or Self Care [...] COVID-19? No / Unsure 05/12/2021 9:12 AM PRISON OFFICER documented as of this encounter Medications at [...] of recurrent major depressive disorder ([facility] HHS/HCC) TAKE 1 CAPSULE DAILY 90 capsule 3 04/08/2021 2 fenofibrate micronized 134 MG capsuleIndications:M ixed hyperlipidemia Take 1 capsule (134 mg total) by mouth daily. 90 capsule 1 05/12/2021 2 hydroCHLOROthiazide 12.5 MG capsule Take 12.5 mg by mouth daily. 2 METFORMIN 500 MG tabletIndications:Ty pe 2 diabetes mellitus without complication, without long-term current use of insulin ([facility] HHS/HCC) TAKE 1 TABLET TWICE [...] [facility] [place] Family Medicine - [place] 100 [place] [phone] Kami Edmond PA-C 100 [place] [address] documented as of this encounter Procedures Procedure Name Priority Date/Time Associated Diagnosis Comments ECG 12-LEAD Routine 05/12/2021 11:16 AM PRISON OFFICER Fatty liver documented in this encounter Results * ECG 12 lead (05/12/2021 11:16 AM PRISON OFFICER) 05/12/2021 11:1 6 AM PRISON OFFICER Narrative [facility] - 05/12/2021 12:41 PM PRISON OFFICER ?[facility] ? [address] [facility] ? Test Date: ?2021-05-12 Pat Name: ? ALICIA BOYCE ?Department: ? Room: ? Gender: ? Female ? Wholesale Account Executive: ?? CDN : ?[id number] ? Requested By: KAMI ESPINOZAULTS Order Number: [id number] ? Reading : ?? Dimitri Holman ? Measurements Intervals ?[place] ? Rate: ? 56 ? P: ?72 [place]: ? 175 ?QRS: ?8 QRSD: ? 97 ? T: ?26 QT: ? 415 ? QTc: ?402 ? Interpretive Statements SINUS BRADYCARDIA LOW QRS VOLTAGE IN PRECORDIAL LEADS Compared to ECG 03/01/2013 10:00:24 No significant changes ON OFFICER Procedure Note Dimitri Holman MD - 05/12/2021 [facility] Neeru Sanchez [place] Test Date: 2021-05-12 Pat Name: ALICIA BOYCE Department: Room: Gender: Female Wholesale Account Executive: GEETA : 1955 Requested By: KAMI EDMOND Order Number: [id number] Reading MD: Dimitri Holman Measurements Intervals [place] Rate: 56 P: 72 [place]: 175 QRS: 8 QRSD: 97 T: 26 QT: 415 QTc: 402 Interpretive Statements SINUS BRADYCARDIA LOW QRS VOLTAGE IN PRECORDIAL LEADS Compared to ECG 03/01/2013 10:00:24 No significant changes ON OFFICER us Kami Edmond PA-C ECG ORDERABLES Final Resu lt [facility] documented in this encounter Visit Diagnoses Diagnosis Fatty liver- Primary Other chronic nonalcoholic liver disease documented in this encounter Additional Health Concerns Assessment Noted Time PHQ-9 Depression Total Score: 0 05/12/20 21 9:32 AM PRISON OFFICER documented as of this encounter Care Teams Clubhouse Attendant Relationship Specialty Start Date End Date Kami Edmond PA-C [address] [place] [address] PCP - General PHYSICIAN DENTAL OFFICE RECEPTIONIST 02/05/21 documented as of this encounter
--- OUTSIDE RECORDS SUMMARY | 2024-06-23 15:33 | XMS_ITS | Encounter Summary ---
Author Organization [facility] Address [address] [place] [address]. [place], [place] [address] [place] [address] Care Team Providers Care Sleep Scientist Name Role Phone Franny Dolan PA-C Primary Care Provider +1- [phone] Encounter Details Date Type Department Care Team [...] COVID-19? No / Unsure 05/30/2021 2:23 PM WOOD TREATING INSPECTOR documented as of this encounter Plan of Treatment Upcoming Encounters Date Type Department Care Team (Late st Contact Info) Description 11/07/2024 9:40 AM CDT Office Visit [facility] Family Medicine - [place] [address] [place] [phone] Franny Dolan PA-C [address] [place] [address] documented as of this encounter Visit Diagnoses Not on filedocumented in this encounter Additional Health Concerns Assessment Noted Time PHQ-9 Depression Total Score: 0 05/12/20 21 9:32 AM WOOD TREATING INSPECTOR documented as of this encounter Care Teams Sleep Scientist Relationship Specialty Start Date End Date Franny Dolan PA-C [address] [place] [address] PCP - General PHYSICIAN EDITOR IN CHIEF 02/05/21 documented as of this encounter
--- OUTSIDE RECORDS SUMMARY | 2024-06-23 15:33 | XMS_ITS | Encounter Summary ---
Author Organization [facility] Address [address] [place] [address]. [place], [place] [address] [place] [address] Care Team Providers Care Broommaking Supervisor Name Role Phone Alex Browne MD [...] AM CDT Office Visit [facility] Family Medicine - [place] 100 [place] [address] Franny Dolan PA-C 100 [place] [address] documented as of this encounter Visit Diagnoses Not on filedocumented in this encounter Care Teams Broommaking Supervisor Relationship Specialty Start Date End Date Alex Browne MD PCP - General 08/29/14 02/04/21 documented as of this encounter
--- OUTSIDE RECORDS SUMMARY | 2024-06-23 15:33 | XMS_ITS | Encounter Summary ---
Author Organization [facility] Address [address] [place] [address]. [place], [place] [address] [place] [address] Care Team Providers Care Tax Clerk Name Role Phone Alex Browne MD [facility] Family [facility] - [place] 100 [place] [address] Franny Dolan PA-C 100 [place] [address] documented as of this encounter Visit Diagnoses Not on filedocumented in this encounter Care Teams Tax Clerk Relationship Specialty Start Date End Date Alex Borwne MD PCP - General 08/29/14 02/04/21 documented as of this encounter
--- OUTSIDE RECORDS SUMMARY | 2024-06-23 15:33 | XMS_ITS | Encounter Summary ---
Author Organization [facility] Address [address] [place] [address]. [place], [place] [address] [place] [address] Care Team Providers Care Petal Shaper Hand Name Role Phone Franny Dolan PA-C Primary Care Provider +1- [phone] Encounter Details Date Type Department Care Team [...] Coronavirus/COVID-19? No / Unsure 08/30/2021 9:31 AM SOCIAL SERVICE TECHNICIAN documented as of this encounter Plan of Treatment Upcoming Encounters Date Type Department Care Team (Late st Contact Info) Description 11/07/2024 9:40 AM CDT Office Visit [facility] Family Medicine - [place] [address] [place] [phone] Franny Dolan PA-C [address] [place] [address] documented as of this encounter Visit Diagnoses Not on filedocumented in this encounter Additional Health Concerns Assessment Noted Time PHQ-9 Depression Total Score: 0 05/12/20 21 9:32 AM SOCIAL SERVICE TECHNICIAN documented as of this encounter Care Teams Petal Shaper Hand Relationship Specialty Start Date End Date Franny Dolan PA-C [address] [place] [address] PCP - General PHYSICIAN NEGATIVE SPOTTER 02/05/21 documented as of this encounter
--- OUTSIDE RECORDS SUMMARY | 2024-06-23 15:33 | XMS_ITS | Encounter Summary ---
Author Organization [facility] Address [address] [place] [address]. [place], [place] [address] [place] [address] Care Team Providers Care Mold Cleaner Name Role Phone Alex Browne MD Primary Care Provider Unav pritiable Franny Dolan PA-C Primary Care Provider +1- [phone] Encounter Details Date Type Department Care Team (Late st Contact Info) Description 02/04/2021 Orders Only [address] [phone] Alex Browne MD Social History Tobacco Use [...] Description 11/07/2024 9:40 AM CDT Office Visit [address] [phone] Franny Dolan PA-C [address] [place] [address] documented as of this encounter Procedures Procedure Name Priority Date/Time Associated Diagnosis Comments HEMOGLOBIN, GLYCOSYLATED Routine 02/04/2021 9:39 AM CDT COMPREHENSIVE METABOLIC PANEL Routine 02/04/2021 9:39 AM CDT documented in this encounter Results * (ABNORMAL) HEMOGLOBIN, GLYCOSYLATED (02/04/2021 9:39 AM CDT) HGB A1C 6.8(H) <5.7 % of total Hgb [facility] 02/04/2021 9:39 AM CDT 02/04/2021 9:39 AM CDT Narrative [facility] - 02/05/2021 2:56 AM CDT FASTING:YES COLLECTION KIT GIVEN TO PATIENT. PATIENT ADVISED TO RETURN. FASTING: YES us Alex Browne MD LABORATORY Final Resul t [facility] [address] [place] [address] * (ABNORMAL) COMPREHENSIVE METABOLIC PANEL (02/04/2021 9:39 AM CDT) GLUCOSE 158(H) 65 - 99 mg/dL [facility] Comment: ? Fasting reference interval For someone without known diabetes, a glucose value >125 mg/dL indicates that they may have diabetes and this should be confirmed with a follow-up test. BUN 15 7 - 25 mg/dL [facility] CREATININE S/P/B 0.96 0.50 - 0.99 mg/dL [facility] Comment: For patients >49 years of age, the reference limit for Creatinine is approximately 13% higher for people identified as -Cymraes. EGFR NON-AFR. AMER. 62 > OR = 60 mL/min/1 .73m2 [facility] EGFR AFR. AMER. 72 > OR = 60 mL/min/1 .73m2 [facility] BUN CREATININE RATIO NOT APPLICABLE 6 - 22 (calc) [facility] SODIUM S/P/B 139 135 - 146 mmol/L [facility] POTASSIUM S/P/B 4.3 3.5 - 5.3 mmol/L [facility] CHLORIDE S/P/B 102 98 - 110 mmol/L [facility] CO2 23 20 - 32 mmol/L [facility] CALCIUM S/P/B 10.5(H) 8.6 - 10.4 mg/dL [facility] TOTAL PROTEIN S/P/B 6.6 6.1 - 8.1 g/dL [facility] ALBUMIN S/P/B 4.5 3.6 - 5.1 g/dL [facility] GLOBULIN 2.1 1.9 - 3.7 g/dL (calc) [facility] ALBUMIN/GLOBULIN RATIO 2.1 1.0 - 2.5 (calc) [facility] BILIRUBIN TOTAL S/P/B 0.6 0.2 - 1.2 mg/dL [facility] ALKALINE PHOSPHATASE S/P/B 100 37 - 153 U/L [facility] AST 44(H) 10 - 35 U/L [facility] ALT 55(H) 6 - 29 U/L [facility] 02/04/2021 9:39 AM CDT 02/04/2021 9:39 AM CDT Narrative [facility] - 02/05/2021 2:56 AM CDT FASTING:YES COLLECTION KIT GIVEN TO PATIENT. PATIENT ADVISED TO RETURN. FASTING: YES us Alex Browne MD LABORATORY Final Resul t [facility] [address] [place] [address] documented in this encounter Visit Diagnoses Not on filedocumented in this encounter Care Teams Mold Cleaner Relationship Specialty Start Date End Date Alex Browne MD PCP - General 08/29/14 02/04/21 Franny Dolan PA-C [address] [place] [address]. [place] [address] PCP - General PHYSICIAN WOUND CARE PHYSICIAN 02/05/21 documented as of this encounter
--- OUTSIDE RECORDS SUMMARY | 2024-06-23 15:33 | XMS_ITS | Encounter Summary ---
Author Organization [facility] Address [address] [place] [address]. [place] [address] [place] [address] Care Team Providers Care Sericulture Teacher Name Role Phone Alex Browne MD [...] Description 11/07/2024 9:40 AM CDT Office Visit [facility] Family Medicine - [place] 100 [place] [address] Franny Dolan PA-C 100 [place] [address] documented as of this encounter Procedures Procedure Name Priority Date/Time Associated Diagnosis Comments OUTSIDE LAB (SCAN ORDER) Routine 12/24/2020 documented in this encounter Results * OUTSIDE LAB (SCAN) (12/24/2020) HGB A1C 7.2 % [facility] 12/24/2020 us Documents Scanned SCANNING Final Result [facility] documented in this encounter Visit Diagnoses Not on filedocumented in this encounter Care Teams Sericulture Teacher Relationship Specialty Start Date End Date Alex Browne MD PCP - General 08/29/14 02/04/21 documented as of this encounter
--- OUTSIDE RECORDS SUMMARY | 2024-06-23 15:33 | XMS_ITS | Encounter Summary ---
Author Organization [facility] Address [address] [place] [address]. [place], [place] [address] [place] [address] Care Team Providers Care Narcotics And/Or Vice Detective Name Role Phone Alex Browne MD Primary [...] [facility] Family Medicine - [place] 100 [place] [address] Franny Dolan PA-C 100 [place] [address] documented as of this encounter Visit Diagnoses Not on filedocumented in this encounter Care Teams Narcotics And/Or Vice Detective Relationship Specialty Start Date End Date Alex Browne MD PCP - General 08/29/14 02/04/21 documented as of this encounter
--- OUTSIDE RECORDS SUMMARY | 2024-06-23 15:33 | XMS_ITS | Encounter Summary ---
Author Organization [facility] Address [address] [place] [address]. [place], [place] [address] [place] [address] Care Team Providers Care Qm Nurse Name Role Phone Franny Dolan PA-C Primary Care Provider +1- [phone] Encounter Details Date Type Department Care Team [...] [facility] Family Medicine - [place] [address] [place] [phone] Franny Dolan PA-C [address] [place] [address] documented as of this encounter Visit Diagnoses Not on filedocumented in this encounter Additional Health Concerns Assessment Noted Time PHQ-9 Depression Total Score: 13 021 11:45 AM CDT documented as of this encounter Care Teams Qm Nurse Relationship Specialty Start Date End Date Franny Dolan PA-C [address] [place] [address] PCP - General PHYSICIAN MED SPA MANAGER 02/05/21 documented as of this encounter
--- OUTSIDE RECORDS SUMMARY | 2024-06-23 15:33 | XMS_ITS | Encounter Summary ---
Author Organization [facility] Address [address] [place] [address]. [place] [address] [place] [address] Care Team Providers Care Aircraft Refueler Name Role Phone Kami Edmond PA-C Primary Care Provider +1- [phone] Reason for Visit * Reason Onset Date Comments Refill Request 10/01/2021 Encounter Details Date Type Department Care Team (Late st Contact Info) Description 10/01/2021 Telephone [facility] Family Medicine - [place] 100 [place] [phone] Kami Edmond PA-C 100 [place] [address] Refill Request Social History Tobacco [...] - 10/01/2021 10:35 AM CDT Call back [phone] Pt called and said that she [facility] in [address] She is needing a refill on medications busPIRone 7.5 MG tablet 90 days Last appt august 30 nxt appt 11/30/2021 at 9:20 AM documented in this encounter Plan of Treatment Upcoming Encounters Date Type Department Care Team (Late st Contact Info) Description 11/07/2024 9:40 AM CDT Office Visit [facility] Family Medicine - [address] [phone] Kami Edmond PA-C [address] [place] [address] documented as of this encounter Visit Diagnoses Diagnosis Anxiety Anxiety state, unspecified documented in this encounter Additional Health Concerns Assessment Noted Time PHQ-9 Depression Total Score: 0 05/12/20 21 9:32 AM OILER HELPER documented as of this encounter Care Teams Aircraft Refueler Relationship Specialty Start Date End Date Kami Edmond PA-C [address] [place] [address] PCP - General PHYSICIAN GATE ATTENDANT 02/05/21 documented as of this encounter
--- OUTSIDE RECORDS SUMMARY | 2024-06-23 15:33 | XMS_ITS | Encounter Summary ---
Author Organization [facility] Address [address] [place] [address]. [place], [place] [address] [place] [address] Care Team Providers Care Forest Ecology Professor Name Role Phone Alex Browne MD Primary [...] Description 11/07/2024 9:40 AM CDT Office Visit [facility] Family Medicine - [place] 100 [place] [address] Franny Dolan PA-C 100 [place] [address] documented as of this encounter Procedures Procedure Name Priority Date/Time Associated Diagnosis Comments IMAGE GENERIC 10/03/2020 documented in this encounter Results * IMAGE GENERIC (10/03/2020) Anatomical Region Laterality Modality Other 10/03/2020 Narrative 10/03/2020 Ordered by an unspecified provider. us Documents Scanned SCANNING Final Result documented in this encounter Visit Diagnoses Not on filedocumented in this encounter Care Teams Forest Ecology Professor Relationship Specialty Start Date End Date Alex Browne MD PCP - General 08/29/14 02/04/21 documented as of this encounter
--- OUTSIDE RECORDS SUMMARY | 2024-06-23 15:33 | XMS_ITS | Encounter Summary ---
Author Organization [facility] Address [address] [place] [address]. [place], [place] [address] [place] [address] Care Team Providers Care Travel Money Advisor Name Role Phone Franny Dolan PA-C Primary Care Provider +1- [phone] Encounter Details Date Type Department Care Team [...] [facility] Family Medicine - [place] [address] [place] [phone] Franny Dolan PA-C [address] [place] [address] documented as of this encounter Visit Diagnoses Not on filedocumented in this encounter Additional Health Concerns Assessment Noted Time PHQ-9 Depression Total Score: 13 021 11:45 AM CDT documented as of this encounter Care Teams Travel Money Advisor Relationship Specialty Start Date End Date Franny Dolan PA-C [address] [place] [address] PCP - General PHYSICIAN PER DIEM INTERPRETER 02/05/21 documented as of this encounter
--- OUTSIDE RECORDS SUMMARY | 2024-06-23 15:33 | XMS_ITS | Encounter Summary ---
Author Organization [facility] Address [address] [place] [address]. [place], [place] [address] [place] [address] Care Team Providers Care Engineer Fishing Vessel Name Role Phone Alex Browne MD Primary [facility] Family [facility] - [place] 100 [place] [address] Franny Dolan PA-C 100 [place] [address] documented as of this encounter Visit Diagnoses Not on filedocumented in this encounter Care Teams Engineer Fishing Vessel Relationship Specialty Start Date End Date Alex Browne MD PCP - General 08/29/14 02/04/21 documented as of this encounter
--- OUTSIDE RECORDS SUMMARY | 2024-06-23 15:33 | XMS_ITS | Encounter Summary ---
Author Organization [facility] Address [address] [place] [address]. [place] [address] [place] [address] Care Team Providers Care Motor Equipment Lieutenant Name Role Phone Alex Browne MD Primary Care Provider Franny Bellamy PA-C Primary Care Provider +1- [phone] Encounter Details Date Type Department Care Team (Late st Contact Info) Description 02/01/2021 Orders Only [facility] Family Medicine - [place] [phone] Adore Samayoa MA Social History Tobacco Use [...] and it looks like she goes to [facility] off of [address] * Adore Samayoa MA [...] [facility] Family Medicine - [address] [phone] Franny Dolan PA-C [address] [place] [address] documented as of this encounter Visit Diagnoses Diagnosis Anxiety- Primary Anxiety state, unspecified documented in this encounter Care Teams Motor Equipment Lieutenant Relationship Specialty Start Date End Date Alex Browne MD PCP - General 08/29/14 02/04/21 Franny Dolan PA-C [address] [place] [address] PCP - General PHYSICIAN WIRE FENCE ERECTOR 02/05/21 documented as of this encounter
--- OUTSIDE RECORDS SUMMARY | 2024-06-23 15:33 | XMS_ITS | Encounter Summary ---
Author Organization [facility] Address [address] [place] [address]. [place] [address] [place] [address] Care Team Providers Care Sourcing Specialist Name Role Phone lAex Browne MD Primary Care Provider Unav ailable [...] [facility] Family [facility] - [place] 100 [place] [address] Franny Dolan PA-C 100 [place] [address] documented as of this encounter Procedures Procedure Name Priority Date/Time Associated Diagnosis Comments OUTSIDE LAB (SCAN ORDER) Routine 09/12/2019 documented in this encounter Results * OUTSIDE LAB (SCAN) (09/12/2019) HGB A1C 9.3 % [facility] 09/12/2019 us Documents Scanned SCANNING Final Result [facility] documented in this encounter Visit Diagnoses Not on filedocumented in this encounter Care Teams Sourcing Specialist Relationship Specialty Start Date End Date Alex Browne MD PCP - General 08/29/14 02/04/21 documented as of this encounter
--- OUTSIDE RECORDS SUMMARY | 2024-06-23 15:33 | XMS_ITS | Encounter Summary ---
Author Organization [facility] Address [address] [place] [address]. [place], [place] [address] [place] [address] Care Team Providers Care Grain Broker And Market Operator Name Role Phone [place] Browne MD [...] [facility] Family Medicine - [place] 100 [place] [address] Franny Dolan PA-C 100 [place] [address] documented as of this encounter Procedures Procedure Name Priority Date/Time Associated Diagnosis Comments OUTSIDE LAB (SCAN ORDER) 05/26/2020 documented in this encounter Results * OUTSIDE LAB (SCAN) (05/26/2020) 05/26/2020 Narrative 05/26/2020 Ordered by an unspecified provider. us Documents Scanned SCANNING Final Result documented in this encounter Visit Diagnoses Not on filedocumented in this encounter Care Teams Grain Broker And Market Operator Relationship Specialty Start Date End Date Alex Browne MD PCP - General 08/29/14 02/04/21 documented as of this encounter
--- OUTSIDE RECORDS SUMMARY | 2024-06-23 15:33 | XMS_ITS | Encounter Summary ---
Author Organization [facility] Address [address] [place] [address]. [place], [place] [address] [place] [address] Care Team Providers Care Employee Relations Specialist Name Role Phone Franny Dolan PA-C Primary Care Provider +1- [phone] Encounter Details Date Type Department Care Team [...] Coronavirus/COVID-19? No / Unsure 08/30/2021 9:31 AM INGREDIENT SCALER HELPER documented as of this encounter Plan of Treatment Upcoming Encounters Date Type Department Care Team (Late st Contact Info) Description 11/07/2024 9:40 AM CDT Office Visit [facility] Family Medicine - [place] [address] [place] [phone] Franny Dolan PA-C [address] [place] [address] documented as of this encounter Visit Diagnoses Not on filedocumented in this encounter Additional Health Concerns Assessment Noted Time PHQ-9 Depression Total Score: 0 05/12/20 21 9:32 AM INGREDIENT SCALER HELPER documented as of this encounter Care Teams Employee Relations Specialist Relationship Specialty Start Date End Date Franny Dolan PA-C [address] [place] [phone] PCP - General PHYSICIAN 1ST GRADE TEACHER 02/05/21 documented as of this encounter
--- OUTSIDE RECORDS SUMMARY | 2024-06-23 15:33 | XMS_ITS | Encounter Summary ---
Author Organization [facility] Address [address] [place] [address]. [place], [place] [address] [place] [address] Care Team Providers Care Manager Career Name Role Phone [place] Browne MD Primary [...] [facility] Family Medicine - [place] 100 [place] [address] Franny Dolan PA-C 100 [place] [address] documented as of this encounter Visit Diagnoses Not on filedocumented in this encounter Care Teams Manager Career Relationship Specialty Start Date End Date [place] Browne MD PCP - General 08/29/14 02/04/21 documented as of this encounter
--- OUTSIDE RECORDS SUMMARY | 2024-06-23 15:33 | XMS_ITS | Encounter Summary ---
Author Organization [facility] Address [address] [place] [address]. [place] [address] [place] [address] Care Team Providers Care Benefit Director Name Role Phone Franny Dolan PA-C Primary Care Provider +1- [phone] Reason for Visit * Reason Onset Date Comments Other 05/31/2021 Encounter Details Date Type Department Care Team (Late st Contact Info) Description 05/31/2021 Telephone [facility] Medical [facility] Family Medicine - [place] 100 [place] [address] Franny Dolan PA-C [address] [place] [address] Other Social History Tobacco Use Types [...] COVID-19? No / Unsure 05/30/2021 2:23 PM SLIVER FORMER documented as of this encounter Progress Notes * Ann Armstrong MA - 05/31/2021 3:44 PM CST BHAVIN Todd said she sent all results to [facility] FOR[facility] * Ann Armstrong MA - 05/31/2021 3:38 PM CST Called the office back to clarify what exactly they need and spoke with Florecita. Florecita informed me that they need CBC, CMP, UA and EKG results ER FORMER * Janeth Solorzano - 05/31/2021 2:12 PM CST [facility] is asking for labs for surgical clearance Office [phone] Fax [phone] ER FORMER documented in this encounter Plan of Treatment Upcoming Encounters Date Type Department Care Team (Late st Contact Info) Description 11/07/2024 9:40 AM CDT Office Visit [facility] Medical [facility] Family Medicine - [place] [phone] Franny Dolan PA-C [address] [place] [address] documented as of this encounter Visit Diagnoses Not on filedocumented in this encounter Additional Health Concerns Infection Onset Date Last Indicated Resolved Time COVID-19 Rule Out 05/31/2021 05/31/2021 05/31/2021 11:28 AM SLIVER FORMER COVID-19 Rule Out 05/31/2021 05/31/2021 06/01/2021 11:59 PM SLIVER FORMER Assessment Noted Time PHQ-9 Depression Total Score: 0 05/12/20 9:32 AM SLIVER FORMER documented as of this encounter Care Teams Benefit Director Relationship Specialty Start Date End Date Franny Dolan PA-C [address] [place] [address] PCP - General PHYSICIAN HR SYSTEMS ANALYST 02/05/21 documented as of this encounter
--- OUTSIDE RECORDS SUMMARY | 2024-06-23 15:33 | XMS_ITS | Encounter Summary ---
Author Organization [facility] Address [address] [place] [address]. [place] [address] [place] [address] Care Team Providers Care Finance Vice President Name Role Phone Franny Dolan PA-C Primary Care Provider +1- [phone] Reason for Visit * Reason Onset Date Comments Medication Request 08/19/2021 Encounter Details Date Type Department Care Team (Late st Contact Info) Description 08/19/2021 Telephone [facility] Medical Group Family Medicine - [place] 100 [place] [address] Franny Dolan PA-C [address] [place] [address] Medication Request Social History Tobacco Use [...] Coronavirus / COVID-19? Yes 07/21/2021 8:50 AM SAW RUNNER documented as of this encounter Progress Notes [...] said that Dr. Pires answered the call RUNNER * Deb Tobin MA - 08/23/2021 8:29 AM CST I think so yes, I tried to call her but no answer RUNNER * Franny Dolan PA-C - 08/22/2021 6:21 PM CST Does she mean diflucan? This is for yeast infection, confirm that she needs medication for yeast infection. RUNNER * Deb Tobin MA - 08/19/2021 11:52 AM CST I don't see Diazepam on patient med list RUNNER * Marie Kwong - 08/19/2021 11:40 AM CST Pt is needing a prescription for diazepam, Pt usually gets yeast infections after antibiotics. Pt uses [facility] in [place], [place] Can be reached @ [phone] RUNNER documented in this encounter Plan of Treatment Upcoming Encounters Date Type Department Care Team (Late st Contact Info) Description 11/07/2024 9:40 AM CDT Office Visit [facility] Medical Group Family Medicine - [place] [phone] Franny Dolan PA-C 100 [place], [place] [phone] documented as of this encounter Visit Diagnoses Not on filedocumented in this encounter Additional Health Concerns Assessment Noted Time PHQ-9 Depression Total Score: 0 05/12/20 21 9:32 AM SAW RUNNER documented as of this encounter Care Teams Finance Vice President Relationship Specialty Start Date End Date Franny Dolan PA-C 100 [place] [address] PCP - General PHYSICIAN COMMAND POST SUPERINTENDENT 02/05/21 documented as of this encounter
--- OUTSIDE RECORDS SUMMARY | 2024-06-23 15:33 | XMS_ITS | Encounter Summary ---
Author Organization [facility] Address [address] [place] [address]. [place] [address] [place] [address] Care Team Providers Care Fixer Supervisor Name Role Phone Franny Dolan PA-C Primary Care Provider +1- [phone] Reason for Visit * Reason Onset Date Comments Surgery Questions 06/02/2021 Encounter Details Date Type Department Care Team (Late st Contact Info) Description 06/02/2021 Telephone [facility] Medical Group Family Medicine - [place] 100 [place] [address] Franny Dolan PA-C [address] [place] [address] Surgery Questions Social History Tobacco Use [...] COVID-19? No / Unsure 05/30/2021 2:23 PM BOILER TUBE BLOWER documented as of this encounter Progress Notes * Deb Tobin MA - 06/02/2021 12:17 PM CST Patient informed that her Covid test result faxed ER TUBE BLOWER * Anabel Rios - 06/02/2021 11:58 AM CST Needs to have results of Covid-19 test sent to [phone] Fax number to [facility] ER TUBE BLOWER documented in this encounter Plan of Treatment Upcoming Encounters Date Type Department Care Team (Late st Contact Info) Description 11/07/2024 9:40 AM CDT Office Visit [facility] Medical Group Family Medicine - [address] [address] Franny Dolan PA-C [address] [place] [address] documented as of this encounter Visit Diagnoses Not on filedocumented in this encounter Additional Health Concerns Assessment Noted Time PHQ-9 Depression Total Score: 0 05/12/20 9:32 AM BOILER TUBE BLOWER documented as of this encounter Care Teams Fixer Supervisor Relationship Specialty Start Date End Date Franny Dolan PA-C [address] [place] [address] PCP - General PHYSICIAN LEARNING SUPPORT TEACHER 02/05/21 documented as of this encounter
--- OUTSIDE RECORDS SUMMARY | 2024-06-23 15:33 | XMS_ITS | Encounter Summary ---
Author Organization [facility] Address [address] [place] [address]. [place] [address] [place] [address] Care Team Providers Care Smelter Operator Name Role Phone Kami Edmond PA-C Primary Care Provider +1- [phone] Reason for Referral * Imaging (Routine) - Closed Specialty Diagnoses / Procedures Referred By Contpascual t Referred To Contact RADIOLOGY Diagnoses Screening mammogram, encounter for Procedures MG SCREENING W JUAN WENDY DIGI Kami Edmond PA-C [address] [place] [address] Phone: tel: fax: [address] [place] [address] Phone: tel: fax: Referral ID Status Reason Start Date Expiration Date Visits Re quested Visits Authorized [id number] Closed 08/30/2021 09/30/2022 1 1 CIATE PROFESSOR OF MATHEMATICS Reason for Visit * Reason Comments Diabetes Patient here for fol low up diabetes. Encounter Details Date Type Department Care Team (Late st Contact Info) Description 08/30/2021 9:40 AM ASSOCIATE PROFESSOR OF MATHEMATICS Office Visit [facility] Medical Group Family [place] [phone] Kami Edmond PA-C [address] [place] [address] Diabetes (Patient here for follow up [...] Coronavirus/COVID-19? No / Unsure 08/30/2021 9:31 AM ASSOCIATE PROFESSOR OF MATHEMATICS documented as of this encounter Last Filed Vital Signs Vital Sign Reading Time Taken Comments Blood Pressure 136/84 08/30/2021 9:44 AM ASSOCIATE PROFESSOR OF MATHEMATICS Pulse 68 08/30/2021 9:44 AM ASSOCIATE PROFESSOR OF MATHEMATICS Temperature 36.3 ??C (97.3 ??F) 08/30/2021 9:44 AM CS T Respiratory Rate - - Oxygen Saturation 97% 08/30/2021 9:44 AM ASSOCIATE PROFESSOR OF MATHEMATICS Inhaled Oxygen Concentration - - Weight 121.1 kg (267 lb) 08/30/2021 9:44 AM ASSOCIATE PROFESSOR OF MATHEMATICS Height 162.6 cm (5' 4 ) 08/30/2021 9:44 AM ASSOCIATE PROFESSOR OF MATHEMATICS Body Mass Index 45.83 08/30/2021 9:44 AM ASSOCIATE PROFESSOR OF MATHEMATICS documented in this encounter Progress Notes * [...] for prophylactic vaccination against Streptococcus pneumoniae (pneumococcus) [52863] Pneumovax 23 (Pneumococcal) 3. Type 2 diabetes mellitus without complication, without long-term current use of insulin ([facility]) A1C (BACK OFFICE) COMPREHENSIVE METABOLIC PANEL HEMOGLOBIN, [...] MG SCREENING W JUAN WENDY DIGI ??? [40408] Pneumovax 23 (Pneumococcal) ??? nystatin powder Reviewed and updated this visit by provider: Tobacco Allergies Meds Problems Med Hx Surg Hx Fam Hx KAMI EDMOND PA-C Referring Provider: No ref. provider found PCP: KAMI EDMOND PA-C Cosigned by [place] Browne MD at 09/03/2021 5:33 PM ASSOCIATE PROFESSOR OF MATHEMATICS CIATE PROFESSOR OF MATHEMATICS CIATE PROFESSOR OF MATHEMATICS documented in this encounter Plan of Treatment Upcoming Encounters Date Type Department Care Team (Late st Contact Info) Description 11/07/2024 9:40 AM CDT Office Visit [facility] Medical Group Family [place] [phone] Kami Edmond PA-C [address] [place] [address] Scheduled Orders Name Type Priority Associated Diagnoses Orde r Schedule MG SCREENING W JUAN WENDY DIGI MAMMO Routine Screening mammogram, encounter for Ordered: 08/30/2021 documented as of this encounter Procedures Procedure Name Priority Date/Time Associated Diagnosis Comments HEMOGLOBIN, GLYCOSYLATED Routine 11/24/2021 7:09 AM CDT Type 2 diabetes mellitus without complication, without long-term current use of insulin ([facility]) COMPREHENSIVE METABOLIC PANEL Routine 11/24/2021 7:09 AM CDT Type 2 diabetes mellitus without complication, without long-term current use of insulin ([facility]) Essential hypertension LIPID PANEL Routine 11/24/2021 7:09 AM CDT Mixed hyperlipidemia THYROXINE, FREE (FT4) Routine 11/24/2021 7:09 AM CDT Hypothyroidism, unspecified type THYROID STIM HORMONE TSH Routine 11/24/2021 7:09 AM CDT Hypothyroidism, unspecified type HEMOGLOBIN, GLYCOSYLATED Today 08/30/2021 Type 2 diabetes mellitus without complication, without long-term current use of insulin ([facility]) documented in this encounter Results [...] lt [facility] [address] [place] [address] * THYROID STIM HORMONE, TSH (11/24/2021 7:09 AM CDT) TSH 3.26 0.40 - 4.50 mIU/L [facility] 11/24/2021 7:09 AM CDT 11/24/2021 7:10 AM CDT Kami Edmond PA-C LABORATORY Final Resu lt Performing Organization Address [facility] Co de Phone Number [facility] [address] [place] [address] * THYROXINE, FREE (FT4) (11/24/2021 7:09 AM CDT) FREE T4 1.1 0.8 - 1.8 ng/dL [facility] 11/24/2021 7:09 AM CDT 11/24/2021 7:10 AM CDT Kami Edmond PA-C LABORATORY Final Resu lt Performing Organization Address [facility] Co de Phone Number [facility] [address] [place] [address] * LIPID PANEL (11/24/2021 7:09 AM CDT) CHOLESTEROL 133 <200 mg/dL [facility] HDL 62 > OR = 50 mg/dL [facility] TRIGLYCERIDES 142 <150 mg/dL [facility] LDL (CALCULATED) 48 mg/dL (calc) [facility] Comment: Reference range: <100 Desirable range <100 mg/dL for primary prevention; ?? <70 mg/dL for patients with CHD or diabetic patients with > or = 2 CHD risk factors. LDL-C is now calculated using the Prakash calculation, which is a validated novel method providing better accuracy than the Friedewald equation in the estimation of LDL-C. Trino SS et al. CELSA. 2013;310(29): 0649-1745 (http://education.Valneva/faq/APD898) CHOL/HDL RATIO 2.1 <5.0 (calc) [facility] NON HDL CHOLESTEROL 71 <130 mg/dL (calc) [facility] Comment: For patients with diabetes plus 1 major ASCVD risk factor, treating to a non-HDL-C goal of <100 mg/dL (LDL-C of <70 mg/dL) is considered a therapeutic option. 11/24/2021 7:09 AM CDT 11/24/2021 7:10 AM CDT us Kami Edmond PA-C LABORATORY Final Resu lt [facility] [address] [place] [address] * (ABNORMAL) COMPREHENSIVE METABOLIC PANEL (11/24/2021 7:09 AM CDT) Pathologist [facility] GLUCOSE 157(H) 65 - 99 mg/dL [facility] Comment: ? Fasting reference interval For someone without known diabetes, a glucose value >125 mg/dL indicates that they may have diabetes and this should be confirmed with a follow-up test. BUN 12 7 - 25 mg/dL [facility] CREATININE S/P/B 0.82 0.50 - 0.99 mg/dL [facility] Comment: For patients >49 years of age, the reference limit for Creatinine is approximately 13% higher for people identified as -[place]. EGFR NON-AFR. AMER. 75 > OR = 60 mL/min/1 .73m2 [facility] EGFR AFR. AMER. 87 > OR = 60 mL/min/1 .73m2 [facility] BUN CREATININE RATIO NOT APPLICABLE 6 - 22 (calc) [facility] SODIUM S/P/B 136 135 - 146 mmol/L [facility] POTASSIUM S/P/B 4.5 3.5 - 5.3 mmol/L [facility] CHLORIDE S/P/B 98 98 - 110 mmol/L [facility] CO2 26 20 - 32 mmol/L [facility] CALCIUM S/P/B 10.2 8.6 - 10.4 mg/dL [facility] TOTAL PROTEIN S/P/B 7.3 6.1 - 8.1 g/dL [facility] ALBUMIN S/P/B 4.3 3.6 - 5.1 g/dL [facility] GLOBULIN 3.0 1.9 - 3.7 g/dL (calc) [facility] ALBUMIN/GLOBULIN RATIO 1.4 1.0 - 2.5 (calc) [facility] BILIRUBIN TOTAL S/P/B 0.7 0.2 - 1.2 mg/dL [facility] ALKALINE PHOSPHATASE S/P/B 138 37 - 153 U/L [facility] AST 30 10 - 35 U/L [facility] ALT 32(H) 6 - 29 U/L [facility] 11/24/2021 7:09 AM CDT 11/24/2021 7:10 AM CDT us Kami Edmond PA-C LABORATORY Final Resu lt [facility] [address] [address] [place] [address] * A1C (BACK OFFICE) (08/30/2021) HGB A1C 7.4 % MG-[address] 08/30/2021 us Kami Edmond PA-C LABORATORY Final Resu lt -[facility] 100 [place] [address], documented in this encounter Visit Diagnoses Diagnosis Screening mammogram, encounter for- Primary Need for prophylactic vaccination against Streptococcus pneumoniae (pneumococcus) Need for prophylactic vaccination against streptococcus pneumoniae (pneumococcus) Type 2 diabetes mellitus without complication, without long-term current use of insulin ([facility]) Essential hypertension Unspecified essential hypertension NIRANJAN (obstructive sleep apnea) Obstructive sleep apnea (adult) (pediatric) Yeast infection of the skin Candidiasis of skin and nails Mixed hyperlipidemia Hypothyroidism, unspecified type documented in this encounter Additional Health Concerns Assessment Noted Time PHQ-9 Depression Total Score: 0 05/12/20 21 9:32 AM ASSOCIATE PROFESSOR OF MATHEMATICS documented as of this encounter Care Teams Smelter Operator Relationship Specialty Start Date End Date Kami Edmond PA-C [address] [place] [address]. [place] [address] PCP - General PHYSICIAN BINDER CASER 02/05/21 documented as of this encounter
--- OUTSIDE RECORDS SUMMARY | 2024-06-23 15:33 | XMS_ITS | Encounter Summary ---
Author Organization [facility] Address [address] [place] [address]. [place], [place] [address] [place] [address] Care Team Providers Care Supervisor Typesetting Name Role Phone [place] Browne MD Primary [...] [facility] Medical [facility] Family Medicine - [place] 100 [place] [address] Franny Dolan PA-C 100 [place] [address] documented as of this encounter Procedures Procedure Name Priority Date/Time Associated Diagnosis Comments OUTSIDE LAB (SCAN ORDER) 08/27/2019 documented in this encounter Results * OUTSIDE LAB (SCAN) (08/27/2019) 08/27/2019 Narrative 08/27/2019 Ordered by an unspecified provider. us Documents Scanned SCANNING Final Result documented in this encounter Visit Diagnoses Not on filedocumented in this encounter Care Teams Supervisor Typesetting Relationship Specialty Start Date End Date [place] Browne MD PCP - General 08/29/14 02/04/21 documented as of this encounter
--- OUTSIDE RECORDS SUMMARY | 2024-06-23 15:33 | XMS_ITS | Encounter Summary ---
Author Organization [facility] Address [address] [place] [address]. [place], [place] [address] [place] [address] Care Team Providers Care Color Maker Dyer Name Role Phone [place] Browne MD Primary [...] [facility] - [place] 100 [place] [address] Franny Dolan PA-C 100 [place] [address] documented as of this encounter Visit Diagnoses Not on filedocumented in this encounter Care Teams Color Maker Dyer Relationship Specialty Start Date End Date [place] Browne MD PCP - General 08/29/14 02/04/21 documented as of this encounter
--- OUTSIDE RECORDS SUMMARY | 2024-06-23 15:33 | XMS_ITS | Encounter Summary ---
Author Organization [facility] Address [address] [place] [address]. [place] [address] [place] [address] Care Team Providers Care Marine Rigger Name Role Phone Franny Dolan PA-C Primary Care Provider +1- [phone] Encounter Details Date Type Department Care Team (Late st Contact Info) Description 08/23/2021 Orders Only [facility] [place] [phone] Alexx Pires II, MD 100 [place] [address] Social History Tobacco Use Types [...] Description 11/07/2024 9:40 AM CDT Office Visit [facility] 100 [place] [phone] Franny Dolan PA-C 100 [place] [address] documented as of this encounter Visit Diagnoses Diagnosis Candidiasis of female genitalia- Primary Candidiasis of vulva and vagina documented in this encounter Additional Health Concerns Assessment Noted Time PHQ-9 Depression Total Score: 0 05/12/20 9:32 AM CONVERTING TECHNICIAN documented as of this encounter Care Teams Marine Rigger Relationship Specialty Start Date End Date Franny Dolan PA-C 100 [place] [address] PCP - General PHYSICIAN LEADITE WORKER 02/05/21 documented as of this encounter
--- OUTSIDE RECORDS SUMMARY | 2024-06-23 15:33 | XMS_ITS | Encounter Summary ---
Author Organization [facility] Address [address] [place] [address]. [place] [address] [place] [address] Care Team Providers Care Adjunct Art History Instructor Name Role Phone [place] Browne MD Primary [...] Description 11/07/2024 9:40 AM CDT Office Visit [facility] Medical Group Family Medicine - [place] 100 [place] [address] Franny Dolan PA-C 100 [place] [address] documented as of this encounter Procedures Procedure Name Priority Date/Time Associated Diagnosis Comments OUTSIDE LAB (SCAN ORDER) Routine 03/31/2020 documented in this encounter Results * OUTSIDE LAB (SCAN) (03/31/2020) HGB A1C 6.1 % [facility] 03/31/2020 us Documents Scanned SCANNING Final Result [facility] documented in this encounter Visit Diagnoses Not on filedocumented in this encounter Care Teams Adjunct Art History Instructor Relationship Specialty Start Date End Date [place] Browne MD PCP - General 08/29/14 02/04/21 documented as of this encounter
--- OUTSIDE RECORDS SUMMARY | 2024-06-23 15:33 | XMS_ITS | Encounter Summary ---
Author Organization [facility] Address [address] [place] [address]. [place] [address] [place] [address] Care Team Providers Care Arts Administrator Or Manager Name Role Phone Kami Edmond PA-C Primary Care Provider +1- [phone] Reason for Visit * Reason Comments Follow Up - Diabetes with labs COVID-19 Need test due to Marifer deangelo Encounter Details Date Type Department Care Team (Late st Contact Info) Description 05/31/2021 10:20 AM MANAGER OF SALES Office Visit [facility] Family Medicine - [place] [address] Kami Edmond PA-C [address] [place] [phone] Follow Up - Diabetes (with labs); COVID-19 [...] COVID-19? No / Unsure 05/30/2021 2:23 PM MANAGER OF SALES documented as of this encounter Last Filed Vital Signs Vital Sign Reading Time Taken Comments Blood Pressure 134/76 05/31/2021 10:51 AM MANAGER OF SALES Pulse 56 05/31/2021 10:51 AM MANAGER OF SALES Temperature 36.6 ??C (97.9 ??F) 05/31/2021 1 0:51 AM MANAGER OF SALES Respiratory Rate 18 05/31/2021 10:5 1 AM MANAGER OF SALES Oxygen Saturation 98% 05/31/2021 10: 51 AM MANAGER OF SALES Inhaled Oxygen Concentration - - Weight 125.7 kg (277 lb 3.2 oz) 021 10:51 AM MANAGER OF SALES Height - - Body Mass Index 47.58 05/12/2021 9:32 AM MANAGER OF SALES documented in this encounter Progress Notes * [...] CORONAVIRUS (COVID-19) ANTIGEN CORONAVIRUS (COVID 19) PCR ([facility]) 2. Essential hypertension 3. Hypothyroidism, unspecified type 4. Type 2 diabetes mellitus without complication, without long-term current use of insulin ([facility]) 5. Polycythemia 6. Mixed hyperlipidemia 7. Moderate episode of recurrent major depressive disorder ([facility]) 8. Anxiety Recommendations and Plan: Discuss labs [...] CORONAVIRUS (COVID-19) ANTIGEN CORONAVIRUS (COVID 19) PCR ([facility]) Reviewed and updated this visit by provider: Tobacco Allergies Meds Problems Med Hx Surg Hx Fam Hx KAMI EDMOND PA-C Referring Provider: No ref. provider found PCP: KAMI EDMOND PA-C Cosigned by Alex Browne MD at 06/11/2021 8:26 AM MANAGER OF SALES GER OF SALES GER OF SALES GER OF SALES documented in this encounter Plan of Treatment Upcoming Encounters Date Type Department Care Team (Late st Contact Info) Description 11/07/2024 9:40 AM CDT Office Visit [facility] Family Medicine [address] [phone] Kami Edmond PA-C [address] [place] [address] documented as of this encounter Procedures Procedure Name Priority Date/Time Associated Diagnosis Comments CORONAVIRUS (COVID 19) PCR Routine 05/31/2021 11:17 AM MANAGER OF SALES Pre-operative clearance CORONAVIRUS (COVID-19) ANTIGEN Today 05/31/2021 Pre-operative clearance documented in this encounter Results * CORONAVIRUS (COVID 19) PCR ([facility]) (05/31/2021 11:17 AM MANAGER OF SALES) SPEC DESCRIPTION NASAL 05/31/20 11:17 AM MANAGER OF SALES [facility] CORONAVIRUS SARS COV 2 PCR (RESP) NEGATIVE NEGATIVE 06/01/2021 11:59 PM MANAGER OF SALES [facility] Comment: THE SARS-CoV-2 TEST HAS BEEN AUTHORIZED BY THE FDA UNDER AN EUA FOR USE BY AUTHORIZED LABORATORIES. PERFORMED BY NUCLEIC ACID AMPLIFICATION PCR FIRST TEST UNKNOWN 05/31/2021 11:17 AM [facility] EMPLOYED IN HEALTHCARE NO 05/31/2021 11:17 AM [facility] SYMPTOMATIC DEFINED BY CDC NO 05/31/2021 11:17 AM [facility] HOSPITALIZATION STATUS NO 05/31/2021 11:17 AM MANAGER OF SALES [facility] PATIENT IN ICU NO 05/31/2021 11:17 AM MANAGER OF SALES [facility] RESIDENT OF [facility] NO 05/31/2021 11:17 AM MANAGER OF SALES [facility] NASOPHARYNGEAL SWAB / Unknown 05/31/2021 11:17 AM MANAGER OF SALES Kami Edmond PA-C MICROBIOLOGY - GENERAL ORD ERABLES Final Result [facility] [address] [place] [address], [place] [phone] * CORONAVIRUS (COVID-19) ANTIGEN (05/31/2021) CORONAVIRUS ANTIGEN IA NEGATIVE NEGATIVE [facility],[place] Internal Control: VALID VALID [facility],[place] Specimen from nose (specimen) NASAL STRUCTURE / Unknown 05/31/2021 Kami Edmond PA-C MICROBIOLOGY - GENERAL ORD ERABLES Final Result [facility],[place] [address] [place] [address], [place] [phone] documented in this encounter Visit Diagnoses Diagnosis Pre-operative clearance- Primary Preoperative examination, unspecified Essential hypertension Unspecified essential hypertension Hypothyroidism, unspecified type Type 2 diabetes mellitus without complication, without long-term current use of insulin ([facility]) Polycythemia Polycythemia vera Mixed hyperlipidemia Moderate episode of recurrent major depressive disorder ([facility]) Anxiety Anxiety state, unspecified documented in this encounter Additional Health Concerns Infection Onset Date Last Indicated Resolved Time COVID-19 Rule Out 05/31/2021 05/31/2021 05/31/2021 11:28 AM MANAGER OF SALES Assessment Noted Time PHQ-9 Depression Total Score: 0 05/12/20 9:32 AM MANAGER OF SALES documented as of this encounter Care Teams Arts Administrator Or Manager Relationship Specialty Start Date End Date Kami Edmond PA-C [address] [place] [address] PCP - General PHYSICIAN WELDER EXPLOSION 02/05/21 documented as of this encounter
--- OUTSIDE RECORDS SUMMARY | 2024-06-23 15:33 | XMS_ITS | Encounter Summary ---
Author Organization [facility] Address [address] [place] [address] [address] [place] [address] Care Team Providers Care Field Inspector Name Role Phone Kami Edmond PA-C Primary Care Provider +1- [phone] Reason for Visit * Reason Comments Pre-Op Exam cervical spine surge ry on June 03 Encounter Details Date Type Department Care Team (Late st Contact Info) Description 05/12/2021 9:20 AM UPSETTER SETTER UP Office Visit [facility] Family Medicine - [place] [phone] Kami Edmond PA-C [address] [place] [address] Pre-Op Exam (cervical spine surgery on June [...] COVID-19? No / Unsure 05/12/2021 9:12 AM UPSETTER SETTER UP documented as of this encounter Last Filed Vital Signs Vital Sign Reading Time Taken Comments Blood Pressure 132/86 05/12/2021 9:32 AM UPSETTER SETTER UP Pulse 57 05/12/2021 9:32 AM UPSETTER SETTER UP Temperature 36.2 ??C (97.1 ??F) 05/12/2021 9:32 AM CS T Respiratory Rate 20 05/12/2021 9:32 AM UPSETTER SETTER UP Oxygen Saturation 97% 05/12/2021 9:32 AM UPSETTER SETTER UP Inhaled Oxygen Concentration - - Weight 124.7 kg (275 lb) 05/12/2021 9:32 AM UPSETTER SETTER UP Height 162.6 cm (5' 4 ) 05/12/2021 9:32 AM UPSETTER SETTER UP Body Mass Index 47.2 05/12/2021 9:32 AM UPSETTER SETTER UP documented in this encounter Progress Notes * Kami Edmond PA-C - 05/12/2021 9:20 AM CST Reason for Visit: Pre-Op Exam (cervical spine surgery on June 03) History of Present Illness: Patient here for preop clearance for ACDF C4-7 at [facility] with Dr. Hunter on June 03, 2021. [...] ref. provider found PCP: KAMI EDMOND PA-C TTER SETTER UP documented in this encounter Plan of Treatment Upcoming Encounters Date Type Department Care Team (Late st Contact Info) Description 11/07/2024 9:40 AM CDT Office Visit [facility] Family Medicine - [address] [phone] Kami Edmond PA-C [address] [place] [address] [phone] Scheduled Orders Name Type Priority Associated Diagnoses Orde r Schedule ECG 12 lead (Hosp Performed) EKG-NonRad Routine Preop examination Expected: 05/12/2021, Expires: 05/12/2022 documented as of this encounter Procedures Procedure Name Priority Date/Time Associated Diagnosis Comments URINALYSIS Routine 05/13/2021 12:32 PM UPSETTER SETTER UP Preop examination CBC W/DIFF AUTOMATED Routine 05/13/2021 12:32 PM UPSETTER SETTER UP documented in this encounter Results * (ABNORMAL) CBC W/DIFF AUTOMATED (05/13/2021 12:32 PM UPSETTER SETTER UP) WBC 5.9 3.8 - 10.8 Thousand/u L [...] [facility] 05/13/2021 12:3 2 PM UPSETTER SETTER UP 05/13/2021 12:33 PM UPSETTER SETTER UP us Kami Edmond PA-C LABORATORY Final Resu lt [facility] [address] [place] [address] * URINALYSIS (05/13/2021 12:32 PM UPSETTER SETTER UP) COLOR (U) YELLOW YELLOW [facility] [...] CATCH PROCEDURE / Unknown 05/13/2021 12:32 PM UPSETTER SETTER UP 05/13/2021 12:33 PM UPSETTER SETTER UP us Kami Edmond PA-C URINE ORDERABLES Final Res ult [facility] [address] [address] [address] documented in this encounter Visit Diagnoses Diagnosis Hypothyroidism, unspecified type- Primary Mixed hyperlipidemia Preop examination Preoperative examination, unspecified documented in this encounter Additional Health Concerns Assessment Noted Time PHQ-9 Depression Total Score: 0 05/12/20 21 9:32 AM UPSETTER SETTER UP documented as of this encounter Care Teams Field Inspector Relationship Specialty Start Date End Date Kami Edmond PA-C [address] [place] [phone] PCP - General PHYSICIAN VICE PRESIDENT FIXED INCOME 02/05/21 documented as of this encounter
--- OUTSIDE RECORDS SUMMARY | 2024-06-23 15:33 | XMS_ITS | Encounter Summary ---
Author Organization [facility] Address [address] [place] [address]. [place] [address] [place] [address] Care Team Providers Care Assistant Professor Of Business Name Role Phone Kami Edmond PA-C Primary Care Provider +1- [phone] Reason for Visit * Reason Comments Skin Problem skin breaking out rhea th under arms, numbness both hands Encounter Details Date Type Department Care Team (Late st Contact Info) Description 03/22/2021 11:00 AM CDT Office Visit [facility] Family Medicine - [place] [phone] Kami Edmond PA-C [address] [place] [phone] Skin Problem (skin breaking out both under [...] Patient here for follow up ER at [facility]. She felt weak and shaky the day [...] Gatherings with Friends and Family: ??? Attends Rastafari Services: ??? Active Member of Clubs or [...] MEDICAL FACILITY Medical Group Family Medicine - [address] [phone] Kami Edmond PA-C [address] [place] [address] documented as of this encounter Visit Diagnoses Diagnosis Yeast infection of the skin- Primary Candidiasis of skin and nails Yeast infection of the vagina Candidiasis of vulva and vagina documented in this encounter Additional Health Concerns Assessment Noted Time PHQ-9 Depression Total Score: 13 021 11:45 AM CDT documented as of this encounter Care Teams Assistant Professor Of Business Relationship Specialty Start Date End Date Kami Edmond PA-C [address] [place] [address] PCP - General PHYSICIAN WEEDER THINNER 02/05/21 documented as of this encounter
--- OUTSIDE RECORDS SUMMARY | 2024-06-23 15:33 | XMS_ITS | Encounter Summary ---
Author Organization [facility] Address [address] [place] [address]. [place] [address] [place] [address] Care Team Providers Care Implementation Manager Name Role Phone Franny Dolan PA-C Primary Care Provider +1- [phone] Encounter Details Date Type Department Care Team [...] COVID-19? No / Unsure 05/30/2021 2:23 PM LINE TESTER documented as of this encounter Plan of Treatment Upcoming Encounters Date Type Department Care Team (Late st Contact Info) Description 11/07/2024 9:40 AM CDT Office Visit [facility] Family Medicine - [place] [address] [place] [phone] Franny Dolan PA-C [address] [place] [address] documented as of this encounter Visit Diagnoses Not on filedocumented in this encounter Additional Health Concerns Assessment Noted Time PHQ-9 Depression Total Score: 0 05/12/20 21 9:32 AM LINE TESTER documented as of this encounter Care Teams Implementation Manager Relationship Specialty Start Date End Date Franny Dolan PA-C [address] [place] [address] PCP - General PHYSICIAN FILE KEEPER 02/05/21 documented as of this encounter
--- OUTSIDE RECORDS SUMMARY | 2024-06-23 15:33 | XMS_ITS | Encounter Summary ---
Author Organization [facility] Address [facility] [place] [place] [address] [place] [address] Care Team Providers Care Internet Programmer Name Role Phone Kami Edmond PA-C Primary Care Provider +1- [phone] Reason for Visit * Reason Comments URI Symptoms, diahrrea, chills, fever, sleeping a lot, sinus pain in ear and forehead. has symptom on Encounter Details Date Type Department Care Team (Late st Contact Info) Description 07/21/2021 10:00 AM PROGRAMMING INSTRUCTOR Telemedicine [facility] Family Medicine - [place] [address] [place] [address] Kami Edmond PA-C [address] [place] [address] URI (Symptoms, diahrrea, chills, fever, sleeping a [...] Coronavirus / COVID-19? Yes 07/21/2021 8:50 AM PROGRAMMING INSTRUCTOR documented as of this encounter Progress Notes [...] Recommendations and Plan: She should go to [facility] for COVID test, but she needs to [...] ref. provider found PCP: KAMI EDMOND PA-C RAMMING INSTRUCTOR documented in this encounter Plan of Treatment Upcoming Encounters Date Type Department Care Team (Late st Contact Info) Description 11/07/2024 9:40 AM CDT Office Visit [facility] Family Medicine - [place] [address] [place] [address] Kami Edmond PA-C [address] [place] [address] documented as of this encounter Visit Diagnoses Diagnosis Cough- Primary Acute non-recurrent sinusitis, unspecified location Otalgia of both ears Otalgia, unspecified documented in this encounter Additional Health Concerns Assessment Noted Time PHQ-9 Depression Total Score: 0 05/12/20 21 9:32 AM PROGRAMMING INSTRUCTOR documented as of this encounter Care Teams Internet Programmer Relationship Specialty Start Date End Date Kami Edmond PA-C [address] [place] [phone] PCP - General PHYSICIAN PETROLEUM ANALYST 02/05/21 documented as of this encounter
--- OUTSIDE RECORDS SUMMARY | 2024-06-23 15:33 | XMS_ITS | Encounter Summary ---
Author Organization [facility] Address [address] [place] [address]. [place] [address] [place] [address] Care Team Providers Care In Home Baby Sitter Name Role Phone Franny Dolan PA-C Primary Care Provider +1- [phone] Encounter Details Date Type Department Care Team [...] Coronavirus / COVID-19? Yes 07/21/2021 8:50 AM MACHINE FEED OPERATOR documented as of this encounter Plan of Treatment Upcoming Encounters Date Type Department Care Team (Late st Contact Info) Description 11/07/2024 9:40 AM CDT Office Visit [facility] Family Medicine - [place] [address] [place] [phone] Franny Dolan PA-C [address] [place] [address] documented as of this encounter Visit Diagnoses Not on filedocumented in this encounter Additional Health Concerns Assessment Noted Time PHQ-9 Depression Total Score: 0 05/12/20 21 9:32 AM MACHINE FEED OPERATOR documented as of this encounter Care Teams In Home Baby Sitter Relationship Specialty Start Date End Date Franny Dolan PA-C [address] [place] [address] PCP - General PHYSICIAN MEAT LUGGER 02/05/21 documented as of this encounter
--- OUTSIDE RECORDS SUMMARY | 2024-06-23 15:33 | XMS_ITS | Encounter Summary ---
Author Organization [facility] Address [address] [place] [address]. [place] [address] [place] [address] Care Team Providers Care Imagery Intelligence Name Role Phone Alex Browne MD Primary [...] Office Visit [facility] Family Medicine - [place] [address] [place] [address] Franny Dolan PA-C 100 [place] [address] documented as of this encounter Procedures Procedure Name Priority Date/Time Associated Diagnosis Comments OUTSIDE LAB COVID-19 (SCAN ORDER) Routine 2020 documented in this encounter Results * OUTSIDE LAB COVID-19 (SCAN) (2020) CORONAVIRUS SARS COV 2 PCR (RESP) NOT DETECTED NOT DETECTED [facility] ONBASE 2020 us Documents Scanned SCANNING Final Result [facility] ON[facility] documented in this encounter Visit Diagnoses Not on filedocumented in this encounter Care Teams Imagery Intelligence Relationship Specialty Start Date End Date Alex Browne MD PCP - General 08/29/14 02/04/21 documented as of this encounter
--- OUTSIDE RECORDS SUMMARY | 2024-06-23 15:33 | XMS_ITS | Encounter Summary ---
Author Organization [facility] Address [address] [place] [address]. [place], [place] [address] [place] [address] Care Team Providers Care Tent Assembler Name Role Phone Alex Browne MD [...] [facility] Family Medicine - [place] [address] [place] [phone] Franny Dolan PA-C 100 [place] [address] documented as of this encounter Visit Diagnoses Not on filedocumented in this encounter Care Teams Tent Assembler Relationship Specialty Start Date End Date Alex Browne MD PCP - General 08/29/14 02/04/21 documented as of this encounter
--- OUTSIDE RECORDS SUMMARY | 2024-06-23 15:33 | XMS_ITS | Encounter Summary ---
Author Organization [facility] Address [address] [place] [address]. [place], [place] [address] [place] [address] Care Team Providers Care Visitor Information Assistant Name Role Phone Alex Browne MD [...] [facility] Family Medicine - [place] [address] [place] [address] Franny Dolan PA-C 100 [place] [address] documented as of this encounter Visit Diagnoses Not on filedocumented in this encounter Care Teams Visitor Information Assistant Relationship Specialty Start Date End Date Alex Browne MD PCP - General 08/29/14 02/04/21 documented as of this encounter
--- OUTSIDE RECORDS SUMMARY | 2024-06-23 15:33 | XMS_ITS | Encounter Summary ---
Author Organization [facility] Address [address] [place] [address]. [place], [place] [address] [place] [address] Care Team Providers Care Medical Esthetician Name Role Phone Franny Dolan PA-C Primary Care Provider +1- [phone] Encounter Details Date Type Department Care Team [...] COVID-19? No / Unsure 05/12/2021 9:12 AM DISPATCH SUPERVISOR documented as of this encounter Plan of Treatment Upcoming Encounters Date Type Department Care Team (Late st Contact Info) Description 11/07/2024 9:40 AM CDT Office Visit [facility] Family Medicine - [place] [address] [place] [phone] Franny Dolan PA-C [address] [place] [address] documented as of this encounter Visit Diagnoses Not on filedocumented in this encounter Additional Health Concerns Assessment Noted Time PHQ-9 Depression Total Score: 0 05/12/20 21 9:32 AM DISPATCH SUPERVISOR documented as of this encounter Care Teams Medical Esthetician Relationship Specialty Start Date End Date Franny Dolan PA-C [address] [place] [address] PCP - General PHYSICIAN PATTERN CHECKER 02/05/21 documented as of this encounter
--- OUTSIDE RECORDS SUMMARY | 2024-06-23 15:33 | XMS_ITS | Encounter Summary ---
Author Organization [facility] Address [address] [place] [address]. [place] [address] [place] [address] Care Team Providers Care Medical Front Desk Coordinator Name Role Phone Alex Browne MD [...] [facility] Family [facility] - [place] [address] [place] [address] Franny Dolan PA-C 100 [place] [address] documented as of this encounter Procedures Procedure [...] filedocumented in this encounter Care Teams Medical Front Desk Coordinator Relationship Specialty Start Date End Date Alex Browne MD PCP - General 08/29/14 02/04/21 documented as of this encounter
--- OUTSIDE RECORDS SUMMARY | 2024-06-23 15:33 | XMS_ITS | Encounter Summary ---
Author Organization [facility] Address [address] [place] [address]. [place] [address] [place] [address] Care Team Providers Care Refrigeration Operator Name Role Phone Kami Edmond PA-C Primary Care Provider [phone]- [phone] Reason for Visit * Reason Comments Anxiety 4 mon follow with la bs Encounter Details Date Type Department Care Team (Late st Contact Info) Description 02/09/2021 10:50 AM CDT Office Visit [facility] [place] [phone] Kami Edmond PA-C [address] [place] [address] Anxiety (4 mon follow with labs) [...] Gatherings with Friends and Family: ??? Attends Nondenominational Services: ??? Active Member of Clubs or [...] [facility] [place] [phone] Kami Edmond PA-C [address] [place] [address] documented as of this encounter Procedures Procedure Name Priority Date/Time Associated Diagnosis Comments ALBUMIN URINE RANDOM W/CREATININE Routine 05/05/2021 12:08 PM SAW MAN Type 2 diabetes mellitus without complication, without long-term current use of insulin ([facility]) HEMOGLOBIN, GLYCOSYLATED Routine 05/05/2021 8:19 AM SAW MAN Type 2 diabetes mellitus without complication, without long-term current use of insulin ([facility]) COMPREHENSIVE METABOLIC PANEL Routine 05/05/2021 8:19 AM SAW MAN Type 2 diabetes mellitus without complication, without long-term current use of insulin ([facility]) LIPID PANEL Routine 05/05/2021 8:19 AM SAW MAN Hyperlipidemia, unspecified hyperlipidemia type THYROXINE, FREE (FT4) Routine 05/05/2021 8:19 AM SAW MAN Hypothyroidism, unspecified type THYROID STIM HORMONE TSH Routine 05/05/2021 8:19 AM SAW MAN Hypothyroidism, unspecified type documented in this encounter Results * ALBUMIN URINE RANDOM (05/05/2021 12:08 PM SAW MAN) CREATININE RANDOM URINE 66 20 - 275 [...] URINE SPECIMEN / Unknown 05/05/2021 12:08 PM SAW MAN 05/05/2021 12:09 PM SAW MAN Kami TROYC URINE ORDERABLES Final Res ult Performing Organization Address [facility] [address]/[place] Co de Phone Number [facility] [address] [place] [address] * THYROID STIM HORMONE, TSH (05/05/2021 8:19 AM SAW MAN) TSH 2.72 0.40 - 4.50 mIU/L [facility] 05/05/2021 8:19 AM SAW MAN 05/05/2021 8:20 AM SAW MAN Narrative [facility] - 05/06/2021 4:52 AM SAW MAN FASTING:YES FASTING: YES Kami TROYC LABORATORY Final Resu lt Performing Organization Address [facility] [address]/[facility] Co de Phone Number [facility] [address] [place] [address] * (ABNORMAL) LIPID PANEL (05/05/2021 8:19 AM SAW MAN) CHOLESTEROL 147 <200 mg/dL [facility] [...] of LDL-C. Trino SS et al. CELSA. 2013;310(03): 9725-3146 (http://education.epicurio/faq/RXD039) CHOL/HDL RATIO 2.6 <5.0 (calc) [facility] NON HDL CHOLESTEROL 90 <130 mg/dL (calc) [facility] Comment: For patients with diabetes plus 1 major ASCVD risk factor, treating to a non-HDL-C goal of <100 mg/dL (LDL-C of <70 mg/dL) is considered a therapeutic option. 05/05/2021 8:19 AM SAW MAN 05/05/2021 8:20 AM SAW MAN Narrative [facility] - 05/06/2021 4:52 AM SAW MAN FASTING:YES FASTING: YES Kami Edmond PA-C LABORATORY Final Resu lt Performing Organization Address [facility] [address]/[place] Co de Phone Number [facility] [address] [place] [address] * THYROXINE, FREE (FT4) (05/05/2021 8:19 AM SAW MAN) Pathologist [facility] FREE T4 1.1 0.8 - 1.8 ng/dL [facility] 05/05/2021 8:1 9 AM SAW MAN 05/05/2021 8:20 AM SAW MAN Narrative [facility] - 05/06/2021 4:52 AM SAW MAN FASTING:YES FASTING: YES Kami Edmond PA-C LABORATORY Final Resu lt Performing Organization Address City/[facility] [address]/ZIP Co de Phone Number [facility] [address] [facility] [place] [address] * (ABNORMAL) HEMOGLOBIN, GLYCOSYLATED (05/05/2021 8:19 AM SAW MAN) HGB A1C 6.6(H) <5.7 % of total Hgb [facility] 05/05/2021 8:19 AM SAW MAN 05/05/2021 8:20 AM SAW MAN Narrative [facility] - 05/06/2021 4:52 AM SAW MAN FASTING:YES FASTING: YES us Kami Edmond PA-C LABORATORY Final Resu lt [facility] [address] [place] [address] * (ABNORMAL) COMPREHENSIVE METABOLIC PANEL (05/05/2021 8:19 AM SAW MAN) GLUCOSE 140(H) 65 - 99 mg/dL [facility] Comment: ? Fasting reference interval For someone without known diabetes, a glucose value >125 mg/dL indicates that they may have diabetes and this should be confirmed with a follow-up test. BUN 11 7 - 25 mg/dL [facility] CREATININE S/P/B 0.76 0.50 - 0.99 mg/dL [facility] Comment: For patients >49 years of age, the reference limit for Creatinine is approximately 13% higher for people identified as -Citizen Of [place]. EGFR NON-AFR. AMER. 82 > OR = 60 mL/min/1 .73m2 [facility] EGFR AFR. AMER. 95 > OR = 60 mL/min/1 .73m2 [facility] BUN CREATININE RATIO NOT APPLICABLE 6 - 22 (calc) [facility] SODIUM S/P/B 140 135 - 146 mmol/L [facility] POTASSIUM S/P/B 4.5 3.5 - 5.3 mmol/L [facility] CHLORIDE S/P/B 101 98 - 110 mmol/L [facility] CO2 27 20 - 32 mmol/L [facility] CALCIUM S/P/B 10.3 8.6 - 10.4 mg/dL [facility] TOTAL PROTEIN S/P/B 6.8 6.1 - 8.1 g/dL [facility] ALBUMIN S/P/B 4.3 3.6 - 5.1 g/dL [facility] GLOBULIN 2.5 1.9 - 3.7 g/dL (calc) [facility] ALBUMIN/GLOBULIN RATIO 1.7 1.0 - 2.5 (calc) [facility] BILIRUBIN TOTAL S/P/B 0.6 0.2 - 1.2 mg/dL [facility] ALKALINE PHOSPHATASE S/P/B 101 37 - 153 U/L [facility] AST 29 10 - 35 U/L [facility] ALT 37(H) 6 - 29 U/L [facility] 05/05/2021 8:19 AM SAW MAN 05/05/2021 8:20 AM SAW MAN Narrative [facility] - 05/06/2021 4:52 AM SAW MAN FASTING:YES FASTING: YES us Kami Edmond PA-C LABORATORY Final Resu lt [facility] [address] [place] [address] documented in this encounter Visit Diagnoses Diagnosis Hypothyroidism, unspecified type- Primary Anxiety Anxiety state, unspecified Moderate episode of recurrent major depressive disorder ([facility]) Type 2 diabetes mellitus without complication, without long-term current use of insulin ([facility]) Hyperlipidemia, unspecified hyperlipidemia type Yeast infection of the skin Candidiasis of skin and nails documented in this encounter Additional Health Concerns Assessment Noted Time PHQ-9 Depression Total Score: 13 021 11:45 AM CDT documented as of this encounter Care Teams Refrigeration Operator Relationship Specialty Start Date End Date Kami Edmond PA-C [address] [place] [id number] PCP - General PHYSICIAN COMMUNICATIONS TOWER CLIMBER 02/05/21 documented as of this encounter
--- OUTSIDE RECORDS SUMMARY | 2024-06-23 15:34 | XMS_ITS | Encounter Summary ---
Author Organization [facility] Address [address] [place] [address]. [place], [place] [address] [place] [address] Care Team Providers Care Rn Triage Name Role Phone Alex Browne MD Primary [...] [facility] Family Medicine - [place] 100 [place] [address] Franny Dolan PA-C 100 [place] [address] documented as of this encounter Procedures Procedure Name Priority Date/Time Associated Diagnosis Comments OUTSIDE LAB (SCAN ORDER) 10/11/2018 documented in this encounter Results * OUTSIDE LAB (SCAN) (10/11/2018) 10/11/2018 Narrative 10/11/2018 Ordered by an unspecified provider. us Documents Scanned SCANNING Final Result documented in this encounter Visit Diagnoses Not on filedocumented in this encounter Care Teams Rn Triage Relationship Specialty Start Date End Date Alex Browne MD PCP - General 08/29/14 02/04/21 documented as of this encounter
--- OUTSIDE RECORDS SUMMARY | 2024-06-23 15:34 | XMS_ITS | Encounter Summary ---
Author Organization [facility] Address [address] [place] [address]. [place] [address] [place] [address] Care Team Providers Care Unishear Operator Name Role Phone Alex Browne MD [...] [facility] Family Medicine - [place] 100 [place] [address] Franny Dolan PA-C 100 [place] [address] documented as of this encounter Procedures Procedure [...] on filedocumented in this encounter Care Teams Unishear Operator Relationship Specialty Start Date End Date Alex Browne MD PCP - General 08/29/14 02/04/21 documented as of this encounter
--- OUTSIDE RECORDS SUMMARY | 2024-06-23 15:34 | XMS_ITS | Encounter Summary ---
Author Organization [facility] Address [address] [place] [address]. [place], [place] [address] [place] [address] Care Team Providers Care Electro Mechanical Engineer Name Role Phone Alex Browne MD [...] [facility] Family Medicine - [place] 100 [place] [address] Franny Dolan PA-C 100 [place] [address] documented as of this encounter Visit Diagnoses Not on filedocumented in this encounter Care Teams Electro Mechanical Engineer Relationship Specialty Start Date End Date Alex Browne MD PCP - General 08/29/14 02/04/21 documented as of this encounter
--- OUTSIDE RECORDS SUMMARY | 2024-06-23 15:34 | XMS_ITS | Encounter Summary ---
Author Organization [facility] Address [address] [place] [address]. [place], [place] [address] [place] [address] Care Team Providers Care Quality Improvement Coordinator Name Role Phone Alex Browne MD [...] Description 11/07/2024 9:40 AM CDT Office Visit [facility] Family Medicine - [place] 100 [place] [address] Franny Dolan PA-C 100 [place] [address] documented as of this encounter Procedures Procedure Name Priority Date/Time Associated Diagnosis Comments OUTSIDE LAB (SCAN ORDER) 09/04/2018 documented in this encounter Results * OUTSIDE LAB (SCAN) (09/04/2018) 09/04/2018 Narrative 09/04/2018 Ordered by an unspecified provider. us Documents Scanned SCANNING Final Result documented in this encounter Visit Diagnoses Not on filedocumented in this encounter Care Teams Quality Improvement Coordinator Relationship Specialty Start Date End Date Alex Browne MD PCP - General 08/29/14 02/04/21 documented as of this encounter
--- OUTSIDE RECORDS SUMMARY | 2024-06-23 15:34 | XMS_ITS | Encounter Summary ---
Author Organization [facility] Address [address] [place] [address]. [place], [place] [address] [place] [address] Care Team Providers Care Head Of Marketing Analytics Name Role Phone Alex Browne MD Primary [...] [facility] Family Medicine - [place] 100 [place] [address] Franny Dolan PA-C 100 [place] [address] documented as of this encounter Visit Diagnoses Not on filedocumented in this encounter Care Teams Head Of Marketing Analytics Relationship Specialty Start Date End Date Alex Browne MD PCP - General 08/29/14 02/04/21 documented as of this encounter
--- OUTSIDE RECORDS SUMMARY | 2024-06-23 15:34 | XMS_ITS | Encounter Summary ---
Author Organization [facility] Address [address] [place] [address]. [place], [place] [address] [place] [address] Care Team Providers Care Brokerage Office Manager Name Role Phone Alex Browne MD [...] [facility] Family Medicine - [place] 100 [place] [address] Franny Dolan PA-C 100 [place] [address] documented as of this encounter Visit Diagnoses Not on filedocumented in this encounter Care Teams Brokerage Office Manager Relationship Specialty Start Date End Date Alex Browne MD PCP - General 08/29/14 02/04/21 documented as of this encounter
--- OUTSIDE RECORDS SUMMARY | 2024-06-23 15:34 | XMS_ITS | Encounter Summary ---
Author Organization [facility] Address [address] [place] [address]. [place] [address] [place] [address] Care Team Providers Care Stationary Boiler Fireman Name Role Phone Alex Browne MD Primary [...] [facility] Family Medicine - [place] 100 [place] [address] Franny Dolan PA-C 100 [place] [address] documented as of this encounter Procedures Procedure [...] on filedocumented in this encounter Care Teams Stationary Boiler Fireman Relationship Specialty Start Date End Date Alex Browne MD PCP - General 08/29/14 02/04/21 documented as of this encounter
--- OUTSIDE RECORDS SUMMARY | 2024-06-23 15:34 | XMS_ITS | Encounter Summary ---
Author Organization [facility] Address [address] [place] [address]. [place], [place] [address] [place] [address] Care Team Providers Care Weather Stripper Name Role Phone Alex Browne MD Primary [...] [facility] Family Medicine - [place] 100 [place] [address] Franny Dolan PA-C 100 [place] [address] documented as of this encounter Procedures Procedure Name Priority Date/Time Associated Diagnosis Comments ULTRASOUND GENERIC (SCAN ORDER) 02/27/2018 documented in this encounter Results * ULTRASOUND GENERIC (02/27/2018) Anatomical Region Laterality Modality Other 02/27/2018 Narrative 02/27/2018 Ordered by an unspecified provider. us Documents Scanned SCANNING Final Result documented in this encounter Visit Diagnoses Not on filedocumented in this encounter Care Teams Weather Stripper Relationship Specialty Start Date End Date Alex Browne MD PCP - General 08/29/14 02/04/21 documented as of this encounter
--- OUTSIDE RECORDS SUMMARY | 2024-06-23 15:34 | XMS_ITS | Encounter Summary ---
Author Organization [facility] Address [address] [place] [address]. [place], [place] [address] [place] [address] Care Team Providers Care Abrasive Band Winder Name Role Phone Alex Browne MD Primary [...] [facility] Family Medicine - [place] 100 [place] [address] Franny Dolan PA-C 100 [place] [address] documented as of this encounter Visit Diagnoses Not on filedocumented in this encounter Care Teams Abrasive Band Winder Relationship Specialty Start Date End Date Alex Browne MD PCP - General 08/29/14 02/04/21 documented as of this encounter
--- OUTSIDE RECORDS SUMMARY | 2024-06-23 15:34 | XMS_ITS | Encounter Summary ---
Author Organization [facility] Address [address] [place] [address]. [place], [place] [address] [place] [address] Care Team Providers Care Ballast Inspector Name Role Phone Alex Browne MD Primary [...] [facility] Family Medicine - [place] 100 [place] [address] Franny Dolan PA-C 100 [place] [address] documented as of this encounter Visit Diagnoses Not on filedocumented in this encounter Care Teams Ballast Inspector Relationship Specialty Start Date End Date Alex Browne MD PCP - General 08/29/14 02/04/21 documented as of this encounter
--- OUTSIDE RECORDS SUMMARY | 2024-06-23 15:34 | XMS_ITS | Encounter Summary ---
Author Organization [facility] Address [address] [place] [address]. [place], [place] [address] [place] [address] Care Team Providers Care Coal Pulverizing Operator Name Role Phone Alex Browne MD [...] Upcoming Encounters Date Type Department Care Team ([facility] Contact Info) Description 11/07/2024 9:40 AM CDT Office Visit [facility] Family Medicine - [place] 100 [place] [address] Franny Dolan PA-C 100 [place] [address] documented as of this encounter Procedures Procedure Name Priority Date/Time Associated Diagnosis Comments SLEEP STUDY GENERIC (SCAN ORDER) 04/18/2018 documented in this encounter Results * SLEEP STUDY GENERIC (04/18/2018) 04/18/2018 Narrative 04/18/2018 Ordered by an unspecified provider. us Documents Scanned SCANNING Final Result documented in this encounter Visit Diagnoses Not on filedocumented in this encounter Care Teams Coal Pulverizing Operator Relationship Specialty Start Date End Date Alex Browne MD PCP - General 08/29/14 02/04/21 documented as of this encounter
--- OUTSIDE RECORDS SUMMARY | 2024-06-23 15:34 | XMS_ITS | Encounter Summary ---
Author Organization [facility] Address [address] [place] [address]. [place] [address] [place] [address] Care Team Providers Care Grounding Engineer Name Role Phone Alex Browne MD [...] [facility] Family Medicine - [place] 100 [place] [address] Franny Dolan PA-C 100 [place] [address] documented as of this encounter Procedures Procedure [...] on filedocumented in this encounter Care Teams Grounding Engineer Relationship Specialty Start Date End Date Alex Browne MD PCP - General 08/29/14 02/04/21 documented as of this encounter
--- OUTSIDE RECORDS SUMMARY | 2024-06-23 15:34 | XMS_ITS | Encounter Summary ---
Author Organization [facility] Address [address] [place] [address]. [place], [place] [address] [place] [address] Care Team Providers Care Exercise Scientist Name Role Phone Alex Browne MD [...] Upcoming Encounters Date Type Department Care Team ([facility] Contact Info) Description 11/07/2024 9:40 AM CDT Office Visit [facility] Family Medicine - [place] 100 [place] [address] Franny Dolan PA-C 100 [place] [address] documented as of this encounter Procedures Procedure Name Priority Date/Time Associated Diagnosis Comments SLEEP STUDY GENERIC (SCAN ORDER) 04/12/2018 documented in this encounter Results * SLEEP STUDY GENERIC (04/12/2018) 04/12/2018 Narrative 04/12/2018 Ordered by an unspecified provider. us Documents Scanned SCANNING Final Result documented in this encounter Visit Diagnoses Not on filedocumented in this encounter Care Teams Exercise Scientist Relationship Specialty Start Date End Date Alex Browne MD PCP - General 08/29/14 02/04/21 documented as of this encounter
--- OUTSIDE RECORDS SUMMARY | 2024-06-23 15:34 | XMS_ITS | Encounter Summary ---
Author Organization [facility] Address [address] [place] [address]. [place], [place] [address] [place] [address] Care Team Providers Care Assembly Inspector Helper Name Role Phone Alex Browne MD [...] [facility] Family Medicine - [place] 100 [place] [address] Franny Dolan PA-C 100 [place] [address] documented as of this encounter Visit Diagnoses Not on filedocumented in this encounter Care Teams Assembly Inspector Helper Relationship Specialty Start Date End Date Alex Browne MD PCP - General 08/29/14 02/04/21 documented as of this encounter
--- OUTSIDE RECORDS SUMMARY | 2024-06-23 15:34 | XMS_ITS | Encounter Summary ---
Author Organization [facility] Address [address] [place] [address]. [place], [place] [address] [place] [address] Care Team Providers Care Sales Effectiveness Manager Name Role Phone Alex Browne MD [...] [facility] Family [facility] - [place] 100 [place] [address] Franny Dolan PA-C 100 [place] [address] documented as of this encounter Procedures Procedure Name Priority Date/Time Associated Diagnosis Comments IMAGE GENERIC 06/13/2019 documented in this encounter Results * IMAGE GENERIC (06/13/2019) Anatomical Region Laterality Modality Other 06/13/2019 Narrative 06/13/2019 Ordered by an unspecified provider. us Documents Scanned SCANNING Final Result documented in this encounter Visit Diagnoses Not on filedocumented in this encounter Care Teams Sales Effectiveness Manager Relationship Specialty Start Date End Date Alex Browne MD PCP - General 08/29/14 02/04/21 documented as of this encounter
--- OUTSIDE RECORDS SUMMARY | 2024-06-23 15:34 | XMS_ITS | Encounter Summary ---
Author Organization [facility] Address [address] [place] [address]. [place], [place] [address] [place] [address] Care Team Providers Care Lime Filter Operator Name Role Phone Alex Browne MD [...] 11/07/2024 9:40 AM CDT Office Visit [facility] Family Medicine - [place] 100 [place] [address] Franny Dolan PA-C 100 [place] [address] documented as of this encounter Visit Diagnoses Not on filedocumented in this encounter Care Teams Lime Filter Operator Relationship Specialty Start Date End Date Alex Browne MD PCP - General 08/29/14 02/04/21 documented as of this encounter
--- OUTSIDE RECORDS SUMMARY | 2024-06-23 15:34 | XMS_ITS | Encounter Summary ---
Author Organization [facility] Address [address] [place] [address]. [place], [place] [address] [place] [address] Care Team Providers Care Fermenting Cellar Dropper Name Role Phone Alex Browne MD Primary [...] [facility] Family Medicine - [place] 100 [place] [address] Franny Dolan PA-C 100 [place] [address] documented as of this encounter Procedures Procedure Name Priority Date/Time Associated Diagnosis Comments PROCEDURE GENERIC (SCAN ORDER) 07/16/2019 documented in this encounter Results * PROCEDURE GENERIC (07/16/2019) 07/16/2019 Narrative 07/16/2019 Ordered by an unspecified provider. us Documents Scanned SCANNING Final Result documented in this encounter Visit Diagnoses Not on filedocumented in this encounter Care Teams Fermenting Cellar Dropper Relationship Specialty Start Date End Date Alex Browne MD PCP - General 08/29/14 02/04/21 documented as of this encounter
--- OUTSIDE RECORDS SUMMARY | 2024-06-23 15:34 | XMS_ITS | Encounter Summary ---
Author Organization [facility] Address [address] [place] [address]. [place], [place] [address] [place] [address] Care Team Providers Care Music Industry Internship Name Role Phone Alex Browne MD [...] [facility] - [place] 100 [place] [address] Franny Dolan PA-C 100 [place] [address] documented as of this encounter Visit Diagnoses Not on filedocumented in this encounter Care Teams Music Industry Internship Relationship Specialty Start Date End Date Alex Browne MD PCP - General 08/29/14 02/04/21 documented as of this encounter
--- OUTSIDE RECORDS SUMMARY | 2024-06-23 15:34 | XMS_ITS | Encounter Summary ---
Author Organization [facility] Address [address] [place] [address]. [place], [place] [address] [place] [address] Care Team Providers Care Press Setup Operator Name Role Phone Alex Browne MD [...] [facility] Family [facility] - [place] 100 [place] [address] Franny Dolan PA-C 100 [place] [address] documented as of this encounter Visit Diagnoses Not on filedocumented in this encounter Care Teams Press Setup Operator Relationship Specialty Start Date End Date Alex Browne MD PCP - General 08/29/14 02/04/21 documented as of this encounter
--- OUTSIDE RECORDS SUMMARY | 2024-06-23 15:34 | XMS_ITS | Encounter Summary ---
Author Organization [facility] Address [address] [place] [address]. [place], [place] [address] [place] [address] Care Team Providers Care Battery Charger Tester Name Role Phone Alex Browne MD [...] [facility] Family Medicine - [place] 100 [place] [address] Franny Dolan PA-C 100 [place] [address] documented as of this encounter Visit Diagnoses Not on filedocumented in this encounter Care Teams Battery Charger Tester Relationship Specialty Start Date End Date Alex Browne MD PCP - General 08/29/14 02/04/21 documented as of this encounter
--- OUTSIDE RECORDS SUMMARY | 2024-06-23 15:34 | XMS_ITS | Encounter Summary ---
Author Organization [facility] Address [address] [place] [address]. [place] [address] [place] [address] Care Team Providers Care Cathead Operator Name Role Phone Alex Browne MD [...] [facility] Family [facility] - [place] 100 [place] [address] Franny Dolan PA-C 100 [place] [address] documented as of this encounter Procedures Procedure Name Priority Date/Time Associated Diagnosis Comments OUTSIDE LAB (SCAN ORDER) Routine 04/17/2019 documented in this encounter Results * OUTSIDE LAB (SCAN) (04/17/2019) 04/17/2019 us Documents Scanned SCANNING Final Result [facility] [address] [place] [address] documented in this encounter Visit Diagnoses Not on filedocumented in this encounter Care Teams Cathead Operator Relationship Specialty Start Date End Date Alex rBowne MD PCP - General 08/29/14 02/04/21 documented as of this encounter
--- OUTSIDE RECORDS SUMMARY | 2024-06-23 15:34 | XMS_ITS | Encounter Summary ---
Author Organization [facility] Address [address] [place] [address]. [place], [place] [address] [place] [address] Care Team Providers Care Addictions Counselor Assistant Name Role Phone Alex Browne MD [...] [facility] Family Medicine - [place] 100 [place] [address] Franny Dolan PA-C 100 [place] [address] documented as of this encounter Procedures Procedure Name Priority Date/Time Associated Diagnosis Comments OUTSIDE LAB (SCAN ORDER) 06/30/2019 documented in this encounter Results * OUTSIDE LAB (SCAN) (06/30/2019) 06/30/2019 Narrative 06/30/2019 Ordered by an unspecified provider. us Documents Scanned SCANNING Final Result documented in this encounter Visit Diagnoses Not on filedocumented in this encounter Care Teams Addictions Counselor Assistant Relationship Specialty Start Date End Date Alex Browne MD PCP - General 08/29/14 02/04/21 documented as of this encounter
--- OUTSIDE RECORDS SUMMARY | 2024-06-23 15:34 | XMS_ITS | Encounter Summary ---
Author Organization [facility] Address [address] [place] [address]. [place] [address] [place] [address] Care Team Providers Care Licensed Weigher Name Role Phone Alex Browne MD Primary [...] [facility] Family [facility] - [place] 100 [place] [address] Franny Dolan PA-C 100 [place] [address] documented as of this encounter Procedures Procedure [...] on filedocumented in this encounter Care Teams Licensed Weigher Relationship Specialty Start Date End Date Alex Browne MD PCP - General 08/29/14 02/04/21 documented as of this encounter
--- OUTSIDE RECORDS SUMMARY | 2024-06-23 15:34 | XMS_ITS | Encounter Summary ---
Author Organization [facility] Address [address] [place] [address]. [place], [place] [address] [place] [address] Care Team Providers Care Oral Surgery Physician Name Role Phone Alex Browne MD Primary [...] [facility] Family Medicine - [place] 100 [place] [address] Franny Dolan PA-C 100 [place] [address] documented as of this encounter Visit Diagnoses Not on filedocumented in this encounter Care Teams Oral Surgery Physician Relationship Specialty Start Date End Date Alex Browne MD PCP - General 08/29/14 02/04/21 documented as of this encounter
--- OUTSIDE RECORDS SUMMARY | 2024-06-23 15:34 | XMS_ITS | Encounter Summary ---
Author Organization [facility] Address [address] [place] [address]. [place], [place] [address] [place] [address] Care Team Providers Care Head Waiter/Waitress Banquet Name Role Phone Alex Browne MD Primary [...] [facility] - [place] 100 [place] [address] Franny Dolan PA-C 100 [place] [address] documented as of this encounter Visit Diagnoses Not on filedocumented in this encounter Care Teams Head Waiter/Waitress Banquet Relationship Specialty Start Date End Date Alex Browne MD PCP - General 08/29/14 02/04/21 documented as of this encounter
--- OUTSIDE RECORDS SUMMARY | 2024-06-23 15:34 | XMS_ITS | Encounter Summary ---
Author Organization [facility] Address [address] [place] [address]. [place] [address] [place] [address] Care Team Providers Care Chaplain Resident Name Role Phone Alex Browne MD Primary [...] [facility] Family Medicine - [place] 100 [place] [address] Franny Dolan PA-C 100 [place] [address] documented as of this encounter Visit Diagnoses Not on filedocumented in this encounter Care Teams Chaplain Resident Relationship Specialty Start Date End Date Alex Browne MD PCP - General 08/29/14 02/04/21 documented as of this encounter
--- OUTSIDE RECORDS SUMMARY | 2024-06-23 15:35 | XMS_ITS | Encounter Summary ---
Author Organization [facility] Address [address] [place] [address]. [place] [address] [place] [address] Care Team Providers Care V Belt Finisher Name Role Phone Alex Browne MD [...] [facility] Family [facility] - [place] 100 [place] [phone] Franny Dolan PA-C 100 [place] [address] documented as of this encounter Procedures Procedure Name Priority Date/Time Associated Diagnosis Comments MAMMOGRAM GENERIC (SCAN ORDER) 05/14/2012 documented in this encounter Results * MAMMOGRAM GENERIC (05/14/2012) Anatomical Region Laterality Modality Other 05/14/2012 Narrative 05/14/2012 Ordered by an unspecified provider. us Documents Scanned SCANNING Final Result documented in this encounter Visit Diagnoses Not on filedocumented in this encounter Care Teams V Belt Finisher Relationship Specialty Start Date End Date Alex Browne MD PCP - General 08/29/14 02/04/21 Alex Browne MD PCP - General 05/08/13 08/28/14 Alex Browne MD PCP - General 03/22/13 05/07/13 Alex Browne MD PCP - General 03/01/13 03/21/13 documented as of this encounter
--- OUTSIDE RECORDS SUMMARY | 2024-06-23 15:35 | XMS_ITS | Encounter Summary ---
Author Organization [facility] Address [address] [place] [address]. [place], [place] [address] [place] [address] Care Team Providers Care Quantitative Analyst Marketing Name Role Phone Alex Browne MD Primary [...] [facility] Family Medicine - [place] 100 [place] [address] Franny Dolan PA-C 100 [place] [address] documented as of this encounter Visit Diagnoses Not on filedocumented in this encounter Care Teams Quantitative Analyst Marketing Relationship Specialty Start Date End Date Alex Browne MD PCP - General 08/29/14 02/04/21 documented as of this encounter
--- OUTSIDE RECORDS SUMMARY | 2024-06-23 15:35 | XMS_ITS | Encounter Summary ---
Author Organization [facility] Address [address] [place] [address]. [place], [place] [address] [place] [address] Care Team Providers Care Bottling Line Operator Name Role Phone Alex Browne MD [...] [facility] Family Medicine - [place] 100 [place] [address] Franny Dolan PA-C 100 [place] [address] documented as of this encounter Procedures Procedure Name Priority Date/Time Associated Diagnosis Comments OUTSIDE LAB (SCAN ORDER) 06/14/2017 documented in this encounter Results * OUTSIDE LAB (SCAN) (06/14/2017) 06/14/2017 Narrative 06/14/2017 Ordered by an unspecified provider. us Documents Scanned SCANNING Final Result documented in this encounter Visit Diagnoses Not on filedocumented in this encounter Care Teams Bottling Line Operator Relationship Specialty Start Date End Date Alex Browne MD PCP - General 08/29/14 02/04/21 documented as of this encounter
--- OUTSIDE RECORDS SUMMARY | 2024-06-23 15:35 | XMS_ITS | Encounter Summary ---
Author Organization [facility] Address [address] [place] [address]. [place], [place] [address] [place] [address] Care Team Providers Care Ware Server Name Role Phone Alex Browne MD Primary [...] [facility] Family Medicine - [place] 100 [place] [address] Franny Dolan PA-C 100 [place] [address] documented as of this encounter Procedures Procedure Name Priority Date/Time Associated Diagnosis Comments IMAGE GENERIC 06/17/2017 documented in this encounter Results * IMAGE GENERIC (06/17/2017) Anatomical Region Laterality Modality Other 06/17/2017 Narrative 06/17/2017 Ordered by an unspecified provider. us Documents Scanned SCANNING Final Result documented in this encounter Visit Diagnoses Not on filedocumented in this encounter Care Teams Ware Server Relationship Specialty Start Date End Date Alex Browne MD PCP - General 08/29/14 02/04/21 documented as of this encounter
--- OUTSIDE RECORDS SUMMARY | 2024-06-23 15:35 | XMS_ITS | Encounter Summary ---
Author Organization [facility] Address [address] [place] [address]. [place], [place] [address] [place] [address] Care Team Providers Care Probation Officer Name Role Phone Alex Browne MD [...] [facility] Family [facility] - [place] 100 [place] [address] Franny Dolan PA-C 100 [place] [address] documented as of this encounter Visit Diagnoses Not on filedocumented in this encounter Care Teams Probation Officer Relationship Specialty Start Date End Date Alex Browne MD PCP - General 08/29/14 02/04/21 documented as of this encounter
--- OUTSIDE RECORDS SUMMARY | 2024-06-23 15:35 | XMS_ITS | Encounter Summary ---
Author Organization [facility] Address [address] [place] [address]. [place] [address] [place] [address] Care Team Providers Care Pricing Supervisor Name Role Phone Alex Browne MD Primary Care Provider Unav Alex Ren MD Primary Care Provider Unav ailAlex Baig MD Primary Care Provider Unav ailable Alxe Browne MD Primary Care Provider Unav ailable Encounter Details Date Type Department Care Team (Late st Contact Info) Description 12/21/[address] [facility] Diagnostic Imaging [address] [place], [place] [phone] Luis Fernando Edouard MD Social History Tobacco [...] [facility] Family Medicine - [place] 100 [place] [address] Franny Dolan PA-C 100 [place] [address] documented as of this encounter Visit Diagnoses Not on filedocumented in this encounter Care Teams Pricing Supervisor Relationship Specialty Start Date End Date Alex Browne MD PCP - General 08/29/14 02/04/21 Alex Browne MD PCP - General 05/08/13 08/28/14 Alex Browne MD PCP - General 03/22/13 05/07/13 Alex Browne MD PCP - General 03/01/13 03/21/13 documented as of this encounter
--- OUTSIDE RECORDS SUMMARY | 2024-06-23 15:35 | XMS_ITS | Encounter Summary ---
Author Organization [facility] Address [address] [place] [address]. [place] [address] [place] [address] Care Team Providers Care Special Delivery Worker Name Role Phone Alex Browne MD Primary Care Provider Unav ailAlex Baig MD Primary Care Provider Unav ailable Alex Browne MD Primary Care Provider Unav ailable Encounter Details Date Type Department Care Team (Late Contact Info) Description 03/22/2013 Abstract [facility] Diagnostic [place] [address] Alex Browne MD Social History Tobacco Use [...] [facility] Family Medicine - [place] 100 [place] [phone] Franny Dolan PA-C 100 [place] [address] documented as of this encounter Visit Diagnoses Diagnosis Screening for osteoporosis Special screening for osteoporosis documented in this encounter Care Teams Special Delivery Worker Relationship Specialty Start Date End Date Alex Browne MD PCP - General 08/29/14 02/04/21 Alex Browne MD PCP - General 05/08/13 08/28/14 Alex Browne MD PCP - General 03/22/13 05/07/13 documented as of this encounter
--- OUTSIDE RECORDS SUMMARY | 2024-06-23 15:35 | XMS_ITS | Encounter Summary ---
Author Organization [facility] Address [address] [place] [address]. [place] [address] [place] [address] Care Team Providers Care Lamps Tester And Inspector Name Role Phone Alex Browne MD Primary Care Provider Unav ailable Alex Browne MD Primary Care Provider Unav ailable Encounter Details Date Type Department Care Team (Late st Contact Info) Description 05/08/2013 [place] [address] Alex Browne MD Social History Tobacco Use [...] [facility] Family Medicine - [place] 100 [place] [phone] Franny Dolan PA-C 100 [place] [address] documented as of this encounter Visit Diagnoses Diagnosis Benign essential hypertension Essential hypertension, benign documented in this encounter Care Teams Lamps Tester And Inspector Relationship Specialty Start Date End Date Alex Browne MD PCP - General 08/29/14 02/04/21 Alex Browne MD PCP - General 05/08/13 08/28/14 documented as of this encounter
--- OUTSIDE RECORDS SUMMARY | 2024-06-23 15:35 | XMS_ITS | Encounter Summary ---
Author Organization [facility] Address [address] [place] [address]. [place] [address] [place] [address] Care Team Providers Care Intelligence Manager Name Role Phone Alex Browne MD [...] [facility] Family Medicine - [place] 100 [place] [address] Franny Dolan PA-C 100 [place] [address] documented as of this encounter Procedures Procedure [...] on filedocumented in this encounter Care Teams Intelligence Manager Relationship Specialty Start Date End Date Alex Browne MD PCP - General 08/29/14 02/04/21 documented as of this encounter
--- OUTSIDE RECORDS SUMMARY | 2024-06-23 15:35 | XMS_ITS | Encounter Summary ---
Author Organization [facility] Address [address] [place] [address]. [place], [place] [address] [place] [address] Care Team Providers Care Director Of Math Name Role Phone Alex Browne MD Primary [...] Description 11/07/2024 9:40 AM CDT Office Visit [facility] Family Medicine - [place] 100 [place] [address] Franny Dolan PA-C 100 [place] [address] documented as of this encounter Visit Diagnoses Not on filedocumented in this encounter Care Teams Director Of Math Relationship Specialty Start Date End Date Alex Browne MD PCP - General 08/29/14 02/04/21 documented as of this encounter
--- OUTSIDE RECORDS SUMMARY | 2024-06-23 15:35 | XMS_ITS | Encounter Summary ---
Author Organization [facility] Address [address] [place] [address]. [place] [address] [place] [address] Care Team Providers Care Sugar Cane Farm Manager Name Role Phone Alex Browne MD [...] Description 11/07/2024 9:40 AM CDT Office Visit [facility] Family Medicine - [place] 100 [place] [phone] Franny Dolan PA-C 100 [place] [address] documented as of this encounter Procedures Procedure Name Priority Date/Time Associated Diagnosis Comments BONE DENSITY GENERIC (SCAN ORDER) 09/27/2016 documented in this encounter Results * BONE DENSITY GENERIC (09/27/2016) Anatomical Region Laterality Modality Other 09/27/2016 Narrative 09/27/2016 Ordered by an unspecified provider. us Documents Scanned SCANNING Final Result documented in this encounter Visit Diagnoses Not on filedocumented in this encounter Care Teams Sugar Cane Farm Manager Relationship Specialty Start Date End Date Alex Browne MD PCP - General 08/29/14 02/04/21 documented as of this encounter
--- OUTSIDE RECORDS SUMMARY | 2024-06-23 15:35 | XMS_ITS | Encounter Summary ---
Author Organization [facility] Address [facility] [place] [address] [place] [address] Care Team Providers Care Imaging Center Manager Name Role Phone Alex Browne MD Primary Care Provider Unav ailAlex Baig MD Primary Care Provider Unav ailable Alex Browne MD Primary Care Provider Unav ailable Alex Browne MD Primary Care Provider Unav ailable Encounter Details Date Type Department Care Team (Late st Contact Info) Description 06/18/2004 Abstract [facility] [address] [place] [address] Su See MD [address] [place] [address] Social History Tobacco Use Types Packs/Day Years [...] [facility] Family Medicine - [place] 100 [place] [phone] Franny Dolan PA-C 100 [place] [address] documented as of this encounter Visit Diagnoses Not on filedocumented in this encounter Care Teams Imaging Center Manager Relationship Specialty Start Date End Date Alex Browne MD PCP - General 08/29/14 02/04/21 Alex Browne MD PCP - General 05/08/13 08/28/14 Alex Browne MD PCP - General 03/22/13 05/07/13 Alex Browne MD PCP - General 03/01/13 03/21/13 documented as of this encounter
--- OUTSIDE RECORDS SUMMARY | 2024-06-23 15:35 | XMS_ITS | Encounter Summary ---
Author Organization [facility] Address [address] [place] [address]. [place] [address] [place] [address] Care Team Providers Care Ppa Teacher Name Role Phone Aelx Browne MD Primary Care Provider Unav Alex Ren MD Primary Care Provider Unav ailAlex Baig MD Primary Care Provider Unav ailable Alex Browne MD Primary Care Provider Unav ailable Encounter Details Date Type Department Care Team (Late st Contact Info) Description 12/11/2003 Abstract [facility] Diagnostic Imaging [address] [place], [place] [phone] Luis Fernando Edouard MD Social History Tobacco [...] [facility] Family Medicine - [place] 100 [place] [phone] Franny Dolan PA-C 100 [place] [address] documented as of this encounter Visit Diagnoses Not on filedocumented in this encounter Care Teams Ppa Teacher Relationship Specialty Start Date End Date Alex Browne MD PCP - General 08/29/14 02/04/21 Alex Browne MD PCP - General 05/08/13 08/28/14 Alex Browne MD PCP - General 03/22/13 05/07/13 Alex Browne MD PCP - General 03/01/13 03/21/13 documented as of this encounter
--- OUTSIDE RECORDS SUMMARY | 2024-06-23 15:35 | XMS_ITS | Encounter Summary ---
Author Organization [facility] Address [address] [place] [address]. [place] [address] [place] [address] Care Team Providers Care Extrusion Bender Name Role Phone Alex Browne MD Primary [...] [facility] Family [facility] - [place] 100 [place] [phone] Franny Dolan PA-C 100 [facility] [place] [address] documented as of this encounter Procedures Procedure [...] on filedocumented in this encounter Care Teams Extrusion Bender Relationship Specialty Start Date End Date Alex Browne MD PCP - General 08/29/14 02/04/21 documented as of this encounter
--- OUTSIDE RECORDS SUMMARY | 2024-06-23 15:35 | XMS_ITS | Encounter Summary ---
Author Organization [facility] Address [address] [place] [address]. [place], [place] [address] [place] [address] Care Team Providers Care Manometer Technician Name Role Phone Alex Browne MD [...] [facility] Family Medicine - [place] 100 [place] [address] Franny Dolan PA-C 100 [place] [address] documented as of this encounter Visit Diagnoses Not on filedocumented in this encounter Care Teams Manometer Technician Relationship Specialty Start Date End Date Alex Browne MD PCP - General 08/29/14 02/04/21 documented as of this encounter
--- OUTSIDE RECORDS SUMMARY | 2024-06-23 15:35 | XMS_ITS | Encounter Summary ---
Author Organization [facility] Address [address] [place] [address]. [place], [place] [address] [place] [address] Care Team Providers Care Certified Personal Trainer Name Role Phone Alex Browne MD Primary Care Provider Unav ailable Encounter Details Date Type Department Care Team (Late st Contact Info) Description 08/29/[address] [facility] [place] [address] Alex Browne MD Social History Tobacco Use [...] [facility] Family Medicine - [place] 100 [place] [address] Franny Dolan PA-C 100 [place] [address] documented as of this encounter Visit Diagnoses Diagnosis Urinary tract infection Urinary tract infection, site not specified documented in this encounter Care Teams Certified Personal Trainer Relationship Specialty Start Date End Date Alex Browne MD PCP - General 08/29/14 02/04/21 documented as of this encounter
--- OUTSIDE RECORDS SUMMARY | 2024-06-23 15:35 | XMS_ITS | Encounter Summary ---
Author Organization [facility] Address [address] [place] [address]. [place] [address] [place] [address] Care Team Providers Care Environmental Services Attendant Name Role Phone Alex Browne MD [...] [facility] Family Medicine - [place] 100 [place] [phone] Franny Dolan PA-C 100 [place] [address] documented as of this encounter Procedures Procedure [...] on filedocumented in this encounter Care Teams Environmental Services Attendant Relationship Specialty Start Date End Date Alex Browne MD PCP - General 08/29/14 02/04/21 documented as of this encounter
--- OUTSIDE RECORDS SUMMARY | 2024-06-23 15:35 | XMS_ITS | Encounter Summary ---
Author Organization [facility] Address formerly [facility] [place] [address] [place] [address] Care Team Providers Care Blueprint Cutter Name Role Phone Alex Browne MD Primary Care Provider Unav ailAlex Baig MD Primary Care Provider Unav ailAlex Biag MD Primary Care Provider Unav ailable Alex Browne MD Primary Care Provider Unav ailable Encounter Details Date Type Department Care Team (Late st Contact Info) Description 11/21/2002 Abstract [place] [address] [facility] [address] [place], [place] [phone] Luis Fernando Edouard MD Social History Tobacco [...] [facility] Family Medicine - [place] 100 [place] [phone] Franny Dolan PA-C 100 [place] [address] documented as of this encounter Visit Diagnoses Not on filedocumented in this encounter Care Teams Blueprint Cutter Relationship Specialty Start Date End Date Alex Browne MD PCP - General 08/29/14 02/04/21 Alex Browne MD PCP - General 05/08/13 08/28/14 Alex Browne MD PCP - General 03/22/13 05/07/13 Alex Browne MD PCP - General 03/01/13 03/21/13 documented as of this encounter
--- OUTSIDE RECORDS SUMMARY | 2024-06-23 15:35 | XMS_ITS | Encounter Summary ---
Author Organization [facility] Address [address] [place] [address]. [place], [place] [address] [place] [address] Care Team Providers Care Hotel Dining Room Cashier Name Role Phone Alex Browne MD Primary [...] [facility] Family [facility] - [place] 100 [place] [address] Franny Dolan PA-C 100 [place] [address] documented as of this encounter Visit Diagnoses Not on filedocumented in this encounter Care Teams Hotel Dining Room Cashier Relationship Specialty Start Date End Date Alex Browne MD PCP - General 08/29/14 02/04/21 documented as of this encounter
--- OUTSIDE RECORDS SUMMARY | 2024-06-23 15:35 | XMS_ITS | Encounter Summary ---
Author Organization [facility] Address [address] [place] [address]. [place], [place] [address] [place] [address] Care Team Providers Care Pack Master Name Role Phone Alex Browne MD Primary [...] [facility] Family [facility] - [place] 100 [place] [address] Franny Dolan PA-C 100 [place] [address] documented as of this encounter Visit Diagnoses Not on filedocumented in this encounter Care Teams Pack Master Relationship Specialty Start Date End Date Alex Browne MD PCP - General 08/29/14 02/04/21 documented as of this encounter
--- OUTSIDE RECORDS SUMMARY | 2024-06-23 15:35 | XMS_ITS | Encounter Summary ---
Author Organization [facility] Address [address] [place] [address]. [place] [address] [place] [address] Care Team Providers Care Mastercam Programmer Name Role Phone Alex Browne MD Primary Care Provider Unav Alex Ren MD Primary Care Provider Unav ailAlex Baig MD Primary Care Provider Unav ailable Alex Browne MD Primary Care Provider Unav ailable Encounter Details Date Type Department Care Team (Late Contact Info) Description 07/02/2009 Abstract [facility] Diagnostic Imaging [address] [place], [place] [id number] Alex Browne MD Social History Tobacco Use [...] [facility] Family Medicine - [place] 100 [place] [phone] Franny Dolan PA-C 100 [place] [address] documented as of this encounter Visit Diagnoses Not on filedocumented in this encounter Care Teams Mastercam Programmer Relationship Specialty Start Date End Date Alex Browne MD PCP - General 08/29/14 02/04/21 Alex Browne MD PCP - General 05/08/13 08/28/14 Alex Browne MD PCP - General 03/22/13 05/07/13 Alex Browne MD PCP - General 03/01/13 03/21/13 documented as of this encounter
--- OUTSIDE RECORDS SUMMARY | 2024-06-23 15:35 | XMS_ITS | Encounter Summary ---
Author Organization [facility] Address [address] [place] [address]. [place], [place] [address] [place] [address] Care Team Providers Care Mma Fighter Name Role Phone Alex Browne MD Primary [...] [facility] Family [facility] - [place] 100 [place] [address] Franny Dolan PA-C 100 [place] [address] documented as of this encounter Procedures Procedure Name Priority Date/Time Associated Diagnosis Comments OUTSIDE LAB (SCAN ORDER) 05/04/2017 documented in this encounter Results * OUTSIDE LAB (SCAN) (05/04/2017) 05/04/2017 Narrative 05/04/2017 Ordered by an unspecified provider. us Documents Scanned SCANNING Final Result documented in this encounter Visit Diagnoses Not on filedocumented in this encounter Care Teams Mma Fighter Relationship Specialty Start Date End Date Alex Browne MD PCP - General 08/29/14 02/04/21 documented as of this encounter
--- OUTSIDE RECORDS SUMMARY | 2024-06-23 15:35 | XMS_ITS | Encounter Summary ---
Author Organization [facility] Address [address] [place] [address]. [place], [place] [address] [place] [address] Care Team Providers Care Ecological Risk Assessor Name Role Phone Alex Browne MD Primary [...] [facility] Family [facility] - [place] 100 [place] [address] Franny Dolan PA-C 100 [place] [address] documented as of this encounter Visit Diagnoses Not on filedocumented in this encounter Care Teams Ecological Risk Assessor Relationship Specialty Start Date End Date Alex Browne MD PCP - General 08/29/14 02/04/21 documented as of this encounter
--- OUTSIDE RECORDS SUMMARY | 2024-06-23 15:35 | XMS_ITS | Encounter Summary ---
Author Organization [facility] Address [facility] [place] [address] [place] [address] Care Team Providers Care Patient Portal Representative Name Role Phone Alex Browne MD Primary Care Provider Unav ailAlex Baig MD Primary Care Provider Unav ailable Alex Browne MD Primary Care Provider Unav ailable Alex Browne MD Primary Care Provider Unav ailable Encounter Details Date Type Department Care Team (Late st Contact Info) Description 06/17/[address] [place] [address] [facility] [address] [address] [address] Maria Teresa Lofton MD [address] [place] [address] Social History Tobacco Use Types Packs/Day Years [...] [facility] Family [facility] - [place] 100 [place] [phone] Franny Dolan PA-C 100 [place] [address] documented as of this encounter Visit Diagnoses Diagnosis Injury, other and unspecified, knee, leg, ankle, and foot documented in this encounter Care Teams Patient Portal Representative Relationship Specialty Start Date End Date Alex Browne MD PCP - General 08/29/14 02/04/21 Alex Browne MD PCP - General 05/08/13 08/28/14 Alex Browne MD PCP - General 03/22/13 05/07/13 Alex Browne MD PCP - General 03/01/13 03/21/13 documented as of this encounter
--- OUTSIDE RECORDS SUMMARY | 2024-06-23 15:35 | XMS_ITS | Encounter Summary ---
Author Organization [facility] Address [address] [place] [address]. [place], [place] [address] [place] [address] Care Team Providers Care Reservoir Engineering Consultant Name Role Phone Alex Browne MD [...] [facility] Family Medicine - [place] 100 [place] [address] Franny Dolan PA-C 100 [place] [address] documented as of this encounter Visit Diagnoses Not on filedocumented in this encounter Care Teams Reservoir Engineering Consultant Relationship Specialty Start Date End Date Alex Browne MD PCP - General 08/29/14 02/04/21 documented as of this encounter
--- OUTSIDE RECORDS SUMMARY | 2024-06-23 15:35 | XMS_ITS | Encounter Summary ---
Author Organization [facility] Address [address] [place] [address]. [place] [address] [place] [address] Care Team Providers Care Gunner'S Mate G Name Role Phone Alex Browne MD Primary Care Provider Unav Alex Ren MD Primary Care Provider Unav ailAlex Baig MD Primary Care Provider Unav ailable Alex Browne MD Primary Care Provider Unav ailable Encounter Details Date Type Department Care Team (Late st Contact Info) Description 07/14/2010 Abstract [place] [facility] [place] [address] Alex Browne MD Social History Tobacco Use [...] [facility] Family [facility] - [place] 100 [place] [phone] Franny Dolan PA-C 100 [place] [address] documented as of this encounter Visit Diagnoses Diagnosis Cervicalgia documented in this encounter Care Teams Gunner'S Mate G Relationship Specialty Start Date End Date Alex Browne MD PCP - General 08/29/14 02/04/21 Alex Browne MD PCP - General 05/08/13 08/28/14 Alex Browne MD PCP - General 03/22/13 05/07/13 Alex Browne MD PCP - General 03/01/13 03/21/13 documented as of this encounter
--- OUTSIDE RECORDS SUMMARY | 2024-06-23 15:35 | XMS_ITS | Encounter Summary ---
Author Organization [facility] Address [address] [place] [address]. [place], [place] [address] [place] [address] Care Team Providers Care Fine Sander Name Role Phone Alex Browne MD Primary [...] [facility] Family Medicine - [place] 100 [place] [address] Franny Dolan PA-C 100 [place] [address] documented as of this encounter Procedures Procedure Name Priority Date/Time Associated Diagnosis Comments OUTSIDE LAB (SCAN ORDER) 07/28/2017 documented in this encounter Results * OUTSIDE LAB (SCAN) (07/28/2017) 07/28/2017 Narrative 07/28/2017 Ordered by an unspecified provider. us Documents Scanned SCANNING Final Result documented in this encounter Visit Diagnoses Not on filedocumented in this encounter Care Teams Fine Sander Relationship Specialty Start Date End Date Alex Browne MD PCP - General 08/29/14 02/04/21 documented as of this encounter
--- OUTSIDE RECORDS SUMMARY | 2024-06-23 15:35 | XMS_ITS | Encounter Summary ---
Author Organization [facility] Address [address] [place] [address]. [place], [place] [address] [place] [address] Care Team Providers Care Director Of Therapy Services Name Role Phone Alex Browne MD Primary [...] [facility] Family Medicine - [place] 100 [place] [address] Franny Dolan PA-C 100 [place] [address] documented as of this encounter Visit Diagnoses Not on filedocumented in this encounter Care Teams Director Of Therapy Services Relationship Specialty Start Date End Date Alex Browne MD PCP - General 08/29/14 02/04/21 documented as of this encounter
--- OUTSIDE RECORDS SUMMARY | 2024-06-23 15:35 | XMS_ITS | Encounter Summary ---
Author Organization [facility] Address [address] [place] [address]. [place] [address] [place] [address] Care Team Providers Care Machine Clothing Worker Name Role Phone Alex Browne MD Primary Care Provider Unav ailAlex Baig MD Primary Care Provider Unav ailable Alex Browne MD Primary Care Provider Unav ailable Alex Browne MD Primary Care Provider Unav ailable Encounter Details Date Type Department Care Team (Late st Contact Info) Description 05/07/2007 Abstract [facility] [address] [place], [place] [id number] Luis Fernando Edouard MD Social History Tobacco [...] [facility] Family [facility] - [place] 100 [place] [phone] Franny Dolan PA-C 100 [place] [address] documented as of this encounter Visit Diagnoses Not on filedocumented in this encounter Care Teams Machine Clothing Worker Relationship Specialty Start Date End Date Alex Browne MD PCP - General 08/29/14 02/04/21 Alex Browne MD PCP - General 05/08/13 08/28/14 Alex Browne MD PCP - General 03/22/13 05/07/13 Alex Browne MD PCP - General 03/01/13 03/21/13 documented as of this encounter
--- OUTSIDE RECORDS SUMMARY | 2024-06-23 15:35 | XMS_ITS | Encounter Summary ---
Author Organization [facility] Address [address] [place] [address]. [place] [address] [place] [address] Care Team Providers Care Audio Video Repairer Name Role Phone Alex Browne MD [...] [facility] Family Medicine - [place] 100 [place] [phone] Franny Dolan PA-C 100 [place] [address] documented as of this encounter Procedures Procedure Name Priority Date/Time Associated Diagnosis Comments ULTRASOUND GENERIC (SCAN ORDER) 05/16/2012 documented in this encounter Results * ULTRASOUND GENERIC (05/16/2012) Anatomical Region Laterality Modality Other 05/16/2012 Narrative 05/16/2012 Ordered by an unspecified provider. us Documents Scanned SCANNING Final Result documented in this encounter Visit Diagnoses Not on filedocumented in this encounter Care Teams Audio Video Repairer Relationship Specialty Start Date End Date Alex Browne MD PCP - General 08/29/14 02/04/21 Alex Browne MD PCP - General 05/08/13 08/28/14 Alex Browne MD PCP - General 03/22/13 05/07/13 Alex Browne MD PCP - General 03/01/13 03/21/13 documented as of this encounter
--- OUTSIDE RECORDS SUMMARY | 2024-06-23 15:35 | XMS_ITS | Encounter Summary ---
Author Organization [facility] Address [address] [place] [address]. [place] [address] [place] [address] Care Team Providers Care Sandblast Or Shotblast Equipment Tender Name Role Phone Alex Browne MD Primary Care Provider Unav Alex Ren MD Primary Care Provider Unav ailable Alex Browne MD Primary Care Provider Unav ailable Alex Browne MD Primary Care Provider Unav ailable Encounter Details Date Type Department Care Team (Late Contact Info) Description 03/01/2013 [place] [address] Alex Browne MD Social History Tobacco Use [...] [facility] Family Medicine - [place] 100 [place] [phone] Franny Dolan PA-C 100 [place] [address] documented as of this encounter Visit Diagnoses Diagnosis Mixed hyperlipidemia documented in this encounter Care Teams Sandblast Or Shotblast Equipment Tender Relationship Specialty Start Date End Date Alex Browne MD PCP - General 08/29/14 02/04/21 Alex Browne MD PCP - General 05/08/13 08/28/14 Alex Browne MD PCP - General 03/22/13 05/07/13 Alex Browne MD PCP - General 03/01/13 03/21/13 documented as of this encounter
--- OUTSIDE RECORDS SUMMARY | 2024-06-23 15:35 | XMS_ITS | Encounter Summary ---
Author Organization [facility] Address [address] [place] [address]. [place], [place] [address] [place] [address] Care Team Providers Care Oil Winterizer Name Role Phone Alex Browne MD Primary [...] [facility] Family Medicine - [place] 100 [place] [address] Franny Dolan PA-C 100 [place] [address] documented as of this encounter Visit Diagnoses Not on filedocumented in this encounter Care Teams Oil Winterizer Relationship Specialty Start Date End Date Alex Browne MD PCP - General 08/29/14 02/04/21 documented as of this encounter
--- OUTSIDE RECORDS SUMMARY | 2024-06-23 15:35 | XMS_ITS | Encounter Summary ---
Author Organization [facility] Address [address] [place] [address]. [place], [place] [address] [place] [address] Care Team Providers Care Patient Registration Rep Name Role Phone Alex Browne MD Primary [...] [facility] Family Medicine - [place] 100 [place] [address] Franny Dolan PA-C 100 [place] [address] documented as of this encounter Visit Diagnoses Not on filedocumented in this encounter Care Teams Patient Registration Rep Relationship Specialty Start Date End Date Alex Browne MD PCP - General 08/29/14 02/04/21 documented as of this encounter
--- OUTSIDE RECORDS SUMMARY | 2024-06-23 15:35 | XMS_ITS | Encounter Summary ---
Author Organization [facility] Address [address] [place] [address]. [place] [address] [place] [address] Care Team Providers Care Attending Anesthesiologist Name Role Phone Alex Browne MD Primary Care Provider Unav ailable Encounter Details Date Type Department Care Team (Late st Contact Info) Description 02/22/[address] [facility] [place] [address] Ganesh Shepherd MD [facility] [address] [address] Social History Tobacco Use Types Packs/Day Years [...] [facility] Family Medicine - [place] 100 [place] [address] Franny Dolan PA-C 100 [place] [address] documented as of this encounter Visit Diagnoses Not on filedocumented in this encounter Care Teams Attending Anesthesiologist Relationship Specialty Start Date End Date Alex Browne MD PCP - General 08/29/14 02/04/21 documented as of this encounter
--- OUTSIDE RECORDS SUMMARY | 2024-06-23 15:35 | XMS_ITS | Encounter Summary ---
Author Organization [facility] Address [address] [place] [address]. [place], [place] [address] [place] [address] Care Team Providers Care Doctor Of Naprapathic Medicine Name Role Phone Alex Browne MD Primary [...] Description 11/07/2024 9:40 AM CDT Office Visit [facility] Family Medicine - [place] 100 [place] [address] Franny Dolan PA-C 100 [place] [address] documented as of this encounter Visit Diagnoses Not on filedocumented in this encounter Care Teams Doctor Of Naprapathic Medicine Relationship Specialty Start Date End Date Alex Browne MD PCP - General 08/29/14 02/04/21 documented as of this encounter
--- OUTSIDE RECORDS SUMMARY | 2024-06-23 15:35 | XMS_ITS | Encounter Summary ---
Author Organization [facility] Address [facility] [place] [address] [place] [address] Care Team Providers Care Brusher Hand Name Role Phone Alex Browne MD Primary Care Provider Unav ailAlex Baig MD Primary Care Provider Unav ailable Alex Browne MD Primary Care Provider Unav ailable Alex Browne MD Primary Care Provider Unav ailable Encounter Details Date Type Department Care Team (Late st Contact Info) Description 03/01/2013 Abstract [place] [address] Valentino Hamm MD [address] [place] [address] Social History Tobacco Use Types Packs/Day Years [...] [facility] Family Medicine - [place] 100 [place] [phone] Franny Dolan PA-C 100 [place] [address] documented as of this encounter Visit Diagnoses Diagnosis Pre-operative examination Preoperative examination, unspecified documented in this encounter Care Teams Brusher Hand Relationship Specialty Start Date End Date Alex Browne MD PCP - General 08/29/14 02/04/21 Alex Browne MD PCP - General 05/08/13 08/28/14 Alex Browne MD PCP - General 03/22/13 05/07/13 Alex Browne MD PCP - General 03/01/13 03/21/13 documented as of this encounter
--- OUTSIDE RECORDS SUMMARY | 2024-06-23 15:45 | XMS_ITS | Clinical Summary ---
Author Organization [facility] Address [address], [facility] 1 [place] [address] Phone Care Team Providers Care Linen Supply Load Builder Name Role Phone Alex Browne MD Primary [...] Take 10 mg by mouth. Active nystatin 093175 UNIT/GM Powder Apply. 03/22/2021 Acti ve glipiZIDE [...] CDT Office Visit [facility] [address] [address] Basil Staley, DO [address] [place] [address] Health Maintenance Due Date Last [...] CDT) Glucose 257(H) 70 - 105 mg/dL [facility] Blood Urea Nitrogen 16 7 - 25 mg/dL [facility] Creatinine 0.8 0.6 - 1.2 mg/dL [facility] Sodium 140 136 - 145 mEq/L [facility] Potassium 3.8 3.5 - 5.1 mEq/L [facility] Chloride 105 98 - 107 mEq/L [facility] Bicarbonate 27 21 - 31 mEq/L [facility] Total Bilirubin 0.6 0.3 - 1.0 mg/dL [facility] Alk. Phosphatase 111(H) 34 - 104 U/L [facility] Aspartate Aminotransferase 44(H) 13 - 39 U/L [facility] Alanine Aminotransferase 47 7 - 52 U/L [facility] Total Protein 6.7 6.4 - 8.9 g/dL [facility] Albumin 4.2 3.5 - 5.7 g/dL [facility] Calcium 9.9 8.6 - 10.3 mg/dL [facility] Anion Gap 11.8 7.0 - 15.0 mEq/L [facility] Globulin 2.5 2.0 - 3.5 g/dL [facility] EGFR 81 >60 ml/min/1. 73m2 [facility] Comment: This eGFR is calculated using 2020 CKD-EPI Creatinine equation without race modifier based on the NKF-ASN task force recommendations Blood 09/10/2021 10:0 2 AM CDT Narrative [facility] - 09/10/2021 10:51 AM CDT IS THE PATIENT REQUIRED TO BE FASTING FOR 8 HOURS?->No Release to patient->Immediate us Jonathan Crews PAC CHEMISTRY ORDERABLES Final Result [facility] [place] [facility] [place] [address] [place] [address], from Last 3 Months or Most Recently Relevant to Health Maintenance Insurance MEDICARE [facility] [facility] [facility] Care Teams Linen Supply Load Builder Relationship Specialty Start Date End Date Manteno, Alex L, MD 100 [place] [address] PCP - General Family Medicine 02/14/18
--- OUTSIDE RECORDS SUMMARY | 2024-06-23 15:45 | XMS_ITS | Encounter Summary ---
Author Organization [employer] Care Team Providers Care Process Development Associate Name Role Phone Alex Browne MD Primary Care Provider [phone] Encounter Details Date Type Department Care Team [...] CDT Office Visit [facility] [address] [address] Basil Staley, DO [address] [place] [phone] documented as of this encounter Visit Diagnoses Not on filedocumented in this encounter Additional Health Concerns Assessment Noted Time PHQ-9 Depression Total Score: 0 06/12/20 20 10:52 AM CIRCULATION REPRESENTATIVE documented as of this encounter Care Teams Process Development Associate Relationship Specialty Start Date End Date Alex Browne MD [address] [place] [address] PCP - General Family Medicine 02/14/18 documented as of this encounter
--- OUTSIDE RECORDS SUMMARY | 2024-06-23 15:45 | XMS_ITS | Encounter Summary ---
Author Organization [facility] Address [address] [place] [address] Phone Care Team Providers Care Enrollment Eligibility Representative Name Role Phone Alex Browne MD Primary Care Provider [phone] Reason for Visit * Reason Comments Follow-up Encounter Details Date Type Department Care Team (Late st Contact Info) Description 09/08/2023 10:30 AM CDT Office Visit [facility] [place] [address] [place] [phone] Ann Sullivan, PLASTIC SEWER, PERFORMANCE TESTER [address] [place] [address] Secondary polycythemia (Primary Dx) Social [...] 68 y.o. : 1955 Encounter Dept: [facility] Encounter Date: 09/08/2023 Care Team: Current Providers [...] normal. Basil Staley, DO, IJEOMA [place], DNP, GETTERING FILAMENT MACHINE OPERATOR- Vitals: Vitals: 09/08/23 1051 BP: 130/84 BP [...] (MULTIVITAMIN PO) Take by mouth. ??? nystatin 405961 UNIT/GM Powder Apply. ??? Ozempic, 1 MG/DOSE, [...] 760 - 4,000 cells/uL Final ??? Absolute [place] Count 09/09/2022 460 160 - 1,200 cells/uL [...] Office Visit [facility] [address] [phone] Basil Staley DO [address] [place] [phone] documented as of this encounter Visit Diagnoses Diagnosis Secondary polycythemia- Primary Polycythemia, secondary documented in this encounter Additional Health Concerns Assessment Noted Time PHQ-9 Depression Total Score: 0 06/12/20 20 10:52 AM TELEPHONIC NURSE documented as of this encounter Care Teams Enrollment Eligibility Representative Relationship Specialty Start Date End Date Alex Browne MD [address] [place] [address] PCP - General Family Medicine 02/14/18 documented as of this encounter
--- OUTSIDE RECORDS SUMMARY | 2024-06-23 15:46 | XMS_ITS | Encounter Summary ---
Author Organization [facility] Address [address] [place] [address] Care Team Providers Care Operational Communication Chief Name Role Phone Alex Browne MD Primary Care Provider [phone]- [phone] Reason for Referral * Diagnostic Imaging (Routine) - Closed Specialty Diagnoses / Procedures Referred By Michelle lozano Referred To Contact Diagnoses Bilateral hand pain Procedures XR Hand Right 3+ Vw Vandana Cheung MD Phone: tel: fax: [address] [address] Referral ID Status Reason Start Date Expiration Date Visits Re quested Visits Authorized [id number] Closed 08/20/2020 09/19/2021 1 1 CTOR OF RESIDENCE LIFE * Diagnostic Imaging (Routine) - Closed Specialty Diagnoses / Procedures Referred By Michelle lozano Referred To Contact Diagnoses Bilateral hand pain Procedures XR Hand Left 3+ Vw Vandana Cheung MD Phone: tel: fax: [address] [address] Referral ID Status Reason Start Date Expiration Date Visits Re quested Visits Authorized [id number] Closed 08/20/2020 09/19/2021 1 1 CTOR OF [employer]IDENCE [employer] Encounter Details Date Type Department Care Team (Late st Contact Info) Description 08/21/2020 9:50 AM DIRECTOR OF RESIDENCE LIFE Hospital Encounter [facility] OP INTERIM Vandana Cheung MD [address] [place] [address] Bilateral hand pain Social History Tobacco Use [...] Read Routine (OP Routine) 08/21/2020 9:53 AM DIRECTOR OF RESIDENCE LIFE Bilateral hand pain XR HAND LEFT 3 OR MORE VIEWS Schedule Routine, Read Routine (OP Routine) 08/21/2020 9:53 AM DIRECTOR OF RESIDENCE LIFE Bilateral hand pain documented in this encounter Results * XR Hand Right 3+ Vw (08/21/2020 9:53 AM DIRECTOR OF RESIDENCE LIFE) Anatomical Region Laterality Modality Upper Extremities, Hand Right Radiogra phic Imaging 08/22/2020 7:35 AM DIRECTOR OF RESIDENCE LIFE Narrative 08/22/2020 7:38 AM DIRECTOR OF RESIDENCE LIFE Patient Name: ALICIA BOYCE ?Ordering Dr: Vandana Cheung MD ?? D.O.B: 1955 ? Exam Date: 08/21/20 ?? 0953 ?? Age: 65 ?Sex: Female ? MR#: [id number] ?? Loc: ? RADIOLOGY REPORT ?? Order #[id number] ?? Radiology ? Hand Right 3 View [...] 7:38 AM ?? T: ? Report ID: [id number] ?? Reading Location: ??[id number] ? REPORT ELECTRONICALLY SIGNED IN OTHER VENDOR SYSTEM ?? Resulting Agency Comment O Procedure Note Jayesh Hoffmann MD - 08/22/2020 Patient Name: LEONARDGIOALICIA Dr: Vandana Cheung MD D.O.B: 1955 Exam Date: 08/21/20952 Age: 65 Sex: Female MR#: [id number] Loc: RADIOLOGY REPORT Order #[id number] Radiology Hand Right 3 View Min Signed [...] signed by Jayesh Hoffmann T: Report ID: [id number] Reading Location: [place] [address] REPORT ELECTRONICALLY SIGNED IN OTHER VENDOR SYSTEM us Vandana Cheung MD IMG XR PROCEDURES Final R esult * XR Hand Left 3+ Vw (08/21/2020 9:53 AM DIRECTOR OF RESIDENCE LIFE) Anatomical Region Laterality Modality Upper Extremities, Hand Left [facility] 08/22/2020 7:35 AM DIRECTOR OF RESIDENCE LIFE Narrative 08/22/2020 7:38 AM DIRECTOR OF RESIDENCE LIFE Patient Name: ALICIA BOYCE ?Ordering Dr: Vandana Cheung MD ?? D.O.B: 1955 ? Exam Date: 08/21/20 ?? 0953 ?? Age: 65 ?Sex: Female ? MR#: [id number] ?? Loc: ? RADIOLOGY REPORT ?? Order #[id number] ?? Radiology ? Hand Left 3 View [...] 7:38 AM ?? T: ? Report ID: [id number] ?? Reading Location: ??[id number] ? REPORT ELECTRONICALLY SIGNED IN OTHER VENDOR SYSTEM ?? Resulting Agency Comment O Procedure Note Jayesh Hoffmann MD - 08/22/2020 Patient Name: ALICIA BOYCEsunniham Dr: Vandana Cheung MD D.O.B: 1955 Exam Date: 08/21/20952 Age: 65 Sex: Female MR#: [id number] Loc: RADIOLOGY REPORT Order #[id number] Radiology Hand Left 3 View Min Signed [...] signed by Jayesh BRUMFIELD T: Report ID: [id number] Reading Location: [place] [address] REPORT ELECTRONICALLY SIGNED IN OTHER VENDOR SYSTEM Vandana Cheung MD IMG XR PROCEDURES Final R esult documented in this encounter Visit Diagnoses Diagnosis Bilateral hand pain documented in this encounter Care Teams Operational Communication Chief Relationship Specialty Start Date End Date Alex Browne MD [address] [place] [address] PCP - General 10/11/18 11/21/22 documented as of this encounter
--- OUTSIDE RECORDS SUMMARY | 2024-06-23 15:46 | XMS_ITS | Encounter Summary ---
Author Organization [facility] Address [address] [facility] [address] [place] [address] Care Team Providers Care Tour Bus Driver/Guide Name Role Phone Alex Browne MD Primary Care Provider [phone]- [phone] Encounter Details Date Type Department Care Team (Late st Contact Info) Description 08/10/2021 Orders Only [facility] Medical [facility] Pulmonology & Sleep Clinic [address] [address] Eric Gonzalez MD [facility] [address] [address] Obstructive sleep apnea (Primary Dx) Social History [...] cm h20 and full set of supplies. INE WEDGER documented in this encounter Plan of Treatment Not on file documented as of this encounter Visit Diagnoses Diagnosis Obstructive sleep apnea- Primary Obstructive sleep apnea (adult) (pediatric) documented in this encounter Care Teams Tour Bus Driver/Guide Relationship Specialty Start Date End Date Alex Browne MD [address] [facility] [place] [address] PCP - General 10/11/18 11/21/22 documented as of this encounter
--- OUTSIDE RECORDS SUMMARY | 2024-06-23 15:46 | XMS_ITS | Encounter Summary ---
Author Organization [facility] Address [address] [place] [address] Care Team Providers Care Case Manager Specialist Name Role Phone Alex Browne MD Primary Care Provider [phone]- [phone] Reason for Visit * Neurology (Routine) - Closed Specialty Diagnoses / Procedures Referred By Michelle lozano Referred To Contact Diagnoses Carpal tunnel syndrome, unspecified laterality Procedures EMG/NCV - Martha Wolff MD Phone: tel: fax: [facility] [address] [place] [address] Referral ID Status Reason Start Date Expiration Date Visits Re quested Visits Authorized [id number] Closed 09/15/2021 10/15/2022 1 1 Encounter Details Date Type Department Care Team (Late st Contact Info) Description 11/15/2021 1:00 PM CDT Therapy [facility] Ortho [facility] Neuro [facility] OP Physical Therapy [address] [address] Carpal tunnel syndrome, unspecified laterality [...] 11/15/2021 documented in this encounter Care Teams Case Manager Specialist Relationship Specialty Start Date End Date Alex Browne MD [address] [place] [address] PCP - General 10/11/18 11/21/22 documented as of this encounter
--- OUTSIDE RECORDS SUMMARY | 2024-06-23 15:46 | XMS_ITS | Encounter Summary ---
Author Organization [facility] Address [address] [place] [address] Phone Care Team Providers Care Relocation Commissioner Name Role Phone Franny Dloan Primary Care Provider [phone] Encounter Details Date Type Department Care Team (Late st Contact Info) Description 01/02/2023 Telephone [facility] Otolaryngology [address] [place] [address] Raina Wolff Social History Tobacco Use [...] on filedocumented in this encounter Care Teams Relocation Commissioner Relationship Specialty Start Date End Date Franny Dolan PA [address] [place] [address] PCP - General Physician Army Ranger 11/22/22 documented as of this encounter
--- OUTSIDE RECORDS SUMMARY | 2024-06-23 15:46 | XMS_ITS | Encounter Summary ---
Author Organization [facility] Address [address] [facility] [address] [place] [address] Care Team Providers Care Office Coordinator Receptionist Name Role Phone Alex Browne MD Primary Care Provider [phone]- [phone] Encounter Details Date Type Department Care Team (Late st Contact Info) Description 08/16/2022 11:00 AM CONCRETE PRODUCTS MACHINE OPERATOR Office Visit [facility] Medical [facility] Pulmonary [place] [id number] [facility] [address] [place] [address] Emilee Escalante, MEDIA DIRECTOR [address] [facility] [address] [address] NIRANJAN (obstructive sleep apnea) (Primary [...] Comments Blood Pressure 158/72 08/16/2022 10:51 AM CONCRETE PRODUCTS MACHINE OPERATOR Pulse 71 08/16/2022 10:51 AM CONCRETE PRODUCTS MACHINE OPERATOR Temperature 36.4 ??C (97.6 ??F) 08/16/2022 10:[address] Respiratory Rate 18 08/16/2022 10:51 AM CONCRETE PRODUCTS MACHINE OPERATOR Oxygen Saturation 95% 08/16/2022 10:51 AM CONCRETE PRODUCTS MACHINE OPERATOR Inhaled Oxygen Concentration - - Weight 126.1 kg (278 lb) 08/16/2022 10:51 AM CONCRETE PRODUCTS MACHINE OPERATOR Height 162.6 cm (5' 4 ) 08/16/2022 10:51 AM CONCRETE PRODUCTS MACHINE OPERATOR Body Mass Index 47.72 08/16/2022 10:51 AM CONCRETE PRODUCTS MACHINE OPERATOR documented in this encounter Progress Notes * Emilee Escalante, MEDIA DIRECTOR - 08/16/2022 11:00 AM CST Images from [...] capsule Take 1 capsule by mouth daily [id number] (CORTISPORIN) 3.5-10,000-1 mg/mL-unit/mL-% otic suspension Administer 3 [...] Eric Gonzalez MD at 08/16/2022 4:07 PM CONCRETE PRODUCTS MACHINE OPERATOR [employer] MACHINE OPERATOR RETE [employer]ODU[employer] MACHINE OPERATOR documented in this encounter Miscellaneous Notes * Assessment & Plan Note - Emilee Escalante NP - 08/16/2022 11:53 AM CONCRETE PRODUCTS MACHINE OPERATOR Associated Problem(s): Acute cough The patient is going to see her primary physician regarding the cough. I did inform the patient that if she needs pulmonary function test and a chest x-ray to call back in. RET[employer] MACHINE OPERATOR * Assessment & Plan Note - Emilee Escalante NP - 08/16/2022 11:53 AM CONCRETE PRODUCTS MACHINE OPERATOR Associated Problem(s): NIRANJAN (obstructive sleep apnea) Patient continue to wear CPAP at 17 cm water pressure while sleeping. Her DME is adapt. RETE [employer]ODU[employer] MACHINE OPERATOR documented in this encounter Plan of Treatment Not on file documented as of this encounter Visit Diagnoses Diagnosis NIRANJAN (obstructive sleep apnea)- Primary Obstructive sleep apnea (adult) (pediatric) Acute cough documented in this encounter Care Teams Office Coordinator Receptionist Relationship Specialty Start Date End Date Alex Browne MD [address] [place] [address] PCP - General 10/11/18 11/21/22 documented as of this encounter
--- OUTSIDE RECORDS SUMMARY | 2024-06-23 15:46 | XMS_ITS | Encounter Summary ---
Author Organization [facility] Address [address] [place] [address] Phone Care Team Providers Care Chinese Teacher Name Role Phone Alex Browne MD Primary Care Provider [phone]- [phone] Reason for Visit * Reason Onset Date Comments Vaginitis/Bacterial Vaginosis 03/06/2020 Encounter Details Date Type Department Care Team (Late st Contact Info) Description 03/06/2020 Telephone [facility] Otolaryngology [address] [place] [address] Raina Wolff Vaginitis/Bacterial Vaginosis Social History [...] documented as of this encounter Care Teams Chinese Teacher Relationship Specialty Start Date End Date Alex Browne MD [address] [place] [address] PCP - General 10/11/18 11/21/22 documented as of this encounter
--- OUTSIDE RECORDS SUMMARY | 2024-06-23 15:46 | XMS_ITS | Encounter Summary ---
Author Organization [facility] Medical [facility] Address [address] [address] Care Team Providers Care Mutuel Machine Operator Name Role Phone Alex Browne MD Primary Care Provider [phone]- [phone] Reason for Referral * Procedure (Routine) - Closed Specialty Diagnoses / Procedures Referred By Contac t Referred To Contact Diagnoses Trigger middle finger of left hand Procedures Hand / Upper Extremity Arthrocentesis: L long A1 Vandana Cheung MD Phone: tel: fax: [facility] Group Referral ID Status Reason Start Date Expiration Date Visits Re quested Visits Authorized [id number] Closed 08/21/2020 09/20/2021 1 1 NCT INSTRUCTOR OF WOMEN'S STUDIES * Diagnostic Imaging (Routine) - Closed Specialty Diagnoses / Procedures Referred By Contac t Referred To Contact Diagnoses Bilateral hand pain Procedures XR Hand Right 3+ Vw Vandana Cheung MD Phone: tel: fax: [address] [address] Referral ID Status Reason Start Date Expiration Date Visits Re quested Visits Authorized [id number] Closed 08/20/2020 09/19/2021 1 1 NCT INSTRUCTOR OF WOMEN'S STUDIES * Diagnostic Imaging (Routine) - Closed Specialty Diagnoses / Procedures Referred By Contac t Referred To Contact Diagnoses Bilateral hand pain Procedures XR Hand Left 3+ Vw Vandana Cheung MD Phone: tel: fax: [facility] [address] [place] [address] Referral ID Status Reason Start Date Expiration Date Visits Re quested Visits Authorized [id number] Closed 08/20/2020 09/19/2021 1 1 NCT INSTRUCTOR OF WOMEN'S STUDIES Reason for Visit * Reason Comments Pain Numbness * Consultation (Routine) - Closed Specialty Diagnoses / Procedures Referred By Contac t Referred To Contact Orthopedic Surgery Diagnoses Bilateral hand pain Alex Browne MD [address] [place] [address] Phone: tel: fax: Erick Sarabia MD [address] [place] [address] [address] [place] [address] Phone: tel: fax: Referral ID Status Reason Start Date Expiration Date V isits Requested Visits Authorized [id number] Closed Specialty Services Required 07/02/2020 08/01/2021 1 1 Encounter Details Date Type Department Care Team (Late st Contact Info) Description 08/21/2020 10:00 AM ADJUNCT INSTRUCTOR OF WOMEN'S STUDIES Office Visit [facility] Medical [facility] Hand Surgery [address] [place] [address] [place] [phone] Vandana Cheung MD [address] [place] [address] [address] [place] [address] Bilateral hand pain (Primary Dx); Numbness and [...] 131.5 kg (290 lb) 08/21/2020 9:42 AM ADJUNCT INSTRUCTOR OF WOMEN'S STUDIES Height 162.6 cm (5' 4 ) 08/21/2020 9:42 AM ADJUNCT INSTRUCTOR OF WOMEN'S STUDIES Body Mass Index 49.78 08/21/2020 9:42 AM ADJUNCT INSTRUCTOR OF WOMEN'S STUDIES documented in this encounter Progress Notes * [...] started possibly which she is taking down [employer] decorations and cleaning. She notes a burning [...] adverse reactions were observed. Vandana Cheung MD NCT INSTRUCTOR OF WOMEN'S STUDIES documented in this encounter Plan of Treatment Not on file documented as of this encounter Procedures Procedure Name Priority Date/Time Associated Diagnosis Comments DE INJECTION 1 TENDON SHEATH/LIGAMENT APONEUROSIS Routine 08/21/2020 10:00 AM ADJUNCT INSTRUCTOR OF WOMEN'S STUDIES Trigger middle finger of left hand documented in this encounter Results * DE INJECTION 1 TENDON SHEATH/LIGAMENT APONEUROSIS (08/21/2020 10:00 AM ADJUNCT INSTRUCTOR OF WOMEN'S STUDIES) Narrative Vandana Cheung MD - 08/21/2020 10:00 AM ADJUNCT INSTRUCTOR OF WOMEN'S STUDIES Vandana Cheung MD ? 08/21/2020 10:54 AM [...] Hand Right 3+ Vw (08/21/2020 9:53 AM ADJUNCT INSTRUCTOR OF WOMEN'S STUDIES) Anatomical Region Laterality Modality Upper Extremities, Hand Right Radiogra phic Imaging 08/22/2020 7:35 AM ADJUNCT INSTRUCTOR OF WOMEN'S STUDIES Narrative 08/22/2020 7:38 AM ADJUNCT INSTRUCTOR OF WOMEN'S STUDIES Patient Name: ALICIA BOYCE ?Ordering Dr: Vandana Cheung MD ?? D.O.B: 1955 ? Exam Date: 08/21/20 ?? 0953 ?? Age: 65 ?Sex: Female ? MR#: [id number] ?? Loc: ? RADIOLOGY REPORT ?? Order #[id number] ?? Radiology ? Hand Right 3 View [...] 7:38 AM ?? T: ? Report ID: [id number] ?? Reading Location: ??[id number] ? REPORT ELECTRONICALLY SIGNED IN OTHER VENDOR SYSTEM ?? Resulting Agency Comment O Procedure Note Jayesh Hoffmann MD - 08/22/2020 Patient Name: CONORGIOALICIA Dr: Vandana Cheung MD D.O.B: 1955 Exam Date: 08/21/20952 Age: 65 Sex: Female MR#: [id number] Loc: RADIOLOGY REPORT Order #[id number] Radiology Hand Right 3 View Min Signed [...] signed by Jayesh Hoffmann T: Report ID: [id number] Reading Location: [place] [address] REPORT ELECTRONICALLY SIGNED IN OTHER VENDOR SYSTEM us Vandana Cheung MD IMG XR PROCEDURES Final R esult * XR Hand Left 3+ Vw (08/21/2020 9:53 AM ADJUNCT INSTRUCTOR OF WOMEN'S STUDIES) Anatomical Region Laterality Modality Upper Extremities, Hand Left [facility] 08/22/2020 7:35 AM ADJUNCT INSTRUCTOR OF WOMEN'S STUDIES Narrative 08/22/2020 7:38 AM ADJUNCT INSTRUCTOR OF WOMEN'S STUDIES Patient Name: ALICIA BOYCE ?Ordering Dr: Vandana Cheung MD ?? D.O.B: 1955 ? Exam Date: 08/21/20 ?? 0953 ?? Age: 65 ?Sex: Female ? MR#: [id number] ?? Loc: ? RADIOLOGY REPORT ?? Order #[id number] ?? Radiology ? Hand Left 3 View [...] 7:38 AM ?? T: ? Report ID: [id number] ?? Reading Location: ??[id number] ? REPORT ELECTRONICALLY SIGNED IN OTHER VENDOR SYSTEM ?? Resulting Agency Comment O Procedure Note Jayesh Hoffmann MD - 08/22/2020 Patient Name: ALICIA BOYCE Dr: Vandana Cheung MD D.O.B: 1955 Exam Date: 08/21/20952 Age: 65 Sex: Female MR#: [id number] Loc: RADIOLOGY REPORT Order #[id number] Radiology Hand Left 3 View Min Signed [...] signed by Jayesh BRUMFIELD T: Report ID: [id number] Reading Location: [place] [address] REPORT ELECTRONICALLY SIGNED IN OTHER VENDOR SYSTEM [...] of Local Anesthesia Given 08/21/2020 10:27 AM ADJUNCT INSTRUCTOR OF WOMEN'S STUDIES 1 mL triamcinolone (KENALOG) 40 mg/mL injection 40 mg 40 mg, intra-articular, One-Time Injection, Starting on Mon08/21/20 at 1027, For 1 doseIndications:Trigger middle finger of left hand Given 08/21/2020 10:27 AM ADJUNCT INSTRUCTOR OF WOMEN'S STUDIES 40 mg documented in this encounter Historical Medications * This list may reflect changes made after this encounter. cyclobenzaprine (FLEXERIL) 10 mg tablet Take 10 mg by mouth daily 08/17/2020 10/19/2020 added in this encounter Orders Outpatient Referral Count Last Ordered Date Fir st Ordered Date AMB REFERRAL TO ORTHOPEDIC SURGERY 1 2020 documented in this encounter Care Teams Mutuel Machine Operator Relationship Specialty Start Date End Date Alex Browne MD [address] [facility] [place] [address] PCP - General 10/11/18 11/21/22 documented as of this encounter
--- OUTSIDE RECORDS SUMMARY | 2024-06-23 15:46 | XMS_ITS | Encounter Summary ---
Author Organization [facility] Address [address] [facility] [address] [place] [address] Care Team Providers Care Lint Cleaner Name Role Phone Alex Browne MD Primary Care Provider [phone]- [phone] Reason for Visit * Reason Comments Follow-up Encounter Details Date Type Department Care Team (Late st Contact Info) Description 10/19/2020 9:45 AM CDT Office Visit [facility] Medical [facility] Pulmonology & Sleep Clinic [address] [address] Emilee Escalante, PLATFORM MAN [address] [address] NIRANJAN (obstructive sleep apnea) (Primary [...] this encounter Progress Notes * Emilee Escalante, PLATFORM MAN - 10/19/2020 9:45 AM CDT Images from [...] needed added in this encounter Care Teams Lint Cleaner Relationship Specialty Start Date End Date Alex Browne MD [address] [place] [address] PCP - General 10/11/18 11/21/22 documented as of this encounter
--- OUTSIDE RECORDS SUMMARY | 2024-06-23 15:46 | XMS_ITS | Encounter Summary ---
Author Organization [facility] Healthcare Address [address] [place] [address] Care Team Providers Care Boat Officer Name Role Phone Franny Dolan Primary Care Provider [phone] Encounter Details Date Type Department Care Team (Late st Contact Info) Description 10/16/2023 Telephone [facility] Medical Group Pulmonology [address] [facility] [address] [place] [address] Radha Stanton, MACHINIST AUTOMOTIVE [address] [place] [address] [address] [place] [address] Social History Tobacco Use Types Packs/Day Years [...] on filedocumented in this encounter Care Teams Boat Officer Relationship Specialty Start Date End Date Franny Dolan PA [address] [place] [address], [place] [address] PCP - General Physician Faculty Neuropsychologist 11/22/22 documented as of this encounter
--- OUTSIDE RECORDS SUMMARY | 2024-06-23 15:46 | XMS_ITS | Encounter Summary ---
Author Organization [facility] Medical Group Address [address] [facility] [address] [place] [address] Care Team Providers Care Bobbin Disker Name Role Phone Alex Browne MD Primary Care Provider [phone] Encounter Details Date Type Department Care Team (Late st Contact Info) Description 08/10/2021 11:15 AM SCAFFOLD SETTER Office Visit [facility] Medical Group Pulmonology & Sleep Clinic [address] [address] Radha Stanton, MOSS GATHERER [address] [facility] [address] [address] NIRANJAN (obstructive sleep apnea) [...] Comments Blood Pressure 142/80 08/10/2021 11:05 AM SCAFFOLD SETTER Pulse 74 08/10/2021 11:05 AM SCAFFOLD SETTER Temperature 36.9 ??C (98.4 ??F) 08/10/2021 11:[address] Respiratory Rate 18 08/10/2021 11:05 AM SCAFFOLD SETTER Oxygen Saturation 95% 08/10/2021 11:05 AM SCAFFOLD SETTER Inhaled Oxygen Concentration - - Weight 120.2 kg (265 lb) 08/10/2021 11:05 AM SCAFFOLD SETTER Height - - Body Mass Index 45.49 10/19/2020 9:41 AM CDT documented in this encounter Progress Notes * Radha Stanton, MOSS GATHERER - 08/10/2021 11:15 AM CST Images from [...] Laterality Date ??? MYRINGOTOMY W/ TUBES ??? RI LAP,SLING OPERATION Laparoscopic Sling Operation For Stress Incontinence - (Added by TW Conv) ??? RI REMOVAL GALLBLADDER Cholecystectomy - (Added by TW Conv) ? ? RI REMOVAL OF TONSILS,<12 Y/O Tonsillectomy - (Added by TW Conv) ??? RI REMOVE UTERUS AFTER Hysterectomy - (Added by TW Conv) ??? RI REVISE MEDIAN N/CARPAL TUNNEL SURG Neuroplasty Decompression [...] CBC ordered prior to her next visit. [employer] provider Plus. The patient also received an order for full set of supplies. 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 The patient will continue to follow up with Oncology for the polycythemia and has a CBC ordered prior to her next visit. [employer] provider Plus. The patient also received an order for full set of supplies. Patient is benefitting from CPAP FOLD SETTER FOLD SETTER documented in this encounter Plan of Treatment Not on file documented as of this encounter Visit Diagnoses Diagnosis NIRANJAN (obstructive sleep apnea)- Primary Obstructive sleep apnea (adult) (pediatric) documented in this encounter Care Teams Bobbin Disker Relationship Specialty Start Date End Date Alex Browne MD [address] [place] [address] PCP - General 10/11/18 11/21/22 documented as of this encounter
--- OUTSIDE RECORDS SUMMARY | 2024-06-23 15:46 | XMS_ITS | Encounter Summary ---
Author Organization [facility] Address [address] [place] [address] Phone Care Team Providers Care Unit Technician Name Role Phone Alex Browne MD Primary Care Provider [phone] Reason for Visit * Reason Comments Earache Facial Pain Encounter Details Date Type Department Care Team (Late st Contact Info) Description 02/20/2020 2:00 PM CDT Office Visit [facility] Otolaryngology [address] [place] [address] Benjamín Delong II, MD [address] [place] [address] Acute recurrent maxillary sinusitis (Primary Dx); [...] 1 added in this encounter Care Teams Unit Technician Relationship Specialty Start Date End Date Alex Browne MD [address] [place] [address] PCP - General 10/11/18 11/21/22 documented as of this encounter
--- OUTSIDE RECORDS SUMMARY | 2024-06-23 15:46 | XMS_ITS | Encounter Summary ---
Author Organization [facility] Medical [facility] Address [address] [facility] [address] [place] [address] Care Team Providers Care Major Gifts Manager Name Role Phone Alex Browne MD Primary Care Provider [phone] Reason for Visit * Reason Comments Trigger Finger Follow-up Pain Follow-up Test Results Encounter Details Date Type Department Care Team (Late st Contact Info) Description 09/24/2020 9:15 AM CDT Office Visit [facility] Medical Group Hand Surgery [facility] [address] [place] [address] Vandana Cheung MD [address] [place] [address] Trigger middle finger of left hand (Primary [...] Primary documented in this encounter Care Teams Major Gifts Manager Relationship Specialty Start Date End Date Alex Browne MD [address] [place] [address] PCP - General 10/11/18 11/21/22 documented as of this encounter
--- OUTSIDE RECORDS SUMMARY | 2024-06-23 15:46 | XMS_ITS | Encounter Summary ---
Author Organization [facility] Address [address] [place] [address] Care Team Providers Care Breeder Hen Service Technician Name Role Phone Alex Browne MD Primary Care Provider [phone] Encounter Details Date Type Department Care Team (Late st Contact Info) Description 09/15/2020 12:02 PM CDT Hospital Encounter [facility] OP INTERIM Vandana Cheung MD [address] [facility] [address] [address] Social History Tobacco Use Types [...] 2 sprays into each nostril daily hydroCHLOROthiaz vseta (HYDRODIURIL) 12.5 mg tablet 12/12/2019 metFORMIN (GLUCOPHAGE) [...] on filedocumented in this encounter Care Teams Breeder Hen Service Technician Relationship Specialty Start Date End Date Alex Browne MD [address] [place] [address] PCP - General 10/11/18 11/21/22 documented as of this encounter
--- OUTSIDE RECORDS SUMMARY | 2024-06-23 15:46 | XMS_ITS | Encounter Summary ---
Author Organization [facility] Healthcare Address [address] [place] [address] Care Team Providers Care Delinquent Account Clerk Name Role Phone Franny Dolan Primary Care Provider [phone] Encounter Details Date Type Department Care Team (Latest Contact Info) Description 12/09/2022 5:47 AM CDT - 12/09/2022 11:59 PM CDT Hospital Encounter [facility] [place] [address] Chronic suppurative otitis media of left ear, [...] read. JESUSITA COLEMAN Comment:Testing performed by : [facility], [address] [facility], [place]., [address] Report Final Report: Moderate Pasteurella multocida Resistance to quinolones, tetracyclines, trimethoprim sulfamethoxazole, and azithromycin has not been noted in Pasturella species and therefore, routine susceptibility testing is not performed. ??Some strains of Pasturella produce a beta-lactamase. (.) JESUSITA COLEMNA Comment:Testing performed by : [facility], [address] [facility] [place] [address] Organism PASTEURELLA MULTOCIDA JESUSITA Drainage (Ear, left) 12/09/2022 9:31 AM CDT 12/10/2022 2:45 PM CDT Narrative JESUSITA - 12/13/2022 6:41 AM CDT AEROBIC AND ANAEROBIC Testing performed by [facility]biology [facility] ([phone]) Specimens submitted from normally sterile body sites [...] - GENERA L ORDERABLES Final Result MARYANABATSHEVA [address] [facility] Department [place] [address] documented in this encounter Visit Diagnoses Diagnosis Chronic suppurative otitis media of left ear, unspecified otitis media location documented in this encounter Care Teams Delinquent Account Clerk Relationship Specialty Start Date End Date Franny Dolan PA [address] [place] [address] PCP - General Physician Lifter Driver 11/22/22 documented as of this encounter
--- OUTSIDE RECORDS SUMMARY | 2024-06-23 15:46 | XMS_ITS | Encounter Summary ---
Author Organization [facility] Address [address] [place] [address] Phone Care Team Providers Care Mail Handler Assistant Name Role Phone Alex Browne MD Primary Care Provider [phone] Reason for Visit * Reason Comments Ear Problem Left ear fluid Encounter Details Date Type Department Care Team (Late st Contact Info) Description 11/29/2021 11:15 AM CDT Office Visit [facility] Otolaryngology [address] [place] [address] Benjamín Delong II, MD [address] [place] [address] Acute otitis media, left (Primary Dx); [...] sulfamethoxazole-trimethoprim (BACTRIM DS) 800-160 mg per tablet yroekjdv-lesywocup-PE (CORTISPORIN) 3.5-10,000-1 mg/mL-unit/mL-% otic suspension Interval History: [...] days Dispense: 20 tablet Refill: 0 ??? ymzbqcmf-hkymvcutb-YD (CORTISPORIN) 3.5-10,000-1 mg/mL-unit/mL-% otic suspension Sig: Administer [...] documented as of this encounter Care Teams Mail Handler Assistant Relationship Specialty Start Date End Date Alex Browne MD [address] [place] [address] PCP - General 10/11/18 11/21/22 documented as of this encounter
--- OUTSIDE RECORDS SUMMARY | 2024-06-23 15:46 | XMS_ITS | Encounter Summary ---
Author Organization [facility] Address [address] [place] [address] Phone Care Team Providers Care Core Composer Machine Tender Name Role Phone Franny Doaln Primary Care Provider [phone] Reason for Visit * Reason Comments Ear Problem Left ear infection Encounter Details Date Type Department Care Team (Late st Contact Info) Description 12/09/2022 9:15 AM CDT Office Visit [facility] Otolaryngology [address] [place] [address] Benjamín Delong II, MD [address] [place] [address] Chronic suppurative otitis media of left [...] of left ear - Primary Relevant Medications kkubbowd-vqcuyamjv-JD (CORTISPORIN) 3.5-10,000-1 mg/mL-unit/mL-% otic suspension Other Relevant [...] Respiratory: No retractions. Procedures: None Medication(s) Ordered hfqtwwxe-nytrsjinr-ME (CORTISPORIN) 3.5-10,000-1 mg/mL-unit/mL-% otic suspension Sig: Administer [...] original read. JESUSITA Comment:Testing performed by : [facility], [address] [place] [address]., [id number] Report Final Report: Moderate Pasteurella multocida Resistance to quinolones, tetracyclines, trimethoprim sulfamethoxazole, and azithromycin has not been noted in Pasturella species and therefore, routine susceptibility testing is not performed. ??Some strains of Pasturella produce a beta-lactamase. (.) JESUSITA Comment:Testing performed by : [facility], [address] [place]., [address] Organism PASTEURELLA MULTOCIDA JESUSITA Drainage (Ear, left) 12/09/2022 9:31 AM CDT 12/10/2022 2:45 PM CDT Narrative JESUSITA - 12/13/2022 6:41 AM CDT AEROBIC AND ANAEROBIC Testing performed by [facility] Microbiology Laboratory ([phone]) Specimens submitted from normally sterile body sites [...] MICROBIOLOGY - GENERA L ORDERABLES Final Result [facility] [address] [facility] Department [place] [address] documented in this encounter Visit Diagnoses Diagnosis Chronic suppurative otitis media of left ear, unspecified otitis media location- Primary Dysfunction of left eustachian tube Chronic suppurative otitis media of left ear, unspecified otitis media location documented in this encounter Discontinued Medications Medication Sig Discontinue Reason Start Date End Da te cyclobenzaprine (FLEXERIL) 10 mg tablet Take 10 mg by mouth Therapy completed 12/09/2022 qoarpayu-wyknoqvsq-OD (CORTISPORIN) 3.5-10,000-1 mg/mL-unit/mL-% otic suspensionIndications: Acute otitis media, left Administer 3 drops into the left ear 3 (three) times a day Therapy completed 11/29/2021 12/09/2022 documented as of this encounter Care Teams Core Composer Machine Tender Relationship Specialty Start Date End Date Franny Dolan PA [address] [place] [address] PCP - General Physician Gm Video 11/22/22 documented as of this encounter
--- OUTSIDE RECORDS SUMMARY | 2024-06-23 15:46 | XMS_ITS | Encounter Summary ---
Author Organization [facility] Address [address] [place] [address] Phone Care Team Providers Care Cold Roll Catcher Name Role Phone Franny Dolan Primary Care Provider [phone] Encounter Details Date Type Department Care Team (Late st Contact Info) Description 10/10/2023 8:45 AM CDT Office Visit [facility] Otolaryngology [address], [address] [place] [address] Benjamín Delong II, MD [address] [place], [place] [id number] Chronic suppurative otitis media of left ear, [...] left ear - Primary Interval History: Kristal Bustos returns for an [...] Primary documented in this encounter Care Teams Cold Roll Catcher Relationship Specialty Start Date End Date Franny Dolan PA [address] [place] [address]. [place] [address] PCP - General Physician Geotechnical Intern 11/22/22 documented as of this encounter
--- OUTSIDE RECORDS SUMMARY | 2024-06-23 15:46 | XMS_ITS | Encounter Summary ---
Author Organization [facility] Healthcare Address [address] [place] [address] Care Team Providers Care Ceo And Founder Name Role Phone Franny Dolan Primary Care Provider [phone] Reason for Visit * Reason Onset Date Comments Orders Only 08/17/2023 Encounter Details Date Type Department Care Team (Late st Contact Info) Description 08/17/2023 Telephone [facility] Medical Group [address] [place] [address] Eric Gonzalez MD [address] [facility] [address] [address] Orders Only Social History Tobacco [...] 10:13 AM CST Both orders faxed to [facility] L PROCESS SERVER * Telephone Encounter - Jen Herbert MA - 08/17/2023 10:10 AM CST ----- Message from Radha Stanton NP sent at 08/17/2023 10:05 AM CIVIL PROCESS SERVER ----- Please increase pressure to 18 cm H20 and have DME troubleshoot, repair, or replace machine due to whistling noise. Dme adapt L PROCESS SERVER documented in this encounter Plan of Treatment Not on file documented as of this encounter Visit Diagnoses Diagnosis NIRANJAN (obstructive sleep apnea)- Primary Obstructive sleep apnea (adult) (pediatric) documented in this encounter Orders General Supply Count Last Ordered Date First Or dered Date CPAP MACHINE WITH HEATED HUMIDIFIER 2 08/17 documented in this encounter Care Teams Ceo And Founder Relationship Specialty Start Date End Date Franny Dolan PA [address] [place] [id number] PCP - General Physician Inlayer Silver 11/22/22 documented as of this encounter
--- OUTSIDE RECORDS SUMMARY | 2024-06-23 15:46 | XMS_ITS | Encounter Summary ---
Author Organization [facility] Healthcare Address [address] [place] [address] Care Team Providers Care Elementary School Music Teacher Name Role Phone Alex Browne MD Primary Care Provider [phone] Franny Dolan Primary Care Provider [phone] Alex Browne MD Primary Care Provider + [phone] Encounter Details Date Type Department Care Team (Late st Contact Info) Description 03/29/2018 8:30 AM CDT - 04/25/2019 11:59 PM CDT Hospital Encounter [facility] OP INTERIM Eric Gonzalez MD [address] [facility] [address] [address] Social History Tobacco Use Types Packs/Day Years [...] on filedocumented in this encounter Care Teams Elementary School Music Teacher Relationship Specialty Start Date End Date Alex Browne MD PCP - General 06/23/17 09/18/18 Franny Dolan PA [address] [place] [address] PCP - General 09/19/18 10/10/18 Alex Browne MD [address] [place] [address] PCP - General 10/11/18 11/21/22 documented as of this encounter
--- OUTSIDE RECORDS SUMMARY | 2024-06-23 15:46 | XMS_ITS | Encounter Summary ---
Author Organization [facility] Healthcare Address [address] [place] [address] Care Team Providers Care Media Marketing Specialist Name Role Phone Franny Dolan Primary Care Provider [phone] Reason for Visit * Reason Comments Follow-up 1 yr f/u Encounter Details Date Type Department Care Team (Late st Contact Info) Description 08/17/2023 9:45 AM SKEIN MERCERIZING MACHINE OPERATOR Office Visit [facility] Medical Group Pulmonary [address] [address] Radha Stanton, SURGICAL NURSE PRACTITIONER [address] [address] NIRANJAN (obstructive sleep apnea) (Primary [...] Comments Blood Pressure 112/72 08/17/2023 9:40 AM SKEIN MERCERIZING MACHINE OPERATOR Pulse 71 08/17/2023 9:40 AM SKEIN MERCERIZING MACHINE OPERATOR Temperature 37.4 ??C (99.3 ??F) 08/17/2023 9:40 AM CS T Respiratory Rate 16 08/17/2023 9:40 AM SKEIN MERCERIZING MACHINE OPERATOR Oxygen Saturation 96% 08/17/2023 9:40 AM SKEIN MERCERIZING MACHINE OPERATOR Inhaled Oxygen Concentration - - Weight 124.3 kg (274 lb) 08/17/2023 9:40 AM SKEIN MERCERIZING MACHINE OPERATOR Height 162.6 cm (5' 4 ) 08/17/2023 9:40 AM SKEIN MERCERIZING MACHINE OPERATOR Body Mass Index 47.03 08/17/2023 9:40 AM SKEIN MERCERIZING MACHINE OPERATOR documented in this encounter Progress Notes * Maximino Radha BillySruthi, SURGICAL NURSE PRACTITIONER - 08/17/2023 9:45 AM CST Images from [...] energy level is low. We discussed products kjvk-cus-jmbtprz for dry mouth. Patient states her CPAP [...] History: Procedure Laterality Date MYRINGOTOMY W/ TUBES [place] CHOLECYSTECTOMY Cholecystectomy - (Added by TW Conv) MS LAPAROSCOPY SLING OPERATION STRESS INCONT Laparoscopic Sling Operation For Stress Incontinence - (Added by TW Conv) MS NEUROPLASTY &/TRANSPOS MEDIAN NRV CARPAL TUNNE Neuroplasty Decompression Median Nerve At Carpal Tunnel - (Added by TW Conv) MS STOT/TOT HYSTERECTOMY AFTER DELIVERY Hysterectomy - (Added by TW Conv) [place] TONSILLECTOMY PRIMARY/SECONDARY <AGE 12 Tonsillectomy - (Added [...] Eric Gonzalez MD at 08/17/2023 5:06 PM SKEIN MERCERIZING MACHINE OPERATOR N MERCERIZING MACHINE OPERATOR N MERCERIZING MACHINE OPERATOR documented in this encounter Miscellaneous Notes * Assessment & Plan Note - Radha Stanton NP - 08/17/2023 10:19 AM SKEIN MERCERIZING MACHINE OPERATOR Associated Problem(s): Chronic fatigue I have ordered labs. The patient is also going to follow-up with her primary care N MERCERIZING MACHINE OPERATOR * Assessment & Plan Note - Radha Stanton NP - 08/17/2023 10:19 AM SKEIN MERCERIZING MACHINE OPERATOR Associated Problem(s): NIRANJAN (obstructive sleep apnea) Due to the snoring and increased hypersomnia, I have increased the pressure to 18 cm water pressure. I did instruct the patient to call into the office if patient needs the CPAP readjusted to 17 cm water pressure. Denied need for supplies. DME adapt. N MERCERIZING MACHINE OPERATOR documented in this encounter Plan of Treatment Not on file documented as of this encounter Procedures Procedure Name Priority Date/Time Associated Diagnosis Comments VITAMIN D 25 HYDROXY Routine 08/17/2023 10:41 AM SKEIN MERCERIZING MACHINE OPERATOR Chronic fatigue History of vitamin D deficiency Hypersomnia Vitamin D deficiency TSH Routine 08/17/2023 10:41 AM SKEIN MERCERIZING MACHINE OPERATOR Chronic fatigue T4, FREE Routine 08/17/2023 10:41 AM SKEIN MERCERIZING MACHINE OPERATOR Chronic fatigue FOLATE Routine 08/17/2023 10:41 AM SKEIN MERCERIZING MACHINE OPERATOR Chronic fatigue VITAMIN B12 Routine 08/17/2023 10:41 AM SKEIN MERCERIZING MACHINE OPERATOR Chronic fatigue documented in this encounter Results * T4, free (08/17/2023 10:41 AM SKEIN MERCERIZING MACHINE OPERATOR) Pathologist [facility] Free T4 1.3 0.8 - 1.8 ng/dL [facility] Blood 08/17/2023 10:4 1 AM SKEIN MERCERIZING MACHINE OPERATOR 08/17/2023 10:41 AM SKEIN MERCERIZING MACHINE OPERATOR Radha Stanton SURGICAL NURSE PRACTITIONER LAB BLOOD ORDERABLES Final Result [facility] [address] [place] [address] * TSH (08/17/2023 10:41 AM SKEIN MERCERIZING MACHINE OPERATOR) Pathologist [facility] TSH 1.01 0.40 - 4.50 mIU/L [facility] Blood 08/17/2023 10:4 1 AM SKEIN MERCERIZING MACHINE OPERATOR 08/17/2023 10:41 AM SKEIN MERCERIZING MACHINE OPERATOR Radha Stanton SURGICAL NURSE PRACTITIONER LAB BLOOD ORDERABLES Final Result Performing Organization Address [facility]/ZIP Co de Phone Number [facility] [address] [place] [address] * Vitamin B12 (08/17/2023 10:41 AM SKEIN MERCERIZING MACHINE OPERATOR) Pathologist [facility] Vitamin B12 679 200 - 1,100 pg/mL [facility] Blood 08/17/2023 10:4 1 AM SKEIN MERCERIZING MACHINE OPERATOR 08/17/2023 10:41 AM SKEIN MERCERIZING MACHINE OPERATOR Radha Stanton SURGICAL NURSE PRACTITIONER LAB BLOOD ORDERABLES Final Result Performing Organization Address City/[facility] Co de Phone Number [facility] [address] [place] [address] * Vitamin D 25 hydroxy (08/17/2023 10:41 AM SKEIN MERCERIZING MACHINE OPERATOR) Pathologist [facility] Vitamin D 25-OH 37 30 - 100 ng/mL [facility] Comment: Vitamin D Status ? 25-OH Vitamin D: Deficiency: ?<20 ng/mL Insufficiency: ? 20 - 29 ng/mL Optimal: ? > or = 30 ng/mL For 25-OH Vitamin D testing on patients on D2-supplementation and patients for whom quantitation of D2 and D3 fractions is required, the [facility](TM) 25-OH VIT D, (D2,D3), LC/MS/MS is recommended: order code 89634 (patients >2yrs). See Note 1 Note 1 For additional information, please refer to http://education.[employer]/faq/OZL803 (This link is being provided for informational/ educational purposes only.) Blood 08/17/2023 10:4 1 AM SKEIN MERCERIZING MACHINE OPERATOR 08/17/2023 10:41 AM SKEIN MERCERIZING MACHINE OPERATOR us Radha Stanton SURGICAL NURSE PRACTITIONER LAB BLOOD ORDERABLES Final Result Performing Organization Address City/State/[facility] Co vt Phone Number [facility] [address] [place] [address] * Folate (08/17/2023 10:41 AM SKEIN MERCERIZING MACHINE OPERATOR) Pathologist [facility] Folate, Serum >24.0 ng/mL [facility] Comment: ? Reference Range ? Low: ? <3.4 ? Borderline: ?3.4-5.4 ? Normal: ?>5.4 Blood 08/17/2023 10:4 1 AM SKEIN MERCERIZING MACHINE OPERATOR 08/17/2023 10:41 AM SKEIN MERCERIZING MACHINE OPERATOR Radha Stanton SURGICAL NURSE PRACTITIONER LAB BLOOD ORDERABLES Final Result [facility] [address] [place] [address] documented in this encounter Visit Diagnoses Diagnosis [...] 04/03/2023 added in this encounter Care Teams Media Marketing Specialist Relationship Specialty Start Date End Date Franny Dolan PA [address] [place] [address] PCP - General Physician Vineyard Worker 11/22/22 documented as of this encounter
--- OUTSIDE RECORDS SUMMARY | 2024-06-23 15:46 | XMS_ITS | Encounter Summary ---
Author Organization [facility] Address [address] [place] [address] Phone Care Team Providers Care Washer Off Name Role Phone Alex Browne MD Primary Care Provider [phone] Reason for Visit * Reason Comments Otitis Media Left ear Encounter Details Date Type Department Care Team (Late st Contact Info) Description 08/30/2021 3:00 PM SURVIVAL SPECIALIST Office Visit [facility] Otolaryngology [address] [place] [address] Benjamín Delong II, MD [address] [place] [address] Acute otitis media, left (Primary Dx); [...] - Respiratory Rate 17 08/30/2021 2:55 PM SURVIVAL SPECIALIST Oxygen Saturation - - Inhaled Oxygen Concentration - - Weight 121.1 kg (267 lb) 08/30/2021 2:55 PM SURVIVAL SPECIALIST Height 162.6 cm (5' 4 ) 08/30/2021 2:55 PM SURVIVAL SPECIALIST Body Mass Index 45.83 08/30/2021 2:55 PM SURVIVAL SPECIALIST documented in this encounter Ordered Prescriptions Prescription [...] and small grammatical errors may be encountered. IVAL SPECIALIST documented in this encounter Plan of Treatment [...] 3 added in this encounter Care Teams Washer Off Relationship Specialty Start Date End Date Alex Browne MD [address] [place] [address] PCP - General 10/11/18 11/21/22 documented as of this encounter
--- OUTSIDE RECORDS SUMMARY | 2024-06-23 15:46 | XMS_ITS | Encounter Summary ---
Author Organization [facility] Healthcare Address [address] [place] [address] Care Team Providers Care Payment Processor Name Role Phone Franny Dolan Primary Care Provider [phone] Encounter Details Date Type Department Care Team (Late st Contact Info) Description 11/02/2023 11:15 AM CDT Office Visit [facility] Medical Group Pulmonary [address] [place] [address] Eric Gonzalez MD [address] [facility] [address] [address] NIRANJAN (obstructive sleep apnea) (Primary Dx); Chronic [...] History: Procedure Laterality Date MYRINGOTOMY W/ TUBES [place] CHOLECYSTECTOMY Cholecystectomy - (Added by Conv) [place] LAPAROSCOPY SLING OPERATION STRESS INCONT Laparoscopic Sling Operation For Stress Incontinence - (Added by Conv) [place] NEUROPLASTY &/TRANSPOS MEDIAN NRV CARPAL TUNNE Neuroplasty Decompression Median Nerve At Carpal Tunnel - (Added by Conv) [place] STOT/TOT HYSTERECTOMY AFTER DELIVERY Hysterectomy - (Added by Conv) [place] TONSILLECTOMY PRIMARY/SECONDARY <AGE 12 Tonsillectomy - (Added [...] fatigue documented in this encounter Care Teams Payment Processor Relationship Specialty Start Date End Date Franny Dolan PA [address] [place] [address] PCP - General Physician Hydraulic Dredge Operator 11/22/22 documented as of this encounter
--- OUTSIDE RECORDS SUMMARY | 2024-06-23 15:46 | XMS_ITS | Encounter Summary ---
Author Organization [facility] Address [address] [place] [address] Phone Care Team Providers Care Boarding House Cook Name Role Phone Franny Dolan Primary Care Provider [phone] Reason for Visit * Reason Onset Date Comments Test Results 12/12/2022 Culture Encounter Details Date Type Department Care Team (Late st Contact Info) Description 12/12/2022 Telephone [facility] Otolaryngology [address] [place] [address] Benjamín Delong II, MD [address] [place] [address] Test Results (Culture) Social History Tobacco [...] infection documented in this encounter Care Teams Boarding House Cook Relationship Specialty Start Date End Date Franny Dolan PA [address] [place] [address] PCP - General Physician Varnish Filterer 11/22/22 documented as of this encounter
--- OUTSIDE RECORDS SUMMARY | 2024-06-23 15:46 | XMS_ITS | Encounter Summary ---
Author Organization [facility] Address [address] [place] [address] Care Team Providers Care Rotating Equipment Specialist Name Role Phone Alex Browne MD Primary Care Provider +1- [phone] Encounter Details Date Type Department Care Team (Latest Contact Info) Description 08/30/2021 6:40 PM AUDITING CLERK - 08/30/2021 11:59 PM AUDITING CLERK Hospital Encounter [facility] [address] [place] [address] Discharge Disposition: Discharge to home or self [...] AND GRAM STAIN Routine 08/30/2021 5:40 PM AUDITING CLERK documented in this encounter Results * (ABNORMAL) Aerobic and anaerobic culture and gram stain Wound Ear, left (08/30/2021 5:40 PM AUDITING CLERK) Direct Specimen Exam Stain: No polymorphonuclear leukocytes seen. Abundant Gram Positive Cocci Moderate Gram Positive Bacilli JESUSITA COLEMAN Comment:Testing performed by : [facility], [address] [place] [address], [place]., [address] Report Final Report: Abundant Staphylococcus aureus Methicillin susceptible (MSSA) by penicillin binding protein 2a (PBP2a) testing. Moderate Mixed aerobic and anaerobic microorganisms (.) JESUSITA COLEMAN Comment:Testing performed by : [facility], [address] [facility], [place]., [address] Organism STAPHYLOCOCCUS AUREUS JESUSITA Organism MIXED AEROBIC AND ANAEROBIC MICROORGANISMS JESUSITA Wound (Ear, left) 08/30/2021 5:40 PM AUDITING CLERK 08/31/2021 9:46 PM AUDITING CLERK Narrative JESUSITA COLEMAN - 09/09/2021 2:59 PM CDT Specimen received on an ESwab. Collection date/time has been modified to:08/30/2021 17:40. Previous Collection date/time: 08/31/2021 17:40. Testing performed by [facility] ([phone]) Specimens submitted from normally sterile body sites [...] - GENERA L ORDERABLES Final Result JESUSITA [address] [facility] Department [place] [address] documented in this encounter Visit Diagnoses Not on filedocumented in this encounter Care Teams Rotating Equipment Specialist Relationship Specialty Start Date End Date Alex Browne MD [address] [place] [address] PCP - General 10/11/18 11/21/22 documented as of this encounter
--- OUTSIDE RECORDS SUMMARY | 2024-06-23 15:46 | XMS_ITS | Encounter Summary ---
Author Organization [facility] Address [address] [place] [address] Phone Care Team Providers Care Carroter Name Role Phone Alex Browne MD Primary Care Provider [phone]- [phone] Reason for Visit * Reason Onset Date Comments Discuss Test Results 09/03/2021 Cuture Encounter Details Date Type Department Care Team (Late st Contact Info) Description 09/03/2021 Telephone [facility] Otolaryngology [address] [place] [phone] Raina Wolff Discuss Test Results (Cuture) [...] us back for her results and recommendation. UNITY ACTION WORKER * Telephone Encounter - Raina Wolff - 09/03/2021 1:06 PM CST ----- Message from Benjamín Delong II, MD sent at 09/03/2021 11:45 AM COMMUNITY ACTION WORKER ----- Regarding: Test Results Please call the patient and inform them of the following test results and instructions: Her ear culture shows methicillin sensitive Staph aureus. She should be started on clindamycin 300 mg 3 times a day for 2 weeks. She should continue the Ciprodex drops during that time as well. UNITY ACTION WORKER documented in this encounter Plan of Treatment Not on file documented as of this encounter Visit Diagnoses Diagnosis Acute recurrent maxillary sinusitis- Primary Acute otitis media, left Unspecified otitis media documented in this encounter Care Teams Carroter Relationship Specialty Start Date End Date Aelx Browne MD [address] [place] [address] PCP - General 10/11/18 11/21/22 documented as of this encounter
--- OUTSIDE RECORDS SUMMARY | 2024-06-23 15:46 | XMS_ITS | Encounter Summary ---
Author Organization [facility] Healthcare Address [address] [place] [address] Care Team Providers Care Mechanical Adjuster Name Role Phone Alex Browne MD Primary Care Provider [phone]- [phone] Encounter Details Date Type Department Care Team (Late st Contact Info) Description 10/21/2019 9:47 AM CDT - 10/23/2020 11:59 PM CDT Hospital Encounter [facility] INTERIM Eric Gonzalez MD [address] [facility] [address] [address] Social History Tobacco Use Types Packs/Day Years [...] on filedocumented in this encounter Care Teams Mechanical Adjuster Relationship Specialty Start Date End Date Alex Browne MD [address] [place] [address] PCP - General 10/11/18 11/21/22 documented as of this encounter
--- OUTSIDE RECORDS SUMMARY | 2024-06-23 15:47 | XMS_ITS | Encounter Summary ---
Author Organization [facility] Healthcare Address [address] [place] [address] Care Team Providers Care Industrial Hygenist Name Role Phone Franny Dolan Primary Care Provider [phone] Encounter Details Date Type Department Care Team (Late st Contact Info) Description 09/19/2018 10:36 AM CDT - 09/19/2018 11:59 PM CDT Hospital Encounter [facility] INTERIM Franny Dolan PA [address] [place] [address] Discharge Disposition: Discharge to home or self [...] PM T: ??09/19/2018 1:06 PM Report ID: [id number] Reading Location: ??[id number] [EOD] Narrative 09/19/2018 1:09 PM CDT EXAM [...] by Loy Bermeo WP: WP Report ID: [id number] Reading Location: [id number] [EOD] Franny YOUNG IMG XR PROCEDURES Final [...] PM T: ??09/19/2018 1:10 PM Report ID: [id number] Reading Location: ??[id number] [EOD] Narrative 09/19/2018 1:13 PM CDT EXAM [...] Jonny Sullivan M.D. NC: HUGO Report ID: [id number] Reading Location: [id number] [EOD] Franny YOUNG IMG XR PROCEDURES Final [...] PM T: ??09/19/2018 1:10 PM Report ID: [id number] Reading Location: ??[id number] [EOD] Narrative 09/19/2018 1:14 PM CDT EXAM [...] signed by Jonny ARIAS: HUGO Report ID: [id number] Reading Location: [id number] [EOD] Franny YOUNG IMG XR PROCEDURES Final [...] PM T: ??09/19/2018 1:10 PM Report ID: [id number] Reading Location: ??[id number] [EOD] Narrative 09/19/2018 1:13 PM CDT EXAM [...] Jonny Sullivan M.D. NC: HUGO Report ID: [id number] Reading Location: [id number] [EOD] Franny Dolan HECTOR IMG XR PROCEDURES [...] PM T: ??09/19/2018 1:09 PM Report ID: [id number] Reading Location: ??[id number] [EOD] Narrative 09/19/2018 1:12 PM CDT EXAM [...] by Loy Bermeo WP: WP Report ID: [id number] Reading Location: [place] [address] [EOD] Franny YOUNG IMG XR PROCEDURES Final Result documented in this encounter Visit Diagnoses Not on filedocumented in this encounter Care Teams Industrial Hygenist Relationship Specialty Start Date End Date Franny Dolan PA [address] [place] [id number] PCP - General 09/19/18 10/10/18 documented as of this encounter
--- OUTSIDE RECORDS SUMMARY | 2024-06-23 15:47 | XMS_ITS | Encounter Summary ---
Author Organization [facility] Healthcare Address [address] [place] [address] Care Team Providers Care Cellophane Tester Name Role Phone Unknown, Notinfile Primary Care Provider Unavail able Encounter Details Date Type Department Care Team (Latest Contact Info) Description 04/27/2017 8:52 AM CDT - 04/27/2017 11:59 PM CDT Hospital Encounter [facility] OP INTERIM [phone] Betsy Molina, MANAGER BATTERY [address] [facility] [address] [place] [address] Discharge Disposition: Discharge to home or self [...] * SAPNA screen (04/27/2017 8:52 AM CDT) [facility] SAPNA Negative Negative [facility] Comment: Interpretive Data Normal range for Sapna Qualitative Antibody = Negative. 1. ??SAPNA titers are performed on all positive qualitative [...] ORDERABLES Fi nal Result Performing Organization Address [facility] Co de Phone Number [facility] [place] [address] * Cyclic citrul peptide antibody, IgG (04/27/2017 8:52 AM CDT) [facility] CCP Ab 0.7 <=2.9 units/mL [facility] Comment: Interpretive data Negative: <3 units/mL Positive: > or equal to 3 units/mL Current interpretive data was last revised on 2016. Blood specimen (specimen) 04/27/2017 8:52 AM CDT 04/27/2017 12:02 PM CDT Betsy Molina NP LAB BLOOD ORDERABLES Fi nal Result Performing Organization Address [facility] Co de Phone Number [facility] [place] [address] * (ABNORMAL) Antithrombin (04/27/2017 8:52 AM CDT) [facility] Rheumatoid factor, quant <10.0(L) 0.1 - 15.0 IUnits/mL [facility] Blood specimen (specimen) 04/27/2017 8:52 AM CDT 04/27/2017 12:02 PM CDT Betsy Molina MANAGER BATTERY LAB BLOOD ORDERABLES Fi nal Result Performing Organization Address City/[facility]/ZIP Co de Phone Number [facility] Department [place] [address] * Erythrocyte sedimentation rate (04/27/2017 8:52 AM CDT) [facility] Erythrocyte sedimentation rate 7 0 - 35 mm/H [facility] Blood specimen (specimen) 04/27/2017 8:52 AM CDT 04/27/2017 12:02 PM CDT Betsy Molina NP LAB BLOOD ORDERABLES Fi nal Result Performing Organization Address [facility] de Phone Number [facility] Department [place] [address] * DISCHARGE LABORATORY CUMULATIVE REPORT (04/27/2017 12:00 AM CDT) Narrative 04/27/2017 12:00 AM CDT Ordered by an unspecified provider. Historical Provider LAB BLOOD ORDERABLES Re l Result documented in this encounter Visit Diagnoses Not on filedocumented in this encounter Care Teams Cellophane Tester Relationship Specialty Start Date End Date Unknown, Notinfile PCP - General 04/27/17 05/03/17 documented as of this encounter
--- OUTSIDE RECORDS SUMMARY | 2024-06-23 15:47 | XMS_ITS | Encounter Summary ---
Author Organization [facility] Healthcare Address [address] [place] [address] Care Team Providers Care Automatic Edger Name Role Phone Alex Browne MD Primary Care Provider [phone]- [phone] Encounter Details Date Type Department Care Team (Late st Contact Info) Description 05/04/2017 8:59 AM PRODUCT COMMUNICATIONS MANAGER Hospital Encounter [facility] OP Alex Browne MD [address] [place] [address] Essential (primary) hypertension; Morbid (severe) obesity [...] Comments LIPID PANEL Routine 05/04/2017 9:05 AM PRODUCT COMMUNICATIONS MANAGER COMPREHENSIVE METABOLIC PANEL Routine 05/04/2017 9:05 AM PRODUCT COMMUNICATIONS MANAGER documented in this encounter Results * Lipid panel (05/04/2017 9:05 AM PRODUCT COMMUNICATIONS MANAGER) Triglycerides 177 0 - 199 mg/dL Comment:12 [...] for developing heart disease. 05/04/2017 9:05 AM PRODUCT COMMUNICATIONS MANAGER 05/04/2017 9:08 AM PRODUCT COMMUNICATIONS MANAGER Alex Browne MD LAB BLOOD ORDERABLES Final Result [facility] HISTORICAL RESULTS * (ABNORMAL) Comprehensive metabolic panel (05/04/2017 9:05 AM PRODUCT COMMUNICATIONS MANAGER) Sodium 137 135 - 145 mmol/L Potassium [...] Disease Stage 78 mL/MIN 05/04/2017 9:55 AM [employer] HISTORICAL RESULTS Comment: NOTE; ??The GFR is [...] 8.8 - 10.2 mg/dL 05/04/2017 9:55 AM [employer] HISTORICAL RESULTS Total Protein 7.1 6.4 - 8.3 g/dL 05/04/2017 9:55 AM [employer] HISTORICAL RESULTS Albumin 4.1 3.5 - 5.2 g/dL 05/04/2017 9:55 AM [employer] HISTORICAL RESULTS Globulin 3.0 2.3 - 3.5 gm/dL 05/04/2017 9:55 AM [employer] HISTORICAL RESULTS Albumin/Globulin Ratio 1.4 1.1 - 1.8 05/04/2017 9:55 AM [employer] HISTORICAL RESULTS Total Bilirubin 0.6 0.0 - 1.2 mg/dL 05/04/2017 9:55 AM [employer] HISTORICAL RESULTS AST 30 0 - 32 U/L 05/04/2017 9:55 AM PRODUCT COMMUNICATIONS MANAGER [employer] HISTORICAL RESULTS ALT 43(H) 0 - 33 U/L 05/04/2017 9:55 AM PRODUCT COMMUNICATIONS MANAGER [facility] [employer] HISTORICAL RESULTS Alkaline Phosphatase 113(H) 35 - 104 U/L 05/04/2017 9:55 AM PRODUCT COMMUNICATIONS MANAGER [facility] [employer] HISTORICAL RESULTS 05/04/2017 9:05 AM PRODUCT COMMUNICATIONS MANAGER 05/04/2017 9:08 AM PRODUCT COMMUNICATIONS MANAGER us Alex Browne MD LAB BLOOD ORDERABLES Final Result [facility] [employer] HISTORICAL RESULTS documented in this encounter Visit Diagnoses Diagnosis Essential (primary) hypertension Unspecified essential hypertension Morbid (severe) obesity due to excess calories (HCC) Encounter for screening for cardiovascular disorders documented in this encounter Care Teams Automatic Edger Relationship Specialty Start Date End Date Alex Browne MD PCP - General 05/04/17 06/01/17 documented as of this encounter
--- OUTSIDE RECORDS SUMMARY | 2024-06-23 15:47 | XMS_ITS | Encounter Summary ---
Author Organization [facility] Address [address] [place] [address] Care Team Providers Care Field Sales Consultant Name Role Phone Alex Browne MD Primary Care Provider [phone]- [phone] Encounter Details Date Type Department Care Team (Late st Contact Info) Description 10/11/2018 6:51 AM CDT - 10/11/2018 9:14 AM CDT Hospital Encounter [facility] INTERIM Alex Browne MD [address] [place] [address] Social History Tobacco Use Types Packs/Day Years [...] 7:03 AM CDT) HepBsAg NONREACT NONREACTIVE [facility] Comment: [employer] Centaur[employer] using THUY (chemiluminescent immunoassay) technology. NONREACTIVE: IgM antibodies to Hepatitis B Surface antigen not detected. REACTIVE: IgM antibodies to Hepatitis B Surface antigen detected. Reactive results will be confirmed by neutralization testing. HBsAb qn <3.10 mIU/mL [facility] Comment: [employer] CentaurXP using THUY (chemiluminescent immunoassay) technology. 9.99 IU/L or less.....NONREACTIVE: IgM antibodies to Hepatitis B Surface antibody are not detected. 10.00 IU/L or greater..REACTIVE: IgM antibodies to Hepatitis B Surface antibody are detected. Hep B core IgM NONREACT NONREACTIVE [facility] Comment: [employer] CentaurXP using THUY (chemiluminescent immunoassay) technology. NONREACTIVE: IgM antibodies to Hepatitis B Core antigen not detected. EQUIVOCAL: IgM antibodies to Hepatitis B Core antigen may or may not be present. Obtain a ??new specimen and retest. REACTIVE: IgM antibodies to Hepatitis B Core antigen detected. Hep A IgM NONREACT NONREACTIVE [facility] Comment: [employer] CentaurXP using THUY (chemiluminescent immunoassay) technology. NONREACTIVE: IgM antibodies to Hepatitis A not detected. This does not exclude possibility of exposure to Hepatitis A or early acute infection. EQUIVOCAL:IgM antibodies to Hepatitis A may or may not be present. Suggest recollection and retest. REACTIVE: Antibodies to Hepatitis A detected. Hep C Ab NONREACT NONREACTIVE [facility] Comment: [employer] CentaurXP using THUY (chemiluminescent [...] MICROBIOLOGY - GENERAL ORDERABLES Final Result [facility] [address] [place], [place] [address] [phone] * (ABNORMAL) ALT (10/11/2018 7:03 AM CDT) ALT 64(H) 0 - 33 U/L [facility] 10/11/2018 7:03 AM CDT 10/11/2018 7:09 AM CDT Narrative Resulting Agency Comment CLI Alex Browne MD LAB BLOOD ORDERABLES Final Result Performing Organization Address City/[facility]/ZIP Co de Phone Number [address] [address], [facility] [phone] * (ABNORMAL) AST (10/11/2018 7:03 AM CDT) AST 39(H) 0 - 32 U/L [facility] 10/11/2018 7:03 AM CDT 10/11/2018 7:09 AM CDT Narrative Resulting Agency Comment CLI Alex Browne MD LAB BLOOD ORDERABLES Final Result Performing Organization Address City/[facility]/ZIP Co de Phone Number [address] [address], [facility] [phone] documented in this encounter Visit Diagnoses Not on filedocumented in this encounter Care Teams Field Sales Consultant Relationship Specialty Start Date End Date Alex Browne MD [address] [place] [address] PCP - General 10/11/18 11/21/22 documented as of this encounter
--- OUTSIDE RECORDS SUMMARY | 2024-06-23 15:47 | XMS_ITS | Encounter Summary ---
Author Organization [facility] Address [address] [place] [address] Care Team Providers Care Race Steward Name Role Phone Alex Browne MD Primary Care Provider +1- [phone] Encounter Details Date Type Department Care Team (Late st Contact Info) Description 04/10/2018 8:41 AM CDT Hospital Encounter [facility] Alex Browne MD [address] [place] [address] Abnormal levels of other serum enzymes; [...] Albumin (PEP) 4.18 3.75 - 5.01 g/dL Fiwqo-8-Bhnzvrqnb 0.24 0.19 - 0.46 g/dL Kafdy-6-Upiekknba 0.77 0.48 - 1.05 g/dL Beta Globulins 0.78 0.48 - 1.10 g/dL Gamma Globulins 1.23 0.62 - 1.51 g/dL Total protein SPE 7.20 6.00 - 8.30 g/dL SPE Interp See Note Comment: Normal SPEP pattern. ??Immunofixation electrophoresis (STUART) ?? is a more sensitive technique for the identification of ?? small M-proteins. ?? SPE EER See Note Comment: Access [employer] Enhanced Report using either link below: ?? -Direct access: ?? [email or web address] ?? -Enter Username, Password: [email or web address] ?? Username: [email or web address] ?? Password: [email or web address] ?? Performed by [employer], ?? [address] [place] [address],[place] [address] ?? [email or web address], Silver Ayon MD, Lab. Director ?? 04/10/2018 9:00 AM CDT 04/10/2018 9:20 AM CDT us Alex Browne MD LAB BLOOD ORDERABLES Final Result [facility] HISTORICAL RESULTS * Thyroid Panel (04/10/2018 9:00 AM CDT) TSH 0.50 0.27 - 4.20 uIU/mL Free T4 1.27 0.93 - 1.70 ng/dL 04/10/2018 9:00 AM CDT 04/10/2018 9:20 AM CDT us Alex Browne MD LAB BLOOD ORDERABLES Final Result [facility] HISTORICAL RESULTS documented in this encounter Visit Diagnoses Diagnosis Abnormal levels of other serum enzymes Essential (primary) hypertension Unspecified essential hypertension Hypothyroidism Unspecified hypothyroidism documented in this encounter Care Teams Race Steward Relationship Specialty Start Date End Date Alex Browne MD PCP - General 06/23/17 09/18/18 documented as of this encounter
--- OUTSIDE RECORDS SUMMARY | 2024-06-23 15:47 | XMS_ITS | Encounter Summary ---
Author Organization [facility] Healthcare Address [address] [place] [address] Care Team Providers Care Harness Builder Name Role Phone Alex Browne MD Primary Care Provider +1- [phone] Encounter Details Date Type Department Care Team (Late st Contact Info) Description 07/28/2017 6:59 AM COMPUTER REPAIR ENGINEER Hospital Encounter [facility] OP Alex Browne MD [address] [place] [address] Pneumonia Social History Tobacco Use Types [...] WITH AUTO DIFFERENTIAL Routine 07/28/2017 7:18 AM COMPUTER REPAIR ENGINEER documented in this encounter Results * (ABNORMAL) CBC with auto differential (07/28/2017 7:18 AM COMPUTER REPAIR ENGINEER) WBC 5.9 3.5 - 10.5 x10 3/ul 07/28/2017 7:25 AM COMPUTER REPAIR ENGINEER [facility] HISTORICAL RESULTS Comment:New Reference Range in use 07/13/17. RBC 5.54(H) 3.76 - 4.80 x10 6/ul 07/28/2017 7:25 AM COMPUTER REPAIR ENGINEER [facility] HISTORICAL RESULTS Hemoglobin 15.9(H) 11.0 - 15.0 g/dL 07/28/2017 7:25 AM [employer] HISTORICAL RESULTS Hct 47.9(H) 33.0 - 43.0 % 07/28/2017 7:25 AM COMPUTER REPAIR ENGINEER [employer] HISTORICAL RESULTS MCV 86.5 80.0 - 97.0 fl 07/28/2017 7:25 AM COMPUTER REPAIR ENGINEER [employer] HISTORICAL RESULTS MCH 28.7 27.0 - 31.2 pg 07/28/2017 7:25 AM [employer] HISTORICAL RESULTS MCHC 33.2 31.8 - 35.4 g/dl 07/28/2017 7:25 AM [employer] HISTORICAL RESULTS RDW 13.3 11.6 - 14.8 % 07/28/2017 7:25 AM [employer] HISTORICAL RESULTS Plt Count 262 150 - 450 X10 3/ul 07/28/2017 7:25 AM [employer] HISTORICAL RESULTS Comment:New Reference Range in use 07/13/17. MPV 9.1 7.4 - 10.4 fl 07/28/2017 7:25 AM [employer] HISTORICAL RESULTS Neut % 68.2 37.0 - 85.0 % 07/28/2017 7:25 AM [employer] HISTORICAL RESULTS Immature Gran % 0.7 0.0 - 3.0 % 07/28/2017 7:25 AM [employer] HISTORICAL RESULTS Lymph % 21.0 5.0 - 45.0 % 07/28/2017 7:25 AM [employer] HISTORICAL RESULTS Collier % 8.0 3.0 - 15.0 % 07/28/2017 7:25 AM [employer] HISTORICAL RESULTS Eos % 1.2 0.0 - 7.0 % 07/28/2017 7:25 AM [employer] HISTORICAL RESULTS Baso % 0.9 0.0 - 2.0 % 07/28/2017 7:25 AM [employer] HISTORICAL RESULTS Absolute Neuts (auto) 4.0 1.7 - 8.7 x10 3/ul 07/28/2017 7:25 AM [employer] HISTORICAL RESULTS Immature Gran # 0.0 0.0 - 0.3 x10 3/ul 07/28/2017 7:25 AM [employer] HISTORICAL RESULTS Absolute Lymphs (auto) 1.2 0.2 - 4.6 x10 3/ul 07/28/2017 7:25 AM COMPUTER REPAIR ENGINEER [facility] [employer] HISTORICAL RESULTS Absolute Monos (auto) 0.5 0.1 - 1.5 x10 3/ul 07/28/2017 7:25 AM COMPUTER REPAIR ENGINEER [facility] [employer] [facility] HISTORICAL RESULTS Absolute Eos (auto) 0.1 0.0 - 0.7 x10 3/ul 07/28/2017 7:25 AM COMPUTER REPAIR ENGINEER [facility] HISTORICAL RESULTS Absolute Basos (auto) 0.1 0.0 - 0.2 x10 3/ul 07/28/2017 7:25 AM COMPUTER REPAIR ENGINEER [facility] HISTORICAL RESULTS Nucleat RBC Rel Count 0.0 0 - 3 #/100WBC 07/28/2017 7:25 AM COMPUTER REPAIR ENGINEER [facility] [employer] [facility] HISTORICAL RESULTS Absolute Nucleated RBC 0.00 x10 3/ul 07/28/2017 7:25 AM COMPUTER REPAIR ENGINEER [facility] [employer] [facility] HISTORICAL RESULTS Absolute Neutrophils 4000 200 - 8000 /ul 07/28/2017 7:25 AM COMPUTER REPAIR ENGINEER [facility] [employer] [facility] HISTORICAL RESULTS 07/28/2017 7:18 AM COMPUTER REPAIR ENGINEER 07/28/2017 7:23 AM COMPUTER REPAIR ENGINEER us Alex Browne MD LAB BLOOD ORDERABLES Final Result [facility] HISTORICAL RESULTS documented in this encounter Visit Diagnoses Diagnosis Pneumonia Pneumonia, organism unspecified documented in this encounter Care Teams Harness Builder Relationship Specialty Start Date End Date Alex Browne MD PCP - General 06/23/17 09/18/18 documented as of this encounter
--- OUTSIDE RECORDS SUMMARY | 2024-06-23 15:47 | XMS_ITS | Encounter Summary ---
Author Organization [facility] Address [address] [place] [address] Care Team Providers Care Inspector Tool Name Role Phone Alex Browne MD Primary Care Provider +1- [phone] Encounter Details Date Type Department Care Team (Late st Contact Info) Description 01/29/2018 6:44 AM CDT Hospital Encounter [facility] Alex Browne MD [address] [place] [id number] Hypothyroidism; Mixed hyperlipidemia; Essential (primary) hypertension; [...] 10.5 x10 3/ul 01/29/2018 7:27 AM CDT [facility] [employer] HISTORICAL RESULTS RBC 5.53(H) 3.76 - 4.80 x10 6/ul 01/29/2018 7:27 AM CDT [facility] [employer] HISTORICAL RESULTS Hemoglobin 16.2(H) 11.0 - 15.0 g/dL 01/29/2018 7:27 AM CDT [facility] HISTORICAL RESULTS Hct 48.5(H) 33.0 - 43.0 % 01/29/2018 7:27 AM CDT [facility] HISTORICAL RESULTS MCV 87.7 80.0 - 97.0 fl 01/29/2018 7:27 AM CDT [facility] HISTORICAL RESULTS MCH 29.3 27.0 - 31.2 pg 01/29/2018 7:27 AM CDT [facility] HISTORICAL RESULTS MCHC 33.4 31.8 - 35.4 g/dl 01/29/2018 7:27 AM CDT [employer] HISTORICAL RESULTS RDW 13.5 11.6 - 14.8 % 01/29/2018 7:27 AM CDT [employer] HISTORICAL RESULTS Plt Count 243 150 - 450 X10 3/ul 01/29/2018 7:27 AM CDT [employer] HISTORICAL RESULTS MPV 9.6 7.4 - 10.4 fl 01/29/2018 7:27 AM CDT [facility] HISTORICAL RESULTS Neut % 68.1 37.0 - 85.0 % 01/29/2018 7:27 AM CDT [facility] HISTORICAL RESULTS Immature Gran % 0.5 0.0 - 3.0 % 01/29/2018 7:27 AM CDT [employer] HISTORICAL RESULTS Lymph % 21.3 5.0 - 45.0 % 01/29/2018 7:27 AM CDT [employer] HISTORICAL RESULTS Snyder % 8.4 3.0 - 15.0 % 01/29/2018 7:27 AM CDT [employer] HISTORICAL RESULTS Eos % 1.0 0.0 - [...] Browne MD LAB BLOOD ORDERABLES Final Result [facility] HISTORICAL RESULTS * (ABNORMAL) Thyroid Panel (01/29/2018 7:12 AM CDT) TSH 4.65(H) 0.27 - 4.20 uIU/mL Free T4 1.30 0.93 - 1.70 ng/dL 01/29/2018 7:59 AM CDT [facility] HISTORICAL RESULTS 01/29/2018 7:12 AM CDT 01/29/2018 7:15 AM CDT Alex Browne MD LAB BLOOD ORDERABLES Final Result [facility] HISTORICAL RESULTS * Vitamin D 25 hydroxy (01/29/2018 7:12 AM CDT) 25-OH Vitamin D Total 39 30 - 80 ng/mL 01/29/2018 11:29 AM CDT [facility] HISTORICAL RESULTS 01/29/2018 7:1 2 AM CDT 01/29/2018 7:15 AM CDT Alex Browne MD LAB BLOOD ORDERABLES Final Result Performing Organization Address City/[facility]/ZIP Co de Phone Number [facility] HISTORICAL RESULTS * Lipid panel (01/29/2018 7:12 AM CDT) Triglycerides 124 0 - 149 mg/dL 01/29/2018 7:59 AM T [facility] HISTORICAL RESULTS Comment: National Lipid Association/NCEP Guidelines: ?? Normal ?< 150 mg/dL ?? Borderline high ?? 150-199 mg/dL ?? High ?200-499 mg/dL ?? Very High ? >=500 mg/dL Cholesterol 158 0 - 199 mg/dL 01/29/2018 7:59 AM CDT [facility] HISTORICAL RESULTS Comment: National Lipid Association/NCEP Guidelines: Desirable ? < 200 mg/dL Borderline high: ??200-239 mg/dL High Risk: ?>=240 mg/dL HDL Cholesterol 60 mg/dL 8 7:59 AM CDT [facility] HISTORICAL RESULTS Comment: Reference Ranges: ? Males: >=40 mg/dL ? Females: >=50 mg/dL LDL Cholesterol, Calc 73 0 - 129 mg/dL 01/29/2018 7:59 AM T [facility] HISTORICAL RESULTS Comment: National Lipid Association/NCEP Guidelines: ??Optimal ? < 100 mg/dL ??Near Optimal ?100-129 mg/dL ??Borderline high 130-159 mg/dL ??High ?>=160 mg/dL Cholesterol/HDL Ratio 2.6 01/29/2018 7:59 AM T [facility] HISTORICAL RESULTS Comment: Optimal ??< 3.5:1 High ? > 5:1 01/29/2018 7:12 AM CDT 01/29/2018 7:15 AM CDT us Alex Browne MD LAB BLOOD ORDERABLES Final Result [facility] HISTORICAL RESULTS * (ABNORMAL) Comprehensive metabolic panel (01/29/2018 7:12 AM CDT) Sodium 139 135 - 145 mmol/L 01/29/2018 7:59 AM T [facility] HISTORICAL RESULTS Potassium 4.1 3.3 - 5.1 mmol/L Chloride 101 96 - 108 mmol/L Carbon Dioxide 26 22 - 32 mmol/L Anion Gap 12 7 - 16 Glucose 108(H) 70 - 100 mg/dL 01/29/2018 7:59 AM T [facility] HISTORICAL RESULTS BUN 18 8 - 23 mg/dL Creatinine 0.8 0.5 - 1.1 mg/dL Comment: NOTE: Estimated GFR (Cockroft-Gault) will NOT be calculated unless patient Height and Weight were entered. Also, Kidney Disease Stage (GFR) and Estimated GFR (Cockroft-Gault) will NOT be calculated if Creatinine result is <0.2. Kidney Disease Stage 78 mL/MIN 01/29/2018 7:59 AM [email or web address] HISTORICAL RESULTS Comment: NOTE; ??The GFR is [...] 8.8 - 10.2 mg/dL 01/29/2018 7:59 AM [facility] HISTOR[facility] RESULTS Total Protein 7.7 6.4 - 8.3 g/dL 01/29/2018 7:59 AM [employer] [employer] HISTORICAL RESULTS Albumin 4.2 3.5 - 5.2 g/dL 01/29/2018 7:59 AM [facility] HISTORICAL RESULTS Globulin 3.5 2.3 - 3.5 gm/dL 01/29/2018 7:59 AM [employer] [facility] HISTORICAL RESULTS Albumin/Globulin Ratio 1.2 1.1 - 1.8 01/29/2018 7:59 AM [facility] HISTORICAL RESULTS Total Bilirubin 0.7 0.0 - 1.2 mg/dL 01/29/2018 7:59 AM [employer] [facility] HISTORICAL RESULTS AST 27 0 - 32 U/L 01/29/2018 7:59 AM [employer] [facility] [employer] HISTORICAL RESULTS ALT 41(H) 0 - 33 U/L 01/29/2018 7:59 AM CDT [facility] HISTORICAL RESULTS Alkaline Phosphatase 110(H) 35 - 104 U/L 01/29/2018 7:59 AM CDT [facility] HISTORICAL RESULTS 01/29/2018 7:12 AM CDT 01/29/2018 7:15 AM CDT us Alex Browne MD LAB BLOOD ORDERABLES Final Result [facility] HISTORICAL RESULTS documented in this encounter Visit Diagnoses Diagnosis Hypothyroidism Unspecified hypothyroidism Mixed hyperlipidemia Essential (primary) hypertension Unspecified essential hypertension Abnormal finding of blood chemistry Other specified disorders of bone density and structure, unspecified site documented in this encounter Care Teams Inspector Tool Relationship Specialty Start Date End Date Alex Browne MD PCP - General 06/23/17 09/18/18 documented as of this encounter
--- OUTSIDE RECORDS SUMMARY | 2024-06-23 15:47 | XMS_ITS | Encounter Summary ---
Author Organization [facility] Healthcare Address [address] [place] [address] Care Team Providers Care Performance Solutions Specialist Name Role Phone Alex Browne MD Primary Care Provider +1- [phone] Encounter Details Date Type Department Care Team (Latest Contact Info) Description 04/18/2018 7:45 PM CDT - 04/19/2018 5:26 AM CDT Hospital Encounter [facility] OP Eric Gonzalez MD [address] [address] Obstructive sleep apnea Social History Tobacco Use [...] (pediatric) documented in this encounter Care Teams Performance Solutions Specialist Relationship Specialty Start Date End Date Alex Browne MD PCP - General 06/23/17 09/18/18 documented as of this encounter
--- OUTSIDE RECORDS SUMMARY | 2024-06-23 15:47 | XMS_ITS | Encounter Summary ---
Author Organization [facility] Address [address] [place] [address] Care Team Providers Care Loft Worker Apprentice Name Role Phone Alex Browne MD Primary Care Provider +1- [phone] Encounter Details Date Type Department Care Team (Latest Contact Info) Description 02/27/2018 7:05 AM CDT Hospital Encounter [facility] OP Basil Staley, DO [address] [address] Secondary polycythemia; Abnormal levels of [...] 02/27/2018 8:21 AM - Electronically signed by Loewll Kidd M.D. AB: D: ??02/27/2018 8:21 AM T: ??02/27/2018 8:21 AM Report ID: [id number] Reading Location: ??[id number] [EOD] Narrative 02/27/2018 8:24 [...] by Lowell Kidd M.D. AB: Report ID: [id number] [id number] us Basil Staley DO IMG [...] AM T: ??02/27/2018 8:21 AM Report ID: [id number] Reading Location: ??[id number] [EOD] Narrative 02/27/2018 8:24 [...] by Lowell Kidd M.D. AB: Report ID: [id number] Reading Location: [place] [address] [EOD] us Basil Staley DO IMG US PROCEDURES Final Resul t documented in this encounter Visit Diagnoses Diagnosis Secondary polycythemia Polycythemia, secondary Abnormal levels of other serum enzymes documented in this encounter Care Teams Loft Worker Apprentice Relationship Specialty Start Date End Date Alex Browne MD PCP - General 06/23/17 09/18/18 documented as of this encounter
--- OUTSIDE RECORDS SUMMARY | 2024-06-23 15:47 | XMS_ITS | Encounter Summary ---
Author Organization [facility] Healthcare Address [address] [place] [address] Care Team Providers Care Plunger Scoop Operator Name Role Phone Alex Browne MD Primary Care Provider +1- [phone] Encounter Details Date Type Department Care Team (Late st Contact Info) Description 04/12/2018 7:53 PM CDT - 04/13/2018 5:41 AM CDT Hospital Encounter [facility] OP Eric Gonzalez MD [address] [address] Snoring; Hypersomnia Social History Tobacco Use Types [...] unspecified documented in this encounter Care Teams Plunger Scoop Operator Relationship Specialty Start Date End Date Alex Browne MD PCP - General 06/23/17 09/18/18 documented as of this encounter
--- OUTSIDE RECORDS SUMMARY | 2024-06-23 15:47 | XMS_ITS | Encounter Summary ---
Author Organization [facility] Healthcare Address [address] [place] [address] Care Team Providers Care Dial Printer Name Role Phone Alex Browne MD Primary Care Provider +1- [phone] Encounter Details Date Type Department Care Team (Late st Contact Info) Description 10/22/2018 9:45 AM CDT - 10/22/2018 10:14 AM CDT Hospital Encounter [facility] Eric Gonzalez MD [address] [facility] [address] [address] Social History Tobacco Use Types Packs/Day Years [...] on filedocumented in this encounter Care Teams Dial Printer Relationship Specialty Start Date End Date Alex Browne MD [address] [place] [id number] PCP - General 10/11/18 11/21/22 documented as of this encounter
--- OUTSIDE RECORDS SUMMARY | 2024-06-23 15:47 | XMS_ITS | Encounter Summary ---
Author Organization [facility] Healthcare Address [address] [place] [address] Care Team Providers Care Interface Control Officer Name Role Phone Unknown, Notinfile Primary Care Provider Unavail able Encounter Details Date Type Department Care Team (Latest Contact Info) Description 06/02/2017 10:24 AM ARTIFICIAL INTELLIGENCE SPECIALIST - 06/02/2017 11:59 PM ARTIFICIAL INTELLIGENCE SPECIALIST Hospital Encounter [facility] [phone] Jennyfer Figueroa MD [address] [place] [address] Discharge Disposition: Discharge to home or self [...] FLUID Routine Gen Lab 06/02/2017 10:24 AM ARTIFICIAL INTELLIGENCE SPECIALIST BODY FLUID CRYSTAL Routine Gen Lab 06/02/2017 10 :24 AM ARTIFICIAL INTELLIGENCE SPECIALIST DISCHARGE LABORATORY CUMULATIVE REPORT 06/02/2017 12:00 AM ARTIFICIAL INTELLIGENCE SPECIALIST documented in this encounter Results * (ABNORMAL) Cell count and differential, synovial fluid (06/02/2017 10:24 AM ARTIFICIAL INTELLIGENCE SPECIALIST) Body site, fld Right Knee CERBATSHEVA H Color, synovial fld Yellow(A) [facility] Clarity, fld Cloudy(A) [facility] BJ RBC, syn fld 561 cells/mcL [facility] Nucleated cells, synovial fld 327(H) 0 - 149 cells/mcL [facility] Cells diffd, synovial fld 100 Cells [facility] Neutrophils, fld 6 0 - 24 % [facility] Lymphs, fld 57 0 - 74 % [facility] Quay/Macrophag e Synovial 19 0 - 69 % [facility] Synovial cells, fld 18(H) 0 - 0 % [facility] Body fluid 06/02/2017 10:2 4 AM ARTIFICIAL INTELLIGENCE SPECIALIST 06/02/2017 4:09 PM ARTIFICIAL INTELLIGENCE SPECIALIST Narrative [facility] - 06/02/2017 8:35 PM ARTIFICIAL INTELLIGENCE SPECIALIST us Jennyfer Figueroa MD LAB BODY FLUIDS AND STOOLS O RDERABLES Final Result Performing Organization Address City/[facility]/ZIP Co de Phone Number [facility] [place] [address] * Crystal analysis, body fluid (06/02/2017 10:24 AM ARTIFICIAL INTELLIGENCE SPECIALIST) Specimen type, fld Synovial [facility] Body site, fld Right Knee [facility] Crystals None Seen None Seen [facility] Body fluid 06/02/2017 10:2 4 AM ARTIFICIAL INTELLIGENCE SPECIALIST 06/02/2017 4:09 PM ARTIFICIAL INTELLIGENCE SPECIALIST Narrative [facility] - 06/02/2017 8:35 PM ARTIFICIAL INTELLIGENCE SPECIALIST us Jennyfer Figueroa MD LAB BODY FLUIDS AND STOOLS O RDERABLES Final Result [facility] [place] [address] * DISCHARGE LABORATORY CUMULATIVE REPORT (06/02/2017 12:00 AM ARTIFICIAL INTELLIGENCE SPECIALIST) Narrative 06/02/2017 12:00 AM ARTIFICIAL INTELLIGENCE SPECIALIST Ordered by an unspecified provider. us Historical Provider LAB BLOOD ORDERABLES Re l Result documented in this encounter Visit Diagnoses Not on filedocumented in this encounter Care Teams Interface Control Officer Relationship Specialty Start Date End Date Unknown, Notinfile PCP - General 06/02/17 06/22/17 documented as of this encounter
== END 2024-06-16 13:00 | disposition home or self-care (01) ==
PROVIDERS: Emergency Provider Registered Nurse; PCP Physician Assistant
DX: H66.92 Otitis media, unspecified, left ear (principal); Z87.891 Personal history of nicotine dependence; E11.9 Type 2 diabetes mellitus without complications; Z79.84 Long term (current) use of oral hypoglycemic drugs; E78.00 Pure hypercholesterolemia, unspecified; E03.9 Hypothyroidism, unspecified; I10 Essential (primary) hypertension; M81.0 Age-related osteoporosis without current pathological fracture; M17.0 Bilateral primary osteoarthritis of knee; F41.9 Anxiety disorder, unspecified; F32.A Depression, unspecified
CPT/HCPCS: 99213; G0463

== ENCOUNTER 2025-02-25 13:36 | Outpatient (CLI) | payer MEDICARE, SELFPAY ==
--- NOTE | ~2025-02-25 | MM_ITS ---
EXAMINATION: MM screening [facility] BI w anjum HISTORY: Screening TECHNIQUE: Craniocaudal and mediolateral oblique 3-D tomosynthesis images were obtained and synthetic 2-D images were generated. CAD analysis was submitted and interpreted. COMPARISON: Mammograms 02/23/2024 and 01/16/2023 BREAST PARENCHYMAL COMPOSITION: Not Dense: The breasts are almost entirely fatty. FINDINGS: There is no evidence of suspicious mass, calcification, or architectural distortion to suggest malignancy in either breast. [There has been no significant interval change. IMPRESSION: 1. No mammographic evidence of malignancy. Recommend routine screening mammography in one year. BI-RADS Category 1: Negative Reviewed, dictated, and finalized at Location A. Reviewed, dictated and finalized at location Q. IMPRESSION: 1. No mammographic evidence of malignancy. Recommend routine screening mammogra phy in one year. BI-RADS Category 1: Negative
== END 2025-02-25 13:37 | disposition home or self-care (01) ==
LOC: MICIMG 13:37
PROVIDERS: PCP Physician Assistant; Visit Provider Physician Assistant
DX: Z12.31 Encounter for screening mammogram for malignant neoplasm of breast (principal)
CPT/HCPCS: 77063; 77067